=== PATIENT | male | born 1955 | race Caucasian/White ===

== ENCOUNTER → 2023-03-12 11:50 | Outpatient (CLI) | payer MEDICARE, SELFPAY ==
[2023-03-12 17:45] LABS: Basophils # 0.1 K/mm3 (0-0.2); Basophils % 0.4 % (0.1-2.0); Eosinophils # 0.3 K/mm3 (0.0-0.4); Eosinophils % 2.7 % (0.1-12.0); Hematocrit 45.5 % (42.0-52.0); Hemoglobin 15.6 g/dL (14.1-18.0); Lymphocytes # 2.2 K/mm3 (0.7-4.5); Lymphocytes % 19.2 % (10-50); Mean Corpuscular HGB Conc 34.2 g/dL (31.8-35.4); Mean Corpuscular Hemoglobin 30.8 pg (27.0-31.2); Mean Platelet Volume 9.5 fl (7.4-10.4); Monocytes # 0.8 K/mm3 (0.1-1.0); Monocytes % 6.7 % (1.7-9.3); Platelet Count 207 K/mm3 (142-424); Red Blood Count 5.05 M/mm3 (4.60-6.20); Red Cell Distribution Width 13.5 % (11.5-17.5); White Blood Count 11.2 K/mm3 (4.8-10.8)
[2023-03-12 17:48] LABS: Alanine Aminotransferase 24 U/L (12-78); Albumin Level 4.1 g/dl (3.5-5.0); Albumin/Globulin Ratio 1.2 (1.1-1.8); Alkaline Phosphatase 71 U/L (38-126); Anion Gap 13.2 mEq/L (5-15); Aspartate Amino Transferase 30 U/L (17-59); Bilirubin,Total 0.7 mg/dl (0.2-1.3); Blood Urea Nitrogen 17 mg/dl (9-20); Carbon Dioxide 24 mmol/L (22.0-30.0); Chloride 107 mmol/L (98-107); Estimated Glomerular Filt Rate 84 ml/min (>60); GFR (African American) 101 ML/MIN (>60); Globulin 3.3 g/dL (1.3-3.2); Glucose 98 mg/dl (74-100); Potassium 4.2 mmoL/L (3.5-5.1); Sodium 140 mmol/L (136-145); Total Protein,Serum 7.4 g/dl (6.3-8.2)
== END ==
PROVIDERS: PCP Nurse Practitioner Family; Visit Provider Nurse Practitioner Family
DX: I10 Essential (primary) hypertension (principal); E03.9 Hypothyroidism, unspecified
CPT/HCPCS: 80053; 84443; 85025

== ENCOUNTER → 2023-05-16 15:17 | Outpatient (CLI) | payer MEDICARE, SELFPAY ==
[2023-05-16 18:11] LABS: Amphetamine/Metha Screen,Urine Negative ng/ml (<1000); Barbiturates Screen,Urine Negative ng/ml (<200)
[2023-05-16 18:12] LABS: Benzodiazepines Screen,Urine Negative ng/ml (<200); Cannabinoid Screen,Urine Positive ng/ml (<50)
[2023-05-16 18:13] LABS: Cocaine Screen,Urine Negative ng/ml (<300)
[2023-05-16 18:14] LABS: Methadone Screen,Urine Negative ng/ml (<300)
[2023-05-16 18:15] LABS: Phencyclidine Screen,Urine Negative ng/ml (<25)
[2023-05-16 18:24] LABS: Opiate Screen,Urine Negative ng/ml (<300)
== END ==
PROVIDERS: PCP Family Medicine; Visit Provider Nurse Practitioner Family
DX: Z79.899 Other long term (current) drug therapy (principal)
CPT/HCPCS: 80305

== ENCOUNTER 2023-06-22 07:54 | Outpatient (CLI) | payer MEDICARE, SELFPAY ==
--- NOTE | 2023-06-22 07:55 | CT_ITS ---
FINAL REPORT TECHNIQUE: Axial imaging of the abdomen was obtained after the intravenous administration of contrast. This study was performed with techniques to keep radiation doses as low as reasonably achievable (ALARA). Individualized dose reduction techniques using automated exposure control or adjustment of mA and/or kV according to the patient's size were employed. CLINICAL HISTORY: eval for crohns FINDINGS: There is patchy airspace opacity left lower lobe which may represent atelectasis or mild pneumonia. Gallbladder is contracted. The liver has an unremarkable appearance, without evidence of mass. The gallbladder appears normal without evidence of gallstones. There is no evidence of biliary ductal dilatation. The pancreas appears normal. The spleen size is within normal limits. There is no evidence of renal mass or hydronephrosis. There is no evidence of adenopathy. No abnormal fluid collection is seen. No localized inflammatory processes identified. There is moderate gaseous distention with fluid. There is mild fecal impaction without evidence of bowel obstruction. There is no bowel wall thickening. Terminal ileum is normal. Appendix is normal. No imaging of the pelvis was obtained. IMPRESSION: No imaging of the pelvis obtained. Patchy airspace opacity left lower lobe which may represent atelectasis or mild pneumonia. No evidence of bowel wall thickening. Normal terminal ileum. Reviewed, Interpreted and Dictated by Jennifer Kelley MD Transcribed by Nilsa Penny Authenticated and [facility]
[2023-06-22 08:41] LABS: Blood Urea Nitrogen 23 mg/dl (9-20); Estimated Glomerular Filt Rate 66 ml/min (>60); GFR (African American) 80 ML/MIN (>60)
[2023-06-22] MEDS: 0.9 % SODIUM CHLORIDE 50 ML VIAL IV (10:00)
[2023-06-22] MEDS: SODIUM CHLORIDE 0.9% 10ML SYR (RAD ONLY) 10 ML IV (10:00)
[2023-06-22] MEDS: IOPAMIDOL-370 (76%);100ML BOTTLE 100 ML IV (10:01)
[2023-06-22] MEDS: BREEZA FLAVORED BEVERAGE 500ML BOTTLE (RAD USE ONLY) 1500 ML PO (10:01)
== END 2023-06-22 23:59 ==
LOC: RAD 07:55
PROVIDERS: PCP Family Medicine; Visit Provider Nurse Practitioner
DX: K50.90 Crohn's disease, unspecified, without complications (principal)
CPT/HCPCS: 36415; 74177; 82565; 84520; Q9967

== ENCOUNTER 2023-07-19 18:25 | Outpatient (CLI) | payer MEDICARE, SELFPAY ==
[2023-07-19 16:34] LABS: Basophils # 0.1 K/mm3 (0-0.2); Basophils % 0.6 % (0.1-2.0); Eosinophils # 0.3 K/mm3 (0.0-0.4); Eosinophils % 3.2 % (0.1-12.0); Hemoglobin 14.7 g/dL (14.1-18.0); Lymphocytes # 2.4 K/mm3 (0.7-4.5); Lymphocytes % 22.1 % (10-50); Mean Corpuscular HGB Conc 32.7 g/dL (31.8-35.4); Mean Corpuscular Hemoglobin 30.3 pg (27.0-31.2); Mean Corpuscular Volume 92.7 fl (80-94); Mean Platelet Volume 9.6 fl (7.4-10.4); Monocytes # 0.9 K/mm3 (0.1-1.0); Monocytes % 8.1 % (1.7-9.3); Neutrophils # 7.2 K/mm3 (1.8-7.8); Neutrophils % 66.1 % (37.0-80.0); Platelet Count 209 K/mm3 (142-424); Red Blood Count 4.85 M/mm3 (4.60-6.20); Red Cell Distribution Width 13.5 % (11.5-17.5); White Blood Count 10.9 K/mm3 (4.8-10.8)
[2023-07-19 16:37] LABS: Alanine Aminotransferase 24 U/L (12-78); Albumin Level 3.8 g/dl (3.5-5.0); Albumin/Globulin Ratio 1.2 (1.1-1.8); Alkaline Phosphatase 70 U/L (38-126); Anion Gap 7.6 mEq/L (5-15); Aspartate Amino Transferase 34 U/L (17-59); Bilirubin,Total 0.8 mg/dl (0.2-1.3); Blood Urea Nitrogen 19 mg/dl (9-20); Calcium 9.1 mg/dl (8.4-10.2); Carbon Dioxide 28 mmol/L (22.0-30.0); Chloride 108 mmol/L (98-107); Chol/HDL Ratio 5.4 (1-3.5); Cholesterol 156 mg/dl (140-200); Estimated Glomerular Filt Rate 74 ml/min (>60); GFR (African American) 90 ML/MIN (>60); Globulin 3.1 g/dL (1.3-3.2); Glucose 86 mg/dl (74-100); HDL Cholesterol 29 mg/dl (40-60); Potassium 4.6 mmoL/L (3.5-5.1); Sodium 139 mmol/L (136-145); Total Protein,Serum 6.9 g/dl (6.3-8.2); Triglycerides 157 mg/dl (30-150); VLDL Cholesterol 31 mg/dL (0-40)
[2023-07-19 16:48] LABS: Direct LDL Cholesterol 96.73 mg/dL (100-129)
[2023-07-19 17:08] LABS: Thyroid Stimulating Hormone 0.07 uIU/mL (0.465-4.68)
== END 2023-07-19 23:59 ==
LOC: LAB.DROPOF 18:26
PROVIDERS: PCP Family Medicine; Visit Provider Family Medicine
DX: I10 Essential (primary) hypertension; E03.8 Other specified hypothyroidism
CPT/HCPCS: 80053; 80061; 84443; 85025

== ENCOUNTER → 2023-07-26 20:21 | Outpatient (CLI) | payer MEDICARE, SELFPAY | PROVIDERS: PCP Family Medicine; Visit Provider Nurse Practitioner Family | DX: G47.33 Obstructive sleep apnea (adult) (pediatric) (principal); R06.83 Snoring; R40.0 Somnolence; I10 Essential (primary) hypertension; E66.9 Obesity, unspecified; Z68.37 Body mass index [BMI] 37.0-37.9, adult | CPT/HCPCS: 95811 ==

== ENCOUNTER 2023-09-11 14:56 | Outpatient (CLI) | payer MEDICARE, SELFPAY | END 2023-09-11 23:59 | disposition home or self-care (01) | LOC: LAB 14:58 | PROVIDERS: PCP Family Medicine; Visit Provider Nurse Practitioner | DX: K50.90 Crohn's disease, unspecified, without complications (principal); R19.7 Diarrhea, unspecified | CPT/HCPCS: 83993 ==

== ENCOUNTER 2023-09-11 15:28 | Outpatient (POV) | payer MEDICARE, SELFPAY | END 2023-09-11 23:59 | disposition home or self-care (01) | LOC: SC 15:28 | PROVIDERS: PCP Family Medicine; Visit Provider Dermatology | DX: Z00.00 Encounter for general adult medical examination without abnormal findings (principal) ==

== ENCOUNTER 2023-09-18 18:00 | Outpatient (CLI) | payer MEDICARE, SELFPAY | END 2023-09-18 23:59 | disposition home or self-care (01) | LOC: LAB.DROPOF 09-19 12:58 | PROVIDERS: PCP Family Medicine; Visit Provider Family Medicine | DX: E03.9 Hypothyroidism, unspecified (principal) | CPT/HCPCS: 84443 ==

== ENCOUNTER 2023-12-06 08:42 | Day surgery (SDC) | payer MEDICARE, SELFPAY ==
[2023-12-04 13:05] VITALS: BMI 35.2
[2023-12-06] MEDS: LACTATED RINGERS 1000ML 1,000 ML 100 ML IV (08:56)
[2023-12-06 08:58] VITALS: BP 168/83; PULSE 59; RESP 18; TEMP 36.2; O2SAT 97
[2023-12-06 09:38] VITALS: O2SAT 97
--- NOTE | 2023-12-06 09:49 | EXP.ANES.CKL ---
[facility] Disclaimer: The information contained in this section may have been updated after the patient was seen, as this information can be updated by other users. Medical History Anxiety Crohn disease Hypertension Depression BPH (benign prostatic hyperplasia) Edema Narcolepsy Hyperlipidemia Hypothyroidism Surgical History Previous back surgery Family History Father Cancer lung Grandmother Coronary artery disease Sister Cancer thyroid Social History Smoking Status: Former smoker smoking status stop date: 05/21/2004 alcohol intake: current alcohol intake frequency: a few times a week substance use type: denies use current occupational status: retired Travel in the last 8 weeks: None household members: spouse housing: house marital status: caffeine: Yes do you feel safe at home: Yes victim of physical abuse: No victim of emotional abuse: No victim of sexual abuse: No would you like helpful sources: No [facility] Anesthesia Checklist Patient Identification Patient Identification: Arm Band Structural Data Admitted From: Home Planned Operative Procedure/s: colonoscopy Consent for Planned Operative Procedure(s) Verified: Yes Verified Documents: Surgical Consent and History and Physical NPO Status Verified Time NPO: 00:00 Additional verifications Anesthesia Reactions: No Airway Assessment Mallampati Score:: Class III C-Spine Mobility Assessed: Yes TMJ Mobility Assessed: Yes Dentition: Good Dentition Neurological Assessment Level of Consciousness: Awake, Alert and Appropriate Anesthesia Plan Anesthesia Risk discussed: Yes Anesthesia Plan: Verified ASA Class: III Anesthesia Type: MAC
--- NOTE | 2023-12-06 09:54 | HMH.SCOPE ---
Procedure: Date: 12/06/23 Patient Date of :: 1955 Procedure Performed:: Screening colonoscopy Indications:: Possible history of crohns disease Performing Provider:: Ana Martinez MD Referring Provider:: Cristal Martinez APRN Sedation:: Propofol Procedure:: After placing the patient in the left lateral decubitus position, the colonoscopy was gently inserted into the rectum and under direct visualization advanced to the cecum which was identified by transillumination in the right lower quadrant, identification of the ileocecal valve, appendiceal orifice, and cecal strap. Color, texture, mucosa, and anatomy of the colon were carefully examined with the scope. Findings:: Anal canal: normal Rectum: normal Sigmoid colon: normal without polyps or inflammatory changes Descending colon: normal without polyps or inflammatory changes Splenic flexure: normal Transverse colon: normal without polyps or inflammatory changes Hepatic flexure: normal Ascending colon: normal without polyps or inflammatory changes Cecum: normal Terminal ileum: not visualized but normal per enterography Impression: Normal colonoscopy. No evidence of IBD. Recommendations:: Follow up examination in about TEN years or so, sooner if clinically indicated. Complications:: None Estimated blood obtained (mL): 0 Colonoscopy Component Colonoscopy Component Was a colonoscopy performed during today's procedure?: Yes Recommended follow up colonoscopy of at least 10 years?: Yes
[2023-12-06 09:55] VITALS: BP 108/43; PULSE 48; RESP 18; TEMP 36.8; O2SAT 92
[2023-12-06 10:05] VITALS: BP 102/54; PULSE 47; RESP 18; O2SAT 95
[2023-12-06 10:15] VITALS: BP 127/85; PULSE 72; RESP 18; O2SAT 93
[2023-12-06 10:30] VITALS: BP 132/66; PULSE 48; RESP 18; O2SAT 98
== END 2023-12-06 10:52 | disposition home or self-care (01) ==
PROVIDERS: PCP Family Medicine; Visit Provider Internal Medicine Gastroenterology
PROC: (CPT G0121; principal; 2023-12-06 09:30)
DX: Z12.11 Encounter for screening for malignant neoplasm of colon (principal); K50.90 Crohn's disease, unspecified, without complications
CPT/HCPCS: G0121; J7120

== ENCOUNTER 2024-01-07 10:56 | Outpatient (CLI) | payer MEDICARE, SELFPAY | END 2024-01-07 23:59 | disposition home or self-care (01) | LOC: LAB.DROPOF 01-08 10:56 | PROVIDERS: PCP Family Medicine; Visit Provider Family Medicine | DX: E03.9 Hypothyroidism, unspecified (principal) | CPT/HCPCS: 84443 ==

== ENCOUNTER 2024-07-04 13:43 | Outpatient (CLI) | payer MEDICARE, SELFPAY ==
[2024-07-04 16:30] LABS: Basophils # 0.1 K/mm3 (0-0.2); Basophils % 0.5 % (0.1-2.0); Eosinophils # 0.2 K/mm3 (0.0-0.4); Eosinophils % 2.5 % (0.1-12.0); Hematocrit 43.4 % (42.0-52.0); Hemoglobin 14.4 g/dL (14.1-18.0); Lymphocytes # 2.4 K/mm3 (0.7-4.5); Lymphocytes % 25.2 % (10-50); Mean Corpuscular HGB Conc 33.2 g/dL (31.8-35.4); Mean Corpuscular Hemoglobin 28.7 pg (27.0-31.2); Mean Corpuscular Volume 86.6 fl (80-94); Mean Platelet Volume 11.2 fl (7.4-10.4); Monocytes # 0.9 K/mm3 (0.1-1.0); Monocytes % 9.5 % (1.7-9.3); Neutrophils # 5.8 K/mm3 (1.8-7.8); Neutrophils % 61.9 % (37.0-80.0); Platelet Count 223 K/mm3 (142-424); Red Blood Count 5.01 M/mm3 (4.60-6.20); Red Cell Distribution Width 12.8 % (11.5-17.5); White Blood Count 9.4 K/mm3 (4.8-10.8)
[2024-07-04 18:16] LABS: Alanine Aminotransferase 28 U/L (12-78); Albumin/Globulin Ratio 1.5 (1.1-1.8); Alkaline Phosphatase 63 U/L (38-126); Anion Gap 15.1 mEq/L (5-15); Aspartate Amino Transferase 27 U/L (17-59); Bilirubin,Total 0.5 mg/dl (0.2-1.3); Blood Urea Nitrogen 11 mg/dl (9-20); Calcium 8.8 mg/dl (8.4-10.2); Carbon Dioxide 25 mmol/L (22.0-30.0); Chloride 103 mmol/L (98-107); Estimated Glomerular Filt Rate 96 ml/min (>60); GFR (African American) 116 ML/MIN (>60); Globulin 2.7 g/dL (1.3-3.2); Glucose 98 mg/dl (74-100); Potassium 4.1 mmoL/L (3.5-5.1); Sodium 139 mmol/L (136-145); Total Protein,Serum 6.7 g/dl (6.3-8.2)
[2024-07-04 19:12] LABS: HIV Combo NEGATIVE (Negative)
[2024-07-04 19:20] LABS: Hepatitis C Ab Qual. W/ RFX NEGATIVE (Negative)
== END 2024-07-04 23:59 | disposition home or self-care (01) ==
LOC: LAB.DROPOF 07-06 04:30
PROVIDERS: PCP Nurse Practitioner Family; Visit Provider Nurse Practitioner Family
DX: R60.9 Edema, unspecified (principal); J44.9 Chronic obstructive pulmonary disease, unspecified; E03.9 Hypothyroidism, unspecified; Z11.59 Encounter for screening for other viral diseases
CPT/HCPCS: 80053; 84443; 85025; 86803; 87389

== ENCOUNTER → 2024-07-18 20:10 | Outpatient (CLI) | payer MEDICARE, SELFPAY | PROVIDERS: PCP Family Medicine; Visit Provider Specialist | DX: G47.33 Obstructive sleep apnea (adult) (pediatric) (principal); G47.39 Other sleep apnea; I10 Essential (primary) hypertension | CPT/HCPCS: 95811 ==

== ENCOUNTER 2024-10-23 09:48 | Day surgery (SDC) | payer MEDICARE, SELFPAY ==
[2024-10-23] VITALS (7 sets, daily range): BP systolic 115–160; BP diastolic 71–89; PULSE 43–59; RESP 16–18; TEMP 36.3–36.5; O2SAT 93–98; BMI 36.6
[2024-10-23] MEDS: LACTATED RINGERS 1000ML 1,000 ML 50 ML IV (11:16)
--- NOTE | 2024-10-23 11:39 | P.PNANES_ITS ---
[facility] Disclaimer: The information contained in this section may have been updated after the patient was seen, as this information can be updated by other users. Medical History (Updated 10/23/24 @ 11:04 by Sharla Wise RN) Sleep apnea COPD (chronic obstructive pulmonary disease) History of gastroesophageal reflux (GERD) Intolerance to BiPAP/CPAP Skin cancer Anxiety Crohn disease Hypertension Depression BPH (benign prostatic hyperplasia) Edema Narcolepsy Hyperlipidemia Hypothyroidism Surgical History (Updated 10/23/24 @ 11:04 by Sharla Wise RN) Status post surgical removal of malignant neoplasm of skin Previous back surgery Family History Father Cancer lung Grandmother Coronary artery disease Sister Cancer thyroid Social History (Updated 10/23/24 @ 11:04 by Sharla Wise RN) Smoking Status: Former smoker smoking status stop date: 05/21/2004 alcohol intake: current alcohol intake frequency: 0-2 drinks per day substance use type: denies use current occupational status: retired Travel in the last 8 weeks?: None household members: spouse housing: house marital status: caffeine: Yes do you feel safe at home: Yes victim of physical abuse: No victim of emotional abuse: No victim of sexual abuse: No would you like helpful sources: No Have you lived/traveled outside US in past 30 days?: No Contact w/someone who lives/traveled outside US past 30 days?: No Exposure to someone with infectious disease in past 14 days?: No Do you have a fever (greater than 100.4 F or 38 C)?: No Have you tested positive for COVID-19?: No Exposed to someone with COVID-19 in past 14 days?: No Do you have a sore throat?: No Do you have a cough?: No Do you have any weakness?: No Are you experiencing any nausea/vomitting?: No Do you have any diarrhea?: No Are you experiencing any unusual bleeding?: No Do you have any muscle aches/pain?: No Do you have any abdominal pain?: No Are you experiencing loss of taste or smell?: No [facility] Anesthesia Checklist Patient Identification Patient Identification: Arm Band Structural Data Admitted From: Home Planned Operative Procedure/s: EGD Consent for Planned Operative Procedure(s) Verified: Yes Verified Documents: Surgical Consent and History and Physical NPO Status Verified Time NPO: 00:00 Additional verifications Anesthesia Reactions: No Airway Assessment Mallampati Score:: Class II C-Spine Mobility Assessed: Yes TMJ Mobility Assessed: Yes Dentition: Edentulous Neurological Assessment Level of Consciousness: Awake, Alert and Appropriate Anesthesia Plan Anesthesia Risk discussed: Yes Anesthesia Plan: Verified ASA Class: III Anesthesia Type: MAC
--- NOTE | 2024-10-23 11:40 | EXP.HP ---
History of Present Illness *Admission Date: 10/23/24 *Reason for visit:: Dysphagia, early satiety, regurgitation and bloating *History of present illness: Mr. Cook is a 69-year-old gentleman who is here for diagnostic colonoscopy secondary to dysphagia, fullness, early satiety, regurgitation, bloating and weight loss. The examination is deemed medically necessary for diagnostic upper endoscopy. The patient has been seen, interviewed and examined prior to the procedure by both myself and the anesthesia provider. [facility] Disclaimer: The information contained in this section may have been updated after the patient was seen, as this information can be updated by other users. Medical History (Updated 10/23/24 @ 11:04 by Sharla Wise RN) Sleep apnea COPD (chronic obstructive pulmonary disease) History of gastroesophageal reflux (GERD) Intolerance to BiPAP/CPAP Skin cancer Anxiety Crohn disease Hypertension Depression BPH (benign prostatic hyperplasia) Edema Narcolepsy Hyperlipidemia Hypothyroidism Surgical History (Updated 10/23/24 @ 11:04 by Sharla Wise RN) Status post surgical removal of malignant neoplasm of skin Previous back surgery Family History Father Cancer lung Grandmother Coronary artery disease Sister Cancer thyroid Social History (Updated 10/23/24 @ 11:04 by Sharla Wise RN) Smoking Status: Former smoker smoking status stop date: 05/21/2004 alcohol intake: current alcohol intake frequency: 0-2 drinks per day substance use type: denies use current occupational status: retired Travel in the last 8 weeks?: None household members: spouse housing: house marital status: caffeine: Yes do you feel safe at home: Yes victim of physical abuse: No victim of emotional abuse: No victim of sexual abuse: No would you like helpful sources: No Have you lived/traveled outside US in past 30 days?: No Contact w/someone who lives/traveled outside US past 30 days?: No Exposure to someone with infectious disease in past 14 days?: No Do you have a fever (greater than 100.4 F or 38 C)?: No Have you tested positive for COVID-19?: No Exposed to someone with COVID-19 in past 14 days?: No Do you have a sore throat?: No Do you have a cough?: No Do you have any weakness?: No Are you experiencing any nausea/vomitting?: No Do you have any diarrhea?: No Are you experiencing any unusual bleeding?: No Do you have any muscle aches/pain?: No Do you have any abdominal pain?: No Are you experiencing loss of taste or smell?: No Other Medical History Have you received the Pneumonia Vaccine: Yes Review of Systems Review of Systems Review of systems (narrative): Negative *Cardiovascular Comments: Negative *Gastrointestinal Comments: Negative *Genitourinary Comments: Negative *Musculoskeletal Comments: Negative *Neurologic Comments: Negative Meds Home Medications and Allergies Home Medications ?Medication ?Instructions ?Recorded ?Confirmed ?Type rosuvastatin 20 mg tablet (Crestor) 20 mg PO DAILY Cholesterol 30 days 03/16/23 10/23/24 Rx #30 tabs tamsulosin 0.4 mg capsule See Rx Instructions .Route 01/11/24 10/23/24 Rx .COMPLEX #30 caps fluticasone 250 mcg-salmeterol 50 1 inh inhalation BID #60 ea 07/04/24 10/23/24 Rx mcg/dose blistr powdr for inhalation (Advair Diskus) levothyroxine 50 mcg tablet 50 mcg PO DAILY #30 tabs 07/08/24 10/23/24 Rx bupropion HCl 300 mg 24 hr tablet, 300 mg PO DAILY anxiety/depression 07/14/24 10/23/24 Rx extended release (Wellbutrin XL) 30 days #30 tabs levothyroxine 200 mcg tablet 200 mcg PO DAILY hypothyroid #30 09/01/24 10/23/24 Rx (Synthroid) tabs fenofibrate 160 mg tablet 160 mg PO DAILY #30 tabs 09/24/24 10/23/24 Rx losartan 25 mg tablet (Cozaar) 25 mg PO DAILY HTN #90 tabs 09/24/24 10/23/24 Rx armodafinil 200 mg tablet (Nuvigil) 200 mg PO DAILY narcolepsy #30 tabs 10/08/24 10/23/24 Rx New Prescriptions to Start Prescriptions: Allergies Allergy/AdvReac Type Severity Reaction Status Date / Time No Known Allergies Allergy Verified 10/22/24 11:09 Exam Data for Last 24 hours Vital signs and Labs for Last 24 Hours: Temp Pulse Resp BP Pulse Ox O2 Del Method 97.7 F 59 L 18 152/77 H 93 L Room Air 10/23/24 10:59 10/23/24 10:59 10/23/24 10:59 10/23/24 10:59 10/23/24 10:59 10/23/24 10:59 I & O for Last 24 hours: Intake & Output 10/20/24 10/21/24 10/22/24 10/23/24 23:59 23:59 23:59 23:59 Weight 270 lb *Routine HEENT Exam Head: Present normocephalic Eye: Present EOMI and PERRL ENT: Present mucous membranes moist *Routine Neck Exam Neck: Present supple *Routine Respiratory Exam Respiratory: Present CTA bilaterally *Routine Cardiovascular Exam Cardiovascular: Present RRR *Routine Abdominal Exam Abdominal: Present soft and normoactive bowel sounds; Absent tenderness *Routine Rectal Exam Rectal:: deferred *Routine Genitalia Exam Genitalia:: deferred *Routine Extremities Exam Extremities: Absent cyanosis, clubbing or edema *Routine Skin Exam Skin: Present warm; Absent rash *Routine Neurological Exam Neurological: Present alert and oriented X3 Assessment and Plan *Assessment and plan (1) Dysphagia: Status: Acute Category: Medical Code(s): R13.10 - Dysphagia, unspecified (2) Regurgitation of food: Status: Acute Category: Medical Code(s): R11.10 - Vomiting, unspecified (3) Early satiety: Status: Acute Category: Medical Code(s): R68.81 - Early satiety (4) Weight loss: Status: Acute Category: Medical Code(s): R63.4 - Abnormal weight loss (5) Bloating: Status: Acute Category: Medical Code(s): R14.0 - Abdominal distension (gaseous) Plan A/P: 1. Dysphagia with regurgitation of food, early satiety, weight loss and bloating is the preprocedural diagnosis. The patient will be anesthetized/sedated using MAC sedation. The patient has been seen and examined. Cardiac and lung assessment prior to the examination is stable. Proceed with planned diagnostic EGD.
--- NOTE | 2024-10-23 11:55 | P.PCN_ITS ---
[facility] Procedure Note Date: 10/23/24 Time: 12:12 Procedure Note:: Upper Endoscopy Procedure Report: Esophagogastroduodenoscopy with cold biopsies and TTS balloon dilation Endoscopost: Elver Pitt II, MD Referring Physician: Jatinder Clifford MD Date of Procedure: October 23, 2024 Equipment: Olympus GIF 190 standard upper endoscope Sedation: MAC sedation Indications: Mr. Cook is a 69-year-old gentleman who is here for diagnostic/therapeutic upper endoscopy secondary to choking and dysphagia. About 4 weeks ago he started Astepro nasal spray and then developed dysphagia. He is having food regurgitation into his nose and mouth. He has lost 6 pounds in the last couple of weeks. He is able to tolerate liquids. He reports no heartburn or reflux. He has noted some bloating, gassiness and belching. He was diagnosed with Crohn's disease about 13 years ago elsewhere. His colonoscopy in November 2023 (Ana Martinez MD) was normal with no evidence of active Crohn's disease. Dr. Martinez did not evaluate the terminal ileum and thus undetermined whether he had Crohn's ileitis. Procedure: Prior to the procedure, a history and physical exam was performed, and patient's medications and allergies were reviewed. The risks, benefits and alternatives of the sedation and procedure were discussed with the patient. All questions were answered and informed consent was obtained. The patient was brought to the procedure room. Patient identification and proposed procedure were verified by the physician and the nurse. The patient was placed in a left lateral decubitus position and the scope was passed under direct vision. Throughout the procedure, the patient's blood pressure, pulse, and oxygen saturations were monitored continuously. The upper GI endoscopy was accomplished without difficulty. The patient tolerated the procedure well. Findings: The scope was passed directly into the upper esophagus and advanced to the fourth portion of duodenum and proximal jejunum. A cold biopsy was taken from the proximal jejunum for disaccharidase assay. The post bulbar duodenum and duodenal bulb were normal with normal mucosa and conniventes. The scope was withdrawn through a normal duodenal bulb and pylorus into the stomach. There was mild antral gastropathy. The remainder of the body and fundus of the stomach was normal. Upon retroflexion there was a very small sliding hiatal hernia with extrinsic mass like protuberance at the gastroesophageal junction. The scope was then withdrawn into the esophagus. In the distal esophagus was a friable and fungating mass that encompassed one half of the circumference of the esophagus along the posterior wall and extended approximately 2 cm. Multiple cold biopsies were obtained and there was some stenosis/stricturing at this site. There were stasis changes in the mid and proximal esophagus with some esophageal dilation of luminal diameter. The distal malignant appearing stricture was then dilated to 20 mm with a TTS hydrostatic balloon. Impression: 1. Friable/fungating mass in distal esophagus (at GE junction) extending 2 cm along posterior esophageal wall?status post multiple biopsies and dilation to 20 mm Plan: I do suspect malignant distal esophageal stricture. I will follow-up the biopsies and discussed the findings with the patient and family. I will obtain staging workup with CT scan of the chest and abdomen. I will make referral to oncology versus thoracic surgery based upon CT staging.
[2024-10-29 17:51] LABS: Disclaimer Notes (.); Interpretation Notes (.); Lactase 11.4 (>/= 14.0); Maltase 246.17 (>/= 110.0); Palatinase 14.81 (>/= 8.5); Reference Notes (.); Sucrase 54.24 (>/= 25.0)
== END 2024-10-23 13:37 | disposition home or self-care (01) ==
PROVIDERS: PCP Family Medicine; Visit Provider Internal Medicine Gastroenterology
PROC: 0DJ08ZZ Inspection of Upper Intestinal Tract, Via Natural or Artificial Opening Endoscopic (ICD-10-PCS; CPT 43239; principal; 2024-10-23 12:00)
DX: C16.0 Malignant neoplasm of cardia (principal); K22.2 Esophageal obstruction; K31.89 Other diseases of stomach and duodenum; K44.9 Diaphragmatic hernia without obstruction or gangrene; G47.30 Sleep apnea, unspecified; J44.9 Chronic obstructive pulmonary disease, unspecified; F41.9 Anxiety disorder, unspecified; F32.A Depression, unspecified; I10 Essential (primary) hypertension; N40.0 Benign prostatic hyperplasia without lower urinary tract symptoms; G47.419 Narcolepsy without cataplexy; E78.5 Hyperlipidemia, unspecified; E03.9 Hypothyroidism, unspecified; Z87.891 Personal history of nicotine dependence; Z79.899 Other long term (current) drug therapy; Z79.51 Long term (current) use of inhaled steroids; Z79.890 Hormone replacement therapy
CPT/HCPCS: 43239; 43249; 82657; 88305; 88341; 88342; 88360; C1726; J2003; J2704; J7120

== ENCOUNTER 2024-10-25 14:38 | Emergency (ER) | payer MEDICARE, SELFPAY ==
[2024-10-25 14:45] VITALS: RESP 16
[2024-10-25 14:49] VITALS: BP 184/88; PULSE 67; RESP 18; TEMP 37.1; O2SAT 98; BMI 35.3
--- NOTE | 2024-10-25 14:49 | CT_ITS ---
PROCEDURE INFORMATION: Exam: CT Head Without Contrast Exam date and time: 10/25/2024 2:52 PM Age: 69 years old Clinical indication: Stroke-like symptoms; Other: Possible stroke TECHNIQUE: Imaging protocol: Computed tomography of the head without contrast. Radiation optimization: All CT scans at this facility use at least one of these dose optimization techniques: automated exposure control; mA and/or kV adjustment per patient size (includes targeted exams where dose is matched to clinical indication); or iterative reconstruction. Other technique: STROKE PROTOCOL was implemented. COMPARISON: No relevant prior studies available. FINDINGS: Brain: Large old right posterior middle cerebral artery distribution parietal right-sided infarct. Moderate to severe atrophy and moderate to severe small vessel ischemic change in the deep white matter. No midline shift. No intracranial bleed. Cerebral ventricles: No ventriculomegaly. Paranasal sinuses: Visualized sinuses are unremarkable. No fluid levels. Mastoid air cells: Visualized mastoid air cells are well aerated. Bones: Unremarkable. No acute fracture. Soft tissues: Unremarkable. IMPRESSION: No acute abnormality. 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 ASSESSMENT: ASPECTS (Tere Stroke Program Early CT Score) is 10.
--- NOTE | 2024-10-25 14:49 | CT_ITS ---
PROCEDURE INFORMATION: Exam: CTA Neck With Contrast Exam date and time: 10/25/2024 2:55 PM Age: 69 years old Clinical indication: Possible stroke TECHNIQUE: Imaging protocol: Computed tomographic angiography of the neck with contrast. Exam focused on the cervical segments of the vasculature. 3D rendering (Not supervised by radiologist): MIP and/or 3D reconstructed images were created by the technologist. Radiation optimization: All CT scans at this facility use at least one of these dose optimization techniques: automated exposure control; mA and/or kV adjustment per patient size (includes targeted exams where dose is matched to clinical indication); or iterative reconstruction. Contrast material: ISOVUE 370; Contrast volume: 150 ml; Contrast route: INTRAVENOUS (IV); COMPARISON: CT ANGIO NECK 10/25/2024 2:55 PM FINDINGS: Right common carotid artery: No stenosis. No dissection or occlusion. Right internal carotid artery: Mild stenosis of the extracranial, proximal ICA segment. No dissection or occlusion. Right external carotid artery: No occlusion or stenosis of the origin. Left common carotid artery: No stenosis. No dissection or occlusion. Left internal carotid artery: Mild stenosis of the extracranial, proximal ICA segment. No dissection or occlusion. Left external carotid artery: No occlusion or stenosis of the origin. Right vertebral artery: No stenosis. No dissection or occlusion. Left vertebral artery: No stenosis. No dissection or occlusion. Brain: Chronic encephalomalacia in the right posterior parietal lobe, from remote infarction. No findings to suggest acute infarction. Severely limited study since the contrast bolus was obtained in the pulmonary artery phase of contrast, rather than the aortic phase of contrast, limiting opacification of the cervical and intracranial arteries. Soft tissues: Normal. No significant soft tissue swelling. Bones/joints: No acute fracture. IMPRESSION: 1. Severely limited study since the contrast bolus was obtained in the pulmonary artery phase of contrast, rather than the aortic phase of contrast, limiting opacification of the cervical and intracranial arteries. 2. Mild stenosis of the bilateral extracranial, proximal ICA segments. REFERENCES: NASCET CRITERIA. The degree of stenosis in the cervical segment of the internal carotid artery is based on NASCET criteria. Normal is no stenosis. Mild is less than 50% stenosis. Moderate is 50-69% stenosis. Severe is 70% to 99% stenosis. Total occlusion is no detectable patent lumen.
--- NOTE | 2024-10-25 14:49 | ECG_ITS ---
APPROVED REPORT Exam: Resting ECG HR:52 bpm ECG Measurements Heart Rate 52 AXES NJ 322 P 79 QRSd 101 QRS -42 QT 455 T 11 QTc 434 Conclusion SINUS BRADYCARDIA WITH FIRST DEGREE AV BLOCK LEFT AXIS DEVIATION [QRS AXIS < -30] Electronically signed by : EDILBERTO MEYER, 10/26/2024 07:13:46
--- NOTE | 2024-10-25 14:49 | CT_ITS ---
PROCEDURE INFORMATION: Exam: CTA Head With Contrast, Arteriography Exam date and time: 10/25/2024 2:55 PM Age: 69 years old Clinical indication: Stroke-like symptoms; Other: Possible stroke TECHNIQUE: Imaging protocol: Computed tomographic angiography of the head with contrast. Exam focused on the arteries. 3D rendering (Not supervised by radiologist): MIP and/or 3D reconstructed images were created by the technologist. Radiation optimization: All CT scans at this facility use at least one of these dose optimization techniques: automated exposure control; mA and/or kV adjustment per patient size (includes targeted exams where dose is matched to clinical indication); or iterative reconstruction. Contrast material: ISO 370; Contrast volume: 150 ml; Contrast route: INTRAVENOUS (IV); COMPARISON: CT HEAD/BRAIN WO CON 10/25/2024 2:52 PM FINDINGS: ANTERIOR CIRCULATION: Right internal carotid artery: Intracranial segment is patent with no significant stenosis. No aneurysm. Right middle cerebral artery: There does appear to be a possible clot or non filling of the right middle cerebral artery M2 branch. Right anterior cerebral artery: No occlusion or significant stenosis. No aneurysm. Left internal carotid artery: Intracranial segment is patent with no significant stenosis. No aneurysm. Left middle cerebral artery: No occlusion or significant stenosis. No aneurysm. Left anterior cerebral artery: No occlusion or significant stenosis. No aneurysm. POSTERIOR CIRCULATION: Right vertebral artery: No occlusion or significant stenosis. No aneurysm. Left vertebral artery: No occlusion or significant stenosis. No aneurysm. Basilar artery: No occlusion or significant stenosis. No aneurysm. Right posterior cerebral artery: No occlusion or significant stenosis. No aneurysm. Left posterior cerebral artery: No occlusion or significant stenosis. No aneurysm. Other arteries: Very poor contrast noted within the arterial system. Brain: Please see the head CT report. Cerebral ventricles: No ventriculomegaly. Bones/joints: Unremarkable. No acute fracture. Soft tissues: Unremarkable. IMPRESSION: Poor arterial contrast with a questionable thrombus within a M2 branch. If clinically indicated consider repeat examination with better contrast.
--- NOTE | 2024-10-25 14:49 | CT_ITS ---
PROCEDURE INFORMATION: Exam: CTA Chest With Contrast Exam date and time: 10/25/2024 3:04 PM Age: 69 years old Clinical indication: Shortness of breath; Additional info: SOA, resp difficulty TECHNIQUE: Imaging protocol: Computed tomographic angiography of the chest with contrast. Exam focused on the arteries. 3D rendering (Not supervised by radiologist): MIP and/or 3D reconstructed images were created by the technologist. Radiation optimization: All CT scans at this facility use at least one of these dose optimization techniques: automated exposure control; mA and/or kV adjustment per patient size (includes targeted exams where dose is matched to clinical indication); or iterative reconstruction. Contrast material: ISO 370; Contrast volume: 50 ml; Contrast route: INTRAVENOUS (IV); COMPARISON: CT ANGIO NECK 10/25/2024 2:55 PM FINDINGS: Pulmonary arteries: Borderline contrast in the main pulmonary artery at 245. No pulmonary emboli seen given the limitations of borderline contrast and imaging parameters. Aorta: Unremarkable. No aortic aneurysm. No aortic dissection. Lungs: Mild infiltrate in the left lower lobe possibly atelectasis. Pleural spaces: Unremarkable. No pneumothorax. No pleural effusion. Heart: Unremarkable. No cardiomegaly. No pericardial effusion. Lymph nodes: Unremarkable. No enlarged lymph nodes. Diaphragm: Hiatal hernia. Bones/joints: Unremarkable. No acute fracture. Soft tissues: Unremarkable. IMPRESSION: No acute findings.
--- NOTE | 2024-10-25 14:52 | ED_ITS ---
<Statement entered by Claudia Romo MD - 10/25/24 23:19> I was consulted by the JOHNATHON, and we discussed the complexity of the problems being addressed. I approved the treatment and management plan for this patient's care in the emergency department, thus performing a substantive portion of the medical decision making. Claudia Romo MD, SHAUNA, FACEP <Statement entered by Kendra Ayon DO - 10/25/24 15:00> I was consulted by the JOHNATHON, and we discussed the complexity of the problems being addressed. I approved the treatment and management plan for this patient's care in the emergency department, thus performing a substantive portion of the medical decision making. Patient arrives as a stroke alert with concern for slurred speech, facial asymmetry, tongue deviation per . They initially reported chest pain, but it does not sound like he is truly had any chest pain. She did note that he was breathing weird this morning. She states that she had him sit down and try to put his CPAP on but this did not help as it usually does. Last known well was last night sometime before going to bed. is not sure exactly what time he went to bed or when it was that she last saw him normal last night. NIH or scale of 6 for dysarthria, aphasia, mild left facial asymmetry, and discoordination of the left upper extremity, though it is difficult to assess because he is having difficulty follow commands. He does answer orientation questions appropriately and does not have any significant limb weakness. He was taken emergently for CT scans stroke protocol given stroke symptoms, though he is outside of window for tPA/TNK. I added on a CTA PE protocol given his reported difficulty breathing at home and shortness of breath. Patient care signed out to the oncoming provider at my departure at 1500 Kendra Ayon DO Discharge Plan Disposition Patient Disposition: Xfer Other Prescriptions Prescriptions: No Action fluticasone propion-salmeterol [Advair Diskus] 250-50 mcg/dose blister with device 1 inh inhalation BID Qty: 60 2RF fenofibrate 160 mg tablet 160 mg PO DAILY Qty: 30 2RF losartan [Cozaar] 25 mg tablet 25 mg PO DAILY Qty: 90 0RF rosuvastatin [Crestor] 20 mg tablet 20 mg PO DAILY 30 Days Qty: 30 2RF tamsulosin 0.4 mg capsule See Rx Instructions .ROUTE .COMPLEX Qty: 30 2RF Dose Instruction: TAKE 1 CAPSULE 1 TIME EACH DAY FOR PROSTATE Rx Instructions: TAKE 1 CAPSULE 1 TIME EACH DAY FOR PROSTATE levothyroxine 50 mcg tablet 50 mcg PO DAILY Qty: 30 3RF bupropion HCl [Wellbutrin XL] 300 mg tablet extended release 24 hr 300 mg PO DAILY 30 Days Qty: 30 2RF levothyroxine [Synthroid] 200 mcg tablet 200 mcg PO DAILY Qty: 30 3RF armodafinil [Nuvigil] 200 mg tablet 200 mg PO DAILY Qty: 30 2RF Referrals Follow up/Referrals: Jatinder Clifford MD [Primary Care Provider, Internal Medicine] - See instructions Clinical Impressions Clinical Impression: Cerebrovascular accident Print Language Print Language: Turkmen Discharge ED Provider: Kendra Ayon HPI <Rosalina Ulloa (ED), DIRECTOR OF CASINO - Last Filed: 10/25/24 16:25> General Chief Complaint: Neuro Symptoms/Deficit Stated Complaint: cp Time Seen by Provider: 10/25/24 14:41 History of Present Illness HPI narrative: This is a 69-year-old male who presents to the ED today for complaint of chest pain, diaphoresis, shortness of breath, nausea, weakness on both sides. Patient arrives with a blood pressure of 184/88. And a left-sided facial droop. Patient was trying to explain why he was here and his words were coming out jumbled he was unable to explain why he was here. He was unable to make sense of any speech. Once we noticed the speech and the left-sided facial droop we called a stroke alert. Patient also has some discoordination with his left arm, aphasia and dysarthria. Patient sent to the scanner at that time. His glucose was 94. 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 He was supposed to come back next week for further scans. Dr. Ayon was also brought into the room to assess patient. NIH 6. Related Data Previous Rx's ?Medication ?Instructions ?Recorded rosuvastatin 20 mg tablet (Crestor) 20 mg PO DAILY Cho lesterol 30 days 03/16/23 #30 tabs tamsulosin 0.4 mg capsule See Rx Instructions .Route 0 01/11/24 .COMPLEX #30 caps fluticasone 250 mcg-salmeterol 50 1 inh inhalation BID #60 ea 07/04/24 mcg/dose blistr powdr for inhalation (Advair Diskus) levothyroxine 50 mcg tablet 50 mcg PO DAILY #30 tabs 0 07/08/24 bupropion HCl 300 mg 24 hr tablet, 300 mg PO DAILY anx iety/depression 07/14/24 extended release (Wellbutrin XL) 30 days #30 tabs levothyroxine 200 mcg tablet 200 mcg PO DAILY hypothyr oid #30 09/01/24 (Synthroid) tabs fenofibrate 160 mg tablet 160 mg PO DAILY #30 tabs 12/12 losartan 25 mg tablet (Cozaar) 25 mg PO DAILY HTN #90 tabs 09/24/24 armodafinil 200 mg tablet (Nuvigil) 200 mg PO DAILY na rcolepsy #30 tabs 10/08/24 Allergies Allergy/AdvReac Type Severity Reaction Status Date / Time No Known Allergies Allergy Verified 10/22/24 11:09 [facility] <Rosalina Ulloa (ED), DIRECTOR OF CASINO - Last Filed: 10/25/24 16:25> [facility] Disclaimer: The information contained in this section may have been updated after the patient was seen, as this information can be updated by other users. Medical History (Updated 10/25/24 @ 16:24 by Rosalina Ulloa (MELBA), DIRECTOR OF CASINO) Sleep apnea COPD (chronic obstructive pulmonary disease) History of gastroesophageal reflux (GERD) Intolerance to BiPAP/CPAP Skin cancer Anxiety Crohn disease Hypertension Depression BPH (benign prostatic hyperplasia) Edema Narcolepsy Hyperlipidemia Hypothyroidism Surgical History (Updated 10/23/24 @ 11:04 by Sharla Wise RN) Status post surgical removal of malignant neoplasm of skin Previous back surgery Family History Father Cancer lung Grandmother Coronary artery disease Sister Cancer thyroid Social History (Updated 10/23/24 @ 11:04 by Sharla Wise RN) Smoking Status: Former smoker smoking status stop date: 05/21/2004 alcohol intake: current alcohol intake frequency: 0-2 drinks per day substance use type: denies use current occupational status: retired Travel in the last 8 weeks?: None household members: spouse housing: house marital status: caffeine: Yes do you feel safe at home: Yes victim of physical abuse: No victim of emotional abuse: No victim of sexual abuse: No would you like helpful sources: No Have you lived/traveled outside [place] in past 30 days?: No Contact w/someone who lives/traveled outside US past 30 days?: No Exposure to someone with infectious disease in past 14 days?: No Do you have a fever (greater than 100.4 F or 38 C)?: No Have you tested positive for COVID-19?: No Exposed to someone with COVID-19 in past 14 days?: No Do you have a sore throat?: No Do you have a cough?: No Do you have any weakness?: No Do you have any diarrhea?: No Are you experiencing any unusual bleeding?: No Do you have any muscle aches/pain?: No Do you have any abdominal pain?: No Are you experiencing loss of taste or smell?: No Other Medical History Have you received the Pneumonia Vaccine: Yes <Rosalina Ulloa (ED), DIRECTOR OF CASINO - Last Filed: 10/25/24 16:25> ROS Obtained: Yes Systems reviewed as appropriate & no additional complaints except as documented Constitutional Constitutional: Reports as per HPI Physical Exam <Rosalina Ulloa (ED), DIRECTOR OF CASINO - Last Filed: 10/25/24 16:25> General General appearance: other (Alert to person place and ) Head Head exam: atraumatic and normocephalic Eye Eye exam: Present PERRL and EOMI ENT ENT exam: Present normal oropharynx and mucous membranes moist Neck Neck exam: Present full ROM and trachea midline Respiratory Respiratory exam: Present normal lung sounds bilaterally Cardiovascular Cardiovascular exam: Present bradycardia, normal heart sounds, +S1 and +S2 Abdominal Exam Abdominal exam: Present soft and normal bowel sounds Extremities Exam Extremities exam: Present full ROM and normal capillary refill Neurological Exam Neurological exam: Present oriented X3 Expanded Neurological Exam Patient oriented to: Present person, place and time Speech: Present total aphasia Cranial nerves: Normal: EOM function (II, III, IV, ), facial sensation (V), gag reflex (IX) and spinal accessory function (XI) and Abnormal Left: facial palsy (VII) and tongue deviation (XII) Cerebellar function: Normal: heel to carroll and Abnormal Left: finger to nose Cerebellar function: normal gait Motor strength - LUE: 5/5 Motor strength - RUE: 5/5 Motor strength - LLE: 5/5 Motor strength - RLE: 5/5 Upper motor neuron exam: Normal: abdirizak neglect, pronator drift, Babinski sign and sensory extinction Sensory exam upper extremity: Normal: light touch, pin prick, temperature and 2 point discrimination Sensory exam lower extremity: Normal: light touch, pin prick, temperature and 2 point discrimination Coma scale eye opening: Spontaneous Coma scale motor response: Obeys commands Coma scale verbal response: Oriented Coma scale total: 15 Comment: 6 Skin Skin exam: Present warm, dry and intact <Kendra N Gabo, DO - Last Filed: 10/25/24 15:01> Expanded Neurological Exam Coma scale total: 15 HEART Score <[facility] (ED), DIRECTOR OF CASINO - Last Filed: 10/25/24 16:25> HEART Score HEART Score assessment performed?: Yes History (anamnesis): Moderately suspicious ECG: Non-specific disturbance Age: >65 years Risk factors: 1-2 risk factors Troponin: </= normal limit HEART Score: 5 Critical Care <[facility] (ED), DIRECTOR OF CASINO - Last Filed: 10/25/24 16:25> Critical Care Time Critical Care Time: Yes Attestation: On 10/25/24, the high probability of a clinically significant, sudden or life threatening deterioration of the following system(s) required my full and direct attention, intervention and personal management. The time I documented below is in addition to time spent performing reported procedures but includes the following listed in this critical care notation. Total Time Total Critical Care Time: 30 Medical Decision Making <[facility] (ED), DIRECTOR OF CASINO - Last Filed: 10/25/24 16:25> Medical Records Medical records reviewed: Yes I reviewed the patient's medical records. Jon Inquiry Pt receiving controlled substance: No Jon was queried for this patient: No Vital Signs Vital Signs: 10/25/24 14:45 10/25/24 14:49 10/25/24 15:15 Temperature 98.7 F Temperature Source Oral Pulse Rate 50 L Pulse Rate [Left Radial] 67 Respiratory Rate 16 18 Blood Pressure 168/80 H Blood Pressure [Right Arm] 184/88 H Blood Pressure Mean [Right Arm] 120 02 Sat by Pulse Oximetry 98 99 10/25/24 15:30 10/25/24 16:01 Temperature Temperature Source Pulse Rate 59 L Pulse Rate [Left Radial] Respiratory Rate 22 19 Blood Pressure 178/87 H 190/93 H Blood Pressure [Right Arm] Blood Pressure Mean [Right Arm] 02 Sat by Pulse Oximetry 94 L Lab Data Labs: Lab Results 10/25/24 14:43: WBC 10.6, RBC 5.22, Hgb 15.1, Hct 45.7, MCV 87.5, MCH 28.9, MCHC 33.0, RDW 13.0, Plt Count 220, MPV 10.3, Neut % (Auto) 52.6, Lymph % (Auto) 35.0, Kimble % (Auto) 9.1, Eos % (Auto) 2.4, Baso % (Auto) 0.5, Neut # (Auto) 5.6, Lymph # (Auto) 3.7, Kimble # (Auto) 1.0, Eos # (Auto) 0.3, Baso # (Auto) 0.1, PT 11.4, INR 1.03, APTT 26.9, Sodium 135 L, Potassium 3.9, Chloride 105, Carbon Dioxide 26, Anion Gap 7.9, BUN 10, Creatinine 1.10, Estimated GFR 66, Est GFR ( Amer) 80, Glucose 103 H, Calcium 8.9, Total Bilirubin 1.0, AST 33, ALT 24, Alkaline Phosphatase 78, Troponin I < 0.01, NT-Pro-B Natriuret Pep 486 H, Total Protein 8.0, Albumin 4.4, Globulin 3.6 H, Albumin/Globulin Ratio 1.2, T riglycerides 218 H, Cholesterol 214 H, LDL Cholesterol Direct 122.92, VLDL Cholesterol 44 H, HDL Cholesterol 38 L, Cholesterol/HDL Ratio 5.6 H, Plasma/Serum Alcohol < 10 10/25/24 15:14: Urine Color Yellow, Urine Appearance Clear, Urine pH 8.0, Ur Specific [place] 1.010, Urine Protein Negative, Urine Glucose (UA) Negative, Urine Ketones Negative, Urine Blood Negative, Urine Nitrate Negative, Urine Bilirubin Negative, Urine Urobilinogen 0.2, Ur Leukocyte Esterase Negative, Urine RBC 3-5, Urine WBC Occasional, Urine Opiates Screen Negative, Urine Methadone Screen Negative, Ur Barbituates Screen Negative, Ur Phencyclidine Scrn Negative, Ur Amphetamines Screen Negative, U Benzodiazepines Scrn Negative, Urine Cocaine Screen Negative, U Marijuana (THC) Screen Positive H 10/25/24 16:09: VBG pH 7.45 H, VBG pCO2 37.8, VBG pO2 24.5 L, VBG HCO3 25.8, VBG Total CO2 27.0, VBG O2 Saturation 48.1 L, VBG Base Excess 1.8, VBG Lactic Acid 1.9 10/25/24 14:43 10/25/24 14:43 Response Orders (Tests/Meds): ED MEDICATIONS Generic Name Dose Route Start Last Admin Trade Name Freq PRN Reason Stop Dose Admin Diltiazem HCl 25 mg 10/25/24 15:15 Diltiazem 25mg/5ml Vial IV 10/26/24 15:14 ONCE PRN CTA Coronary procedure Sodium Chloride 1,000 mls @ 999 mls/hr 10/25/24 15:15 Sod Chlor 0.9% 1000ml Bag IV 10/26/24 15:14 .Q1H1M CHAVA Ivabradine 0 mg 10/25/24 15:15 Ivabradine Hcl 7.5mg Tablet PO 10/26/24 15:14 ONCE CHAVA Protocol Metoprolol Tartrate 0 mg 10/25/24 15:15 Metoprolol Tartrate 50mg Tablet PO 10/26/24 15:14 DIRECTED CHAVA Protocol Metoprolol Tartrate 5 mg 10/25/24 15:15 Metoprolol Tartrate 5mg/5ml Vial IV Q5M PRN CTA Coronary Procedure Nitroglycerin 0 mg 10/25/24 15:15 Nitroglycerin 0.4mg Sl Tablet SL 10/26/24 15:14 ONCE PRN CTA procedure Protocol Sodium Chloride 10 ml 10/25/24 14:49 Sodium Chloride 0.9% 10ml Flush Syringe IV 11/24/24 14:48 NEEDED PRN Maintain IV Site Discontinued Medications Generic Name Dose Route Start Last Admin Trade Name Freq PRN Reason Stop Dose Admin Iopamidol 150 ml 10/25/24 14:51 10/25/24 14:54 Iopamidol-370 (76%);100ml Bottle IV 10/25/24 14:52 150 ml ONCE ONE Administration Iopamidol 50 ml 10/25/24 15:15 10/25/24 15:15 Iopamidol-370 (76%);100ml Bottle IV 10/25/24 15:16 50 ml ONCE ONE Administration Ondansetron HCl 4 mg 10/25/24 16:08 10/25/24 16:13 Ondansetron 4mg/2ml Vial IV 10/25/24 16:09 4 mg ONCE ONE Administration Sodium Chloride 50 ml 10/25/24 14:51 10/25/24 14:54 0.9 % Sodium Chloride 50 Ml Vial IV 10/25/24 14:52 50 ml ONCE ONE Administration Sodium Chloride 10 ml 10/25/24 14:51 10/25/24 14:53 Sodium Chloride 0.9% 10ml Syr (Rad Only) IV 10/25/24 14:52 10 ml ONCE ONE Administration Sodium Chloride 50 ml 10/25/24 15:15 10/25/24 15:15 0.9 % Sodium Chloride 50 Ml Vial IV 10/25/24 15:16 50 ml ONCE ONE Administration ORDERS Category Date Time Status CT angio head Stat Cat Scan 10/25/24 14:[address] angio neck Stat Cat Scan 10/25/24 14:[address] head/brain wo con Stat Cat Scan 10/25/24 14:49 Taken CTA Chest [CT angio chest PE protocol] Stat Cat Scan 10/25/24 14:49 Completed POCUS Point of Care (ER Only) Stat Exams 10/25/24 15:26 Ordered Activated Partial Thrombo Time Stat Lab 10/25/24 14:43 Completed Ammonia Stat Lab 10/25/24 14:49 Ordered BNP [NT Pro Brain Natriuretic Pep.] Stat Lab 10/25/24 14:43 Completed Complete Blood Count Auto Diff Stat Lab 10/25/24 14:43 Completed Comprehensive Metabolic Panel Stat Lab 10/25/24 14:43 Completed Drug Screen,Urine Stat Lab 10/25/24 15:14 Completed Ethyl Alcohol Stat Lab 10/25/24 14:43 Completed HIV Combo Stat Lab 10/25/24 14:43 Received Hepatitis C Ab Qual. W/ RFX Stat Lab 10/25/24 14:43 Received Lipid Panel Stat Lab 10/25/24 14:43 Completed Prothrombin Time INR Stat Lab 10/25/24 14:43 Completed Troponin I Q3H Lab 10/25/24 18:00 Ordered Troponin I Q3H Lab 10/25/24 21:00 Ordered Troponin I Stat Lab 10/25/24 14:43 Completed Urinalysis and Microscopic Stat Lab 10/25/24 15:14 Completed VBG [Venous Blood Gas] Stat RT 10/25/24 16:09 Completed MDM Narrative Medical Decision Narrative: patient is a 16-year-old male presenting to the emergency department for evaluation of shortness of breath, nausea, chest pain, diaphoresis, with weakness and dysarthria, aphasia and left sided facial droop. This started at waking up this morning. Patient is hemodynamically stable but having difficulty with speech and coordination with left arm and mild left facial weakness.. Differential diagnosis includes stroke, CAD, VA, NSTEMI among others. Workup will be conducted with hematologic labs, specific imaging including stroke protocol and chest pain workup. Dr. Ayon and I both examined patient. Initial workup reviewed by me and showed elevated BNP. Trope was negative. Other labs have been unremarkable. CT of head was negative for an acute stroke but we were unable to get contrasted studies. I believe this was a timing issue with our machine. We talked to via [employer]. johnathon. Both Dr. Romo and I talked to family who agrees to transfer. Imaging informally interpreted by me and remarkable for nothing acute. However patient continues with left-sided weakness, left arm discoordination and aphasia that is worsening. Patient will be sent to accepted by stroke neurology team via [employer] johnathon <Kendra Ayon, DO - Last Filed: 10/25/24 15:01> Vital Signs Vital Signs: 10/25/24 14:45 10/25/24 14:49 10/25/24 15:15 Temperature 98.7 F Temperature Source Oral Pulse Rate 50 L Pulse Rate [Left Radial] 67 Respiratory Rate 16 18 Blood Pressure 168/80 H Blood Pressure [Right Arm] 184/88 H Blood Pressure Mean [Right Arm] 120 02 Sat by Pulse Oximetry 98 99 10/25/24 15:30 10/25/24 16:01 Temperature Temperature Source Pulse Rate 59 L Pulse Rate [Left Radial] Respiratory Rate 22 19 Blood Pressure 178/87 H 190/93 H Blood Pressure [Right Arm] Blood Pressure Mean [Right Arm] 02 Sat by Pulse Oximetry 94 L Lab Data Labs: Lab Results 10/25/24 14:43: WBC 10.6, RBC 5.22, Hgb 15.1, Hct 45.7, MCV 87.5, MCH 28.9, MCHC 33.0, RDW 13.0, Plt Count 220, MPV 10.3, Neut % (Auto) 52.6, Lymph % (Auto) 35.0, Kimble % (Auto) 9.1, Eos % (Auto) 2.4, Baso % (Auto) 0.5, Neut # (Auto) 5.6, Lymph # (Auto) 3.7, Kimble # (Auto) 1.0, Eos # (Auto) 0.3, Baso # (Auto) 0.1, PT 11.4, INR 1.03, APTT 26.9, Sodium 135 L, Potassium 3.9, Chloride 105, Carbon Dioxide 26, Anion Gap 7.9, BUN 10, Creatinine 1.10, Estimated GFR 66, Est GFR ( Amer) 80, Glucose 103 H, Calcium 8.9, Total Bilirubin 1.0, AST 33, ALT 24, Alkaline Phosphatase 78, Troponin I < 0.01, NT-Pro-B Natriuret Pep 486 H, Total Protein 8.0, Albumin 4.4, Globulin 3.6 H, Albumin/Globulin Ratio 1.2, T riglycerides 218 H, Cholesterol 214 H, LDL Cholesterol Direct 122.92, VLDL Cholesterol 44 H, HDL Cholesterol 38 L, Cholesterol/HDL Ratio 5.6 H, Plasma/Serum Alcohol < 10 10/25/24 15:14: Urine Color Yellow, Urine Appearance Clear, Urine pH 8.0, Ur Specific [place] 1.010, Urine Protein Negative, Urine Glucose (UA) Negative, Urine Ketones Negative, Urine Blood Negative, Urine Nitrate Negative, Urine Bilirubin Negative, Urine Urobilinogen 0.2, Ur Leukocyte Esterase Negative, Urine RBC 3-5, Urine WBC Occasional, Urine Opiates Screen Negative, Urine Methadone Screen Negative, Ur Barbituates Screen Negative, Ur Phencyclidine Scrn Negative, Ur Amphetamines Screen Negative, U Benzodiazepines Scrn Negative, Urine Cocaine Screen Negative, U Marijuana (THC) Screen Positive H 10/25/24 16:09: VBG pH 7.45 H, VBG pCO2 37.8, VBG pO2 24.5 L, VBG HCO3 25.8, VBG Total CO2 27.0, VBG O2 Saturation 48.1 L, VBG Base Excess 1.8, VBG Lactic Acid 1.9 Response Orders (Tests/Meds): ED MEDICATIONS Generic Name Dose Route Start Last Admin Trade Name Jemma PRN Reason Stop Dose Admin Diltiazem HCl 25 mg 10/25/24 15:15 Diltiazem 25mg/5ml Vial IV 10/26/24 15:14 ONCE PRN CTA Coronary procedure Sodium Chloride 1,000 mls @ 999 mls/hr 10/25/24 15:15 Sod Chlor 0.9% 1000ml Bag IV 10/26/24 15:14 .Q1H1M CHAVA Ivabradine 0 mg 10/25/24 15:15 Ivabradine Hcl 7.5mg Tablet PO 10/26/24 15:14 ONCE CHAVA Protocol Metoprolol Tartrate 0 mg 10/25/24 15:15 Metoprolol Tartrate 50mg Tablet PO 10/26/24 15:14 DIRECTED CHAVA Protocol Metoprolol Tartrate 5 mg 10/25/24 15:15 Metoprolol Tartrate 5mg/5ml Vial IV Q5M PRN CTA Coronary Procedure Nitroglycerin 0 mg 10/25/24 15:15 Nitroglycerin 0.4mg Sl Tablet SL 10/26/24 15:14 ONCE PRN CTA procedure Protocol Sodium Chloride 10 ml 10/25/24 14:49 Sodium Chloride 0.9% 10ml Flush Syringe IV 11/24/24 14:48 NEEDED PRN Maintain IV Site Discontinued Medications Generic Name Dose Route Start Last Admin Trade Name Jemma PRN Reason Stop Dose Admin Iopamidol 150 ml 10/25/24 14:51 10/25/24 14:54 Iopamidol-370 (76%);100ml Bottle IV 10/25/24 14:52 150 ml ONCE ONE Administration Iopamidol 50 ml 10/25/24 15:15 10/25/24 15:15 Iopamidol-370 (76%);100ml Bottle IV 10/25/24 15:16 50 ml ONCE ONE Administration Ondansetron HCl 4 mg 10/25/24 16:08 10/25/24 16:13 Ondansetron 4mg/2ml Vial IV 10/25/24 16:09 4 mg ONCE ONE Administration Sodium Chloride 50 ml 10/25/24 14:51 10/25/24 14:54 0.9 % Sodium Chloride 50 Ml Vial IV 10/25/24 14:52 50 ml ONCE ONE Administration Sodium Chloride 10 ml 10/25/24 14:51 10/25/24 14:53 Sodium Chloride 0.9% 10ml Syr (Rad Only) IV 10/25/24 14:52 10 ml ONCE ONE Administration Sodium Chloride 50 ml 10/25/24 15:15 10/25/24 15:15 0.9 % Sodium Chloride 50 Ml Vial IV 10/25/24 15:16 50 ml ONCE ONE Administration ORDERS Category Date Time Status CT angio head Stat Cat Scan 10/25/24 14:[address] angio neck Stat Cat Scan 10/25/24 14:[address] head/brain wo con Stat Cat Scan 10/25/24 14:49 Taken CTA Chest [CT angio chest PE protocol] Stat Cat Scan 10/25/24 14:49 Completed POCUS Point of Care (ER Only) Stat Exams 10/25/24 15:26 Ordered Activated Partial Thrombo Time Stat Lab 10/25/24 14:43 Completed Ammonia Stat Lab 10/25/24 14:49 Ordered BNP [NT Pro Brain Natriuretic Pep.] Stat Lab 10/25/24 14:43 Completed Complete Blood Count Auto Diff Stat Lab 10/25/24 14:43 Completed Comprehensive Metabolic Panel Stat Lab 10/25/24 14:43 Completed Drug Screen,Urine Stat Lab 10/25/24 15:14 Completed Ethyl Alcohol Stat Lab 10/25/24 14:43 Completed HIV Combo Stat Lab 10/25/24 14:43 Received Hepatitis C Ab Qual. W/ RFX Stat Lab 10/25/24 14:43 Received Lipid Panel Stat Lab 10/25/24 14:43 Completed Prothrombin Time INR Stat Lab 10/25/24 14:43 Completed Troponin I Q3H Lab 10/25/24 18:00 Ordered Troponin I Q3H Lab 10/25/24 21:00 Ordered Troponin I Stat Lab 10/25/24 14:43 Completed Urinalysis and Microscopic Stat Lab 10/25/24 15:14 Completed VBG [Venous Blood Gas] Stat RT 10/25/24 16:09 Completed ECG Data Tracing #1: Attestation: I reviewed this ECG and interpreted as documented below: ECG Narrative: Sinus bradycardia with a first-degree AV block with no acute ST changes concerning for STEMI. Normal intervals otherwise. Left axis deviation ECG initial impression date: 10/25/24 ECG initial impression time: 14:40
[2024-10-25] MEDS: SODIUM CHLORIDE 0.9% 10ML SYR (RAD ONLY) 10 ML IV (14:53)
[2024-10-25] MEDS: IOPAMIDOL-370 (76%);100ML BOTTLE 150 ML IV (14:54)
[2024-10-25] MEDS: 0.9 % SODIUM CHLORIDE 50 ML VIAL IV ×2 (14:54→15:15)
[2024-10-25 14:59] LABS: Basophils # 0.1 K/mm3 (0-0.2); Basophils % 0.5 % (0.1-2.0); Eosinophils # 0.3 Kmm3 (0.0-0.4); Eosinophils % 2.4 % (0.1-12.0); Hematocrit 45.7 % (42.0-52.0); Hemoglobin 15.1 g/dL (14.1-18.0); Immature Granulocytes # 0.04 10^3uL; Immature Granulocytes % 0.4 %; Lymphocytes # 3.7 K/mm3 (0.7-4.5); Mean Corpuscular Hemoglobin 28.9 pg (27.0-31.2); Mean Corpuscular Volume 87.5 fl (80-94); Mean Platelet Volume 10.3 fl (7.4-10.4); Monocytes % 9.1 % (1.7-9.3); Neutrophils # 5.6 K/mm3 (1.8-7.8); Neutrophils % 52.6 % (37.0-80.0); Nucleated Red Blood Cells # 0 10^3/uL; Nucleated Red Blood Cells % 0 %; Platelet Count 220 K/mm3 (142-424); Red Blood Count 5.22 M/mm3 (4.60-6.20); Red Cell Distribution Width-SD 41.7 fL; White Blood Count 10.6 K/mm3 (4.8-10.8)
[2024-10-25 15:06] LABS: Activated Partial Thrombo Time 26.9 seconds (22.8-30.6); INR 1.03 (0.9-1.1); Prothrombin Time 11.4 seconds (10.1-12.5)
[2024-10-25 15:12] LABS: Alanine Aminotransferase 24 U/L (12-78); Albumin Level 4.4 g/dl (3.5-5.0); Albumin/Globulin Ratio 1.2 (1.1-1.8); Alkaline Phosphatase 78 U/L (38-126); Anion Gap 7.9 mEq/L (5-15); Aspartate Amino Transferase 33 U/L (17-59); Blood Urea Nitrogen 10 mg/dl (9-20); Calcium 8.9 mg/dl (8.4-10.2); Carbon Dioxide 26 mmol/L (22.0-30.0); Chloride 105 mmol/L (98-107); Chol/HDL Ratio 5.6 (1-3.5); Cholesterol 214 mg/dl (140-200); Estimated Glomerular Filt Rate 66 ml/min (>60); GFR (African American) 80 ML/MIN (>60); Globulin 3.6 g/dL (1.3-3.2); Glucose 103 mg/dl (74-100); HDL Cholesterol 38 mg/dl (40-60); Potassium 3.9 mmoL/L (3.5-5.1); Sodium 135 mmol/L (136-145); Triglycerides 218 mg/dl (30-150); VLDL Cholesterol 44 mg/dL (0-40)
[2024-10-25 15:14] LABS: Ethyl Alcohol < 10 mg/dl (0-10)
[2024-10-25 15:15] VITALS: BP 168/80; PULSE 50; O2SAT 99
[2024-10-25] MEDS: IOPAMIDOL-370 (76%);100ML BOTTLE 50 ML IV (15:15)
[2024-10-25 15:20] LABS: Microscopic, Urine URINE MICROSCOPIC (MICROSCOPIC)
[2024-10-25 15:22] LABS: Appearance,Urine CLEAR (Clear); Bilirubin,Urine Negative (Negative); Blood, Urine Negative (Negative); Color,Urine YELLOW (Yellow); Glucose,Urine (UA) Negative (Negative); Ketones,Urine Negative (Negative); Leukocyte Esterase,Urine Negative (Negative); Nitrate,Urine Negative (Negative); Protein,Urine Negative (Negative); Urobilinogen,Urine 0.2 EU/dl (0.2)
[2024-10-25 15:22] LABS: NT Pro Brain Natriuretic Pep. 486 pg/mL (0-125)
[2024-10-25 15:23] LABS: Direct LDL Cholesterol 122.92 mg/dL (100-129)
[2024-10-25 15:26] LABS: Troponin I < 0.01 ng/ml (0.00-0.034)
[2024-10-25 15:30] VITALS: BP 178/87; PULSE 59; RESP 22; O2SAT 94
[2024-10-25 15:40] LABS: WBC,Urine Occasional #/hpf (0-3)
[2024-10-25 15:41] LABS: Barbiturates Screen,Urine Negative ng/ml (<200)
[2024-10-25 15:42] LABS: Benzodiazepines Screen,Urine Negative ng/ml (<200)
[2024-10-25 15:43] LABS: Amphetamine/Metha Screen,Urine Negative ng/ml (<1000); Cannabinoid Screen,Urine Positive ng/ml (<50)
[2024-10-25 15:44] LABS: Cocaine Screen,Urine Negative ng/ml (<300)
[2024-10-25 15:45] LABS: Methadone Screen,Urine Negative ng/ml (<300); Opiate Screen,Urine Negative ng/ml (<300)
[2024-10-25 15:46] LABS: Phencyclidine Screen,Urine Negative ng/ml (<25)
[2024-10-25 16:01] VITALS: BP 190/93; RESP 19
--- NOTE | 2024-10-25 16:04 | INFXCTL.NOTE ---
notified RT of VBG collected and sent to lab.
--- NOTE | 2024-10-25 16:07 | PC.NURSE ---
output 825 urine
[2024-10-25 16:10] LABS: Lactate Venous 1.9 mmol/L (0.4-2.0); VBG Base Excess 1.8 mmol/L (-2.4-2.3); VBG HCO3 25.8 mmol/L (23-30); VBG Oxygen Saturation 48.1 % (50-70); VBG PCO2 37.8 mmol/L (35-51); VBG PH 7.45 mmol/L (7.31-7.41); VBG PO2 24.5 mmol/L (28-40)
[2024-10-25] MEDS: ONDANSETRON 4MG/2ML VIAL 4 MG IV (16:13)
--- NOTE | 2024-10-25 16:18 | PC.NURSE ---
accepted at this time.
--- NOTE | 2024-10-25 16:18 | PC.NURSE ---
talked to Nick at [facility] about transfer.
--- NOTE | 2024-10-25 16:23 | INFXCTL.NOTE ---
spoke with [facility] about pt transfer. Possible [place] [facility] acceptance with 38 minute ETA. Will call back with conformation.
--- NOTE | 2024-10-25 16:35 | PC.NURSE ---
report called to sisi at [facility]
[2024-10-25 16:48] VITALS: BP 190/93; PULSE 60; RESP 19; TEMP 37.1; O2SAT 95
[2024-10-25 17:11] LABS: HIV Combo NEGATIVE (Negative)
[2024-10-25 17:20] LABS: Hepatitis C Ab Qual. W/ RFX NEGATIVE (Negative)
== END 2024-10-25 16:49 | disposition other institution (70) ==
PROVIDERS: Nurse Practitioner; Emergency Provider Emergency Medicine; PCP Family Medicine
DX: I63.9 Cerebral infarction, unspecified (principal); R29.706 NIHSS score 6; R00.0 Tachycardia, unspecified; I44.0 Atrioventricular block, first degree; R07.89 Other chest pain; I10 Essential (primary) hypertension; E78.5 Hyperlipidemia, unspecified; J44.9 Chronic obstructive pulmonary disease, unspecified; Z87.891 Personal history of nicotine dependence; Z11.59 Encounter for screening for other viral diseases; Z11.4 Encounter for screening for human immunodeficiency virus [HIV]
CPT/HCPCS: 70450; 70496; 70498; 71275; 80053; 80061; 80074; 80307; 80320; 81001; 82803; 83880; 84484; 85025; 85610; 85730; 87389; 93005; 96374; 99291; J2405; Q9967

== ENCOUNTER 2024-11-04 11:25 | Outpatient (CLI) | payer MEDICARE, SELFPAY ==
--- OUTSIDE RECORDS SUMMARY | 2024-10-25 17:36 | XMS_ITS | Encounter Summary ---
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 Name Role Phone Pcp, No Primary Care Provider Unavailabl e Reason for Referral * Consultation (Routine) - Authorized Specialty Diagnoses / Procedures Referred By Lito sibley Referred To Contact Cardiology Diagnoses Liliane Lazo MD [address] [place] [phone] Phone: tel: fax: Referral ID Status Reason Start Date Expiration Date Visits Requested Visits Authorized [id number] Authorized Specialty Services Required 10/27/2024 04/28/2026 1 1 Scheduling Instructions Patch monitor * Consultation (Routine) - Authorized Specialty Diagnoses / Procedures Referred By Lito sibley Referred To Contact Neurology Diagnoses Liliane Lazo MD [address] [place] [phone] Phone: tel: fax: Referral ID Status Reason Start Date Expiration Date Visits Requested Visits Authorized [id number] Authorized Specialty Services Required 10/27/2024 04/28/2026 1 1 Scheduling Instructions Follow up with stroke clinic in 8-14 weeks * Consultation (Routine) - Closed Specialty Diagnoses / Procedures Referred By Lito sibley Referred To Contact Neurology Diagnoses Liliane Lazo MD [address] [place] [phone] Phone: tel: fax: Referral ID Status Reason Start Date Expiration Date V isits Requested Visits Authorized [id number] Closed Specialty Services Required 10/27/2024 04/28/2026 1 1 Scheduling Instructions Follow up in Transitions of Care clinic in 3-14 days Reason for Visit * Reason Comments Stroke Alert * Auth/Cert (Routine) Specialty Diagnoses / Procedures Referred By Contac t Referred To Contact Diagnoses Aphasia Cerebrovascular accident (CVA), unspecified mechanism (CMS/HCC) Stroke, possible thrombectomy Deidre Brown MD [address] [phone] Phone: tel: fax: [facility] [address] [place] [address] Phone: tel: Referral ID Status Reason Start Date Expiration Date Visits Re quested Visits Authorized [id number] 1 1 Encounter Details Date Type Department Care Team (Late st Contact Info) Description 10/25/2024 5:36 PM EDT - 10/27/2024 5:21 PM EDT Hospital Encounter [facility] [address] [place] [address] Scott Rankin MD [address] [place] [address] Deidre Brown MD [address] [phone] Liliane Higgins MD [address] [phone] Cerebrovascular accident (CVA), unspecified mechanism (CMS/HCC) (Primary Dx); Aphasia Discharge Disposition: Home or Self Care Social History Tobacco Use Types Packs/Day Years Used Date Smoking Tobacco: Former Cigarettes Tobacco Cessation:Counseling Given: Not Answered Alcohol Use Standard Drinks/Week Comments Not Currently 0 (1 standard drink = 0.6 oz pur e alcohol) PHQ-2 Answer Date Recorded Patient Health Questionnaire-2 Score 1 10/31/2024 PHQ-9 Answer Date Recorded Patient Health Questionnaire-9 Score 1 10/31/2024 Humiliation, Afraid, Rape, a nd Kick questionnaire Answer Date Recorded Within the last year, have y ou been afraid of your partner or ex-partner? Patient unable to answer 10/28/2024 Within the last year, have y ou been humiliated or emotionally abused in other ways by your partner or ex-partner? Patient unable to answer 10/28/2024 Within the last year, have y ou been kicked, hit, slapped, or otherwise physically hurt by your partner or ex-partner? Patient unable to answer 10/28/2024 Within the last year, have y ou been raped or forced to have any kind of sexual activity by your partner or ex-partner? Patient unable to answer 10/28/2024 Hunger Vital Sign Answer Date Recorded Within the past 12 months, y ou worried that your food would run out before you got the money to buy more. Never true 10/29/19 25 Within the past 12 months, t he food you bought just didn't last and you didn't have money to get more. Never true 10/28/2024 PRAPARE - Transportation Answer Date Re corded In the past 12 months, has l ack of transportation kept you from medical appointments or from getting medications? No 10/19 In the past 12 months, has l ack of transportation kept you from meetings, work, or from getting things needed for daily living? No 10/28/2024 Housing Stability Vital Sign Answer Noah e Recorded In the last 12 months, was t here a time when you were not able to pay the mortgage or rent on time? No 10/28/2024 In the past 12 months, how m any times have you moved where you were living? 0 10/28/2024 At any time in the past 12 m [facility], were you homeless or living in a long term (including now)? No 10/28/2024 Utilities Answer Date Recorded In the past 12 months has th e [employer] gas, oil, or water [employer] threatened to shut off services in your home? No 10/28/2024 Sex and Gender Information Value Date Recorded Sex Assigned at Not on file Legal Sex Male 4:15 PM EDT Gender Identity Not on file Sexual Orientation Not on file documented as of this encounter Last Filed Vital Signs Vital Sign Reading Time Taken Comments Blood Pressure 178/77 10/27/2024 12:14 PM EDT Pulse 55 10/27/2024 12:14 PM EDT Temperature 36.9 C (98.4 F) 10/27/2024 12:00 PM EDT Respiratory Rate 12 10/27/2024 12:14 PM EDT Oxygen Saturation 90% 10/27/2024 12:14 PM EDT Inhaled Oxygen Concentration - - Weight 121 kg (266 lb 1.5 oz) 10/26/2024 12:00 P M EDT Height 182.9 cm (6') 10/26/2024 12:00 PM EDT Body Mass Index 36.09 10/26/2024 12:00 PM EDT documented in this encounter Functional Status * Over the past 2 weeks, how often have you been bothered by any of the following problems? Question Answer Date of Assessment Author Little interest or pleasure in doing things Not at all 10/31/2024 3:42 PM EDT Antonio Zaragoza Feeling down, depressed, or hopeless Several days 10/31/2024 3:42 PM EDT Antonio Zaragoza Patient Health Questionnaire -2 Score 1 10/31/2024 3:42 PM EDT Antonio Zaragoza * Question Answer Date of Assessment Author Trouble falling or staying a sleep, or sleeping too much Not at all 10/31/2024 3:42 PM EDT Antonio Zaragoza Feeling tired or having little energy Not at all 3:42 PM EDT Antonio Zaragoza Poor appetite or overeating Not at all 10/31/2024 3: 42 PM EDT Antonio Zaragoza Feeling bad about yourself - or that you are a failure or have let yourself or your family down Not at all 10/31/2024 3:42 PM EDT Philip Zaragoza Trouble concentrating on thi ngs, such as reading the newspaper or watching television Not at all 10/31/2024 3:42 PM EDT Antonio Zaragoza Moving or speaking so slowly that other people could have noticed? Or the opposite - being so fidgety or restless that you have been moving around a lot more than usual. Not at all 10/31/2024 3:42 PM EDT Tuan Zaragoza Thoughts that you would be b veronica off or hurting yourself in some way Not at all 10/31/2024 3:42 PM EDT Antonio Zaragoza Patient Health Questionnaire-9 Score 1 10/19 3:42 PM EDT Antonio Zaragoza * Calculated C-SSRS Risk Score (Lifetime/Recent) Answer Date of Assessment Author No Risk Indicated 10/27/2024 8:00 AM Renu Means RN * If you checked off any problems on this questionnaire so far, Question Answer Date of Assessment Author How difficult have these problems made it for you to do your work, take care of things at home, or get along with other people? Not difficult at all 10/31/2024 3:42 PM EDT Antonio Zaragoza * How difficult have these problems made it for you to do your work, take care of things at home, or get along with other people? Answer Date of Assessment Author Not difficult at all 10/31/2024 3:42 PM Antonio Murillo * Question Answer Date of Assessment Author 1. Wish to be (Past 1 Month) No 10/27/2024 8:00 AM Renu Means RN 2. Non-Specific Active Suici isabel Thoughts (Past 1 Month) No 10/27/2024 8:00 AM Deloris Means RN 6. Suicidal Behavior (Lifetime) No 8:00 AM Renu Means RN documented as of this encounter Medications at Time of Discharge armodafinil (Nuvigil) 200 MG tablet Take 1 tablet by mouth daily. aspirin 81 MG chewable tablet Chew 1 tablet daily. 90 tablet 10/28/2024 buPROPion XL (Wellbutrin XL) 300 MG 24 hr tablet Take 1 tablet by mouth daily. Do not crush, chew, or split. clopidogrel (Plavix) 75 MG tablet Take 1 tablet by mouth daily for 21 days. 21 tablet 10/27/2024 fenofibrate (Triglide) 160 MG tablet Take 1 tablet by mouth daily. fluticasone-salm eterol (Advair Diskus) 250-50 MCG/ACT diskus inhaler Inhale 1 puff 2 times a day. Rinse mouth with water after use to reduce aftertaste and incidence of candidiasis. Do not swallow. levothyroxine (Synthroid, Levoxyl) 200 MCG tablet Take 1 tablet by mouth daily. levothyroxine (Synthroid, Levoxyl) 50 MCG tablet Take 1 tablet by mouth daily. losartan (Cozaar) 25 MG tablet Take 1 tablet by mouth daily. rosuvastatin (Crestor) 20 MG tablet Take 1 tablet by mouth daily. 30 tablet 10/27/2024 documented as of this encounter Miscellaneous Notes * Query Clarification Note - Deidre Brown MD - 10/27/2024 5:21 PM EDT Physician Clarification Please review the following and provide your response below. Please review and clarify the clinical significance of the findings with the associated diagnosis: [x]Hyponatremia [x]Hypokalemia []Other (please specify) []Labs without clinical significance This documentation will become part of the patient's medical record. * Progress Notes - Shine Alberts RN - 10/27/2024 5:21 PM EDT Case Management Discharge Note Edwin Cook 69 y.o. 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 Follow-up: Romel Romo MD [address] [facility] [phone] Pcp, Nae [address] [facility] [address] Discharge Transportation: Follow Up Transport: Additional Comments: Unable to complete IA prior to dc. Shine Alberts RN * Nursing Note - Linh Meek RN - 10/27/2024 4:04 PM EDT Patient EMV of 15 and Ivs removed. Patient given discharge education, new medication education, andfollow up appointment information. Patient being transported home by . * Viri On[facility] - Linh Meek RN - 10/27/2024 3:34 PM EDT Images from the original note were not included. [id number] What Is Ischemic Stroke? The brain needs a constant supply of blood to work. During a stroke, blood stops flowing to part ofthe brain. The affected area is damaged. Its functions are harmed or even lost. Most strokes are caused by a blockage in a blood vessel that supplies the brain. They can also occur if a blood vessel in the brain ruptures (bursts open). From the heart to the brain The heart is a pump. It sends oxygen-rich blood out through blood vessels called arteries. If an artery between the heart and the brain is blocked, parts of the brain may not get the nutrients they need (oxygen and glucose) to work properly. Some artery blockages are caused by fatty deposits from cholesterol (plaque). Arteries can also be blocked by blood clots. Sometimes clots form on the plaque. Others can form in the heart--especially in people with atrial fibrillation, an irregular heart rhythm. If a piece of plaque or clot breaks off and enters the bloodstream, it can flow into the brainarteries and cause a stroke. How a stroke occurs Ischemic stroke occurs when an artery that supplies the brain is greatly narrowed or blocked. This can be caused by a buildup of plaque. It can also occur when small pieces of plaque or blood clot (called emboli) break off from the blood vessel or heart into the bloodstream. The emboli flow in the blood until they get stuck in a small blood vessel in the brain. Healthy Arteries Damaged Arteries Healthy arteries. In a healthy artery, the lining of the artery wall is smooth. This lets blood flow freely from the heart to the rest of the body. The brain gets all the blood it needs to function well. Damaged arteries. High blood pressure, cigarette smoking, or other problems can roughen artery baires. This allows plaque to build up in the baires. Blood clots may also form on the plaque. This can narrow the artery and limit blood flow. Know the symptoms of a stroke ? Weakness. You may feel a sudden weakness, tingling, or a loss of feeling on one side of your faceor body including your face, arm or leg. ? Vision problems. You may have sudden double vision or trouble seeing in one or both eyes. ? Speech problems. You may have sudden trouble talking, slurred speech, or problems understanding others. ? Movement problems. You may have sudden trouble walking, dizziness, a feeling of spinning, a loss of balance, a feeling of falling, or blackouts. Remember: If you have any of these symptoms, call 911 and your doctor as soon as possible. BE FAST -- be sure to know these signs of a stroke: B alance ? Does the person have a sudden loss of balance or coordination? E yes ? Does the person have sudden trouble seeing or blurred vision in one or both eyes? F maryellen ? Does one side of the face droop? ? Ask the person to smile. Does their smile seem normal? A christie ? Is one arm weak or numb? ? Ask the person to raise both arms. Does one arm drift downward? S peech ? Is speech slurred or garbled? ? Ask the person to repeat an easy sentence. T quinton ? If the person shows any of these signs, call 911 right away! This is an emergency! Call [address] yourself to the hospital! Last Reviewed Date: 2016 00:00:00 ?? [id number] [employer]. All rights reserved. This information is not intended as a substitute for professional medical care. Always follow your healthcare professional's instructions. This information has been modified by your health care provider with permission from the publisher. * Viri More - Linh Meek RN - 10/27/2024 3:34 PM EDT Images from the original note were not included. [id number] Stroke: Taking Medicines Your healthcare provider has given you medicines to reduce the risk of a stroke. For them to be most effective, take them as prescribed. This sheet explains why and how to take your medicines. How your medicines help you ? They make you feel better so you can do more things you enjoy. ? They keep your blood from clotting, which helps to prevent stroke. Types of medicines Many types of medicines can help prevent stroke. You may be prescribed 1 or more of these: ? Blood-thinner (anticoagulant) medicines help prevent blood clots from forming. If you take a blood thinner, you may need regular blood tests. ? Antiplatelets such as aspirin or clopidogrel are prescribed for many people who have had a stroke. They make blood clots less likely to form. Aspirin is available over the counter. ? Blood pressure medicines help lower high blood pressure. You may need to take more than 1 blood pressure medicine. ? Cholesterol-lowering medicines make plaque less likely to build up in your artery baires, which can decrease the risk for stroke. ? Heart medicines can treat certain heart problems that increase your risk for stroke. ? Diabetes medicines adjust blood sugar levels. This can prevent problems that lead to stroke. Know which medicines you take To help keep my blood from clotting, I take: To keep my blood pressure lower so it?s easier for my heart to pump, I take: Tips for taking medicines Below are tips for taking medicine. Keep in mind that most medicines need to be taken every day. This means even when you feel fine. Ask your provider if you need to stay away from certain foods or alcohol. Also tell your provider if you have problems affording medicine. ? Have a routine. Take medicine at the same time each day. Use reminders to help stay on track. Some people find using a pill box to organize medicines helpful for this. ? Take all your medicines. Some work best when used with others. Don?t take 1 type and skip another. ? Plan ahead. Refill prescriptions before they run out. Be sure to take medicines along if you travel. ? Never change your dosage or stop taking medicine on your own. And if you miss a pill, don?t take 2 the next time. ? Tell your provider if any medicines cause side effects. Your provider may change your dose or prescribe a new medicine. ? Carry a list of your medicines. Bring the list to appointments with your providers. Be sure to refill prescriptions before they run out. For family and friends Medicines can play a jauregui role in preventing stroke. This is especially true for people who have already had a stroke or transient ischemic attack (TIA). To provide support: ? Make sure your loved one knows how the medicines work and when to take them. Check often to make sure they?re taken as directed. ? Know if any medicine reacts with certain foods or alcohol. ? Watch for side effects. Call the provider if any medicine causes excess bruising, nosebleeds, dizziness, or blurred vision. When to call your healthcare provider Contact your provider right away if you: ? Have side effects, such as dizziness, nausea, muscle cramps, headache, coughing, swelling, or a skin rash. ? Are gaining weight. ? Miss a dose of any of your medicines for a prolonged length of time. Last Reviewed Date: 2023 00:00:00 ?? [id number] [employer]. All rights reserved. This information is not intended as a substitute for professional medical care. Always follow your healthcare professional's instructions. * Brad Powell MBBS - 10/27/2024 2:59 PM EDT Images from the original note were not included. [id number] What Is a TIA? A TIA (transient ischemic attack) is a temporary blockage of blood flow to the brain and an early warning that a stroke may be coming. A TIA is sometimes called a mini stroke and usually causes no lasting damage. But the effects of a stroke, if it happens, can be very serious and lasting. If you think you are having symptoms of a TIA or stroke call 911 to get medical help right away. Symptoms of TIA and stroke Symptoms may come on suddenly and last for a few seconds or a few hours. You may have symptoms onlyonce. Or they may come and go for days. If you notice any of the following symptoms, don?t wait. Call 911 or emergency services right away. ? Weakness, numbness, tingling, or loss of feeling in your face, arm, or leg ? Trouble seeing in one or both eyes; double vision ? Slurred speech, trouble talking, or problems understanding others when they speak ? Sudden, severe headache ? Dizziness or a feeling of spinning ? Loss of balance or falling ? Blackouts B.E. F.A.S.T. is an easy way to remember the signs of a stroke. When you see the signs, you will know what you need to call 911 fast. B.E. F.A.S.T. stands for: ? B is for balance. Sudden loss of balance or coordination. ? E is for eyes. Vision changes in one or both eyes. ? F is for face drooping. One side of the face is drooping or numb. When the person smiles, the smile is uneven. ? A is for arm weakness. One arm is weak or numb. When the person lifts both arms and the same time, one arm may drift downward. ? S is for speech difficulty. You may notice slurred speech or trouble speaking. The person can't repeat a simple sentence correctly when asked. ? T is for time to call 911. If someone shows any of these symptoms, even if they go away, call 911right away. Make note of the time the symptoms first appeared. Last Reviewed Date: 2023 00:00:00 ?? [id number] [employer]. All rights reserved. This information is not intended as a substitute for professional medical care. Always follow your healthcare professional's instructions. * [facility]i On[facility] - Brad Roman MBBS - 10/27/2024 2:59 PM EDT Images from the original note were not included. [id number] Transient Ischemic Attack (TIA) Your symptoms were caused by a TIA, or mini-stroke. Even though your symptoms have gone away, this condition is as serious as a full stroke. It is a warning signal that means once you have had a TIA you are at a higher risk of having a full stroke. The risk of a stroke after a TIA is highest withinthe first 24 to 48 hours. A TIA is caused when something decreases or blocks blood flow to a part of your brain. A TIA often happens when a blood clot travels to a blood vessel in the brain. The clot reduces or blocks blood flow causing the symptoms you have experienced. After a short while, the clot dissolves. Blood flows again, and the symptoms go away. People with hardening of the arteries (atherosclerosis) or an irregular heartbeat called atrial fibrillation are at higher risk for a TIA. A TIA causes symptoms similar to a stroke, but they last less than 24 hours. A full stroke causes symptoms that last more than 24 hours and may be permanent. But even if your symptoms only lasted a short time, the TIA may have damaged your brain tissue. You will need tests to look at the blood flowto your brain. The tests can also rule out other causes of your symptoms. The tests may include an ultrasound of the arteries in your neck and an evaluation of your heart. They may also include a CT scan of your brain, an MRI scan of your brain, or both. If your healthcare provider finds problems, they will recommend treatment with medicines, procedures, or both. Your provider may prescribe medicines to reduce your chance of having another TIA and stroke. Thesemay include medicines that prevent blood clots, such as antiplatelet medicines and blood thinners (anticoagulants). Your healthcare provider may recommend other treatments. This may include a procedure to open up a blocked artery in your neck or a procedure to prevent blood clots from forming in the heart. Home care These guidelines will help you take care of yourself at home: ? Take any medicines your healthcare provider has prescribed as directed. These may include antiplatelet medicines or medicines for other conditions, such as high blood pressure or high cholesterol. ? A TIA is a serious event that puts you at risk of having a full stroke. Because of this, it's important to take steps to help prevent a stroke from happening. Your provider will look at all of yourrisk factors when deciding on what other treatment you may need. Ways to reduce your risk for stroke High blood pressure, diabetes, high cholesterol, heavy drinking, and smoking are risk factors for stroke and heart disease. You can control these by taking medicines and making diet and lifestyle changes. One way to help prevent a stroke is to take aspirin or a similar medicine every day. However, you should not take daily aspirin unless your healthcare provider tells you to. Your provider will work with you to make lifestyle changes to help prevent a stroke. Diet Your healthcare provider will give you information about changes you may need to make to your diet.You may need to see a registered dietitian for help with diet changes. Changes may include: ? Eating less fat and cholesterol ? Eating less salt (sodium). This is especially important if you have high blood pressure. ? Eating more fresh fruits and vegetables ? Eating lean proteins, such as fish, poultry, beans, and peas ? Eating less red meat and processed meats ? Using low-fat dairy products ? Using vegetable and nut oils in limited amounts ? Limiting how many sweets and processed foods, such as chips, cookies, and baked goods you eat ? Limiting how much alcohol you drink Physical activity Your healthcare provider may recommend that you get more exercise if you have not been as active aspossible. They may suggest that you get 40 minutes of moderate to vigorous physical activity each day. You should do this at least 3 to 4 days a week. A few examples of moderate to vigorous exercise are: ? Walking at a brisk pace, about 3 to 4 miles per hour ? Jogging or running ? Swimming or water aerobics ? Hiking ? Dancing ? Martial arts ? Tennis ? Riding a bike Other ways to reduce your risk ? Weight management. If you are overweight or obese, your healthcare provider will work with you tolose weight and lower your body mass index (BMI) to a normal or near-normal level. Making diet changes and increasing physical activity can help. ? Smoking. If you smoke, break the habit. Enroll in a stop smoking program to improve your chances of success. ? Stress. Learn how to manage your stress. If necessary, work with a mental health professional whocan help you develop coping strategies that can help you deal with stress at home and at work. Follow-up care Call your healthcare provider for an appointment in the next few days for another evaluation, or asadvised. This is to make a plan for preventing another TIA or stroke. You may need to see a neurologist to follow up on your TIA. A neurologist is a healthcare provider who specializes in treating brain and nervous system problems. You may need other tests or procedures. If you had an X-ray, CT scan, MRI scan, or ECG (electrocardiogram), a specialist will review it. You?ll be told of any new findings that will affect your care. Call 911 Call 911 if any of these occur: ? Any of your TIA symptoms return ? New problems with speech, vision, walking, or weakness or numbness of the face or on 1 side of the body ? Severe headache, fainting spell, dizziness, or seizure Use B.E. F.A.S.T. to help you remember the symptoms of a stroke: ? B for balance. Sudden loss of balance or coordination. ? E for eyes. Vision changes in 1 or both eyes. ? F for face drooping. Drooping or numbness on 1 side of face. This may be more noticeable when youask the affected person to smile. ? A for arm weakness or numbness. The affected person may have trouble using or lifting 1 side. ? S for speech difficulty. Speech may be slurred or hard to understand. The affected person may also use the wrong words. ? T for time to call 911. Time is critical in treating a stroke. Call 911 as soon as you suspect a stroke has happened--even a small one. The sooner treatment is started the better, even if the symptoms go away. Last Reviewed Date: 2024 00:00:00 ?? [id number] [employer]. All rights reserved. This information is not intended as a substitute for professional medical care. Always follow your healthcare professional's instructions. * Viri AllisonLUISITO - Brad Roman MBBS - 10/27/2024 2:59 PM EDT Images from the original note were not included. [id number] Discharge Instructions for Transient Ischemic Attack (TIA) You have been diagnosed with a transient ischemic attack (TIA). A TIA is also known as a mini-stroke. This happens when blood could not reach part of your brain for a short period of time. Unlike a stroke, a TIA does not usually cause lasting damage. If you think you are having symptoms of a TIA orstroke, get medical help right away. Do this even if your symptoms go away. Prevention ? Take your medicines exactly as directed. Don?t skip doses. ? Learn to take your blood pressure. Write down the numbers and tell your doctor. ? Learn your cholesterol level. Follow your doctor?s advice about how to keep cholesterol under control. Make these lifestyle changes: ? Quit smoking. Join a stop-smoking program to improve your chances of success. Ask your doctor about medicines or other methods to help you quit. ? Limit your alcohol. Don't have more than 2 drinks a day if you're a man and no more than 1 drink a day if you're a woman. ? Keep a healthy weight. Get help to lose any extra pounds. If you are overweight, your doctor willwork with you to lose weight and lower your body mass index (BMI) to a normal or near-normal level.Making diet changes and increasing physical activity can help. ? Start an exercise program. Ask your doctor how to get started and how much activity you should try to get on a daily or weekly basis. You can benefit from simple activities, such as walking or gardening. ? Learn ways to manage your stress. There are many methods to manage stress. They can help you dealwith stress in your home and work life. You may also need to change what you eat. Your doctor may refer you to a registered dietitian for help with diet changes. These changes may include: ? Eating less fat and cholesterol. ? Having less salt (sodium), especially if you have high blood pressure. ? Eating more fresh vegetables and fruits. ? Eating lean proteins, such as fish, poultry, and legumes (beans and peas). ? Eating less red meat and processed meats. ? Choosing low-fat dairy products. ? Using vegetable and nut oils in small amounts. ? Limiting sweet and processed foods, such as chips, cookies, and baked goods. To cut back on sodium: ? Limit the amount of canned, dried, packaged, and fast foods you eat. ? Don?t add salt to your food. ? Season foods with herbs instead of salt when you cook. Follow-up care If you are taking certain medicines, you may need blood tests to check for progress or problems. Have blood tests as often as prescribed by your doctor. Call 911 Call 911 right away if: ? You have weakness, tingling, or loss of feeling on 1 side of your face or body. ? You have sudden double vision, or trouble seeing in 1 or both eyes. ? You have sudden trouble talking, or slurring your speech. ? You have trouble understanding other people speaking. ? You have sudden, severe headache. ? You have dizziness, loss of balance, a spinning feeling, or a sense of falling. ? You have blackouts. ? You have seizures. B.E. F.A.S.T. is an easy way to remember the signs of stroke. When you see these signs, you know that you need to call 911 fast. B.E. F.A.S.T. stands for: ? B is for balance. Sudden loss of balance or coordination. ? E is for eyes. Vision changes in 1 or both eyes. ? F is for face drooping. One side of the face is drooping or numb. When the person smiles, the smile is uneven. ? A is for arm weakness. One arm is weak or numb. When the person lifts both arms at the same time,1 arm may drift downward. ? S is for speech difficulty. You may notice slurred speech or trouble speaking. The person can't repeat a simple sentence correctly when asked. ? T is for time to call 911. If someone shows any of these symptoms, even if they go away, call 911right away. Make note of the time the symptoms first appeared. Last Reviewed Date: 2024 00:00:00 ?? [id number] [employer]. All rights reserved. This information is not intended as a substitute for professional medical care. Always follow your healthcare professional's instructions. * Discharge Summary - Brad Roman MBBS - 10/27/2024 2:57 PM EDT Images from the original note were not included. Hospitalization Admit Date/Time: 10/25/2024 5:36 PM Admitting Attending: Deidre Brown Discharge Date: 10/27/2024 Discharge Attending Physician: LILIANE HIGGINS PCP name and Address: Pcp, Nae [address] [address] Referring provider name and address: Romel Romo MD [address] [place] [address] Chief Concern, Brief History of Present Illness, and Hospital Course Edwin Cook is a 69 y.o. male with PMH of hyperlipidemia, GERD, JUAN DIEGO, new diagnosis of esophagealmass, hypothyroidism, tobacco use disorder, obesity presenting with speech difficulty. LKN was 58723/6. He was found to have R MCA inferior division ischemic stroke with Right M1 MCA critical stenosis and left P2 occlusion. For patients dischargin home put your senior resident name here: Jose Rodgers #TIA #Transient Aphasia #Ischemic stroke(chronic), POA The patient presented with initial deficits of Aphasia giving an admission NIHSS of 5. Imaging studies showed: CTH - infarct in the right MCA territory. CTA - Significant critical stenosis of the right M1 segment.There is reduced caliber of the right M2 segment superior branch. MRH - No acute infarct. Encephalomalacia in the right parietal lobe.. Echo - The left atrium is dilated. The left ventricular systolic function is normal. The LVEF is visually estimated at 60 - 70%. Patient was diagnosed with TIA, Transient Aphasic episode. TPA was not administered due to patient presented outside of window. Thrombectomy was not performed due to no ELVO. The mechanism for this event is believed to be not an acute stroke. Patient was evaluated with speech and dysphagia team prior to oral intake. We started secondary prophylaxis with ASA 81 mg and Atorvastatin 40 mg. Antiplatelet and DVT prophylaxis was started on the day of arrival. Patch monitor placed at discharge for the concern of A-fib and the mechanism of cardio embolic of the old stroke On day of discharge, patient's NIHSS is 0. Referral for Neuropsychology evaluation at 180-days after thrombectomy was not applicable due to nothrombectomy performed. Patient's modified paresh score at time of discharge is 1: No significant disability despite symptoms; able to carry out all usual duties and activities . Patient was evaluated by PT/OT team and is felt to be discharged to Home with assistance (as needed). Patient will be seen in Stroke clinic in 8-12 weeks and Transitions of Care clinic in 7-14 days . Other follow up includes PCP. Follow up with PCP for management of all other comorbidities, including any vascular risk factors (blood pressure, lipids, blood sugar, tobacco use) that may apply. Stroke education on signs and symptoms, risk factors including HTN, tobacco use, 911, importance offollow up and medications is provided before discharge. The patient has been counseled on tobacco cessation: Yes Other conditions managed during this admission: #Hypocalcemia #Hypomagnesemia #Hypophosphatemia # Obstructive sleep apnea: # Tobacco use disorder: # Hypertension: # Hypothyroidism: # Hyperlipidemia: Surgeries and Procedures Procedures performed in this encounter Procedures Critical Care Medication List .. armodafinil 200 MG tablet Commonly known as: Nuvigil Take 1 tablet by mouth daily. aspirin 81 MG chewable tablet Chew 1 tablet daily. Start taking on: October 28, 2024 buPROPion XL 300 MG 24 hr tablet Commonly known as: Wellbutrin XL Take 1 tablet by mouth daily. Do not crush, chew, or split. clopidogrel 75 MG tablet Commonly known as: Plavix Take 1 tablet by mouth daily for 21 days. fenofibrate 160 MG tablet Commonly known as: Triglide Take 1 tablet by mouth daily. fluticasone-salmeterol 250-50 MCG/ACT diskus inhaler Commonly known as: Advair Diskus Inhale 1 puff 2 times a day. Rinse mouth with water after use to reduce aftertaste and incidence ofcandidiasis. Do not swallow. * levothyroxine 50 MCG tablet Commonly known as: Synthroid, Levoxyl Take 1 tablet by mouth daily. * levothyroxine 200 MCG tablet Commonly known as: Synthroid, Levoxyl Take 1 tablet by mouth daily. losartan 25 MG tablet Commonly known as: Cozaar Take 1 tablet by mouth daily. rosuvastatin 20 MG tablet Commonly known as: Crestor Take 1 tablet by mouth daily. * This list has 2 medication(s) that are the same as other medications prescribed for you. Read thedirections carefully, and ask your doctor or other care provider to review them with you. Where to Get Your Medications These medications were sent to [facility] - [place], [place] - [address] [facility] [id number] aspirin 81 MG chewable tablet clopidogrel 75 MG tablet rosuvastatin 20 MG tablet Discharge Diagnosis Medical Problems Active and Resolved Hospital Problems Hospital Aphasia * (Principal) Stroke (CMS/HCC) Overview Addendum 10/25/2024 8:52 PM by Everett Zhang APRN R MCA territory stroke Repeat CT scan of head pending LKN 2200 10/24/22 No thrombectomy SBP less than 220 Sodium goal 140-145 Keep HOB elevated NIHSS and neuro examinations per ICU protocol Will continue ongoing stroke education HLD (hyperlipidemia) Overview Signed 10/25/2024 8:52 PM by Everett Zhang APRN Continue statin GERD (gastroesophageal reflux disease) Overview Signed 10/25/2024 8:52 PM by Everett Zhang APRN Continue PPI JUAN DIEGO (obstructive sleep apnea) Overview Signed 10/25/2024 8:52 PM by Everett Zhang APRN Complicates all aspects of care. CPAP as appropriate Former smoker Overview Signed 10/25/2024 8:53 PM by Everett Zhang APRN Complicates all aspects of care. Obesity Overview Signed 10/25/2024 8:53 PM by Everett Zhang APRN Complicates all aspects of care. Electrolyte abnormality Overview Signed 10/25/2024 9:00 PM by Everett Zhang APRN Replace and trend per ICU protocol Feeding difficulties Overview Signed 10/25/2024 9:00 PM by Everett Zhang APRN Secondary to aphasia NG/OG as necessary for PO access Nutrition consulted for TF recs, appreciate coordination of care Tube feeding per nutritional recommendations via [facility], [facility]IC[facility] consult as indicated\ Hypothyroid Overview Signed 10/25/2024 9:03 PM by Everett Zhang APRN TSH 48.20 Unknown home med dose Resume home medications as appropriate T4 pending Post Discharge Instructions - Follow up in Transitions of Care clinic in 3-14 days - Follow up in Stroke clinic in 8-12 weeks - Follow up with PCP in the management of chronic diseases Call 911 Call 911 right away if: You have weakness, tingling, or loss of feeling on 1 side of your face or body. You have sudden double vision, or trouble seeing in 1 or both eyes. You have sudden trouble talking, or slurring your speech. You have trouble understanding other people speaking. You have sudden, severe headache. You have dizziness, loss of balance, a spinning feeling, or a sense of falling. You have blackouts. You have seizures. B.E. F.A.S.T. is an easy way to remember the signs of stroke. When you see these signs, you know that you need to call 911 fast. B.E. F.A.S.T. stands for: B is for balance. Sudden loss of balance or coordination. E is for eyes. Vision changes in 1 or both eyes. F is for face drooping. One side of the face is drooping or numb. When the person smiles, the smileis uneven. A is for arm weakness. One arm is weak or numb. When the person lifts both arms at the same time, 1arm may drift downward. S is for speech difficulty. You may notice slurred speech or trouble speaking. The person can't repeat a simple sentence correctly when asked. T is for time to call 911. If someone shows any of these symptoms, even if they go away, call 911 right away. Make note of the time the symptoms first appeared. Outpatient Follow-Up Future Appointments Date Time Provider Department Center 11/05/2024 1:30 PM Sofia Dillard PA [facility] 06/10/2025 9:00 AM Korey Fernandes MD [facility] Test Results Pending At Discharge None Pertinent Physical Exam At Time of Discharge Physical Exam Neurological: Mental Status: alert, interactive, follows instructions intermittently Speech: Patient is able to read appropriately, repetition intact, fluency is intact CN: Pupil: equal, round, reactive to light and accommodation I - deferred II - VF: VF full III, IV, - EOM intact; no gaze deviation/preference; V - Facial sensation: Grossly intact to touch VII - Facial movements: Normal and symmetric VIII - Auditory acuity intact to conversation IX, X - Palate elevated normally, uvula midline XI - Movement and strength are normal for age XII - Tongue Midline and protrudes normally Motor: RUE: 5/5 LUE: 5/5 RLE: 5/5 LLE: 5/5 Sensory: Intact to fine touch and pinprick Gait: HAI Discharge Disposition/Condition Disposition: Home Condition: Stable (s/sx potential problems absent or manageable) I spent >30 minutes of patient care and instruction time in preparation for this discharge. Cosigned by Liliane Higgins MD at 10/27/2024 10:57 PM EDT Associated attestation - Liliane Higgins MD - 10/27/2024 10:57 PM EDT I saw and evaluated the patient with the resident/fellow. I discussed the case with the resident/fellow and agree with the findings and plan as documented. No acute infarct. Chronic right parietal infarct, which patient was not aware of. Mechanism ESUS, but highly suspicious for cardioembolic source. Will follow up in [facility]. * Hospital Course - Brad Roman MBBS - 10/27/2024 2:50 PM EDT For patients dischargin home put your senior resident name here: Jose Rodgers #TIA #Transient Aphasia #Ischemic stroke(chronic), POA The patient presented with initial deficits of Aphasia giving an admission NIHSS of 5. Imaging studies showed: CTH - infarct in the right MCA territory. CTA - Significant critical stenosis of the right M1 segment.There is reduced caliber of the right M2 segment superior branch. MRH - No acute infarct. Encephalomalacia in the right parietal lobe.. Echo - The left atrium is dilated. The left ventricular systolic function is normal. The LVEF is visually estimated at 60 - 70%. Patient was diagnosed with TIA, Transient Aphasic episode. TPA was not administered due to patient presented outside of window. Thrombectomy was not performed due to no ELVO. The mechanism for this event is believed to be not an acute stroke. Patient was evaluated with speech and dysphagia team prior to oral intake. We started secondary prophylaxis with ASA 81 mg and Atorvastatin 40 mg. Antiplatelet and DVT prophylaxis was started on the day of arrival. Patch monitor placed at discharge for the concern of A-fib and the mechanism of cardio embolic of the old stroke On day of discharge, patient's NIHSS is 0. Referral for Neuropsychology evaluation at 180-days after thrombectomy was not applicable due to nothrombectomy performed. Patient's modified paresh score at time of discharge is 1: No significant disability despite symptoms; able to carry out all usual duties and activities . Patient was evaluated by PT/OT team and is felt to be discharged to Home with assistance (as needed). Patient will be seen in Stroke clinic in 8-12 weeks and Transitions of Care clinic in 7-14 days . Other follow up includes PCP. Follow up with PCP for management of all other comorbidities, including any vascular risk factors (blood pressure, lipids, blood sugar, tobacco use) that may apply. Stroke education on signs and symptoms, risk factors including HTN, tobacco use, 911, importance offollow up and medications is provided before discharge. The patient has been counseled on tobacco cessation: Yes Other conditions managed during this admission: #Hypocalcemia #Hypomagnesemia #Hypophosphatemia # Obstructive sleep apnea: # Tobacco use disorder: # Hypertension: # Hypothyroidism: # Hyperlipidemia: * Nursing Note - Edmund Whitten - 10/27/2024 11:05 AM EDT Stroke Team Interdisciplinary Transition of Care [facility] ([facility]) Patient: Edwin Edwin Cook Care Team: Patient Care Team: Pcp, Nae as PCP - General (Family Medicine) Staff Present: Rv Repair Technician, Pot Room Supervisor, Pharmacy, Speech Therapy, Physical/Occupational Therapy, Neurology Resident, Neuroscience Nurse Navigator, Gear Shaper, and Stroke [employer] Level of Care: Progressive Status: stable ECHO pending DC Home Rec Edmund Whitten 10/27/24 11:05 AM * Care Plan - Renu Shahid RN - 10/27/2024 7:30 AM EDT Problem: Adult Inpatient Plan of Care Goal: Patient-Specific Goal (Individualized) Outcome: Ongoing, Progressing Problem: Adult Inpatient Plan of Care Goal: Optimal Comfort and Wellbeing Outcome: Ongoing, Progressing * Care Plan - Shanique Sandoval RN - 10/26/2024 5:30 PM EDT Problem: Adult Inpatient Plan of Care Goal: Absence of Hospital-Acquired Illness or Injury Outcome: Ongoing, Progressing Goal: Optimal Comfort and Wellbeing Outcome: Ongoing, Progressing Goal: Readiness for Transition of Care Outcome: Ongoing, Progressing * Progress Notes - Lauri Pacheco - 10/26/2024 1:57 PM EDT OCCUPATIONAL THERAPY EVALUATION PATIENT DATA Patient Name Edwin Cook Session Date 10/26/2024 OT Discharge Recommendations Home with assistance Equipment Recommendations None HISTORY Edwin Cook is 69 y.o. male admitted 10/25/2024 for work-up of Stroke ([facility]). NIH Stroke Scale: 4 Hospital Course 1. Cerebrovascular accident (CVA), unspecified mechanism ([facility]) Procedures (if applicable) Past Medical History Patient has no past medical history on file. Past Surgical History Patient has no past surgical history on file. MOBILITY GUIDELINES Activity: Stroke Stroke Guidelines: General - No Restrictions. NOT receving tPA Extremity Precautions: No Extremity Precautions Other mobility precautions: No other precautions required PRECAUTIONS Medical Precautions Medical Precautions: SBP permissive SUBJECTIVE PARTICIPANTS IN CARE Patient/Caregiver Comments 'One minute I was makin my coffee and the next I couldn't talk' Visitors Present No PRESENTATION Oxygen None (Room air) Nasal cannula 2 L/min Telemetry Yes Lines and Tubes Male External Urinary Catheter 10/25/241999 External Catheter (Active) Peripheral IV 10/25/24 Left Antecubital (Active) Peripheral IV 10/25/24 Left;Posterior Hand (Active) Pre-Session Supine, Head of bed elevated, Lines intact RN consenting to session Post-Session Sitting: edge of bed, Lines intact, RN notified, Call light in reach RN aware no chairalarm box Bracing (if applicable) HOME LIVING/SET-UP Lives With Spouse Home Type House Home Equipment Rollator, Rolling walker Home Layout Two level, Able to live on one level with bedroom/bathroom, Stairs to enter with rails Number of Stairs: 4 Bathroom Layout Walk-in shower Bathroom: Toilet: Standard Accessible Additional Comments PRIOR LEVEL OF FUNCTION Receives help from No assist required prior to admission Level of Mobility Ambulatory- community Mobility [place] Independent gait without device History of Falls No ADL Performance ADL Performance: Independent PATIENT/FAMILY GOALS Pt amenable to session OBJECTIVE PAIN Pt does not quantify/demonstrate and/or report debilitating pain this session. DELIRIUM SCREENING [place] Agitation Sedation Scale (RASS): Alert and calm Confusion Assessment Method-ICU (CAM-ICU/PCAM-ICU) Feature 3: Altered Level of Consciousness: Negative COGNITION Overall Cognitive Status Within Functional Limits Arousal/Alertness Appropriate responses to stimuli Mood/Behavior Alert Orientation Command Following Single Step Commands: Consistently Multi-Step Commands: Consistently Method of Communication Verbal Additional Observations VISION Baseline Vision Glasses reading Current Vision (if different) PERCEPTION Inatttention/Neglect (if assessed) Initiation (if assessed) Motor Planning (if assessed) COORDINATION Gross Motor Fine Motor Coordination Fine Motor Coordination Examination Left Hand Thumb/Finger Opposition Skills: Mild impairment Right Hand Thumb/Finger Opposition Skills: Normal performance Left Hand, Diadochokinesis Skills: Mild impairment Right Hand, Diadochokinesis Skills: Normal performance RIGHT UPPER EXTREMITY EXAMINATION Range of Motion Within Functional Limits Manual Muscle Testing Within functional limits Light Touch Sensation Intact Pain Sensation Muscle Tone LEFT UPPER EXTREMITY EXAMINATION Range of Motion Within Functional Limits Manual Muscle Testing Within functional limits Light Touch Sensation Intact Pain Sensation Muscle Tone RIGHT LOWER EXTREMITY EXAMINATION Range of Motion Within Functional Limits Manual Muscle Testing Within functional limits Light Touch Sensation Intact Pain Sensation Muscle Tone LEFT LOWER EXTREMITY EXAMINATION Range of Motion Within Functional Limits Manual Muscle Testing Within functional limits Light Touch Sensation Intact Pain Sensation Muscle Tone INTERVENTIONS SELF-CARE Treatment Minutes (if applicable) 14 Level of [place] Interventions Feeding Pt presenting with 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 Completes oral hygiene and face washing standing at sink side. Pt completing simulated household mobility to ambulate > 300' without AD, completing simulated home entry/exit of 4 steps with one minor LOB with CGA to correct; Pt tachycardic to 135 midway through mobility Lower Body Dressing Sock Level of Assistance: Setup, Close supervision BED MOBILITY Level of [place] Physical/Non- physical Assist Scooting/ Bridging Stand-by assist Set-up required, Verbal Cues Supine to Sit Stand-by assist Set-up required, Verbal Cues TRANSFERS Level of [place] Physical/Non- physical Assist Adaptive Equipment Utilized Sit to Stand Stand-by assist Set-up required, Verbal Cues, Nonverbal cues (demo/gestures), Additional assist utilized for safety Hand held assist Stand to sit Stand-by assist Set-up required, Verbal Cues, Nonverbal cues (demo/gestures) Hand heldassist BALANCE Postural Appearance Posture: Within Functional Limits Level of [place] Balance Support Interventions Static Sit Independent Dynamic Sit Independent Dynamic Sitting-Balance: Lateral weight shifts, Anterior/Posterior weight shifts, Reaching for objects Static Stand Standby assist Dynamic Stand Standby assist STANDARDIZED ASSESSMENTS [facility] 6-Click Daily Activities Help from Other: Don/Doff Regular Lower Body Clothings: Little Help From Other: Bathing: Little Help From Other: Toileting: None Help From Other: Don/Doff Upper Body Clothings: None Help From Other: Grooming: None Help From Other: Eating Meals: None [facility] 6 Click - Daily Activities Score: 22 Pre-Stroke MRS Pre-Stroke Modified [place] Scale : The patient had no residual symptoms. ASSESSMENT OT FINDINGS Pt presenting with minimally Impaired ADL performance, Impaired IADL performance. Overall, Pt demonstrates minimal occupational/functional limitation this session with fair activity tolerance, reporting and/or demonstrating increased fatigue and work of breathing throughout intervention; baseline COPD. Pt requires increased verbal cues and time to complete simple self care tasks, functional transfers, and ADLs. Skilled OT intervention not warranted at this time due to current functional level and adequate family support to return to home with assistance from spouse for increased safety and independence across occupational performance. No further DME recommendations or outpatient services atthis time. Evaluation/ Treatment Tolerance (if identified) Patient limited by fatigue Rehab Potential (if identified) Good, to achieve stated therapy goals Barriers to Discharge (if identified) EVAL COMPLEXITY Occupational Profile Expanded review of medical/therapy records and additional review of physical, cognitive, or psychosocial history Performance Deficits Activities of daily living (ADLs), Instrumental activities of daily living (IADLs) Clinical Decision Making Low Overall Eval Complexity Low OT RECOMMENDATIONS Discharge Destination Home with assistance Discharge Equipment None Recommendations for Referral to Another Service (if applicable) PLAN DC OT Written by Lauri Pacheco on 10/26/24 at 1:57 PM. * Progress Notes - Sarah Mcginnis - 10/26/2024 1:50 PM EDT Physical Therapy Evaluation/Discharge Patient Name: Edwin Cook Today's Date: 10/26/2024 PT Discharge Recommendations: Home with assistance (as needed) Equipment Recommended: None History Edwin Cook is 69 y.o. male admitted 10/25/2024 for work-up of Stroke (CMS/HCC). Hospital Course 1. Cerebrovascular accident (CVA), unspecified mechanism (CMS/HCC) Procedures Past Medical History Patient has no past medical history on file. Past Surgical History Patient has no past surgical history on file. Precautions Medical Precautions: SBP permissive Subjective Pt reports he feels back to his baseline. Pt reports his was unable to speak with when he noticed symptoms occurring. Pt denied strength/balance and mobility impairments. Participants in Care Family/Caregiver Present: No Gas Engine Operator Compressors: Not Applicable PRESENTATION Oxygen None (Room air) Nasal cannula 2 L/min Lines and Tubes Male External Urinary Catheter 10/25/241999 External Catheter (Active) Peripheral IV 10/25/24 Left Antecubital (Active) Peripheral IV 10/25/24 Left;Posterior Hand (Active) Pre-Session Supine, Head of bed elevated, Lines intact RN consenting to session Post-Session Sitting: edge of bed, Lines intact, RN notified, Call light in reach RN aware no chairalarm box HOME LIVING/SET-UP Lives With Spouse Home Type House Home Equipment Rollator, Rolling walker Home Layout Two level, Able to live on one level with bedroom/bathroom, Stairs to enter with rails Number of Stairs: 4 Bathroom Layout Bathroom: Tub/Shower: Walk-in shower Bathroom: Toilet: Standard Bathroom: Accessibility: Accessible PRIOR LEVEL OF FUNCTION Assist at Home No assist required prior to admission Level of Mobility Ambulatory- community Mobility [place] Independent gait without device History of Falls No Overall ADL Performance Independent PATIENT/FAMILY GOALS Agreeable to PT POC Objective Pain Pt without report of pain Delirium Screening [place] Agitation Sedation Scale (RASS): Alert and calm Confusion Assessment Method-ICU (CAM-ICU/PCAM-ICU) Feature 3: Altered Level of Consciousness: Negative Cognition Overall Cognitive Status: Within Functional Limits Arousal/Alertness: Appropriate responses to stimuli Mood/Behavior: Alert Single Step Commands: Consistently Multi-Step Commands: Consistently Method of Communication: Verbal Vision - Complex Assessment Baseline Vision: Glasses reading Right Upper Extremity Examination RUE Assessment: Within Functional Limits Manual Muscle Testing - RUE: Within functional limits Light Touch: Right Upper Extremity: Intact Left Upper Extremity Examination LUE Assessment: Within Functional Limits Manual Muscle Testing - LUE: Within functional limits Light Touch: Left Upper Extremity: Intact Right Lower Extremity Examination RLE Assessment: Within Functional Limits Manual Muscle Testing - RLE: Within functional limits Light Touch: Right Lower Extremity: Intact Left Lower Extremity Examination LLE Assessment: Within Functional Limits Manual Muscle Testing: Within functional limits Light Touch: Left Lower Extremity: Intact Perception/Coordination LUE coordination: baseline tremor from previous back injury. THERAPEUTIC ACTIVITY Treatment Minutes 8 Interventions Therapist facilitated bed mobility training, transfer training, ambulation, and balance training to improve/assess safe functional mobility, strength, and activity tolerance. . Refer tospecific sections for further detail on specific interventions performed. BED MOBILITY Interventions HOB elevated. Verbal cue to initiate. Level of [place] Physical/Non- physical Assist Adaptive Equipment Utilized Rolling/ Turning Scooting/ Bridging Stand-by assist Set-up required, Verbal Cues Supine to Sit Stand-by assist Set-up required, Verbal Cues Sit to Supine TRANSFERS Interventions Verbal cue for safety. Level of [place] Physical/Non- physical Assist Adaptive Equipment Utilized Sit to Stand Stand-by assist Set-up required, Verbal Cues, Nonverbal cues (demo/gestures), Additional assist utilized for safety Hand held assist Stand to sit Stand-by assist Set-up required, Verbal Cues, Nonverbal cues (demo/gestures) Hand heldassist Bed to Chair Toilet Transfer Shower Transfer AMBULATION Level of [place] Distance Adaptive Equipment Utilized Ambulation Standby assist 330' including ascend/descend 4 with recripocal gait and unilateral rail with CGA x1 to turn No device Comments Pt navigated open hallway environment including obstacles and turns without LOB noted. Pt with swing through gait pattern. BALANCE Postural Appearance Posture: Within Functional Limits Level of [place] Balance Support Interventions Static Sit Independent Dynamic Sit Independent Dynamic Sitting-Balance: Lateral weight shifts, Anterior/Posterior weight shifts, Reaching for objects Static Stand Standby assist Dynamic Stand Standby assist Standardized Assessments [facility] 6-Clicks Mobility Assessment Difficulty patient has turning over in bed (including adjusting bedclothes, sheets, and blankets)?:None Difficulty patient has sitting down on and standing up from a chair with arms (wheelchair, bedside commode, etc.)?: None Difficulty patient has moving from lying on back to sitting on the side of the bed?: None How much help does the patient need moving to and from a bed to a chair (including a wheelchair)?: None How much help does the patient need to walk in hospital room?: None How much help does the patient need climbing 3-5 steps with a railing?: None [facility] 6-Clicks Mobility Assessment Total : 24 Pre-Stroke MRS Pre-Stroke Modified [place] Scale : The patient had no residual symptoms. Assessment Pt tolerated session on RA O2 with SpO2 96-93% post mobility. RN present and requesting to re-don supplemental O2. Pt reports BL COPD with increased WOB. Pt reports being at baseline mobility level. Pt demonstrated safe upright mobility with slight increased assistance for turn on stairwell. Pt educated on PT POC, fall risk reduction, and FAST stroke sign/symptoms. Pt encouraged to ambulate with nursing staff and sit out of bed to chair as tolerated. Pt does not require continued inpatient PT at this time and PT will sign off. Please re- consult with change in status. Evaluation/Treatment Tolerance: Other (Comment) (tolerated session without adverse effects) Diagnosis: Decreased functional mobility Eval Complexity History Profile: 1 - 2 personal factors and/or comorbidities Clinical Presentation: Stable and/or uncomplicated characteristics Clinical Decision Making: Low complexity PT Recommendations Discharge Destination: Home with assistance (as needed) Discharge Equipment: None Plan Patient no longer demonstrates need for inpatient physical therapy services. Patient to be discharged from physical therapy. Written by Sarah Mcginnis on 10/26/24 at 1:59 PM. * Progress Notes - Roseanna Mohr MBBS - 10/26/2024 10:45 AM EDT Stroke ICU Neurology Progress Note Brief Summary Edwin Cook is a 69 y.o. male with PMH of hyperlipidemia, GERD, JUAN DIEGO, new diagnosis of esophagealmass, hypothyroidism, tobacco use disorder, obesity presenting with speech difficulty. LKN was 62392/6. She was found to have R MCA inferior division ischemic stroke with Right M1 MCA critical stenosis and left P2 occlusion. Subjective No acute events overnight. Noted to have improvement in his aphasia this morning. Objective Vitals: 10/26/24 0500 10/26/24 0540 10/26/24 0600 10/26/24 0700 BP: (!) 151/77 (!) 173/81 120/57 Pulse: 54 59 (!) 47 Resp: 15 19 17 Temp: TempSrc: SpO2: 97% 97% 94% Weight: 121 kg (266 lb 1.5 oz) Temp (72hrs), Av.3 ??C (99.1 ??F), Min:37 ??C (98.6 ??F), Max:37.6 ??C (99.7 ??F) Temp (24hrs), Av.3 ??C (99.1 ??F), Min:37 ??C (98.6 ??F), Max:37.6 ??C (99.7 ??F) Physical Exam: General: NAD, male HEENT: Normocephalic, atraumatic RS: Nonlabored breathing, None (Room air) CVS: Sinus rhythm GI: abdomen nondistended, nontender to palpation MSK: no joint effusions, no bony malformations Skin: no rashes or skin lesions PSYCH: Unable to assess Neurological: Mental Status: alert, interactive, follows instructions intermittently Speech: Patient is able to read appropriately, repetition intact, fluency is intact CN: Pupil: equal, round, reactive to light and accommodation I - deferred II - VF: VF full III, IV, - EOM intact; no gaze deviation/preference; V - Facial sensation: Grossly intact to touch VII - Facial movements: Normal and symmetric VIII - Auditory acuity intact to conversation IX, X - Palate elevated normally, uvula midline XI - Movement and strength are normal for age XII - Tongue Midline and protrudes normally Motor: RUE: 5/5 LUE: 5/5 RLE: 5/5 LLE: 5 Sensory: Intact to fine touch and pinprick Gait: HAI Labs: CBC: Results from last 7 days Lab Units 10/26/2434210/25/24201010/25/24 180 WBC 10*3/uL 13.15* 12.09* 11.74* HEMOGLOBIN g/dL 14.2 15.1 15.8 HEMATOCRIT % 41.1 44.7 46.3 PLATELETS 10*3/uL 221 222 215 CMP/RFP: Results from last 7 days Lab Units 10/26/2434210/25/24201010/25/24 19010/25/24 1802 SODIUM mmol/L 134* 135* 135* 134* 134* 131* POTASSIUM mmol/L 3.7 3.6 3.0* 3.5* CHLORIDE mmol/L 103 99 100 97 CO2 mmol/L 22 22 21* 21* BUN mg/dL 8 7* 7* 8 CREATININE mg/dL 0.97 0.93 0.83 0.94 CALCIUM mg/dL 7.8* 8.8* 7.9* 8.6* MAGNESIUM mg/dL 2.8* -- 1.7* -- PHOSPHORUS mg/dL 4.4 -- 1.8* -- ALBUMIN g/dL -- -- -- 4.2 BILIRUBIN TOTAL mg/dL -- -- -- 0.9 ALKALINE PHOSPHATASE U/L -- -- -- 75 ALT U/L -- -- -- 21 AST U/L -- -- -- 21 GLUCOSE mg/dL 104* 140* 125* 133* Results from last 7 days Lab Units 10/25/24201010/25/24 180 INR 1.1 1.1 Results Procedure Component Value Units Date/Time Ivory auris Surveillance by PCR [[id number]] (Normal) Collected: 10/26/24342 Order Status: Completed Specimen: Swab from Axilla and Groin Updated: 10/26/24 1036 Ivory auris PCR Result Not Detected Narrative: This PCR assay was developed and its performance characteristics determined by [facility] as appropriate for clinical purposes. This assay has not been cleared or approved bythe FDA, but is performed in a CLIA regulated laboratory that is qualified to perform high-complexity testing. Multi Drug Resistance Test [[id number]] Collected: 10/26/24 0343 Order Status: Sent Specimen: Swab from Nares and Catie Rectal Updated: 10/26/24 0417 Imaging: CT Head wo IV Contrast Result Date: 10/26/2024 Impression: Redemonstration of evolving area of ischemia in the posterior right MCA territory. No significant mass effect or definite hemorrhagic transformation. CRITICAL RESULT: No. COMMUNICATION: Per this written report. Drafted by Malcolm Rogers MD on 10/26/2024 8:08 AM Final report signed by Malcolm Rogers MD on 10/26/2024 8:12 AM XR Abdomen 1 View Result Date: 10/26/2024 Impression: No radiographic foreign bodies or abandoned leads to preclude MRI scan CRITICAL RESULT:No. COMMUNICATION: Per this written report. Drafted by Millie Lenz MD on 10/26/2024 7:52 AM Final report signed by Millie Lenz MD on 10/26/2024 7:[address] Head wo IV contrast Result Date: 10/25/2024 Impression: Evolving ischemic infarct of the right MCA territory. Subcentimeter hypodensity in the left basal ganglia suggestive of a age-indeterminate lacunar infarct. Significant critical stenosis of the right M1 segment.There is reduced caliber of the right M2 segment superior branch. Occlusion of the left P2 segment [employer] (series 3 image 1 5). CRITICAL RESULT: No. COMMUNICATION: Per this written report. Drafted by Beulah Hu MD on 10/25/2024 6:08 PM Final report signed by Beulah Hu MD on 10/25/2024 6:[address] Angio Head Result Date: 10/25/2024 Impression: Evolving ischemic infarct of the right MCA territory. Subcentimeter hypodensity in the left basal ganglia suggestive of a age-indeterminate lacunar infarct. Significant critical stenosis of the right M1 segment.There is reduced caliber of the right M2 segment superior branch. Occlusion of the left P2 segment [employer] (series 3 image 1 5). CRITICAL RESULT: No. COMMUNICATION: Per this written report. Drafted by Beulah Hu MD on 10/25/2024 6:08 PM Final report signed by Beulah Hu MD on 10/25/2024 6:[address] Angio Neck Result Date: 10/25/2024 Impression: Evolving ischemic infarct of the right MCA territory. Subcentimeter hypodensity in the left basal ganglia suggestive of a age-indeterminate lacunar infarct. Significant critical stenosis of the right M1 segment.There is reduced caliber of the right M2 segment superior branch. Occlusion of the left P2 segment [employer] (series 3 image 1 5). CRITICAL RESULT: No. COMMUNICATION: Per this written report. Drafted by Beulah Hu MD on 10/25/2024 6:08 PM Final report signed by Beulah Hu MD on 10/25/2024 6:34 PM Assessment and Plan Edwin Cook is a 69 y.o. male with PMH of hyperlipidemia, GERD, JU[place] DIEGO, new diagnosis of esophagealmass, hypothyroidism, tobacco use disorder, obesity presenting with speech difficulty. LKN was 70703/. She was found to have R MCA inferior division ischemic stroke with Right M1 MCA critical stenosis and left P2 occlusion #Aphasia, likely transcortical sensory patient, improving #Acute ischemic stroke, R inferior M2 division infarct #ICAD #Acute encephalopathy, improve #Concern for basilar tip thrombus #Limited mobility 2/2 stroke #Feeding difficulties 2/2 stroke #Speech difficulties 2/2 stroke LNK: 1100 10/24; Initial NIHSS: 5 Interventions: tPA: no. MT: No Risk factors: age, hyperlipidemia, hypertension, and smoking Mechanism: Large artery atherosclerosis Home secondary prevention measures: Unclear which statin patient is on at, reportedly does not takebaby aspirin over the past few years Imaging: -CTH: Evolving infarct in the right MCA territory -CTA H/N: critical stenosis in the right M1 segment, reduced caliber of the right M2 segment, occlusion of the left P2, poor opacification of the tip of the basilar Recommendations/Plan: Blood pressure goals: Permissive HTN for first 24 hrs, PRN > 220 SBP Sodium Goals: Normal Stroke Workup, pending: Consults: PT, OT, OVERHEAD CRANE TECHNICIAN Labs/Studies (if not done in the ER): CBC, CMP, HbA1c, Lipid profile, and TSH Imaging: MRI brain w/o contrast and TTE w/o bubble Neuro checks: with NIHSS per protocol Dysphagia Screen: Passed Neuropsychology screening for depression/cognition prior to discharge Stroke Education Smoking cessation: Pending improving Secondary prevention measures: -Statins:Atorvastatin 40mg -Antiplatelet: Aspirin and Clopidogrel #Leukocytosis - WBC 12 --> 13.15. Afebrile with no signs of infection. Could be reactive - Will continue to trend CBC and monitor for signs of infection. #Hypocalcemia #Hypomagnesemia #Hypophosphatemia - Replete # History of new diagnosed esophageal mass -patient's unclear about the true history # Obstructive sleep apnea: Reportedly uses CPAP at home # Tobacco use disorder: NAD as needed # Hypertension: Permissive hypertension in the 1st 24 hours, restart home meds as appropriate # Hypothyroidism: Restart home meds as appropriate, free T4 normal. Elevated TSH # Hyperlipidemia: Per patient is on a statin unclear which one, started atorvastatin while inpatient Code status: No Order Fluids: PO Electrolyte: Monitoring and replacing PRN Nutrition/Diet: Regular diet DVT Ppx: pLOV PT/OT Recs: pending OVERHEAD CRANE TECHNICIAN Recs: pending Dispo: Downgrade to Stroke PCU Patient staffed with Dr. Clements. RACHAEL Marvin PGY-3, Neurology Epic Chat preferred Cosigned by Lyudmila Clements MD at 10/29/2024 9:44 AM EDT Associated attestation - Lyudmila Clements MD - 10/29/2024 9:44 AM EDT I saw and evaluated the patient with the resident/fellow. I discussed the case with the resident/fellow and agree with the findings and plan as documented. Critical care time spent was 32 minutes. Critical care time was exclusive of teaching time and separately billable procedures and treating other patients. Critical care included time spent personally by me on the following activities: evaluation of the patient, discussion of the patient with housetsaff and critical care team, discussion withfamily, and review of images. Subacute to chronic right MCA stroke stroke. Severe ICAD otherwise. Plan for DAPT. Downgrade to PCU * Progress Notes - Khoi Holder, SARITHA-OVERHEAD CRANE TECHNICIAN - 10/26/2024 10:28 AM EDT Speech Language Pathology Speech / Language / Communication and Clinical Swallow Initial Evaluation Patient Name: Edwin Cook Age: 69 y.o. Today's Date: 10/26/2024 Recommendations: Continue IDDSI 7 Easy to chew diet with IDDSI 0 thin liquids. Meds as able. OVERHEAD CRANE TECHNICIAN will follow-up at bedside for diet tolerance and cognitive tx in the area of short-term memory. History/Background Information 69 y.o. male with PMH of hyperlipidemia, GERD, JUAN DIEGO, new diagnosis of esophageal mass hypothyroidism, tobacco use disorder, obesity presenting with speech difficulty. LKN was 1100 10/24 Relevant Imaging: CT Head wo IV Contrast 10/26/2024: Redemonstration of evolving area of ischemia in the posterior right MCA territory. No significant mass effect or definite hemorrhagic transformation. Problem List[1] Past Medical History[2] Surgical History[3] Current diet: Adult diet Diet texture: Easy to Chew 7 Subjective Edwin Cook was alert and cooperative. Identified by name and date of . RN provided verbal consent for evaluation. Objective Risk factors: R MCA stroke, GERD Current diet: Adult diet Diet texture: Easy to Chew 7 Respiratory Status: 2 L NC WBC: 13.15 GCS: 14 NIH: 2 Vitals: 10/26/24 0700 BP: 120/57 Pulse: (!) 47 Resp: 17 Temp: SpO2: 94% Direction Following: Follows multi-step and complex directions Oral Mechanism Report: Dentition: intact Oral hygiene: WFL Focused Cranial Nerve Exam: Trigeminal Nerve (V): facial sensation intact Facial Nerve (VII): buccinator strength seemingly WFL Vagus (X): intact palate elevation Spinal Accessory (XI): Not assessed Hypoglossal Nerve (XII): WFL Laryngeal Function Exam: Secretion Management: adequate Vocal Quality: adequate Cough: - Volitional not assessed - Reflexive not assessed Oral Care Completed: no Oral Feeding Trials: Positionin degrees, upright Feeding assistance: independent, self-fed Consistencies Administered: thin liquid via cup, thin liquid via straw, puree via teaspoon, and drysolid consistency Oral Stage: WFL Pharyngeal Stage: no overt signs/symptoms of aspiration 90 mL water test (Jacinda & Carlos Eduardo, 2014): pass COMMUNICATION: Informal assessment revealed the following: Receptive Language Not Impaired Impaired Not Assessed Comments Functional Object Use [x] [] [] Simple yes/no [x] [] [] Complex yes/no [x] [] [] Object Identification [x] [] [] 1-2 Step Command Following [x] [] [] Complex Command Following [x] [] [] Understands Simple Conversation [x] [] [] Understands Complex Conversation [x] [] [] Expressive Language Not Impaired Impaired Not Assessed Comments Nonverbal (gesture / facial expression) [x] [] [] Automatic speech [x] [] [] Repetition [x] [] [] Open ended phrases [x] [] [] Responsive naming [x] [] [] Confrontation naming [x] [] [] Sentence formulation [x] [] [] Conversational speech [x] [] [] Reading/Writing Not Impaired Impaired Not Assessed Comments Reading: [x] numbers/letters [] word [] sentences [] paragraphs [x] [] [] Writing: [] number/letters [] word [] sentences [] paragraphs [] [] [x] Motor Speech Not impaired Impaired Not Assessed Comments Articulation [x] [] [] Phonation [x] [] [] Respiration [x] [] [] Resonance [x] [] [] Prosody [x] [] [] Intelligibility in Conversation [x] [] [] Cognition Not Impaired Impaired Not Assessed Comments Orientation [] [] [] Person [x] [] [] Place [x] [] [] Time [x] [] [] Situation [x] [] [] [x] [] [] Attention [] [] [] Sustained [x] [] [] Divided [] [] [x] Alternating [] [] [x] Selective [] [] [x] Executive [] [] [x] Memory [] [] [] Immediate [x] [] [] Short term [] [x] [] Pt recalled 1/3 unrelated words given 2-minute delay penitentiary [x] [] [] Problem Solving [] [] [] Simple [x] [] [] Multifactorial [x] [] [] Temporal [x] [] [] Thought Organization [] [] [] Divergent [x] [] [] Convergent [x] [] [] Sequencing [] [] [x] Reasoning [x] [] [] Analogies [x] [] [] Absurdities [x] [] [] Math [x] [] [] Assessment of Food Picture Menu: Pt does not need food picture menu at this time. Assessment Summary: Dysphagia: Patient demonstrates no overt signs/symptoms of aspiration with all consistencies tested. Patient denies hx of dysphagia/PNA and reports no concerns with current PO diet. Recommend continue IDDSI 7 Easy to chew diet with IDDSI 0 thin liquids. Meds as able. OVERHEAD CRANE TECHNICIAN will follow-up at bedside for diet tolerance. Communication: Patient presents with mild cognitive deficits in the area of short-term memory. OVERHEAD CRANE TECHNICIAN will follow. Prognosis: Good for improved function with skilled speech pathology services focusing on stated goals. Patient Education: Education provided to patient regarding: recommendations. Results and recommendations of this evaluation were communicated to: RN/Team Plan / Recommendations Continue IDDSI 7 Easy to chew diet with IDDSI 0 thin liquids. Meds as able. OVERHEAD CRANE TECHNICIAN will follow-up at bedside for diet tolerance and cognitive tx in the area of short-term memory. Dysphagia Goals: Patient will tolerate PO diet without overt signs/symptoms of aspiration. Communication Short Term Goals Patient will recall 3/3 unrelated words min cues 100% accuracy. [1] Patient Active Problem List Diagnosis Aphasia Stroke (CMS/HCC) HLD (hyperlipidemia) GERD (gastroesophageal reflux disease) JUAN DIEGO (obstructive sleep apnea) Former smoker Obesity Electrolyte abnormality Feeding difficulties Hypothyroid [2] No past medical history on file. [3] No past surgical history on file. * Significant Event - Shital Bishop APRN - 10/26/2024 9:58 AM EDT Pt had no acute events overnight, receiving PCU orders. No further ICU needs at this time, [facility] willsign off. Thank you for allowing us to participate in the care of this patient. Please feel free toconsult us for any further needs. Shital Bishop APRN [phone] * H&P - Everett Zhang APRN - 10/25/2024 8:54 PM EDTAssociated Order(s): Critical Care Post-Procedure Diagnose(s): Cerebrovascular accident (CVA), unspecified mechanism (CMS/HCC) Critical Care Performed by: Everett Zhang APRN Authorized by: Everett Zhang APRN Critical care provider statement: Critical care time (minutes): 55 Critical care was time spent personally by me on the following activities: Review of old charts, ordering and review of radiographic studies, ordering and review of laboratory studies, ordering and performing treatments and interventions, discussions with primary provider, evaluation of patient's re sponse to treatment, obtaining history from patient or surrogate and examination of patient 10/25/24 Edwin Cook Consulted for critical care management by * Surgery not found *. HPI Edwin Cook is a 69 y.o. male who presents with Stroke (CMS/HCC) Mr. Cook is a 69 year old male who arrives to the ICU for close neurological monitoring. He was txf from an OSH as a thrombectomy alert. His LKN was last night at 2200. His states he woke her up this morning with aphasia. She took him to the ED. She dropped him off at the front door confused. As she went to the park the car, he told the staff he had chest pain which he had not complained of at all. Once she got back to the room the ED was doing a stroke assessment. CT imaging demonstrates R MCA territory, occulusion of left P2 segment and possible left basal ganglia occulusion. Unknownhome medications at this time but can remember that his has issues with thyroid, hyperlipidemia , and possible esophageal cancer. He is admitted to the ICU for close neurological monitoring. [facility] consulted to assist in ICU level of care. Lines/Drains/Tubes: . Active . Name Placement date Placement time Site Days Peripheral IV 10/25/24 Left Antecubital 10/25/24 -- Antecubital less than 1 Peripheral IV 10/25/24 Left;Posterior Hand 10/25/24 2000 Hand less than 1 Last antibiotic: Patient recently received an antibiotic (last 12 hours) None Per the patient questionnaire: Patient answers are not available for this visit. Past Medical History: Active Ambulatory Problems Diagnosis Date Noted No Active Ambulatory Problems Resolved Ambulatory Problems Diagnosis Date Noted No Resolved Ambulatory Problems No Additional Past Medical History Past Surgical History: Surgical History[1] Home Medications: Prior to Admission medications Not on File Social History: Pt has has no history on file for tobacco use, alcohol use, and drug use. (details as available below) Social History Substance and Sexual Activity Alcohol Use Not on file Social History Substance and Sexual Activity Drug Use Not on file Tobacco Use History[2] Reviewed and otherwise non-contributory. Family History: Family History[3] Reviewed and otherwise non-contributory. Allergies: Allergies[4] GCS: [place] Coma Scale Score: 14 NIH Stroke Scale: 9 Review of Systems 14 point ROS reviewed and otherwise negative or unobtainable except as noted above or in HPI. Vital signs: Vitals: 10/25/24 1830 BP: Pulse: 56 Resp: Temp: SpO2: No intake or output data in the 24 hours ending 10/25/24 2100 Physical Exam: Sedation was held for the purposes of examination. Physical Exam Constitutional: Appearance: He is obese. HENT: Head: Normocephalic and atraumatic. Right Ear: External ear normal. Left Ear: External ear normal. Nose: Nose normal. Comments: NC Mouth/Throat: Mouth: Mucous membranes are dry. Eyes: Conjunctiva/sclera: Conjunctivae normal. Cardiovascular: Rate and Rhythm: Regular rhythm. Bradycardia present. Pulses: Normal pulses. Heart sounds: Normal heart sounds. Pulmonary: Breath sounds: Normal breath sounds. Abdominal: General: There is distension. Palpations: Abdomen is soft. Musculoskeletal: General: Swelling present. Cervical back: Neck supple. Skin: General: Skin is warm. Capillary Refill: Capillary refill takes 2 to 3 seconds. Neurological: Mental Status: He is alert. GCS: GCS eye subscore is 4. GCS verbal subscore is 4. GCS motor subscore is 6. Labs in last 18 hours: CBC WBC 12.09 (H) Hb 15.1 Plt 222 Hct 44.7 ANC 10.40 (H) INR 1.1, PTT 26, Anti-Xa ?? BMP Na 134 (L); 134 (L) Cl 100 BUN 7 (L) Glu 125 (H) K 3.0 (L) Co2 21 (L) Cr 0.83 Ca 7.9 (L) iCa 4.0 (L) Mg 1.7 (L), Phos 1.8 (L) Lactate ?? LFT AST 21 AlkPhos 75 T Prot 7.5 ALK 21 Bili 0.9 Alb ?? D.Bili ?? Imaging as available: No results found for this or any previous visit. Reviewed and agree with above. Assessment and Plan: This patient is critically ill. Medical Problems and Relevant Plans Hospital Problems POA * (Principal) Stroke (CMS/HCC) Unknown Overview Addendum 10/25/2024 8:52 PM by Everett Zhang APRN R MCA territory stroke Repeat CT scan of head pending LKN 2200 10/24/22 No thrombectomy SBP less than 220 Sodium goal 140-145 Keep HOB elevated NIHSS and neuro examinations per ICU protocol Will continue ongoing stroke education Aphasia Yes HLD (hyperlipidemia) Unknown Overview Signed 10/25/2024 8:52 PM by Everett Zhang APRN Continue statin GERD (gastroesophageal reflux disease) Unknown Overview Signed 10/25/2024 8:52 PM by Everett Zhang APRN Continue PPI JUAN DIEGO (obstructive sleep apnea) Unknown Overview Signed 10/25/2024 8:52 PM by Everett Zhang APRN Complicates all aspects of care. CPAP as appropriate Former smoker Not Applicable Overview Signed 10/25/2024 8:53 PM by Everett Zhang APRN Complicates all aspects of care. Obesity Unknown Overview Signed 10/25/2024 8:53 PM by Everett Zhang APRN Complicates all aspects of care. Electrolyte abnormality Unknown Overview Signed 10/25/2024 9:00 PM by Everett Zhang APRN Replace and trend per ICU protocol Feeding difficulties Unknown Overview Signed 10/25/2024 9:00 PM by Everett Zhang APRN Secondary to aphasia NG/OG as necessary for PO access Nutrition consulted for TF recs, appreciate coordination of care Tube feeding per nutritional recommendations via DHT OVERHEAD CRANE TECHNICIAN consult as indicated\ Everett Zhang APRN [1] No past surgical history on file. [2] Social History Tobacco Use Smoking Status Not on file Smokeless Tobacco Not on file [3] No family history on file. [4] Not on File * H&P - Nataliia Goldberg MBBS - 10/25/2024 7:00 PM EDT Stroke Consult/History and Physical Subjective HPI: Edwin Cook is a 69 y.o. right handed male with PMHx of hyperlipidemia, GERD, JUAN DIEGO, tobacco use disorder, obesity, new diagnosis of esophageal mass who transferred from outside hospital as a stroke alert. Patient was seen immediately on arrival. History was obtained from patient, family member (), emergency medical specialist, and medical records. Patient reportedly went to bed at 11:00 p.m. on 10/24/2024,. On the morning of 10/25, patient per was speaking gibberish, was very frustrated and could not communicate appropriately, for which shetook him to the outside hospital. In the ED patient mentioned that he had a chest pain and then wasimmediately triaged and taken for scans, which reveals a right parietal lobe hypodensity on the CT h ead suggestive of an ischemic stroke. CT angio was done, patient was shaking while in the scanner, poor contrast timing caused it to a poor study, there was concern of intracranial atherosclerotic disease and potential basilar tip thrombus and was transferred to ED for further management. LKN: 1000 10/24 Use of prior antiplatelet/anticoagulant agents: no BP on arrival: BP Readings from Last 1 Encounters: 10/25/24 (!) 197/90 Fingerstick blood glucose: 133 (H) INR: 1.1 Platelets: 215 Candidate for IV thrombolysis: Patient is not a candidate for thrombolytics. Contraindications: Outside the 3-4.5 hour window Candidate for thrombectomy No, Patient was ineligible (no emergent large vessel occlusion) 14-Point Review of systems: All negative Past Medical History: He has no past medical history on file. Surgical History: He has no past surgical history on file. Family History: He has a family history is not on file. Social History: He has no history on file for tobacco use, alcohol use, and drug use. Allergies: Patient has no allergy information on record. Medications: Medications Ordered Prior to Encounter[1] Objective Vitals: Personally reviewed and interpreted Visit Vitals BP (!) 197/90 (BP Location: Right arm, Patient Position: Lying) Pulse 56 Temp 37.6 ??C (99.7 ??F) (Axillary) Wt 126 kg (278 lb 3.5 oz) SpO2 96% Physical Exam: General: NAD, male HEENT: Normocephalic, atraumatic RS: Nonlabored breathing, None (Room air) CVS: Sinus rhythm GI: abdomen nondistended, nontender to palpation MSK: no joint effusions, no bony malformations Skin: no rashes or skin lesions PSYCH: Unable to assess Neurological: Mental Status: alert, interactive, follows instructions intermittently Speech: Patient is able to read appropriately however repetition is impaired, comprehension is poor, fluency is intact CN: Pupil: equal, round, reactive to light and accommodation I - deferred II - VF: Patient has some left-sided hemianopsia for conference mentation, unable to perform exam appropriately as patient was moving his eyes around a lot III, IV, - EOM intact; no gaze deviation/preference; V - Facial sensation: Grossly intact to touch VII - Facial movements: Normal and symmetric VIII - Auditory acuity intact to conversation IX, X - Palate elevated normally, uvula midline XI - Movement and strength are normal for age XII - Tongue Midline and protrudes normally Motor: RUE: 5/5 LUE: 5/5 RLE: 5/5 LLE: 5/5 Sensory: Intact to fine touch and pinprick Coordination: Patient able to reach for objects without any ataxia unable to follow instructions appropriately Gait: HAI Labs in last 18 hours Follow lab values were personally reviewed by me and interpreted according to the clinical context. Stroke labs: HbA1c:No results found for requested labs within last 365 days.; LDL:No results found for requested labs within last 365 days.; TSH:No results found for requested labs within last 365 days. CBC: CBC WBC 11.74 (H) Hb 15.8 Plt 215 Hct 46.3 ANC 9.65 (H) BMP: BMP Na 131 (L) Cl 97 BUN 8 Glu 133 (H) K 3.5 (L) Co2 21 (L) Cr 0.94 Ca 8.6 (L) iCa ?? Mg ??, Phos ?? LFT: LFT AST 21 AlkPhos 75 T Prot 7.5 ALK 21 Bili 0.9 Alb ?? D.Bili ?? TroponinsT: 0-hour/2-hours 15/No results found for requested labs within last 365 days. Delta,Interpretation : No results found for requested labs within last 365 days. Coag Lab: INR 1.1, PTT 27, Anti-Xa ?? a/vBG: pH/pCO2/pO2/HCO3/SpO2: No results found for requested labs within last 365 days. Lactate: ?? Micro: Results No results found for the last 48 hours. Radiologic Exams: Viz Utilized: Yes CT head/CTA head/neck findings: Evolving infarct in the right MCA territory, patient has critical stenosis in the right M1 segment, reduced caliber of the right M2 segment, occlusion of the left P2, poor opacification of the tip of the basilar Case was discussed with ADITYA Attending Dr: Tyree, regional trainer. NIH Stroke Scale Interval: On arrival Date: 10/25/24 Time: 7:00 PM Person Administering Scale: RACHAEL Barlow. Administer stroke scale items in the order listed. Record performance in each category after each subscale exam. Do not go back and change scores. Follow directions provided for each exam technique. Scores should reflect what the patient does, not what the clinician thinks the patient can do. The clinician should record answers while administering the exam and work quickly. Except where indicated, the patient should not be coached (i.e., repeated requests to patient to make a special effort). 1a Level of consciousness: 0=alert; keenly responsive 1b. LOC questions: 0=Performs both tasks correctly 1c. LOC commands: 0=Performs both tasks correctly 2. Best Gaze: 0=normal 3. Visual: 1=Partial hemianopia 4. Facial Palsy: 0=Normal symmetric movement 5a. Motor left arm: 0=No drift, limb holds 90 (or 45) degrees for full 10 seconds 5b. Motor right arm: 0=No drift, limb holds 90 (or 45) degrees for full 10 seconds 6a. motor left le=No drift, limb holds 90 (or 45) degrees for full 10 seconds 6b Motor right le=No drift, limb holds 90 (or 45) degrees for full 10 seconds 7. Limb Ataxia: 0=Absent 8. Sensory: 0=Normal; no sensory loss 9. Best Language: 2=Severe Aphasia; fragmentary expression, unintelligible response 10. Dysarthria: 1=Mild to moderate, patient slurs at least some words and at worst, can be understood with some difficulty 11. Extinction and Inattention: 1=Visual, tactile, auditory, spatial or personal inattention or extinction to bilateral simultaneous stimulation in one of the sensory modalities Total: 5 ICH Score if applicable: Score/NA: Not Applicable Pre-morbid mRS: 1 No significant disability despite symptoms; able to carry out all usual duties and activities Assessment/Plan Edwin Cook is a 69 y.o. male with PMH of hyperlipidemia, GERD, JUAN DIEGO, new diagnosis of esophagealmass hypothyroidism, tobacco use disorder, obesity presenting with speech difficulty. LKN was 1100 10/24 #Aphasia, likely transcortical sensory patient #Acute ischemic stroke, R inferior M2 division infarct #ICAD #Acute encephalopathy #Leukocytosis #Concern for basilar tip thrombus #Limited mobility 2/2 stroke #Feeding difficulties 2/2 stroke #Speech difficulties 2/2 stroke LNK: 1100 10/24; Initial NIHSS: 5 Interventions: tPA: no. MT: No Risk factors: age, hyperlipidemia, hypertension, and smoking Mechanism: Large artery atherosclerosis Home secondary prevention measures: Unclear which statin patient is on at, reportedly does not takebaby aspirin over the past few years Imaging: -CTH: Evolving infarct in the right MCA territory -CTA H/N: critical stenosis in the right M1 segment, reduced caliber of the right M2 segment, occlusion of the left P2, poor opacification of the tip of the basilar Recommendations/Plan: Blood pressure goals: Permissive HTN for first 24 hrs, PRN > 220 SBP Sodium Goals: Normal Stroke Workup, pending: Consults: PT, OT, OVERHEAD CRANE TECHNICIAN Labs/Studies (if not done in the ER): CBC, CMP, HbA1c, Lipid profile, and TSH Imaging: MRI brain w/o contrast and TTE w/o bubble Neuro checks: with NIHSS per protocol Dysphagia Screen: Passed Neuropsychology screening for depression/cognition prior to discharge Stroke Education Smoking cessation: Pending improving Secondary prevention measures: -Statins:Atorvastatin 40mg -Antiplatelet: Aspirin and Clopidogrel History of new diagnosed esophageal mass -patient's unclear about the true history Obstructive sleep apnea: Reportedly uses CPAP at home Tobacco use disorder: NAD as needed Hypertension: Permissive hypertension in the 1st 24 hours, restart home meds as appropriate Hypothyroidism: Restart home meds as appropriate, free T4 and T3 ordered. Elevated TSH Hyperlipidemia: Per patient is on a statin unclear which one, started atorvastatin while inpatient Thank you for this consult. Stroke neurology will admit the patient to ICU. This patient was discussed with the attending on service Dr. Brown. Code status: No Order Fluids: PO Electrolyte: Monitoring and replacing PRN Nutrition/Diet: Regular diet DVT Ppx: holding, start on 10/26 PT/OT Recs: pending OVERHEAD CRANE TECHNICIAN Recs: pending RACHAEL Dodd, Resident, Neurology Secure Chat/Pager: [phone] 10/25/2024 7:00 PM Dictation software disclaimer: Parts of this note was generated using voice dictation software. Although proofread, there may be spelling errors, changes in dictated words, and words inserted which may have been misinterpreted by voice dictation software. Meaning of words may require interpretationin the appropriate context of the sentence and clinical situation. [1] No current facility-administered medications on file prior to encounter. No current outpatient medications on file prior to encounter. Cosigned by Lyudmila Clements MD at 10/27/2024 1:29 PM EDT Associated attestation - Lyudmila Clements MD - 10/27/2024 1:29 PM EDT I discussed the case with the resident/fellow and agree with the findings and plan as documented. * ED Provider Notes - Fransico Oates MD - 10/25/2024 5:35 PM EDT Images from the original note were not included. - HPI Chief Complaint Patient presents with Stroke Alert Edwin Cook is a 69-year-old male with unknown past medical history who presents to the emergency department as transfer from outside hospital with concern for stroke. Last known normal was sometime last night, the patient is having dysarthria, mild facial droop, word salad. Patient History Past Medical History[1] Surgical History[2] Family History[3] Social History[4] Allergies: Allergies[5] Physical Exam ED Triage Vitals Temp Heart Rate Resp BP 10/25/24 1804 10/25/24 1759 10/25/24 1759 10/25/24 1804 37.6 ??C (99.7 ??F) 58 (!) 28 (!) 197/90 SpO2 Temp Source Heart Rate Source Patient Position 10/25/24 1759 10/25/24 1804 -- 10/25/24 180 98 % Axillary Lying BP Location FiO2 (%) 10/25/24 180 -- Right arm Physical Exam EASI ?? Total Score: 0 [place] Coma Scale Score: 13 NIH Stroke Scale: 5 ED Course & MDM - Assessment: 69 y.o. male presents to ED with complaint of stroke. It should be noted that the chronic conditions includes hypertension, which currently is not at goal therapy. This complicates the clinical picture because it Comorbidities: may be exacerbating symptoms and increases the amount and complexity ofdata to be reviewed Differential Diagnosis: Ischemic stroke, hemorrhagic stroke, complex migraine In order to fully explore the differential diagnosis the following treatments and tests were ordered: ED Medication Administration from 10/25/2024 1616 to 10/25/2024 1837 Date/Time Order Dose Route Action 10/25/2024 1743 EDT iohexol (OMNIPaque) 350 MG/ML injection 100 mL 60 mL Intravenous Given All Other Orders Ordered Status Ordering Provider 10/25/241836 Vital Signs Every 8 hours Acknowledged NATALIIA GOLDBERG 10/25/241836 Check pulse oximetry Every 12 hours Acknowledged NATALIIA GOLDBERG 10/25/241836 Lipid panel Morning draw Comments: Stroke Collected NATALIIA GOLDBERG 10/25/241836 Intake and output Every 8 hours [facility] [place] 10/25/241832 Troponin T, High Sensitivity, 2 Hour, Plasma PROCEDURE ONCE Comments: Stroke Alert Collected FRANSICO OATES 10/25/241836 Vital Signs Every 4 hours Acknowledged ABEL GOLDBERG [place] 10/25/241836 Check pulse oximetry Every 4 hours Acknowledged ABEL GOLDBERG [place] 10/25/241836 Daily weights Daily Comments: Weight patient on arrival and daily. Acknowledged NATALIIA GOLDBERG 10/25/241836 Admit to inpatient Once Acknowledged [facility] [place] 10/25/241836 Adult diet Diet texture: Regular Diet effective now Acknowledged [facility] [place] 10/25/241836 Okay To Give Nicotine Replacement Until discontinued Acknowledged [facility] [place] 10/25/241836 Unable to Assess Until discontinued Completed ABEL GOLDBERG [place] 10/25/241836 Mobility Orders Until discontinued A[facility] [place] 10/25/241836 Sequential compression device Until discontinued Comments: SCDs must be in place and turned on EXCEPT when ACTIVELY ambulating. Acknowledged ABEL GOLDBERG [place] 10/25/241836 Notify physician (specify parameters) Until discontinued Acknowled[facility] [place] 10/25/241836 Neuro checks Until discontinued Comments: Including pupil checks, every 2 hours for 48 hours; then every 4 hours x 24 hrs. After initial 72 hrs, NIH should be assessed every 12 hours and with any acute neurological change until discharge. Acknowledged NATALIIA GOLDBERG 10/25/241836 NIH Stroke Scale Until discontinued Comments: Every 2 hours for 48 hours; then every 4 hours x 24 hrs. After initial 72 hrs, NIH shouldbe assessed every 12 hours and with any acute neurological change until discharge. Acknowledged NATALIIA GOLDBERG 10/25/24 1837 Dysphagia screen Once Comments: Prior to ANY PO intake (including medications, ice chips, food or fluids). Acknowledged NATALIIA GOLDBERG 10/25/24 1837 Telemetry Monitoring for Acute Stroke or Cerebrovascular Disease Until discontinued Acknowledged NATLAIIA GOLDBERG 10/25/24 1837 Insert peripheral IV Once Placed in And Linked Group Acknowledged NATALIIA GOLDBERG 10/25/24 183 Saline lock IV Once Placed in And Linked Group Acknowledged NATALIIA GOLDBERG 10/25/24 1837 Patient education (specify) Other (enter comments) Once Comments: Stroke packet diagnosis specific and risk factor education. Acknowledged NATALIIA GOLDBERG 10/25/24 1837 PT eval and treat Until therapy completed Acknowledged NATALIIA GOLDBERG 10/25/24 1837 OT eval and treat Until therapy completed Comments: Stroke Rehab Acknowledged NATALIIA GOLDBERG 10/25/24 1837 OVERHEAD CRANE TECHNICIAN eval and treat Until therapy completed Acknowledged NATALIIA GOLDBERG 10/25/24 183 Inpatient Consult for [facility] Neurocognitive Screening Once Provider: (Not yet assigned) Acknowledged NATALIIA GOLDBERG 10/25/24 183 Hemoglobin A1c Once Comments: Stroke Acknowledged NATALIIA GOLDBERG 10/25/24 1837 TSH Once Comments: Stroke In process NATALIIA GOLDBERG 10/25/24 1742 POCT glucose meter PROCEDURE ONCE Final result POCT, GENERIC PROVIDER 10/25/24 1739 Oxygen Therapy - Device: Nasal Cannula Continuous Comments: Oxygen per nursing protocol to maintain oxygen saturations above 94% Order ID Start Status Ordering Provider [id number] 10/25/24 1740 Completed FRANSICO OATES [id number] 10/25/241999 Acknowledged FRANSICO OATES [id number] 10/26/24 0800 Acknowledged FRANSICO OATES 10/26/241999 Scheduled FRANSICO OATES 10/27/24 0800 Scheduled FRANSICO OATES 10/27/241999 Scheduled FRANSICO OATES 10/28/24 0800 Scheduled FRANSICO OATES 10/28/241999 Scheduled FRANSICO OATES 10/29/24 0800 Scheduled FRANSICO OATES 10/29/24 2000 Scheduled FRANSICO OATES W Acknowledged FRANSICO OATES 10/25/[address] Brain Perfusion Once Acknowledged FRANSICO OATES 10/25/24 173 Hepatitis C Antibody - ED Once In process FRANSICO OATES 10/25/24 1739 ED Protocol - HIV 1/2 Antibody/Antigen Screen Once Final result FRANSICO OATES 10/25/24 1740 ED HIV 1/2 Antibody/Antigen Screen w/Reflex to HIV 1/2 Differentiation PROCEDURE ONCE Final result FRANSICO OATES 10/25/24 1739 Until discontinued Canceled FRANSICO OATES 10/25/24 1739 Insert peripheral IV Once Completed FRANSICO OATES 10/25/24 1739 Diet effective now Canceled FRANSICO OATES 10/25/24 173 POCT glucose Once Acknowledged FRANSICO OATES 10/25/24 1739 CBC with Diff STAT Comments: Stroke Alert Final result FRANSICO OATES 10/25/24 1739 Prothrombin Time STAT Comments: Stroke Alert Final result FRANSICO OATES 10/25/24 1739 Anti Xa Level Unfractionated Heparin STAT Comments: Stroke Alert Final result FRNASICO OATES 10/25/24 1739 APTT (PTT) STAT Comments: Stroke Alert Final result FRANSICO OATES 10/25/24 173 Comprehensive Metabolic Panel STAT Comments: Stroke Alert Final result FRANSICO OATES 10/25/24 1739 Troponin now and 120 min STAT Comments: Stroke Alert Final result FRANSICO OATES 10/25/[address] Head wo IV contrast Once Final result FRANSICO OATES 10/25/[address] Angio Head Once Comments: The field above indicates approval for Radiology techs to use department protocols. Any changes will be communicated directly to the Ordering Service. Final result FRANSICO OATES 10/25/[address] Angio Neck Once Comments: The field above indicates approval for Radiology techs to use department protocols. Any changes will be communicated directly to the Ordering Service. Final result FRANSICO OATES 10/25/24 1739 ECG Adult Once Comments: Special Instructions: After CT Scan is completed upon arrival to room Preliminary result FRANSICO OATES 10/25/24 173 Consult to Neurology Once Specialty: Neurology Provider: (Not yet assigned) Acknowledged FRANSICO OATES [place] 10/25/24 1739 Stroke Alert Activation Notification Once Acknowledged FRANSICO OATES ED Course as of 10/25/241904 Sat Oct 25, 2024 190 Laboratory workup personally interpreted by me shows mild leukocytosis, no significant anemia,mild hyponatremia [MM] 1904 CT scan results reviewed by me included below. Evolving ischemic infarct of the right MCA territory. Subcentimeter hypodensity in the left basal ganglia suggestive of a age- indeterminate lacunar infarct. Significant critical stenosis of the right M1 segment.There is reduced caliber of the right M2 segment superior branch. Occlusion of the left P2 segment [employer] (series 3 image 1 5). [MM] ED Course User Index [MM] Fransico Oates MD Ultimately, this patient was Was admitted (Admission) There were no encounter diagnoses.. Patient believed to require admission for the listed diagnoses. The Neurology service was consulted for admission and was agreeable to admit to ICU. ED Prescriptions None Disposition Admit Admitting/Attending Physician: DEIDRE BROWN [[id number]] Provider Care Team: [facility] ICU [105] Are they the primary team?: Yes [1] - [1] No past medical history on file. [2] No past surgical history on file. [3] No family history on file. [4] [5] Not on File Fransico Oates MD Resident 10/25/241907 Cosigned by Scott Rankin MD at 10/27/2024 9:43 AM EDT Associated attestation - Scott Rankin MD - 10/27/2024 9:43 AM EDT I saw and evaluated the patient with the resident/fellow. I discussed the case with the resident/fellow and agree with the findings and plan as documented. * ED Triage Notes - Robin Johnson RN - 10/25/2024 5:35 PM EDT PT was seen at [facility] for a complaint of chest pain. While there, they observedhim having LT side facial droop and dysarthria. His LKN was some time last night before going to bed. OSH scanned and had concern for M2 occlusion but PT was moving during scan and unable to hold still. [facility] transported him to ER inpatient CT scanner. EMS advised that his HR was frequently in the 40's and PT speech got worse over time. GCS 13 on arrival. documented in this encounter Plan of Treatment Upcoming Encounters Date Type Department Care Team (Late st Contact Info) Description 01/21/2025 9:20 AM EDT Office Visit [facility] [address] [place] [address] Nissa Herzog PA [address] [place] [address] 06/10/2025 9:00 AM EST Office Visit [facility] [address] [place] [address] Korey Fernandes MD [address] [place] [address] Pending Results Name Type Priority Associated Diagnoses Date /Time Adult Patch Monitor - 14 Day Cardiac Services Routine Cerebrovascular accident (CVA), unspecified mechanism (CMS/HCC) 10/27/2024 3:04 PM EDT Scheduled Orders Name Type Priority Associated Diagnoses Orde r Schedule Adult Patch Monitor - 14 Day Cardiac Services Routine Cerebrovascular accident (CVA), unspecified mechanism (CMS/HCC) Once for 1 Occurrences starting 10/27/2024 until 10/27/2024 Scheduled Referrals Name Type Priority Associated Diagnoses Order Schedule Discharge Ambulatory referral to Neurology Outpatient Referral Routine Aphasia 1 Occurrences starting 10/27/2024 until 04/30/2026 Discharge Ambulatory referral to Neurology Outpatient Referral Routine Aphasia 1 Occurrences starting 10/27/2024 until 04/30/2026 Discharge Ambulatory referral to [facility] Outpatient Referral Routine Aphasia 1 Occurrences starting 10/27/2024 until 04/30/2026 documented as of this encounter Procedures Procedure Name Priority Date/Time Associated Diagnosis Comments ECHO, ADULT TRANSTHORACIC COMPLETE Routine 10/27/2024 11:05 AM EDT SODIUM, PLASMA Timed 10/27/2024 6:53 AM EDT IONIZED CALCIUM, WHOLE BLOOD Routine 10/27/2024 12:53 AM EDT CBC W/O DIFFERENTIAL Routine 10/27/2024 12:53 AM EDT SODIUM, PLASMA Timed 10/27/2024 12:53 AM EDT PHOSPHORUS, PLASMA Routine 10/27/2024 12 :53 AM EDT MAGNESIUM, PLASMA Routine 10/27/2024 12: 53 AM EDT BASIC METABOLIC PANEL, PLASMA Routine 10/27/2024 12:53 AM EDT MR HEAD WO IV CONTRAST STAT 9:40 PM EDT SODIUM, PLASMA Timed 10/26/2024 6:33 PM EDT SODIUM, PLASMA Timed 10/26/2024 12:40 PM EDT OXYGEN THERAPY STAT 10/26/2024 8:00 AM EDT XR ABDOMEN 1 VIEW Routine 10/26/2024 5:[address] HEAD WO IV CONTRAST Timed 4:49 AM EDT IVORY AURIS SURVEILLANCE BY PCR Routine 10/26/2024 3:43 AM EDT IONIZED CALCIUM, WHOLE BLOOD Routine 10/26/2024 3:43 AM EDT MULTI DRUG RESISTANCE TEST Routine 10/26/2024 3:43 AM EDT T3 Routine 10/26/2024 3:43 AM EDT CBC W/O DIFFERENTIAL Routine 10/26/2024 3:43 AM EDT PHOSPHORUS, PLASMA Routine 10/26/2024 3: 43 AM EDT MAGNESIUM, PLASMA Routine 10/26/2024 3:4 3 AM EDT BASIC METABOLIC PANEL, PLASMA Routine 10/26/2024 3:43 AM EDT TROPONIN T, HIGH SENSITIVITY, 2 HOUR, PLASMA Timed 10/25/2024 10:54 PM EDT [facility] CRITICAL CARE, E/M 30-74 MINUTES Routine 10/25/2024 8:54 PM EDT Cerebrovascular accident (CVA), unspecified mechanism (CMS/HCC) TROPONIN T, HIGH SENSITIVITY, 0 HOUR, PLASMA, REFLEX TO 2 HOUR STAT 10/25/2024 8:11 PM EDT IONIZED CALCIUM, WHOLE BLOOD Routine 10/25/2024 8:11 PM EDT APTT STAT 10/25/2024 8:11 PM EDT PROTHROMBIN TIME(PT) / INR STAT 10/25/2024 8:11 PM EDT CBC WITH AUTO DIFFERENTIAL STAT 10/25/2024 8:11 PM EDT TYPE AND SCREEN Routine 10/25/2024 8:11 PM EDT FREE T4, PLASMA Routine 10/25/2024 8:11 PM EDT SODIUM, PLASMA Timed 10/25/2024 8:11 PM EDT BASIC METABOLIC PANEL, PLASMA STAT 10/25/2024 8:11 PM EDT POCT GLUCOSE METER UNSOLICITED RESULTS Routine 10/25/2024 8:02 PM EDT OXYGEN THERAPY STAT 10/25/2024 8:00 PM EDT TROPONIN T, HIGH SENSITIVITY, 2 HOUR, PLASMA Timed 10/25/2024 7:03 PM EDT SODIUM, PLASMA Timed 10/25/2024 7:03 PM EDT PHOSPHORUS, PLASMA Routine 10/25/2024 7: 03 PM EDT MAGNESIUM, PLASMA Routine 10/25/2024 7:0 3 PM EDT LIPID PROFILE, PLASMA Routine 10/25/2024 7:03 PM EDT BASIC METABOLIC PANEL, PLASMA Routine 10/25/2024 7:03 PM EDT TSH Routine 10/25/2024 6:40 PM EDT ECG ADULT STAT 10/25/2024 6:34 PM EDT ED HIV 1/2 ANTIBODY/ANTIGEN SCREEN WITH REFLEX TO HIV I/II DIFFERENTIATION STAT 10/25/2024 6:02 PM EDT ED PROTOCOL HIV 1/2 ANTIBODY/ANTIGEN SCREEN W/REFLEX TO HIV 1/2 ANTIBODY DIFFERENTIATION STAT 10/25/2024 6:02 PM EDT TROPONIN T, HIGH SENSITIVITY, 0 HOUR, PLASMA, REFLEX TO 2 HOUR STAT 10/25/2024 6:02 PM EDT HEPATITIS C ANTIBODY - ED W/REFLEX TO HCV QUANT PCR STAT 10/25/2024 6:02 PM EDT APTT STAT 10/25/2024 6:02 PM EDT PROTHROMBIN TIME(PT) / INR STAT 10/25/2024 6:02 PM EDT ANTI XA LEVEL UNFRACTIONATED HEPARIN STAT 10/25/2024 6:02 PM EDT CBC WITH AUTO DIFFERENTIAL STAT 10/25/2024 6:02 PM EDT HEMOGLOBIN A1C Add-On 10/25/2024 6:02 PM EDT COMPREHENSIVE METABOLIC PANEL, PLASMA STAT 10/25/2024 6:[address] ANGIO NECK STAT 10/25/2024 5:[address] HEAD WO IV CONTRAST STAT 5:[address] ANGIO HEAD STAT 10/25/2024 5:57 PM EDT POCT GLUCOSE METER UNSOLICITED RESULTS Routine 10/25/2024 5:42 PM EDT OXYGEN THERAPY STAT 10/25/2024 5:40 PM EDT OXYGEN THERAPY STAT 10/25/2024 5:40 PM EDT OXYGEN THERAPY STAT 10/25/2024 5:40 PM EDT documented in this encounter Results * ECHO, ADULT TRANSTHORACIC COMPLETE (10/27/2024 11:05 AM EDT) [facility] Signature BSA 2.41 m2 ANGIE ISCV Height 183.0 ANGIE ISCV Weight 121.0 ANGIE ISCV LVIDd 48 mm ANGIE ISCV LVIDs 34 mm ANGIE ISCV IVSd 13 mm ANGIE ISCV LVPWd 14 mm ANGIE ISCV LV MASS(C)D 259 g ANGIE ISCV [facility] CV ECHO LV MASS INDEX 107 g/m2 ANGIE ISCV LV RWT 0.56 mm ANGIE ISCV LV EDV(MOD-4ch) 167 mL ANGIE ISCV LV ESV(MOD4ch) 46 mL ANGIE ISCV EF(MOD-sp4) 72 % ANGIE ISCV LV EDV(MOD-2ch) 140 mL ANGIE ISCV LV ESV(MOD2ch) 41 mL ANGIE ISCV EF(MOD-sp2) 71 % ANGIE ISCV EDV(MOD-bp) 154 mL ANGIE ISCV ESV(MOD-bp) 44 mL ANGIE ISCV EF(MOD-bp) 72 % ANGIE ISCV MV E Vmax 76.5 cm/s ANGIE ISCV MV A Vmax 56.6 cm/s ANGIE ISCV MV E/A 1.4 cm/s ANGIE ISCV TR Vmax 134.5 cm/s ANGIE ISCV LA dimension 49 mm ANGIE ISCV TAPSE 24 mm ANGIE ISCV TR Max PG 7 mmHG ANGIE ISCV PA acc time 140 msec ANGIE ISCV mean PAP 16 mmHg ANGIE ISCV MV dec time 230 ms ANGIE ISCV MV P1/2t 67 ms ANGIE ISCV MVA(P1/2t) 3.3 cm2 ANGIE ISCV Ao Root Diam 35 mm ANGIE ISCV PA NH(ACCEL) 16.4 mmHg ANGIE ISCV LVLs ap2 6.4 mm ANGIE ISCV Asc Ao Diam 37 mm ANGIE ISCV LAV(MOD-bp) Indexed 29 mL/m2 ANGIE ISCV LAV(MOD-4ch) 82 mL ANGIE ISCV LAV(MOD-2ch) 59 mL ANGIE ISCV RV s' Amando 16.6 cm/s ANGIE ISCV Anatomical Region Laterality Modality Echocardiography Narrative 10/27/2024 1:35 PM EDT The left ventricle is normal size. There is concentric remodeling. The left ventricular systolic function is normal. The LVEF is visually estimated at 60 - 70%. The right ventricle is normal in size. The right ventricular systolic function is normal. The left atrium is dilated by visual assessment. There is no recent study available for direct [id number]-[id number] comparison. Left Ventricle The left ventricle is normal size. There is concentric remodeling. The left ventricular systolic function is normal. The LVEF is visually estimated at 60 - 70%. Unable to assess diastolic function due to poor image quality. No regional wall motion abnormalities are seen. Right Ventricle The right ventricle is normal in size. The right ventricular systolic function is normal. The estimated global right ventricular systolic function based upon the tricuspid annular plane of systolic excursion (TAPSE) is normal (>=17 mm). The estimated global right ventricular systolic function based upon the TDI maximal systolic velocity is normal (>=9.5 cm/s). The spectral Doppler envelope of TR is not adequate for calculating the right ventricular systolic pressure (RVSP). Based upon other 2D and Doppler features, the RVSP is probably normal or at most mildly elevated. Left Atrium The left atrium is dilated by visual assessment. The interatrial septum is intact with no evidence for an atrial septal defect. Right Atrium The right atrial size is normal. IVC/SVC Based on the IVC size and respiratory variation, the estimated right atrial pressure is 8mmHg. Mitral Valve The mitral valve leaflets are normal in appearance with no evidence of mitral valve prolapse. There is no mitral regurgitation. There is no mitral stenosis. Tricuspid Valve The tricuspid valve is normal in appearance. There is no tricuspid regurgitation. There is no tricuspid stenosis. Aortic Valve The aortic valve appears to be trileaflet. There is no valvular regurgitation. There is no hemodynamically significant valvular aortic stenosis. Pulmonic Valve The pulmonic valve is normal in appearance. There is no pulmonic regurgitation. There is no pulmonic stenosis. Pericardium No pericardial effusion. Great Vessels The aortic root is normal in size. In the maximally visualized portion, the ascending aorta appears mildly dilated. In the maximally visualized portion, the aortic arch appears normal in size. The main pulmonary artery is not well visualized. Study Details A complete transthoracic echocardiogram using two-dimensional (2D), m-mode, color and spectral flow Doppler imaging was performed. During the study the apical, parasternal, subcostal and suprasternal view was captured. Overall the study quality was adequate. Height: 183.0 cm. Weight: 121.0 kg. BSA: 2.41 m2. Study Recommendation There is no recent study available for direct [id number] comparison. Everett Zhang APRN CV ECHO PROCEDURES Final Result * Sodium, Plasma (10/27/2024 6:53 AM EDT) Sodium, Plasma 138 136 - 145 mmol/L 10/27/2024 7:20 AM EDT [facility] Blood Venous blood specimen / Unknown Venipuncture / Unknown 10/27/2024 6:53 AM EDT 10/27/2024 6:56 AM EDT Everett Zhang APRN LAB BLOOD ORDERABLES Elena l Result [facility] [address] [place] [address] * Sodium, Plasma (10/27/2024 12:53 AM EDT) Sodium, Plasma 139 136 - 145 mmol/L 10/27/2024 1:27 AM EDT [facility] Blood Venous blood specimen / Unknown Venipuncture / Unknown 10/27/2024 12:53 AM EDT 10/27/2024 12:57 AM EDT Everett Zhang SENIOR PHARMACY TECHNICIAN LAB BLOOD ORDERABLES Elena l Result [facility] [address] [place] [address] * CBC W/O Differential (10/27/2024 12:53 AM EDT) Pathologist [facility] WBC Count 8.68 3.70 - 10.30 10*3/uL LAB HEMATOLOGY METHOD 10/27/2024 1:05 AM EDT [facility] RBC Count 4.85 4.60 - 6.10 10*6/uL LAB HEMATOLOGY METHOD 10/27/2024 1:05 AM EDT [facility] HGB 14.0 13.7 - 17.5 g/dL LAB HEMATOLOGY METHOD 10/27/2024 1:05 AM EDT [facility] HCT 42.9 40.0 - 51.0 % LAB HEMATOLOGY METHOD 10/27/2024 1:05 AM EDT [facility] Platelet Count 194 155 - 369 10*3/uL LAB HEMATOLOGY METHOD 10/27/2024 1:05 AM EDT [facility] MCV 89 79 - 98 fL LAB HEMATOLOGY METHOD 10/27/2024 1:05 AM EDT [facility] MCH 28.9 26.0 - 32.0 pg LAB HEMATOLOGY METHOD 10/27/2024 1:05 AM EDT [facility] MCHC 32.6 30.7 - 35.5 g/dL LAB HEMATOLOGY METHOD 10/27/2024 1:05 AM EDT [facility] RDW 13.2 11.5 - 14.5 % LAB HEMATOLOGY METHOD 10/27/2024 1:05 AM EDT [facility] MPV 10.4 8.8 - 12.5 fL LAB HEMATOLOGY METHOD 10/27/2024 1:05 AM EDT [facility] nRBC 0.0 <=0.0 per 100 WBCs LAB HEMATOLOGY METHOD 10/27/2024 1:05 AM EDT [facility] Blood Venous blood specimen / Unknown Venipuncture / Unknown 10/27/2024 12:53 AM EDT 10/27/2024 12:57 AM EDT Everett Zhang SENIOR PHARMACY TECHNICIAN LAB BLOOD ORDERABLES Elena l Result [facility] [address] [place] [address] * (ABNORMAL) Basic Metabolic Panel, Plasma (10/27/2024 12:53 AM EDT) Glucose, Plasma 91 74 - 99 mg/dL 10/27/2024 1:27 AM EDT [facility] BUN, Plasma 11 8 - 23 mg/dL 10/27/2024 1:27 AM EDT [facility] Creatinine, Plasma 1.02 0.70 - 1.20 mg/dL 10/27/2024 1:27 AM EDT [facility] BUN/Creatinine Ratio 11 10/27/2024 1:27 AM EDT [facility] Sodium, Plasma 139 136 - 145 mmol/L 10/27/2024 1:27 AM EDT [facility] Potassium, Plasma 3.8 3.6 - 4.9 mmol/L 10/27/2024 1:27 AM EDT [facility] Chloride, Plasma 104 97 - 107 mmol/L 10/27/2024 1:27 AM EDT [facility] CO2, Plasma 25 22 - 29 mmol/L 10/27/2024 1:27 AM EDT [facility] Anion Gap 10 6 - 16 mmol/L 10/27/2024 1:27 AM EDT [facility] Total Calcium, Plasma 8.6(L) 8.9 - 10.2 mg/dL 10/27/2024 1:27 AM EDT [facility] eGFRcr 79.1 mL/min/1.7 3m*2 10/27/2024 1:27 AM EDT [facility] Comment:Reported eGFRcr in m L/min/1.73m2 is based the CKD-EPI 2020 equation that does not use a race coefficient. Blood Venous blood specimen / Unknown Venipuncture / Unknown 10/27/2024 12:53 AM EDT 10/27/2024 12:57 AM EDT Everett Zhang APRN LAB BLOOD ORDERABLES Elena l Result [facility] [address] [place] [address] * Magnesium, Plasma (10/27/2024 12:53 AM EDT) Magnesium, Plasma 2.3 1.9 - 2.4 mg/dL 10/27/2024 1:27 AM EDT [facility] Blood Venous blood specimen / Unknown Venipuncture / Unknown 10/27/2024 12:53 AM EDT 10/27/2024 12:57 AM EDT Everett Zhang APRN LAB BLOOD ORDERABLES Elena l Result Performing Organization Address [facility] Co de Phone Number [facility] [address] [place] [address] * Phosphorus, Plasma (10/27/2024 12:53 AM EDT) Phosphorus, Plasma 3.4 2.5 - 4.5 mg/dL 10/27/2024 1:27 AM EDT [facility] Blood Venous blood specimen / Unknown Venipuncture / Unknown 10/27/2024 12:53 AM EDT 10/27/2024 12:57 AM EDT Everett Tuan Zhang SENIOR PHARMACY TECHNICIAN LAB BLOOD ORDERABLES Elena l Result Performing Organization Address City/[facility]/ZIP Co de Phone Number [facility] [address] [place] [address] * (ABNORMAL) Ionized calcium, whole blood (10/27/2024 12:53 AM EDT) Ionized Calcium, Whole Blood 4.0(L) 4.6 - 5.1 mg/dL LAB HEMATOLOGY METHOD 10/27/2024 12:58 AM EDT [facility] Blood Venous blood specimen / Unknown Venipuncture / Unknown 10/27/2024 12:53 AM EDT 10/27/2024 12:57 AM EDT us Everett Zhang SENIOR PHARMACY TECHNICIAN LAB BLOOD ORDERABLES Elena hunter Result [facility] [address] [place] [address] * MR Head wo IV Contrast (10/26/2024 9:40 PM EDT) Anatomical Region Laterality Modality Head Magnetic Resonan ce Impressions 10/26/2024 10:36 PM EDT 1. No acute infarct. 2. Encephalomalacia in the right parietal lobe. CRITICAL RESULT: No. COMMUNICATION: Per this written report. Drafted by Devan Sanchez MD on 10/26/2024 10:34 PM Final report signed by Devan Sanchez MD on 10/26/2024 10:36 PM Narrative 10/26/2024 10:36 PM EDT CLINICAL INDICATION: Neuro deficit, acute, stroke suspected TECHNIQUE: Multiplanar multiecho sequences were performed through the brain utilizing T1 and T2 weighting, as well as either axial susceptibility weighted or gradient echo sequences, and axial diffusion weighted images. Imaging was performed without contrast administration. COMPARISON: Head CT performed 16 hours prior FINDINGS: Diagnostic Quality: Adequate. Encephalomalacia with hemosiderin staining is seen in the right parietal lobe and temporal-parietal junction. There is ex vacuo dilatation of the right ventricular atrium. Mild chronic small vessel ischemic disease is also seen in the periventricular regions. Chronic lacunar infarct in the right putamen. No restricted diffusion is present to confirm acute or subacute ischemic infarct. No midline shift, hydrocephalus, or extra axial fluid collection. Vascular Flow Voids: Normal. Paranasal Sinuses and Mastoid Air Cells: Grossly clear. Orbits: No definite masses within the limitations of the study. Extracranial Findings: None. Craniocervical Junction and Skull Base: No tonsillar ectopia or mass is present. Procedure Note Devan Sanchez MD - 10/26/2024 CLINICAL INDICATION: Neuro deficit, acute, stroke suspected TECHNIQUE: Multiplanar multiecho sequences were performed through the brain utilizingT1 and T2 weighting, as well as either axial susceptibility weighted orgradient echo sequences, and axial diffusion weighted images. Imaging wasperformed without contrast administration. COMPARISON: Head CT performed 16 hours prior FINDINGS: Diagnostic Quality: Adequate. Encephalomalacia with hemosiderin staining is seen in the right parietallobe and temporal-parietal junction. There is ex vacuo dilatation of theright ventricular atrium. Mild chronic small vessel ischemic disease isalso seen in the periventricular regions. Chronic lacunar infarct in theright putamen. No restricted diffusion is present to confirm acute orsubacute ischemic infarct. No midline shift, hydrocephalus, or extra axialfluid collection. Vascular Flow Voids: Normal. Paranasal Sinuses and Mastoid Air Cells: Grossly clear. Orbits: No definite masses within the limitations of the study. Extracranial Findings: None. Craniocervical Junction and Skull Base: No tonsillar ectopia or mass ispresent. IMPRESSION: 1. No acute infarct. 2. Encephalomalacia in the right parietal lobe. CRITICAL RESULT: No. COMMUNICATION: Per this written report. Drafted by Devan Sanchez MD on 10/26/2024 10:34 PM Final report signed by Devan Sanchez MD on 10/26/2024 10:36 PM Charly Marie MD IMG MRI PROCEDURES Final Result * Sodium, Plasma (10/26/2024 6:33 PM EDT) Sodium, Plasma 138 136 - 145 mmol/L 10/26/2024 7:14 PM EDT [facility] Blood Venous blood specimen / Unknown Venipuncture / Unknown 10/26/2024 6:33 PM EDT 10/26/2024 6:49 PM EDT Everett Zhang APRN LAB BLOOD ORDERABLES Elena hunter Result [facility] [address] [place] [address] * Sodium, Plasma (10/26/2024 12:40 PM EDT) Sodium, Plasma 136 136 - 145 mmol/L 10/26/2024 1:08 PM EDT [facility] Blood Venous blood specimen / Unknown Venipuncture / Unknown 10/26/2024 12:40 PM EDT 10/26/2024 12:46 PM EDT us Everett Zhang SENIOR PHARMACY TECHNICIAN LAB BLOOD ORDERABLES Elena l Result [facility] [address] [place] [address] * XR Abdomen 1 View (10/26/2024 5:05 AM EDT) Anatomical Region Laterality Modality Body Digital Radiogra phy Impressions 10/26/2024 7:53 AM EDT No radiographic foreign bodies or abandoned leads to preclude MRI scan CRITICAL RESULT: No. COMMUNICATION: Per this written report. Drafted by Millie Lenz MD on 10/26/2024 7:52 AM Final report signed by Millie Lenz MD on 10/26/2024 7:53 AM Narrative 10/26/2024 7:53 AM EDT CLINICAL INDICATION: mri TECHNIQUE: Supine radiograph of the abdomen. COMPARISON: None. FINDINGS: No radiographic foreign bodies or abandoned leads to preclude MRI scan. Nonobstructive bowel gas pattern. Fixation hardware of the lower lumbar spine. There is contrast the urinary bladder. Procedure Note Millie Lenz MD - 10/26/2024 CLINICAL INDICATION: mri TECHNIQUE: Supine radiograph of the abdomen. COMPARISON: None. FINDINGS: No radiographic foreign bodies or abandoned leads to preclude MRI scan.Nonobstructive bowel gas pattern. Fixation hardware of the lower lumbarspine. There is contrast the urinary bladder. IMPRESSION: No radiographic foreign bodies or abandoned leads to preclude MRI scan CRITICAL RESULT: No. COMMUNICATION: Per this written report. Drafted by Millie Lenz MD on 10/26/2024 7:52 AM Final report signed by Millie Lenz MD on 10/26/2024 7:53 AM us Everett Zhang SENIOR PHARMACY TECHNICIAN IMG XR PROCEDURES Final R esult * CT Head wo IV Contrast (10/26/2024 4:49 AM EDT) Anatomical Region Laterality Modality Head Computed Tomogra phy Impressions 10/26/2024 8:12 AM EDT Redemonstration of evolving area of ischemia in the posterior right MCA territory. No significant mass effect or definite hemorrhagic transformation. CRITICAL RESULT: No. COMMUNICATION: Per this written report. Drafted by Malcolm Rogers MD on 10/26/2024 8:08 AM Final report signed by Malcolm Rogers MD on 10/26/2024 8:12 AM Narrative 10/26/2024 8:12 AM EDT CLINICAL INDICATION: Stroke, follow up TECHNIQUE: Spiral axial CT images of the head were obtained without contrast administration. Total DLP (Dose-Length Product): 952.03 mGy.cm. Please note: The reported value represents the total of one or more individual components during the CT acquisition on this date and at this time, and as such, the same value may appear in more than one CT report depending on the interpreting/reporting physicians. COMPARISON: CT head from 10/25/2024 FINDINGS: Diagnostic Quality: Adequate. Redemonstration of a wedge-shaped areas of cortical and subcortical low attenuation in the expected territory of the posterior right middle cerebral artery with no significant mass effect or definite hemorrhagic transformation. Tiny focus of hypoattenuation in the left basal ganglia is redemonstrated, likely chronic ischemic insult. Brainstem and cerebellum appear unremarkable. No definite acute bony abnormalities. Procedure Note Malcolm Bhat MD - 10/26/2024 CLINICAL INDICATION: Stroke, follow up TECHNIQUE: Spiral axial CT images of the head were obtained without contrastadministration. Total DLP (Dose-Length Product): 952.03 mGy.cm. Please note: The reportedvalue represents the total of one or more individual components during theCT acquisition on this date and at this time, and as such, the same valuemay appear in more than one CT report depending on theinterpreting/reporting physicians. COMPARISON: CT head from 10/25/2024 FINDINGS: Diagnostic Quality: Adequate. Redemonstration of a wedge-shaped areas of cortical and subcortical lowattenuation in the expected territory of the posterior right middlecerebral artery with no significant mass effect or definite hemorrhagictransformation. Tiny focus of hypoattenuation in the left basal ganglia isredemonstrated, likely chronic ischemic insult. Brainstem and cerebellumappear unremarkable. No definite acute bony abnormalities. IMPRESSION: Redemonstration of evolving area of ischemia in the posterior right MCAterritory. No significant mass effect or definite hemorrhagictransformation. CRITICAL RESULT: No. COMMUNICATION: Per this written report. Drafted by Malcolm Rogers MD on 10/26/2024 8:08 AM Final report signed by Malcolm Rogers MD on 10/26/2024 8:12 AM us Charly Marie MD IMG CT PROCEDURES Final Result * Ivory auris Surveillance by PCR (10/26/2024 3:43 AM EDT) Ivory auris PCR Result Not Detected Not Detected 10/26/2024 10:36 AM EDT [facility] Swab (Axilla and Groin) Non-blood Collection / Unknown 10/26/2024 3:43 AM EDT 10/26/2024 4:17 AM EDT Narrative [facility] - 10/26/2024 10:36 AM EDT This PCR assay was developed and its performance characteristics determined by [facility] as appropriate for clinical purposes. This assay has not been cleared or approved by the FDA, but is performed in a CLIA regulated laboratory that is qualified to perform high-complexity testing. us Deidre Brown MD LAB MICROBIOLOGY - GENERAL ORDERABLES Final Result [facility] [address] [place] [address] * Multi Drug Resistance Test (10/26/2024 3:43 AM EDT) Culture No Multi Drug Resistant Organisms Isolated 10/27/2024 8:13 AM EDT [facility] Swab (Nares and Catie Rectal) Non-blood Collection / Unknown 10/26/2024 3:43 AM EDT 10/26/2024 4:17 AM EDT Narrative [facility] - 10/27/2024 8:13 AM EDT This test was developed and its performance characteristics determined by the [facility]. Although the media is FDA-approved, it is not FDA-approved for all specimen types submitted. The FDA has determined that such clearance or approval is not necessary. This test is used for surveillance purposes. It should not be regarded as investigational or for research. The [facility] is certified under the Clinical Laboratory Improvement Amendments of 1988 (CLIA-88) as qualified to perform high complexity clinical laboratory testing. Deidre Brown MD LAB MICROBIOLOGY - GENERAL ORDERABLES Final Result [facility] [address] [place] [address] * (ABNORMAL) CBC W/O Differential (10/26/2024 3:43 AM EDT) WBC Count 13.15(H) 3.70 - 10.30 10*3/uL LAB HEMATOLOGY METHOD 10/26/2024 3:55 AM EDT [facility] RBC Count 4.76 4.60 - 6.10 10*6/uL LAB HEMATOLOGY METHOD 10/26/2024 3:55 AM EDT [facility] HGB 14.2 13.7 - 17.5 g/dL LAB HEMATOLOGY METHOD 10/26/2024 3:55 AM EDT [facility] HCT 41.1 40.0 - 51.0 % LAB HEMATOLOGY METHOD 10/26/2024 3:55 AM EDT [facility] Platelet Count 221 155 - 369 10*3/uL LAB HEMATOLOGY METHOD 10/26/2024 3:55 AM EDT [facility] MCV 86 79 - 98 fL LAB HEMATOLOGY METHOD 10/26/2024 3:55 AM EDT [facility] MCH 29.8 26.0 - 32.0 pg LAB HEMATOLOGY METHOD 10/26/2024 3:55 AM EDT [facility] MCHC 34.5 30.7 - 35.5 g/dL LAB HEMATOLOGY METHOD 10/26/2024 3:55 AM EDT [facility] RDW 13.0 11.5 - 14.5 % LAB HEMATOLOGY METHOD 10/26/2024 3:55 AM EDT [facility] MPV 10.3 8.8 - 12.5 fL LAB HEMATOLOGY METHOD 10/26/2024 3:55 AM EDT [facility] nRBC 0.0 <=0.0 per 100 WBCs LAB HEMATOLOGY METHOD 10/26/2024 3:55 AM EDT [facility] Blood Venous blood specimen / Unknown Venipuncture / Unknown 10/26/2024 3:43 AM EDT 10/26/2024 3:48 AM EDT Everett Zhang SENIOR PHARMACY TECHNICIAN LAB BLOOD ORDERABLES Elena harrison Result [facility] [address] [place] [address] * (ABNORMAL) Basic Metabolic Panel, Plasma (10/26/2024 3:43 AM EDT) Glucose, Plasma 104(H) 74 - 99 mg/dL 10/26/2024 4:21 AM EDT [facility] BUN, Plasma 8 8 - 23 mg/dL 10/26/2024 4:21 AM EDT [facility] Creatinine, Plasma 0.97 0.70 - 1.20 mg/dL 10/26/2024 4:21 AM EDT [facility] BUN/Creatinine Ratio 8 10/26/2024 4:21 AM EDT [facility] Sodium, Plasma 134(L) 136 - 145 mmol/L 10/26/2024 4:21 AM EDT [facility] Potassium, Plasma 3.7 3.6 - 4.9 mmol/L 10/26/2024 4:21 AM EDT [facility] Chloride, Plasma 103 97 - 107 mmol/L 10/26/2024 4:21 AM EDT [facility] CO2, Plasma 22 22 - 29 mmol/L 10/26/2024 4:21 AM EDT [facility] Anion Gap 9 6 - 16 mmol/L 10/26/2024 4:21 AM EDT [facility] Total Calcium, Plasma 7.8(L) 8.9 - 10.2 mg/dL 10/26/2024 4:21 AM EDT [facility] eGFRcr 84.0 mL/min/1.7 3m*2 10/26/2024 4:21 AM EDT [facility] Comment:Reported eGFRcr in m L/min/1.73m2 is based the CKD-EPI 2020 equation that does not use a race coefficient. Blood Venous blood specimen / Unknown Venipuncture / Unknown 10/26/2024 3:43 AM EDT 10/26/2024 3:48 AM EDT Everett Zhang APRN LAB BLOOD ORDERABLES Elena l Result Performing Organization Address [facility] Co de Phone Number [facility] [address] [place] [address] * (ABNORMAL) Magnesium, Plasma (10/26/2024 3:43 AM EDT) Magnesium, Plasma 2.8(H) 1.9 - 2.4 mg/dL 10/26/2024 4:21 AM EDT [facility] Blood Venous blood specimen / Unknown Venipuncture / Unknown 10/26/2024 3:43 AM EDT 10/26/2024 3:48 AM EDT Everett Zhang APRN LAB BLOOD ORDERABLES Elena l Result [facility] [address] [place] [address] * Phosphorus, Plasma (10/26/2024 3:43 AM EDT) Phosphorus, Plasma 4.4 2.5 - 4.5 mg/dL 10/26/2024 4:21 AM EDT [facility] Blood Venous blood specimen / Unknown Venipuncture / Unknown 10/26/2024 3:43 AM EDT 10/26/2024 3:48 AM EDT Everett Zhang APRN LAB BLOOD ORDERABLES Elena l Result Performing Organization Address City/[facility]/ZIP Co de Phone Number [facility] [address] [place] [address] * (ABNORMAL) Ionized calcium, whole blood (10/26/2024 3:43 AM EDT) Ionized Calcium, Whole Blood 3.6(L) 4.6 - 5.1 mg/dL LAB HEMATOLOGY METHOD 10/26/2024 3:51 AM EDT [facility] Blood Venous blood specimen / Unknown Venipuncture / Unknown 10/26/2024 3:43 AM EDT 10/26/2024 3:50 AM EDT Everett Zhang APRN LAB BLOOD ORDERABLES Elena l Result Performing Organization Address [facility] [place] [place] [address] * (ABNORMAL) T3 (10/26/2024 3:43 AM EDT) T3, Serum 67(L) 87 - 187 ng/dL 10/26/2024 4:46 AM EDT [facility] Blood Venous blood specimen / Unknown Venipuncture / Unknown 10/26/2024 3:43 AM EDT 10/26/2024 3:48 AM EDT Charly Marie MD LAB BLOOD ORDERABLES Final Resul t [facility] [address] [place] [address] * Troponin T, High Sensitivity, 2 Hour, Plasma (10/25/2024 10:54 PM EDT) Troponin T, High Sensitivity, 2 Hour 13 <19 ng/L 10/25/2024 11:29 PM EDT [facility] Blood Venous blood specimen / Unknown Venipuncture / Unknown 10/25/2024 10:54 PM EDT 10/25/2024 11:00 PM EDT Deidre Brown MD LAB BLOOD ORDERABLES Final Result [facility] [address] [place] [address] * NH CRITICAL CARE, E/M 30-74 MINUTES (10/25/2024 8:54 PM EDT) Narrative Everett Zhang APRN - 10/25/2024 8:54 PM EDT Everett Zhang APRN 10/25/2024 9:02 PM Critical Care Performed by: Everett Zhang APRN Authorized by: Everett Zhang APRN Critical care provider statement: Critical care time (minutes): 55 Critical care was time spent personally by me on the following activities: Review of old charts, ordering and review of radiographic studies, ordering and review of laboratory studies, ordering and performing treatments and interventions, discussions with primary provider, evaluation of patient's response to treatment, obtaining history from patient or surrogate and examination of patient Everett Zhang APRN IN CLINIC/BEDSIDE ORDERAB LES Final Result * Type and Screen (10/25/2024 8:11 PM EDT) Pathologist [facility] ABO/Rh O Positive 10/25/2024 8:09 PM EDT [facility] Antibody Screen Negative 10/25/2024 8:09 PM EDT [facility] Specimen Expiration 10/28/2024 23:59 10/25/2024 8:09 PM EDT [facility] Blood Venous blood specimen / Unknown Venipuncture / Unknown 10/25/2024 8:11 PM EDT 10/25/2024 8:27 PM EDT Deidre Brown MD LAB BLOOD BANK TEST ORDERA BLES Final Result Performing Organization Address City/[facility]/ZIP Co de Phone Number B[facility]ANK [address] [place] [address], [place] * Troponin T, High Sensitivity, 0 Hour Plasma, Reflex to 2 Hour (10/25/2024 8:11 PM EDT) Pathologist [facility] Troponin T, High Sensitivity, 0 Hour 16 <19 ng/L 10/25/2024 9:03 PM EDT [facility] Blood Venous blood specimen / Unknown Venipuncture / Unknown 10/25/2024 8:11 PM EDT 10/25/2024 8:20 PM EDT Deidre Brown MD LAB BLOOD ORDERABLES Final Result [facility] [address] [place] [address] * Protime-INR (10/25/2024 8:11 PM EDT) Prothrombin Time 14.0 12.0 - 14.3 sec LAB COAGULATION METHOD 10/25/2024 8:56 PM EDT [facility] INR 1.1 0.9 - 1.1 LAB COAGULATION METHOD 10/25/2024 8:56 PM EDT [facility] Blood Venous blood specimen / Unknown Venipuncture / Unknown 10/25/2024 8:11 PM EDT 10/25/2024 8:20 PM EDT Narrative [facility] - 10/25/2024 8:56 PM EDT OPTIMAL INR RANGES FOR PATIENT ON ORAL ANTICOAGULANT THERAPY Prevention of venous thromboembolism INR 2.0 to 3.0 In patients with heart disease: Atrial fibrillation INR 2.0 to 3.0 Valvular heart disease INR 2.0 to 3.0 Tissue heart valves INR 2.0 to 3.0 Mechanical prosthetic valves INR 2.5 to 3.5 Prevention of recurrent [place] INR 2.5 to 3.5 us Deidre Brown MD LAB BLOOD ORDERABLES Final Result [facility] [address] [place] [address] * APTT (10/25/2024 8:11 PM EDT) aPTT 26 25 - 35 sec LAB COAGULATION METHOD 10/25/2024 8:56 PM EDT [facility] Blood Venous blood specimen / Unknown Venipuncture / Unknown 10/25/2024 8:11 PM EDT 10/25/2024 8:20 PM EDT us Deidre Brown MD LAB BLOOD ORDERABLES Final Result [facility] [address] [place] [address] * (ABNORMAL) CBC and differential (10/25/2024 8:11 PM EDT) WBC Count 12.09(H) 3.70 - 10.30 10*3/uL LAB HEMATOLOGY METHOD 10/25/2024 8:32 PM EDT [facility] RBC Count 5.13 4.60 - 6.10 10*6/uL LAB HEMATOLOGY METHOD 10/25/2024 8:32 PM EDT [facility] HGB 15.1 13.7 - 17.5 g/dL LAB HEMATOLOGY METHOD 10/25/2024 8:32 PM EDT [facility] HCT 44.7 40.0 - 51.0 % LAB HEMATOLOGY METHOD 10/25/2024 8:32 PM EDT [facility] Platelet Count 222 155 - 369 10*3/uL LAB HEMATOLOGY METHOD 10/25/2024 8:32 PM EDT [facility] MCV 87 79 - 98 fL LAB HEMATOLOGY METHOD 10/25/2024 8:32 PM EDT [facility] MCH 29.4 26.0 - 32.0 pg LAB HEMATOLOGY METHOD 10/25/2024 8:32 PM EDT [facility] MCHC 33.8 30.7 - 35.5 g/dL LAB HEMATOLOGY METHOD 10/25/2024 8:32 PM EDT [facility] RDW 12.6 11.5 - 14.5 % LAB HEMATOLOGY METHOD 10/25/2024 8:32 PM EDT [facility] MPV 10.4 8.8 - 12.5 fL LAB HEMATOLOGY METHOD 10/25/2024 8:32 PM EDT [facility] nRBC 0.0 <=0.0 per 100 WBCs LAB HEMATOLOGY METHOD 10/25/2024 8:32 PM EDT [facility] Differential Type Automated LAB HEMATOLOGY METHOD 10/25/2024 8:32 PM EDT [facility] Neutrophils % 87 % LAB HEMATOLOGY METHOD 10/25/2024 8:32 PM EDT [facility] Lymphocytes % 9 % LAB HEMATOLOGY METHOD 10/25/2024 8:32 PM EDT [facility] Monocytes % 4 % LAB HEMATOLOGY METHOD 10/25/2024 8:32 PM EDT [facility] Eosinophils % 0 % LAB HEMATOLOGY METHOD 10/25/2024 8:32 PM EDT [facility] Basophils % 0 % LAB HEMATOLOGY METHOD 10/25/2024 8:32 PM EDT [facility] Immature Granulocytes % 0 % LAB HEMATOLOGY METHOD 10/25/2024 8:32 PM EDT [facility] Neutrophils Absolute 10.40(H) 1.60 - 6.10 10*3/uL LAB HEMATOLOGY METHOD 10/25/2024 8:32 PM EDT [facility] Lymphocytes Absolute 1.08(L) 1.20 - 3.90 10*3/uL LAB HEMATOLOGY METHOD 10/25/2024 8:32 PM EDT [facility] Monocytes Absolute 0.50 0.30 - 0.90 10*3/uL LAB HEMATOLOGY METHOD 10/25/2024 8:32 PM EDT [facility] Eosinophils Absolute 0.02 0.00 - 0.50 10*3/uL LAB HEMATOLOGY METHOD 10/25/2024 8:32 PM EDT [facility] Basophils Absolute 0.04 0.00 - 0.10 10*3/uL LAB HEMATOLOGY METHOD 10/25/2024 8:32 PM EDT [facility] Immature Granulocytes Absolute 0.05 0.00 - 0.06 10*3/uL LAB HEMATOLOGY METHOD 10/25/2024 8:32 PM EDT [facility] Blood Venous blood specimen / Unknown Venipuncture / Unknown 10/25/2024 8:11 PM EDT 10/25/2024 8:20 PM EDT [facility] - 10/25/2024 8:32 PM EDT Therapeutic decision making should be based on absolute values, rather than percentages. us Deidre Brown MD LAB BLOOD ORDERABLES Final Result [facility] [address] [place] [address] * (ABNORMAL) Basic metabolic panel (10/25/2024 8:11 PM EDT) Glucose, Plasma 140(H) 74 - 99 mg/dL 10/25/2024 9:02 PM EDT [facility] BUN, Plasma 7(L) 8 - 23 mg/dL 10/25/2024 9:02 PM EDT [facility] Creatinine, Plasma 0.93 0.70 - 1.20 mg/dL 10/25/2024 9:02 PM EDT [facility] BUN/Creatinine Ratio 8 10/25/2024 9:02 PM EDT [facility] Sodium, Plasma 135(L) 136 - 145 mmol/L 10/25/2024 9:02 PM EDT [facility] Potassium, Plasma 3.6 3.6 - 4.9 mmol/L 10/25/2024 9:02 PM EDT [facility] Chloride, Plasma 99 97 - 107 mmol/L 10/25/2024 9:02 PM EDT [facility] CO2, Plasma 22 22 - 29 mmol/L 10/25/2024 9:02 PM EDT [facility] Anion Gap 14 6 - 16 mmol/L 10/25/2024 9:02 PM EDT [facility] Total Calcium, Plasma 8.8(L) 8.9 - 10.2 mg/dL 10/25/2024 9:02 PM EDT [facility] eGFRcr 88.3 mL/min/1.7 3m*2 10/25/2024 9:02 PM EDT [facility] Comment:Reported eGFRcr in m L/min/1.73m2 is based the CKD-EPI 2020 equation that does not use a race coefficient. Blood Venous blood specimen / Unknown Venipuncture / Unknown 10/25/2024 8:11 PM EDT 10/25/2024 8:20 PM EDT us Deidre Brown MD LAB BLOOD ORDERABLES Final Result [facility] [address] [place] [address] * T4, free (10/25/2024 8:11 PM EDT) Free T4, Plasma 1.0 0.8 - 1.7 ng/dL 10/25/2024 9:02 PM EDT [facility] Blood Venous blood specimen / Unknown Venipuncture / Unknown 10/25/2024 8:11 PM EDT 10/25/2024 8:20 PM EDT us Sundar Ortiz MD LAB BLOOD [place] [address] * (ABNORMAL) Sodium, Plasma (10/25/2024 8:11 PM EDT) Sodium, Plasma 135(L) 136 - 145 mmol/L 10/25/2024 9:02 PM EDT [facility] Blood Venous blood specimen / Unknown Venipuncture / Unknown 10/25/2024 8:11 PM EDT 10/25/2024 8:20 PM EDT Everett Zhang APRN LAB BLOOD [place] [address] * (ABNORMAL) Ionized calcium, whole blood (10/25/2024 8:11 PM EDT) [facility] Ionized Calcium, Whole Blood 4.0(L) 4.6 - 5.1 mg/dL LAB HEMATOLOGY METHOD 10/25/2024 8:24 PM EDT [facility] Blood Venous blood specimen / Unknown Venipuncture / Unknown 10/25/2024 8:11 PM EDT 10/25/2024 8:23 PM EDT Everett Zhang APRN LAB BLOOD ORDERABLES Elena l Result [address] [address] [place] [address] * (ABNORMAL) POCT glucose meter (10/25/2024 8:02 PM EDT) POCT Glucose 138(H) 74 - 99 mg/dL 10/25/2024 8:04 PM EDT [facility] Comment:Accuracy of a glucos e result obtained from a capillary whole blood specimen relies upon adequate, non-compromised capillary blood flow. If the capillary glucose result is not consistent with the patient's clinical signs and symptoms, glucose testing should be repeated with either an arterial or venous sample on the glucometer or sent to the main labortory for testing. Comment 10/25/2024 8:04 PM EDT [facility] Jewelry Designer ID Aaliyah Kiran 10/25/2024 8:04 PM EDT [facility] Device ID [id number] 10/25/2024 8:04 PM EDT [facility] Specimen Type POC Capillary 10/25/2024 8:04 PM EDT [facility] Blood Capillary blood specimen / Unknown 10/25/2024 8:02 PM EDT 10/25/2024 8:04 PM EDT us Deidre Brown MD LAB POINT OF CARE TEST DOCKED DEVICE UNSOLICITED RESULTS Final Result Performing Organization Address City/[facility]/ZIP Co de Phone Number [facility] [address] [place] [address] * (ABNORMAL) Sodium, Plasma (10/25/2024 7:03 PM EDT) Pathologist [facility] Sodium, Plasma 134(L) 136 - 145 mmol/L 10/25/2024 7:26 PM EDT [facility] Blood Venous blood specimen / Unknown Venipuncture / Unknown 10/25/2024 7:03 PM EDT 10/25/2024 7:07 PM EDT us Everett Zhang SENIOR PHARMACY TECHNICIAN LAB BLOOD ORDERABLES Elena l Result [facility] [address] [place] [address] * (ABNORMAL) Basic Metabolic Panel, Plasma (10/25/2024 7:03 PM EDT) Glucose, Plasma 125(H) 74 - 99 mg/dL 10/25/2024 7:26 PM EDT [facility] BUN, Plasma 7(L) 8 - 23 mg/dL 10/25/2024 7:26 PM EDT [facility] Creatinine, Plasma 0.83 0.70 - 1.20 mg/dL 10/25/2024 7:26 PM EDT [facility] BUN/Creatinine Ratio 8 10/25/2024 7:26 PM EDT [facility] Sodium, Plasma 134(L) 136 - 145 mmol/L 10/25/2024 7:26 PM EDT [facility] Potassium, Plasma 3.0(L) 3.6 - 4.9 mmol/L 10/25/2024 7:26 PM EDT [facility] Chloride, Plasma 100 97 - 107 mmol/L 10/25/2024 7:26 PM EDT [facility] CO2, Plasma 21(L) 22 - 29 mmol/L 10/25/2024 7:26 PM EDT [facility] Anion Gap 13 6 - 16 mmol/L 10/25/2024 7:26 PM EDT [facility] Total Calcium, Plasma 7.9(L) 8.9 - 10.2 mg/dL 10/25/2024 7:26 PM EDT [facility] eGFRcr 94.2 mL/min/1.7 3m*2 10/25/2024 7:26 PM EDT [facility] Comment:Reported eGFRcr in m L/min/1.73m2 is based the CKD-EPI 2020 equation that does not use a race coefficient. Blood Venous blood specimen / Unknown Venipuncture / Unknown 10/25/2024 7:03 PM EDT 10/25/2024 7:07 PM EDT Everett Zhang SENIOR PHARMACY TECHNICIAN LAB BLOOD ORDERABLES Elena l Result [facility] [address] [place] [address] * (ABNORMAL) Phosphorus (10/25/2024 7:03 PM EDT) Phosphorus, Plasma 1.8(L) 2.5 - 4.5 mg/dL 10/25/2024 7:26 PM EDT [facility] Blood Venous blood specimen / Unknown Venipuncture / Unknown 10/25/2024 7:03 PM EDT 10/25/2024 7:07 PM EDT Everett Zhang APRN LAB BLOOD ORDERABLES Elena l Result Performing Organization Address City/[facility]/ZIP Co de Phone Number [facility] [address] [place] [address] * (ABNORMAL) Magnesium, Plasma (10/25/2024 7:03 PM EDT) Magnesium, Plasma 1.7(L) 1.9 - 2.4 mg/dL 10/25/2024 7:26 PM EDT [facility] Blood Venous blood specimen / Unknown Venipuncture / Unknown 10/25/2024 7:03 PM EDT 10/25/2024 7:07 PM EDT Everett Zhang APRN LAB BLOOD ORDERABLES Elena l Result Performing Organization Address City/[facility]/ZIP Co de Phone Number [facility] [address] [place] [address] * (ABNORMAL) Lipid panel (10/25/2024 7:03 PM EDT) Cholesterol, Plasma 178 <200 mg/dL 10/25/2024 7:51 PM EDT [facility] Comment: Cholesterol Reference Range (age >17 years): Desirable <200 mg/dL Borderline 200 to 239 mg/dL Undesirable >239 mg/dL HDL 36(L) >=40 mg/dL 10/25/2024 7:51 PM EDT [facility] Comment: HDL Cholesterol Reference Ranges (age >17 years): Female, acceptable > or = 50 mg/dL Male, acceptable > or = 40 mg/dL Triglycerides, Plasma 148 <150 mg/dL 10/25/2024 7:51 PM EDT [facility] Comment: Triglyceride Reference Range (age >17 years): Desirable: <150 mg/dL Borderline high: 150 to 199 mg/dL High: 200 to 499 mg/dL Very high: >499 mg/dL Increased risk of pancreatitis: >1000 mg/dL Cholesterol/HDL Ratio 5 10/25/2024 7:51 PM EDT [facility] LDL, Calculated 115(H) <100 mg/dL 7:51 PM EDT [facility] Comment: LDL Cholesterol Reference Range (age >17 years): Optimal: <100 mg/dL Near or above optimal: 100 - 129 mg/dL Borderline high: 130 - 159 mg/dL High: 160 - 189 mg/dL Very high: >189 mg/dL LDL Cholesterol Reference Range (age <18 years): Desirable: <110 mg/dL Borderline: 110 - 129 mg/dL Undesirable: >130 mg/dL LDL Cholesterol is calculated using the Jurado/NIH equation. Fasting greater than or equal to 12 hours? Unknown 10/25/2024 7:51 PM EDT [facility] Blood Venous blood specimen / Unknown Venipuncture / Unknown 10/25/2024 7:03 PM EDT 10/25/2024 7:07 PM EDT us Deidre Brown MD LAB BLOOD ORDERABLES Final Result [facility] [address] [place] [address] * Troponin T, High Sensitivity, 2 Hour, Plasma (10/25/2024 7:03 PM EDT) Troponin T, High Sensitivity, 2 Hour 15 <19 ng/L 10/25/2024 7:28 PM EDT [facility] Troponin Delta Interpretation Not Calculated 10/25/2024 7:28 PM EDT [facility] Comment:Specimen not collect ed within acceptable timeframe. Delta will not be calculated. Blood Venous blood specimen / Unknown Venipuncture / Unknown 10/25/2024 7:03 PM EDT 10/25/2024 7:07 PM EDT us Scott Rankin MD LAB BLOOD ORDERABLES Fi nal Result Performing Organization Address [facility]/ZIP Co de Phone Number [facility] [address] [place] [address] * (ABNORMAL) TSH (10/25/2024 6:40 PM EDT) Pathologist [facility] Thyroid Stimulating Hormone, Plasma 48.20(H) 0.40 - 4.20 uIU/mL 10/25/2024 7:26 PM EDT [facility] Blood Venous blood specimen / Unknown Venipuncture / Unknown 10/25/2024 6:40 PM EDT 10/25/2024 6:42 PM EDT Deidre Brown MD LAB BLOOD ORDERABLES Final Result Performing Organization Address [facility] Co de Phone Number [facility] [address] [place] [address] * ECG Adult (10/25/2024 6:34 PM EDT) [facility] EKG DIAGNOSIS CLASS Abnormal MUSE ECG Ventricular Rate 64 BPM MUSE ECG Atrial Rate 64 BPM MUSE ECG NH Interval 300 ms MUSE ECG QRSD Interval 94 ms MUSE ECG QT Interval 438 ms MUSE ECG QTC Interval 451 ms MUSE ECG P [place] 49 degrees MUSE ECG R [place] 202 degrees MUSE ECG T Wave [place] 9 degrees MUSE ECG Diagnosis Sinus rhythm with 1st degree AV block MUSE ECG Diagnosis Abnormal ECG MUSE ECG Diagnosis MUSE ECG Diagnosis Confirmed by Yves Harris ([id number]) on 10/26/2024 11:25:24 AM MUSE ECG 10/25/2024 6:34 PM EDT 10/26/2024 11:25 AM EDT Scott Rankin MD ECG ORDERABLES Final R esult Performing Organization Address City/[facility] Co de Phone Number MUSE ECG * Hemoglobin A1c (10/25/2024 6:02 PM EDT) Pathologist [facility] Hemoglobin A1c 5.6 <5.7 % 10/26/2024 11:41 AM EDT [facility] Blood Venous blood specimen / Unknown Venipuncture / Unknown 10/25/2024 6:02 PM EDT 10/25/2024 6:10 PM EDT Narrative [facility] - 10/26/2024 11:41 AM EDT HA1C Interpretive Data: Diagnosis of Diabetes: Diabetic > or = 6.5% Pre-diabetic 5.7 to 6.4% Non-diabetic < or = 5.6% Glycemic Targets for Type I and Type II Diabetics: Non- Adults <7.0% Adults <6.0% Children and Adolescents <7.5% Source: [place] [employer]. Standards of medical care in diabetes,2017. Diabetes Care.2017:40 (suppl 1):S1-S135. us Deidre Brown MD LAB BLOOD ORDERABLES Final Result Performing Organization Address City/[facility] Co de Phone Number [facility] [address] [place] [address] * ED HIV 1/2 Antibody/Antigen Screen w/Reflex to HIV 1/2 Differentiation (10/25/2024 6:02 PM EDT) HIV 1 & 2 Antibody/Antigen Screen Non Reactive Non Reactive 10/25/2024 6:54 PM EDT [facility] Comment:Screening for HIV 1 & 2 antibodies, and P24 antigen is NONREACTIVE. No confirmatory testing is required. Blood Venous blood specimen / Unknown Venipuncture / Unknown 10/25/2024 6:02 PM EDT 10/25/2024 6:14 PM EDT us Scott Rankin MD LAB BLOOD ORDERABLES Fi nal Result [facility] [address] [place] [address] * Hepatitis C Antibody - ED (10/25/2024 6:02 PM EDT) Hepatitis C Antibody Negative Negative 10/25/2024 7:44 PM EDT [facility] Blood Venous blood specimen / Unknown Venipuncture / Unknown 10/25/2024 6:02 PM EDT 10/25/2024 6:14 PM EDT us Scott Rankin MD LAB BLOOD ORDERABLES Fi nal Result [facility] [address] [place] [address] * Troponin now and 120 min (10/25/2024 6:02 PM EDT) Troponin T, High Sensitivity, 0 Hour 15 <19 ng/L 10/25/2024 6:33 PM EDT [facility] Blood Venous blood specimen / Unknown Venipuncture / Unknown 10/25/2024 6:02 PM EDT 10/25/2024 6:10 PM EDT us Scott Rankin MD LAB BLOOD ORDERABLES Fi nal Result Performing Organization Address City/[facility]/ZIP Co de Phone Number [facility] [address] [place] [address] * (ABNORMAL) Comprehensive Metabolic Panel (10/25/2024 6:02 PM EDT) Glucose, Plasma 133(H) 74 - 99 mg/dL 10/25/2024 6:33 PM EDT [facility] BUN, Plasma 8 8 - 23 mg/dL 10/25/2024 6:33 PM EDT [facility] Creatinine, Plasma 0.94 0.70 - 1.20 mg/dL 10/25/2024 6:33 PM EDT [facility] BUN/Creatinine Ratio 9 10/25/2024 6:33 PM EDT [facility] Sodium, Plasma 131(L) 136 - 145 mmol/L 10/25/2024 6:33 PM EDT [facility] Potassium, Plasma 3.5(L) 3.6 - 4.9 mmol/L 10/25/2024 6:33 PM EDT [facility] Chloride, Plasma 97 97 - 107 mmol/L 10/25/2024 6:33 PM EDT [facility] CO2, Plasma 21(L) 22 - 29 mmol/L 10/25/2024 6:33 PM EDT [facility] Anion Gap 13 6 - 16 mmol/L 10/25/2024 6:33 PM EDT [facility] Total Calcium, Plasma 8.6(L) 8.9 - 10.2 mg/dL 10/25/2024 6:33 PM EDT [facility] Total Protein 7.5 6.3 - 7.9 g/dL 10/25/2024 6:33 PM EDT [facility] Albumin, Plasma 4.2 3.5 - 5.2 g/dL 10/25/2024 6:33 PM EDT [facility] AST, Plasma 21 10 - 50 U/L 10/25/2024 6:33 PM EDT [facility] ALT, Plasma 21 10 - 50 U/L 10/25/2024 6:33 PM EDT [facility] Alkaline Phosphatase, Plasma 75 40 - 115 U/L 10/25/2024 6:33 PM EDT [facility] Total Bilirubin, Plasma 0.9 0.2 - 1.1 mg/dL 10/25/2024 6:33 PM EDT [facility] eGFRcr 87.2 mL/min/1.7 3m*2 10/25/2024 6:33 PM EDT [facility] Comment:Reported eGFRcr in m L/min/1.73m2 is based the CKD-EPI 2020 equation that does not use a race coefficient. Blood Venous blood specimen / Unknown Venipuncture / Unknown 10/25/2024 6:02 PM EDT 10/25/2024 6:10 PM EDT us Scott Rankin MD LAB BLOOD ORDERABLES Fi nal Result [facility] [address] [place] [address] * APTT (PTT) (10/25/2024 6:02 PM EDT) aPTT 27 25 - 35 sec 10/25/2024 6:25 PM EDT [facility] Blood Venous blood specimen / Unknown Venipuncture / Unknown 10/25/2024 6:02 PM EDT 10/25/2024 6:10 PM EDT Scott Rankin MD LAB BLOOD ORDERABLES Fi nal Result Performing Organization Address [facility] [place] [place] [address] * Anti Xa Level Unfractionated Heparin (10/25/2024 6:02 PM EDT) Anti Xa Level Unfractionated Heparin <0.11 <1.00 IU/mL 10/25/2024 6:26 PM EDT [facility] Blood Venous blood specimen / Unknown Venipuncture / Unknown 10/25/2024 6:02 PM EDT 10/25/2024 6:10 PM EDT Narrative [facility] - 10/25/2024 6:26 PM EDT Therapeutic Range: UFH Full Dose and ACS/WV protocols*: 0.30 - 0.70 IU/mL UFH Low Dose protocol*: 0.25 - 0.50 IU/mL UFH prophylaxis: Not established Scott Rankin MD LAB BLOOD ORDERABLES Fi nal Result Performing Organization Address [facility] Co de Phone Number [facility] [address] [place] [address] * Prothrombin Time (10/25/2024 6:02 PM EDT) Prothrombin Time 13.8 12.0 - 14.3 sec 10/25/2024 6:24 PM EDT [facility] INR 1.1 0.9 - 1.1 10/25/2024 6:24 PM EDT [facility] Blood Venous blood specimen / Unknown Venipuncture / Unknown 10/25/2024 6:02 PM EDT 10/25/2024 6:10 PM EDT Narrative [facility] - 10/25/2024 6:24 PM EDT OPTIMAL INR RANGES FOR PATIENT ON ORAL ANTICOAGULANT THERAPY Prevention of venous thromboembolism INR 2.0 to 3.0 In patients with heart disease: Atrial fibrillation INR 2.0 to 3.0 Valvular heart disease INR 2.0 to 3.0 Tissue heart valves INR 2.0 to 3.0 Mechanical prosthetic valves INR 2.5 to 3.5 Prevention of recurrent [place] INR 2.5 to 3.5 us Scott Rankin MD LAB BLOOD ORDERABLES Fi nal Result [facility] [address] [place] [address] * (ABNORMAL) CBC with Diff (10/25/2024 6:02 PM EDT) WBC Count 11.74(H) 3.70 - 10.30 10*3/uL LAB HEMATOLOGY METHOD 10/25/2024 6:12 PM EDT [facility] RBC Count 5.36 4.60 - 6.10 10*6/uL LAB HEMATOLOGY METHOD 10/25/2024 6:12 PM EDT [facility] HGB 15.8 13.7 - 17.5 g/dL LAB HEMATOLOGY METHOD 10/25/2024 6:12 PM EDT [facility] HCT 46.3 40.0 - 51.0 % LAB HEMATOLOGY METHOD 10/25/2024 6:12 PM EDT [facility] Platelet Count 215 155 - 369 10*3/uL LAB HEMATOLOGY METHOD 10/25/2024 6:12 PM EDT [facility] MCV 86 79 - 98 fL LAB HEMATOLOGY METHOD 10/25/2024 6:12 PM EDT [facility] MCH 29.5 26.0 - 32.0 pg LAB HEMATOLOGY METHOD 10/25/2024 6:12 PM EDT [facility] MCHC 34.1 30.7 - 35.5 g/dL LAB HEMATOLOGY METHOD 10/25/2024 6:12 PM EDT [facility] RDW 12.8 11.5 - 14.5 % LAB HEMATOLOGY METHOD 10/25/2024 6:12 PM EDT [facility] MPV 10.4 8.8 - 12.5 fL LAB HEMATOLOGY METHOD 10/25/2024 6:12 PM EDT [facility] nRBC 0.0 <=0.0 per 100 WBCs LAB HEMATOLOGY METHOD 10/25/2024 6:12 PM EDT [facility] Differential Type Automated LAB HEMATOLOGY METHOD 10/25/2024 6:12 PM EDT [facility] Neutrophils % 82 % LAB HEMATOLOGY METHOD 10/25/2024 6:12 PM EDT [facility] Lymphocytes % 11 % LAB HEMATOLOGY METHOD 10/25/2024 6:12 PM EDT [facility] Monocytes % 5 % LAB HEMATOLOGY METHOD 10/25/2024 6:12 PM EDT [facility] Eosinophils % 1 % LAB HEMATOLOGY METHOD 10/25/2024 6:12 PM EDT [facility] Basophils % 0 % LAB HEMATOLOGY METHOD 10/25/2024 6:12 PM EDT [facility] Immature Granulocytes % 1 % LAB HEMATOLOGY METHOD 10/25/2024 6:12 PM EDT [facility] Neutrophils Absolute 9.65(H) 1.60 - 6.10 10*3/uL LAB HEMATOLOGY METHOD 10/25/2024 6:12 PM EDT [facility] Lymphocytes Absolute 1.29 1.20 - 3.90 10*3/uL LAB HEMATOLOGY METHOD 10/25/2024 6:12 PM EDT [facility] Monocytes Absolute 0.62 0.30 - 0.90 10*3/uL LAB HEMATOLOGY METHOD 10/25/2024 6:12 PM EDT [facility] Eosinophils Absolute 0.07 0.00 - 0.50 10*3/uL LAB HEMATOLOGY METHOD 10/25/2024 6:12 PM EDT [facility] Basophils Absolute 0.05 0.00 - 0.10 10*3/uL LAB HEMATOLOGY METHOD 10/25/2024 6:12 PM EDT [facility] Immature Granulocytes Absolute 0.06 0.00 - 0.06 10*3/uL LAB HEMATOLOGY METHOD 10/25/2024 6:12 PM EDT [facility] Blood Venous blood specimen / Unknown Venipuncture / Unknown 10/25/2024 6:02 PM EDT 10/25/2024 6:10 PM EDT [facility] - 10/25/2024 6:12 PM EDT Therapeutic decision making should be based on absolute values, rather than percentages. us Scott Rankin MD LAB BLOOD ORDERABLES Fi nal Result [facility] [address] [place] [address] * CT Angio Neck (10/25/2024 5:57 PM EDT) Anatomical Region Laterality Modality Carotid Artery Computed Tomogra phy Impressions 10/25/2024 6:34 PM EDT Evolving ischemic infarct of the right MCA territory. Subcentimeter hypodensity in the left basal ganglia suggestive of a age- indeterminate lacunar infarct. Significant critical stenosis of the right M1 segment.There is reduced caliber of the right M2 segment superior branch. Occlusion of the left P2 segment [employer] (series 3 image 1 5). CRITICAL RESULT: No. COMMUNICATION: Per this written report. Drafted by Beulah Hu MD on 10/25/2024 6:08 PM Final report signed by Beulah Hu MD on 10/25/2024 6:34 PM Narrative 10/25/2024 6:34 PM EDT CLINICAL INDICATION: Neuro deficit, acute, stroke suspected TECHNIQUE: Routine contiguous axial CT images of the head were obtained without contrast administration. Contrast-enhanced CT angiogram of the head and neck was obtained after administration of intravenous iodinated contrast using 0.6 mm axial slice thickness with multiplanar reformations and maximum intensity projections. In addition, 3D images were created and reviewed. AI Utilization: Total DLP (Dose-Length Product): 2056.29 mGy.cm (accession [id number]), 2056.29 mGy.cm (accession [id number]), 2056.29 mGy.cm (accession [id number]). Please note: The reported value represents the total of one or more individual components during the CT acquisition on this date and at this time, and as such, the same value may appear in more than one CT report depending on the interpreting/reporting physicians. COMPARISON: None. FINDINGS: CT Head without: Hypodense area in the right parietal MCA territory. Subcentimeter hypodensity in the right basal ganglia likely remote lacunar infarct. Subcentimeter hypodensity in the left basal ganglia likely a age-indeterminate lacunar infarct. No mass, mass effect, or midline displacement of structures. Normal ventricular size and configuration. Patent basal cisterns. No displaced or depressed calvarial fractures. The visualized paranasal sinuses and mastoid air cells are clear. CTA Head: Bilateral video games mechanic. Significant critical stenosis of the right M1 segment. There is reduced caliber of the right M2 segment superior branch. Occlusion of the left P2 segment (series 3 image 205). Stenosis of the left P1 segment (series 3 image 144) Bilateral ICA siphon atherosclerosis. No occlusion, dissection, or pseudoaneurysm. The intracranial venous structures are also fairly well opacified and appear unremarkable. CTA Neck: Motion limiting evaluation. There is normal vascular anatomy. There is no evidence of vascular injury, specifically no arterial stenosis, occlusion, dissection, or pseudoaneurysm. There is 30% stenosis of the ICA origins by NASCET criteria. Moderate plaque burden in the left ICA origin. C2-C4 ACDF. Procedure Note Beulah Hu MD - 10/25/2024 CLINICAL INDICATION: Neuro deficit, acute, stroke suspected TECHNIQUE: Routine contiguous axial CT images of the head were obtained withoutcontrast administration. Contrast-enhanced CT angiogram of the head and neck was obtained afteradministration of intravenous iodinated contrast using 0.6 mm axial slicethickness with multiplanar reformations and maximum intensity projections.In addition, 3D images were created and reviewed. AI Utilization: Total DLP (Dose-Length Product): 2056.29 mGy.cm (accession [id number]),2056.29 mGy.cm (accession [id number]), 2056.29 mGy.cm (accession [id number]).Please note: The reported value represents the total of one or moreindividual components during the CT acquisition on this date and at thistime, and as such, the same value may appear in more than one CT reportdepending on the interpreting/reporting physicians. COMPARISON: None. FINDINGS: CT Head without: Hypodense area in the right parietal MCA territory. Subcentimeterhypodensity in the right basal ganglia likely remote lacunar infarct.Subcentimeter hypodensity in the left basal ganglia likely aage-indeterminate lacunar infarct. No mass, mass effect, or midlinedisplacement of structures. Normal ventricular size and configuration.Patent basal cisterns. No displaced or depressed calvarial fractures. The visualized paranasalsinuses and mastoid air cells are clear. CTA Head: Bilateral video games mechanic. Significant critical stenosis of the right W2exebopi. There is reduced caliber of the right M2 segment superior branch.Occlusion of the left P2 segment (series 3 image 205). Stenosis of theleft P1 segment (series 3 image 144) Bilateral ICA siphon atherosclerosis.No occlusion, dissection, or pseudoaneurysm. The intracranial venousstructures are also fairly well opacified and appear unremarkable. CTA Neck: Motion limiting evaluation. There is normal vascular anatomy. There is noevidence of vascular injury, specifically no arterial stenosis, occlusion,dissection, or pseudoaneurysm. There is 30% stenosis of the ICA origins byNASCET criteria. Moderate plaque burden in the left ICA origin. C2-C4ACDF. IMPRESSION: Evolving ischemic infarct of the right MCA territory. Subcentimeter hypodensity in the left basal ganglia suggestive of aage- indeterminate lacunar infarct. Significant critical stenosis of the right M1 segment.There is reducedcaliber of the right M2 segment superior branch. Occlusion of the left P2 segment [employer] (series 3 image 1 5). CRITICAL RESULT: No. COMMUNICATION: Per this written report. Drafted by Beulah Hu MD on 10/25/2024 6:08 PM Final report signed by Beulah Hu MD on 10/25/2024 6:34 PM us Scott Rankin MD IMG CT PROCEDURES Final Result * CT Angio Head (10/25/2024 5:57 PM EDT) Anatomical Region Laterality Modality [place] Computed Tomogr aphy Impressions 10/25/2024 6:34 PM EDT Evolving ischemic infarct of the right MCA territory. Subcentimeter hypodensity in the left basal ganglia suggestive of a age- indeterminate lacunar infarct. Significant critical stenosis of the right M1 segment.There is reduced caliber of the right M2 segment superior branch. Occlusion of the left P2 segment [employer] (series 3 image 1 5). CRITICAL RESULT: No. COMMUNICATION: Per this written report. Drafted by Beulah Hu MD on 10/25/2024 6:08 PM Final report signed by Beulah Hu MD on 10/25/2024 6:34 PM Narrative 10/25/2024 6:34 PM EDT CLINICAL INDICATION: Neuro deficit, acute, stroke suspected TECHNIQUE: Routine contiguous axial CT images of the head were obtained without contrast administration. Contrast-enhanced CT angiogram of the head and neck was obtained after administration of intravenous iodinated contrast using 0.6 mm axial slice thickness with multiplanar reformations and maximum intensity projections. In addition, 3D images were created and reviewed. AI Utilization: Total DLP (Dose-Length Product): 2056.29 mGy.cm (accession [id number]), 2056.29 mGy.cm (accession [id number]), 2056.29 mGy.cm (accession [id number]). Please note: The reported value represents the total of one or more individual components during the CT acquisition on this date and at this time, and as such, the same value may appear in more than one CT report depending on the interpreting/reporting physicians. COMPARISON: None. FINDINGS: CT Head without: Hypodense area in the right parietal MCA territory. Subcentimeter hypodensity in the right basal ganglia likely remote lacunar infarct. Subcentimeter hypodensity in the left basal ganglia likely a age-indeterminate lacunar infarct. No mass, mass effect, or midline displacement of structures. Normal ventricular size and configuration. Patent basal cisterns. No displaced or depressed calvarial fractures. The visualized paranasal sinuses and mastoid air cells are clear. CTA Head: Bilateral video games mechanic. Significant critical stenosis of the right M1 segment. There is reduced caliber of the right M2 segment superior branch. Occlusion of the left P2 segment (series 3 image 205). Stenosis of the left P1 segment (series 3 image 144) Bilateral ICA siphon atherosclerosis. No occlusion, dissection, or pseudoaneurysm. The intracranial venous structures are also fairly well opacified and appear unremarkable. CTA Neck: Motion limiting evaluation. There is normal vascular anatomy. There is no evidence of vascular injury, specifically no arterial stenosis, occlusion, dissection, or pseudoaneurysm. There is 30% stenosis of the ICA origins by NASCET criteria. Moderate plaque burden in the left ICA origin. C2-C4 ACDF. Procedure Note Beulah Hu MD - 10/25/2024 CLINICAL INDICATION: Neuro deficit, acute, stroke suspected TECHNIQUE: Routine contiguous axial CT images of the head were obtained withoutcontrast administration. Contrast-enhanced CT angiogram of the head and neck was obtained afteradministration of intravenous iodinated contrast using 0.6 mm axial slicethickness with multiplanar reformations and maximum intensity projections.In addition, 3D images were created and reviewed. AI Utilization: Total DLP (Dose-Length Product): 2056.29 mGy.cm (accession [id number]),2056.29 mGy.cm (accession [id number]), 2056.29 mGy.cm (accession [id number]).Please note: The reported value represents the total of one or moreindividual components during the CT acquisition on this date and at thistime, and as such, the same value may appear in more than one CT reportdepending on the interpreting/reporting physicians. COMPARISON: None. FINDINGS: CT Head without: Hypodense area in the right parietal MCA territory. Subcentimeterhypodensity in the right basal ganglia likely remote lacunar infarct.Subcentimeter hypodensity in the left basal ganglia likely aage-indeterminate lacunar infarct. No mass, mass effect, or midlinedisplacement of structures. Normal ventricular size and configuration.Patent basal cisterns. No displaced or depressed calvarial fractures. The visualized paranasalsinuses and mastoid air cells are clear. CTA Head: Bilateral video games mechanic. Significant critical stenosis of the right R7ocdjaul. There is reduced caliber of the right M2 segment superior branch.Occlusion of the left P2 segment (series 3 image 205). Stenosis of theleft P1 segment (series 3 image 144) Bilateral ICA siphon atherosclerosis.No occlusion, dissection, or pseudoaneurysm. The intracranial venousstructures are also fairly well opacified and appear unremarkable. CTA Neck: Motion limiting evaluation. There is normal vascular anatomy. There is noevidence of vascular injury, specifically no arterial stenosis, occlusion,dissection, or pseudoaneurysm. There is 30% stenosis of the ICA origins byNASCET criteria. Moderate plaque burden in the left ICA origin. C2-C4ACDF. IMPRESSION: Evolving ischemic infarct of the right MCA territory. Subcentimeter hypodensity in the left basal ganglia suggestive of aage- indeterminate lacunar infarct. Significant critical stenosis of the right M1 segment.There is reducedcaliber of the right M2 segment superior branch. Occlusion of the left P2 segment [employer] (series 3 image 1 5). CRITICAL RESULT: No. COMMUNICATION: Per this written report. Drafted by Beulah Hu MD on 10/25/2024 6:08 PM Final report signed by Beulah Hu MD on 10/25/2024 6:34 PM us Scott Rankin MD IMG CT PROCEDURES Final Result * CT Head wo IV contrast (10/25/2024 5:57 PM EDT) Anatomical Region Laterality Modality Head Computed Tomogra phy Impressions 10/25/2024 6:34 PM EDT Evolving ischemic infarct of the right MCA territory. Subcentimeter hypodensity in the left basal ganglia suggestive of a age- indeterminate lacunar infarct. Significant critical stenosis of the right M1 segment.There is reduced caliber of the right M2 segment superior branch. Occlusion of the left P2 segment [employer] (series 3 image 1 5). CRITICAL RESULT: No. COMMUNICATION: Per this written report. Drafted by Beulah Hu MD on 10/25/2024 6:08 PM Final report signed by Beulah Hu MD on 10/25/2024 6:34 PM Narrative 10/25/2024 6:34 PM EDT CLINICAL INDICATION: Neuro deficit, acute, stroke suspected TECHNIQUE: Routine contiguous axial CT images of the head were obtained without contrast administration. Contrast-enhanced CT angiogram of the head and neck was obtained after administration of intravenous iodinated contrast using 0.6 mm axial slice thickness with multiplanar reformations and maximum intensity projections. In addition, 3D images were created and reviewed. AI Utilization: Total DLP (Dose-Length Product): 6.29 mGy.cm (accession [id number]), 6.29 mGy.cm (accession [id number]), 2056.29 mGy.cm (accession [id number]). Please note: The reported value represents the total of one or more individual components during the CT acquisition on this date and at this time, and as such, the same value may appear in more than one CT report depending on the interpreting/reporting physicians. COMPARISON: None. FINDINGS: CT Head without: Hypodense area in the right parietal MCA territory. Subcentimeter hypodensity in the right basal ganglia likely remote lacunar infarct. Subcentimeter hypodensity in the left basal ganglia likely a age-indeterminate lacunar infarct. No mass, mass effect, or midline displacement of structures. Normal ventricular size and configuration. Patent basal cisterns. No displaced or depressed calvarial fractures. The visualized paranasal sinuses and mastoid air cells are clear. CTA Head: Bilateral video games mechanic. Significant critical stenosis of the right M1 segment. There is reduced caliber of the right M2 segment superior branch. Occlusion of the left P2 segment (series 3 image 205). Stenosis of the left P1 segment (series 3 image 144) Bilateral ICA siphon atherosclerosis. No occlusion, dissection, or pseudoaneurysm. The intracranial venous structures are also fairly well opacified and appear unremarkable. CTA Neck: Motion limiting evaluation. There is normal vascular anatomy. There is no evidence of vascular injury, specifically no arterial stenosis, occlusion, dissection, or pseudoaneurysm. There is 30% stenosis of the ICA origins by NASCET criteria. Moderate plaque burden in the left ICA origin. C2-C4 ACDF. Procedure Note Beulah Hu MD - 10/25/2024 CLINICAL INDICATION: Neuro deficit, acute, stroke suspected TECHNIQUE: Routine contiguous axial CT images of the head were obtained withoutcontrast administration. Contrast-enhanced CT angiogram of the head and neck was obtained afteradministration of intravenous iodinated contrast using 0.6 mm axial slicethickness with multiplanar reformations and maximum intensity projections.In addition, 3D images were created and reviewed. AI Utilization: Total DLP (Dose-Length Product): 6.29 mGy.cm (accession [id number]),6.29 mGy.cm (accession [id number]), 2056.29 mGy.cm (accession [id number]).Please note: The reported value represents the total of one or moreindividual components during the CT acquisition on this date and at thistime, and as such, the same value may appear in more than one CT reportdepending on the interpreting/reporting physicians. COMPARISON: None. FINDINGS: CT Head without: Hypodense area in the right parietal MCA territory. Subcentimeterhypodensity in the right basal ganglia likely remote lacunar infarct.Subcentimeter hypodensity in the left basal ganglia likely aage-indeterminate lacunar infarct. No mass, mass effect, or midlinedisplacement of structures. Normal ventricular size and configuration.Patent basal cisterns. No displaced or depressed calvarial fractures. The visualized paranasalsinuses and mastoid air cells are clear. CTA Head: Bilateral video games mechanic. Significant critical stenosis of the right P1wqlwmiz. There is reduced caliber of the right M2 segment superior branch.Occlusion of the left P2 segment (series 3 image 205). Stenosis of theleft P1 segment (series 3 image 144) Bilateral ICA siphon atherosclerosis.No occlusion, dissection, or pseudoaneurysm. The intracranial venousstructures are also fairly well opacified and appear unremarkable. CTA Neck: Motion limiting evaluation. There is normal vascular anatomy. There is noevidence of vascular injury, specifically no arterial stenosis, occlusion,dissection, or pseudoaneurysm. There is 30% stenosis of the ICA origins byNASCET criteria. Moderate plaque burden in the left ICA origin. C2-C4ACDF. IMPRESSION: Evolving ischemic infarct of the right MCA territory. Subcentimeter hypodensity in the left basal ganglia suggestive of aage- indeterminate lacunar infarct. Significant critical stenosis of the right M1 segment.There is reducedcaliber of the right M2 segment superior branch. Occlusion of the left P2 segment [employer] (series 3 image 1 5). CRITICAL RESULT: No. COMMUNICATION: Per this written report. Drafted by Beulah Hu MD on 10/25/2024 6:08 PM Final report signed by Beulah Hu MD on 10/25/2024 6:34 PM Scott Rankin MD IMG CT PROCEDURES Final Result * (ABNORMAL) POCT glucose meter (10/25/2024 5:42 PM EDT) POCT Glucose 120(H) 74 - 99 mg/dL 10/25/2024 5:43 PM EDT [facility] Comment:Accuracy of a glucos e result obtained from a capillary whole blood specimen relies upon adequate, non-compromised capillary blood flow. If the capillary glucose result is not consistent with the patient's clinical signs and symptoms, glucose testing should be repeated with either an arterial or venous sample on the glucometer or sent to the main labortory for testing. Comment 10/25/2024 5:43 PM EDT [facility] Jewelry Designer ID Tanika Swain [phone] 5:43 PM EDT [facility] Device ID [id number] 10/25/2024 5:43 PM EDT [facility] Specimen Type POC Capillary 10/25/2024 5:43 PM EDT [facility] Blood Capillary blood specimen / Unknown 10/25/2024 5:42 PM EDT 10/25/2024 5:43 PM EDT us Generic Provider Poct LAB POINT OF CARE TEST DOCKED DEVICE UNSOLICITED RESULTS Final Result [facility] [address] [place] [address] documented in this encounter Visit Diagnoses Diagnosis Stroke (CMS/HCC)- Primary Unspecified cerebral artery occlusion with cerebral infarction Cerebrovascular accident (CVA), unspecified mechanism (CMS/HCC) Aphasia Aphasia HLD (hyperlipidemia) Other and unspecified hyperlipidemia GERD (gastroesophageal reflux disease) Esophageal reflux [place] (obstructive sleep apnea) Obstructive sleep apnea (adult) (pediatric) Former smoker Personal history of tobacco use, presenting hazards to health Obesity Obesity, unspecified Electrolyte abnormality Electrolyte and fluid disorders not elsewhere classified Feeding difficulties Feeding difficulties and mismanagement Hypothyroid Unspecified hypothyroidism documented in this encounter Admitting Diagnoses Diagnosis Aphasia documented in this encounter Administered Medications Inactive Administered Medications - up to 3 most recent administrations Medication Order MAR Action Action Date Dose Rate Site acetaminophen (Tylenol) tablet 650 mg 650 mg, Oral, Every 6 hours PRN, Starting on 10/26/24 at 0633, Until 10/27/24 at 1921, Routine, mild pain, headaches, fever aspirin chewable tablet 81 mg 81 mg, Oral, Daily, First dose (after last modification) on 10/26/24 at 0000, Until Discontinued, Routine Given 10/27/2024 8:12 AM EDT 81 mg Given 10/25/2024 11:43 PM EDT 81 mg atorvastatin (Lipitor) tablet 40 mg 40 mg, Oral, Nightly, First dose on 10/25/24 at 2100, Until Discontinued, Routine Given 10/26/2024 10:10 PM EDT 40 mg Given 10/25/2024 9:39 PM EDT 40 mg calcium carbonate (Tums) chewable tablet 500 mg 500 mg, Oral, 4 times daily PRN, Starting on 10/26/24 at 1415, Until Sun10/27/24 at 1921, Routine, indigestion, heartburn Given 10/26/2024 2:19 PM EDT 500 mg calcium gluconate 1 g in sodium chloride 0.9% 100 mL IVPB (vial adapter required) 1 g, Intravenous, Every 30 min, 2 doses, First dose on Sun10/26/24 at 0730, Last dose on Sun10/26/24 at 0800, at 240 mL/hr, Administer over 30 Minutes, Routine New Bag 10/26/2024 8:00 AM EDT 1 g 240 mL/hr New Bag 10/26/2024 7:51 AM EDT 1 g 240 mL/hr calcium gluconate 1 g in sodium chloride 0.9% 100 mL IVPB (vial adapter required) 1 g, Intravenous, Once, 1 dose, On Sun10/27/24 at 0615, at 240 mL/hr, Administer over 30 Minutes, STAT New Bag 10/27/2024 6:42 AM EDT 1 g 240 mL/hr clopidogrel (Plavix) tablet 75 mg 75 mg, Oral, Daily, First dose (after last modification) on Sun10/26/24 at 0000, Until Discontinued, Routine Given 10/27/2024 8:12 AM EDT 75 mg Given 10/25/2024 11:43 PM EDT 75 mg enoxaparin (Lovenox) syringe 40 mg 40 mg, Subcutaneous, Daily, First dose on Sun10/26/24 at 1245, Until Discontinued, Routine Given 10/27/2024 8:12 AM EDT 40 mg Right Lower Abdomen Given 10/26/2024 12:41 PM EDT 40 mg L eft Lower Abdomen hydrALAZINE (Apresoline) injection 10 mg 10 mg, Intravenous, Every 1 hour PRN, Starting on 10/25/24 at 1834, Until Sun10/27/24 at 1921, Routine, high blood pressure, for non-TPA SBP > 220 & DBP > 110 and for tPA patient PRN SBP > 180 and DBP >105, Second-Line Given 10/25/2024 9:39 PM EDT 10 mg hydrALAZINE (Apresoline) injection 20 mg 20 mg, Intravenous, Every 1 hour PRN, Starting on 10/25/24 at 1834, Until 10/27/24 at 1921, Routine, high blood pressure, for non-TPA SBP > 220 & DBP > 110 and for tPA patient PRN SBP > 180 and DBP >105, Second-Line iohexol (OMNIPaque) 350 MG/ML injection 100 mL 100 mL, Intravenous, Once in imaging, 1 dose, Starting on 10/25/24 at 1742, Until 10/25/24 at 1743, Routine, Imaging Protocol Orders Given 10/25/2024 5:43 PM EDT 60 mL iohexol (OMNIPaque) 350 MG/ML injection 100 mL 100 mL, Intravenous, Once in imaging, 1 dose, Starting on 10/25/24 at 2015, Until 10/27/24 at 1921, Routine, Imaging Protocol Orders labetalol (Normodyne,Trandate) injection 10 mg 10 mg, Intravenous, Every 1 hour PRN, Starting on 10/25/24 at 1834, Until 10/27/24 at 1921, Routine, high blood pressure, for non-TPA SBP > 220 & DBP > 110 and for tPA patient PRN SBP > 180 and DBP >105, First-Line, HOLD for HR< 60 labetalol (Normodyne,Trandate) injection 20 mg 20 mg, Intravenous, Every 1 hour PRN, Starting on 10/25/24 at 1834, Until 10/27/24 at 1921, Routine, high blood pressure, for non-TPA SBP > 220 & DBP > 110 and for tPA patient PRN SBP > 180 and DBP >105, First-Line, HOLD for HR< 60 LORazepam (Ativan) tablet 1 mg 1 mg, Oral, Once PRN Procedure, 1 dose, Starting on 10/26/24 at 1811, Until 10/26/24 at 2103, Routine, anxiety Given 10/26/2024 9:03 PM EDT 1 mg magnesium sulfate IVPB 4 g 4 g, Intravenous, Once, 1 dose, On 10/25/24 at 1935, Routine New Bag 10/25/2024 8:39 PM EDT 4 g 25 mL/hr mupirocin (Bactroban) 2 % ointment 1 Application Each Nostril, 2 times daily, 10 doses, First dose on 10/26/24 at 0145, Last dose on [place] 10/30/24 at 0900, Routine Given 10/27/2024 8:12 AM EDT 1 Application Given 10/26/2024 10:10 PM EDT 1 Application Given 10/26/2024 8:37 AM EDT 1 Application ondansetron (Zofran) 4 MG/2ML injection - Pyxis Override Pull 1 dose, Starting on 10/25/24 at 2008, Until 10/25/24 at 2013 ondansetron (Zofran) injection 4 mg 4 mg, Intravenous, Once, 1 dose, On [facility] 10/25/24 at 2100, Routine Given 10/25/2024 8:13 PM EDT 4 mg ondansetron (Zofran) injection 4 mg 4 mg, Intravenous, Every 6 hours PRN, Starting on 10/26/24 at 0633, Until 10/27/24 at 1921, Routine, vomiting, nausea potassium chloride CR (Klor-Con) ER tablet 40 mEq 40 mEq, Oral, Once, 1 dose, On 10/27/24 at 0615, STAT Given 10/27/2024 6:42 AM EDT 40 mEq potassium chloride IVPB 10 mEq 10 mEq, Intravenous, Every 1 hour, 4 doses, First dose on [facility] 10/25/24 at 2100, Last dose on [place] 10/26/24 at 0000, RoutineIndications:Hypokalemia New Bag 10/26/2024 12:51 AM EDT 10 mEq 100 mL/hr New Bag 10/25/2024 11:43 PM EDT 10 mEq 100 mL/hr New Bag 10/25/2024 10:47 PM EDT 10 mEq 100 mL/hr senna-docusate (Catie-Colace) 8.6-50 MG per tablet 1 tablet 1 tablet, Oral, 2 times daily, First dose on 10/26/24 at 0900, Until Discontinued, Routine Given 10/27/2024 8:12 AM EDT 1 tablet Given 10/26/2024 10:10 PM EDT 1 tablet Given 10/26/2024 8:37 AM EDT 1 tablet sodium chloride 0.9 % flush 10 mL 10 mL, Intravenous, Every 12 hours, First dose on 10/25/24 at 1840, Until Discontinued, Routine Given 10/26/2024 6:29 PM EDT 10 mL Given 10/26/2024 5:40 AM EDT 10 mL Given 10/25/2024 6:40 PM EDT 10 mL sodium chloride 0.9 % flush 10 mL 10 mL, Intravenous, As needed, Starting on 10/25/24 at 1833, Until 10/27/24 at 1921, Routine, line care sodium chloride 0.9 % infusion 50 mL/hr, Intravenous, Continuous, Starting on 10/25/24 at 2300, Until 10/26/24 at 0745, Routine New Bag 10/25/2024 11:43 PM EDT 50 mL/hr 50 mL/ hr sodium phosphates 30 mmol in sodium chloride 0.9 % 500 mL IVPB 30 mmol, Intravenous, Once, 1 dose, On 10/25/24 at 2100, Routine New Bag 10/25/2024 8:40 PM EDT 30 mmol 92.5 mL/hr documented in this encounter Active and Recently Administered Medications Times are shown in EDT. Scheduled Medication Order 10/25/2024 10/26/2024 10/27/2024 aspirin chewable tablet 81 mg 81 mg, Oral, Daily, First dose (after last modification) on 10/26/24 at 0000, Until Discontinued, Routine 2343 (Given - Provider: Cyrus Corona) 0812 (Given - Provider: Renu Shahid, LEEANNE) atorvastatin (Lipitor) tablet 40 mg 40 mg, Oral, Nightly, First dose on 10/25/24 at 2100, Until Discontinued, Routine 2139 (Given - Provider: Cyrus Corona) 2210 (Given - Provider: Real Buitrago RN) calcium gluconate 1 g in sodium chloride 0.9% 100 mL IVPB (vial adapter required) (COMPLETED) 1 g, Intravenous, Every 30 min, 2 doses, First dose on 10/26/24 at 0730, Last dose on 10/26/24 at 0800, at 240 mL/hr, Administer over 30 Minutes, Routine 0751 (New Bag - Provider: Shanique Sandoval, LEEANNE)0800 (New Bag - Provider: Shanique Sandoval RN) calcium gluconate 1 g in sodium chloride 0.9% 100 mL IVPB (vial adapter required) (COMPLETED) 1 g, Intravenous, Once, 1 dose, On 10/27/24 at 0615, at 240 mL/hr, Administer over 30 Minutes, STAT 0642 (New Bag - Provider: Real Buitrago, LEEANNE) clopidogrel (Plavix) tablet 75 mg (CANCELED) 75 mg, Oral, Daily, First dose (after last modification) on 10/26/24 at 0000, Until Discontinued, Routine 2343 (Given - Provider: Cyrus Corona) 0812 (Given - Provider: Renu Shahid, RN) enoxaparin (Lovenox) syringe 40 mg 40 mg, Subcutaneous, Daily, First dose on 10/26/24 at 1245, Until Discontinued, Routine 1241 (Given - Provider: Shanique Sandoval RN) 0812 (Given - Provider: Renu Shahid RN) iohexol (OMNIPaque) 350 MG/ML injection 100 mL (COMPLETED) 100 mL, Intravenous, Once in imaging, 1 dose, Starting on 10/25/24 at 1742, Until 10/25/24 at 1743, Routine, Imaging Protocol Orders 1743 (Given - Provider: Ed Emerson - Comment: 60 @ 5) iohexol (OMNIPaque) 350 MG/ML injection 100 mL 100 mL, Intravenous, Once in imaging, 1 dose, Starting on 10/25/24 at 2015, Until 10/27/24 at 1921, Routine, Imaging Protocol Orders magnesium sulfate IVPB 4 g (COMPLETED) 4 g, Intravenous, Once, 1 dose, On 10/25/24 at 1935, Routine 2039 (New Bag - Provider: Cyrus Corona) mupirocin (Bactroban) 2 % ointment 1 Application Each Nostril, 2 times daily, 10 doses, First dose on 10/26/24 at 0145, Last dose on [place] 10/30/24 at 0900, Routine 0200 (Not Given - Provider: Cyrus Corona - Reason: Patient/family refused)0837 (Given - Provider: Shanique Sandoval, LEEANNE)2210 (Given - Provider: Real Buitrago, LEEANNE) 0812 (Given - Provider: Renu Shahid, LEEANNE) ondansetron (Zofran) injection 4 mg (COMPLETED) 4 mg, Intravenous, Once, 1 dose, On 10/25/24 at 2100, Routine 2012 (Given - Provider: Cyrus Corona) potassium chloride CR (Klor-Con) ER tablet 40 mEq (COMPLETED) 40 mEq, Oral, Once, 1 dose, On 10/27/24 at 0615, STAT 0642 (Given - Provid er: Real Buitrago, LEENANE) potassium chloride IVPB 10 mEq (COMPLETED) 10 mEq, Intravenous, Every 1 hour, 4 doses, First dose on 10/25/24 at 2100, Last dose on 10/26/24 at 0000, Routine 2138 (New Bag - Provider: Cyrus Corona)2247 (New Bag - Provider: Cyrus Corona)2343 (New Bag - Provider: Cyrus Corona) 0051 (New Bag - Provider: Cyrus Corona) senna-docusate (Catie-Colace) 8.6-50 MG per tablet 1 tablet 1 tablet, Oral, 2 times daily, First dose on 10/26/24 at 0900, Until Discontinued, Routine 0837 (Given - Provider: Shanique Sandoval, LEEANNE)2210 (Given - Provider: Real Buitrago, LEEANNE - Comment: in mri) 0812 (Given - Provider: Renu Shahid RN) sodium chloride 0.9 % flush 10 mL(Linked Group 1) 10 mL, Intravenous, Every 12 hours, First dose on 10/25/24 at 1840, Until Discontinued, Routine 1840 (Given - Provider: Robin Johnson RN) 0540 (Given - Provider: Cyrus Corona)1829 (Given - Provider: Shanique Sandoval RN) 0902 (Canceled Entry - Provider: Renu Shahid RN)184 (Canceled Entry - Provider: Automatic Discharge Provider - Comment: Automatically canceled at discontinue of medication order) sodium phosphates 30 mmol in sodium chloride 0.9 % 500 mL IVPB (COMPLETED) 30 mmol, Intravenous, Once, 1 dose, On 10/25/24 at 2100, Routine 2039 (New Bag - Provider: Cyrus Corona) Continuous Medication Order 10/25/2024 10/26/2024 10/27/2024 sodium chloride 0.9 % infusion (CANCELED) 50 mL/hr, Intravenous, Continuous, Starting on 10/25/24 at 2300, Until 10/26/24 at 0745, Routine 2343 (New Bag - Provider: Cyrus Corona) PRN Medication Order 10/25/2024 10/26/2024 10/27/2024 acetaminophen (Tylenol) tablet 650 mg 650 mg, Oral, Every 6 hours PRN, Starting on 10/26/24 at 0633, Until 10/27/24 at 1921, Routine, mild pain, headaches, fever calcium carbonate (Tums) chewable tablet 500 mg 500 mg, Oral, 4 times daily PRN, Starting on 10/26/24 at 1415, Until 10/27/24 at 192, Routine, indigestion, heartburn 1419 (Given - Provider: Shanique Sandoval RN) 0055 (Not Given - Provider: Real Buitrago RN - Reason: Hold for condition: must add comment - Comment: pulled on wrong patient) hydrALAZINE (Apresoline) injection 10 mg(Linked Group 2) 10 mg, Intravenous, Every 1 hour PRN, Starting on 10/25/24 at 1834, Until 10/27/24 at 1921, Routine, high blood pressure, for non-TPA SBP > 220 & DBP > 110 and for tPA patient PRN SBP > 180 and DBP >105, Second-Line 2138 (Given - Provider: Cyrus Corona) hydrALAZINE (Apresoline) injection 20 mg(Linked Group 2) 20 mg, Intravenous, Every 1 hour PRN, Starting on 10/25/24 at 1834, Until 10/27/24 at 1921, Routine, high blood pressure, for non-TPA SBP > 220 & DBP > 110 and for tPA patient PRN SBP > 180 and DBP >105, Second-Line 2138 (See Alternative - Provider: Cyrus Corona) labetalol (Normodyne,Trandate) injection 10 mg(Linked Group 3) 10 mg, Intravenous, Every 1 hour PRN, Starting on 10/25/24 at 1834, Until 10/27/24 at 1921, Routine, high blood pressure, for non-TPA SBP > 220 & DBP > 110 and for tPA patient PRN SBP > 180 and DBP >105, First-Line, HOLD for HR< 60 labetalol (Normodyne,Trandate) injection 20 mg(Linked Group 3) 20 mg, Intravenous, Every 1 hour PRN, Starting on 10/25/24 at 1834, Until Sun10/27/24 at 192, Routine, high blood pressure, for non-TPA SBP > 220 & DBP > 110 and for tPA patient PRN SBP > 180 and DBP >105, First-Line, HOLD for HR< 60 LORazepam (Ativan) tablet 1 mg (COMPLETED) 1 mg, Oral, Once PRN Procedure, 1 dose, Starting on Sun10/26/24 at 1811, Until Sun10/26/24 at 210, Routine, anxiety 2102 (Given - Provider: Real Buitrago, RN) ondansetron (Zofran) injection 4 mg 4 mg, Intravenous, Every 6 hours PRN, Starting on 10/26/24 at 0633, Until Sun10/27/24 at 192, Routine, vomiting, nausea sodium chloride 0.9 % flush 10 mL(Linked Group 1) 10 mL, Intravenous, As needed, Starting on 10/25/24 at 1833, Until Sun10/27/24 at 192, Routine, line care Linked Groups Order Group 1: Insert peripheral IV (CANCELED) Once, On 10/25/24 at 1834, For 1 occurrence And Saline lock IV (CANCELED) Once, On 10/25/24 at 1834, For 1 occurrence And sodium chloride 0.9 % flush 10 mLJump to med 10 mL, Intravenous, Every 12 hours, First dose on 10/25/24 at 1840, Until Discontinued, Routine And sodium chloride 0.9 % flush 10 mLJump to med 10 mL, Intravenous, As needed, Starting on 10/25/24 at 1833, Until Sun10/27/24 at 192, Routine, line care Group 2: hydrALAZINE (Apresoline) injection 10 mgJump to med 10 mg, Intravenous, Every 1 hour PRN, Starting on 10/25/24 at 1834, Until Sun10/27/24 at 1921, Routine, high blood pressure, for non-TPA SBP > 220 & DBP > 110 and for tPA patient PRN SBP > 180 and DBP >105, Second-Line Or hydrALAZINE (Apresoline) injection 20 mgJump to med 20 mg, Intravenous, Every 1 hour PRN, Starting on 10/25/24 at 1834, Until 10/27/24 at 1921, Routine, high blood pressure, for non-TPA SBP > 220 & DBP > 110 and for tPA patient PRN SBP > 180 and DBP >105, Second-Line Group 3: labetalol (Normodyne,Trandate) injection 10 mgJump to med 10 mg, Intravenous, Every 1 hour PRN, Starting on 10/25/24 at 1834, Until Sun10/27/24 at 1921, Routine, high blood pressure, for non-TPA SBP > 220 & DBP > 110 and for tPA patient PRN SBP > 180 and DBP >105, First-Line, HOLD for HR< 60 Or labetalol (Normodyne,Trandate) injection 20 mgJump to med 20 mg, Intravenous, Every 1 hour PRN, Starting on 10/25/24 at 1834, Until Sun10/27/24 at 1921, Routine, high blood pressure, for non-TPA SBP > 220 & DBP > 110 and for tPA patient PRN SBP > 180 and DBP >105, First-Line, HOLD for HR< 60 documented in this encounter Additional Health Concerns Assessment Noted Time A Body Mass Index follow-up plan has been documented for the patient 10/27/2024 3:35 PM EDT documented as of this encounter 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
--- OUTSIDE RECORDS SUMMARY | 2024-10-31 15:30 | XMS_ITS | Encounter Summary ---
Author Organization Healthcare Address [address] [place] [address] Care Team Providers Care Shank Paperer Name Role Phone Pcp, No Primary Care Provider Unavailabl e Marzena Sosa LPN Unavailable Unavailabl e Reason for Visit * Consultation (Routine) - Closed Specialty Diagnoses / Procedures Referred By Lito sibley Referred To Contact Neurology Diagnoses Aphasia Liliane Hussein MD [address] [place] [address] Phone: tel: fax: Referral ID Status Reason Start Date Expiration Date V isits Requested Visits Authorized [id number] Closed Specialty Services Required 10/27/2024 04/28/2026 1 1 Encounter Details Date Type Department Care Team (Late st Contact Info) Description 10/31/2024 3:30 PM EDT Office [facility] [place] [facility] [address], [address] [place] [address] Sofia Dillard, YASMANY [address] [place] [address] TIA (transient ischemic attack) (Primary [...] any time in the past 12 m [facility], were you homeless or living in a assisted (including now)? No 10/28/2024 Utilities Answer Date [...] recorded in the chart. Patient was seen [id number] within 7 days after discharge. [facility] Specialty: [...] Past Medical History: Diagnosis Date Esophageal cancer ([facility]) Hypothyroidism Stroke ([facility]) 10/25/2024 [2] History reviewed. No pertinent [...] Description 01/21/2025 9:20 AM EDT Office Visit [facility] [place] Larry [address] [place] [address] Nissa eHrzog PA [address] [place] [address] 06/10/2025 9:00 AM EST Office Visit [place] [facility] [address] [place] [address] Korey Fernandes MD [address] [place] [address] documented as of this encounter Visit Diagnoses [...] documented as of this encounter Care Teams Shank Paperer Relationship Specialty Start Date End Date Pcp, No [address] [place] [address] PCP - General Family Medicine 09/26/24 Marzena Sosa LPN [facility] TCM Nurse 10/28/24 documented as of this encounter
[2024-11-04 20:23] LABS: Thyroid Stimulating Hormone 6.95 uIU/mL (0.465-4.68)
--- OUTSIDE RECORDS SUMMARY | 2024-11-05 10:09 | XMS_ITS | Encounter Summary ---
Author Organization Healthcare Address [address] [place] [address] Care Team Providers Care Per Diem Physical Therapist Name Role Phone Pcp, No Primary Care Provider Unavailabl e Encounter Details Date Type Department Care Team (Latest Contact Info) Description 10/25/2024 Travel Social History Tobacco Use Types Packs/Day Years Used Date Smoking Tobacco: Never Assessed Sex and Gender Information Value Date Recorded Sex Assigned at Not on file Legal Sex Male 4:15 PM EDT Gender Identity Not on file Sexual Orientation Not on file documented as of this encounter Plan of Treatment Upcoming Encounters Date Type Department Care Team (Late st Contact Info) Description 01/21/2025 9:20 AM EDT Office Visit [facility] [place] Larry [address] [place] [address] Nissa Herzog PA [address] [place] [address] 06/10/2025 9:00 AM EST Office Visit [place] [facility] [address], [address] [place] [address] Korey Fernandes MD [address] [place] [address] documented as of this encounter Visit Diagnoses Not on filedocumented in this encounter Additional Health Concerns Assessment Noted Time A Body Mass Index follow-up plan has been documented for the patient 10/27/2024 3:35 PM EDT documented as of this encounter Care Teams Per Diem Physical Therapist Relationship Specialty Start Date End Date Pcp, No [address] [place] [address] PCP - General Family Medicine 09/26/24 documented as of this encounter
--- OUTSIDE RECORDS SUMMARY | 2024-11-05 10:09 | XMS_ITS ---
Author Organization [facility] Address [address] [place] [address] Care Team Providers Care Porter Head Name Role Phone Pcp, No Primary Care Provider UnavailMarzena Elliott LPN Unavailabl julianna Transitional Care Management Status:Active (Active) Start date:10/28/2024 Enrollment date:10/28/2024 Enrollment reason:Identified using hospital discharge data Overview This episode type is for outpatient care managers enrolling patients in the [facility] Transitional Care Management program. Case Team Name Relationship Phone Marzena Sosa LPN(Responsible Staff) TCM Nurs e Continued Care and Services Coordination
--- OUTSIDE RECORDS SUMMARY | 2024-11-05 10:09 | XMS_ITS | Encounter Summary ---
Author Organization Healthcare Address [address] [place] [address] Care Team Providers Care Extension Course Counselor Name Role Phone Pcp, No Primary Care Provider Unavailabl e Encounter Details Date Type Department Care Team (Latest Contact Info) Description 10/26/2024 Travel Social History Tobacco Use Types Packs/Day [...] Description 01/21/2025 9:20 AM EDT Office Visit [facility] [place] Larry [address] [facility] [place] [address] Nissa Herzog PA [address] [place] [address] 06/10/2025 9:00 AM EST Office Visit [place] [facility] [address], [address]st [place] [address] Korey Fernandes MD [address] [place] [address] documented as of this encounter Visit Diagnoses Not on filedocumented in this encounter Additional Health Concerns Assessment Noted Time A Body Mass Index follow-up plan has been documented for the patient 10/27/2024 3:35 PM EDT documented as of this encounter Care Teams Extension Course Counselor Relationship Specialty Start Date End Date Pcp, No [address] [place] [address] PCP - General Family Medicine 09/26/24 documented as of this encounter
--- OUTSIDE RECORDS SUMMARY | 2024-11-05 10:09 | XMS_ITS | Encounter Summary ---
Author Organization Healthcare Address [address] [place] [address] Care Team Providers Care Digital X Ray Service Engineer Name Role Phone Pcp, No Primary Care Provider Unavailabl e Marzena Sosa LPN Unavailable Unavailabl e Encounter Details Date Type Department Care Team (Latest Contact Info) Description 10/31/2024 Travel Social History Tobacco Use Types Packs/Day Years Used Date Smoking Tobacco: Former Cigarettes 3 33 1 967 - 2000 Passive Smoke Exposure: Past Alcohol Use Standard Drinks/Week Comments Not Currently [...] any time in the past 12 m [facility], were you homeless or living in a halfway (including now)? No 10/28/2024 Utilities Answer Date [...] on file documented as of this encounter Functional Status * Over the [...] Antonio Zaragoza documented as of this encounter Plan of Treatment Upcoming Encounters Date Type Department Care Team (Late st Contact Info) Description 01/21/2025 9:20 AM EDT Office Visit [facility] [place] Larry [address] [place] [address] Nissa Herzog PA [address] [place] [address] 06/10/2025 9:00 AM EST Office Visit [place] [facility] [address], [address]st [place] [address] Korey Fernandes MD [address] [place] [address] documented as of this encounter Visit Diagnoses Not on filedocumented in this encounter Additional Health Concerns Assessment Noted Time PHQ-9 Depression Total Score: 1 11/01/19 3:42 PM EDT A fall risk assessment has been complete d for the patient 10/31/2024 3:42 PM EDT A Body Mass Index follow-up plan has been documented for the patient 11/03/2024 7:42 AM EDT documented as of this encounter Care Teams Digital X Ray Service Engineer Relationship Specialty Start Date End Date Pcp, [place] [address] PCP - General Family Medicine 09/26/24 Marzena Sosa LPN [facility] TCM Nurse 10/28/24 documented as of this encounter
--- OUTSIDE RECORDS SUMMARY | 2024-11-05 10:09 | XMS_ITS | Encounter Summary ---
Author Organization Healthcare Address [address] [place] [address] Care Team Providers Care Inspection And Testing Supervisor Name Role Phone Pcp, No Primary Care Provider Unavailabl e Marzena Sosa LPN Unavailable Unavailabl e Encounter Details Date Type Department Care Team (Late st Contact Info) Description 10/25/2024 Orders Only External Location [address] [place] [address] Provider, External Social History Tobacco Use Types Packs/Day Years Used Date Smoking Tobacco: Never Assessed Humiliation, Afraid, Rape, a nd Kick questionnaire [...] any time in the past 12 m [facility], were you homeless or living in a detention (including now)? No 10/28/2024 Utilities Answer Date [...] as of this encounter Functional Status * Calculated C-SSRS Risk Score (Lifetime/Recent) Answer Date of Assessment Author No Risk Indicated 10/27/2024 8:00 AM EDT Renu Shahid RN * Question Answer Date of Assessment Author 1. Wish to be (Past 1 Month) No 10/27/2024 8:00 AM MELBAT Renu Shahid RN 2. Non-Specific Active Suici isabel Thoughts (Past 1 Month) No 10/27/2024 8:00 AM EDT Deloris Shahid RN 6. Suicidal Behavior (Lifetime) No 8:00 AM EDT Renu Shahid RN documented as of this encounter Plan of Treatment Upcoming Encounters Date Type Department Care Team (Late st Contact Info) Description 01/21/2025 9:20 AM EDT Office Visit [facility] [place] [address] [place] [address] Nissa Herzog PA [address] [place] [address] 06/10/2025 9:00 AM EST Office Visit [place] [facility] [address], [address] [place] [address] Korey Fernandes MD [address] [place] [address] documented as of this encounter Procedures Procedure Name Priority Date/Time Associated Diagnosis Comments CT THORACIC OUTSIDE IMAGES 10/25/2024 3:04 PM EDT documented in this encounter Results * CT THORACIC OUTSIDE IMAGES (10/25/2024 3:04 PM EDT) Anatomical Region Laterality Modality Computed Tomogra phy 10/25/2024 3:04 PM EDT us External Provider IMG CT PROCEDURES Final Result documented in this encounter Visit Diagnoses Not on filedocumented in this encounter Additional Health Concerns Assessment Noted Time A Body Mass Index follow-up plan has been documented for the patient 10/27/2024 3:35 PM EDT documented as of this encounter Care Teams Inspection And Testing Supervisor Relationship Specialty Start Date End Date Pcp, [place] [address] PCP - General Family Medicine 09/26/24 Marzena Sosa LPN [facility] TCM Nurse 10/28/24 documented as of this encounter
--- OUTSIDE RECORDS SUMMARY | 2024-11-05 10:10 | XMS_ITS | Encounter Summary ---
Author Organization Healthcare Address [address] [place] [address] Care Team Providers Care Retail Banker Name Role Phone Pcp, No Primary Care Provider Unavailabl e Marzena Sosa LPN Unavailable Unavailabl e Encounter Details Date Type Department Care Team (Late st Contact Info) Description 10/27/2024 Lab Requisition [facility] [address] [place] [address] Preet Gay MD [address] [facility] [address] [place] [address] Encounter for general adult medical examination without abnormal findings Social History Tobacco Use Types Packs/Day Years Used Date Smoking Tobacco: Former Cigarettes Alcohol Use Standard Drinks/Week Comments Not Currently [...] any time in the past 12 m [facility], were you homeless or living in a skilled nursing (including now)? No 10/28/2024 Utilities Answer Date [...] 10/27/2024 8:00 AM Renu Means RN * Question Answer Date of Assessment Author 1. Wish to be (Past 1 Month) No 10/27/2024 8:00 AM Renu Means, RN 2. Non-Specific Active Suici isabel Thoughts (Past 1 Month) No 10/27/2024 8:00 AM Deloris Means RN 6. Suicidal Behavior (Lifetime) No 8:00 AM Renu Means RN documented as of this encounter Plan of Treatment Upcoming Encounters Date Type Department Care Team (Late st Contact Info) Description 01/21/2025 9:20 AM EDT Office Visit [facility] [place] Larry [address] [place] [address] Nissa Herzog PA [address] [place] [address] 06/10/2025 9:00 AM EST Office Visit [place] [facility] [address], [address] [place] [address] Korey Fernandes MD [address] [place] [address] documented as of this encounter Procedures Procedure Name Priority Date/Time Associated Diagnosis Comments MULTI DRUG RESISTANCE TEST Routine 10/27/2024 11:57 AM EDT Encounter for general adult medical examination without abnormal findings documented in this encounter Results * Multi Drug Resistance Test (10/27/2024 11:57 AM EDT) Culture No growth at day 1 10/28/2024 1:54 PM EDT [facility] Swab (Nares and Catie Rectal) 10/27/2024 11:57 AM EDT 10/27/2024 12:58 PM EDT Narrative [facility] - 10/28/2024 1:54 PM EDT This test was developed and its performance characteristics determined by the [facility]. Although the media is FDA-approved, it is not FDA-approved for all specimen types submitted. The FDA has determined that such clearance or approval is not necessary. This test is used for surveillance purposes. It should not be regarded as investigational or for research. The [facility] is certified under the Clinical Laboratory Improvement Amendments of 1988 (CLIA-88) as qualified to perform high complexity clinical laboratory testing. Preet Gay MD LAB MICROBIOLOGY - GEN ERAL ORDERABLES Final Result [facility] [address] [place] [address] documented in this encounter Visit Diagnoses Diagnosis Encounter for general adult medical examination without abnormal findings documented in this encounter Additional Health Concerns Assessment Noted Time A Body Mass Index follow-up plan has been documented for the patient 10/27/2024 3:35 PM EDT documented as of this encounter Care Teams Retail Banker Relationship Specialty Start Date End Date Pcp, No [address] [place] [address] PCP - General Family Medicine 09/26/24 Marzena Sosa LPN [facility] TCM Nurse 10/28/24 documented as of this encounter
--- OUTSIDE RECORDS SUMMARY | 2024-11-05 10:10 | XMS_ITS | Encounter Summary ---
Author Organization Healthcare Address [address] [place] [address] Care Team Providers Care Search Engine Optimization Strategist Name Role Phone Pcp, No Primary Care Provider Unavailabl e Encounter Details Date Type Department Care Team (Latest Contact Info) Description 10/27/2024 Travel Social History Tobacco Use Types Packs/Day Years Used Date Smoking Tobacco: Former Cigarettes Alcohol Use Standard Drinks/Week Comments Not Currently 0 (1 standard drink = 0.6 oz pur e alcohol) Humiliation, Afraid, Rape, a nd Kick questionnaire [...] any time in the past 12 m [facility], were you homeless or living in a correction (including now)? No 10/28/2024 Utilities Answer Date Recorded In the past 12 months has th e [employer], gas, oil, or water [employer] threatened to shut off services in your [...] 1 Month) No 10/27/2024 8:00 AM EDT Renu Shahid RN 2. Non-Specific Active Suici isabel Thoughts (Past 1 Month) No 10/27/2024 8:00 AM EDT Deloris Shahid RN 6. Suicidal Behavior (Lifetime) No 8:00 AM EDT Renu Shahid RN documented as of this encounter Plan of Treatment Upcoming Encounters Date Type Department Care Team (Late st Contact Info) Description 01/21/2025 9:20 AM EDT Office Visit [facility] [place] Larry [address] [place] [address] Nissa Herzog PA [address] [place] [address] 06/10/2025 9:00 AM EST Office Visit [place] [facility] [address], [address]st [place] [address] Korey Fernandes MD [address] [place] [address] documented as of this encounter Visit Diagnoses Not on filedocumented in this encounter Additional Health Concerns Assessment Noted Time A Body Mass Index follow-up plan has been documented for the patient 10/27/2024 3:35 PM EDT documented as of this encounter Care Teams Search Engine Optimization Strategist Relationship Specialty Start Date End Date Pcp, [place] [address] PCP - General Family Medicine 09/26/24 documented as of this encounter
--- OUTSIDE RECORDS SUMMARY | 2024-11-05 10:10 | XMS_ITS | Encounter Summary ---
Author Organization Healthcare Address [address] [place] [address] Care Team Providers Care Professor Of Marketing Name Role Phone Pcp, No Primary Care Provider Unavailabl e Marzena Sosa LPN Unavailable Unavailabl e Encounter Details Date Type Department Care Team (Late st Contact Info) Description 10/29/2024 Telephone [facility] Inpatient [address] [place] [address] Franklyn Jenkins Jr. RN NEUROSCIENCE SERVICES ADMIN Social History Tobacco Use Types Packs/Day Years [...] any time in the past 12 m [facility], were you homeless or living in a group home (including now)? No 10/28/2024 Utilities Answer Date [...] on file documented as of this encounter Miscellaneous Notes * Nursing Note - Franklyn Jenkins Jr., RN - 10/29/2024 2:19 PM EDT Patient DC date: 10/27/2024 DC f/up: 10/29/2024 (1344) Spoke to pt - stated he was doing weel - feesl a bit tired but good overall. He has been eating/drinking well and ambulating frequently. He was able to get medication prior to leaving and taking as directed had no questions. Pt had spoke to ANGELO nurse (10/28) and had ANGELO appt rescheduled to10/31 - has plans to attend and mentioned no transportation needs. ATT he had no questions - NN provided contact info should he need any further assistance. Jr. SHARMIN Key, RN Neuroscience Nurse Navigator [phone] (office) [facility] documented in this encounter Plan of Treatment Upcoming Encounters Date Type Department Care Team (Late st Contact Info) Description 01/21/2025 9:20 AM EDT Office Visit [facility] [place] Larry [address] [place] [address] Nissa Herzog PA [address] [place] [address] 06/10/2025 9:00 AM EST Office Visit [place] [facility] [address], [address]st [place] [address] Korey Fernandes MD [address] [place] [address] documented as of this encounter Visit Diagnoses Not on filedocumented in this encounter Additional Health Concerns Assessment Noted Time A Body Mass Index follow-up plan has been documented for the patient 10/27/2024 3:35 PM EDT documented as of this encounter Care Teams Professor Of Marketing Relationship Specialty Start Date End Date Pcp, No [address] [place] [address] PCP - General Family Medicine 09/26/24 Marzena Sosa LPN [facility] TCM Nurse 10/28/24 documented as of this encounter
--- OUTSIDE RECORDS SUMMARY | 2024-11-05 10:10 | XMS_ITS | Encounter Summary ---
Author Organization Healthcare Address [address] [place] [address] Care Team Providers Care Senior Electronics Design Engineer Name Role Phone Pcp, No Primary Care Provider Unavailabl e Marzena Sosa LPN Unavailable Unavailabl e Reason for Visit * Reason Comments TCM Call Encounter Details Date Type Department Care Team (Late st Contact Info) Description 10/28/2024 Patient Outreach [facility] [address] [place] [address] Marzena Sosa, [facility] TCM Call Social History Tobacco Use Types Packs/Day Years [...] any time in the past 12 m [facility], were you homeless or living in a senior care (including now)? No 10/28/2024 Utilities Answer Date [...] encounter Miscellaneous Notes * Progress Notes - Marzena Sosa LPN - 10/28/2024 11:15 AM EDT Admit Date: 10/25/2024 Discharge Date: 10/27/2024 Hospital Service: Neurology Discharge Diagnosis: Stroke 10/28/2024 TCM call # 1 Patient Reached: Yes Outcome: Called patient for a TCM nurse call. Patient reports he is doing fairly good. Denies any speech issues, visual changes, MORAN or dizziness. Patient unable to make original ANG[facility]O appointment. Appointment rescheduled to 10/31/2024 at 3:30 pm per patient request. Patient reports he received his medications at discharge and is taking them as instructed. Patient denies any [facility] needs. Number provided for patient to call should he have any questions or concerns arise. Action: Rescheduled ANGELO appointment Medication changes: per AVS Start taking Aspirin 81 mg chew one tablet daily Clopidogrel 75 mg take one tablet daily for 21 days Rosuvastatin 20 mg take one tablet daily ANGELO appointment: 10/31/2024 at 3:30 pm with Vani Dillard Items to address at ANGELO: N/A documented in this encounter Plan of Treatment Upcoming Encounters Date Type Department Care Team (Late st Contact Info) Description 01/21/2025 9:20 AM EDT Office Visit [facility] [place] Larry [address] [place] [address] Nissa Herzog PA [address] [place] [address] 06/10/2025 9:00 AM EST Office Visit [place] [facility] [address], [address] [place] [address] Korey Fernandes MD [address] [place] [address] documented as of this encounter Visit Diagnoses Not on filedocumented in this encounter Additional Health Concerns Assessment Noted Time A Body Mass Index follow-up plan has been documented for the patient 10/27/2024 3:35 PM EDT documented as of this encounter Care Teams Senior Electronics Design Engineer Relationship Specialty Start Date End Date Pcp, No [address] [place] [address] PCP - General Family Medicine 09/26/24 Marzena Sosa LPN [facility] TCM Nurse 10/28/24 documented as of this encounter
--- OUTSIDE RECORDS SUMMARY | 2024-11-05 10:10 | XMS_ITS | Clinical Summary ---
Author Organization Healthcare Address [address] [place] [address] Care Team Providers Care Medical Advisor Name Role Phone Pcp, No Primary Care Provider Unavailabl e Marzena Sosa HOOK UP Unavailable Unavailabl e Allergies No known active allergies Medications armodafinil (Nuvigil) 200 MG tablet Take 1 tablet by mouth daily. Active aspirin 81 MG chewable tablet Chew 1 tablet daily. 90 tablet 5 Active fluticasone-maria dolores meterol (Advair Diskus) 250-50 MCG/ACT diskus inhaler Inhale 1 puff 2 times a day. Rinse mouth with water after use to reduce aftertaste and incidence of candidiasis. Do not swallow. Active fenofibrate (Triglide) 160 MG tablet Take 1 tablet by mouth daily. Active losartan (Cozaar) 25 MG tablet Take 1 tablet by mouth daily. Active levothyroxine (Synthroid, Levoxyl) 50 MCG tablet Take 1 tablet by mouth daily. Active levothyroxine (Synthroid, Levoxyl) 200 MCG tablet Take 1 tablet by mouth daily. Active buPROPion XL (Wellbutrin XL) 300 MG 24 hr tablet Take 1 tablet by mouth daily. Do not crush, chew, or split. Active rosuvastatin (Crestor) 20 MG tablet Take 1 tablet by mouth daily. 30 tablet 5 Active clopidogrel (Plavix) 75 MG tablet Take 1 tablet by mouth daily for 21 days. 21 tablet 5 11/18/19 25 Active tamsulosin (Flomax) 0.4 MG 24 hr capsule TAKE 1 CAPSULE 1 TIME EACH DAY FOR PROSTATE 5 Active Active Problems Problem Noted Date Diagnosed Date Aphasia 10/25/2024 Stroke 10/25/2024 Overview (10/25/2024): R MCA territory stroke Repeat CT scan of head pending LKN 2200 10/24/22 No thrombectomy SBP less than 220 Sodium goal 140-145 Keep HOB elevated NIHSS and neuro examinations per ICU protocol Will continue ongoing stroke education HLD (hyperlipidemia) 10/25/2024 Overview (10/25/2024): Continue statin GERD (gastroesophageal reflux disease) Overview (10/25/2024): Continue PPI JUAN DIEGO (obstructive sleep apnea) 10/25/2024 Overview (10/25/2024): Complicates all aspects of care. CPAP as appropriate Former smoker 10/25/2024 Overview (10/25/2024): Complicates all aspects of care. Obesity 10/25/2024 Overview (10/25/2024): Complicates all aspects of care. Electrolyte abnormality 10/25/2024 Overview (10/25/2024): Replace and trend per ICU protocol Feeding difficulties 10/25/2024 Overview (10/25/2024): Secondary to aphasia NG/OG as necessary for PO access Nutrition consulted for TF recs, appreciate coordination of care Tube feeding per nutritional recommendations via [facility] consult as indicated\ Hypothyroid 10/25/2024 Overview (10/25/2024): TSH 48.20 Unknown home med dose Resume home medications as appropriate T4 pending Encounters Date Type Department Care Team Description 10/31/2024 3:30 PM EDT Office Visit [place] [facility] [address], [address] [place] [address] Sofia Dillard PA TIA (transient ischemic attack) (Primary Dx) 10/31/2024 Travel 10/29/2024 Telephone [facility] [address] [place] [address] Franklyn Jenkins Jr., RN 10/28/2024 Patient Outreach [facility] [address], [address] [place] [address] Marzena Sosa LPN TCM Call 10/27/2024 Lab Requisition [facility] [address] [place] [address] Preet Gay MD Encounter for general adult medical examination without abnormal findings 10/27/2024 Travel 10/26/2024 Travel 10/25/2024 5:36 PM EDT - 10/27/2024 5:21 PM EDT Hospital Encounter [facility] [address] [place] [id number] Scott Rankin MD Rasheed, Izad-Yar D, MD Lee, Jessica D, MD Cerebrovascular accident (CVA), unspecified mechanism (CMS/HCC) (Primary Dx); Aphasia Discharge Disposition: Home or Self Care 10/25/2024 Orders Only External Location [address] [place] [address] Provider, External 10/25/2024 Travel from Last 3 Months Social History Tobacco Use Types Packs/Day Years [...] any time in the past 12 [facility], were you homeless or living in a long-term (including now)? No 10/28/2024 Utilities Answer Date Recorded In the past 12 months has th e electric, gas, oil, or water company threatened to shut off services in your home? No 10/28/2024 Sex and Gender Information Value Date Recorded Sex Assigned at Not on file Legal Sex Male 4:15 PM EDT Gender Identity Not on file Sexual Orientation Not on file Last Filed Vital Signs Vital Sign Reading Time Taken Comments Blood Pressure 140/68 10/31/2024 3:33 PM EDT Pulse 75 10/31/2024 3:33 PM EDT Temperature 36.9 C (98.4 F) 10/27/2024 12:00 PM EDT Respiratory Rate 12 10/27/2024 12:14 PM EDT Oxygen Saturation 97% 10/31/2024 3:33 PM EDT Inhaled Oxygen Concentration - - Weight 120 kg (265 lb 3.4 oz) 10/31/2024 3:33 PM EDT Height 182.9 cm (6') 10/31/2024 3:33 PM EDT Body Mass Index 35.97 10/31/2024 3:33 PM EDT Plan of Treatment Upcoming Encounters Date Type Department Care Team (Late st Contact Info) Description 01/21/2025 9:20 AM EDT Office Visit [facility] [address] [place] [address] Nissa Herzog PA [address] [place] [address] 06/10/2025 9:00 AM EST Office Visit [place] [facility] [address], [address] [place] [address] Korey Fernandes MD [address] [place] [address] Health Maintenance Due Date Last Done Comments [facility]-Medicare Annual Wellness (AWV) 1954 [facility]-Infant/Child/Adol SDOH Screenings 1955 GAL-TBCWD-05 Vaccine (#1) 1959 [facility]-DTaP,Tdap,and Td Vaccine s (1 - Tdap) 1973 CT Colonography 1999 Colonoscopy 1999 FIT-DNA 1999 FIT 1999 FOBT 1999 Sigmoidoscopy 1999 [facility]-Colorectal Cancer Screening 1999 [facility]-Pneumococcal Vaccine: 50 + Years (1 of 1 - PCV) 2004 [facility]-Zoster Vaccines (1 of 2) 2004 [facility]-RSV Vaccine: 60+ Years o r (1 - Risk 60-74 years 1-dose series) 2014 [facility]-Abdominal Aortic Aneurys m (AAA) Screening 2019 [facility]-Influenza Vaccine (Seaso n Ended) 2025 03/12/2023 [facility]- SDOH Screenings 04/29/2025 [facility]-Adult SDOH Screenings 04/29/2025 10/28/2024 [facility]-Depression Screening 10/31/2025 025, 10/31/2024 [facility]-Hepatitis C Screening Completed 10/25/2024 [facility]-Obesity Intervention Completed 025, 10/25/2024 HPV Vaccines Aged Out No longer eligi ble based on patient's age to complete this topic [facility]-HIB Vaccines Aged Out No longer e ligible based on patient's age to complete this topic [facility]-Hepatitis A Vaccines Aged Out No longer eligible based on patient's age to complete this topic [facility]-IPV Vaccines Aged Out No longer e ligible based on patient's age to complete this topic [facility]-Rotavirus Vaccines Aged Out No lo nger eligible based on patient's age to complete this topic Procedures Procedure Name Priority Date/Time Associated Diagnosis Comments MULTI DRUG RESISTANCE TEST Routine 10/27/2024 11:57 AM EDT Encounter for general adult medical examination without abnormal findings ECHO, ADULT TRANSTHORACIC COMPLETE Routine 10/27/2024 11:05 AM EDT SODIUM, PLASMA Timed 10/27/2024 6:53 AM EDT SODIUM, PLASMA Timed 10/27/2024 12:53 AM EDT CBC W/O DIFFERENTIAL Routine 10/27/2024 12:53 AM EDT BASIC METABOLIC PANEL, PLASMA Routine 10/27/2024 12:53 AM EDT MAGNESIUM, PLASMA Routine 10/27/2024 12: 53 AM EDT PHOSPHORUS, PLASMA Routine 10/27/2024 12 :53 AM EDT IONIZED CALCIUM, WHOLE BLOOD Routine 10/27/2024 12:53 AM EDT MR HEAD WO IV CONTRAST STAT 9:40 PM EDT SODIUM, PLASMA Timed 10/26/2024 6:33 PM EDT SODIUM, PLASMA Timed 10/26/2024 12:40 PM EDT OXYGEN THERAPY STAT 10/26/2024 8:00 AM EDT XR ABDOMEN 1 VIEW Routine 10/26/2024 5:[address] HEAD WO IV CONTRAST Timed 4:49 AM EDT CBC W/O DIFFERENTIAL Routine 10/26/2024 3:43 AM EDT BASIC METABOLIC PANEL, PLASMA Routine 10/26/2024 3:43 AM EDT MAGNESIUM, PLASMA Routine 10/26/2024 3:4 3 AM EDT PHOSPHORUS, PLASMA Routine 10/26/2024 3: 43 AM EDT IONIZED CALCIUM, WHOLE BLOOD Routine 10/26/2024 3:43 AM EDT T3 Routine 10/26/2024 3:43 AM EDT DALIA AURIS SURVEILLANCE BY PCR Routine 10/26/2024 3:43 AM EDT MULTI DRUG RESISTANCE TEST Routine 10/26/2024 3:43 AM EDT TROPONIN T, HIGH SENSITIVITY, 2 HOUR, PLASMA Timed 10/25/2024 10:54 PM EDT NE CRITICAL CARE, E/M 30-74 MINUTES Routine 10/25/2024 8:54 PM EDT Cerebrovascular accident (CVA), unspecified mechanism (CMS/HCC) TYPE AND SCREEN Routine 10/25/2024 8:11 PM EDT TROPONIN T, HIGH SENSITIVITY, 0 HOUR, PLASMA, REFLEX TO 2 HOUR STAT 10/25/2024 8:11 PM EDT PROTHROMBIN TIME(PT) / INR STAT 10/25/2024 8:11 PM EDT APTT STAT 10/25/2024 8:11 PM EDT CBC WITH AUTO DIFFERENTIAL STAT 10/25/2024 8:11 PM EDT BASIC METABOLIC PANEL, PLASMA STAT 10/25/2024 8:11 PM EDT FREE T4, PLASMA Routine 10/25/2024 8:11 PM EDT SODIUM, PLASMA Timed 10/25/2024 8:11 PM EDT IONIZED CALCIUM, WHOLE BLOOD Routine 10/25/2024 8:11 PM EDT POCT GLUCOSE METER UNSOLICITED RESULTS Routine 10/25/2024 8:02 PM EDT OXYGEN THERAPY STAT 10/25/2024 8:00 PM EDT SODIUM, PLASMA Timed 10/25/2024 7:03 PM EDT BASIC METABOLIC PANEL, PLASMA Routine 10/25/2024 7:03 PM EDT LIPID PROFILE, PLASMA Routine 10/25/2024 7:03 PM EDT PHOSPHORUS, PLASMA Routine 10/25/2024 7: 03 PM EDT MAGNESIUM, PLASMA Routine 10/25/2024 7:0 3 PM EDT TROPONIN T, HIGH SENSITIVITY, 2 HOUR, PLASMA Timed 10/25/2024 7:03 PM EDT TSH Routine 10/25/2024 6:40 PM EDT ECG ADULT STAT 10/25/2024 6:34 PM EDT HEMOGLOBIN A1C Add-On 10/25/2024 6:02 PM EDT ED HIV 1/2 ANTIBODY/ANTIGEN SCREEN WITH REFLEX TO HIV I/II DIFFERENTIATION STAT 10/25/2024 6:02 PM EDT ED PROTOCOL HIV 1/2 ANTIBODY/ANTIGEN SCREEN W/REFLEX TO HIV 1/2 ANTIBODY DIFFERENTIATION STAT 10/25/2024 6:02 PM EDT HEPATITIS C ANTIBODY - ED W/REFLEX TO HCV QUANT PCR STAT 10/25/2024 6:02 PM EDT TROPONIN T, HIGH SENSITIVITY, 0 HOUR, PLASMA, REFLEX TO 2 HOUR STAT 10/25/2024 6:02 PM EDT COMPREHENSIVE METABOLIC PANEL, PLASMA STAT 10/25/2024 6:02 PM EDT APTT STAT 10/25/2024 6:02 PM EDT ANTI XA LEVEL UNFRACTIONATED HEPARIN STAT 10/25/2024 6:02 PM EDT PROTHROMBIN TIME(PT) / INR STAT 10/25/2024 6:02 PM EDT CBC WITH AUTO DIFFERENTIAL STAT 10/25/2024 6:[address] ANGIO NECK STAT 10/25/2024 5:[address] ANGIO HEAD STAT 10/25/2024 5:[address] HEAD WO IV CONTRAST STAT 5:57 PM EDT POCT GLUCOSE METER UNSOLICITED RESULTS Routine 10/25/2024 5:42 PM EDT OXYGEN THERAPY STAT 10/25/2024 5:40 PM EDT OXYGEN THERAPY STAT 10/25/2024 5:40 PM EDT OXYGEN THERAPY STAT 10/25/2024 5:[address] THORACIC OUTSIDE IMAGES 10/25/2024 3:04 PM EDT from Last 3 Months Results * Multi Drug Resistance Test (10/27/2024 11:57 AM EDT) Only the most recent of2 resultswithin the time period is included. Culture No growth at day 1 10/28/2024 1:54 PM EDT [facility][1] Swab (Nares and Catie Rectal) 10/27/2024 11:57 AM EDT 10/27/2024 12:58 PM EDT Narrative [facility] - 10/28/2024 1:54 PM EDT This test was developed and its performance characteristics determined by the [facility]. Although the media is FDA-approved, it is not FDA-approved for all specimen types submitted. The FDA has determined that such clearance or approval is not necessary. This test is used for surveillance purposes. It should not be regarded as investigational or for research. The [facility] is certified under the Clinical Laboratory Improvement Amendments of 1988 (CLIA-88) as qualified to perform high complexity clinical laboratory testing. us Preet Gay MD LAB MICROBIOLOGY - GEN ERAL ORDERABLES Final Result [facility][1] [address] [place] [address] * ECHO, ADULT TRANSTHORACIC COMPLETE (10/27/2024 11:05 AM EDT) BSA 2.41 m2 ANGEI ISCV Height 183.0 ANGIE ISCV Weight 121.0 [...] Root Diam 35 mm ANGIE ISCV PA NE(ACCEL) 16.4 mmHg ANGIE ISCV LVLs ap2 6.4 [...] is no recent study available for direct [id number]-fw-[id number] comparison. Left Ventricle The left ventricle is [...] is no recent study available for direct [id number]-[id number] comparison. Everett Zhang APRN CV ECHO PROCEDURES Final Result * Sodium, Plasma (10/27/2024 6:53 AM EDT) Only the most recent of6 resultswithin the time period is included. Sodium, Plasma 138 136 - 145 mmol/L 10/27/2024 7:20 AM EDT [facility] Blood Venous blood specimen / Unknown Venipuncture / Unknown 10/27/2024 6:53 AM EDT 10/27/2024 6:56 AM EDT Everett Zhang APRN LAB BLOOD ORDERABLES Elena l Result [facility] [address] [place] [address] * (ABNORMAL) Ionized calcium, whole blood (10/27/2024 12:53 AM EDT) Only the most recent of3 resultswithin the time period is included. Ionized Calcium, Whole Blood 4.0(L) 4.6 - 5.1 mg/dL LAB HEMATOLOGY METHOD 10/27/2024 12:58 AM EDT [facility] Blood Venous blood specimen / Unknown Venipuncture / Unknown 10/27/2024 12:53 AM EDT 10/27/2024 12:57 AM EDT Everett Zhang [employer] LAB BLOOD ORDERABLES Elena l Result Performing Organization Address [facility] Co de Phone Number [facility] [address] [place] [address] * CBC W/O Differential (10/27/2024 12:53 AM EDT) Only the most recent of2 resultswithin the time period is included. WBC Count 8.68 3.70 - 10.30 10*3/uL [...] ORDERABLES Elena l Result Performing Organization Address City/[facility]/ZIP Co de Phone Number [facility] [address] [place] [address] * Phosphorus, Plasma (10/27/2024 12:53 AM EDT) Only the most recent of3 resultswithin the time period is included. Phosphorus, Plasma 3.4 2.5 - 4.5 mg/dL 10/27/2024 1:27 AM EDT [facility] Blood Venous blood specimen / Unknown Venipuncture / Unknown 10/27/2024 12:53 AM EDT 10/27/2024 12:57 AM EDT Everett Zhang APRN LAB BLOOD ORDERABLES Elena l Result [facility] [address] [place] [address] * Magnesium, Plasma (10/27/2024 12:53 AM EDT) Only the most recent of3 resultswithin the time period is included. Magnesium, Plasma 2.3 1.9 - 2.4 mg/dL 10/27/2024 1:27 AM EDT [facility] Blood Venous blood specimen / Unknown Venipuncture / Unknown 10/27/2024 12:53 AM EDT 10/27/2024 12:57 AM EDT Everett Zhang [employer] LAB BLOOD ORDERABLES Elena harrison Result [facility] [address] [place] [address] * (ABNORMAL) Basic Metabolic Panel, Plasma (10/27/2024 12:53 AM EDT) Only the most recent of4 resultswithin the time period is included. Pathologist [facility] Glucose, Plasma 91 74 - 99 mg/dL [...] Everett Zhang APRN LAB BLOOD ORDERABLES Elena harrison Result [facility] [address] [place] [address] * MR Head wo IV Contrast (10/26/2024 [...] MD IMG MRI PROCEDURES Final Result * XR Abdomen 1 View (10/26/2024 5:05 [...] Millie Lenz MD on 10/26/2024 7:53 AM Everett Zhang [employer] IMG XR PROCEDURES Final R esult * CT Head wo IV Contrast (10/26/2024 4:49 AM EDT) Only the most recent of2 resultswithin the time period is included. Anatomical Region Laterality Modality Head Computed Tomogra [...] Malcolm Rogers MD on 10/26/2024 8:12 AM Charly Marie MD IM CT PROCEDURES Final Result * Dalia auris Surveillance by PCR (10/26/2024 3:43 AM EDT) Dalia auris PCR Result Not Detected Not Detected 10/26/2024 10:36 AM EDT [facility] Swab (Axilla and Groin) Non-blood Collection / Unknown 10/26/2024 3:43 AM EDT 10/26/2024 4:17 AM EDT Narrative [facility] - 10/26/2024 10:36 AM EDT This PCR assay was developed and its performance characteristics determined by [facility] as appropriate for clinical purposes. This assay has not been cleared or approved by the FDA, but is performed in a CLIA regulated laboratory that is qualified to perform high-complexity testing. Demetrius Brown MD LAB MICROBIOLOGY - GENERAL ORDERABLES Final Result Performing Organization Address City/[facility]/ZIP Co de Phone Number [facility][1] [address] [place] [address] * (ABNORMAL) T3 (10/26/2024 3:43 AM EDT) T3, Serum 67(L) 87 - 187 ng/dL 10/26/2024 4:46 AM EDT [facility] Blood Venous blood specimen / Unknown Venipuncture / Unknown 10/26/2024 3:43 AM EDT 10/26/2024 3:48 AM EDT Charly Marie MD LAB BLOOD ORDERABLES Final Resul t Performing Organization Address [facility] [place] [address] * Troponin T, High Sensitivity, 2 Hour, Plasma (10/25/2024 10:54 PM EDT) Only the most recent of2 resultswithin the time period is included. [facility] Troponin T, High Sensitivity, 2 Hour 13 <19 ng/L 10/25/2024 11:29 PM EDT [facility] Blood Venous blood specimen / Unknown Venipuncture / Unknown 10/25/2024 10:54 PM EDT 10/25/2024 11:00 PM EDT Demetrius Brown MD LAB BLOOD ORDERABLES Final Result Performing Organization Address City/[facility]/ZIP Co de Phone Number [facility][1] [address] [place] [address] * NE CRITICAL CARE, E/M 30-74 MINUTES (10/25/2024 8:54 [...] IN CLINIC/BEDSIDE ORDERAB LES Final Result * Troponin T, High Sensitivity, 0 Hour Plasma, Reflex to 2 Hour (10/25/2024 8:11 PM EDT) Only the most recent of2 resultswithin the time period is included. Troponin T, High Sensitivity, 0 Hour 16 <19 ng/L 10/25/2024 9:03 PM EDT [facility] Blood Venous blood specimen / Unknown Venipuncture / Unknown 10/25/2024 8:11 PM EDT 10/25/2024 8:20 PM EDT Demetrius Brown MD LAB BLOOD ORDERABLES Final Result Performing Organization Address [facility] de Phone Number [facility] [address] [place] [address] * APTT (10/25/2024 8:11 PM EDT) Only the most recent of2 resultswithin the time period is included. aPTT 26 25 - 35 sec LAB COAGULATION METHOD 10/25/2024 8:56 PM EDT [facility] Blood Venous blood specimen / Unknown Venipuncture / Unknown 10/25/2024 8:11 PM EDT 10/25/2024 8:20 PM EDT Demetrius Brown MD LAB BLOOD ORDERABLES Final Result Performing Organization Address City/[facility] Co de Phone Number [facility] [address] [place] [address] * Protime-INR (10/25/2024 8:11 PM EDT) Only the most recent of2 resultswithin the time period is included. Prothrombin Time 14.0 12.0 - 14.3 sec [...] INR 2.5 to 3.5 Prevention of recurrent MT INR 2.5 to 3.5 us Demetrius Brown MD LAB BLOOD ORDERABLES Final Result [facility] [address] [place] [address] * (ABNORMAL) CBC and differential (10/25/2024 8:11 PM EDT) Only the most recent of2 resultswithin the time period is included. WBC Count 12.09(H) 3.70 - 10.30 10*3/uL [...] [facility] - 10/25/2024 8:32 PM EDT Therapeutic decision making should be based on absolute values, rather than percentages. Demetrius Brown MD LAB BLOOD ORDERABLES Final Result Performing Organization Address City/[facility]/ZIP Co de Phone Number [facility] [address] [place] [address] * Type and Screen (10/25/2024 8:11 PM EDT) ABO/Rh O Positive 10/25/2024 8:09 PM EDT BLOOD BANK Antibody Screen Negative 10/25/2024 8:09 PM EDT BLOOD BANK Specimen Expiration 10/28/2024 23:59 10/25/2024 8:09 PM EDT BLOOD BANK Blood Venous blood specimen / Unknown Venipuncture / Unknown 10/25/2024 8:11 PM EDT 10/25/2024 8:27 PM EDT Demetrius Brown MD LAB BLOOD BANK TEST ORDERA BLES Final Result Performing Organization Address City/[facility]/ZIP Co de Phone Number BLOOD BANK [address] [place] [address], * T4, free (10/25/2024 8:11 PM EDT) Free T4, Plasma 1.0 0.8 - 1.7 ng/dL 10/25/2024 9:02 PM EDT [facility] Blood Venous blood specimen / Unknown Venipuncture / Unknown 10/25/2024 8:11 PM EDT 10/25/2024 8:20 PM EDT us Sundar Ortiz MD LAB BLOOD ORDERABLES Final Re sult Performing Organization Address City/[facility]/ZIP Co de Phone Number [facility] [address] [place] [address] * (ABNORMAL) POCT glucose meter (10/25/2024 8:02 PM EDT) Only the most recent of2 resultswithin the time period is included. [facility] POCT Glucose 138(H) 74 - 99 mg/dL [...] Comment 10/25/2024 8:04 PM EDT HEALTHCARE LAB Water Plant Maintenance Mechanic ID [place], Aaliyah 10/25/2024 8:04 PM EDT HEALTHCARE LAB Device ID [id number] 10/25/2024 8:04 PM EDT HEALTHCARE LAB Specimen Type POC Capillary 10/25/2024 8:04 PM EDT HEALTHCARE LAB Blood Capillary blood specimen / Unknown 10/25/2024 8:02 PM EDT 10/25/2024 8:04 PM EDT us Demetrius Brown MD LAB POINT OF CARE TEST DOCKED DEVICE UNSOLICITED RESULTS Final Result Performing Organization Address City/[facility]/ZIP Co de Phone Number HEALTHCARE LAB [address] [place] [address] * (ABNORMAL) Lipid panel (10/25/2024 7:03 PM EDT) [facility] Cholesterol, Plasma 178 <200 mg/dL 10/25/2024 7:51 [...] PM EDT 10/25/2024 7:07 PM EDT us Demetrius Brown MD LAB BLOOD ORDERABLES Final Result [facility] [address] [place] [address] * (ABNORMAL) TSH (10/25/2024 6:40 PM EDT) Thyroid Stimulating Hormone, Plasma 48.20(H) 0.40 - 4.20 uIU/mL 10/25/2024 7:26 PM EDT [facility] Blood Venous blood specimen / Unknown Venipuncture / Unknown 10/25/2024 6:40 PM EDT 10/25/2024 6:42 PM EDT Demetrius Brown MD LAB BLOOD ORDERABLES Final Result Performing Organization Address [facility] Co de Phone Number [facility] [address] [place] [address] * ECG Adult (10/25/2024 6:34 PM EDT) EKG DIAGNOSIS CLASS Abnormal MUSE ECG Ventricular Rate 64 BPM MUSE ECG Atrial Rate 64 BPM MUSE ECG NE Interval 300 ms MUSE ECG QRSD Interval 94 ms MUSE ECG QT Interval 438 ms MUSE ECG QTC Interval 451 ms MUSE ECG P [place] 49 degrees MUSE ECG R [place] 202 degrees MUSE ECG T Wave [place] 9 degrees MUSE ECG Diagnosis Sinus rhythm with 1st degree AV block MUSE ECG Diagnosis Abnormal ECG MUSE ECG Diagnosis MUSE ECG Diagnosis Confirmed by Yves Harris ([id number]) on 10/26/2024 11:25:24 AM MUSE ECG 10/25/2024 6:34 PM EDT 10/26/2024 11:25 AM EDT Scott aRnkin MD ECG ORDERABLES Final R esult Performing Organization Address [facility] Co de Phone Number MUSE ECG * ED HIV 1/2 Antibody/Antigen Screen w/Reflex to HIV 1/2 Differentiation (10/25/2024 6:02 PM EDT) Pathologist [facility] HIV 1 & 2 Antibody/Antigen Screen Non Reactive Non Reactive 10/25/2024 6:54 PM EDT [facility] Comment:Screening for HIV 1 & 2 antibodies, and P24 antigen is NONREACTIVE. No confirmatory testing is required. Blood Venous blood specimen / Unknown Venipuncture / Unknown 10/25/2024 6:02 PM EDT 10/25/2024 6:14 PM EDT Scott Rankin MD LAB BLOOD ORDERABLES Fi nal Result Performing Organization Address City/State/[facility] Co de Phone Number [facility] [address] [place] [address] * Hepatitis C Antibody - ED (10/25/2024 6:02 PM EDT) Hepatitis C Antibody Negative Negative 10/25/2024 7:44 PM EDT [facility][1] Blood Venous blood specimen / Unknown Venipuncture / Unknown 10/25/2024 6:02 PM EDT 10/25/2024 6:14 PM EDT us Scott Rankin MD LAB BLOOD ORDERABLES Fi nal Result Performing Organization Address [facility] Co de Phone Number [facility][1] [address] [place] [address] * Anti Xa Level Unfractionated Heparin (10/25/2024 6:02 PM EDT) Pathologist [facility] Anti Xa Level Unfractionated Heparin <0.11 <1.00 IU/mL 10/25/2024 6:26 PM EDT [facility][1] Blood Venous blood specimen / Unknown Venipuncture / Unknown 10/25/2024 6:02 PM EDT 10/25/2024 6:10 PM EDT Narrative [facility] - 10/25/2024 6:26 PM EDT Therapeutic Range: UFH Full Dose and ACS/MT protocols*: 0.30 - 0.70 IU/mL UFH Low Dose protocol*: 0.25 - 0.50 IU/mL UFH prophylaxis: Not established us Scott Rankin MD LAB BLOOD ORDERABLES Fi nal Result Performing Organization Address City/[facility]/ZIP Co de Phone Number [facility] [address] [place] [address] * Hemoglobin A1c (10/25/2024 6:02 PM EDT) [facility] [facility] Hemoglobin A1c 5.6 <5.7 % 10/26/2024 11:41 [...] Adults <6.0% Children and Adolescents <7.5% Source: [place] [employer]. Standards of medical care in diabetes,2017. Diabetes Care.2017:40 (suppl 1):S1-S135. us Demetrius Brown MD LAB BLOOD ORDERABLES Final Result [facility] [address] [place] [address] * (ABNORMAL) Comprehensive Metabolic Panel (10/25/2024 6:02 [...] [facility] [address] [place] [address] * CT Angio Neck (10/25/2024 5:57 PM [...] branch. Occlusion of the left P2 segment CLOTH PRESSER (series 3 image 1 5). CRITICAL RESULT: [...] Total DLP (Dose-Length Product): 2056.29 mGy.cm (accession [id number]), 2056.29 mGy.cm (accession [id number]), 2056.29 mGy.cm (accession [id number]). Please note: The reported value represents the [...] air cells are clear. CTA Head: Bilateral proposal editor. Significant critical stenosis of the right M1 [...] Total DLP (Dose-Length Product): 2056.29 mGy.cm (accession [id number]),2056.29 mGy.cm (accession [id number]), 2056.29 mGy.cm (accession [id number]).Please note: The reported value represents the total [...] air cells are clear. CTA Head: Bilateral proposal editor. Significant critical stenosis of the right H3wdvxhox. There is reduced caliber of the right [...] branch. Occlusion of the left P2 segment CLOTH PRESSER (series 3 image 1 5). CRITICAL RESULT: No. COMMUNICATION: Per this written report. Drafted by Beulah Hu MD on 10/25/2024 6:08 PM Final report signed by Beulah Hu MD on 10/25/2024 6:34 PM us Scott Rankin MD IMG CT PROCEDURES Final Result * CT Angio Head (10/25/2024 5:57 PM EDT) Anatomical Region Laterality Modality [place] Computed Tomogr aphy Impressions 10/25/2024 6:34 PM EDT Evolving ischemic infarct of the right MCA territory. Subcentimeter hypodensity in the left basal ganglia suggestive of a age- indeterminate lacunar infarct. Significant critical stenosis of the right M1 segment.There is reduced caliber of the right M2 segment superior branch. Occlusion of the left P2 segment CLOTH PRESSER (series 3 image 1 5). CRITICAL RESULT: [...] Total DLP (Dose-Length Product): 6.29 mGy.cm (accession [id number]), 6.29 mGy.cm (accession [id number]), 6.29 mGy.cm (accession [id number]). Please note: The reported value represents the [...] air cells are clear. CTA Head: Bilateral proposal editor. Significant critical stenosis of the right M1 [...] Total DLP (Dose-Length Product): 6.29 mGy.cm (accession [id number]),6.29 mGy.cm (accession [id number]), 6.29 mGy.cm (accession [id number]).Please note: The reported value represents the total [...] air cells are clear. CTA Head: Bilateral proposal editor. Significant critical stenosis of the right L4qmoqpuo. There is reduced caliber of the right [...] branch. Occlusion of the left P2 segment CLOTH PRESSER (series 3 image 1 5). CRITICAL RESULT: No. COMMUNICATION: Per this written report. Drafted by Beulah Hu MD on 10/25/2024 6:08 PM Final report signed by Beulah Hu MD on 10/25/2024 6:34 PM Scott Rankin MD IMG CT PROCEDURES Final Result * CT THORACIC OUTSIDE IMAGES (10/25/2024 3:04 PM EDT) Anatomical Region Laterality Modality Computed Tomogra phy 10/25/2024 3:04 PM EDT us External Provider IMG CT PROCEDURES Final Result from Last 3 Months Insurance [facility] MEDICARE Care Teams Medical Advisor Relationship Specialty Start Date End Date Pcp, [place] [address] PCP - General Family Medicine 09/26/24 Marzena Sosa LPN [facility] TCM Nurse 10/28/24
[2024-11-06 08:12] LABS: Hepatitis B Surface Antigen Negative (Negative)
== END 2024-11-04 23:59 | disposition home or self-care (01) ==
LOC: LAB.DROPOF 11-05 10:03
PROVIDERS: PCP Family Medicine; Visit Provider Family Medicine
DX: E03.9 Hypothyroidism, unspecified (principal)
CPT/HCPCS: 84443; 87340

== ENCOUNTER 2024-11-05 14:42 | Outpatient (CLI) | payer MEDICARE, SELFPAY ==
--- OUTSIDE RECORDS SUMMARY | 2024-10-25 17:36 | XMS_ITS | Encounter Summary ---
Author Organization Healthcare Address [address] [place] [address] Care Team Providers Care Kraft Digester Operator Name Role Phone Pcp, No Primary Care Provider Unavailabl e Reason for Referral * Consultation (Routine) - Authorized Specialty Diagnoses / Procedures Referred By Lito sibley Referred To Contact Cardiology Diagnoses Liliane Lazo MD [address] [place] [phone] Phone: tel: fax: Referral ID Status Reason Start Date Expiration Date Visits Requested Visits Authorized [id number] Authorized Specialty Services Required 10/27/2024 04/28/2026 1 1 Scheduling Instructions Patch monitor * Consultation (Routine) - Authorized Specialty Diagnoses / Procedures Referred By Lito sibley Referred To Contact Neurology Diagnoses Liliane Lazo MD [address] [place] [phone] Phone: tel: fax: Referral ID Status Reason Start Date Expiration Date Visits Requested Visits Authorized [id number] Authorized Specialty Services Required 10/27/2024 04/28/2026 1 1 Scheduling Instructions Follow up with stroke clinic in 8-14 weeks * Consultation (Routine) - Closed Specialty Diagnoses / Procedures Referred By Lito sibley Referred To Contact Neurology Diagnoses Liliane Lazo MD [address] [place] [phone] Phone: tel: fax: Referral ID Status Reason Start Date Expiration Date V isits Requested Visits Authorized [id number] Closed Specialty Services Required 10/27/2024 04/28/2026 1 1 Scheduling Instructions Follow up in Transitions of Care clinic in 3-14 days Reason for Visit * Reason Comments Stroke Alert * Auth/Cert (Routine) Specialty Diagnoses / Procedures Referred By Contac t Referred To Contact Diagnoses Aphasia Cerebrovascular accident (CVA), unspecified mechanism (CMS/HCC) Stroke, possible thrombectomy Deidre Brown MD [address] [phone] Phone: tel: fax: [facility] Inpatient [address] [place] [address] Phone: tel: Referral ID Status Reason Start Date Expiration Date Visits Re quested Visits Authorized [id number] 1 1 Encounter Details Date Type Department Care Team (Late st Contact Info) Description 10/25/2024 5:36 PM EDT - 10/27/2024 5:21 PM EDT Hospital Encounter [facility] Inpatient [address] [place] [address] Scott Rankin MD [address] [place] [address] Deidre Brown MD [address] [phone] Liliane Higgins MD [address] [address] Cerebrovascular accident (CVA), unspecified mechanism [...] any time in the past 12 m [facility], were you homeless or living in a usp (including now)? No 10/28/2024 Utilities Answer Date Recorded In the past 12 months has th e [employer], gas, oil, or water [employer] threatened to shut off services in your [...] Note Edwin Cook 69 y.o. male CSN: [id number] Admission: 10/25/2024 5:36 PM Primary Problem: Stroke (CMS/HCC) Primary Olive Pitter: Assistance Available at Discharge: Housing Circumstances-Z Codes: Patient Referred to Financial or Community Resources: Discharge Facility/Level of Care Needs: Patient's Choice of Community Agency(s): Patient/Family Anticipated Services at Transition: DME/Equipment Needed after Discharge: Readmission Within the Last 30 Days: Medicare Documentation: Pt dc prior to being able to make contact with pt. Follow-up: Romel Romo MD [address] [facility] [phone] Pcp, Nae [address] [facility] [address] Discharge Transportation: Follow Up Transport: Additional Comments: [...] from the original note were not included. [id number] What Is Ischemic Stroke? The brain needs [...] hospital! Last Reviewed Date: 2016 00:00:00 ?? 5139-6539 [employer]. All rights reserved. This information is not intended as a substitute for professional medical care. Always follow your healthcare professional's instructions. This information has been modified by your health care provider with permission from the publisher. * Viri More - Linh Meek RN - 10/27/2024 3:34 PM EDT Images from the original note were not included. [address] Stroke: Taking Medicines Your healthcare provider has [...] time. Last Reviewed Date: 2023 00:00:00 ?? 5294-9932 [employer]. All rights reserved. This information is not intended as a substitute for professional medical care. Always follow your healthcare professional's instructions. * Brad Powell MBBS - 10/27/2024 2:59 PM EDT Images from the original note were not included. [address]30 What Is a TIA? A TIA (transient [...] appeared. Last Reviewed Date: 2023 00:00:00 ?? [id number] [employer]. All rights reserved. This information is not intended as a substitute for professional medical care. Always follow your healthcare professional's instructions. * Viri OnFHIR - Brad Roman MBBS - 10/27/2024 2:59 PM EDT Images from the original note were not included. [id number] Transient Ischemic Attack (TIA) Your symptoms were [...] away. Last Reviewed Date: 2024 00:00:00 ?? 3926-6068 [employer]. All rights reserved. This information is not intended as a substitute for professional medical care. Always follow your healthcare professional's instructions. * Viri AllisonLUISITO - Brad Roman MBBS - 10/27/2024 2:59 PM EDT Images from the original note were not included. [address] Discharge Instructions for Transient Ischemic Attack (TIA) [...] appeared. Last Reviewed Date: 2024 00:00:00 ?? [id number] [employer]. All rights reserved. This information is not [...] PCP name and Address: Pcp, Nae [address] [address] Referring provider name and address: Romel Romo MD [address] [place] [address] Chief Concern, Brief History of Present Illness, and Hospital Course Edwin Cook is a 69 y.o. male with PMH of hyperlipidemia, GERD, [place], new diagnosis of esophagealmass, hypothyroidism, tobacco use disorder, obesity presenting with speech difficulty. LKN was 45252/6. He was found to have R MCA [...] Your Medications These medications were sent to [facility] - [place], [place] - [address] [facility] [address] aspirin 81 MG chewable tablet clopidogrel 75 [...] Tube feeding per nutritional recommendations via [facility] HE[facility] CONSULTANT consult as indicated\ Hypothyroid Overview Signed 10/25/2024 [...] Center 11/05/2024 1:30 [address] PA [facility] 06/10/2025 9:00 AM Korey Fernandes MD [facility] Test Results Pending At Discharge None Pertinent [...] PCP - General (Family Medicine) Staff Present: Canopy Stringer, Veterans Service Representative, Pharmacy, Speech Therapy, Physical/Occupational Therapy, Neurology Resident, Neuroscience Nurse Navigator, Willow Analyst, and Stroke Mattress Maker Level of Care: Progressive Status: stable ECHO [...] male admitted 10/25/2024 for work-up of Stroke ([facility]). NIH Stroke Scale: 4 Hospital Course 1. Cerebrovascular accident (CVA), unspecified mechanism ([facility]) Procedures (if applicable) Past Medical History Patient [...] admission Level of Mobility Ambulatory- community Mobility [place] Independent gait without device History of Falls [...] Treatment Minutes (if applicable) 14 Level of [place] Interventions Feeding Pt presenting with baseline L [...] Setup, Close supervision BED MOBILITY Level of [place] Physical/Non- physical Assist Scooting/ Bridging Stand-by assist Set-up required, Verbal Cues Supine to Sit Stand-by assist Set-up required, Verbal Cues TRANSFERS Level of [place] Physical/Non- physical Assist Adaptive Equipment Utilized Sit to Stand Stand-by assist Set-up required, Verbal Cues, Nonverbal cues (demo/gestures), Additional assist utilized for safety Hand held assist Stand to sit Stand-by assist Set-up required, Verbal Cues, Nonverbal cues (demo/gestures) Hand heldassist BALANCE Postural Appearance Posture: Within Functional Limits Level of [place] Balance Support Interventions Static Sit Independent Dynamic Sit Independent Dynamic Sitting-Balance: Lateral weight shifts, Anterior/Posterior weight shifts, Reaching for objects Static Stand Standby assist Dynamic Stand Standby assist STANDARDIZED ASSESSMENTS [facility] 6-Click Daily Activities Help from Other: Don/Doff Regular Lower Body Clothings: Little Help From Other: Bathing: Little Help From Other: Toileting: None Help From Other: Don/Doff Upper Body Clothings: None Help From Other: Grooming: None Help From Other: Eating Meals: None [facility] 6 Click - Daily Activities Score: 22 Pre-Stroke MRS Pre-Stroke Modified [place] Scale : The patient had no residual [...] impairments. Participants in Care Family/Caregiver Present: No Front End Web Developer: Not Applicable PRESENTATION Oxygen None (Room air) [...] admission Level of Mobility Ambulatory- community Mobility [place] Independent gait without device History of Falls [...] elevated. Verbal cue to initiate. Level of [place] Physical/Non- physical Assist Adaptive Equipment Utilized Rolling/ Turning Scooting/ Bridging Stand-by assist Set-up required, Verbal Cues Supine to Sit Stand-by assist Set-up required, Verbal Cues Sit to Supine TRANSFERS Interventions Verbal cue for safety. Level of [place] Physical/Non- physical Assist Adaptive Equipment Utilized Sit to Stand Stand-by assist Set-up required, Verbal Cues, Nonverbal cues (demo/gestures), Additional assist utilized for safety Hand held assist Stand to sit Stand-by assist Set-up required, Verbal Cues, Nonverbal cues (demo/gestures) Hand heldassist Bed to Chair Toilet Transfer Shower Transfer AMBULATION Level of [place] Distance Adaptive Equipment Utilized Ambulation Standby assist 330' including ascend/descend 4 with recripocal gait and unilateral rail with CGA x1 to turn No device Comments Pt navigated open hallway environment including obstacles and turns without LOB noted. Pt with swing through gait pattern. BALANCE Postural Appearance Posture: Within Functional Limits Level of [place] Balance Support Interventions Static Sit Independent Dynamic Sit Independent Dynamic Sitting-Balance: Lateral weight shifts, Anterior/Posterior weight shifts, Reaching for objects Static Stand Standby assist Dynamic Stand Standby assist Standardized Assessments [facility] 6-Clicks Mobility Assessment Difficulty patient has turning [...] climbing 3-5 steps with a railing?: None [facility] 6-Clicks Mobility Assessment Total : 24 Pre-Stroke MRS Pre-Stroke Modified [place] Scale : The patient had no residual [...] obesity presenting with speech difficulty. LKN was 29620/6. She was found to have R MCA [...] Units Date/Time Ivory auris Surveillance by PCR [[id number]] (Normal) Collected: 10/26/24342 Order Status: Completed Specimen: [...] perform high-complexity testing. Multi Drug Resistance Test [[id number]] Collected: 10/26/24 0343 Order Status: Sent Specimen: [...] branch. Occlusion of the left P2 segment HEAD KNITTING MACHINE FIXER (series 3 image 1 5). CRITICAL RESULT: [...] branch. Occlusion of the left P2 segment HEAD KNITTING MACHINE FIXER (series 3 image 1 5). CRITICAL RESULT: [...] branch. Occlusion of the left P2 segment HEAD KNITTING MACHINE FIXER (series 3 image 1 5). CRITICAL RESULT: [...] obesity presenting with speech difficulty. LKN was 75498/. She was found to have R MCA [...] Normal Stroke Workup, pending: Consults: PT, OT, [facility] HEALTH CONSULTANT Labs/Studies (if not done in the ER): [...] diet DVT Ppx: pLOV PT/OT Recs: pending [facility] HE[facility] CONSULTANT Recs: pending Dispo: Downgrade to Stroke PCU [...] PCU * Progress Notes - Khoi Holder, SARITHA-RURAL HEALTH CONSULTANT - 10/26/2024 10:28 AM EDT Speech Language Pathology Speech / Language / Communication and Clinical Swallow Initial Evaluation Patient Name: Edwin Cook Age: 69 y.o. Today's Date: 10/26/2024 Recommendations: Continue IDDSI 7 Easy to chew diet with IDDSI 0 thin liquids. Meds as able. R[facility] HEALTH CONSULTANT will follow-up at bedside for diet tolerance [...] recalled 1/3 unrelated words given 2-minute delay detention [x] [] [] Problem Solving [] [] [...] IDDSI 0 thin liquids. Meds as able. R[facility] HEALTH CONSULTANT will follow-up at bedside for diet tolerance. Communication: Patient presents with mild cognitive deficits in the area of short-term memory. R[facility] HEALTH CONSULTANT will follow. Prognosis: Good for improved function with skilled speech pathology services focusing on stated goals. Patient Education: Education provided to patient regarding: recommendations. Results and recommendations of this evaluation were communicated to: RN/Team Plan / Recommendations Continue IDDSI 7 Easy to chew diet with IDDSI 0 thin liquids. Meds as able. R[facility] HEALTH CONSULTANT will follow-up at bedside for diet tolerance [...] No further ICU needs at this time, [facility] willsign off. Thank you for allowing us to participate in the care of this patient. Please feel free toconsult us for any further needs. Shital Bishop APRN [phone] * H&P - Everett Zhang APRN - [...] to the ICU for close neurological monitoring. [facility] consulted to assist in ICU level of [...] Reviewed and otherwise non-contributory. Allergies: Allergies[4] GCS: [place] Coma Scale Score: 14 NIH Stroke Scale: [...] Tube feeding per nutritional recommendations via DHT [facility] HE[facility] CONSULTANT consult as indicated\ Everett Zhang APRN [1] [...] from patient, family member (), emergency medical radiation therapist, and medical records. Patient reportedly went to [...] was discussed with ADITYA Attending Dr: Tyree, banking consultant. NIH Stroke Scale Interval: On arrival Date: [...] Normal Stroke Workup, pending: Consults: PT, OT, [facility] HE[facility] CONSULTANT Labs/Studies (if not done in the ER): [...] holding, start on 10/26 PT/OT Recs: pending [facility] HE[facility] CONSULTANT Recs: pending RACHAEL Dodd, Resident, Neurology Secure Chat/Pager: [phone] 10/25/2024 7:00 PM Dictation software disclaimer: Parts [...] and output Every 8 hours Acknowledged [facility] [place] 10/25/241832 Troponin T, High Sensitivity, 2 Hour, Plasma PROCEDURE ONCE Comments: Stroke Alert Collected FRANSICO OATES 10/25/241836 Vital Signs Every 4 hours Acknowledged ABEL GOLDBERG [place] 10/25/241836 Check pulse oximetry Every 4 hours Acknowledged ABEL GOLDBERG [place] 10/25/241836 Daily weights Daily Comments: Weight patient on arrival and daily. Acknowledged NATALIIA GOLDBERG 10/25/241836 Admit to inpatient Once Acknowledged [facility] [place] 10/25/241836 Adult diet Diet texture: Regular Diet effective now Acknowledged [facility] [place] 10/25/241836 Okay To Give Nicotine Replacement Until discontinued Acknowledged [facility] [place] 10/25/241836 Unable to Assess Until discontinued Completed ABEL GOLDBERG [place] 10/25/241836 Mobility Orders Until discontinued Acknowledged [facility] [place] 10/25/241836 Sequential compression device Until discontinued Comments: SCDs must be in place and turned on EXCEPT when ACTIVELY ambulating. Acknowledged ABEL GOLDBERG [place] 10/25/241836 Notify physician (specify parameters) Until discontinued Acknowledged [facility] [place] 10/25/241836 Neuro checks Until discontinued Comments: [...] Stroke or Cerebrovascular Disease Until discontinued Acknowledged NATALIIA GOLDBERG 10/25/24 1837 Insert peripheral IV Once [...] Stroke Rehab Acknowledged NATALIIA GOLDBERG 10/25/24 1837 R[facility] HEALTH CONSULTANT eval and treat Until therapy completed Acknowledged NATALIIA GOLDBERG 10/25/24 183 Inpatient Consult for [facility] Neurocognitive Screening Once Provider: (Not yet assigned) [...] 94% Order ID Start Status Ordering Provider [id number] 10/25/24 1740 Completed FRANSICO OATES [id number] 10/25/241999 Acknowledged FRANSICO OATES [id number] 10/26/24 0800 Acknowledged FRANSICO OATES 10/26/241999 Scheduled [...] Heparin STAT Comments: Stroke Alert Final result FRANSICO OATES 10/25/24 1739 APTT (PTT) STAT Comments: [...] branch. Occlusion of the left P2 segment HEAD KNITTING MACHINE FIXER (series 3 image 1 5). [MM] ED Course User Index [MM] Fransico Oates MD Ultimately, this patient was Was admitted (Admission) There were no encounter diagnoses.. Patient believed to require admission for the listed diagnoses. The Neurology service was consulted for admission and was agreeable to admit to ICU. ED Prescriptions None Disposition Admit Admitting/Attending Physician: DEIDRE BROWN [[id number]] Provider Care Team: DAIJA STROKE ICU [[id number]] [...] 5:35 PM EDT PT was seen at [facility] for a complaint of chest pain. While there, they observedhim having LT side facial droop and dysarthria. His LKN was some time last night before going to bed. OSH scanned and had concern for M2 occlusion but PT was moving during scan and unable to hold still. [facility] transported him to ER inpatient CT scanner. EMS advised that his HR was frequently in the 40's and PT speech got worse over time. GCS 13 on arrival. documented in this encounter Plan of Treatment Upcoming Encounters Date Type Department Care Team (Late st Contact Info) Description 01/21/2025 9:20 AM EDT Office Visit [facility] [address] [place] [address] Nissa Herzog PA [address] [place] [address] 06/10/2025 9:00 AM EST Office Visit [facility] [address] [place] [address] Korey Fernandes MD [address] [place] [address] Pending Results Name Type Priority Associated Diagnoses [...] HOUR, PLASMA Timed 10/25/2024 10:54 PM EDT [facility], E/M 30-74 MINUTES Routine 10/25/2024 [...] ADULT TRANSTHORACIC COMPLETE (10/27/2024 11:05 AM EDT) [facility] Signature BSA 2.41 m2 ANGIE [...] ANGIE ISCV PA acc time 140 msec ANGEI ISCV mean PAP 16 mmHg ANGIE ISCV MV dec time 230 ms ANGIE ISCV MV P1/2t 67 ms ANGIE ISCV MVA(P1/2t) 3.3 cm2 ANGIE ISCV Ao Root Diam 35 mm ANGIE ISCV PA MN(ACCEL) 16.4 mmHg ANGIE ISCV LVLs ap2 6.4 [...] is no recent study available for direct wiya-po-zcqg comparison. Left Ventricle The left ventricle is [...] is no recent study available for direct qvxb-uv-aeys comparison. Everett Zhang APRN CV ECHO PROCEDURES Final Result * Sodium, Plasma (10/27/2024 6:53 AM EDT) Sodium, Plasma 138 136 - 145 mmol/L 10/27/2024 7:20 AM EDT [facility] Blood Venous blood specimen / Unknown Venipuncture / Unknown 10/27/2024 6:53 AM EDT 10/27/2024 6:56 AM EDT Everett Zhang APRN LAB BLOOD ORDERABLES Elena l Result [facility] [address] [place] [address] * Sodium, Plasma (10/27/2024 12:53 AM EDT) Sodium, Plasma 139 136 - 145 mmol/L 10/27/2024 1:27 AM EDT [facility] Blood Venous blood specimen / Unknown Venipuncture / Unknown 10/27/2024 12:53 AM EDT 10/27/2024 12:57 AM EDT Everett Zhang FOOD OR BAGGAGE HANDLING RAMPMAN LAB BLOOD ORDERABLES Elena l Result [facility] [address] [place] [address] * CBC W/O Differential (10/27/2024 12:53 AM EDT) Pathologist [facility] WBC Count 8.68 3.70 - 10.30 10*3/uL LAB HEMATOLOGY METHOD 10/27/2024 1:05 AM EDT [facility] RBC Count 4.85 4.60 - 6.10 10*6/uL LAB HEMATOLOGY METHOD 10/27/2024 1:05 AM EDT [facility] HGB 14.0 13.7 - 17.5 g/dL LAB HEMATOLOGY METHOD 10/27/2024 1:05 AM EDT [facility] HCT 42.9 40.0 - 51.0 % LAB HEMATOLOGY METHOD 10/27/2024 1:05 AM EDT [facility] Platelet Count 194 155 - 369 10*3/uL LAB HEMATOLOGY METHOD 10/27/2024 1:05 AM EDT [facility] MCV 89 79 - 98 fL LAB HEMATOLOGY METHOD 10/27/2024 1:05 AM EDT [facility] MCH 28.9 26.0 - 32.0 pg LAB HEMATOLOGY METHOD 10/27/2024 1:05 AM EDT [facility] MCHC 32.6 30.7 - 35.5 g/dL LAB HEMATOLOGY METHOD 10/27/2024 1:05 AM EDT [facility] RDW 13.2 11.5 - 14.5 % LAB HEMATOLOGY METHOD 10/27/2024 1:05 AM EDT [facility] MPV 10.4 8.8 - 12.5 fL LAB HEMATOLOGY METHOD 10/27/2024 1:05 AM EDT [facility] nRBC 0.0 <=0.0 per 100 WBCs LAB HEMATOLOGY METHOD 10/27/2024 1:05 AM EDT [facility] Blood Venous blood specimen / Unknown Venipuncture / Unknown 10/27/2024 12:53 AM EDT 10/27/2024 12:57 AM EDT Everett Zhang FOOD OR BAGGAGE HANDLING RAMPMAN LAB BLOOD ORDERABLES Elena l Result [facility] [address] [place] [address] * (ABNORMAL) Basic Metabolic Panel, Plasma (10/27/2024 12:53 AM EDT) Glucose, Plasma 91 74 - 99 mg/dL 10/27/2024 1:27 AM EDT [facility] BUN, Plasma 11 8 - 23 mg/dL 10/27/2024 1:27 AM EDT [facility] Creatinine, Plasma 1.02 0.70 - 1.20 mg/dL 10/27/2024 1:27 AM EDT [facility] BUN/Creatinine Ratio 11 10/27/2024 1:27 AM EDT [facility] Sodium, Plasma 139 136 - 145 mmol/L 10/27/2024 1:27 AM EDT [facility] Potassium, Plasma 3.8 3.6 - 4.9 mmol/L 10/27/2024 1:27 AM EDT [facility] Chloride, Plasma 104 97 - 107 mmol/L 10/27/2024 1:27 AM EDT [facility] CO2, Plasma 25 22 - 29 mmol/L 10/27/2024 1:27 AM EDT [facility] Anion Gap 10 6 - 16 mmol/L 10/27/2024 1:27 AM EDT [facility] Total Calcium, Plasma 8.6(L) 8.9 - 10.2 mg/dL 10/27/2024 1:27 AM EDT [facility] eGFRcr 79.1 mL/min/1.7 3m*2 10/27/2024 1:27 AM EDT [facility] Comment:Reported eGFRcr in m L/min/1.73m2 is based the CKD-EPI 2020 equation that does not use a race coefficient. Blood Venous blood specimen / Unknown Venipuncture / Unknown 10/27/2024 12:53 AM EDT 10/27/2024 12:57 AM EDT Everett Zhang APRN LAB BLOOD ORDERABLES Elena l Result [facility] [address] [place] [address] * Magnesium, Plasma (10/27/2024 12:53 AM EDT) Magnesium, Plasma 2.3 1.9 - 2.4 mg/dL 10/27/2024 1:[address] [facility] Blood Venous blood specimen / Unknown Venipuncture / Unknown 10/27/2024 12:53 AM EDT 10/27/2024 12:57 AM EDT Everett Zhang APRN LAB BLOOD ORDERABLES Elena l Result Performing Organization Address [facility] Co de Phone Number [facility] [address] [place] [address] * Phosphorus, Plasma (10/27/2024 12:53 AM EDT) Phosphorus, Plasma 3.4 2.5 - 4.5 mg/dL 10/27/2024 1:[address] [facility] Blood Venous blood specimen / Unknown Venipuncture / Unknown 10/27/2024 12:53 AM EDT 10/27/2024 12:57 AM EDT Everett Tuan Zhang FOOD OR BAGGAGE HANDLING RAMPMAN LAB BLOOD ORDERABLES Elena l Result Performing Organization Address City/[facility]/ZIP Co de Phone Number [facility] [address] [place] [address] * (ABNORMAL) Ionized calcium, whole blood (10/27/2024 12:53 AM EDT) Ionized Calcium, Whole Blood 4.0(L) 4.6 - 5.1 mg/dL LAB HEMATOLOGY METHOD 10/27/2024 12:58 AM EDT [facility] Blood Venous blood specimen / Unknown Venipuncture / Unknown 10/27/2024 12:53 AM EDT 10/27/2024 12:57 AM EDT us Everett Zhang FOOD OR BAGGAGE HANDLING RAMPMAN LAB BLOOD ORDERABLES Elena hunter Result [facility] [address] [place] [address] * MR Head wo IV Contrast (10/26/2024 [...] - 145 mmol/L 10/26/2024 7:14 PM EDT [facility] Blood Venous blood specimen / Unknown Venipuncture / Unknown 10/26/2024 6:33 PM EDT 10/26/2024 6:49 PM EDT Everett Zhang APRN LAB BLOOD ORDERABLES Elena hunter Result [facility] [facility] [address] [place] [address] * Sodium, Plasma (10/26/2024 12:40 PM EDT) Sodium, Plasma 136 136 - 145 mmol/L 10/26/2024 1:08 PM EDT [facility] Blood Venous blood specimen / Unknown Venipuncture / Unknown 10/26/2024 12:40 PM EDT 10/26/2024 12:46 PM EDT us Everett Zhang FOOD [employer] LAB BLOOD ORDERABLES Elena l Result [facility] [address] [place] [address] * XR Abdomen 1 View (10/26/2024 5:05 [...] on 10/26/2024 7:53 AM us Everett Zhang FO[employer] IMG XR PROCEDURES Final R esult * [...] Detected Not Detected 10/26/2024 10:36 AM EDT [facility] Swab (Axilla and Groin) Non-blood Collection / Unknown 10/26/2024 3:43 AM EDT 10/26/2024 4:17 AM EDT Narrative [facility] - 10/26/2024 10:36 AM EDT This PCR assay was developed and its performance characteristics determined by [email or web address] as appropriate for clinical purposes. This assay has not been cleared or approved by the FDA, but is performed in a CLIA regulated laboratory that is qualified to perform high-complexity testing. us Deidre Brown MD LAB MICROBIOLOGY - GENERAL ORDERABLES Final Result [facility] [address] [place] [address] * Multi Drug Resistance Test (10/26/2024 3:43 AM EDT) Culture No Multi Drug Resistant Organisms Isolated 10/27/2024 8:13 AM EDT [facility] Swab (Nares and Catie Rectal) Non-blood Collection / Unknown 10/26/2024 3:43 AM EDT 10/26/2024 4:17 AM EDT Narrative [facility] - 10/27/2024 8:13 AM EDT This test was developed and its performance characteristics determined by the [facility]. Although the media is FDA-approved, it is not FDA-approved for all specimen types submitted. The FDA has determined that such clearance or approval is not necessary. This test is used for surveillance purposes. It should not be regarded as investigational or for research. The [facility] is certified under the Clinical Laboratory Improvement Amendments of 1988 (CLIA-88) as qualified to perform high complexity clinical laboratory testing. Deidre Brown MD LAB MICROBIOLOGY - GENERAL ORDERABLES Final Result [facility] [address] [place] [address] * (ABNORMAL) CBC W/O Differential (10/26/2024 3:43 AM EDT) WBC Count 13.15(H) 3.70 - 10.30 10*3/uL LAB HEMATOLOGY METHOD 10/26/2024 3:55 AM EDT [facility] RBC Count 4.76 4.60 - 6.10 10*6/uL LAB HEMATOLOGY METHOD 10/26/2024 3:55 AM EDT [facility] HGB 14.2 13.7 - 17.5 g/dL LAB HEMATOLOGY METHOD 10/26/2024 3:55 AM EDT [facility] HCT 41.1 40.0 - 51.0 % LAB HEMATOLOGY METHOD 10/26/2024 3:55 AM EDT [facility] Platelet Count 221 155 - 369 10*3/uL LAB HEMATOLOGY METHOD 10/26/2024 3:55 AM EDT [facility] MCV 86 79 - 98 fL LAB HEMATOLOGY METHOD 10/26/2024 3:55 AM EDT [facility] MCH 29.8 26.0 - 32.0 pg LAB HEMATOLOGY METHOD 10/26/2024 3:55 AM EDT [facility] MCHC 34.5 30.7 - 35.5 g/dL LAB HEMATOLOGY METHOD 10/26/2024 3:55 AM EDT [facility] RDW 13.0 11.5 - 14.5 % LAB HEMATOLOGY METHOD 10/26/2024 3:55 AM EDT [facility] MPV 10.3 8.8 - 12.5 fL LAB HEMATOLOGY METHOD 10/26/2024 3:55 AM EDT [facility] nRBC 0.0 <=0.0 per 100 WBCs LAB HEMATOLOGY METHOD 10/26/2024 3:55 AM EDT [facility] Blood Venous blood specimen / Unknown Venipuncture / Unknown 10/26/2024 3:43 AM EDT 10/26/2024 3:48 AM EDT Everett Zhang FO[employer] LAB BLOOD ORDERABLES Elena harrison Result [facility] [address] [place] [address] * (ABNORMAL) Basic Metabolic Panel, Plasma (10/26/2024 3:43 AM EDT) Glucose, Plasma 104(H) 74 - 99 mg/dL 10/26/2024 4:21 AM EDT [facility] BUN, Plasma 8 8 - 23 mg/dL 10/26/2024 4:21 AM EDT [facility] Creatinine, Plasma 0.97 0.70 - 1.20 mg/dL 10/26/2024 4:21 AM EDT [facility] BUN/Creatinine Ratio 8 10/26/2024 4:21 AM EDT [facility] Sodium, Plasma 134(L) 136 - 145 mmol/L 10/26/2024 4:21 AM EDT [facility] Potassium, Plasma 3.7 3.6 - 4.9 mmol/L 10/26/2024 4:21 AM EDT [facility] Chloride, Plasma 103 97 - 107 mmol/L 10/26/2024 4:21 AM EDT [facility] CO2, Plasma 22 22 - 29 mmol/L 10/26/2024 4:21 AM EDT [facility] Anion Gap 9 6 - 16 mmol/L 10/26/2024 4:21 AM EDT [facility] Total Calcium, Plasma 7.8(L) 8.9 - 10.2 mg/dL 10/26/2024 4:21 AM EDT [facility] eGFRcr 84.0 mL/min/1.7 3m*2 10/26/2024 4:21 AM EDT [facility] Comment:Reported eGFRcr in m L/min/1.73m2 is based the CKD-EPI 2020 equation that does not use a race coefficient. Blood Venous blood specimen / Unknown Venipuncture / Unknown 10/26/2024 3:43 AM EDT 10/26/2024 3:48 AM EDT Everett Zhang APRN LAB BLOOD ORDERABLES Elena l Result Performing Organization Address [facility] Co de Phone Number [facility] [address] [place] [address] * (ABNORMAL) Magnesium, Plasma (10/26/2024 3:43 AM EDT) Magnesium, Plasma 2.8(H) 1.9 - 2.4 mg/dL 10/26/2024 4:21 AM EDT [facility] Blood Venous blood specimen / Unknown Venipuncture / Unknown 10/26/2024 3:43 AM EDT 10/26/2024 3:48 AM EDT Everett Zhang APRN LAB BLOOD ORDERABLES Elena l Result [facility] [address] [place] [address] * Phosphorus, Plasma (10/26/2024 3:43 AM EDT) Phosphorus, Plasma 4.4 2.5 - 4.5 mg/dL 10/26/2024 4:21 AM EDT [facility] Blood Venous blood specimen / Unknown Venipuncture / Unknown 10/26/2024 3:43 AM EDT 10/26/2024 3:48 AM EDT Everett Zhang APRN LAB BLOOD ORDERABLES Elena l Result Performing Organization Address City/[facility]/ZIP Co de Phone Number [facility] [address] [place] [address] * (ABNORMAL) Ionized calcium, whole blood (10/26/2024 3:43 AM EDT) Ionized Calcium, Whole Blood 3.6(L) 4.6 - 5.1 mg/dL LAB HEMATOLOGY METHOD 10/26/2024 3:51 AM EDT [facility] Blood Venous blood specimen / Unknown Venipuncture / Unknown 10/26/2024 3:43 AM EDT 10/26/2024 3:50 AM EDT Everett Zhang APRN LAB BLOOD ORDERABLES Elena l Result Performing Organization Address [facility] [place] [address] * (ABNORMAL) T3 (10/26/2024 3:43 AM EDT) T3, Serum 67(L) 87 - 187 ng/dL 10/26/2024 4:46 AM EDT [facility] Blood Venous blood specimen / Unknown Venipuncture / Unknown 10/26/2024 3:43 AM EDT 10/26/2024 3:48 AM EDT Charly Marie MD LAB BLOOD ORDERABLES Final Resul t [facility] [address] [place] [address] * Troponin T, High Sensitivity, 2 Hour, Plasma (10/25/2024 10:54 PM EDT) Troponin T, High Sensitivity, 2 Hour 13 <19 ng/L 10/25/2024 11:29 PM EDT [facility] Blood Venous blood specimen / Unknown Venipuncture / Unknown 10/25/2024 10:54 PM EDT 10/25/2024 11:00 PM EDT Deidre Brown MD LAB BLOOD ORDERABLES Final Result [facility] [address] [place] [address] * [place] [facility], E/M 30-74 MINUTES (10/25/2024 8:54 [...] and Screen (10/25/2024 8:11 PM EDT) Pathologist [facility] ABO/Rh O Positive 10/25/2024 8:09 PM EDT BLOOD BANK Antibody Screen Negative 10/25/2024 8:09 PM EDT BLOOD BANK Specimen Expiration 10/28/2024 23:59 10/25/2024 8:09 PM EDT BLOOD BANK Blood Venous blood specimen / Unknown Venipuncture / Unknown 10/25/2024 8:11 PM EDT 10/25/2024 8:27 PM EDT Deidre Brown MD LAB BLOOD BANK TEST ORDERA BLES Final Result Performing Organization Address City/[facility]/ZIP Co de Phone Number BLOOD BANK [address] [place] [address], [place] * Troponin T, High Sensitivity, 0 Hour Plasma, Reflex to 2 Hour (10/25/2024 8:11 PM EDT) Pathologist [facility] Troponin T, High Sensitivity, 0 Hour 16 <19 ng/L 10/25/2024 9:03 PM EDT [facility] Blood Venous blood specimen / Unknown Venipuncture / Unknown 10/25/2024 8:11 PM EDT 10/25/2024 8:20 PM EDT Deidre Brown MD LAB BLOOD ORDERABLES Final Result [facility] [address] [place] [address] * Protime-INR (10/25/2024 8:11 PM EDT) Prothrombin Time 14.0 12.0 - 14.3 sec LAB COAGULATION METHOD 10/25/2024 8:56 PM EDT [facility] INR 1.1 0.9 - 1.1 LAB COAGULATION METHOD 10/25/2024 8:56 PM EDT [facility] Blood Venous blood specimen / Unknown Venipuncture / Unknown 10/25/2024 8:11 PM EDT 10/25/2024 8:20 PM EDT Narrative [facility] - 10/25/2024 8:56 PM EDT OPTIMAL INR RANGES FOR PATIENT ON ORAL ANTICOAGULANT THERAPY Prevention of venous thromboembolism INR 2.0 to 3.0 In patients with heart disease: Atrial fibrillation INR 2.0 to 3.0 Valvular heart disease INR 2.0 to 3.0 Tissue heart valves INR 2.0 to 3.0 Mechanical prosthetic valves INR 2.5 to 3.5 Prevention of recurrent FL INR 2.5 to 3.5 us Deidre Brown MD LAB BLOOD ORDERABLES Final Result [facility] [address] [place] [address] * APTT (10/25/2024 8:11 PM EDT) aPTT 26 25 - 35 sec LAB COAGULATION METHOD 10/25/2024 8:56 PM EDT [facility] Blood Venous blood specimen / Unknown Venipuncture / Unknown 10/25/2024 8:11 PM EDT 10/25/2024 8:20 PM EDT us Deidre Brown MD LAB BLOOD ORDERABLES Final Result [facility] [address] [place] [address] * (ABNORMAL) CBC and differential (10/25/2024 8:11 PM EDT) WBC Count 12.09(H) 3.70 - 10.30 10*3/uL LAB HEMATOLOGY METHOD 10/25/2024 8:32 PM EDT [facility] RBC Count 5.13 4.60 - 6.10 10*6/uL LAB HEMATOLOGY METHOD 10/25/2024 8:32 PM EDT [facility] HGB 15.1 13.7 - 17.5 g/dL LAB HEMATOLOGY METHOD 10/25/2024 8:32 PM EDT [facility] HCT 44.7 40.0 - 51.0 % LAB HEMATOLOGY METHOD 10/25/2024 8:32 PM EDT [facility] Platelet Count 222 155 - 369 10*3/uL LAB HEMATOLOGY METHOD 10/25/2024 8:32 PM EDT [facility] MCV 87 79 - 98 fL LAB HEMATOLOGY METHOD 10/25/2024 8:32 PM EDT [facility] MCH 29.4 26.0 - 32.0 pg LAB HEMATOLOGY METHOD 10/25/2024 8:32 PM EDT [facility] MCHC 33.8 30.7 - 35.5 g/dL LAB HEMATOLOGY METHOD 10/25/2024 8:32 PM EDT [facility] RDW 12.6 11.5 - 14.5 % LAB HEMATOLOGY METHOD 10/25/2024 8:32 PM EDT [facility] MPV 10.4 8.8 - 12.5 fL LAB HEMATOLOGY METHOD 10/25/2024 8:32 PM EDT [facility] nRBC 0.0 <=0.0 per 100 WBCs LAB HEMATOLOGY METHOD 10/25/2024 8:32 PM EDT [facility] Differential Type Automated LAB HEMATOLOGY METHOD 10/25/2024 8:32 PM EDT [facility] Neutrophils % 87 % LAB HEMATOLOGY METHOD 10/25/2024 8:32 PM EDT [facility] Lymphocytes % 9 % LAB HEMATOLOGY METHOD 10/25/2024 8:32 PM EDT [facility] Monocytes % 4 % LAB HEMATOLOGY METHOD 10/25/2024 8:32 PM EDT [facility] Eosinophils % 0 % LAB HEMATOLOGY METHOD 10/25/2024 8:32 PM EDT [facility] Basophils % 0 % LAB HEMATOLOGY METHOD 10/25/2024 8:32 PM EDT [facility] Immature Granulocytes % 0 % LAB HEMATOLOGY METHOD 10/25/2024 8:32 PM EDT [facility] Neutrophils Absolute 10.40(H) 1.60 - 6.10 10*3/uL LAB HEMATOLOGY METHOD 10/25/2024 8:32 PM EDT [facility] Lymphocytes Absolute 1.08(L) 1.20 - 3.90 10*3/uL LAB HEMATOLOGY METHOD 10/25/2024 8:32 PM EDT [facility] Monocytes Absolute 0.50 0.30 - 0.90 10*3/uL LAB HEMATOLOGY METHOD 10/25/2024 8:32 PM EDT [facility] Eosinophils Absolute 0.02 0.00 - 0.50 10*3/uL LAB HEMATOLOGY METHOD 10/25/2024 8:32 PM EDT [facility] Basophils Absolute 0.04 0.00 - 0.10 10*3/uL LAB HEMATOLOGY METHOD 10/25/2024 8:32 PM EDT [facility] Immature Granulocytes Absolute 0.05 0.00 - 0.06 10*3/uL LAB HEMATOLOGY METHOD 10/25/2024 8:32 PM EDT [facility] Blood Venous blood specimen / Unknown Venipuncture / Unknown 10/25/2024 8:11 PM EDT 10/25/2024 8:20 PM EDT [facility] - 10/25/2024 8:32 PM EDT Therapeutic decision making should be based on absolute values, rather than percentages. us Deidre Brown MD LAB BLOOD ORDERABLES Final Result [facility] [address] [place] [address] * (ABNORMAL) Basic metabolic panel (10/25/2024 8:11 PM EDT) Glucose, Plasma 140(H) 74 - 99 mg/dL 10/25/2024 9:02 PM EDT [facility] BUN, Plasma 7(L) 8 - 23 mg/dL 10/25/2024 9:02 PM EDT [facility] Creatinine, Plasma 0.93 0.70 - 1.20 mg/dL 10/25/2024 9:02 PM EDT [facility] BUN/Creatinine Ratio 8 10/25/2024 9:02 PM EDT [facility] Sodium, Plasma 135(L) 136 - 145 mmol/L 10/25/2024 9:02 PM EDT [facility] Potassium, Plasma 3.6 3.6 - 4.9 mmol/L 10/25/2024 9:02 PM EDT [facility] Chloride, Plasma 99 97 - 107 mmol/L 10/25/2024 9:02 PM EDT [facility] CO2, Plasma 22 22 - 29 mmol/L 10/25/2024 9:02 PM EDT [facility] Anion Gap 14 6 - 16 mmol/L 10/25/2024 9:02 PM EDT [facility] Total Calcium, Plasma 8.8(L) 8.9 - 10.2 mg/dL 10/25/2024 9:02 PM EDT [facility] eGFRcr 88.3 mL/min/1.7 3m*2 10/25/2024 9:02 PM EDT [facility] Comment:Reported eGFRcr in m L/min/1.73m2 is based the CKD-EPI 2020 equation that does not use a race coefficient. Blood Venous blood specimen / Unknown Venipuncture / Unknown 10/25/2024 8:11 PM EDT 10/25/2024 8:20 PM EDT us Deidre Brown MD LAB BLOOD ORDERABLES Final Result [facility] [address] [place] [address] * T4, free (10/25/2024 8:11 PM EDT) Free T4, Plasma 1.0 0.8 - 1.7 ng/dL 10/25/2024 9:02 PM EDT [facility] Blood Venous blood specimen / Unknown Venipuncture / Unknown 10/25/2024 8:11 PM EDT 10/25/2024 8:20 PM EDT us Sundar Ortiz MD LAB BLOOD [place] [address] * (ABNORMAL) Sodium, Plasma (10/25/2024 8:11 PM EDT) Sodium, Plasma 135(L) 136 - 145 mmol/L 10/25/2024 9:[address] [facility] Blood Venous blood specimen / Unknown Venipuncture / Unknown 10/25/2024 8:11 PM EDT 10/25/2024 8:20 PM EDT Everett Zhang APRN LAB BLOOD [place] [address] * (ABNORMAL) Ionized calcium, whole blood (10/25/2024 8:11 PM EDT) [facility] Ionized Calcium, Whole Blood 4.0(L) 4.6 - 5.1 mg/dL LAB HEMATOLOGY METHOD 10/25/2024 8:24 PM EDT [facility] Blood Venous blood specimen / Unknown Venipuncture / Unknown 10/25/2024 8:11 PM EDT 10/25/2024 8:23 PM EDT Everett Zhang APRN LAB BLOOD ORDERABLES Elena l Result [address] [address] [place] [address] * (ABNORMAL) POCT glucose meter (10/25/2024 8:02 [...] Comment 10/25/2024 8:04 PM EDT [facility] Machine Paint Mixer ID Aaliyah Kiran 10/25/2024 8:04 PM EDT HEALTH[facility]ARE LAB Device ID [id number] 10/25/2024 8:04 PM EDT [facility]ALTH[facility]ARE LAB Specimen Type POC Capillary 10/25/2024 8:04 PM EDT [facility]ALTH[facility] Blood Capillary blood specimen / Unknown 10/25/2024 8:02 PM EDT 10/25/2024 8:04 PM EDT us Deidre Brown MD LAB POINT OF CARE TEST DOCKED DEVICE UNSOLICITED RESULTS Final Result Performing Organization Address City/[facility]/ZIP Co de Phone Number [facility] [address] [place] [address] * (ABNORMAL) Sodium, Plasma (10/25/2024 7:03 PM EDT) Pathologist [facility] Sodium, Plasma 134(L) 136 - 145 mmol/L 10/25/2024 7:26 PM EDT [facility] Blood Venous blood specimen / Unknown Venipuncture / Unknown 10/25/2024 7:03 PM EDT 10/25/2024 7:07 PM EDT us Everett Zhang FOOD [employer] LAB BLOOD ORDERABLES Elena l Result [facility] [address] [place] [address] * (ABNORMAL) Basic Metabolic Panel, Plasma (10/25/2024 7:03 PM EDT) Glucose, Plasma 125(H) 74 - 99 mg/dL 10/25/2024 7:26 PM EDT [facility] BUN, Plasma 7(L) 8 - 23 mg/dL 10/25/2024 7:26 PM EDT [facility] Creatinine, Plasma 0.83 0.70 - 1.20 mg/dL 10/25/2024 7:26 PM EDT [facility] BUN/Creatinine Ratio 8 10/25/2024 7:26 PM EDT [facility] Sodium, Plasma 134(L) 136 - 145 mmol/L 10/25/2024 7:26 PM EDT [facility] Potassium, Plasma 3.0(L) 3.6 - 4.9 mmol/L 10/25/2024 7:26 PM EDT [facility] Chloride, Plasma 100 97 - 107 mmol/L 10/25/2024 7:26 PM EDT [facility] CO2, Plasma 21(L) 22 - 29 mmol/L 10/25/2024 7:26 PM EDT [facility] Anion Gap 13 6 - 16 mmol/L 10/25/2024 7:26 PM EDT [facility] Total Calcium, Plasma 7.9(L) 8.9 - 10.2 mg/dL 10/25/2024 7:26 PM EDT [facility] eGFRcr 94.2 mL/min/1.7 3m*2 10/25/2024 7:26 PM EDT [facility] Comment:Reported eGFRcr in m L/min/1.73m2 is based the CKD-EPI 2020 equation that does not use a race coefficient. Blood Venous blood specimen / Unknown Venipuncture / Unknown 10/25/2024 7:03 PM EDT 10/25/2024 7:07 PM EDT Everett Zhang [employer] LAB BLOOD ORDERABLES Elena l Result [facility] [address] [place] [address] * (ABNORMAL) Phosphorus (10/25/2024 7:03 PM EDT) Phosphorus, Plasma 1.8(L) 2.5 - 4.5 mg/dL 10/25/2024 7:26 PM EDT [facility] Blood Venous blood specimen / Unknown Venipuncture / Unknown 10/25/2024 7:03 PM EDT 10/25/2024 7:07 PM EDT Everett Zhang APRN LAB BLOOD ORDERABLES Elena l Result Performing Organization Address City/[facility]/ZIP Co de Phone Number [facility] [address] [place] [address] * (ABNORMAL) Magnesium, Plasma (10/25/2024 7:03 PM EDT) Magnesium, Plasma 1.7(L) 1.9 - 2.4 mg/dL 10/25/2024 7:26 PM EDT [facility] Blood Venous blood specimen / Unknown Venipuncture / Unknown 10/25/2024 7:03 PM EDT 10/25/2024 7:07 PM EDT Everett Zhang APRN LAB BLOOD ORDERABLES Elena l Result Performing Organization Address City/[facility]/ZIP Co de Phone Number [facility] [address] [place] [address] * (ABNORMAL) Lipid panel (10/25/2024 7:03 PM EDT) Cholesterol, Plasma 178 <200 mg/dL 10/25/2024 7:51 PM EDT [facility] Comment: Cholesterol Reference Range (age >17 years): Desirable <200 mg/dL Borderline 200 to 239 mg/dL Undesirable >239 mg/dL HDL 36(L) >=40 mg/dL 10/25/2024 7:51 PM EDT [facility] Comment: HDL Cholesterol Reference Ranges (age >17 years): Female, acceptable > or = 50 mg/dL Male, acceptable > or = 40 mg/dL Triglycerides, Plasma 148 <150 mg/dL 10/25/2024 7:51 PM EDT [facility] Comment: Triglyceride Reference Range (age >17 years): Desirable: <150 mg/dL Borderline high: 150 to 199 mg/dL High: 200 to 499 mg/dL Very high: >499 mg/dL Increased risk of pancreatitis: >1000 mg/dL Cholesterol/HDL Ratio 5 10/25/2024 7:51 PM EDT [facility] LDL, Calculated 115(H) <100 mg/dL 7:51 PM EDT [facility] Comment: LDL Cholesterol Reference Range (age [...] 12 hours? Unknown 10/25/2024 7:51 PM EDT [facility] Blood Venous blood specimen / Unknown Venipuncture / Unknown 10/25/2024 7:03 PM EDT 10/25/2024 7:07 PM EDT us Deidre Brown MD LAB BLOOD ORDERABLES Final Result [facility] [address] [place] [address] * Troponin T, High Sensitivity, 2 Hour, Plasma (10/25/2024 7:03 PM EDT) Troponin T, High Sensitivity, 2 Hour 15 <19 ng/L 10/25/2024 7:28 PM EDT [facility] Troponin Delta Interpretation Not Calculated 10/25/2024 7:28 PM EDT [facility] Comment:Specimen not collect ed within acceptable timeframe. Delta will not be calculated. Blood Venous blood specimen / Unknown Venipuncture / Unknown 10/25/2024 7:03 PM EDT 10/25/2024 7:07 PM EDT us Scott Rankin MD LAB BLOOD ORDERABLES Fi nal Result Performing Organization Address [facility]/ZIP Co de Phone Number [facility] [address] [place] [address] * (ABNORMAL) TSH (10/25/2024 6:40 PM EDT) Pathologist [facility] Thyroid Stimulating Hormone, Plasma 48.20(H) 0.40 - 4.20 uIU/mL 10/25/2024 7:26 PM EDT [facility] Blood Venous blood specimen / Unknown Venipuncture / Unknown 10/25/2024 6:40 PM EDT 10/25/2024 6:42 PM EDT Deidre Brown MD LAB BLOOD ORDERABLES Final Result Performing Organization Address [facility] Co de Phone Number [facility] [address] [place] [address] * ECG Adult (10/25/2024 6:34 PM EDT) [facility] EKG DIAGNOSIS CLASS Abnormal MUSE ECG Ventricular Rate 64 BPM MUSE ECG Atrial Rate 64 BPM MUSE ECG MN Interval 300 ms MUSE ECG QRSD Interval 94 ms MUSE ECG QT Interval 438 ms MUSE ECG QTC Interval 451 ms MUSE ECG P [place] 49 degrees MUSE ECG R [place] 202 degrees MUSE ECG T Wave [place] 9 degrees MUSE ECG Diagnosis Sinus rhythm with 1st degree AV block MUSE ECG Diagnosis Abnormal ECG MUSE ECG Diagnosis MUSE ECG Diagnosis Confirmed by Yves Harris ([id number]) on 10/26/2024 11:25:24 AM MUSE ECG 10/25/2024 6:34 PM EDT 10/26/2024 11:25 AM EDT Scott Rankin MD ECG ORDERABLES Final R esult Performing Organization Address City/[facility] Co de Phone Number MUSE ECG * Hemoglobin A1c (10/25/2024 6:02 PM EDT) Pathologist [facility] Hemoglobin A1c 5.6 <5.7 % 10/26/2024 11:41 AM EDT [facility] Blood Venous blood specimen / Unknown Venipuncture / Unknown 10/25/2024 6:02 PM EDT 10/25/2024 6:10 PM EDT Narrative [facility] - 10/26/2024 11:41 AM EDT HA1C Interpretive Data: Diagnosis of Diabetes: Diabetic > or = 6.5% Pre-diabetic 5.7 to 6.4% Non-diabetic < or = 5.6% Glycemic Targets for Type I and Type II Diabetics: Non- Adults <7.0% Adults <6.0% Children and Adolescents <7.5% Source: [place] [employer]. Standards of medical care in diabetes,2017. Diabetes Care.2017:40 (suppl 1):S1-S135. us Deidre Brown MD LAB BLOOD ORDERABLES Final Result Performing Organization Address City/[facility] Co de Phone Number [facility] [address] [place] [address] * ED HIV 1/2 Antibody/Antigen Screen w/Reflex to HIV 1/2 Differentiation (10/25/2024 6:02 PM EDT) HIV 1 & 2 Antibody/Antigen Screen Non Reactive Non Reactive 10/25/2024 6:54 PM EDT [facility] Comment:Screening for HIV 1 & 2 antibodies, and P24 antigen is NONREACTIVE. No confirmatory testing is required. Blood Venous blood specimen / Unknown Venipuncture / Unknown 10/25/2024 6:02 PM EDT 10/25/2024 6:14 PM EDT us Scott Rankin MD LAB BLOOD ORDERABLES Fi nal Result [facility] [address] [place] [address] * Hepatitis C Antibody - ED (10/25/2024 6:02 PM EDT) Hepatitis C Antibody Negative Negative 10/25/2024 7:44 PM EDT [facility] [facility] Blood Venous blood specimen / Unknown Venipuncture / Unknown 10/25/2024 6:02 PM EDT 10/25/2024 6:14 PM EDT us Scott Rankin MD LAB BLOOD ORDERABLES Fi nal Result [facility] [address] [place] [address] * Troponin now and 120 min (10/25/2024 6:02 PM EDT) Troponin T, High Sensitivity, 0 Hour 15 <19 ng/L 10/25/2024 6:33 PM EDT [facility] Blood Venous blood specimen / Unknown Venipuncture / Unknown 10/25/2024 6:02 PM EDT 10/25/2024 6:10 PM EDT us Scott Rankin MD LAB BLOOD ORDERABLES Fi nal Result Performing Organization Address City/[facility]/ZIP Co de Phone Number [facility] [address] [place] [address] * (ABNORMAL) Comprehensive Metabolic Panel (10/25/2024 6:02 PM EDT) Glucose, Plasma 133(H) 74 - 99 mg/dL 10/25/2024 6:33 PM EDT [facility] BUN, Plasma 8 8 - 23 mg/dL 10/25/2024 6:33 PM EDT [facility] Creatinine, Plasma 0.94 0.70 - 1.20 mg/dL 10/25/2024 6:33 PM EDT [facility] BUN/Creatinine Ratio 9 10/25/2024 6:33 PM EDT [facility] Sodium, Plasma 131(L) 136 - 145 mmol/L 10/25/2024 6:33 PM EDT [facility] Potassium, Plasma 3.5(L) 3.6 - 4.9 mmol/L 10/25/2024 6:33 PM EDT [facility] Chloride, Plasma 97 97 - 107 mmol/L 10/25/2024 6:33 PM EDT [facility] CO2, Plasma 21(L) 22 - 29 mmol/L 10/25/2024 6:33 PM EDT [facility] Anion Gap 13 6 - 16 mmol/L 10/25/2024 6:33 PM EDT [facility] Total Calcium, Plasma 8.6(L) 8.9 - 10.2 mg/dL 10/25/2024 6:33 PM EDT [facility] Total Protein 7.5 6.3 - 7.9 g/dL 10/25/2024 6:33 PM EDT [facility] Albumin, Plasma 4.2 3.5 - 5.2 g/dL 10/25/2024 6:33 PM EDT [facility] AST, Plasma 21 10 - 50 U/L 10/25/2024 6:33 PM EDT [facility] ALT, Plasma 21 10 - 50 U/L 10/25/2024 6:33 PM EDT [facility] Alkaline Phosphatase, Plasma 75 40 - 115 U/L 10/25/2024 6:33 PM EDT [facility] Total Bilirubin, Plasma 0.9 0.2 - 1.1 mg/dL 10/25/2024 6:33 PM EDT [facility] eGFRcr 87.2 mL/min/1.7 3m*2 10/25/2024 6:33 PM EDT [facility] Comment:Reported eGFRcr in m L/min/1.73m2 is based the CKD-EPI 2020 equation that does not use a race coefficient. Blood Venous blood specimen / Unknown Venipuncture / Unknown 10/25/2024 6:02 PM EDT 10/25/2024 6:10 PM EDT us Scott Rankin MD LAB BLOOD ORDERABLES Fi nal Result [facility] [address] [place] [address] * APTT (PTT) (10/25/2024 6:02 PM EDT) aPTT 27 25 - 35 sec 10/25/2024 6:25 PM EDT [facility] Blood Venous blood specimen / Unknown Venipuncture / Unknown 10/25/2024 6:02 PM EDT 10/25/2024 6:10 PM EDT Scott Rankin MD LAB BLOOD ORDERABLES Fi nal Result Performing Organization Address [facility] [place] [address] * Anti Xa Level Unfractionated Heparin (10/25/2024 6:02 PM EDT) Anti Xa Level Unfractionated Heparin <0.11 <1.00 IU/mL 10/25/2024 6:[address] [facility] Blood Venous blood specimen / Unknown Venipuncture / Unknown 10/25/2024 6:02 PM EDT 10/25/2024 6:10 PM EDT Narrative [facility] - 10/25/2024 6:26 PM EDT Therapeutic Range: UFH Full Dose and ACS/FL protocols*: 0.30 - 0.70 IU/mL UFH Low Dose protocol*: 0.25 - 0.50 IU/mL UFH prophylaxis: Not established Scott Rankin MD LAB BLOOD ORDERABLES Fi nal Result Performing Organization Address [facility] Co de Phone Number [facility] [address] [place] [address] * Prothrombin Time (10/25/2024 6:02 PM EDT) Prothrombin Time 13.8 12.0 - 14.3 sec 10/25/2024 6:24 PM EDT [facility] INR 1.1 0.9 - 1.1 10/25/2024 6:[address] [facility] Blood Venous blood specimen / Unknown Venipuncture / Unknown 10/25/2024 6:02 PM EDT 10/25/2024 6:10 PM EDT Narrative [facility] - 10/25/2024 6:24 PM EDT OPTIMAL INR RANGES FOR PATIENT ON ORAL ANTICOAGULANT THERAPY Prevention of venous thromboembolism INR 2.0 to 3.0 In patients with heart disease: Atrial fibrillation INR 2.0 to 3.0 Valvular heart disease INR 2.0 to 3.0 Tissue heart valves INR 2.0 to 3.0 Mechanical prosthetic valves INR 2.5 to 3.5 Prevention of recurrent FL INR 2.5 to 3.5 us Scott Rankin MD LAB BLOOD ORDERABLES Fi nal Result [facility] [address] [place] [address] * (ABNORMAL) CBC with Diff (10/25/2024 6:02 PM EDT) WBC Count 11.74(H) 3.70 - 10.30 10*3/uL LAB HEMATOLOGY METHOD 10/25/2024 6:12 PM EDT [facility] RBC Count 5.36 4.60 - 6.10 10*6/uL LAB HEMATOLOGY METHOD 10/25/2024 6:12 PM EDT [facility] HGB 15.8 13.7 - 17.5 g/dL LAB HEMATOLOGY METHOD 10/25/2024 6:12 PM EDT [facility] HCT 46.3 40.0 - 51.0 % LAB HEMATOLOGY METHOD 10/25/2024 6:12 PM EDT [facility] Platelet Count 215 155 - 369 10*3/uL LAB HEMATOLOGY METHOD 10/25/2024 6:12 PM EDT [facility] MCV 86 79 - 98 fL LAB HEMATOLOGY METHOD 10/25/2024 6:12 PM EDT [facility] MCH 29.5 26.0 - 32.0 pg LAB HEMATOLOGY METHOD 10/25/2024 6:12 PM EDT [facility] MCHC 34.1 30.7 - 35.5 g/dL LAB HEMATOLOGY METHOD 10/25/2024 6:12 PM EDT [facility] RDW 12.8 11.5 - 14.5 % LAB HEMATOLOGY METHOD 10/25/2024 6:12 PM EDT [facility] MPV 10.4 8.8 - 12.5 fL LAB HEMATOLOGY METHOD 10/25/2024 6:12 PM EDT [facility] nRBC 0.0 <=0.0 per 100 WBCs LAB HEMATOLOGY METHOD 10/25/2024 6:12 PM EDT [facility] Differential Type Automated LAB HEMATOLOGY METHOD 10/25/2024 6:12 PM EDT [facility] Neutrophils % 82 % LAB HEMATOLOGY METHOD 10/25/2024 6:12 PM EDT [facility] Lymphocytes % 11 % LAB HEMATOLOGY METHOD 10/25/2024 6:12 PM EDT [facility] Monocytes % 5 % LAB HEMATOLOGY METHOD 10/25/2024 6:12 PM EDT [facility] Eosinophils % 1 % LAB HEMATOLOGY METHOD 10/25/2024 6:12 PM EDT [facility] Basophils % 0 % LAB HEMATOLOGY METHOD 10/25/2024 6:12 PM EDT [facility] Immature Granulocytes % 1 % LAB HEMATOLOGY METHOD 10/25/2024 6:12 PM EDT [facility] Neutrophils Absolute 9.65(H) 1.60 - 6.10 10*3/uL LAB HEMATOLOGY METHOD 10/25/2024 6:12 PM EDT [facility] Lymphocytes Absolute 1.29 1.20 - 3.90 10*3/uL LAB HEMATOLOGY METHOD 10/25/2024 6:12 PM EDT [facility] Monocytes Absolute 0.62 0.30 - 0.90 10*3/uL LAB HEMATOLOGY METHOD 10/25/2024 6:12 PM EDT [facility] Eosinophils Absolute 0.07 0.00 - 0.50 10*3/uL LAB HEMATOLOGY METHOD 10/25/2024 6:12 PM EDT [facility] Basophils Absolute 0.05 0.00 - 0.10 10*3/uL LAB HEMATOLOGY METHOD 10/25/2024 6:12 PM EDT [facility] Immature Granulocytes Absolute 0.06 0.00 - 0.06 10*3/uL LAB HEMATOLOGY METHOD 10/25/2024 6:12 PM EDT [facility] Blood Venous blood specimen / Unknown Venipuncture / Unknown 10/25/2024 6:02 PM EDT 10/25/2024 6:10 PM EDT [facility] - 10/25/2024 6:12 PM EDT Therapeutic decision making should be based on absolute values, rather than percentages. us Scott Rankin MD LAB BLOOD ORDERABLES Fi nal Result [facility] [address] [place] [address] * CT Angio Neck (10/25/2024 5:57 PM [...] branch. Occlusion of the left P2 segment HEAD KNITTING MACHINE FIXER (series 3 image 1 5). CRITICAL RESULT: [...] Total DLP (Dose-Length Product): 2056.29 mGy.cm (accession [id number]), 2056.29 mGy.cm (accession [id number]), 2056.29 mGy.cm (accession [id number]). Please note: The reported value represents the [...] air cells are clear. CTA Head: Bilateral kayak maker. Significant critical stenosis of the right M1 [...] Total DLP (Dose-Length Product): 2056.29 mGy.cm (accession [id number]),2056.29 mGy.cm (accession [id number]), 2056.29 mGy.cm (accession [id number]).Please note: The reported value represents the total [...] air cells are clear. CTA Head: Bilateral kayak maker. Significant critical stenosis of the right Y0wnoyror. There is reduced caliber of the right [...] branch. Occlusion of the left P2 segment HEAD KNITTING MACHINE FIXER (series 3 image 1 5). CRITICAL RESULT: No. COMMUNICATION: Per this written report. Drafted by Beulah Hu MD on 10/25/2024 6:08 PM Final report signed by Beulah Hu MD on 10/25/2024 6:34 PM us Scott Rankin MD IMG CT PROCEDURES Final Result * CT Angio Head (10/25/2024 5:57 PM EDT) Anatomical Region Laterality Modality [facility] Computed Tomogr aphy Impressions 10/25/2024 6:34 PM EDT Evolving ischemic infarct of the right MCA territory. Subcentimeter hypodensity in the left basal ganglia suggestive of a age- indeterminate lacunar infarct. Significant critical stenosis of the right M1 segment.There is reduced caliber of the right M2 segment superior branch. Occlusion of the left P2 segment HEAD KNITTING MACHINE FIXER (series 3 image 1 5). CRITICAL RESULT: [...] Total DLP (Dose-Length Product): 2056.29 mGy.cm (accession [id number]), 2056.29 mGy.cm (accession [id number]), 2056.29 mGy.cm (accession [id number]). Please note: The reported value represents the [...] air cells are clear. CTA Head: Bilateral kayak maker. Significant critical stenosis of the right M1 [...] Total DLP (Dose-Length Product): 2056.29 mGy.cm (accession [id number]),2056.29 mGy.cm (accession [id number]), 2056.29 mGy.cm (accession [id number]).Please note: The reported value represents the total [...] air cells are clear. CTA Head: Bilateral kayak maker. Significant critical stenosis of the right Y2veewvll. There is reduced caliber of the right [...] branch. Occlusion of the left P2 segment HEAD KNITTING MACHINE FIXER (series 3 image 1 5). CRITICAL RESULT: [...] branch. Occlusion of the left P2 segment HEAD KNITTING MACHINE FIXER (series 3 image 1 5). CRITICAL RESULT: [...] Total DLP (Dose-Length Product): 6.29 mGy.cm (accession [id number]), 6.29 mGy.cm (accession [id number]), 2056.29 mGy.cm (accession [id number]). Please note: The reported value represents the [...] air cells are clear. CTA Head: Bilateral kayak maker. Significant critical stenosis of the right M1 [...] Total DLP (Dose-Length Product): 6.29 mGy.cm (accession [id number]),6.29 mGy.cm (accession [id number]), 2056.29 mGy.cm (accession [id number]).Please note: The reported value represents the total [...] air cells are clear. CTA Head: Bilateral kayak maker. Significant critical stenosis of the right D5xkvrpsz. There is reduced caliber of the right [...] branch. Occlusion of the left P2 segment HEAD KNITTING MACHINE FIXER (series 3 image 1 5). CRITICAL RESULT: No. COMMUNICATION: Per this written report. Drafted by Beulah Hu MD on 10/25/2024 6:08 PM Final report signed by Beulah Hu MD on 10/25/2024 6:34 PM Scott Rankin MD IMG CT PROCEDURES Final Result * (ABNORMAL) POCT glucose meter (10/25/2024 5:42 PM EDT) POCT Glucose 120(H) 74 - 99 mg/dL 10/25/2024 5:43 PM EDT [facility] Comment:Accuracy of a glucos e result [...] Comment 10/25/2024 5:43 PM EDT [facility] Machine Paint Mixer ID Tanika Swain 025 5:43 PM EDT [facility] Device ID [id number] 10/25/2024 5:43 PM EDT [facility] Specimen Type POC Capillary 10/25/2024 5:43 PM EDT [facility] Blood Capillary blood specimen / Unknown 10/25/2024 5:42 PM EDT 10/25/2024 5:43 PM EDT us Generic Provider Poct LAB POINT OF CARE TEST DOCKED DEVICE UNSOLICITED RESULTS Final Result [facility] [address] [place] [address] documented in this encounter Visit Diagnoses Diagnosis [...] 4 mg, Intravenous, Once, 1 dose, On [facility] 10/25/24 at 2100, Routine Given 10/25/2024 [...] 1 hour, 4 doses, First dose on [facility] 10/25/24 at 2100, Last dose on [place] 10/26/24 at 0000, RoutineIndications:Hypokalemia New Bag 10/26/2024 [...] 0642 (Given - Provid er: Real Buitrago, LEEANNE) potassium chloride IVPB 10 mEq (COMPLETED) 10 [...] documented as of this encounter Care Teams Kraft Digester Operator Relationship Specialty Start Date End Date Pcp, [place] [address] PCP - General Family Medicine 09/26/24 11/04/24 documented as of this encounter
--- OUTSIDE RECORDS SUMMARY | 2024-10-31 15:30 | XMS_ITS | Encounter Summary ---
Author Organization Healthcare Address [address] [place] [address] Care Team Providers Care Monomer Recovery Supervisor Name Role Phone Pcp, No Primary Care Provider Unavailabl e Marzena Sosa LPN Unavailable Unavailabl e Reason for Visit * Consultation (Routine) - Closed Specialty Diagnoses / Procedures Referred By Lito sibley Referred To Contact Neurology Diagnoses Aphasia Liliane Hussein MD [address] [place] [address] Phone: tel: fax: Referral ID Status Reason Start Date Expiration Date V isits Requested Visits Authorized [id number] Closed Specialty Services Required 10/27/2024 04/28/2026 1 1 Encounter Details Date Type Department Care Team (Late st Contact Info) Description 10/31/2024 3:30 PM EDT Office Visit [place] [facility] [address] [place] [address] Sofia Dillard, YASMANY [address] [place] [address] TIA (transient ischemic attack) (Primary Dx) Social History Tobacco Use Types Packs/Day Years Used Date Smoking Tobacco: Former Cigarettes 3 33 1 967 - 2000 Passive Smoke Exposure: Past Tobacco Cessation:Counseling Given: Not Answered Alcohol Use Standard Drinks/Week Comments Not Currently 0 (1 standard drink = 0.6 oz pur e alcohol) Moderate PHQ-2 Answer Date Recorded Patient Health Questionnaire-2 [...] any time in the past 12 m [facility], were you homeless or living in a retirement (including now)? No 10/28/2024 Utilities Answer Date Recorded In the past 12 months has th e electric, gas, oil, or water company threatened to shut off services in your home? No 10/28/2024 Sex and Gender Information Value Date Recorded Sex Assigned at Not on file Legal Sex Male 4:15 PM EDT Gender Identity Not on file Sexual Orientation Not on file documented as of this encounter Last Filed Vital Signs Vital Sign Reading Time Taken Comments Blood Pressure 140/68 10/31/2024 3:33 PM EDT Pulse 75 10/31/2024 3:33 PM EDT Temperature - - Respiratory Rate - - Oxygen Saturation 97% 10/31/2024 3:33 PM EDT Inhaled Oxygen Concentration - - Weight 120 kg (265 lb 3.4 oz) 10/31/2024 3:33 PM EDT Height 182.9 cm (6') 10/31/2024 3:33 PM EDT Body Mass Index 35.97 10/31/2024 3:33 PM EDT documented in this encounter Functional [...] 10/19 3:42 PM EDT Antonio Zaragoza * If you checked off any problems [...] all 10/31/2024 3:42 PM EDT Antonio Zaragoza documented as of this encounter Miscellaneous Notes * Progress Notes - Sofia Dillard PA - 10/31/2024 3:30 PM EDT Transitional Care Management Progress Note Patient presents for a Transitions of Care follow up. Admit date: 10/25/2024. Discharge date: 10/27/2024. ANGELO follow up phone call: 10/28/2024, recorded in the chart. Patient was seen [id number] within 7 days after discharge. [facility] Specialty: Stroke Subjective Edwin Cook presents to the office today for stroke transitional care management. The patient presented with initial deficits of [...] day of discharge, patient's NIHSS is 0. He presents to the clinic today for follow up. He is unaccompanied. He reports that he is doing well at home since his hospital discharge. He has had no new focal neurologic deficits concerning for new stroke or TIA. He continues aspirin, plavix, and atorvastatin for secondary prevention of stroke. He remains independent with ADLs. He has been driving with no issues. He lives at home with his . Cardiac event monitor is in place. Past Medical History[1] Family History[2] Surgical History[3] Social History Tobacco Use Smoking status: Former Current packs/day: 0.00 Average packs/day: 3.0 packs/day for 33.0 years (99.0 ttl pk-yrs) Types: Cigarettes Start date: 1966 Quit date: 1999 Years since quittin. Passive exposure: Past Smokeless tobacco: Not on file Substance Use Topics Alcohol use: Not Currently Comment: Moderate Medications Ordered Prior to Encounter[4] Allergies[5] All medications have been reviewed today. The following portions of the chart were reviewed this encounter and updated as appropriate: Review of Systems All other systems reviewed and are negative. Objective Vitals: 10/31/24 1533 BP: (!) 140/68 Pulse: 75 SpO2: 97% Physical Exam Constitutional: Patient in no acute distress. Patient appears stated age. Eyes: Anicteric sclera. No appreciable conjunctival injection. Psychiatric: Appropriate mood and affect. Patient is cooperative. Patient appears to have insight. Neurological Examination: Mental Status: Alert and oriented to person, time, and place. Normal speech and language without dysarthria. Concentration and attention full. Cranial Nerves: No appreciable deficit in cranial nerves II-XII. Motor: Normal tone and bulk throughout. Left upper extremity 5/5. Right upper extremity 5/5. Left lower extremity 5/5. Right lower extremity 5/5. Sensory: Sensation intact and symmetric to light touch in all four extremities. Reflexes: Reflexes 2+ and symmetric throughout. Coordination: No appreciable limb ataxia. Gait: No appreciable gait abnormality. Discussion Summary: Edwin Cook is a 69 y.o. male with a history of hyperlipidemia, GERD, [place], new diagnosis of esophageal mass, hypothyroidism, tobacco use disorder, obesity who was hospitalized with the stroke neurology service from 10/25-10/27/2024 with a TIA. He was found to have a chronic right parietal infarct, mechanism ESUS with high clinical suspicion for cardioembolic source. A cardiac event monitor was placed at discharge to screen for atrial fibrillation and EP cardiology follow up is scheduled for 01/21/2025. He started DAPT x 21 days with aspirin and plavix in addition to crestor for secondary prevention of stroke. After 21 days, he will d/c plavix and continue aspirin/statin only. Today we discussed the patient's vascular risk factors and the pathophysiology of atrial fibrillation as they relate to stroke risk. Patient has a cardiac event monitor in place and he is aware of his scheduled EP follow up to discuss results and potentially placement of a loop recorder, pending monitor results. He will follow up in stroke clinic as scheduled in May. Assessment/Plan: Diagnosis Plan 1. TIA (transient ischemic attack) - Continue secondary prevention of stroke with aspirin, statin, and plavix - Recommend BP control with goal < 130/80 - Recommend lipid management with goal LDL <70 and TG <150 - Recommend glycemic control with goal of euglycemia - Stroke signs and symptoms reviewed and to call 911 if these develop Counseling Documentation: The patient was counseled regarding diagnostic results, prognosis, risks and benefit of treatment options, risk factor reductions, instructions for management, patient and family education, impressions, and importance of compliance with treatment. Education provided was verbal counseling. Additional time was spent in care coordination including medical record review. The total time of encounter was 40 minutes. . [1] Past Medical History: Diagnosis Date Esophageal cancer ([facility]) Hypothyroidism Stroke ([facility]) 10/25/2024 [2] History reviewed. No pertinent family history. [3] Past Surgical History: Procedure Laterality Date BACK SURGERY x4 SKIN CANCER EXCISION x2 [4] Current Outpatient Medications on File Prior to Visit Medication Sig Dispense Refill armodafinil (Nuvigil) 200 MG tablet Take 1 tablet by mouth daily. aspirin 81 MG chewable tablet Chew 1 tablet daily. 90 tablet 0 buPROPion XL (Wellbutrin XL) 300 MG 24 hr tablet Take 1 tablet by mouth daily. Do not crush, chew, or split. clopidogrel (Plavix) 75 MG tablet Take 1 tablet by mouth daily for 21 days. 21 tablet 0 fenofibrate (Triglide) 160 MG tablet Take 1 tablet by mouth daily. fluticasone-salmeterol (Advair Diskus) 250-50 MCG/ACT diskus inhaler Inhale [...] 1 tablet by mouth daily. 30 tablet 0 tamsulosin (Flomax) 0.4 MG 24 hr capsule TAKE 1 CAPSULE 1 TIME EACH DAY FOR PROSTATE No current facility-administered medications on file prior to visit. [5] No Known Allergies documented in this encounter Plan of Treatment Upcoming Encounters Date Type Department Care Team (Late st Contact Info) Description 01/21/2025 9:20 AM EDT Office Visit [facility] Larry [address] [place] [address] Nissa Herzog PA [address] [place] [address] 06/10/2025 9:00 AM EST Office Visit [place] [facility] [address] [place] [address] Korey Fernandes MD [address] [place] [address] documented as of this encounter Visit Diagnoses Diagnosis TIA (transient ischemic attack)- Primary Unspecified transient cerebral ischemia documented in this encounter Additional Health Concerns Assessment Noted Time PHQ-9 Depression Total Score: 1 11/01/19 25 3:42 PM EDT A fall risk assessment has been complete d for the patient 10/31/2024 3:42 PM EDT A Body Mass Index follow-up plan has been documented for the patient 11/03/2024 7:42 AM EDT documented as of this encounter Care Teams Monomer Recovery Supervisor Relationship Specialty Start Date End Date Pcp, No [address] [place] [address] PCP - General Family Medicine 09/26/24 11/04/24 Marzena Sosa LPN [facility] TCM Nurse 10/28/24 documented as of this encounter
--- OUTSIDE RECORDS SUMMARY | 2024-11-05 14:45 | XMS_ITS | Encounter Summary ---
Author Organization Healthcare Address [address] [place] [address] Care Team Providers Care Lead Mechanical Engineer Name Role Phone Pcp, No Primary Care Provider Unavailabl e Marzena Sosa LPN Unavailable Unavailabl e Encounter Details Date Type Department Care Team (Late st Contact Info) Description 10/25/2024 Orders Only External Location [address] [place] [address] Provider, External Social History Tobacco Use Types [...] any time in the past 12 m [facility], were you homeless or living [...] EDT Office Visit [facility] [place] Larry [address] [place] [address] Nissa Herzog PA [address] [place] [address] 06/10/2025 9:00 AM EST Office Visit [place] [facility] [address], [address] [place] [address] Korey Fernadnes MD [address] [place] [address] documented as of this encounter [...] documented as of this encounter Care Teams Lead Mechanical Engineer Relationship Specialty Start [place] [address] PCP - General Family Medicine 09/26/24 11/04/24 Marzena Sosa LPN [facility] TCM Nurse 10/28/24 documented as of this encounter
--- OUTSIDE RECORDS SUMMARY | 2024-11-05 14:45 | XMS_ITS | Encounter Summary ---
Author Organization Healthcare Address [address] [place] [address] Care Team Providers Care Operations Management Trainee Name Role Phone Pcp, No Primary Care [...] Description 01/21/2025 9:20 AM EDT Office Visit [facility] [place] Larry [address] [facility] [place] [address] Nissa Herzog PA [address] [place] [address] 06/10/2025 9:00 AM EST Office Visit [place] [facility] [address], [address] [place] [address] Korey Fernandes MD [address] [place] [address] documented as of this encounter Visit Diagnoses Not on filedocumented in this encounter Additional Health Concerns Assessment Noted Time A Body Mass Index follow-up plan has been documented for the patient 10/27/2024 3:35 PM EDT documented as of this encounter Care Teams Operations Management Trainee Relationship Specialty Start Date End Date Pcp, No [address] [place] [address] PCP - General Family Medicine 09/26/24 11/04/24 documented as of this encounter
--- OUTSIDE RECORDS SUMMARY | 2024-11-05 14:45 | XMS_ITS ---
Author Organization [facility] Address [address] [place] [address] Care Team Providers Care Pump Oiler Name Role Phone Marzena Sosa LPN Unavailable Jatinder Samuel MD Primary Care Provider Samra vailable Transitional Care Management Status:Active (Active) Start date:10/28/2024 Enrollment date:10/28/2024 Enrollment reason:Identified using hospital discharge data Overview This episode type is for outpatient care managers enrolling patients in the [facility] Transitional Care Management program. Case Team Name Relationship Phone Marzena Sosa LPN(Responsible Staff) TCM Nurs e Continued Care and Services Coordination
--- OUTSIDE RECORDS SUMMARY | 2024-11-05 14:45 | XMS_ITS | Encounter Summary ---
Author Organization Healthcare Address [address] [place] [address] Care Team Providers Care Winding Rack Operator Name Role Phone [facility] LPN [facility] Jatinder Clifford MD Primary Care Provider Samra vailable Reason for Visit * Reason Comments Follow-up Encounter Details Date Type Department Care Team (Late st Contact Info) Description 11/05/2024 Patient Outreach [facility] [address], [address] [place] [address] Marzena Ssoa, [facility] Follow-up Social History Tobacco Use Types Packs/Day Years Used Date Smoking Tobacco: Former Cigarettes 3 33 1 167 - 2000 Passive Smoke Exposure: Past Alcohol [...] any time in the past 12 m [facility], were you homeless or [...] Progress Notes - Marzena Sosa LPN - 11/05/2024 2:23 PM EDT 11/05/2024 TCM Follow-up Call Patient reached: Yes Outcome: Called patient for a follow up TCM nurse call. Patient reports he is doing pretty good. Reports he has had no effects from the stroke.patient has no questions or concerns for this nurse at this time. Action: PCP updated in chart documented in this encounter Plan of Treatment Upcoming Encounters Date Type Department Care Team (Late st Contact Info) Description 01/21/2025 9:20 AM EDT Office Visit [facility] [place] Larry [address] [place] [address] Nissa Herzog PA [address] [place] [address] 06/10/2025 9:00 AM EST Office Visit [place] [facility] [address], [address] [place] [address] Korey Fernandes MD [address] [place] [address] documented as of this encounter [...] documented as of this encounter Care Teams Winding Rack Operator Relationship Specialty Start Date End Date Jatinder Clifford MD PCP - General Family Medicine 11/05/24 Marzena Sosa LPN [facility] TCM Nurse 10/28/24 documented as of this encounter
--- OUTSIDE RECORDS SUMMARY | 2024-11-05 14:45 | XMS_ITS | Encounter Summary ---
Author Organization Healthcare Address [address] [place] [address] Care Team Providers Care Soda Fountain Clerk Name Role Phone Pcp, No Primary Care Provider Unavailabl e Marzena Sosa LPN Unavailable Unavailabl e Reason for Visit * Reason Comments TCM Call Encounter Details Date Type Department Care Team (Late st Contact Info) Description 10/28/2024 Patient Outreach [facility] [address] [place] [address] Marzena Sosa, [facility] TCM Call Social History Tobacco Use Types [...] any time in the past 12 m [facility], were you homeless or living in a nursing home (including now)? No 10/28/2024 Utilities Answer [...] Description 01/21/2025 9:20 AM EDT Office Visit [facility] [place] Larry [address] [place] [address] Nissa Herzog PA [address] [place] [address] 06/10/2025 9:00 AM EST Office Visit [place] [facility] [address], [address] [place] [address] Korey Fernandes MD [address] [place] [address] documented as of this encounter Visit Diagnoses Not on filedocumented in this encounter Additional Health Concerns Assessment Noted Time A Body Mass Index follow-up plan has been documented for the patient 10/27/2024 3:35 PM EDT documented as of this encounter Care Teams Soda Fountain Clerk Relationship Specialty Start Date End Date Pcp, No [address] [place] [address] PCP - General Family Medicine 09/26/24 11/04/24 Marzena Sosa LPN [facility] TCM Nurse 10/28/24 documented as of this encounter
--- OUTSIDE RECORDS SUMMARY | 2024-11-05 14:45 | XMS_ITS | Encounter Summary ---
Author Organization Healthcare Address [address] [place] [address] Care Team Providers Care Telecommunications Network Engineer Name Role Phone Pcp, No Primary [...] Description 01/21/2025 9:20 AM EDT Office Visit [facility] [place] Larry [address] [facility] [place] [address] Nissa Herzog PA [address] [place] [address] 06/10/2025 9:00 AM EST Office Visit [place] [facility] [address], [address]st [place] [address] Korey Fernandes MD [address] [place] [address] documented as of this encounter Visit Diagnoses Not on filedocumented in this encounter Additional Health Concerns Assessment Noted Time A Body Mass Index follow-up plan has been documented for the patient 10/27/2024 3:35 PM EDT documented as of this encounter Care Teams Telecommunications Network Engineer Relationship Specialty Start Date End Date Pcp, No [address] [place] [address] PCP - General Family Medicine 09/26/24 11/04/24 documented as of this encounter
--- OUTSIDE RECORDS SUMMARY | 2024-11-05 14:46 | XMS_ITS | Encounter Summary ---
Author Organization Healthcare Address [address] [place] [address] Care Team Providers Care Sociology Faculty Member Name Role Phone Pcp, No Primary Care [...] any time in the past 12 m [facility], were you homeless or living in [...] Description 01/21/2025 9:20 AM EDT Office Visit [facility] [place] Larry [address] [facility] [place] [address] Nissa Herzog PA [address] [place] [address] 06/10/2025 9:00 AM EST Office Visit [place] [facility] [address], [address] [place] [address] Korey Fernandes MD [address] [place] [address] documented as of this encounter [...] documented as of this encounter Care Teams Sociology Faculty Member Relationship Specialty Start Date End Date Pcp, Nae [address] [place] [address] PCP - General Family Medicine 09/26/24 11/04/24 Marzena Sosa LPN [facility] TCM Nurse 10/28/24 documented as of this encounter
--- OUTSIDE RECORDS SUMMARY | 2024-11-05 14:46 | XMS_ITS | Encounter Summary ---
Author Organization Healthcare Address [address] [place] [address] Care Team Providers Care Pool Technician Name Role Phone Pcp, No Primary Care Provider Unavailabl e Marzena Sosa LPN Unavailable Unavailabl e Encounter Details Date Type Department Care Team (Late st Contact Info) Description 10/29/2024 Telephone [facility] Inpatient [address] [place] [address] Franklyn Jenkins Jr. RN NEUROSCIENCE SERVICES ADMIN [...] time in the past 12 m [facility], were you homeless or living in a longterm (including now)? No 10/28/2024 Utilities Answer Date [...] Jr. SHARMIN Key, RN Neuroscience Nurse Navigator [phone] (office) [facility] documented in this encounter Plan of Treatment Upcoming Encounters Date Type Department Care Team (Late st Contact Info) Description 01/21/2025 9:20 AM EDT Office Visit [facility] [place] Larry [address] [place] [address] Nissa Herzog PA [address] [place] [address] 06/10/2025 9:00 AM EST Office Visit [place] [facility] [address], [address] [place] [address] Korey Fernandes MD [address] [place] [address] documented as of this encounter Visit Diagnoses Not on filedocumented in this encounter Additional Health Concerns Assessment Noted Time A Body Mass Index follow-up plan has been documented for the patient 10/27/2024 3:35 PM EDT documented as of this encounter Care Teams Pool Technician Relationship Specialty Start Date End Date Pcp, No [address] [place] [address] PCP - General Family Medicine 09/26/24 11/04/24 Marzena Sosa LPN [facility] TCM Nurse 10/28/24 documented as of this encounter
--- OUTSIDE RECORDS SUMMARY | 2024-11-05 14:46 | XMS_ITS | Encounter Summary ---
Author Organization Healthcare Address [address] [place] [address] Care Team Providers Care Smoking Pipe Maker Name Role Phone Pcp, No Primary Care Provider UnavailMarzena Elliott LPN Unavailable Jatinder Samuel MD Primary Care Provider Samra vailable Encounter Details Date Type Department Care Team (Late st Contact Info) Description 10/27/2024 Lab Requisition [facility] [address] [place] [address] Preet Gay MD [address] [facility] [address] [place] [address] Encounter for general adult medical examination without [...] Description 01/21/2025 9:20 AM EDT Office Visit [facility] [place] Larry [address] [place] [address] Nissa Herzog PA [address] [place] [address] 06/10/2025 9:00 AM EST Office Visit [place] [facility] [address], [address] [place] [address] Korey Fernandes MD [address] [place] [address] documented as of this encounter Procedures Procedure Name Priority Date/Time Associated Diagnosis Comments MULTI DRUG RESISTANCE TEST Routine 10/27/2024 11:57 AM EDT Encounter for general adult medical examination without abnormal findings documented in this encounter Results * Multi Drug Resistance Test (10/27/2024 11:57 AM EDT) Culture No growth at day 1 10/28/2024 1:54 PM EDT [facility] Swab (Nares and Catie Rectal) 10/27/2024 11:57 AM EDT 10/27/2024 12:58 PM EDT Narrative [facility] - 10/28/2024 1:54 PM EDT This test was developed and its performance characteristics determined by the [facility]. Although the media is FDA-approved, it is not FDA-approved for all specimen types submitted. The FDA has determined that such clearance or approval is not necessary. This test is used for surveillance purposes. It should not be regarded as investigational or for research. The [facility] is certified under the Clinical Laboratory Improvement Amendments of 1988 (CLIA-88) as qualified to perform high complexity clinical laboratory testing. us Preet Gay MD LAB MICROBIOLOGY - GEN ERAL ORDERABLES Final Result [facility] [address] [place] [address] documented in this encounter Visit Diagnoses Diagnosis Encounter for general adult medical examination without abnormal findings documented in this encounter Additional Health Concerns Assessment Noted Time A Body Mass Index follow-up plan has been documented for the patient 10/27/2024 3:35 PM EDT documented as of this encounter Care Teams Smoking Pipe Maker Relationship Specialty Start Date End Date Pcp, No [address] [place] [id number] PCP - General Family Medicine 09/26/24 11/04/24 Jatinder Clifford MD PCP - General Family Medicine 11/05/24 Marzena Sosa LPN [facility] TCM Nurse 10/28/24 documented as of this encounter
--- OUTSIDE RECORDS SUMMARY | 2024-11-05 14:46 | XMS_ITS | Encounter Summary ---
Author Organization Healthcare Address [address] [place] [address] Care Team Providers Care Steel Cutter Name Role Phone Pcp, No Primary Care [...] the past 12 months has th e [employer], gas, oil, or water [employer] threatened to shut off services in your [...] Description 01/21/2025 9:20 AM EDT Office Visit [facility] [place] Larry [address] [place] [address] Nissa Herzog PA [address] [place] [address] 06/10/2025 9:00 AM EST Office Visit [place] [facility] [address], [address] [place] [address] Korey Fernandes MD [address] [place] [address] documented as of this encounter Visit Diagnoses Not on filedocumented in this encounter Additional Health Concerns Assessment Noted Time A Body Mass Index follow-up plan has been documented for the patient 10/27/2024 3:35 PM EDT documented as of this encounter Care Teams Steel Cutter Relationship Specialty Start Date End Date Pcp, [place] [address] PCP - General Family Medicine 09/26/24 11/04/24 documented as of this encounter
--- OUTSIDE RECORDS SUMMARY | 2024-11-05 14:46 | XMS_ITS | Clinical Summary ---
Author Organization Healthcare Address [address] [place] [address] Care Team Providers Care Golf Course Designer Name Role Phone Marzena Sosa LPN Unavailable Jatinder Samuel MD Primary Care Provider Samra vailable Allergies No known active allergies Medications armodafinil [...] Repeat CT scan of head pending LKN 219910/24/22 No thrombectomy SBP less than 220 Sodium [...] care Tube feeding per nutritional recommendations via [facility] consult as indicated\ Hypothyroid 10/25/2024 Overview (10/25/2024): TSH 48.20 Unknown home med dose Resume home medications as appropriate T4 pending Encounters Date Type Department Care Team Description 11/05/2024 Patient Outreach [facility] [address] [facility], [address] [place] [address] Marzena Sosa, CHON Follow-up 10/31/2024 3:30 PM EDT Office Visit [place] [facility] [address], [address] [place] [address] Sofia Dillard PA TIA (transient ischemic attack) (Primary Dx) 10/31/2024 Travel 10/29/2024 Telephone [facility] [address] [place] [address] Franklyn Jenkins Jr., RN 10/28/2024 Patient Outreach [address]ia [address], [address] [place] [address] Marzena Sosa, CHON TCM Call 10/27/2024 Lab Requisition [facility] [address] [place] [id number] Preet Gay MD Encounter for general adult medical examination without abnormal findings 10/27/2024 Travel 10/26/2024 Travel 10/25/2024 5:36 PM EDT - 10/27/2024 5:21 PM EDT Hospital Encounter [facility] [address] [place] [phone] Scott Rankin MD Rasheed, Izad-Yar D, MD Lee, Jessica D, MD Cerebrovascular accident (CVA), unspecified mechanism (CMS/HCC) (Primary Dx); Aphasia Discharge Disposition: Home or Self Care 10/25/2024 Orders Only External Location [address] [place] [id number] Provider, External 10/25/2024 Travel from Last 3 Months Social History Tobacco Use Types Packs/Day Years Used Date Smoking Tobacco: Former Cigarettes 3 33 1 967 - 1999 Passive Smoke Exposure: Past Tobacco Cessation:Counseling Given: [...] any time in the past 12 m [facility], were you homeless or living in a residential (including now)? No 10/28/2024 Utilities Answer Date Recorded In the past 12 months has e Cover, oil, or water [employer] threatened to shut off services in your [...] Description 01/21/2025 9:20 AM EDT Office Visit [facility] [address] [place] [address] Nissa Herzog PA [address] [place] [address] 06/10/2025 9:00 AM EST Office Visit [place] [facility] [address] [place] [address] Korey Fernandes MD [address] [place] [address] Health Maintenance Due Date Last Done Comments [facility] Annual Wellness (AWV) 1955 [facility]-Infant/Child/Adol SDOH Screenings 1955 TXB-LAUVN-60 Vaccine (#1) 1959 [facility]-DTaP,Tdap,and Td Vaccine s [...] HOUR, PLASMA Timed 10/25/2024 10:54 PM EDT [facility], E/M 30-74 MINUTES Routine 10/25/2024 [...] at day 1 10/28/2024 1:54 PM EDT [facility] Swab (Nares and Catie Rectal) 10/27/2024 11:57 AM EDT 10/27/2024 12:58 PM EDT Narrative [facility] - 10/28/2024 1:54 PM EDT This test was developed and its performance characteristics determined by the [facility]. Although the media is FDA-approved, it is not FDA-approved for all specimen types submitted. The FDA has determined that such clearance or approval is not necessary. This test is used for surveillance purposes. It should not be regarded as investigational or for research. The [facility] is certified under the Clinical Laboratory Improvement Amendments of 1988 (CLIA-88) as qualified to perform high complexity clinical laboratory testing. Preet Gay MD LAB MICROBIOLOGY - GEN ERAL ORDERABLES Final Result [facility] [address] [place] [address] * ECHO, ADULT TRANSTHORACIC COMPLETE (10/27/2024 11:05 AM EDT) BSA 2.41 m2 ANGIE ISCV Height 183.0 [...] Root Diam 35 mm ANGIE ISCV PA WA(ACCEL) 16.4 mmHg ANGIE ISCV LVLs ap2 6.4 [...] is no recent study available for direct btvm-ik-cdmx comparison. Left Ventricle The left ventricle is [...] is no recent study available for direct [id number]-[id number] comparison. Everett Zhang APRN CV ECHO PROCEDURES Final Result * Sodium, Plasma (10/27/2024 6:53 AM EDT) Only the most recent of6 resultswithin the time period is included. Sodium, Plasma 138 136 - 145 mmol/L 10/27/2024 7:20 AM EDT [facility] Blood Venous blood specimen / Unknown Venipuncture / Unknown 10/27/2024 6:53 AM EDT 10/27/2024 6:56 AM EDT Everett Dickersno Leatha BAJWA LAB BLOOD ORDERABLES Elena l Result Performing Organization Address [facility] Co de Phone Number [facility] [address] [place] [address] * (ABNORMAL) Ionized calcium, whole blood (10/27/2024 12:53 AM EDT) Only the most recent of3 resultswithin the time period is included. Pathologist [facility] Ionized Calcium, Whole Blood 4.0(L) 4.6 - 5.1 mg/dL LAB HEMATOLOGY METHOD 10/27/2024 12:58 AM EDT [facility] Blood Venous blood specimen / Unknown Venipuncture / Unknown 10/27/2024 12:53 AM EDT 10/27/2024 12:57 AM EDT Everett Zhang APRN LAB BLOOD ORDERABLES Elena l Result Performing Organization Address [facility] Co de Phone Number [facility] [address] [place] [address] * CBC W/O Differential (10/27/2024 12:53 AM EDT) Only the most recent of2 resultswithin the time period is included. WBC Count 8.68 3.70 - 10.30 10*3/uL LAB HEMATOLOGY METHOD 10/27/2024 1:05 AM EDT [facility] RBC Count 4.85 4.60 - 6.10 10*6/uL LAB HEMATOLOGY METHOD 10/27/2024 1:05 AM EDT [facility] HGB 14.0 13.7 - 17.5 g/dL LAB HEMATOLOGY METHOD 10/27/2024 1:05 AM EDT [facility] HCT 42.9 40.0 - 51.0 % LAB HEMATOLOGY METHOD 10/27/2024 1:05 AM EDT [facility] Platelet Count 194 155 - 369 10*3/uL LAB HEMATOLOGY METHOD 10/27/2024 1:05 AM EDT [facility] MCV 89 79 - 98 fL LAB HEMATOLOGY METHOD 10/27/2024 1:05 AM EDT [facility] MCH 28.9 26.0 - 32.0 pg LAB HEMATOLOGY METHOD 10/27/2024 1:05 AM EDT [facility] MCHC 32.6 30.7 - 35.5 g/dL LAB HEMATOLOGY METHOD 10/27/2024 1:05 AM EDT [facility] RDW 13.2 11.5 - 14.5 % LAB HEMATOLOGY METHOD 10/27/2024 1:05 AM EDT [facility] MPV 10.4 8.8 - 12.5 fL LAB HEMATOLOGY METHOD 10/27/2024 1:05 AM EDT [facility] nRBC 0.0 <=0.0 per 100 WBCs LAB HEMATOLOGY METHOD 10/27/2024 1:05 AM EDT [facility] Blood Venous blood specimen / Unknown Venipuncture / Unknown 10/27/2024 12:53 AM EDT 10/27/2024 12:57 AM EDT Everett Zhang APRN LAB BLOOD ORDERABLES Elena l Result [facility] [address] [place] [address] * Phosphorus, Plasma (10/27/2024 12:53 AM EDT) Only the most recent of3 resultswithin the time period is included. Phosphorus, Plasma 3.4 2.5 - 4.5 mg/dL 10/27/2024 1:27 AM EDT [facility] Blood Venous blood specimen / Unknown Venipuncture / Unknown 10/27/2024 12:53 AM EDT 10/27/2024 12:57 AM EDT Zhanzuo Leatha WARRENN LAB BLOOD ORDERABLES Elena l Result [facility] [address] [place] [address] * Magnesium, Plasma (10/27/2024 12:53 AM EDT) Only the most recent of3 resultswithin the time period is included. Magnesium, Plasma 2.3 1.9 - 2.4 mg/dL 10/27/2024 1:27 AM EDT [facility] Blood Venous blood specimen / Unknown Venipuncture / Unknown 10/27/2024 12:53 AM EDT 10/27/2024 12:57 AM EDT Everett Tuan Dannaspen [employer]KING [employer] LAB BLOOD ORDERABLES Elena hunter Result [facility] [address] [place] [address] * (ABNORMAL) Basic Metabolic Panel, Plasma (10/27/2024 12:53 AM EDT) Only the most recent of4 resultswithin the time period is included. Glucose, Plasma 91 74 - 99 mg/dL 10/27/2024 1:27 AM EDT [facility] BUN, Plasma 11 8 - 23 mg/dL 10/27/2024 1:27 AM EDT [facility] Creatinine, Plasma 1.02 0.70 - 1.20 mg/dL 10/27/2024 1:27 AM EDT [facility] BUN/Creatinine Ratio 11 10/27/2024 1:27 AM EDT [facility] Sodium, Plasma 139 136 - 145 mmol/L 10/27/2024 1:27 AM EDT [facility] Potassium, Plasma 3.8 3.6 - 4.9 mmol/L 10/27/2024 1:27 AM EDT [facility] Chloride, Plasma 104 97 - 107 mmol/L 10/27/2024 1:27 AM EDT [facility] CO2, Plasma 25 22 - 29 mmol/L 10/27/2024 1:27 AM EDT [facility] Anion Gap 10 6 - 16 mmol/L 10/27/2024 1:27 AM EDT [facility] Total Calcium, Plasma 8.6(L) 8.9 - 10.2 mg/dL 10/27/2024 1:27 AM EDT [facility] eGFRcr 79.1 mL/min/1.7 3m*2 10/27/2024 1:27 AM EDT [facility] Comment:Reported eGFRcr in m L/min/1.73m2 is based the CKD-EPI 2020 equation that does not use a race coefficient. Blood Venous blood specimen / Unknown Venipuncture / Unknown 10/27/2024 12:53 AM EDT 10/27/2024 12:57 AM EDT Everett Zhang GARETT LAB BLOOD ORDERABLES Elena hunter Result [facility] [address] [place] [address] * MR Head wo IV Contrast (10/26/2024 [...] MD on 10/26/2024 7:53 AM Everett Zhang SMOKING TOBAC[employer] PACKER HAND IMG XR PROCEDURES Final R esult * [...] MD IMG CT PROCEDURES Final Result * Dalia auris Surveillance by PCR (10/26/2024 3:43 AM EDT) Dalia auris PCR Result Not Detected Not Detected 10/26/2024 10:36 AM EDT [facility] Swab (Axilla and Groin) Non-blood Collection / Unknown 10/26/2024 3:43 AM EDT 10/26/2024 4:17 AM EDT Narrative [facility] - 10/26/2024 10:36 AM EDT This PCR assay was developed and its performance characteristics determined by [facility] as appropriate for clinical purposes. This assay has not been cleared or approved by the FDA, but is performed in a CLIA regulated laboratory that is qualified to perform high-complexity testing. Demetrius Brown MD LAB MICROBIOLOGY - GENERAL ORDERABLES Final Result Performing Organization Address City/[facility]/ZIP Co de Phone Number [facility] [address] [place] [address] * (ABNORMAL) T3 (10/26/2024 3:43 AM EDT) T3, Serum 67(L) 87 - 187 ng/dL 10/26/2024 4:46 AM EDT [facility] Blood Venous blood specimen / Unknown Venipuncture / Unknown 10/26/2024 3:43 AM EDT 10/26/2024 3:48 AM EDT Result [facility] Charly Marie MD LAB BLOOD ORDERABLES Final Resul t Performing Organization Address [facility] Co de Phone Number [facility] [address] [place] [address] * Troponin T, High Sensitivity, 2 Hour, Plasma (10/25/2024 10:54 PM EDT) Only the most recent of2 resultswithin the time period is included. Pathologist [facility] Troponin T, High Sensitivity, 2 Hour 13 <19 ng/L 10/25/2024 11:29 PM EDT [facility] Blood Venous blood specimen / Unknown Venipuncture / Unknown 10/25/2024 10:54 PM EDT 10/25/2024 11:00 PM EDT Demetrius Brown MD LAB BLOOD ORDERABLES Final Result Performing Organization Address City/[facility]/ZIP Co de Phone Number [facility] [address] [place] [address] * [facility], E/M 30-74 MINUTES (10/25/2024 8:54 [...] 16 <19 ng/L 10/25/2024 9:03 PM EDT [facility] Blood Venous blood specimen / Unknown Venipuncture / Unknown 10/25/2024 8:11 PM EDT 10/25/2024 8:20 PM EDT Demetrius Brown MD LAB BLOOD ORDERABLES Final Result Performing Organization Address [facility]/State/ZIP Co de Phone Number [facility] [address] [place] [address] * APTT (10/25/2024 8:11 PM EDT) Only the most recent of2 resultswithin the time period is included. aPTT 26 25 - 35 sec LAB COAGULATION METHOD 10/25/2024 8:56 PM EDT [facility] Blood Venous blood specimen / Unknown Venipuncture / Unknown 10/25/2024 8:11 PM EDT 10/25/2024 8:20 PM EDT Demetrius Brown MD LAB BLOOD ORDERABLES Final Result Performing Organization Address City/[facility]/ZIP Co de Phone Number [facility] [address] [place] [address] * Protime-INR (10/25/2024 8:11 PM EDT) Only the most recent of2 resultswithin the time period is included. Prothrombin Time 14.0 12.0 - 14.3 sec LAB COAGULATION METHOD 10/25/2024 8:56 PM EDT [facility] INR 1.1 0.9 - 1.1 LAB COAGULATION METHOD 10/25/2024 8:56 PM EDT [facility] Blood Venous blood specimen / Unknown Venipuncture / Unknown 10/25/2024 8:11 PM EDT 10/25/2024 8:20 PM EDT Narrative [facility] - 10/25/2024 8:56 PM EDT OPTIMAL INR RANGES FOR PATIENT ON ORAL ANTICOAGULANT THERAPY Prevention of venous thromboembolism INR 2.0 to 3.0 In patients with heart disease: Atrial fibrillation INR 2.0 to 3.0 Valvular heart disease INR 2.0 to 3.0 Tissue heart valves INR 2.0 to 3.0 Mechanical prosthetic valves INR 2.5 to 3.5 Prevention of recurrent AK INR 2.5 to 3.5 Demetrius Brown MD LAB BLOOD ORDERABLES Final Result Performing Organization Address [facility] Co de Phone Number [facility] [address] [place] [address] * (ABNORMAL) CBC and differential (10/25/2024 8:11 PM EDT) Only the most recent of2 resultswithin the time period is included. WBC Count 12.09(H) 3.70 - 10.30 10*3/uL LAB HEMATOLOGY METHOD 10/25/2024 8:32 PM EDT [facility] RBC Count 5.13 4.60 - 6.10 10*6/uL LAB HEMATOLOGY METHOD 10/25/2024 8:32 PM EDT [facility] HGB 15.1 13.7 - 17.5 g/dL LAB HEMATOLOGY METHOD 10/25/2024 8:32 PM EDT [facility] HCT 44.7 40.0 - 51.0 % LAB HEMATOLOGY METHOD 10/25/2024 8:32 PM EDT [facility] Platelet Count 222 155 - 369 10*3/uL LAB HEMATOLOGY METHOD 10/25/2024 8:32 PM EDT [facility] MCV 87 79 - 98 fL LAB HEMATOLOGY METHOD 10/25/2024 8:32 PM EDT [facility] MCH 29.4 26.0 - 32.0 pg LAB HEMATOLOGY METHOD 10/25/2024 8:32 PM EDT [facility] MCHC 33.8 30.7 - 35.5 g/dL LAB HEMATOLOGY METHOD 10/25/2024 8:32 PM EDT [facility] RDW 12.6 11.5 - 14.5 % LAB HEMATOLOGY METHOD 10/25/2024 8:32 PM EDT [facility] MPV 10.4 8.8 - 12.5 fL LAB HEMATOLOGY METHOD 10/25/2024 8:32 PM EDT [facility] nRBC 0.0 <=0.0 per 100 WBCs LAB HEMATOLOGY METHOD 10/25/2024 8:32 PM EDT [facility] Differential Type Automated LAB HEMATOLOGY METHOD 10/25/2024 8:32 PM EDT [facility] Neutrophils % 87 % LAB HEMATOLOGY METHOD 10/25/2024 8:32 PM EDT [facility] Lymphocytes % 9 % LAB HEMATOLOGY METHOD 10/25/2024 8:32 PM EDT [facility] Monocytes % 4 % LAB HEMATOLOGY METHOD 10/25/2024 8:32 PM EDT [facility] Eosinophils % 0 % LAB HEMATOLOGY METHOD 10/25/2024 8:32 PM EDT [facility] Basophils % 0 % LAB HEMATOLOGY METHOD 10/25/2024 8:32 PM EDT [facility] Immature Granulocytes % 0 % LAB HEMATOLOGY METHOD 10/25/2024 8:32 PM EDT [facility] Neutrophils Absolute 10.40(H) 1.60 - 6.10 10*3/uL LAB HEMATOLOGY METHOD 10/25/2024 8:32 PM EDT [facility] Lymphocytes Absolute 1.08(L) 1.20 - 3.90 10*3/uL LAB HEMATOLOGY METHOD 10/25/2024 8:32 PM EDT [facility] Monocytes Absolute 0.50 0.30 - 0.90 10*3/uL LAB HEMATOLOGY METHOD 10/25/2024 8:32 PM EDT [facility] Eosinophils Absolute 0.02 0.00 - 0.50 10*3/uL LAB HEMATOLOGY METHOD 10/25/2024 8:32 PM EDT [facility] Basophils Absolute 0.04 0.00 - 0.10 10*3/uL LAB HEMATOLOGY METHOD 10/25/2024 8:32 PM EDT [facility] Immature Granulocytes Absolute 0.05 0.00 - 0.06 10*3/uL LAB HEMATOLOGY METHOD 10/25/2024 8:32 PM EDT [facility] Blood Venous blood specimen / Unknown Venipuncture / Unknown 10/25/2024 8:11 PM EDT 10/25/2024 8:20 PM EDT Narrative [facility] - 10/25/2024 8:32 PM EDT Therapeutic decision making should be based on absolute values, rather than percentages. Demetrius Brown MD LAB BLOOD ORDERABLES Final Result [facility] [address] [place] [address] * Type and Screen (10/25/2024 8:11 PM [...] ORDERA BLES Final Result Performing Organization Address City/[facility]/ZIP Co de Phone Number BLOOD BANK [address] [place] [address], [place] * T4, free (10/25/2024 8:11 PM EDT) [facility] Free T4, Plasma 1.0 0.8 - 1.7 ng/dL 10/25/2024 9:02 PM EDT [facility] Blood Venous blood specimen / Unknown Venipuncture / Unknown 10/25/2024 8:11 PM EDT 10/25/2024 8:20 PM EDT us Sundar Ortiz MD LAB BLOOD ORDERABLES Final Re sult [facility] [address] [place] [address] * (ABNORMAL) POCT glucose meter (10/25/2024 8:02 PM EDT) Only the most recent of2 resultswithin the time period is included. [facility] POCT Glucose 138(H) 74 - 99 mg/dL 10/25/2024 8:04 PM EDT [facility] Comment:Accuracy of a glucos e [...] for testing. Comment 10/25/2024 8:04 PM EDT [facility] Testing Machine Operator ID [place], Aaliyah 10/25/2024 8:04 PM EDT [facility] Device ID [id number] 10/25/2024 8:04 PM EDT [facility]ALTH[facility] Specimen Type POC Capillary 10/25/2024 8:04 PM EDT [facility] Blood Capillary blood specimen / Unknown 10/25/2024 8:02 PM EDT 10/25/2024 8:04 PM EDT us Demetrius Brown MD LAB POINT OF CARE TEST DOCKED DEVICE UNSOLICITED RESULTS Final Result Performing Organization Address City/[facility]/ZIP Co de Phone Number [facility] [address] [place] [address] * (ABNORMAL) Lipid panel (10/25/2024 7:03 PM EDT) Cholesterol, Plasma 178 <200 mg/dL 10/25/2024 7:51 PM EDT [facility] Comment: Cholesterol Reference Range (age >17 years): Desirable <200 mg/dL Borderline 200 to 239 mg/dL Undesirable >239 mg/dL HDL 36(L) >=40 mg/dL 10/25/2024 7:51 PM EDT [facility] Comment: HDL Cholesterol Reference Ranges (age >17 years): Female, acceptable > or = 50 mg/dL Male, acceptable > or = 40 mg/dL Triglycerides, Plasma 148 <150 mg/dL 10/25/2024 7:51 PM EDT [facility] Comment: Triglyceride Reference Range (age >17 years): Desirable: <150 mg/dL Borderline high: 150 to 199 mg/dL High: 200 to 499 mg/dL Very high: >499 mg/dL Increased risk of pancreatitis: >1000 mg/dL Cholesterol/HDL Ratio 5 10/25/2024 7:51 PM EDT [facility] LDL, Calculated 115(H) <100 mg/dL 7:51 PM EDT [facility] Comment: LDL Cholesterol Reference Range [...] 12 hours? Unknown 10/25/2024 7:51 PM EDT [facility] Blood Venous blood specimen / Unknown Venipuncture / Unknown 10/25/2024 7:03 PM EDT 10/25/2024 7:07 PM EDT us Demetrius Brown MD LAB BLOOD ORDERABLES Final Result [facility] [address] [place] [address] * (ABNORMAL) TSH (10/25/2024 6:40 PM EDT) Thyroid Stimulating Hormone, Plasma 48.20(H) 0.40 - 4.20 uIU/mL 10/25/2024 7:26 PM EDT [facility] Blood Venous blood specimen / Unknown Venipuncture / Unknown 10/25/2024 6:40 PM EDT 10/25/2024 6:42 PM EDT Demetrius Brown MD LAB BLOOD ORDERABLES Final Result [facility] [address] [place] [address] * ECG Adult (10/25/2024 6:34 PM EDT) Pathologist [facility] EKG DIAGNOSIS CLASS Abnormal MUSE ECG Ventricular Rate 64 BPM MUSE ECG Atrial Rate 64 BPM MUSE ECG WA Interval 300 ms MUSE ECG QRSD Interval 94 ms MUSE ECG QT Interval 438 ms MUSE ECG QTC Interval 451 ms MUSE ECG P [place] 49 degrees MUSE ECG R [place] 202 degrees MUSE ECG T Wave [place] 9 degrees MUSE ECG Diagnosis Sinus rhythm with 1st degree AV block MUSE ECG Diagnosis Abnormal ECG MUSE ECG Diagnosis MUSE ECG Diagnosis Confirmed by Yves Harris ([id number]) on 10/26/2024 11:25:24 AM MUSE ECG 10/25/2024 6:34 PM EDT 10/26/2024 11:25 AM EDT Scott Rankin MD ECG ORDERABLES Final R esult MUSE ECG * ED HIV 1/2 Antibody/Antigen Screen w/Reflex to HIV 1/2 Differentiation (10/25/2024 6:02 PM EDT) Pathologist [facility] HIV 1 & 2 Antibody/Antigen Screen Non Reactive Non Reactive 10/25/2024 6:54 PM EDT [facility] Comment:Screening for HIV 1 & 2 antibodies, and P24 antigen is NONREACTIVE. No confirmatory testing is required. Blood Venous blood specimen / Unknown Venipuncture / Unknown 10/25/2024 6:02 PM EDT 10/25/2024 6:14 PM EDT Scott Rankin MD LAB BLOOD ORDERABLES Fi nal Result [facility] [address] [place] [address] * Hepatitis C Antibody - ED (10/25/2024 6:02 PM EDT) Hepatitis C Antibody Negative Negative 10/25/2024 7:44 PM EDT [facility] Blood Venous blood specimen / Unknown Venipuncture / Unknown 10/25/2024 6:02 PM EDT 10/25/2024 6:14 PM EDT Scott Rankin MD LAB BLOOD ORDERABLES Fi nal Result Performing Organization Address [facility] [place] [address] * Anti Xa Level Unfractionated Heparin (10/25/2024 6:02 PM EDT) Pathologist [facility] Anti Xa Level Unfractionated Heparin <0.11 <1.00 IU/mL 10/25/2024 6:26 PM EDT [facility] Blood Venous blood specimen / Unknown Venipuncture / Unknown 10/25/2024 6:02 PM EDT 10/25/2024 6:10 PM EDT Narrative [facility] - 10/25/2024 6:26 PM EDT Therapeutic Range: UFH Full Dose and ACS/AK protocols*: 0.30 - 0.70 IU/mL UFH Low Dose protocol*: 0.25 - 0.50 IU/mL UFH prophylaxis: Not established Scott Rankin MD LAB BLOOD ORDERABLES Fi nal Result Performing Organization Address City/[facility]/[place] [address] * Hemoglobin A1c (10/25/2024 6:02 PM EDT) Hemoglobin A1c 5.6 <5.7 % 10/26/2024 11:41 AM EDT [facility] Blood Venous blood specimen / Unknown Venipuncture / Unknown 10/25/2024 6:02 PM EDT 10/25/2024 6:10 PM EDT Narrative [facility] - 10/26/2024 11:41 AM EDT HA1C Interpretive Data: Diagnosis of Diabetes: Diabetic > or = 6.5% Pre-diabetic 5.7 to 6.4% Non-diabetic < or = 5.6% Glycemic Targets for Type I and Type II Diabetics: Non- Adults <7.0% Adults <6.0% Children and Adolescents <7.5% Source: [place] [employer]. Standards of medical care in diabetes,2017. Diabetes Care.2017:40 (suppl 1):S1-S135. us Demetrius Brown MD LAB BLOOD ORDERABLES Final Result [facility] [address] [place] [address] * (ABNORMAL) Comprehensive Metabolic Panel (10/25/2024 6:02 PM EDT) Glucose, Plasma 133(H) 74 - 99 mg/dL 10/25/2024 6:33 PM EDT [facility] BUN, Plasma 8 8 - 23 mg/dL 10/25/2024 6:33 PM EDT [facility] Creatinine, Plasma 0.94 0.70 - 1.20 mg/dL 10/25/2024 6:33 PM EDT [facility] BUN/Creatinine Ratio 9 10/25/2024 6:33 PM EDT [facility] Sodium, Plasma 131(L) 136 - 145 mmol/L 10/25/2024 6:33 PM EDT [facility] Potassium, Plasma 3.5(L) 3.6 - 4.9 mmol/L 10/25/2024 6:33 PM EDT [facility] Chloride, Plasma 97 97 - 107 mmol/L 10/25/2024 6:33 PM EDT [facility] CO2, Plasma 21(L) 22 - 29 mmol/L 10/25/2024 6:33 PM EDT [facility] Anion Gap 13 6 - 16 mmol/L 10/25/2024 6:33 PM EDT [facility] Total Calcium, Plasma 8.6(L) 8.9 - 10.2 mg/dL 10/25/2024 6:33 PM EDT [facility] Total Protein 7.5 6.3 - 7.9 g/dL 10/25/2024 6:33 PM EDT [facility] Albumin, Plasma 4.2 3.5 - 5.2 g/dL 10/25/2024 6:33 PM EDT [facility] AST, Plasma 21 10 - 50 U/L 10/25/2024 6:33 PM EDT [facility] ALT, Plasma 21 10 - 50 U/L 10/25/2024 6:33 PM EDT [facility] Alkaline Phosphatase, Plasma 75 40 - 115 U/L 10/25/2024 6:33 PM EDT [facility] Total Bilirubin, Plasma 0.9 0.2 - 1.1 mg/dL 10/25/2024 6:33 PM EDT [facility] eGFRcr 87.2 mL/min/1.7 3m*2 10/25/2024 6:33 PM EDT [facility] Comment:Reported eGFRcr in m L/min/1.73m2 is based the CKD-EPI 2020 equation that does not use a race coefficient. Blood Venous blood specimen / Unknown Venipuncture / Unknown 10/25/2024 6:02 PM EDT 10/25/2024 6:10 PM EDT us Scott Rankin MD LAB BLOOD ORDERABLES Fi nal Result [facility] [address] [place] [address] * CT Angio Neck (10/25/2024 5:57 PM [...] branch. Occlusion of the left P2 segment [employer] MECHANICAL DESIGNER (series 3 image 1 5). CRITICAL RESULT: [...] Total DLP (Dose-Length Product): 2056.29 mGy.cm (accession [id number]), 2056.29 mGy.cm (accession [id number]), 2056.29 mGy.cm (accession [id number]). Please note: The reported value represents the [...] air cells are clear. CTA Head: Bilateral peanut picker. Significant critical stenosis of the right M1 [...] Total DLP (Dose-Length Product): 2056.29 mGy.cm (accession [id number]),2056.29 mGy.cm (accession [id number]), 2056.29 mGy.cm (accession [id number]).Please note: The reported value represents the total [...] air cells are clear. CTA Head: Bilateral peanut picker. Significant critical stenosis of the right M0xuncvbv. There is reduced caliber of the right [...] branch. Occlusion of the left P2 segment [employer] MECHANICAL DESIGNER (series 3 image 1 5). CRITICAL RESULT: No. COMMUNICATION: Per this written report. Drafted by Beulah Hu MD on 10/25/2024 6:08 PM Final report signed by Beulah Hu MD on 10/25/2024 6:34 PM us Scott Rankin MD IMG CT PROCEDURES Final Result * CT Angio Head (10/25/2024 5:57 PM EDT) Anatomical Region Laterality Modality [place] Computed Tomogr aphy Impressions 10/25/2024 6:34 PM EDT Evolving ischemic infarct of the right MCA territory. Subcentimeter hypodensity in the left basal ganglia suggestive of a age- indeterminate lacunar infarct. Significant critical stenosis of the right M1 segment.There is reduced caliber of the right M2 segment superior branch. Occlusion of the left P2 segment [employer] MECH[employer]ICAL DESIGNER (series 3 image 1 5). CRITICAL RESULT: [...] Total DLP (Dose-Length Product): 2056.29 mGy.cm (accession [id number]), 2055.29 mGy.cm (accession [id number]), 6.29 mGy.cm (accession [id number]). Please note: The reported value represents the [...] air cells are clear. CTA Head: Bilateral peanut picker. Significant critical stenosis of the right M1 [...] Total DLP (Dose-Length Product): 6.29 mGy.cm (accession [id number]),6.29 mGy.cm (accession [id number]), 2056.29 mGy.cm (accession [id number]).Please note: The reported value represents the total [...] air cells are clear. CTA Head: Bilateral peanut picker. Significant critical stenosis of the right N4suyloft. There is reduced caliber of the right [...] branch. Occlusion of the left P2 segment [employer] MECH[employer]ICAL DESIGNER (series 3 image 1 5). CRITICAL RESULT: No. COMMUNICATION: Per this written report. Drafted by Beulah Hu MD on 10/25/2024 6:08 PM Final report signed by Beulah Hu MD on 10/25/2024 6:34 PM Scott Rankin MD IM CT PROCEDURES Final Result * CT THORACIC OUTSIDE IMAGES (10/25/2024 3:04 PM EDT) Anatomical Region Laterality Modality Computed Tomogra phy 10/25/2024 3:04 PM EDT us External Provider IMG CT PROCEDURES Final Result from Last 3 Months Insurance [facility] MEDIC[facility] Care Teams Golf Course Designer Relationship Specialty Start Date End Date Jatinder Clifford MD PCP - General Family Medicine 11/05/24 Marzena Sosa LPN [facility] TCM Nurse 10/28/24
--- NOTE | 2024-11-05 15:00 | CT_ITS ---
FINAL REPORT TECHNIQUE: Pre- and postcontrast images of the abdomen were performed by computed tomography. Sagittal coronal reformatted images were obtained and reviewed. This study was performed with techniques to keep radiation doses as low as reasonably achievable, (ALARA). Individualized dose reduction techniques using automated exposure control or adjustment of mA and/or kV according to the patient's size were employed. CLINICAL HISTORY: Mass COMPARISON: Report dated 06/22/2023 FINDINGS: On the precontrast images, no kidney stones are identified. Lower lumbar fusion hardware causes streak artifact. On the post infused images, there is a small hiatal hernia. There is lobular mucosal thickening within the hernia. The mucosal thickening extends into the cardia of the stomach measuring up to 1.7 cm in thickness. Adjacent small lymph nodes are present. Individual nodes measure up to 10 mm. There is mild hazy stranding surrounding the mucosal thickening. The liver is enlarged measuring 21 cm in craniocaudal dimension. The spleen, pancreas, adrenals, and kidneys are unremarkable. IMPRESSION: Abnormal mucosal thickening within the hiatal hernia and cardia of the stomach with associated stranding and small lymph nodes. The possibility of underlying neoplasia is not excluded. Upper endoscopy is highly recommended. Reviewed, Interpreted and Dictated by Edson Vance MD Transcribed by Quynh Cody Authenticated and [facility]
--- NOTE | 2024-11-05 15:00 | CT_ITS ---
FINAL REPORT TECHNIQUE: Axial images through the chest was performed with and without contrast by computed tomography. Sagittal coronal reformatted images were obtained and reviewed. This study was performed with techniques to keep radiation doses as low as reasonably achievable, (ALARA). Individualized dose reduction techniques using automated exposure control or adjustment of mA and/or kV according to the patient's size were employed. CLINICAL HISTORY: Mass COMPARISON: 10/25/2024 FINDINGS: The mediastinal vasculature is well-opacified. Fluid is seen in the distal esophagus. There is a small to moderate hiatal hernia. There is no pleural or pericardial effusion. The heart is normal in size. Scarring is identified in the right lobe of the lung and both bases. Previously noted nodular densities at the right base are again identified measuring up to 5 mm. These nodules are less conspicuous than previous, now seen on image 72 of series 8. IMPRESSION: Fluid in the distal esophagus with small hiatal hernia, may be due to reflux. Stable nodules at the right base. Recommend follow-up in 1 year. Reviewed, Interpreted and Dictated by Edson Vance MD Transcribed by Quynh Cody Authenticated and [facility]
[2024-11-05] MEDS: IOPAMIDOL-370 (76%);100ML BOTTLE 75 ML IV (15:14)
[2024-11-05] MEDS: SODIUM CHLORIDE 0.9% 10ML SYR (RAD ONLY) 10 ML IV (15:15)
== END 2024-11-05 23:59 | disposition home or self-care (01) ==
LOC: RAD 14:43
PROVIDERS: PCP Family Medicine; Visit Provider Internal Medicine Gastroenterology
DX: K21.9 Gastro-esophageal reflux disease without esophagitis (principal); K44.9 Diaphragmatic hernia without obstruction or gangrene; R91.8 Other nonspecific abnormal finding of lung field; R93.3 Abnormal findings on diagnostic imaging of other parts of digestive tract; K22.89 Other specified disease of esophagus; K92.89 Other specified diseases of the digestive system
CPT/HCPCS: 71270; 74170; Q9967

== ENCOUNTER 2025-01-28 08:53 | Outpatient (CLI) | payer MEDICARE, SELFPAY ==
--- OUTSIDE RECORDS SUMMARY | 2024-12-10 15:30 | XMS_ITS | Encounter Summary ---
Author Organization [facility] Address [address] [place] [address] Care Team Providers Care Tipple Mechanic Name Role Phone Jatinder Clifford MD Primary Care Provider Samra vailable Encounter Details Date Type Department Care Team ([facility] st Contact Info) Description 12/10/2024 3:30 PM EDT Pre-Admission Testing [facility] [address] [place] [address] Anesthesia Record Procedure Summary Procedure Name Responsible Anesthesiologist Anesthesia Start Time Anesthesia Stop Time LAP ASSITED PEG TUBE, EGD, POSSIBLE J TUBE Ernesto Yung MD 12/12/24 1405 12/12/24 1506 Events Date Time Event Comment 12/12/2024 1035 1405 An Start The patient was reevaluated immediately before sedation and remains eligible for anesthesia plan. 1405 In Room 1405 An Start Data 1410 An Induction The patient was reevaluated immediately before moderate or deep sedation use and before anesthesia induction. 1415 An Intubation 1415 Anesthesia Ready 1420 Proc Start 1455 Proc Fin 1456 An Extubation 1458 an stop data 1459 Out of Room 1505 Handoff to Receiving I compl eted my handoff to the receiving clinician during which we: 1. Identified the patient 2. Identified the responsible provider 3. Reviewed the pertinent medical history 4. Discussed the surgical course 5. Reviewed intra-op anesthesia management and issues during anesthesia 6. Set expectations for post-procedure period 7. Allowed opportunity for questions and acknowledgement of understanding. 1506 An Stop Meds * Agents No agents on file. * Blood No blood administrations on file. Lines, Drains, and Airways Type Details Placement Removal Wound 12/12/24; 1437; N; Y es; Surgical; Abdomen; Upper 12/12/24 1437 by Ricarda Alonso RN Peripheral IV Placement Date: 11/19 10/12; Placement Time: 1059; Catheter Size: 20 G; Orientation: Posterior, Right; Location: Hand; Site Prep: Chlorhexidine ; Local Anesth: [place]; Technique: Anatomical landmarks; Inserted by: Liana FALLON; Insertion Attempts: 1; Patient Tolerance: Tolerated well; Removal Date: 12/12/24; Removal Time: 1800 12/12/24 1059 by Ying Koenig RN 12/12/24 1800 by Nichelle Brumfield RN ETT Placement Date: 11/19 10/12; Placement Time: 141 (created via procedure documentation); Mask Ventilation: 3; Technique: Direct laryngoscopy; Type: ETT - single; Single Lumen Tube Size: 8 mm; Cuffed: Yes; Laryngoscope: John; Blade Size: 3; Location: Oral; Grade View: Grade IIa; Insertion Attempts: 1; Placement Verification: Auscultation, Capnometry; Airway Comments: Atraumatic. No change to dentition. ; Placed by: SONDRA; Removal Date: 12/12/24; Removal Time: 1456 12/12/24 1415 by Gisel Siu CRNA 12/12/24 1456 by Gisel Siu CRNA documented in this encounter Social History Tobacco Use Types Packs/Day Years Used Date Smoking Tobacco: Former Cigarettes 3 33 1 967 - 2000 Passive Smoke Exposure: Past Smokeless Tobacco: Never Tobacco Cessation:Counseling Given: Not Answered Alcohol Use Standard Drinks/Week Comments Not Currently 0 (1 standard drink = 0.6 oz pur e alcohol) 1-2 servings weekly PHQ-2 Answer Date Recorded Patient Health Questionnaire-2 [...] any time in the past 12 m onths, were you homeless or living in a fdc (including now)? No 10/28/2024 Utilities Answer Date Recorded In the past 12 months has th e [employer], gas, oil, or water [employer] threatened to shut off services in your home? No 10/28/2024 Sex and Gender Information Value Date Recorded Sex Assigned at Not on file Legal Sex Male 4:15 PM EDT Gender Identity Not on file Sexual Orientation Not on file documented as of this encounter Last Filed Vital Signs Vital Sign Reading Time Taken Comments Blood Pressure - - Pulse - - Temperature - - Respiratory Rate - - Oxygen Saturation - - Inhaled Oxygen Concentration - - Weight 110 kg (242 lb) 12/10/2024 4:13 PM EDT Height - - Body Mass Index 32.82 10/31/2024 3:33 PM EDT documented in this encounter Functional Status * Calculated C-SSRS Risk Score (Lifetime/Recent) Answer Date of Assessment Author No Risk Indicated 12/12/2024 10:42 AM EDT Liana Suresh * Question Answer Date of Assessment Author 1. Wish to be (Past 1 Month) No 025 10:42 AM EDT Liana Suresh 2. Non-Specific Active Suici isabel Thoughts (Past 1 Month) No 12/12/2024 10:42 AM EDT Linaa Suresh 6. Suicidal Behavior (Lifetime) No 10:42 AM EDT Liana Suresh documented as of this encounter Miscellaneous Notes * PAT Evaluation Note - Amie Osorio, BAR ATTENDANT - 12/10/2024 3:30 PM EDT Images from the original note were not included. HPI Edwin Cook is a 69 y.o. male who presents with Pre-op Diagnosis * Aphasia [R47.01] now scheduled for LAP ASSITED PEG TUBE, EGD, POSSIBLE J TUBE (N/A) with Everett Beyer, DO on 12/12/2024 in [facility] PMH of HLD, GERD, [place], newly diagnosed Esophageal Cancer, Hypothyroidism, tobacco use disorder, obesity and recent TIA. Admitted to 10/25-10/27/2024 with a TIA. He was found to have a chronic right parietal infarct, mechanism unknown with high clinical suspicion for cardioembolic source. A cardiac event monitor was [facility] at discharge [facility]. He started DAPT x 21 days with aspirin and plavix in addition to crestor for secondary prevention of stroke. After 21 days, will d/c plavix and continue aspirin/statin only. Past Medical History[1] Family History[2] Social History[3] Surgical History[4] Allergies[5] MEDICATIONS: Current Medications[6] ROS Anesthesia: Date of last anesthetic: EGD 10/2024. Lumbar Spine surgery 3-4 yr ago obstructive sleep apnea (home CPAP). Does not have a history of anesthetic complications, malignanthyperthermia and PONV. Cardiovascular: dysrhythmias (SVT on patch montior) and hyperlipidemia. Does not have CAD, CHF, dyspnea, murmur, pacemaker, past FL or syncope. hypertension: Does not have chest pain. Cardio additional comments: Exercise tolerance tolerance 2-3 flights Mows his lawn, trims weeds Can lay flat but causes back pain. Respiratory: Does not have home oxygen. Patient has no dyspnea.no asthma: COPD: breathing at baseline.Has not had an upper respiratory infection in last 30 days. Has not had bronchitis in the last 30 days, pneumonia in the last 30 days or COVID in the last 30 days. HEENT: difficulty swallowing (dysphagia 2/2 esophageal mass. Tolerating mainly liquids.).Does not have temporomandibular joint syndrome. Does not have hearing loss. HEENT additional comments: Edentulous, has dentures. Neurological: no seizures: a cerebrovascular accident (chronic ischemic infarct right MCA territory.) with no residual symptoms.TIA (10/25/24). Musculoskeletal: Does not have cervical spine limited mobility. Musc/Skel/Integ additional comments: DDD lumbar spine s/p back surgery x 4 Autoimmune: Does not have lupus or rheumatoid arthritis. Gastrointestinal: GERD (currently does not take medication and having sx):inflammatory bowel disease (sx age age 49's. Treated with steroids initially then biologics. Now in remission. No treatment since ~ 2016.Follows with GI): Crohn disease. GI malignancy. Does not have cirrhosis or hepatitis. GI/ additional comments: 10/23/24 EGD w/dilation Findings: partial circumferential fungating mass measuring about 2cm in length at the GE junction. Path: adenocarcinoma. Genitourinary: Does not have renal disease. Hematological/Lymphatic: History of no DVT. History of no pulmonary embolism. Not in a hypercoagulable state. no history of chemotherapy no history of radiation Does not have MRSA or tuberculosis. Hem/Lymph ROS additional comments: ASA 18mg daily for CVA/Stroke hx Endocrine/Metabolic: does not have diabetes mellitus. thyroid disorder (hypothyroidism, on levothyroxine). 10/27/24 ECHO: The left ventricle is normal size. There is concentric remodeling. The left ventricular systolic function is normal. The LVEF is visually estimated at 60 - 70%. The right ventricle is normal in size. The right ventricular systolic function is normal. The left atrium is dilated by visual assessment. There is no recent study available for direct [id number] comparison. 10/27/24 14 day Patch Monitor: PHYSICIAN COMMENTS: Predominant rhythm is sinus rhythm. Rare premature ventricular complexes were recorded during the monitoring period (normal/expected amount). Occasional premature atrial complexes at 3.6% 285 runs of PSVT, longest at 19-beats 9 pauses (longest at 2180ms) were recorded, all during 3-4am time period 2 triggered event was associated with PSVT. 2 triggered events were not associated with clinical arrhythmias (sinus rhythm). Lab Results Component Value Date WBC 8.68 10/27/2024 HGB 14.0 10/27/2024 HCT 42.9 10/27/2024 MCV 89 10/27/2024 PLT 194 10/27/2024 Lab Results Component Value Date GLUCOSE 91 10/27/2024 BUN 11 10/27/2024 CREATININE 1.02 10/27/2024 BCR 11 10/27/2024 NA 138 10/27/2024 K 3.8 10/27/2024 CL 104 10/27/2024 CO2 25 10/27/2024 ALBUMIN 4.2 10/25/2024 ALKPHOS 75 10/25/2024 BILITOT 0.9 10/25/2024 Lab Results Component Value Date HGBA1C 5.6 10/25/2024 Lab Results Component Value Date INR 1.1 10/25/2024 INR 1.1 10/25/2024 Visit Vitals Smoking Status Former 12/10/2024 4:13 PM Vitals Weight (kg) 109.77 kg BMI 32.82 kg/m2 BSA (m2) 2.36 m2 Physical Exam Anesthesia Plan ASA 3 Anesthesia technique(s) discussed with the patient/family: general Comment: JONI Phone screen. Amie Osorio APRN [1] Past Medical History: Diagnosis Date Esophageal cancer (CMS/HCC) Hypothyroidism Stroke (CMS/HCC) 10/25/2024 [2] Family History Problem Relation Name Age of Onset Lung cancer Father [3] Social History Tobacco Use Smoking status: Former Current packs/day: 0.00 Average packs/day: 3.0 packs/day for 33.0 years (99.0 ttl pk-yrs) Types: Cigarettes Start date: 1966 Quit date: 2000 Years since quittin.5 Passive exposure: Past Substance Use Topics Alcohol use: Not Currently Comment: Moderate Drug use: Never [4] Past Surgical History: Procedure Laterality Date BACK SURGERY x4 SKIN CANCER EXCISION x2 [5] No Known Allergies [6] Current Outpatient Medications: armodafinil, Take 1 tablet by mouth daily. aspirin, Chew 1 tablet daily. Boost VHC, Take 237 mL by mouth 3 times a day. buPROPion XL, Take 1 tablet by mouth daily. Do not crush, chew, or split. fenofibrate, Take 1 tablet by mouth daily. fluticasone-salmeterol, Inhale 1 puff 2 times a day. Rinse mouth with water after use to reduce aftertaste and incidence of candidiasis. Do not swallow. levothyroxine, Take 1 tablet by mouth daily. levothyroxine, Take 1 tablet by mouth daily. losartan, Take 1 tablet by mouth daily. rosuvastatin, Take 1 tablet by mouth daily. tamsulosin, TAKE 1 CAPSULE 1 TIME EACH DAY FOR PROSTATE * Preprocedure Instructions - Amie Osorio APRN - 12/10/2024 3:30 PM EDT Home Medication Instructions Current Medications Medication Instructions armodafinil (Nuvigil) 200 MG tablet Take as needed aspirin 81 MG chewable tablet Take morning of surgery Boost [facility] (Boost) [facility] liquid Hold day of surgery buPROPion XL (Wellbutrin XL) 300 MG 24 hr tablet Take morning of surgery fenofibrate (Triglide) 160 MG tablet Take morning of surgery fluticasone-salmeterol (Advair Diskus) 250-50 MCG/ACT diskus inhaler Take morning of surgery levothyroxine (Synthroid, Levoxyl) 200 MCG tablet Take morning of surgery levothyroxine (Synthroid, Levoxyl) 50 MCG tablet Take morning of surgery losartan (Cozaar) 25 MG tablet Hold day of surgery potassium chloride CR (Klor-Con) 10 MEQ ER tablet Hold day of surgery rosuvastatin (Crestor) 20 MG tablet Take morning of surgery tamsulosin (Flomax) 0.4 MG 24 hr capsule Take morning of surgery General Preoperative Instructions You will be called the business day before surgery with your arrival time Do not eat or drink anything after midnight except water with your medications unless other instructions are given No alcohol or smoking prior to surgery Arrive on time to avoid delays Parking/Registration procedure explained You MUST have a responsible adult available for transport to and from hospital Visitation policy for the day of surgery reviewed Bring insurance card, photo ID, along with power of business continuity analyst, guardianship or advanced directives if applicable Do not bring money, jewelry or other valuables Hibiclens bathing instructions reviewed if applicable Notify surgeon of fever, illness, any changes or if you decide not to have surgery Diabetes Instructions (If applicable) Take diabetes medication as instructed You may have up to 4 ounces of apple juice 2 hours prior to arrival for surgery for low glucose documented in this encounter Plan of Treatment Upcoming Encounters Date Type Department Care Team (Late st Contact Info) Description 06/10/2025 9:00 AM EST Office Visit [place] [facility] [address], [address] [place] [address] Korey Fernandes MD [address] [place] [address] documented as of this encounter Visit Diagnoses Not on filedocumented in this encounter Additional Health Concerns Assessment Noted Time PHQ-9 Depression Total Score: 1 11/01/19 3:42 PM EDT A fall risk assessment has been complete d for the patient 11/20/2024 10:47 AM EDT A Body Mass Index follow-up plan has been documented for the patient 11/24/2024 3:18 PM EDT documented as of this encounter Care Teams Tipple Mechanic Relationship Specialty Start Date End Date Jatinder Clifford MD PCP - General Family Medicine 11/05/24 documented as of this encounter
--- OUTSIDE RECORDS SUMMARY | 2024-12-12 09:54 | XMS_ITS | Encounter Summary ---
Author Organization [facility] Address [address] [place] [address] Care Team Providers Care Cytotechnologist Supervisor Name Role Phone Jatinder Clifford MD Primary Care Provider Samra vailable Reason for Referral * Consultation (Routine) - Authorized Specialty Diagnoses / Procedures Referred By Lito sibley Referred To Contact Hematology and Oncology Diagnoses Feeding difficulties Casandra Rodríguez APRN [address] [place] [address] Phone: tel: fax: [facility] [address] [place] [address] Phone: tel: fax: Referral ID Status Reason Start Date Expiration Date Visits Requested Visits Authorized [id number] Authorized Specialty Services Required 12/12/2024 06/13/2026 1 1 Scheduling Instructions *Do Not Schedule* - This referral is for managing the [facility] Dietitian workflow. * Consultation (Routine) - Closed Specialty Diagnoses / Procedures Referred By Lito sibley Referred To Contact Cardiothoracic Surgery Diagnoses Feeding difficulties Casandra Rodríguez APRN [address] [place] [address] Phone: tel: fax: Cardiothoracic Surgery [address] [place] [address] Phone: tel: Referral ID Status Reason Start Date Expiration Date V isits Requested Visits Authorized [id number] Closed Specialty Services Required 12/12/2024 06/13/2026 1 1 Reason for Visit * Auth/Cert (Routine) Specialty Diagnoses / Procedures Referred By Contliz t Referred To Contact Diagnoses Aphasia Aphasia Procedures CA EDG PERCUTANEOUS PLACEMENT GASTROSTOMY TUBE CA INSERT TUBE-BOWEL,ENTERAL ALIMENT CA ESOPHAGOGASTRODUODENOSCOPY TRANSORAL DIAGNOSTIC LAP ASSITED PEG TUBE, EGD, POSSIBLE J TUBE LAP ASSITED PEG TUBE, EGD, POSSIBLE J TUBE LAP ASSITED PEG TUBE, EGD, POSSIBLE J TUBE Everett Beyer, DO [address] [address] Phone: tel: fax: [facility] [address] [place] [phone] Phone: tel: Referral ID Status Reason Start Date Expiration Date Visits Re quested Visits Authorized [id number] 1 3 Encounter Details Date Type Department Care Team (Latest Contact Info) Description 12/12/2024 9:54 AM EDT - 12/13/2024 2:02 AM EDT Hospital Encounter [facility] [address] [place] [phone] Everett Beyer, DO [address] [phone] Feeding difficulties (Primary Dx) Discharge Disposition: Home or Self Care Social History Tobacco Use Types Packs/Day Years Used Date Smoking Tobacco: Former Cigarettes 3 33 1 967 - 2000 Passive Smoke Exposure: Past Smokeless Tobacco: Never Alcohol Use Standard Drinks/Week Comments Not Currently [...] money to buy more. Never true 10/29/19 Within the past 12 months, t he [...] the past 12 months has th e [employer], gas, oil, or water company threatened to shut off services in your home? No 10/28/2024 Sex and Gender Information Value Date Recorded Sex Assigned at Not on file Legal Sex Male 4:15 PM EDT Gender Identity Not on file Sexual Orientation Not on file documented as of this encounter Last Filed Vital Signs Vital Sign Reading Time Taken Comments Blood Pressure 128/69 12/12/2024 5:15 PM EDT Pulse 52 12/12/2024 5:15 PM EDT Temperature 37 C (98.6 F) 12/12/2024 5:00 PM EDT Respiratory Rate 10 12/12/2024 5:15 PM EDT Oxygen Saturation 97% 12/12/2024 5:15 PM EDT Inhaled Oxygen Concentration - - Weight 110 kg (242 lb) 12/12/2024 10:23 AM EDT Height 182.9 cm (6') 12/12/2024 10:23 AM EDT Body Mass Index 32.82 12/12/2024 10:23 AM EDT documented in this encounter Functional Status * Calculated C-SSRS Risk Score (Lifetime/Recent) Answer Date of Assessment Author No Risk Indicated 12/12/2024 10:42 AM EDT Liana Suresh * Question Answer Date of Assessment Author 1. Wish to be (Past 1 Month) No 025 10:42 AM EDT Liana Suresh 2. Non-Specific Active Suici isabel Thoughts (Past 1 Month) No 12/12/2024 10:42 AM EDT Liana Suresh 6. Suicidal Behavior (Lifetime) No 10:42 AM EDT Liana Suresh documented as of this encounter Discharge Instructions * Discharge Instructions* Brigido Dewey MD - 12/12/2024 4:06 PM EDT Medications: - You should take Tylenol and/or ibuprofen every 6 hours as needed for mild - moderate pain. - You have been prescribed pain medications to be taken as needed for severe pain. - You may consider taking a stool softener as long as you are taking narcotics. - You may resume your previous medications unless otherwise instructed. Nutrition: - You have been provided information and teaching from the dieticians. Activity: - Walking and climbing stairs is ok and encouraged. You should refrain from any strenuous activity/exercise until your follow up appointment. - No lifting anything >20lbs for the next 2 weeks - You may not drive while taking narcotics Dressing: - A special skin glue is used to close and cover your incision. Do not pick it off, it will fall ofon its own after approximately 2 weeks. The glue is waterproof but you should not soak your incision or take a tub bath for 2 weeks. - You should try to keep your incisions as clean and dry as possible - You may shower. Let the soapy water run over your incisions. Do not scrub at your incisions. After you shower, pat your incisions dry with a clean towel. - Do NOT soak your incisions, or take a tub bath for 2 weeks. Potential Issues: - It is normal to have some pain and soreness, especially around the incisions - A small amount of clear drainage from around the PEG may be expected, call the office if the drainage becomes bloody, purulent (pus), or foul-smelling - Call the office if you start to have increased redness, drainage, swelling, or increased pain around your incision - Call the office if you have a fever greater than 101 F - Call the office if you have severe abdominal discomfort, nausea and vomiting, or feeling unwell Follow Up: - You will be contacted by the clinic for a follow up appointment with Dr. Beyer in 2 weeks - Contact the Thoracic Surgery team via: - For non-emergent questions/concerns: Clinic discharge # - For urgent questions/concerns: MDs hotline: , option 4 - ask for the thoracic surgeon conveyor operator. documented in this encounter Medications at Time of Discharge armodafinil (Nuvigil) 200 MG tablet Take 1 tablet by mouth daily. aspirin 81 MG chewable tablet Chew 1 tablet daily. 90 tablet 10/28/2024 buPROPion XL (Wellbutrin XL) 300 MG 24 hr tablet Take 1 tablet by mouth daily. Do not crush, chew, or split. fenofibrate (Triglide) 160 MG tablet Take 1 tablet by mouth daily. fluticasone-salmet shad (Advair Diskus) 250-50 MCG/ACT diskus inhaler Inhale [...] tablet Take 1 tablet by mouth daily. neomycin-polymyxin -dexamethasone (Maxitrol) 3.5-09653-6.[address] 1 DROP IN BOTH EYES 4 TIMES EACH DAY FOR 14 DAYS 11/18/2024 potassium chloride CR (Klor-Con) 10 MEQ ER tablet Take 1 tablet by mouth daily. Do not crush, chew, or split. rosuvastatin (Crestor) 20 MG tablet Take 1 tablet by mouth daily. 30 tablet 10/27/2024 tamsulosin (Flomax) 0.4 MG 24 hr capsule TAKE 1 CAPSULE 1 TIME EACH DAY FOR PROSTATE 10/28/2024 oxyCODONE (Roxicodone) 5 MG immediate release tablet Take 1 tablet by mouth every 6 hours as needed for moderate pain for up to 7 days. 5 tablet 12/12/2024 5 Boost [facility] (Boost) [facility] liquidIndications: Aphasia,Feeding difficulties Take 237 mL by mouth 3 times a day. 19199 mL 11/20/2024 documented as of this encounter Miscellaneous Notes * Anesthesia PACU Signout - Maine Herndon MD - 12/12/2024 5:25 PM EDT Patient: Dino Cook Anesthesia Type: general Vitals Value Taken Time BP 128/69 12/12/24 17:15 Temp 37 ??C (98.6 ??F) 12/12/24 17:00 Pulse 51 12/12/24 17:18 Resp 13 12/12/24 17:18 SpO2 97 % 12/12/24 17:18 Vitals shown include unfiled device data. Anesthesia PACU Signout Patient location during evaluation: PACU Patient participation: complete - patient participated Level of consciousness: baseline and awake Pain management: adequate (pain score 0-3) Airway patency: natural airway Hydration status: acceptable PONV: none Cardiovascular status: acceptable and hemodynamically stable Respiratory status: acceptable, spontaneous ventilation, unassisted and nonlabored ventilation Discharge Disposition: home Cosigned by Vitor Singh MD at 12/12/2024 5:49 PM EDT Associated attestation - Vitor Singh MD - 12/12/2024 5:49 PM EDT Signature only. * [facility] - Nichelle Brumfield RN - 12/12/2024 5:06 PM EDT Images from the original note were not included. 1047 Alternating Acetaminophen and Ibuprofen for Your Child?s Fever or Pain Your doctor recommends that you give your child alternating doses of acetaminophen and ibuprofen. These medicines help reduce fever and pain. To do this safely, follow your provider's instructions. You must wait 3 hours between doses. 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 male who is having surgery for dysphagia. 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 He is unable to maintain nutrition or hydration. As such the risks and benefits of surgery were discussed with the patient the appropriate consents were signed. Narrative: The patient was brought to the operating room placed in the supine position. General anesthesia wasinduced. Once anesthesia was induced a time-out was called and consent was confirmed on chart. The patient was placed with the supine with the arms tucked bilaterally the abdomen was prepped and draped in normal sterile fashion. Approximately 1 fingerbreadth below left costal margin a skin incision was made and a Veress needle was inserted position was confirmed with aspiration as well as saline meniscus test. Pneumoperitoneum was insufflated to 15 mmHg. Once pneumoperitoneum was established an11 mm trocar was placed in the right upper quadrant and the abdomen was inspected. There was no evidence of initial trocar injuries or carcinomatosis. Flexible EGD was then introduced through the oropharynx into the esophagus the esophagus was traversed and at the level of the GE junction there wasa partially obstructing esophageal tumor this was able to be traversed with the scope. As such the stomach was insufflated and a 20 Danish PEG tube was placed in the usual pull fashion. It was secured to the skin. The stomach and esophagus were decompressed and the scope was removed. Pneumoperitoneum was then allowed to collapse after hemostasis was assured. The 11 mm trocar was removed and the fascia was reapproximated with an 0 Vicryl suture. Patient tolerated the procedure well was extubatedand taken to PACU in stable condition There were NO signs of surgical site infection (SSI) present at the time of surgery (PATOS). Complications: None; patient tolerated the procedure well. Submitted by: Everett Beyer DO - 12/12/2024 * Brief Op Note - Brigido Dewey MD - 12/12/2024 2:20 PM EDT Date: 12/12/24 Location: [facility] Name: Dino Cook, : 1955, Diagnoses: Pre-op Diagnosis Aphasia Post-op Diagnosis Aphasia Procedure(s): EGD, Laparoscopic assisted PEG placement Attending Surgeon(s): * Everett Beyer - Primary Policeman(s): * Brigido Dewey MD - Resident - Assisting Anesthesia: General ASA: III Blood Administration: Blood Product Administration History None Estimated Blood Loss: Minimal Drains: * None in log * Specimen: Findings: Able to traverse EGD scope past esophageal tumor. PEG placed without issue. Bumper 4cm at the skin. Complications: None; patient tolerated the procedure well. Submitted by: Brigido Dewey MD - 12/12/2024 Cosigned by Everett Beyer DO at 12/12/2024 4:46 PM EDT Associated attestation - Everett Beyer DO - 12/12/2024 4:46 PM EDT I was present for the entirety of the procedure(s). * H&P - Angi Brown MD - 12/12/2024 1:00 PM EDT Images from the original note were not included. [facility] Department of Surgery Section of Thoracic Surgery History & Physical Note Consulting MD: Dr. Elver Pitt Reason for Consultation/Chief complaint: esophageal cancer History of Present Illness: Edwin Cook is a 69 y.o. male w/ PMH recent TIA, Crohn's Disease (no meds), JUAN DIEGO, HLD, GERD, tobacco abuse, obesity who presented to the outpatient clinic for biopsy-proven esophageal cancer. Patient underwent EGD on 10/23/24 due to 4 week history of dysphagia with solid foods and associated weightloss. EGD demonstrated a partial circumferential fungating mass measuring about 2cm in length at the GE junction. Final pathology demonstrated invasive poorly differentiated adenocarcinoma. He was dilated to 20mm at time of his EGD and has noticed a slight improvement. He is able tolerate liquids, but unable to tolerate many solid foods. He is now drinking boost/ensure shakes. He has a longstanding history of poorly controlled acid reflux. He quit smoking in 2004. Today he is doing well, he denies fever, chills, and recent illness. His last meal was 2000 last night. He is not on any anticoagulation. Past Medical History: Past Medical History Pertinent Negatives Past Medical History: Diagnosis Date Esophageal cancer (CMS/HCC) Hypothyroidism Stroke (CMS/HCC) 10/25/2024 Past Surgical History: Surgical History Past Surgical History: Procedure Laterality Date BACK SURGERY x4 SKIN CANCER EXCISION x2 Social History: Tobacco - former smoker, quit 2004 Alcohol - none Drugs - none Family Medical History: family history includes Lung cancer in his father. Allergies: Allergies No Known Allergies Home Medications: Current Medications Current Outpatient Medications: armodafinil (Nuvigil) 200 MG tablet, Take 1 tablet by mouth daily., Disp: , Rfl: aspirin 81 MG chewable tablet, Chew 1 tablet daily., Disp: 90 tablet, Rfl: 0 buPROPion XL (Wellbutrin XL) 300 MG 24 hr tablet, Take 1 tablet by mouth daily. Do not crush, chew,or split., Disp: , Rfl: fenofibrate (Triglide) 160 MG tablet, Take 1 tablet by mouth daily., Disp: , Rfl: fluticasone-salmeterol (Advair Diskus) 250-50 MCG/ACT diskus inhaler, Inhale 1 puff 2 times a day. Rinse mouth with water after use to reduce aftertaste and incidence of candidiasis. Do not swallow.,Disp: , Rfl: levothyroxine (Synthroid, Levoxyl) 50 MCG tablet, Take 1 tablet by mouth daily., Disp: , Rfl: losartan (Cozaar) 25 MG tablet, Take 1 tablet by mouth daily., Disp: , Rfl: rosuvastatin (Crestor) 20 MG tablet, Take 1 tablet by mouth daily., Disp: 30 tablet, Rfl: 0 tamsulosin (Flomax) 0.4 MG 24 hr capsule, TAKE 1 CAPSULE 1 TIME EACH DAY FOR PROSTATE, Disp: , Rfl: levothyroxine (Synthroid, Levoxyl) 200 MCG tablet, Take 1 tablet by mouth daily., Disp: , Rfl: ROS: General: no fevers or chills, no heat or cold intolerance, no subjective weight loss HEENT: no changes in vision, no sore throat, no changes in hearing, no tinnitus, no nasal drainage CV: no chest pain, no palpitations, no lightheadedness, no PND, no orthopnea, no LE swelling, no claudication Pulm: no shortness of breath, no cough, no hemoptysis GI: no nausea, no vomiting, no abdominal pain, no constipation, no diarrhea, no melena, no hematochezia, no dysphagia, no heartburn Skin: no rash Neuro: no numbness, no tingling, no headache, no difficulties with speech, no gait disturbance Heme: no easy bruising, no bleeding from the gums Endo: No polyuria or polydypsia Psych: no depression or anxiety Physical exam: Visit Vitals BP 131/62 Comment: rn notified Pulse 51 Temp 36.3 ??C (97.4 ??F) Wt 119 kg (262 lb 5.6 oz) SpO2 98% BMI 35.58 kg/m?? General: alert and oriented, appropriate Lungs: CTA B, no wheezes or rhonchi Heart: RRR, no murmurs Abdomen: soft NT/ND, normal bowel sounds Lymph nodes: no palpable supraclavicular or cervical adenopathy Extremities: no peripheral edema Skin: no rash, no cyanosis and warm to touch Psychiatric: oriented to person/place/time and normal mood/affect Imaging: I independently visualized the imaging which includes: CT Chest 11/05/24: small to moderate HH. Stable pulmonary nodules at right base compared to previous. CT abdomen: abnormal mucosal thickening within HH and cardia of stomach with associated stranding and small lymph nodes. Additional testing: Echo 10/25/24: The left ventricle is normal size. There is concentric remodeling. The left ventricular systolic function is normal. The LVEF is visually estimated at 60 - 70%. The right ventricle is normal in size. The right ventricular systolic function is normal. The left atrium is dilated by visual assessment. There is no recent study available for direct hlfr-df-tirj comparison. Assessment and Plan: Edwin Cook is a 69 y.o. male w/ PMH recent TIA, Crohn's Disease (no meds), JUAN DIEGO, HLD, GERD, tobacco abuse, obesity who presents to the outpatient clinic for biopsy-proven esophageal cancer. Patient underwent EGD on 10/23/24 due to 4 week history of dysphagia with solid foods and associated weight loss. EGD demonstrated a partial circumferential fungating mass measuring about 2cm in length at theGE junction. Final pathology demonstrated invasive poorly differentiated adenocarcinoma. CT Chest and abdomen demonstrate thickening at GE junction and made note of some enlarged regional lymph nodes. We had a derrek and candid conversation regarding the multidisciplinary approach and the importance of staging in the treatment of esophageal cancer. He has established care with Dr. Ovalle and we willarrange a PET scan with him to complete the staging process. Based on EGD findings and symptoms, patient is at least a Stage II or III and will require neoadjuvant chemorads prior to consideration for esophagectomy. He will return to our clinic with restaging PET scan and PFTs (recent echocardiogram in Epic) following completion of neoadjuvant therapy for surgical discussion. Patient to the OR today 12/12/24 for PEG Tube placement - History and physical note at admission/Most recent progress note reviewed and with no significantchanges noted - The risks, benefits, indications, contraindications, and surgical alternatives have been explained to the patient. The patient participated in the discussion and was given an opportunity to ask questions. All questions answered. -Written informed consent signed and located in the patient's chart. - NPO since midnight Angi Brown MD General Surgery Resident Cosigned by Everett Beyer DO at 12/12/2024 4:56 PM EDT Associated attestation - Everett Beyer DO - 12/12/2024 4:56 PM EDT I saw and evaluated the patient with the resident/fellow. I discussed the case with the resident/fellow and agree with the findings and plan as documented. documented in this encounter Plan of Treatment Upcoming Encounters Date Type Department Care Team (Late st Contact Info) Description 06/10/2025 9:00 AM EST Office Visit [place] [facility] [address] [place] [address] Korey Fernandes MD [address] [place] [address] Scheduled Referrals Name Type Priority Associated Diagnoses Orde r Schedule Discharge Ambulatory referral to Thoracic Surgery Outpatient Referral Routine Feeding difficulties Expected: 12/25/2024, Expires: 06/15/2026 Ambulatory referral to [facility] Oncology Nutrition Outpatient Referral Routine Feeding difficulties 1 Occurrences starting 12/12/2024 until 06/14/2026 documented as of this encounter Procedures Procedure Name Priority Date/Time Associated Diagnosis Comments CA ESOPHAGOGASTRODUODENOSCOP Y TRANSORAL DIAGNOSTIC 12/12/2024 1:50 PM EDT Aphasia CA INSERT TUBE-BOWEL,ENTERAL ALIMENT 12/12/2024 1:50 PM EDT Aphasia CA EDG PERCUTANEOUS PLACEMEN T GASTROSTOMY TUBE 12/12/2024 1:50 PM EDT Aphasia documented in this encounter Visit Diagnoses Diagnosis Feeding difficulties- Primary Feeding difficulties and mismanagement documented in this encounter Administered Medications Inactive Administered Medications - up to 3 most recent administrations Medication Order MAR Action Action Date Dose Rate Site acetaminophen (Tylenol) tablet 1,000 mg 1,000 mg, Oral, Once as needed, 1 dose, Starting on Sun12/12/24 at 1449, Until 12/13/24 at 0404, Routine, Recovery (Phase I only), pain score of 1-3 out of 10 droperidol (Inapsine) injection 0.625 mg 0.625 mg, Intravenous, Once as needed, 1 dose, Starting on Sun12/12/24 at 1735, Until Sun12/12/24 at 1740, Routine, Recovery (Phase I only), nausea, vomiting Given 12/12/2024 5:40 PM EDT 0.625 mg fentaNYL (Sublimaze) injection 25 mcg 25 mcg, Intravenous, Every 5 min PRN, 2 doses, Starting on Sun12/12/24 at 1449, Until 12/13/24 at 0404, Routine, Recovery (Phase I only), pain score of 4-6 out of 10 fentaNYL (Sublimaze) injection 50 mcg 50 mcg, Intravenous, Every 5 min PRN, 2 doses, Starting on Sun12/12/24 at 1449, Until Sun12/12/24 at 1535, Routine, Recovery (Phase I only), pain rating 7-10 Given 12/12/2024 3:35 PM EDT 50 mcg Given 12/12/2024 3:16 PM EDT 50 mcg HYDROcodone-acetaminophen ([place]) 5-325 MG per tablet 10 mg of hydrocodone 10 mg of hydrocodone, Oral, Once as needed, 1 dose, Starting on Sun12/12/24 at 1449, Until Sun12/12/24 at 1506, Routine, Recovery (Phase I only), pain score of 6-8 out of 10 Given 12/12/2024 3:06 PM EDT 10 mg of hydrocodone HYDROmorphone (Dilaudid) injection 0.5 mg 0.5 mg, Intravenous, Every 10 min PRN, 2 doses, Starting on Sun12/12/24 at 1555, Until Sun12/12/24 at 1648, STAT, Recovery (Phase I only), severe pain, for pain scale 6-10 Given 12/12/2024 4:48 PM EDT 0.5 mg Given 12/12/2024 4:05 PM EDT 0.5 mg ipratropium-albuterol (Duo-Neb) 0.5-2.5 mg/3 mL nebulizer solution 3 mL 3 mL, Nebulization, Once as needed, 1 dose, Starting on Sun12/12/24 at 1449, Until 12/13/24 at 0404, Routine, Recovery (Phase I only), shortness of breath naloxone (Narcan) injection 0.4 mg 0.4 mg, Intravenous, As needed, Starting on Sun12/12/24 at 1449, Until 12/13/24 at 0404, Routine, Recovery (Phase I only), respiratory depression ondansetron (Zofran) injection 4 mg 4 mg, Intravenous, Once as needed, 1 dose, Starting on Sun12/12/24 at 1449, Until Sun12/12/24 at 1722, Routine, Recovery (Phase I only), nausea, vomiting Given 12/12/2024 5:22 PM EDT 4 mg sodium chloride 0.9 % flush 1 mL 1 mL, Intravenous, Every 8 hours PRN, Starting on Sun12/12/24 at 1101, Until 12/13/24 at 0404, Routine, On Unit - Preprocedure, line care documented in this encounter Active and Recently Administered Medications Times are shown in EDT. PRN Medication Order 12/11/2024 12/12/2024 12/13/2024 acetaminophen (Tylenol) tablet 1,000 mg 1,000 mg, Oral, Once as needed, 1 dose, Starting on Sun12/12/24 at 1449, Until 12/13/24 at 0404, Routine, Recovery (Phase I only), pain score of 1-3 out of 10 droperidol (Inapsine) injection 0.625 mg (COMPLETED) 0.625 mg, Intravenous, Once as needed, 1 dose, Starting on Sun12/12/24 at 1735, Until Sun12/12/24 at 1740, Routine, Recovery (Phase I only), nausea, vomiting 1740 (Given - Provider: Nichelle Brumfield RN) fentaNYL (Sublimaze) injection 25 mcg 25 mcg, Intravenous, Every 5 min PRN, 2 doses, Starting on Sun12/12/24 at 1449, Until 12/13/24 at 0404, Routine, Recovery (Phase I only), pain score of 4-6 out of 10 fentaNYL (Sublimaze) injection 50 mcg (COMPLETED) 50 mcg, Intravenous, Every 5 min PRN, 2 doses, Starting on Sun12/12/24 at 1449, Until Sun12/12/24 at 1535, Routine, Recovery (Phase I only), pain rating 7-10 1516 (Given - Provider: Nichelle Brumfield RN)1535 (Given - Provider: Nichelle Brumfield RN) HYDROcodone-acetaminophen ([place]) 5-325 MG per tablet 10 mg of hydrocodone (COMPLETED)(Linked Group 1) 10 mg of hydrocodone, Oral, Once as needed, 1 dose, Starting on Sun12/12/24 at 1449, Until Sun12/12/24 at 1506, Routine, Recovery (Phase I only), pain score of 6-8 out of 10 1506 (Given - Provider: Nichelle Brumfield RN) HYDROmorphone (Dilaudid) injection 0.5 mg (COMPLETED) 0.5 mg, Intravenous, Every 10 min PRN, 2 doses, Starting on Sun12/12/24 at 1555, Until Sun12/12/24 at 1648, STAT, Recovery (Phase I only), severe pain, for pain scale 6-10 1605 (Given - Provider: Nichelle Brumfield, LEEANNE)1648 (Given - Provider: Nichelle Brumfield RN) ipratropium-albuterol (Duo-Neb) 0.5-2.5 mg/3 mL nebulizer solution 3 mL 3 mL, Nebulization, Once as needed, 1 dose, Starting on Sun12/12/24 at 1449, Until Sun12/13/24 at 0404, Routine, Recovery (Phase I only), shortness of breath naloxone (Narcan) injection 0.4 mg 0.4 mg, Intravenous, As needed, Starting on Sun12/12/24 at 1449, Until 12/13/24 at 0404, Routine, Recovery (Phase I only), respiratory depression ondansetron (Zofran) injection 4 mg (COMPLETED) 4 mg, Intravenous, Once as needed, 1 dose, Starting on Sun12/12/24 at 1449, Until Sun12/12/24 at 1722, Routine, Recovery (Phase I only), nausea, vomiting 1721 (Given - Provider: Nichelle Brumfield RN) sodium chloride 0.9 % flush 1 mL 1 mL, Intravenous, Every 8 hours PRN, Starting on Sun12/12/24 at 1101, Until 12/13/24 at 0404, Routine, On Unit - Preprocedure, line care Linked Groups Order Group 1: HYDROcodone-acetaminophen ([place]) 5-325 MG per tablet 5 mg of hydrocodone (COMPLETED) 5 mg of hydrocodone, Oral, Once as needed, 1 dose, Starting on Sun12/12/24 at 1449, Until Sun12/12/24 at 1506, Routine, Recovery (Phase I only), pain score of 3-5 out of 10 Or HYDROcodone-acetaminophen ([place]) 5-325 MG per tablet 10 mg of hydrocodone (COMPLETED)Jump to med 10 mg of hydrocodone, Oral, Once as needed, 1 dose, Starting on Sun12/12/24 at 1449, Until Sun12/12/24 at 1506, Routine, Recovery (Phase I only), pain score of 6-8 out of 10 documented in this encounter Additional Health Concerns Assessment Noted Time PHQ-9 Depression Total Score: 1 11/01/19 3:42 PM EDT A fall risk assessment has been complete d for the patient 11/20/2024 10:47 AM EDT A Body Mass Index follow-up plan has been documented for the patient 11/24/2024 3:18 PM EDT documented as of this encounter Care Teams Cytotechnologist Supervisor Relationship Specialty Start Date End Date Jatinder Clifford MD PCP - General Family Medicine 11/05/24 documented as of this encounter
--- OUTSIDE RECORDS SUMMARY | 2024-12-12 14:00 | XMS_ITS | Encounter Summary ---
Author Organization [facility] Address [address] [place] [address] Care Team Providers Care Herbicide Sprayer Name Role Phone Jatinder Clifford MD Primary Care Provider Samra vailable Reason for Visit * Auth/Cert (Routine) Specialty Diagnoses / Procedures Referred By Contliz t Referred To Contact Diagnoses Aphasia Aphasia Procedures NJ EDG PERCUTANEOUS PLACEMENT GASTROSTOMY TUBE NJ INSERT TUBE-BOWEL,ENTERAL ALIMENT NJ ESOPHAGOGASTRODUODENOSCOPY TRANSORAL DIAGNOSTIC LAP ASSITED PEG TUBE, EGD, POSSIBLE J TUBE LAP ASSITED PEG TUBE, EGD, POSSIBLE J TUBE LAP ASSITED PEG TUBE, EGD, POSSIBLE J TUBE Everett Beyer, DO [address] [address] Phone: tel: fax: [facility] [address] [place] [address] Phone: tel: Referral ID Status Reason Start Date Expiration Date Visits Re quested Visits Authorized [id number] 1 3 Encounter Details Date Type Department Care Team (Late st Contact Info) Description 12/12/2024 2:00 PM EDT - 12/12/2024 3:30 PM EDT Surgery [facility] [address] [place] [address] Everett Beyer, DO [address] [address] LAP ASSITED PEG TUBE, EGD, POSSIBLE J TUBE [49108 (CPT ) +2 more] Surgery Details Date/Time Status Location OR Service Patient Class Case Class Case Type Trauma Case? 12/12/2024 2:00 PM Posted [facility] Cardiothoracic [facility] Outpatient Surgery E-Elect emilia Panel 1 Procedure LRB Anes Op Region Wound Class Comments LAP ASSITED PEG TUBE, EGD, POSSIBLE J TUBE N/A General Surgeon Surgeon Role Service Panel Everett Beyer, DO Primary Cardiothoracic Surge ry 1 Brigido Dewey MD Resident - Assisting 1 documented in this encounter Social History Tobacco [...] any time in the past 12 m [facility], were you homeless or living in a fdc (including now)? No 10/28/2024 Utilities Answer Date Recorded In the past 12 months has [employer], gas, oil, or water [employer] threatened to shut off services in your home? No 10/28/2024 Sex and Gender Information Value Date Recorded Sex Assigned at Not on file Legal Sex Male 4:15 PM EDT Gender Identity Not on file Sexual Orientation Not on file documented as of this encounter Last Filed Vital Signs Vital Sign Reading Time Taken Comments Blood Pressure 140/73 12/12/2024 3:30 PM EDT Pulse 55 12/12/2024 3:30 PM EDT Temperature 36.7 C (98.1 F) 12/12/2024 3:06 PM EDT Respiratory Rate 14 12/12/2024 3:30 PM EDT Oxygen Saturation 99% 12/12/2024 3:30 PM EDT Inhaled Oxygen Concentration - - [...] Clinic discharge # - For urgent questions/concerns: [facility] hotline: , option 4 - ask for the thoracic surgeon marketing operations consultant. documented in this encounter Medications at Time [...] tablet by mouth daily. neomycin-polymyxin -dexamethasone (Maxitrol) 3.5-75341-9.[address] 1 DROP IN BOTH [...] 7 days. 5 tablet 12/12/2024 5 Boost [facility] (Boost) [facility] liquidIndications: Aphasia,Feeding difficulties Take 237 mL by mouth 3 times a day. 44173 mL 11/20/2024 5 documented as of this encounter Miscellaneous Notes [...] 5:49 PM EDT Signature only. * Viri More - Nichelle Brumfield RN - 12/12/2024 5:06 [...] Motrin Motrin Tylenol Tylenol Motrin Motrin * Atkinson - Everett Beyer, DO - 12/12/2024 2:20 PM EDT Operative Note Date: 12/12/24 Location: [facility] Name: Dino Cook : 1955, Diagnoses: Pre-op Diagnosis Dysphagia secondary to distal esophageal cancer Post-op Diagnosis same Procedure(s): EGD with Lap assisted peg tube placement Attending Surgeon(s): * Everett Beyer - Primary Home Restoration Service Supervisor(s): * Brigido Dewey MD - Resident - [...] the stomach was insufflated and a 20 [place] PEG tube was placed in the usual [...] 12/12/2024 2:20 PM EDT Date: 12/12/24 Location: [facility] Name: Dino Cook, : 1955, Diagnoses: Pre-op Diagnosis Aphasia Post-op Diagnosis Aphasia Procedure(s): EGD, Laparoscopic assisted PEG placement Attending Surgeon(s): * Everett Beyer - Primary Home Restoration Service Supervisor(s): * Brigido Dewey MD - Resident - [...] from the original note were not included. [facility] Department of Surgery Section of Thoracic Surgery [...] is no recent study available for direct vyxl-lv-hycb comparison. Assessment and Plan: Edwin Cook is [...] PET scan and PFTs (recent echocardiogram in [facility]) following completion of neoadjuvant therapy for surgical [...] 4:56 PM EDT Associated attestation - Everett Beyer, - 12/12/2024 4:56 PM EDT I saw and evaluated the patient with the resident/fellow. I discussed the case with the resident/fellow and agree with the findings and plan as documented. documented in this encounter Plan of Treatment Upcoming Encounters Date Type Department Care Team (Late st Contact Info) Description 06/10/2025 9:00 AM EST Office Visit [place] [facility] [address] [place] [address] Korey Fernandes MD [address] [place] [address] Scheduled Referrals Name Type Priority Associated Diagnoses Orde r Schedule Discharge Ambulatory referral to Thoracic Surgery Outpatient Referral Routine Feeding difficulties Expected: 12/25/2024, Expires: 06/15/2026 Ambulatory referral to [facility] Oncology Nutrition Outpatient Referral Routine Feeding difficulties 1 Occurrences starting 12/12/2024 until 06/14/2026 documented as of this encounter Procedures Procedure Name Priority Date/Time Associated Diagnosis Comments NJ ESOPHAGOGASTRODUODENOSCOP Y TRANSORAL DIAGNOSTIC 12/12/2024 1:50 PM EDT Aphasia NJ INSERT TUBE-BOWEL,ENTERAL ALIMENT 12/12/2024 1:50 PM EDT Aphasia NJ EDG PERCUTANEOUS PLACEMEN T GASTROSTOMY TUBE 12/12/2024 1:50 PM EDT Aphasia documented in this encounter Visit Diagnoses Diagnosis Feeding difficulties- Primary Feeding difficulties and mismanagement Aphasia documented in this encounter Administered Medications [...] 12/12/2024 3:16 PM EDT 50 mcg HYDROcodone-acetaminophen ([place]) 5-325 MG per tablet 10 mg of [...] (Given - Provider: Nichelle Brumfield RN) HYDROcodone-acetaminophen ([place]) 5-325 MG per tablet 10 mg of hydrocodone (COMPLETED)(Linked Group 1) 10 mg of hydrocodone, Oral, Once as needed, 1 dose, Starting on Sun12/12/24 at 1449, Until Sun12/12/24 at 1506, Routine, Recovery (Phase I only), pain score of 6-8 out of 10 1506 (Given - Provider: Nichelle Brumfield, LEEANNE) HYDROmorphone (Dilaudid) injection 0.5 mg (COMPLETED) 0.5 mg, Intravenous, Every 10 min PRN, 2 doses, Starting on Sun12/12/24 at 1555, Until Sun12/12/24 at 1648, STAT, Recovery (Phase I only), severe pain, for pain scale 6-10 1605 (Given - Provider: Nichelle Brumfield RN)1648 (Given - Provider: Nichelle Brumfield RN) ipratropium-albuterol [...] Routine, Recovery (Phase I only), nausea, vomiting 172 (Given - Provider: Nichelle Brumfield, LEEANNE) sodium chloride 0.9 % flush 1 mL 1 mL, Intravenous, Every 8 hours PRN, Starting on Sun12/12/24 at 1101, Until 12/13/24 at 0404, Routine, On Unit - Preprocedure, line care Linked Groups Order Group 1: HYDROcodone-acetaminophen ([place]) 5-325 MG per tablet 5 mg of hydrocodone (COMPLETED) 5 mg of hydrocodone, Oral, Once as needed, 1 dose, Starting on Sun12/12/24 at 1449, Until Sun12/12/24 at 1506, Routine, Recovery (Phase I only), pain score of 3-5 out of 10 Or HYDROcodone-acetaminophen ([place]) 5-325 MG per tablet 10 mg of [...] documented as of this encounter Care Teams Herbicide Sprayer Relationship Specialty Start Date End Date Jatinder Clifford MD PCP - General Family Medicine 11/05/24 documented as of this encounter
--- OUTSIDE RECORDS SUMMARY | 2024-12-12 14:05 | XMS_ITS | Encounter Summary ---
Author Organization [facility] Address [address] [place] [address] Care Team Providers Care Fiscal Clerk Name Role Phone Jatinder Clifford MD Primary Care Provider Samra vailable Reason for Visit * Auth/Cert (Routine) Specialty Diagnoses / Procedures Referred By Contac t Referred To Contact Diagnoses Aphasia Aphasia Procedures AL EDG PERCUTANEOUS PLACEMENT GASTROSTOMY TUBE AL INSERT TUBE-BOWEL,ENTERAL ALIMENT AL ESOPHAGOGASTRODUODENOSCOPY TRANSORAL DIAGNOSTIC LAP ASSITED PEG TUBE, EGD, POSSIBLE J TUBE LAP ASSITED PEG TUBE, EGD, POSSIBLE J TUBE LAP ASSITED PEG TUBE, EGD, POSSIBLE J TUBE Everett Beyer, DO [address] [address] Phone: tel: fax: [facility] [address] [place] [address] Phone: tel: Referral ID Status Reason Start Date Expiration Date Visits Re quested Visits Authorized [id number] 1 3 Encounter Details Date Type Department Care Team (Late st Contact Info) Description 12/12/2024 2:05 PM EDT Anesthesia Event [facility] [address] [place] [address] Ernesto Yung MD [address] [place] [address] Mireille Gaffney MD [address] [place] [address] Anesthesia Record Procedure Summary Procedure Name Responsible [...] acknowledgement of understanding. 1506 An Stop Meds Name Total Lidocaine HCl 100 MG/5ML 100 mg fentaNYL (Sublimaze) injection 50 mcg/mL 100 mcg propofol (Diprivan) injection 10 mg/mL 2 00 mg rocuronium (ZeMuron) injection 10 mg/mL 60 mg dexamethasone (Decadron) injection 4 mg/ mL 4 mg ondansetron (Zofran) injection 2 mg/mL 4 mg sugammadex (Bridion) injection 100 mg/mL 200 mg ceFAZolin (Ancef) vial 1 g 2 g lactated Ringer's infusion 1,400 mL * Agents Name O2 N2O Air Sevoflurane Isoflurane Desflurane Inspired Desflurane Inspired Isoflurane Inspired Sevoflurane N2O Inspired N2O * Blood No blood administrations on file. Lines, Drains, and Airways Type Details Placement Removal Wound 12/12/24; 1437; N; Y es; Surgical; Abdomen; Upper 12/12/24 1437 by Ricarda Alonso RN Peripheral IV Placement Date: 11/19 10/12; Placement Time: 1059; Catheter Size: 20 G; Orientation: Posterior, Right; Location: Hand; Site Prep: Chlorhexidine ; Local Anesth: [place]; Technique: Anatomical landmarks; Inserted by: Liana FALLON; Insertion Attempts: 1; Patient Tolerance: Tolerated well; Removal Date: 12/12/24; Removal Time: 1800 12/12/24 1059 by Ying Koenig RN 12/12/24 1800 by Nichelle Brumfield RN ETT Placement Date: 11/19 10/12; Placement Time: 1414 (created via procedure documentation); Mask Ventilation: 3; Technique: Direct laryngoscopy; Type: ETT - single; Single Lumen Tube Size: 8 mm; Cuffed: Yes; Laryngoscope: John; Blade Size: 3; Location: Oral; Grade View: Grade IIa; Insertion Attempts: 1; Placement Verification: Auscultation, Capnometry; Airway Comments: Atraumatic. No change to dentition. ; Placed by: SONDRA; Removal Date: 12/12/24; Removal Time: 145512/12/241414 by Gisel Siu CRNA 12/12/241455 by Gisel Siu CRNA documented in this encounter Social History Tobacco Use Types Packs/Day Years Used Date Smoking Tobacco: Former Cigarettes 3 33 1 967 - 1999 Passive Smoke Exposure: Past Smokeless Tobacco: Never [...] were you homeless or living in a intermediate (including now)? No 10/28/2024 Utilities Answer Date [...] Month) No 025 10:42 AM EDT Liana Sruesh 2. Non-Specific Active Suici isabel Thoughts (Past 1 Month) No 12/12/2024 10:42 AM EDT Liana Suresh 6. Suicidal Behavior (Lifetime) No 10:42 AM EDT Liana Suresh documented as of this encounter Miscellaneous Notes * Anesthesia Postprocedure Evaluation - Gisel Siu, SONDRA - 12/12/2024 3:08 PM EDT Patient: Dino Cook Anesthesia Type: general Vitals Value Taken Time BP 155/111 12/12/24 15:08 Temp 98.1 12/12/24 15:08 Pulse 59 12/12/24 15:08 Resp 14 12/12/24 15:08 SpO2 99% 12/12/24 15:08 Anesthesia Post Evaluation Patient location during evaluation: PACU Patient participation: complete - patient participated Level of consciousness: awake Pain management: adequate (pain score 0-3) Airway patency: natural airway Cardiovascular status: acceptable and hemodynamically stable Respiratory status: acceptable, blow-by oxygen, spontaneous ventilation and unassisted Hydration status: acceptable Nausea/Vomiting: No No notable events documented. * Anesthesia Procedure Notes - Gisel Siu CRNA - 12/12/2024 2:25 PM EDT Associated Order(s): Airway Airway Date/Time: 12/12/2024 2:15 PM Reason: elective Airway not difficult General Information and Staff Patient location during procedure: OR ASSISTANT COACH: Gisel Siu CRNA Performed: ASSISTANT COACH Patient Condition Indications for airway management: anesthesia Patient position: neutral due to patients range of motion. Final Airway Details Final airway type: endotracheal airway Successful airway: ETT Cuffed: yes Successful intubation technique: direct laryngoscopy Adjuncts used in placement: intubating stylet Endotracheal tube insertion site: oral Blade: John Blade size: #3 ETT size (mm): 8.0 Cormack-Lehane Classification: grade IIa - partial view of glottis Placement verified by: chest auscultation and capnometry Measured from: lips ETT to lips (cm): 23 Additional Comments Atraumatic. No change to dentition. * Anesthesia Preprocedure Evaluation - Mireille Gaffney MD - 12/11/2024 4:32 PM EDT Images from the original note were not included. HPI Edwin Cook is a 69 y.o. male who presents with Pre-op Diagnosis * Aphasia [R47.01] now scheduled for LAP ASSITED PEG TUBE, EGD, POSSIBLE J TUBE (N/A) with Everett Beyer DO on 12/12/2024 in [facility], GERD, [place], newly diagnosed Esophageal Cancer in October 2024, Hypothyroidism, tobacco use disorder, obesity and recent TIA. Admitted to 10/25-10/27/2024 with a TIA. He was found to have a chronic right parietal infarct, mechanism unknown with high clinical suspicion for cardioembolic source. A cardiac event monitor was placed at discharge to screen for WFand EP cardiology follow up is scheduled for 01/21/2025. He started DAPT x 21 days with aspirin and plavix in addition to crestor for secondary prevention of stroke. After 21 days, will d/c plavix and continue aspirin/statin only. Past Medical History[1] Family History[2] Social History[3] quit smoking 25 years, social etoh, denies illlicit drugs Surgical History[4] back surgery x 4, egd/dilations, coloncopy Allergies[5] nkda MEDICATIONS: Current Medications[6] ROS Anesthesia: Date of last anesthetic: EGD 10/2024. Lumbar Spine surgery 3-4 yr ago history of previous anesthesia and obstructive sleep apnea (home CPAP). Does not have a history of anesthetic complications, malignant hyperthermia and PONV. Cardiovascular: dysrhythmias (SVT on patch montior) and hyperlipidemia. Does not have CAD, CHF, dyspnea, murmur, pacemaker, past NM or syncope. hypertension: Exercise tolerance is 2 flights of stairs. Does not have chest pain. Cardio additional [...] cerebrovascular accident (chronic ischemic infarct right MCA territory. CVA was end of october) with no residual symptoms.TIA (10/25/24). Musculoskeletal: cervical spine limited mobility (s/p surgery). Musc/Skel/Integ additional comments: DDD lumbar spine s/p back surgery x 4 Left arm and hand decreased ability to use Autoimmune: Does not have lupus or rheumatoid arthritis. Gastrointestinal: GERD (currently does not take medication and having sx):inflammatory bowel disease (sx age age 49's. Treated with steroids initially then biologics. Now in remission. No treatment since ~ 2017.Follows with GI): Crohn disease. esophageal stricture and GI malignancy. Does not have cirrhosis or [...] or tuberculosis. Hem/Lymph ROS additional comments: ASA 81mg daily for CVA/Stroke hx Endocrine/Metabolic: does not [...] is no recent study available for direct baks-do-qvxm comparison. 10/27/24 14 day Patch Monitor: PHYSICIAN [...] kg/m2 BSA (m2) 2.36 m2 Physical Exam Airway Mallampati: II Mouth opening: normal TM distance: >3 FB Neck ROM: limited Cardiovascular Rhythm: regular Rate: normal Dental (+) edentulous Pulmonary Breath sounds clear to auscultation Neurological Oriented: normal to time, normal to person and normal to place Skin Musculoskeletal Extremities Anesthesia Plan ASA 3 Plan was reviewed with: ASSISTANT COACH Anesthesia technique(s) discussed with the patient/family: general Anesthesia plan agreed upon was: general Comment: JONI Phone screen. Anesthetic plan and risks discussed with patient. Use of blood products discussed with patient who. Mireille Gaffney MD [1] Past Medical History: Diagnosis Date Esophageal cancer ([facility]) Hypothyroidism Sleep apnea Stroke ([facility]) 10/25/2024 [2] Family History Problem Relation Name Age of Onset Lung cancer Father Anesthesia problems Neg Hx Malig Hyperthermia Neg Hx [3] Social History Tobacco Use Smoking status: Former Current packs/day: 0.00 Average packs/day: 3.0 packs/day for 33.0 years (99.0 ttl pk-yrs) Types: Cigarettes Start date: 1966 Quit date: 1999 Years since quittin.5 Passive exposure: Past Smokeless tobacco: Never Vaping Use Vaping status: Never Used Substance Use Topics Alcohol use: Not Currently Comment: 1-2 servings weekly Drug use: Never [4] Past Surgical History: Procedure Laterality Date BACK SURGERY x4 SKIN CANCER EXCISION x2 [5] No Known Allergies [6] No current facility-administered medications for this encounter. Current Outpatient Medications: armodafinil, Take 1 tablet [...] losartan, Take 1 tablet by mouth daily. potassium chloride CR, Take 1 tablet by mouth daily. Do not crush, chew, or split. rosuvastatin, Take 1 tablet by mouth daily. tamsulosin, TAKE 1 CAPSULE 1 TIME EACH DAY FOR PROSTATE documented in this encounter Plan of Treatment Upcoming Encounters Date Type Department Care Team (Late st Contact Info) Description 06/10/2025 9:00 AM EST Office Visit [place] [facility] [address], [address] [place] [address] Korey Fernandes MD [address] [facility] [address] [place] [address] documented as of this encounter Procedures Procedure Name Priority Date/Time Associated Diagnosis Comments PB ANESTHESIA PLACEHOLDER Routine 12/12/2024 2:15 PM EDT AL AN ELECTIVE ENDOTRACHEAL AIRWAY Routine 12/12/2024 2:15 PM EDT documented in this encounter Results * AL AN ELECTIVE ENDOTRACHEAL AIRWAY, PB ANESTHESIA PLACEHOLDER (12/12/2024 2:15 PM EDT) Narrative Giesl Siu CRNA - 12/12/2024 2:15 PM EDT Gisel Siu CRNA 12/12/2024 2:27 PM Airway Date/Time: 12/12/2024 2:15 PM Reason: elective Airway not difficult General Information and Staff Patient location during procedure: OR ASSISTANT COACH: Gisel Siu CRNA Performed: ASSISTANT COACH Patient Condition Indications for airway management: anesthesia Patient position: neutral due to patients range of motion. Final Airway Details Final airway type: endotracheal airway Successful airway: ETT Cuffed: yes Successful intubation technique: direct laryngoscopy Adjuncts used in placement: intubating stylet Endotracheal tube insertion site: oral Blade: John Blade size: #3 ETT size (mm): 8.0 Cormack-Lehane Classification: grade IIa - partial view of glottis Placement verified by: chest auscultation and capnometry Measured from: lips ETT to lips (cm): 23 Additional Comments Atraumatic. No change to dentition. us Ernesto Yung MD ANESTHESIA ORDERABLES Edited R esult - Final documented in this encounter Visit Diagnoses Not on filedocumented in this encounter Administered Medications Inactive Administered Medications - up to 3 most recent administrations Medication Order MAR Action Action Date Dose Rate Site ceFAZolin (Ancef) injection Intravenous, As needed, Starting on Sun12/12/24 at 1422, Until Sun12/12/24 at 1508, Routine, Anesthesia Intraprocedure Given 12/12/2024 2:22 PM EDT 2 g dexamethasone (Decadron) injection Intravenous, As needed, Starting on Sun12/12/24 at 1416, Until Sun12/12/24 at 1508, Routine, Anesthesia Intraprocedure Given 12/12/2024 2:16 PM EDT 4 mg fentaNYL (Sublimaze) injection Intravenous, As needed, Starting on Sun12/12/24 at 1409, Until Sun12/12/24 at 1508, Routine, Anesthesia Intraprocedure Given 12/12/2024 2:52 PM EDT 25 mcg Given 12/12/2024 2:47 PM EDT 25 mcg Given 12/12/2024 2:09 PM EDT 50 mcg lactated Ringer's infusion Intravenous, Continuous PRN, Starting on Sun12/12/24 at 1405, Until Sun12/12/24 at 1508, Routine New Bag 12/12/2024 2:05 PM EDT Lidocaine HCl prefilled syringe Buccal, As needed, Starting on Sun12/12/24 at 1410, Anesthesia Intraprocedure Given 12/12/2024 2:10 PM EDT 100 mg ondansetron (Zofran) injection Intravenous, As needed, Starting on Sun12/12/24 at 1439, Until Sun12/12/24 at 1508, Routine, Anesthesia Intraprocedure Given 12/12/2024 2:39 PM EDT 4 mg propofol (Diprivan) injection Intravenous, As needed, Starting on Sun12/12/24 at 1410, Until Sun12/12/24 at 1508, Routine, Anesthesia Intraprocedure Given 12/12/2024 2:13 PM EDT 60 mg Given 12/12/2024 2:10 PM EDT 140 mg rocuronium (ZeMuron) injection Intravenous, As needed, Starting on Sun12/12/24 at 1413, Until Sun12/12/24 at 1508, Routine, Anesthesia Intraprocedure Given 12/12/2024 2:13 PM EDT 60 mg sugammadex (Bridion) 100 MG/ML injection Intravenous, As needed, Starting on Sun12/12/24 at 1444, Until Sun12/12/24 at 1508, Routine, Anesthesia Intraprocedure Given 12/12/2024 2:44 PM EDT 200 mg documented in this encounter Additional Health Concerns Assessment Noted Time PHQ-9 Depression Total Score: 1 11/01/19 3:42 PM EDT A fall risk assessment has been complete d for the patient 11/20/2024 10:47 AM EDT A Body Mass Index follow-up plan has been documented for the patient 11/24/2024 3:18 PM EDT documented as of this encounter Care Teams Fiscal Clerk Relationship Specialty Start Date End Date Jatinder Clifford MD PCP - General Family Medicine 11/05/24 documented as of this encounter
--- OUTSIDE RECORDS SUMMARY | 2024-12-25 14:30 | XMS_ITS | Encounter Summary ---
Author Organization [facility] Address [address] [place] [address] Care Team Providers Care Wind Commissioning Technician Name Role Phone Jatinder Clifford MD Primary Care Provider Samra vailable Reason for Visit * Reason Comments Follow-up Post-op * Consultation (Routine) - Closed Specialty Diagnoses / Procedures Referred By Lito sibley Referred To Contact Cardiothoracic Surgery Diagnoses Feeding difficulties Casandra Rodríguez, MATERIALS SUPERVISOR [address] [place] [address] Phone: tel: fax: Cardiothoracic Surgery [address] [place] [address] Phone: tel: Referral ID Status Reason Start Date Expiration Date V isits Requested Visits Authorized [id number] Closed Specialty Services Required 12/12/2024 06/13/2026 1 1 Encounter Details Date Type Department Care Team ([facility] st Contact Info) Description 12/25/2024 2:30 PM EDT Office Visit Pav CC Head, Neck & Respiratory [address] [facility], 2nd [place] [address] Everett Beyer, DO [address] [address] Feeding difficulties (Primary Dx); Aphasia Social History Tobacco Use Types Packs/Day Years [...] any time in the past 12 m [facility], were you homeless or living in a fci (including now)? No 10/28/2024 Utilities Answer Date Recorded In the past 12 months has th e [employer], gas, oil, or water company threatened to shut off services in your home? No 10/28/2024 Sex and Gender Information Value Date Recorded Sex Assigned at Not on file Legal Sex Male 4:15 PM EDT Gender Identity Not on file Sexual Orientation Not on file documented as of this encounter Last Filed Vital Signs Vital Sign Reading Time Taken Comments Blood Pressure 116/68 12/25/2024 2:57 PM EDT Pulse 71 12/25/2024 2:57 PM EDT Temperature 36.6 C (97.9 F) 12/25/2024 2:57 PM EDT Respiratory Rate 16 12/25/2024 2:57 PM EDT Oxygen Saturation 95% 12/25/2024 2:57 PM EDT Inhaled Oxygen Concentration - - Weight 110 kg (242 lb 4.6 oz) 12/25/2024 2:57 PM EDT Height 182.9 cm (6') 12/25/2024 2:57 PM EDT Body Mass Index 32.86 12/25/2024 2:57 PM EDT documented in this encounter Miscellaneous Notes * Progress Notes - Joselin Mullins PA - 12/25/2024 2:30 PM EDT Images from the original note were not included. [facility] Department of Surgery Section of Thoracic Surgery Outpatient Clinic Note Diagnosis: esophageal cancer Procedure: EGD lap assisted PEG 12/12/24 Interval History: Edwin Cook is a 69 y.o. male with PMH recent TIA, Crohn's Disease (no meds), JUAN DIEGO, HLD, GERD, tobacco abuse, obesity and recently diagnosed esophageal cancer who is s/p PEG placement for dysphagia on 12/12/24. He recently had a PET scan on 12/03/24 with no evidence of metastasis.He is starting chemorads next week. Using his PEG tube for feeds with no issues. Dysphagia has progressed and he is now having difficulty with water. No fevers, abdominal pain, n/v. ROS: General: no fevers or chills, no heat or cold intolerance, no subjective weight loss HEENT: no changes in vision, no sore throat, no changes in hearing, no tinnitus, no nasal drainage CV: no chest pain, no palpitations, no lightheadedness, no PND, no orthopnea, no LE swelling, no claudication Pulm: no shortness of breath, no cough, no hemoptysis GI: See HPI Skin: no rash Neuro: no numbness, no tingling, no headache, no difficulties with speech, no gait disturbance Heme: no easy bruising, no bleeding from the gums Endo: No polyuria or polydypsia Psych: no depression or anxiety Physical exam: Visit Vitals BP 116/68 (BP Location: Left arm, Patient Position: Sitting, BP Cuff Size: Adult long) Pulse 71 Temp 36.6 ??C (97.9 ??F) (Oral) Ht 1.829 m (6') Wt 110 kg (242 lb 4.6 oz) SpO2 95% BMI 32.86 kg/m?? General: alert and oriented, appropriate Lungs: CTA B, no wheezes or rhonchi Heart: RRR, no murmurs Abdomen: soft NT/ND, normal bowel sounds Lymph nodes: no palpable supraclavicular or cervical adenopathy Extremities: no peripheral edema Skin: no rash, no cyanosis and warm to touch Psychiatric: oriented to person/place/time and normal mood/affect Incisions: PEG site CDI; sutures removed Imaging: none Additional Testing: None Assessment and Plan: Edwin Cook is a 69 y.o. male with PMH recent TIA, Crohn's Disease (no meds), JUAN DIEGO, HLD, GERD, tobacco abuse, obesity and recently diagnosed esophageal cancer who is s/p PEG placement for dysphagiaon 12/12/24. PET scan with no evidence of distant metastasis. He will be starting chemorads w/ Dr. Ovalle next week. Using PEG for feeds with no issue. Reviewed hygiene and had dieticians review nutritio n recommendations. He will return to clinic about 3 weeks after completion of chemorads with restaging PET and PFTs. YASMANY Perrin 12/25/24 3:04 PM Cosigned by Everett Beyer DO at 12/26/2024 11:55 AM EDT Associated attestation - Everett Beyer DO - 12/26/2024 11:55 AM EDT I attest to being involved in more than half the total time in patient care. documented in this encounter Plan of Treatment Upcoming Encounters Date Type Department Care Team (Late st Contact Info) Description 06/10/2025 9:00 AM EST Office Visit [place] [facility] [address], [address]st [place] [address] Korey Fernandes MD [address] [place] [address] documented as of this encounter Visit Diagnoses Diagnosis Feeding difficulties- Primary Feeding difficulties and mismanagement Aphasia documented in this encounter Additional Health Concerns Assessment Noted Time PHQ-9 Depression Total Score: 1 11/01/19 3:42 PM EDT A fall risk assessment has been complete d for the patient 12/25/2024 2:57 PM EDT A Body Mass Index follow-up plan has been documented for the patient 12/26/2024 11:55 AM EDT documented as of this encounter Care Teams Wind Commissioning Technician Relationship Specialty Start Date End Date Jatinder Clifford MD PCP - General Family Medicine 11/05/24 documented as of this encounter
--- OUTSIDE RECORDS SUMMARY | 2025-01-28 09:14 | XMS_ITS | Encounter Summary ---
Author Organization [facility] Address [address] [place] [address] Care Team Providers Care Drying Unit Felting Machine Operator Name Role Phone Pcp, No Primary Care Provider Marzena Sullivan LPN Unavailable Jatinder Samuel MD Primary Care Provider Samra vailable Encounter Details Date Type Department Care Team (Late st Contact Info) Description 10/25/2024 Orders Only External Location [address] [place] [address] Provider, External Social History Tobacco Use Types [...] any time in the past 12 m [facility], were you homeless or living in a prison (including now)? No 10/28/2024 Utilities Answer Date [...] Visit [place] [facility] [address], [address]st [place] [address] Korey Fernandes MD [address] [place] [address] documented as of this encounter Procedures Procedure Name Priority Date/Time Associated Diagnosis Comments CT NEURO OUTSIDE IMAGES 10/25/2024 2:55 PM EDT documented in this encounter Results * CT NEURO OUTSIDE IMAGES (10/25/2024 2:55 PM EDT) Anatomical Region Laterality Modality Computed Tomogra phy 10/25/2024 2:55 PM EDT us External Provider IMG CT PROCEDURES Final Result documented in this encounter Visit Diagnoses Not on filedocumented in this encounter Additional Health Concerns Assessment Noted Time A Body Mass Index follow-up plan has been documented for the patient 10/27/2024 3:35 PM EDT documented as of this encounter Care Teams Drying Unit Felting Machine Operator Relationship Specialty Start Date End Date Pcp, No [address] [place] [address] PCP - General Family Medicine 09/26/24 11/04/24 Jatinder Clifford MD PCP - General Family Medicine 11/05/24 Marzena Sosa LPN [facility] TCM Nurse 10/28/24 11/27/24 documented as of this encounter
--- OUTSIDE RECORDS SUMMARY | 2025-01-28 09:14 | XMS_ITS | Encounter Summary ---
Author Organization [facility] Address [address] [place] [address] Care Team Providers Care Form Worker Name Role Phone Pcp, No Primary Care Provider Marzena Sullivan LPN Unavailable Jatinder Samuel MD Primary Care Provider Samra vailable Encounter Details Date Type Department Care Team (Late st Contact Info) Description 10/25/2024 Orders Only External Location [address] [place] [address] Provider, External Social History Tobacco Use Types [...] Visit [place] [facility] [address], [address]st [place] [address] Korey Fernandes MD [address] [place] [address] documented as of this encounter Procedures Procedure Name Priority Date/Time Associated Diagnosis Comments CT NEURO OUTSIDE IMAGES 10/25/2024 2:52 PM EDT documented in this encounter Results * CT NEURO OUTSIDE IMAGES (10/25/2024 2:52 PM EDT) Anatomical Region Laterality Modality Computed Tomogra phy 10/25/2024 2:52 PM EDT us External Provider IMG CT PROCEDURES Final Result documented in this encounter Visit Diagnoses Not on filedocumented in this encounter Additional Health Concerns Assessment Noted Time A Body Mass Index follow-up plan has been documented for the patient 10/27/2024 3:35 PM EDT documented as of this encounter Care Teams Form Worker Relationship Specialty Start Date End Date Pcp, No [address] [place] [address] PCP - General Family Medicine 09/26/24 11/04/24 Jatinder Clifford MD PCP - General Family Medicine 11/05/24 Marzena Sosa LPN [facility] TCM Nurse 10/28/24 11/27/24 documented as of this encounter
--- OUTSIDE RECORDS SUMMARY | 2025-01-28 09:14 | XMS_ITS | Encounter Summary ---
Author Organization [facility] Address [address] [place] [address] Care Team Providers Care Assessment Clinician Name Role Phone Jatinder Clifford MD Primary Care Provider Samra vailable Encounter Details Date Type Department Care Team (Late st Contact Info) Description 12/05/2024 Orders Only Ch Radiology Virtual Dept. [address] [place] [address] Mata Reed MD [address] [place] [id number] Social History Tobacco Use Types Packs/Day Years Used Date Smoking Tobacco: Former Cigarettes 3 [phone] - 2000 Passive Smoke Exposure: Past Alcohol [...] any time in the past 12 m [facility], were you homeless or living in a custodial (including now)? No 10/28/2024 Utilities Answer Date [...] [address], [address]st [place] [address] Korey Fernandes MD [address] [place] [address] documented as of this encounter [...] documented as of this encounter Care Teams Assessment Clinician Relationship Specialty Start Date End Date Jatinder Clifford MD PCP - General Family Medicine 11/05/24 documented as of this encounter
--- OUTSIDE RECORDS SUMMARY | 2025-01-28 09:14 | XMS_ITS | Encounter Summary ---
Author Organization [facility] Address [address] [place] [address] Care Team Providers Care Food Sampler Name Role Phone Jatinder Clifford MD Primary Care Provider Samra vailable Encounter Details Date Type Department Care Team (Late st Contact Info) Description 12/09/2024 Telephone Pav CC Head, Neck & Respiratory [address] [place] [address] Marsha Ellsworth RN [facility] Social History Tobacco Use Types Packs/Day Years Used Date Smoking Tobacco: Former Cigarettes 3 33 1 057 - 2000 Passive Smoke Exposure: Past Alcohol [...] any time in the past 12 m [facility], were you homeless or living in a [...] as of this encounter Miscellaneous Notes * Telephone Encounter - Marsha Ellsworth RN - 12/09/2024 1:55 PM EDT RN spoke to pt. Went over surgery education for pt re: date of surgery, call expected for arrival time, npo status at midnight before surgery date, medications to hold and when, parking, registration. Pt verbalized understanding and agreeable to plan. documented in this encounter Plan of Treatment Upcoming Encounters Date Type Department Care Team (Late st Contact Info) Description 06/10/2025 9:00 AM EST Office Visit [place] [facility] [address], [address]st [place] [address] Korey Fernandes MD [address] [place] [address] documented as of this encounter Visit Diagnoses [...] documented as of this encounter Care Teams Food Sampler Relationship Specialty Start Date End Date Jatinder Clifford MD PCP - General Family Medicine 11/05/24 documented as of this encounter
--- OUTSIDE RECORDS SUMMARY | 2025-01-28 09:14 | XMS_ITS | Encounter Summary ---
Author Organization [facility] Address [address] [place] [address] Care Team Providers Care Tarp Repairer Name Role Phone Jatinder Clifford MD Primary Care Provider Samra vailable Encounter Details Date Type Department Care Team (Late st Contact Info) Description 12/12/2024 Nutrition Pav CC Head, Neck & Respiratory [address] [facility], [address]nd [place] [address] Social History Tobacco Use Types Packs/Day Years [...] the past 12 months has th e [employer], gas, oil, or water company threatened to [...] as of this encounter Miscellaneous Notes * Clinician Note - Candie Beyer RD - 12/12/2024 3:20 PM EDT Nutrition Follow Up Note: Referral Source: [facility] Wt Readings from Last 3 Encounters: 12/12/24 110 kg (242 lb) 12/10/24 110 kg (242 lb) 11/20/24 119 kg (262 lb 5.6 oz) Estimated body mass index is 32.82 kg/m?? as calculated from the following: Height as of an earlier encounter on 12/12/24: 1.829 m (6'). Weight as of an earlier encounter on 12/12/24: 110 kg (242 lb). Chart reviewed. Pt established with [facility] last visit 11/20. Pt had PEG placed. Visited pt and spousein PACU. Pt with poor intake d/t odynphagia and dysphagia. Only doing liquids. Pt has Boost VHC at home. If wt is accurate, pt with loss of 20 lbs, 7.6% BW x 3 weeks. Nutrition Intervention Discussed overall caloric needs. Goal of at least 2000 kcal given. Since pt has Boost VHC, will use that to feed for now. Discussed need for 4 Boost VHC via tube to provide 2120 kcal, and additional 88 g/pro and 636 ml/h2o. Flush additional 1300 - 1400 ml/day. PEG tube and use. Discussed washing hands prior to using tube. Discussed flushing tube with room temperature water daily regardless of whether or not pt is using tube to feed. Discussed flushing room temperature water before and after formula. Discussed need to sit up during feeding and for at least 30 minutes after. Encouraged walking around after feeds. Discussed different ways to feed, including with gravity bag vs syringe. DME Discussed different formulas. Will f/u as available and send referral. Nutrition education provided: [employer] Feeding Resource Guide RD contact information provided. Encouraged to contact as needed for nutrition- related questions and concerns. RD remains available PRN. documented in this encounter Plan of Treatment Upcoming Encounters Date Type Department Care Team (Late st Contact Info) Description 06/10/2025 9:00 AM EST Office Visit [place] [facility] [address], [address] [place] [address] Korey Fernandes MD [address] [place] [address] documented as of this encounter [...] documented as of this encounter Care Teams Tarp Repairer Relationship Specialty Start Date End Date Jatinder Clifford MD PCP - General Family Medicine 11/05/24 documented as of this encounter
--- OUTSIDE RECORDS SUMMARY | 2025-01-28 09:14 | XMS_ITS | Encounter Summary ---
Author Organization [facility] Address [address] [place] [address] Care Team Providers Care Blend Plant Operator Name Role Phone Jatinder Clifford MD Primary Care Provider Samra vailable Encounter Details Date Type Department Care Team (Latest Contact Info) Description 12/12/2024 Travel Social History Tobacco Use Types Packs/Day [...] any time in the past 12 m [facility], were you homeless or [...] Month) No 025 10:42 AM EDT Liana uSresh 2. Non-Specific Active Suici isabel Thoughts (Past 1 Month) No 12/12/2024 10:42 AM EDT Liana Suresh 6. Suicidal Behavior (Lifetime) No 10:42 AM EDT Liana Suresh documented as of this encounter Plan of Treatment Upcoming Encounters Date Type Department Care Team (Late st Contact Info) Description 06/10/2025 9:00 AM EST Office Visit [place] [facility] [address], [address]st [place] [address] Korey Fernandes MD [address] [place] [address] documented as of this encounter [...] documented as of this encounter Care Teams Blend Plant Operator Relationship Specialty Start Date End Date Jatinder Clifford MD PCP - General Family Medicine 11/05/24 documented as of this encounter
--- OUTSIDE RECORDS SUMMARY | 2025-01-28 09:14 | XMS_ITS | Encounter Summary ---
Author Organization [facility] Address [address] [place] [address] Care Team Providers Care Prop Maker Name Role Phone Jatinder Clifford MD Primary Care Provider Samra vailable Encounter Details Date Type Department Care Team (Latest Contact Info) Description 12/10/2024 Travel Social History Tobacco Use Types Packs/Day [...] any time in the past 12 m [facility], were you homeless or living in [...] Visit [place] [facility] [address], [address]st [place] [address] Korey Fernandes MD [address] [place] [address] documented as of this encounter [...] documented as of this encounter Care Teams Prop Maker Relationship Specialty Start Date End Date Jatinder Clifford MD PCP - General Family Medicine 11/05/24 documented as of this encounter
--- OUTSIDE RECORDS SUMMARY | 2025-01-28 09:14 | XMS_ITS | Encounter Summary ---
Author Organization [facility] Address [address] [place] [address] Care Team Providers Care Community Outreach Coordinator Name Role Phone Jatinder Clifford MD Primary Care Provider Samra vailable Encounter Details Date Type Department Care Team (Late st Contact Info) Description 12/16/2024 Telephone Psych Oncology [address] [place] [address] Social History Tobacco Use [...] the past 12 months has th e [employer], gas, oil, or water company threatened to shut off services in your home? No 10/28/2024 Sex and Gender Information Value Date Recorded Sex Assigned at Not on file Legal Sex Male 4:15 PM EDT Gender Identity Not on file Sexual Orientation Not on file documented as of this encounter Miscellaneous Notes * Telephone Encounter - Candie Beyre, RD - 12/16/2024 10:44 AM EDT Reason for call: PEG f/u Wt Readings from Last 3 Encounters: 12/12/24 110 kg (242 lb) 12/10/24 110 kg (242 lb) 11/20/24 119 kg (262 lb 5.6 oz) Estimated body mass index is 32.82 kg/m?? as calculated from the following: Height as of 12/12/24: 1.829 m (6'). Weight as of 12/12/24: 110 kg (242 lb). Call details: Pt had PEG placed 12/12. Visited in PACU for TF recommendations and PEG teaching. Called pt for f/u. Pt reports he was not able to feed much Sunday d/t post-op pain and constipation. Pt took stool softeners and laxative which resolved constipation. On Sunday pt was able to get in 3 cartons Boost C and tolerated w/o issue. Sunday pt got in 4 cartons w/o issues. Would like to continue with BoostVHC. Feeding with gravity bags. State he is mixing 16 oz (473 ml) of water with formula and then flushing ~ 80 ml after each feed. Getting 2848 ml/h2o. Talks about how urine is light yellow/clear forthe first time in a few weeks. States he is feeling better. Pt unable to tolerate PO intake. EN sole source of nutrition. Pt mentions reading notes in charts and talks about how recommendations were helpful. Nutrition Intervention Referral to DME [email or web address]. New orders entered for Boost [facility] QID and EN supplies and faxed to [facility]. Provides 2120 kcal, 88 g/pro and 636 ml/h2o. Discussed fluid needs. Talked about mixing Boost with 12 oz fluid and continuing current flushes. Will provide 1740 ml/flushes, 2376 ml total/day. Patient referred to [employer] ([facility] - [phone]) by [facility] Dietitian. RD contact information provided. Encouraged to contact as needed for nutrition- related questions and concerns. RD remains available PRN. documented in this encounter Plan of Treatment Upcoming Encounters Date Type Department Care Team (Late st Contact Info) Description 06/10/2025 9:00 AM EST Office Visit [place] [facility] [address], [address] [place] [address] Korey Fernandes MD [address] [place] [address] documented as of this encounter Visit Diagnoses [...] documented as of this encounter Care Teams Community Outreach Coordinator Relationship Specialty Start Date End Date Jatinder Clifford MD PCP - General Family Medicine 11/05/24 documented as of this encounter
--- OUTSIDE RECORDS SUMMARY | 2025-01-28 09:14 | XMS_ITS | Encounter Summary ---
Author Organization [facility] Address [address] [place] [address] Care Team Providers Care It Field Technician Name Role Phone Pcp, No Primary Care Provider UnavailMarzena Elliott LPN Unavailable UnavailJatinder Morrison MD Primary Care Provider Samra vailable Encounter Details Date Type Department Care Team (Late st Contact Info) Description 10/25/2024 Orders Only External Location [address] [place] [address] Kendra Ayon, DO [address] [place] [address] Social History Tobacco Use Types Packs/Day Years [...] any time in the past [address] [facility], were you homeless or living in a [facility] (including now)? No 10/28/2024 Utilities Answer Date [...] Suicidal Behavior (Lifetime) No 8:00 AM Renu Means, RN documented as of this encounter Plan of Treatment Upcoming Encounters Date Type Department Care Team (Late st Contact Info) Description 06/10/2025 9:00 AM EST Office Visit [place] [facility] [address], [address]st [place] [address] Korey Fernandes MD [address] [place] [address] documented as of this encounter Procedures Procedure Name Priority Date/Time Associated Diagnosis Comments CT ANGIO HEAD 10/25/2024 2:55 PM EDT documented in this encounter Results * CT Angio Head (10/25/2024 2:55 PM EDT) Anatomical Region Laterality Modality [place] [facility] [place] Computed Tomogr aphy 10/25/2024 2:55 PM EDT us Kendra N Gabo ARRIOLA IMG CT PROCEDURES Final Result documented in this encounter Visit Diagnoses Not on filedocumented in this encounter Additional Health Concerns Assessment Noted Time A Body Mass Index follow-up plan has been documented for the patient 10/27/2024 3:35 PM EDT documented as of this encounter Care Teams It Field Technician Relationship Specialty Start Date End Date Pcp, No [address] [place] [address] PCP - General Family Medicine 09/26/24 11/04/24 Jatinder Clifford MD PCP - General Family Medicine 11/05/24 Marzena Sosa LPN [facility] TCM Nurse 10/28/24 11/27/24 documented as of this encounter
--- OUTSIDE RECORDS SUMMARY | 2025-01-28 09:14 | XMS_ITS | Encounter Summary ---
Author Organization Healthcare Address [address] [place] [address] Care Team Providers Care Human Resources Technician Name Role Phone Jatinder Clifford MD Primary Care Provider Samra vailable Encounter Details Date Type Department Care Team (Late st Contact Info) Description 12/03/2024 Orders Only External Location [address] [place] [phone] Provider, External Social History Tobacco Use Types Packs/Day Years Used Date Smoking Tobacco: Former Cigarettes 3 33 1 757 - 2000 Passive Smoke Exposure: Past Alcohol [...] any time in the past 12 m [facility], were you homeless or living in [...] Visit [place] [facility] [address], [address] [place] [address] Korey Fernandes MD [address] [place] [address] documented as of this encounter Procedures Procedure Name Priority Date/Time Associated Diagnosis Comments PET OUTSIDE IMAGES 12/03/2024 11:55 AM EDT documented in this encounter Results * PET OUTSIDE IMAGES (12/03/2024 11:55 AM EDT) Anatomical Region Laterality Modality Nuclear Medicine 12/03/2024 11:5 5 AM EDT External Provider IMG NM PROCEDURES Final Result documented in this encounter [...] documented as of this encounter Care Teams Human Resources Technician Relationship Specialty Start Date End Date Jatinder Clifford MD PCP - General Family Medicine 11/05/24 documented as of this encounter
--- OUTSIDE RECORDS SUMMARY | 2025-01-28 09:14 | XMS_ITS | Encounter Summary ---
Author Organization Healthcare Address [address] [place] [address] Care Team Providers Care Chemical Laboratory Scientist Name Role Phone Marzena Sosa LPN Unavailable UnavailJatinder Morrison MD Primary Care Provider Samra vailable Encounter Details Date Type Department Care Team (Late st Contact Info) Description 11/12/2024 Lab Requisition [facility] [address] [place] [address] Everett Beyer, DO [address] [phone] Dysphagia, unspecified Social History Tobacco Use Types Packs/Day Years Used Date Smoking Tobacco: Former Cigarettes 3 33 1 143 - 2000 Passive Smoke Exposure: Past Alcohol [...] any time in the past 12 m [facility], were you homeless or living [...] [address], 1st [place] [address] Korey Fernandes MD [address] [place] [address] documented as of this encounter Procedures Procedure Name Priority Date/Time Associated Diagnosis Comments SURGICAL PATHOLOGY CONSULT Routine 11/12/2024 10:32 AM EDT Dysphagia, unspecified documented in this encounter Results * Surgical Pathology Consult (11/12/2024 10:32 AM EDT) Case Report Sugical Pathology Consult Case: [id number] Authorizing Provider: Everett Beyer DO Collected: 11/12/2024 1032 Ordering Location: [facility] Lab Received: 11/12/2024 1032 Pathologist: Ed Mcclure MD Specimen: Esophagus, [id number] 11/13/2024 6:28 PM EDT [facility] Final Diagnosis ESOPHAGUS, DISTAL, BIOPSY (OUTSIDE CASE: [id number] COLLECTED ON 10/23/2024): - POORLY DIFFERENTIATED MALIGNANT NEOPLASM, FAVOR ADENOCARCINOMA - MMR PROTEINS INTACT (IHC) - [id number] IHC INTERPRETATION: POSITIVE (90% STAINING, PER REPORT) - HER2 (IHC) INTERPRETATION: NEGATIVE (SCORE: 0, PER REPORT) 11/13/2024 6:28 PM EDT [facility] at 1828 EDT Clinical Information R13.10 - Dysphagia, unspecified [ICD-10-CM] 11/13/2024 6:28 PM EDT [facility] Gross Description A. [id number] Received along with a corresponding pathology report from [facility] are 9 slide(s) labeled outside case: [id number] collected on 10/23/2024. 11/13/2024 6:28 PM EDT [facility] Tissue Esophageal structure / Unknown 11/12/2024 10:32 AM EDT 11/12/2024 10:32 AM EDT Everett Beyer DO LAB PATHOLOGY ORDERABLES Elena l Result [facility] [address] [place] [address] documented in this encounter Visit Diagnoses Diagnosis Dysphagia, unspecified documented in this encounter Additional Health Concerns Assessment Noted Time PHQ-9 Depression Total Score: 1 11/01/19 3:42 PM EDT A fall risk assessment has been complete d for the patient 10/31/2024 3:42 PM EDT A Body Mass Index follow-up plan has been documented for the patient 11/03/2024 7:42 AM EDT documented as of this encounter Care Teams Chemical Laboratory Scientist Relationship Specialty Start Date End Date Jatinder Clifford MD PCP - General Family Medicine 11/05/24 Marzena Sosa LPN [facility] TCM Nurse 10/28/24 11/27/24 documented as of this encounter
--- OUTSIDE RECORDS SUMMARY | 2025-01-28 09:14 | XMS_ITS | Encounter Summary ---
Author Organization [facility] Address [address] 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) Procedures PET/CT FDG Skull Base To Mid Thigh Everett Beyer DO [address] [address] Phone: tel: fax: [facility] [address] [place] [address] Phone: tel: Referral ID Status Reason Start Date Expiration Date V isits Requested Visits Authorized [id number] Authorized 12/05/2024 06/06/2026 2 2 Encounter Details Date Type Department Care Team (Late st Contact Info) Description 12/05/2024 Orders Only Pav CC Head, Neck & Respiratory [address] [facility], 2nd [place] [address] Marsha Ellsworth, RN [facility] 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) Expected: 12/05/2024 (Approximate), Expires: 06/07/2026 documented as of this encounter Visit Diagnoses Diagnosis 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
--- OUTSIDE RECORDS SUMMARY | 2025-01-28 09:14 | XMS_ITS | Encounter Summary ---
Author Organization Healthcare Address [address] [place] [address] Care Team Providers Care Business Account Specialist Name Role Phone Pcp, No Primary Care Provider UnavailMarzena Elliott LPN Unavailable UnavailJatinder Morrison MD Primary Care Provider Samra vailable Encounter Details Date Type Department Care Team (Late st Contact Info) Description 10/27/2024 Lab Requisition [facility] [address] [place] [address] Preet Gay MD [address] [facility] [address] [place] [address] Encounter for general adult medical [...] in the past 12 m [facility], were you homeless or living in [...] [address], 1st [place] [address] Korey Fernandes MD [address] [place] [address] documented as of this encounter Procedures Procedure Name Priority Date/Time Associated Diagnosis Comments MULTI DRUG RESISTANCE TEST Routine 10/27/2024 11:57 AM EDT Encounter for general adult medical examination without abnormal findings documented in this encounter Results * Multi Drug Resistance Test (10/27/2024 11:57 AM EDT) Culture No growth at day 1 10/28/2024 1:54 PM EDT [facility] Swab (Nares and Catie Rectal) 10/27/2024 11:57 AM EDT 10/27/2024 12:58 PM EDT Narrative [facility] - 10/28/2024 1:54 PM EDT This test was developed and its performance characteristics determined by the [facility]. Although the media is FDA-approved, it is not FDA-approved for all specimen types submitted. The FDA has determined that such clearance or approval is not necessary. This test is used for surveillance purposes. It should not be regarded as investigational or for research. The [facility] is certified under the Clinical Laboratory Improvement Amendments of 1988 (CLIA-88) as qualified to perform high complexity clinical laboratory testing. us Preet Gay MD LAB MICROBIOLOGY - GEN ERAL ORDERABLES Final Result [facility] [address] [place] [address] documented in this encounter Visit Diagnoses Diagnosis Encounter for general adult medical examination without abnormal findings documented in this encounter Additional Health Concerns Assessment Noted Time A Body Mass Index follow-up plan has been documented for the patient 10/27/2024 3:35 PM EDT documented as of this encounter Care Teams Business Account Specialist Relationship Specialty Start Date End Date Pcp, No [address] [place] [address] PCP - General Family Medicine 09/26/24 11/04/24 Jatinder Clifford MD PCP - General Family Medicine 11/05/24 Marzena Sosa LPN [facility] TCM Nurse 10/28/24 11/27/24 documented as of this encounter
--- OUTSIDE RECORDS SUMMARY | 2025-01-28 09:14 | XMS_ITS | Encounter Summary ---
Author Organization Healthcare Address [address] [place] [address] Care Team Providers Care Bog Cutter Name Role Phone Pcp, No Primary Care Provider Marzena Sullivan LPN Unavailable Jatinder Samuel MD Primary Care Provider Samra vailable Encounter Details Date Type Department Care Team (Late st Contact Info) Description 10/25/2024 Orders Only External Location [address] [place] [address] Provider, External Social History Tobacco Use Types [...] time in the past [address] [facility], were you homeless or living in a [...] Visit [place] [facility] [address], [address]st [place] [address] Korey Fernandes MD [address] [place] [address] documented as of this encounter [...] documented as of this encounter Care Teams Bog Cutter Relationship Specialty Start Date End Date Pcp, No [address] [place] [address] PCP - General Family Medicine 09/26/24 11/04/24 Jatinder Clifford MD PCP - General Family Medicine 11/05/24 Marzena Sosa LPN [facility] TCM Nurse 10/28/24 11/27/24 documented as of this encounter
--- OUTSIDE RECORDS SUMMARY | 2025-01-28 09:15 | XMS_ITS | Encounter Summary ---
Author Organization [facility] Address [address] [place] [address] Care Team Providers Care Sales Service Assistant Name Role Phone Jatinder Clifford MD Primary Care Provider Samra vailable Encounter Details Date Type Department Care Team (Latest Contact Info) Description 12/25/2024 Travel Social History Tobacco Use Types Packs/Day [...] any time in the past 12 m [facility], were you homeless or [...] Visit [place] [facility] [address], 1st [place] [address] Korey Fernandes MD [address] [place] [address] documented as of this encounter [...] documented as of this encounter Care Teams Sales Service Assistant Relationship Specialty Start Date End Date Jatinder Clifford MD PCP - General Family Medicine 11/05/24 documented as of this encounter
--- OUTSIDE RECORDS SUMMARY | 2025-01-28 09:15 | XMS_ITS | Clinical Summary ---
Author Organization [facility] Address [address] [place] [address] Care Team Providers Care Voicer Name Role Phone Jatinder Clifford MD Primary Care Provider Samra vailable Allergies No known active allergies Medications armodafinil (Nuvigil) 200 MG tablet Take 1 tablet by mouth daily. Active aspirin 81 MG chewable tablet Chew 1 tablet daily. 90 tablet 10/29/19 25 Active fluticasone-salmet shad (Advair Diskus) 250-50 MCG/ACT diskus [...] 1 tablet by mouth daily. 30 tablet 10/28/19 25 Active tamsulosin (Flomax) 0.4 MG 24 hr capsule TAKE 1 CAPSULE 1 TIME EACH DAY FOR PROSTATE 10/29/19 25 Active potassium chloride CR (Klor-Con) 10 MEQ ER tablet Take 1 tablet by mouth daily. Do not crush, chew, or split. Active Boost VHC (Boost) VHC liquid 237 mL by Per PEG Tube route 4 times a day. 55168 mL 5 12/18/19 25 01/26/2 026 Active Feeding Supplies [facility] Please send months supply of gravity bags and syringes with monthly order 1 each 5 12/18/19 25 Active neomycin-polymyxin -dexamethasone (Maxitrol) 3.5-52212-[address] 1 DROP IN BOTH EYES 4 TIMES EACH DAY FOR 14 DAYS 11/19/19 25 Active ondansetron ODT (Zofran-ODT) [address] 1 TABLET UNDER THE TONGUE AND ALLOW TO DISSOLVE 2 TIMES EACH DAY FOR 2 DAYS AFTER CHEMOTHERAPY 12/19/19 25 Active prochlorperazine (Compazine) 10 MG tablet TAKE 1 TABLET EVERY 6 HOURS NEEDED FOR NAUSEA AND VOMITING 12/19/19 25 Active Active Problems Problem Noted Date Diagnosed [...] Tube feeding per nutritional recommendations via DHT CHEMISTRY FACULTY MEMBER consult as indicated\ Hypothyroid 10/25/2024 Overview (10/25/2024): TSH 48.20 Unknown home med dose Resume home medications as appropriate T4 pending Encounters Date Type Department Care Team Description 12/25/2024 2:30 PM EDT Office Visit Pav [facility] Head[facility] Neck & Respiratory [address] [address] Everett Beyer, Feeding difficulties (Primary Dx); Aphasia 12/25/2024 Nutrition Pav [facility] Head[facility] Neck & Respiratory [address] [address] Candie Beyer, NUNU 12/25/2024 Travel 12/16/2024 Telephone Psych Oncology [address] [place] [phone] Candie Beyer, NUNU 12/12/2024 2:05 PM EDT Anesthesia Event [facility] A OPERATING ROOM [address] [place] [address] Ernesto Yung MD [place], Mireille Klein MD 12/12/2024 2:00 PM EDT - 12/12/2024 3:30 PM EDT Surgery [facility] OPERATING ROOM [address] [place] [address] Everett Beyer, DO LAP ASSITED PEG TUBE, EGD, POSSIBLE J TUBE [00538 (CPT ) +2 more] 12/12/2024 9:54 AM EDT - 12/13/2024 2:02 AM EDT Hospital Encounter [facility] OPERATING ROOM [address] [place] [phone] Everett Beyer, Feeding difficulties (Primary Dx) Discharge Disposition: Home or Self Care 12/12/2024 Nutrition Pav [facility] Head[facility] Neck [facility] Respiratory [address] [address] Candie Beyer, NUNU 12/12/2024 Travel 12/10/2024 3:30 PM EDT Pre-Admission Testing [facility] S Anesthesia [address] [place] [address] 12/10/2024 Travel 12/09/2024 Telephone Pav CC Head, Neck & Respiratory [address] [address] Marsha Ellsworth, LEEANNE 12/05/2024 Orders Only Ch Radiology Virtual Dept. 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) (Primary Dx) 12/03/2024 Orders Only External Location [address] [place] [address] Provider, External 11/20/2024 10:30 AM EDT Office Visit Pav [facility] Head, Neck & Respiratory [address] [address] Everett Beyer, DO Aphasia (Primary Dx); Feeding difficulties 11/20/2024 Nutrition [facility] Mult[facility] Oncology [facility] [address] [place] [address] Eryn Beyer 11/20/2024 Travel 11/12/2024 Lab Requisition [facility] [address] [place] [address] Everett Beyer, DO Dysphagia, unspecified 11/05/2024 Orders Only External Location [address] [place] [address] Provider, External 11/05/2024 Orders Only External Location [address] [place] [address] Provider, External 11/05/2024 Patient Outreach [facility] [address] [facility] [address] [place] [address] Marzena Sosa LPN Follow-up 10/31/2024 3:30 PM EDT Office Visit [place] [facility] [address], 1st [place] [phone] Sofia Dillard, YASMANY TIA (transient ischemic attack) (Primary Dx) 10/31/2024 Travel 10/29/2024 Telephone [facility] A Inpatient [address] [place] [address] Franklyn Jenkins Jr., RN 10/28/2024 Patient Outreach [facility] [address] [place] [address] Marzena Sosa, SUPERVISOR WOOL SHEARING TCM from Last 3 Months Family History Medical History Relation Name Comments Lung cancer Father Anesthesia problems Neg Hx Malig Hyperthermia Neg Hx Relation Name Status Comments Father Social History Tobacco Use Types Packs/Day Years [...] any time in the past 12 m [facility], were you homeless or living in a [facility] (including now)? No 10/28/2024 Utilities Answer Date [...] Mass Index 32.86 12/25/2024 2:57 PM EDT Plan of Treatment Upcoming Encounters Date Type Department Care Team (Late st Contact Info) Description 06/10/2025 9:00 AM EST Office Visit [place] [facility] [address], [address] [place] [address] Korey Fernandes MD [address] [place] [address] Health Maintenance Due Date Last Done Comments [facility]-Medicare Annual Wellness (AWV) 1954 [facility]-/Child/Adol SDOH Screenings 1954 [id number] Vaccine (#1) 1959 [facility]-DTaP,Tdap,and Td Vaccines (1 - Tdap) 1973 [facility]-Pneumococcal Vaccine: 50+ Years (1 of 2 - PCV) 1973 [facility]-Zoster Vaccines (1 of 2) 1973 CT Colonography 1999 Colonoscopy 1999 FIT-DNA 1999 FIT 1999 FOBT 1999 Sigmoidoscopy 1999 [facility]-Colorectal Cancer Screening 1999 [facility]-RSV Vaccine: 60+ Years or (1 - Risk 60-74 years 1-dose series) 2014 [facility]-Abdominal Aortic Aneurysm (AAA) Screening 2019 [facility]-Influenza Vaccine (#1) 2025 03/12/2023 [facility]- SDOH Screenings 04/29/2025 [facility]-Adult SDOH Screenings 04/29/2025 10/28/2024 [facility]-Depression Screening 10/31/2025 10/31/2024, 10/19 [facility]-Hepatitis C Screening Completed 10/25/2024 [facility]-Obesity Intervention Completed 025, 11/20/2024, 10/31/2024, Additional history exists HPV Vaccines Aged Out No longer eligi [...] Associated Diagnosis Comments PB ANESTHESIA PLACEHOLDER Routine 2024 2:15 PM EDT [place] AN ELECTIVE ENDOTRACHEAL AIRWAY Routine 12/12/2024 2:15 PM EDT [place] ESOPHAGOGASTRODUODENOSCOP Y TRANSORAL DIAGNOSTIC 12/12/2024 1:50 PM EDT Aphasia [place] INSERT TUBE-BOWEL,ENTERAL ALIMENT 12/12/2024 1:50 PM EDT Aphasia [place] EDG PERCUTANEOUS PLACEMEN T GASTROSTOMY TUBE 12/12/2024 1:50 PM EDT Aphasia PET OUTSIDE IMAGES 12/03/2024 11:55 AM EDT SURGICAL PATHOLOGY CONSULT Routine 11/12 10:32 AM EDT Dysphagia, unspecified CT MSK OUTSIDE IMAGES 11/05/2024 3:[address] THORACIC OUTSIDE IMAGES 11/05 3:01 PM EDT HEPATITIS C ANTIBODY - ED W/REFLEX TO HCV QUANT PCR STAT 10/25/2024 6:02 PM EDT from Last 3 Months or Most Recently Relevant to Health Maintenance Results * [place] AN ELECTIVE ENDOTRACHEAL AIRWAY, PB ANESTHESIA PLACEHOLDER (12/12/2024 2:15 PM EDT) Narrative Gisel Siu CRNA - 12/12/2024 2:15 PM EDT Gisel Siu CRNA 12/12/2024 2:27 PM Airway Date/Time: 12/12/2024 2:15 PM Reason: elective Airway not difficult General Information and Staff Patient location during procedure: OR FOUNTAIN JERK: Gisel iSu CRNA Performed: FOUNTAIN JERK Patient Condition Indications for airway management: anesthesia [...] ANESTHESIA ORDERABLES Edited R esult - Final * PET OUTSIDE IMAGES (12/03/2024 11:55 AM EDT) Anatomical Region Laterality Modality Nuclear Medicine 12/03/2024 11:5 5 AM EDT us External Provider IMG NM PROCEDURES Final Result * Surgical Pathology Consult (11/12/2024 10:32 AM EDT) Case Report Sugical Pathology Consult Case: [id number] Authorizing Provider: Everett Beyer DO Collected: 11/12/2024 1032 Ordering Location: [facility] Lab Received: 11/12/2024 1032 Pathologist: Ed Mcclure MD Specimen: Esophagus, [id number] 11/13/2024 6:28 PM EDT [facility] Final Diagnosis ESOPHAGUS, DISTAL, BIOPSY (OUTSIDE CASE: [id number] COLLECTED ON 10/23/2024): - POORLY DIFFERENTIATED MALIGNANT NEOPLASM, FAVOR ADENOCARCINOMA - MMR PROTEINS INTACT (IHC) - CLDN18 IHC INTERPRETATION: POSITIVE (90% STAINING, PER REPORT) - HER2 (IHC) INTERPRETATION: NEGATIVE (SCORE: 0, PER REPORT) 11/13/2024 6:28 PM EDT [facility] at 1828 EDT Clinical Information R13.10 - Dysphagia, unspecified [ICD-10-CM] 11/13/2024 6:28 PM EDT [facility] Gross Description A. [id number] Received along with a corresponding pathology report from [facility]ology [facility]ology Laboratory are 9 slide(s) labeled outside case: [id number] collected on 10/23/2024. 11/13/2024 6:28 PM EDT [facility] Tissue Esophageal structure / Unknown 11/12/2024 10:32 AM EDT 11/12/2024 10:32 AM EDT us Everett Beyer DO LAB PATHOLOGY ORDERABLES Elena l Result [facility] [address] [place] [address] * CT THORACIC OUTSIDE IMAGES (11/05/2024 3:01 PM EDT) Anatomical Region Laterality Modality Computed Tomogra phy 11/05/2024 3:01 PM EDT us External Provider IMG CT PROCEDURES Final Result * CT MSK OUTSIDE IMAGES (11/05/2024 3:01 PM EDT) Anatomical Region Laterality Modality Computed Tomogra phy 11/05/2024 3:01 PM EDT us External Provider IMG CT PROCEDURES Final Result * Hepatitis C Antibody - ED (10/25/2024 6:02 PM EDT) Hepatitis C Antibody Negative Negative 10/25/2024 7:44 PM EDT [facility] Blood Venous blood specimen / Unknown Venipuncture / Unknown 10/25/2024 6:02 PM EDT 10/25/2024 6:14 PM EDT Scott Rankin MD LAB BLOOD ORDERABLES Fi nal Result Performing Organization Address City/State/[facility] Co de Phone Number [facility] [address] [place] [address] from Last 3 Months or Most Recently Relevant to Health Maintenance Insurance [facility] MEDICARE Care Teams Voicer Relationship Specialty Start Date End Date Jatinder Clifford MD PCP - General Family Medicine 11/05/24
--- OUTSIDE RECORDS SUMMARY | 2025-01-28 09:15 | XMS_ITS | Encounter Summary ---
Author Organization Healthcare Address [address] [place] [address] Care Team Providers Care Rotary Rig Engine Operator Name Role Phone Pcp, No Primary Care Provider UnavailMarzena Elliott LPN Unavailable UnavailJatinder Morrison MD Primary Care Provider Samra vailable Encounter Details Date Type Department Care Team (Late st Contact Info) Description 06/22/2023 Orders Only External Location [address] [place] [address] Provider, External Social History Tobacco Use Types [...] Visit [place] [facility] [address], [address]st [place] [address] Korey Fernandes MD [address] [place] [address] documented as of this encounter Procedures Procedure Name Priority Date/Time Associated Diagnosis Comments CT ABDOMEN OUTSIDE IMAGES 06/22/2023 9:47 AM EST documented in this encounter Results * CT ABDOMEN OUTSIDE IMAGES (06/22/2023 9:47 AM EST) Anatomical Region Laterality Modality Computed Tomogra phy 06/22/2023 9:4 7 AM EST us External Provider IMG CT PROCEDURES Final Result documented in this encounter Visit Diagnoses Not on filedocumented in this encounter Care Teams Rotary Rig Engine Operator Relationship Specialty Start Date End Date Pcp, No [address] [place] [address] PCP - General Family Medicine 09/26/24 11/04/24 Jatinder Clifford MD PCP - General Family Medicine 11/05/24 Marzena Sosa LPN [facility] TCM Nurse 10/28/24 11/27/24 documented as of this encounter
--- OUTSIDE RECORDS SUMMARY | 2025-01-28 09:15 | XMS_ITS | Encounter Summary ---
Author Organization Healthcare Address [address] [place] [address] Care Team Providers Care Tool And Die Supervisor Name Role Phone Jatinder Clifford MD Primary Care Provider Samra vailable Encounter Details Date Type Department Care Team (Late st Contact Info) Description 12/25/2024 Nutrition Pav CC Head, Neck & Respiratory [address] [facility], 2nd [place] [address] Social History Tobacco Use [...] any time in the past 12 m [facility], were you homeless or living in a snf (including now)? No 10/28/2024 Utilities Answer Date Recorded In the past 12 months has th e [employer], gas, oil, or water company threatened to shut off services in your home? No 10/28/2024 Sex and Gender Information Value Date Recorded Sex Assigned at Not on file Legal Sex Male 4:15 PM EDT Gender Identity Not on file Sexual Orientation Not on file documented as of this encounter Miscellaneous Notes * Clinician Note - Candie Beyer, RD - 12/25/2024 3:38 PM EDT ONCOLOGY NUTRITION NOTE Patient Information Name: Edwin Cook [id number] : 1955 Date of Service: 12/25/2024 Visit Type: Nutrition consult Referral source: [facility] [employer] [facility] Dino Cook is a 69 y.o. male who was referred to [facility] dietitian for enteral nutrition management. Diagnosis Cancer Staging No matching staging information was found for the patient. Nutrition Assessment Anthropometrics: Wt Readings from Last 5 Encounters: 12/25/24 110 kg (242 lb 4.6 oz) 12/12/24 110 kg (242 lb) 12/10/24 110 kg (242 lb) 11/20/24 119 kg (262 lb 5.6 oz) 10/31/24 120 kg (265 lb 3.4 oz) Ht Readings from Last 1 Encounters: 12/25/24 1.829 m (6') BMI Readings from Last 1 Encounters: 12/25/24 32.86 kg/m?? Biochemical: Lab Results Component Value Date RBC 4.85 10/27/2024 WBC 8.68 10/27/2024 HGB 14.0 10/27/2024 HCT 42.9 10/27/2024 PLT 194 10/27/2024 Lab Results Component Value Date GLUCOSE 91 10/27/2024 NA 138 10/27/2024 K 3.8 10/27/2024 CO2 25 10/27/2024 CL 104 10/27/2024 CALCIUM 8.6 (L) 10/27/2024 BUN 11 10/27/2024 CREATININE 1.02 10/27/2024 Lab Results Component Value Date PHOS 3.4 10/27/2024 MG 2.3 10/27/2024 Lab Results Component Value Date TRIG 148 10/25/2024 ALBUMIN 4.2 10/25/2024 HGBA1C 5.6 10/25/2024 Lab Results Component Value Date ALT 21 10/25/2024 AST 21 10/25/2024 ALKPHOS 75 10/25/2024 BILITOT 0.9 10/25/2024 Malnutrition Screening No data recorded (Malnutrition Risk - Low: 0-3, Moderate: 4-8, High: 9+) Nutrition History: Pt established with [facility] RD. Last encounter 12/16 where pt was set up with [facility] for DME. Ordered Boost VHD QID to provide 2120 kcal, 88 g/pro and 636 ml/h2o. Interval History: Hx esophageal cancer s/p PEG placement 12/12. Plans to start chemoradiation next week. Visited pt and spouse in clinic. Pt continues to feed 4 cartons/day Boost VHC and is tolerating well w/o issue. Continues to get adequate fluid intake. Wt stable since sx. Questions how long gravity bags can be used. No other questions or concerns. Nutrition Intervention Continue current feeding regimen. Encouraged to monitor wt and contact if loss if present. Discussed using gravity bags for 1-2 days. Clean with water after each use. RD contact information was provided and pt was encouraged to contact with additional nutrition-related questions/concerns PRN. documented in this encounter Plan of Treatment Upcoming Encounters Date Type Department Care Team (Late st Contact Info) Description 06/10/2025 9:00 AM EST Office Visit [place] [facility] [address], [address] [place] [address] Korey Fernandes MD [address] [place] [address] documented as of this encounter [...] documented as of this encounter Care Teams Tool And Die Supervisor Relationship Specialty Start Date End Date aJtinder Clifford MD PCP - General Family Medicine 11/05/24 documented as of this encounter
[2025-01-28 09:19] LABS: Hematocrit 35.9 % (42.0-52.0); Hemoglobin 11.6 g/dL (14.1-18.0); Immature Granulocytes % 0.4 %; Mean Corpuscular HGB Conc 32.3 g/dL (31.8-35.4); Mean Corpuscular Hemoglobin 29.4 pg (27.0-31.2); Mean Corpuscular Volume 90.9 fl (80-94); Nucleated Red Blood Cells % 0 %; Platelet Count 85 K/mm3 (142-424); Red Blood Count 3.95 M/mm3 (4.60-6.20); Red Cell Distribution Width-SD 50.4 fL; White Blood Count 4.7 K/mm3 (4.8-10.8)
[2025-01-28 09:30] LABS: Alanine Aminotransferase 22 U/L (12-78); Albumin Level 3.7 g/dl (3.5-5.0); Albumin/Globulin Ratio 1.3 (1.1-1.8); Alkaline Phosphatase 62 U/L (38-126); Anion Gap 9.6 mEq/L (5-15); Aspartate Amino Transferase 30 U/L (17-59); Bilirubin,Total 0.5 mg/dl (0.2-1.3); Blood Urea Nitrogen 17 mg/dl (9-20); Calcium 9.0 mg/dl (8.4-10.2); Carbon Dioxide 27 mmol/L (22.0-30.0); Chloride 104 mmol/L (98-107); Creatinine,Serum 0.70 mg/dl (0.66-1.25); Estimated Glomerular Filt Rate 111 ml/min (>60); GFR (African American) 135 ML/MIN (>60); Globulin 2.9 g/dL (1.3-3.2); Glucose 122 mg/dl (74-100); Potassium 3.6 mmoL/L (3.5-5.1); Sodium 137 mmol/L (136-145); Total Protein,Serum 6.6 g/dl (6.3-8.2)
[2025-01-28 09:55] LABS: RBC Morphology Normal; Total Cells Counted 100
== END 2025-01-28 09:47 | disposition home or self-care (01) ==
LOC: INF 08:54
PROVIDERS: PCP Family Medicine; Visit Provider Internal Medicine Medical Oncology
DX: C15.9 Malignant neoplasm of esophagus, unspecified (principal)
CPT/HCPCS: 36415; 80053; 85007; 85025

== ENCOUNTER 2025-03-04 09:11 | Outpatient (CLI) | payer MEDICARE, SELFPAY ==
--- OUTSIDE RECORDS SUMMARY | 2025-03-04 09:24 | XMS_ITS | Encounter Summary ---
Author Organization [facility] Address [address] [place] [address] Care Team Providers Care Art Installer Name Role Phone Pcp, No Primary Care Provider Marzena Sullivan LPN Unavailable Jatinder Samuel MD Primary Care Provider Samra vailable Encounter Details Date Type Department Care Team (Late Contact Info) Description 06/22/2023 Orders Only External Location [address] [place] [address] Provider, External Social History Tobacco Use Types [...] Care Team (Late st Contact Info) Description 03/12/2025 10:00 AM EDT Appointment [facility] PET Scan [address] [place] [address] 03/12/2025 11:00 AM EDT Appointment [facility] PET Scan [address] [place] [address] 03/12/2025 1:00 PM EDT Office Visit Pav CC Head, Neck & Respiratory 800 [facility], 2nd [place] [address] Everett Beyer, DO [address] [address] documented as of this encounter Procedures Procedure Name Priority Date/Time Associated Diagnosis Comments CT ABDOMEN OUTSIDE IMAGES 06/22/2023 9:47 AM EST documented in this encounter Results * CT ABDOMEN OUTSIDE IMAGES (06/22/2023 9:47 AM EST) Anatomical Region Laterality Modality Computed Tomogra phy 06/22/2023 9:47 AM EST us External Provider IMG CT PROCEDURES Final Result documented in this encounter Visit Diagnoses Not on filedocumented in this encounter Care Teams Art Installer Relationship Specialty Start Date End Date Pcp, Nae [address] [place] [address] PCP - General Family Medicine 09/26/24 11/04/24 Jatinder Clifford MD PCP - General Family Medicine 11/05/24 Marzena Sosa LPN [facility] TCM Nurse 10/28/24 11/27/24 documented as of this encounter
--- OUTSIDE RECORDS SUMMARY | 2025-03-04 09:25 | XMS_ITS | Encounter Summary ---
Author Organization Healthcare Address [address] [place] [address] Care Team Providers Care Wet Process Technician Name Role Phone Pcp, No Primary Care Provider Marzena Sullivan LPN Unavailable Jatinder Samuel MD Primary Care Provider Samra vailable Encounter Details Date Type Department Care Team (Late st Contact Info) Description 10/25/2024 Orders Only External Location [address] [place] [address] Provider, External Social History Tobacco Use Types [...] Upcoming Encounters Date Type Department Care Team ([facility] Contact Info) Description 03/12/2025 10:00 AM EDT Appointment [facility] PET Scan [address] [place] [address] 03/12/2025 11:00 AM EDT Appointment [facility] PET Scan [address] [place] [address] 03/12/2025 1:00 PM EDT Office Visit Pav CC Head, Neck & Respiratory 800 [facility], 2nd [place] [address] Everett Beyer, DO [address] [address] documented as of this encounter Procedures Procedure [...] documented as of this encounter Care Teams Wet Process Technician Relationship Specialty Start Date End Date Pcp, No [address] [place] [address] PCP - General Family Medicine 09/26/24 11/04/24 Jatinder Clifford MD PCP - General Family Medicine 11/05/24 Marzena Sosa LPN [facility] TCM Nurse 10/28/24 11/27/24 documented as of this encounter
--- OUTSIDE RECORDS SUMMARY | 2025-03-04 09:25 | XMS_ITS | Encounter Summary ---
Author Organization Healthcare Address [address] [place] [address] Care Team Providers Care Career Manager Name Role Phone Pcp, No Primary Care Provider Marzena Sullivan LPN Unavailable Jatinder Samuel MD Primary Care Provider Samra vailable Encounter Details Date Type Department Care Team (Late st Contact Info) Description 10/25/2024 Orders Only External Location [address] [place] [address] Provider, External Social History Tobacco Use Types [...] any time in the past 12 m [facility], were you homeless or living in [...] Upcoming Encounters Date Type Department Care Team ([facility] Contact Info) Description 03/12/2025 10:00 AM EDT Appointment [facility] PET Scan [address] [place] [address] 03/12/2025 11:00 AM EDT Appointment [facility] PET Scan [address] [place] [address] 03/12/2025 1:00 PM EDT Office Visit Pav CC Head, Neck & Respiratory 800 [facility], 2nd [place] [address] Everett Beyer, DO [address] [address] documented as of this encounter Procedures Procedure [...] documented as of this encounter Care Teams Career Manager Relationship Specialty Start Date End Date Pcp, No [address] [place] [address] PCP - General Family Medicine 09/26/24 11/04/24 Jatinder Clifford MD PCP - General Family Medicine 11/05/24 Marzena Sosa LPN [facility] TCM Nurse 10/28/24 11/27/24 documented as of this encounter
--- OUTSIDE RECORDS SUMMARY | 2025-03-04 09:25 | XMS_ITS | Encounter Summary ---
Author Organization Healthcare Address [address] [place] [address] Care Team Providers Care Paraffin Machine Operator Name Role Phone Pcp, No Primary Care Provider UnavailMarzena Elliott LPN Unavailable UnavailJatinder Morrison MD Primary Care Provider Samra vailable Encounter Details Date Type Department Care Team (Late st Contact Info) Description 10/25/2024 Orders Only External Location [address] [place] [address] Kendra Ayon, DO [address] [place] [address] Social History Tobacco Use Types [...] Month) No 10/27/2024 8:00 AM EDT Renu Shahid, RN 2. Non-Specific Active Suici isabel Thoughts (Past 1 Month) No 10/27/2024 8:00 AM EDT Deloris Shahid RN 6. Suicidal Behavior (Lifetime) No 8:00 AM MELBAT Renu Shahid, RN documented as of this encounter Plan of Treatment Upcoming Encounters Date Type Department Care Team (Late st Contact Info) Description 03/12/2025 10:00 AM EDT Appointment [facility] PET Scan [address] [place] [address] 03/12/2025 11:00 AM EDT Appointment [facility] PET Scan [address] [place] [address] 03/12/2025 1:00 PM EDT Office Visit Pav CC Head, Neck & Respiratory 800 [facility], 2nd [place] [address] Everett Beyer, DO 800 [facility] 1st [place] [address] documented as of this encounter Procedures Procedure Name Priority Date/Time Associated Diagnosis Comments CT ANGIO HEAD 10/25/2024 2:55 PM EDT documented in this encounter Results * CT Angio Head (10/25/2024 2:55 PM EDT) Anatomical Region Laterality Modality [place] Computed Tomogr aphy 10/25/2024 2:55 PM EDT Kendra Ayon DO IMG CT PROCEDURES Final Result documented in this encounter Visit Diagnoses Not on filedocumented in this encounter Additional Health Concerns Assessment Noted Time A Body Mass Index follow-up plan has been documented for the patient 10/27/2024 3:35 PM EDT documented as of this encounter Care Teams Paraffin Machine Operator Relationship Specialty Start Date End Date Pcp, No [address] [place] [address] PCP - General Family Medicine 09/26/24 11/04/24 Jatinder Clifford MD PCP - General Family Medicine 11/05/24 Marzena Sosa LPN [facility] TCM Nurse 10/28/24 11/27/24 documented as of this encounter
--- OUTSIDE RECORDS SUMMARY | 2025-03-04 09:25 | XMS_ITS | Encounter Summary ---
Author Organization Healthcare Address [address] [place] [address] Care Team Providers Care Pathology Secretary Name Role Phone Pcp, No Primary Care Provider UnavailMarzena Elliott LPN Unavailable UnavailJatinder Morrison MD Primary Care Provider Samra vailable Encounter Details Date Type Department Care Team (Late st Contact Info) Description 10/27/2024 Lab Requisition [facility] [address] [place] [address] Preet Gay MD [address] [facility] [address] [place] [address] Encounter for general adult medical [...] time in the past 12 m [facility], were you homeless or living [...] AM EDT Appointment [facility] PET Scan [address] [place] [address] 03/12/2025 11:00 AM EDT Appointment [facility] PET Scan [address] [place] [address] 03/12/2025 1:00 PM EDT Office Visit Pav CC Head, Neck & Respiratory 800 [facility], 2nd [place] [address] Everett Beyer, DO [address] [facility] 1[address] [place] [address] documented as of this encounter Procedures Procedure [...] and its performance characteristics determined by the [facility]. Although the media is FDA-approved, it is not FDA-approved for all specimen types submitted. The FDA has determined that such clearance or approval is not necessary. This test is used for surveillance purposes. It should not be regarded as investigational or for research. The [facility] is certified under the Clinical Laboratory Improvement Amendments of 1988 (CLIA-88) as qualified to perform high complexity clinical laboratory testing. us Preet Gay MD LAB MICROBIOLOGY - GEN ERAL ORDERABLES Final Result [facility] [address] [place] [address] documented in this encounter Visit Diagnoses Diagnosis Encounter for general adult medical examination without abnormal findings documented in this encounter Additional Health Concerns Assessment Noted Time A Body Mass Index follow-up plan has been documented for the patient 10/27/2024 3:35 PM EDT documented as of this encounter Care Teams Pathology Secretary Relationship Specialty Start Date End Date Pcp, No [address] [place] [address] PCP - General Family Medicine 09/26/24 11/04/24 Jatinder Clifford MD PCP - General Family Medicine 11/05/24 Marzena Sosa LPN [facility] TCM Nurse 10/28/24 11/27/24 documented as of this encounter
--- OUTSIDE RECORDS SUMMARY | 2025-03-04 09:25 | XMS_ITS | Encounter Summary ---
Author Organization [facility] Address [address] [place] [address] Care Team Providers Care Acquisition Specialist Name Role Phone Jatinder Clifford MD Primary Care Provider Samra vailable Reason for Referral * Imaging (Routine) - Authorized Specialty Diagnoses / Procedures Referred By Contac t Referred To Contact Radiology Diagnoses Malignant neoplasm of lower third of esophagus Procedures PET/CT FDG Skull Base To Mid Thigh Everett Beyer DO [address] [address] Phone: tel: fax: Referral ID Status Reason Start Date Expiration Date V isits Requested Visits Authorized [id number] Authorized 02/11/2025 08/13/2026 2 2 Encounter Details Date Type Department Care Team (Late st Contact Info) Description 02/11/2025 Orders Only Pav CC Head, Neck & Respiratory [address] , [address] [place] [address] Marsha Ellsworth, RN [facility] Malignant neoplasm of lower third of esophagus (CMS/HCC) (Primary Dx); Dyspnea, unspecified type Social History Tobacco Use Types Packs/Day Years [...] any time in the past 12 m [facility], were you homeless or living in a prison (including now)? No 10/28/2024 Utilities Answer Date Recorded In the past 12 months has th e [employer], gas, oil, or water company threatened to [...] AM EDT Appointment [facility] PET Scan [address] [place] [address] 03/12/2025 11:00 AM EDT Appointment [facility] PET Scan [address] [place] [address] 03/12/2025 1:00 PM EDT Office Visit Pav CC Head, Neck & Respiratory 800 [facility], 2nd [place] [address] Everett Beyer, DO 800 [facility] 1[address] [place] [address] Scheduled Orders Name Type Priority Associated Diagnoses Orde r Schedule PET/CT FDG Skull Base To Mid Thigh Imaging Routine Malignant neoplasm of lower third of esophagus (CMS/HCC) Expected: 03/12/2025 (Approximate), Expires: 08/15/2026 Pulmonary function testing PFT Routine Malignant neoplasm of lower third of esophagus (CMS/HCC) Dyspnea, unspecified type Expected: 03/12/2025, Expires: 08/15/2026 documented as of this encounter Visit Diagnoses Diagnosis Malignant neoplasm of lower third of esophagus- Primary Dyspnea, unspecified type documented in this encounter Additional Health Concerns Assessment Noted Time PHQ-9 Depression Total Score: 1 11/01/19 25 3:42 PM EDT A fall risk assessment has been complete d for the patient 12/25/2024 2:57 PM EDT A Body Mass Index follow-up plan has been documented for the patient 12/26/2024 11:55 AM EDT documented as of this encounter Care Teams Acquisition Specialist Relationship Specialty Start Date End Date Jatinder Clifford MD PCP - General Family Medicine 11/05/24 documented as of this encounter
--- OUTSIDE RECORDS SUMMARY | 2025-03-04 09:25 | XMS_ITS | Clinical Summary ---
Author Organization [facility] Address [address] [place] [address] Care Team Providers Care Sheet Metal Worker Apprentice Name Role Phone Jatinder Clifford MD Primary [...] PEG Tube route 4 times a day. 37768 mL 5 12/18/19 25 01/26/2 026 Active Feeding Supplies [facility] Please send months supply of gravity bags and syringes with monthly order 1 each 5 12/18/19 25 Active neomycin-polymyxin -dexamethasone (Maxitrol) 3.5-57531-0.[address] DROP IN BOTH [...] Tube feeding per nutritional recommendations via DHT TECHNICAL SERVICES SPECIALIST consult as indicated\ Hypothyroid 10/25/2024 Overview (10/25/2024): TSH 48.20 Unknown home med dose Resume home medications as appropriate T4 pending Encounters Date Type Department Care Team Description 02/11/2025 Orders Only Pav [facility] Head, Neck & Respiratory [address] [address] Marsha Ellsworth, RN Malignant neoplasm of lower third of esophagus (CMS/HCC) (Primary Dx); Dyspnea, unspecified type 12/25/2024 2:30 PM EDT Office Visit Pav CC Head, Neck & Respiratory [address] [address] Everett Beyer, Feeding difficulties (Primary Dx); Aphasia 12/25/2024 Nutrition Pav CC Head, Neck & Respiratory [address] [address] Candie Beyer 12/25/2024 Travel 12/16/2024 Telephone Psych Oncology [address] [place] [address] Candie Beyer 12/12/2024 2:05 PM EDT Anesthesia Event [facility] OPERATING ROOM [address] [place] [address] Ernesto Yung MD Gambrel, Shira G, MD 12/12/2024 2:00 PM EDT - 12/12/2024 3:30 PM EDT Surgery [facility] OPERATING ROOM [address] [place] [address] Everett Beyer, DO LAP ASSITED PEG TUBE, EGD, POSSIBLE J TUBE [25761 (CPT ) +2 more] 12/12/2024 9:54 AM EDT - 12/13/2024 2:02 AM EDT Hospital Encounter [facility] OPERATING ROOM [address] [place] [address] Everett Beyer, DO Feeding difficulties (Primary Dx) Discharge Disposition: Home or Self Care 12/12/2024 Nutrition Pav [facility] Head, Neck & Respiratory [address] [address] Candie Beyer Latoya 12/12/2024 Travel 12/10/2024 3:30 PM EDT Pre-Admission Testing [facility] Anesthesia [address] [place] [address] 12/10/2024 Travel 12/09/2024 Telephone Pav CC Head, Neck & Respiratory 800 [facility], [address] [place] [address] Marsha Ellsworth RN 12/05/2024 Orders Only Ch Radiology Virtual Dept. [address] [place] [address] Mata Reed MD 12/05/2024 Orders Only Pav CC Head, Neck & Respiratory [address] [address] Marsha Ellsworth RN Malignant neoplasm of lower third of esophagus (CMS/HCC) (Primary Dx) 12/03/2024 Orders Only External Location [address] [place] [address] Provider, External from Last 3 Months Family History Medical [...] in the past 12 m [facility], were you homeless or living [...] Upcoming Encounters Date Type Department Care Team ([facility] st Contact Info) Description 03/12/2025 10:00 AM EDT Appointment [facility] PET Scan [address] [place] [address] 03/12/2025 11:00 AM EDT Appointment [facility] PET Scan [address] [place] [address] 03/12/2025 1:00 PM EDT Office Visit Pav CC Head, Neck & Respiratory [address] [facility], 2nd [place] [address] Everett Beyer, DO [address] [facility] [address] [place] [address] Health Maintenance Due Date Last Done Comments [facility]-Medicare Annual Wellness (AWV) 1955 [facility]-Infant/Child/Adol SDOH Screenings 1955 [facility]-UHSHF-11 Vaccine (#1) 1960 [facility]-DTaP,Tdap,and Td Vaccines (1 [...] ANESTHESIA PLACEHOLDER Routine 2024 2:15 PM EDT PA AN ELECTIVE ENDOTRACHEAL AIRWAY Routine 12/12/2024 2:15 PM EDT PA ESOPHAGOGASTRODUODENOSCOP Y TRANSORAL DIAGNOSTIC 12/12/2024 1:50 PM EDT Aphasia PA INSERT TUBE-BOWEL,ENTERAL ALIMENT 12/12/2024 1:50 PM EDT Aphasia PA EDG PERCUTANEOUS PLACEMEN T GASTROSTOMY TUBE 12/12/2024 1:50 PM EDT Aphasia PET OUTSIDE IMAGES 12/03/2024 11:55 AM EDT HEPATITIS C ANTIBODY - ED W/REFLEX TO HCV QUANT PCR STAT 10/25/2024 6:02 PM EDT from Last 3 Months or Most Recently Relevant to Health Maintenance Results * PA AN ELECTIVE ENDOTRACHEAL AIRWAY, PB ANESTHESIA PLACEHOLDER (12/12/2024 2:15 PM EDT) Narrative Gisel Siu CRNA - 12/12/2024 2:15 PM EDT Gisel Siu CRNA 12/12/2024 2:27 PM Airway Date/Time: 12/12/2024 2:15 PM Reason: elective Airway not difficult General Information and Staff Patient location during procedure: OR RESIDENT PHYSICIAN: Gisel Siu CRNA Performed: RESIDENT PHYSICIAN Patient Condition Indications for airway management: anesthesia [...] Comments Atraumatic. No change to dentition. us rEnesto Yung MD ANESTHESIA ORDERABLES Edited R esult - Final * PET OUTSIDE IMAGES (12/03/2024 11:55 AM EDT) Anatomical Region Laterality Modality Nuclear Medicine 12/03/2024 11:5 5 AM EDT us External Provider IMG NM PROCEDURES Final Result * Hepatitis C Antibody - ED (10/25/2024 6:02 PM EDT) Hepatitis C Antibody Negative Negative 10/25/2024 7:44 PM EDT [facility] Blood Venous blood specimen / Unknown Venipuncture / Unknown 10/25/2024 6:02 PM EDT 10/25/2024 6:14 PM EDT us Scott Rankin MD LAB BLOOD ORDERABLES Fi nal Result [facility] [address] [place] [address] from Last 3 Months or Most Recently Relevant to Health Maintenance Insurance [facility] [place] [address] Care Teams Sheet Metal Worker Apprentice Relationship Specialty Start Date End Date Jatinder Clifford MD PCP - General Family Medicine 11/05/24
--- OUTSIDE RECORDS SUMMARY | 2025-03-04 09:25 | XMS_ITS | Encounter Summary ---
Author Organization Healthcare Address [address] [place] [address] Care Team Providers Care Electrical Installation Inspector Name Role Phone Marzena Sosa LPN Unavailable Jatinder Samuel MD Primary Care Provider Samra vailable Encounter Details Date Type Department Care Team (Late st Contact Info) Description 11/12/2024 Lab Requisition [facility] [address] [place] [address] Everett Beyer, DO [address] [phone] Dysphagia, unspecified Social History Tobacco Use Types Packs/Day Years Used Date Smoking Tobacco: Former Cigarettes 3 33 1 532 - 2000 Passive Smoke Exposure: Past Alcohol [...] in the past 12 m [facility], were you homeless or living in a [...] Upcoming Encounters Date Type Department Care Team ([facility] st Contact Info) Description 03/12/2025 10:00 AM EDT Appointment [facility] PET Scan [address] [place] [address] 03/12/2025 11:00 AM EDT Appointment [facility] PET Scan [address] [place] [address] 03/12/2025 1:00 PM EDT Office Visit [facility] Head, Neck & Respiratory [address] [facility], [address]nd [place] [address] Everett Beyer, DO [address] [facility] [address] [place] [address] documented as of this encounter Procedures Procedure Name Priority Date/Time Associated Diagnosis Comments SURGICAL PATHOLOGY CONSULT Routine 11/12/2024 10:32 AM EDT Dysphagia, unspecified documented in this encounter Results * Surgical Pathology Consult (11/12/2024 10:32 AM EDT) Case Report Sugical Pathology Consult Case: [id number] Authorizing Provider: Everett Beyer DO Collected: 11/12/2024 1032 Ordering Location: [facility] Lab Received: 11/12/2024 1032 Pathologist: Ed Mcclure MD Specimen: Esophagus, [id number] 11/13/2024 6:[address] [facility] Final Diagnosis ESOPHAGUS, DISTAL, BIOPSY (OUTSIDE CASE: [id number] COLLECTED ON 10/23/2024): - POORLY DIFFERENTIATED MALIGNANT NEOPLASM, FAVOR ADENOCARCINOMA - MMR PROTEINS INTACT (IHC) - CLDN18 IHC INTERPRETATION: POSITIVE (90% STAINING, PER REPORT) - HER2 (IHC) INTERPRETATION: NEGATIVE (SCORE: 0, PER REPORT) 11/13/2024 6:[address] [facility] at 1828 EDT Clinical Information R13.10 - Dysphagia, unspecified [ICD-10-CM] 11/13/2024 6:28 PM EDT [facility] Gross Description A. [id number] Received along with a corresponding pathology report from [facility] are 9 slide(s) labeled outside case: [id number] collected on 10/23/2024. 11/13/2024 6:28 PM EDT [facility] Tissue Esophageal structure / Unknown 11/12/2024 10:32 AM EDT 11/12/2024 10:32 AM EDT us Everett Beyer DO LAB PATHOLOGY ORDERABLES Elena harrison Result [facility] [address] [place] [address] documented in this encounter Visit Diagnoses Diagnosis [...] documented as of this encounter Care Teams Electrical Installation Inspector Relationship Specialty Start Date End Date Jatinder Clifford MD PCP - General Family Medicine 11/05/24 Marzena Sosa LPN [facility] TCM Nurse 10/28/24 11/27/24 documented as of this encounter
--- OUTSIDE RECORDS SUMMARY | 2025-03-04 09:25 | XMS_ITS | Encounter Summary ---
Author Organization Healthcare Address [address] [place] [address] Care Team Providers Care General Matcher Name Role Phone Pcp, No Primary Care Provider Marzena Sullivan LPN Unavailable Jatinder Samuel MD Primary Care Provider Samra vailable Encounter Details Date Type Department Care Team (Late st Contact Info) Description 10/25/2024 Orders Only External Location [address] [place] [address] Provider, External Social History Tobacco Use Types [...] any time in the past 12 m [facility], were you homeless or living in a penitentiary (including now)? No 10/28/2024 Utilities Answer Date [...] Upcoming Encounters Date Type Department Care Team ([facility] Contact Info) Description 03/12/2025 10:00 AM EDT Appointment [facility] PET Scan [address] [place] [address] 03/12/2025 11:00 AM EDT Appointment [facility] PET Scan [address] [place] [address] 03/12/2025 1:00 PM EDT Office Visit Pav [facility] Head, Neck & Respiratory [address] [facility], [address] [place] [phone] Everett Beyer, DO [address] [address] documented as of this encounter Procedures Procedure [...] documented as of this encounter Care Teams General Matcher Relationship Specialty Start Date End Date Pcp, No [address] [place] [address] PCP - General Family Medicine 09/26/24 11/04/24 Jatinder Clifford MD PCP - General Family Medicine 11/05/24 Marzena Sosa LPN [facility] TCM Nurse 10/28/24 11/27/24 documented as of this encounter
[2025-03-04] MEDS: IOPAMIDOL-370 (76%);100ML BOTTLE 75 ML IV (09:30)
[2025-03-04] MEDS: SODIUM CHLORIDE 0.9% 10ML SYR (RAD ONLY) 10 ML IV (09:30)
--- NOTE | 2025-03-04 09:30 | CT_ITS ---
FINAL REPORT TECHNIQUE: Thin section axial images are obtained through the abdomen and pelvis after intravenous contrast. Reconstruction images were obtained from the axial data. Exam was performed using dose reduction techniques. This study was performed with techniques to keep radiation doses as low as reasonably achievable (ALARA). Individualized dose reduction techniques using automated exposure control or adjustment of mA and/or kV according to the patient's size were employed. CLINICAL HISTORY: ESOPHAGEAL CANCER COMPARISON: 11/05/2024. FINDINGS: DISTAL ESOPHAGUS AND STOMACH: There is wall thickening of the distal esophagus and gastroesophageal junction in this patient with known esophageal carcinoma. There is surrounding abnormal increased attenuation, that most likely is secondary to radiation therapy. A G-tube is present in the stomach. The previously noted gastrohepatic ligament adenopathy has decreased in size since the prior exam. No other adenopathy or ascites is demonstrated, no acute abnormality. LIVER: Homogeneous. No focal lesion. GALLBLADDER/BILIARY SYSTEM: Gallbladder is present. No gallstones. No biliary dilatation. SPLEEN: Unremarkable. PANCREAS: Unremarkable. ADRENALS: Unremarkable. KIDNEYS/URETERS/BLADDER: No hydronephrosis, renal mass, or renal stone. Unremarkable urinary bladder. GI TRACT: No small bowel obstruction or dilatation. Normal appendix. There is moderate stool present in the proximal colon, without other gastrointestinal abnormalities noted. PELVIC ORGANS: Unremarkable for age. LYMPH NODES/RETROPERITONEUM/MESENTERY: No lymphadenopathy. No abdominal aortic aneurysm. ABDOMINAL WALL: The abdominal wall is intact. FREE FLUID: No ascites. BONES: No acute osseous abnormality. IMPRESSION: 1. Slight worsening of distal esophageal wall thickening and thickening at the GE junction, with surrounding abnormal attenuation, favor related to radiation changes. No evidence of metastatic disease. 2. Decrease in size of gastrohepatic ligament adenopathy. Reviewed, Interpreted and Dictated by Alexia Godinez MD Transcribed by Mari Funk Authenticated and [facility]
--- NOTE | 2025-03-04 09:30 | CT_ITS ---
FINAL REPORT TECHNIQUE: Thin section axial images were obtained from the thoracic inlet through the upper abdomen after intravenous contrast injection. Reconstruction images were obtained from the axial data. Exam was performed using dose reduction technique. This study was performed with techniques to keep radiation doses as low as reasonably achievable (ALARA). Individualized dose reduction techniques using automated exposure control or adjustment of mA and/or kV according to the patient's size were employed. CLINICAL HISTORY: ESOPHAGEAL CANCER COMPARISON: 11/05/2024 FINDINGS: There is no mediastinal, hilar, or axillary lymphadenopathy. There is no pleural or pericardial effusion. There is wall thickening of the distal esophagus and the gastroesophageal junction, which is stable to slightly worse compared to the prior exam. Changes of emphysema are present. There is evidence of prior granulomatous disease. There are 2 right lower lobe nodules best seen on image #61 of series 4, that are stable, the largest measuring 5 mm in size. No new nodules or masses are identified. No areas of consolidation are seen. No acute osseous abnormality. IMPRESSION: 1. Wall thickening of the distal esophagus and gastroesophageal junction, stable to slightly worse than seen on the prior exam. 2. Right lower lobe nodules which are stable, the largest measuring 5 mm in size. 3. No new pulmonary nodules or masses are identified. Reviewed, Interpreted and Dictated by Alexia Godinez MD Transcribed by Mari Funk Authenticated and [facility]
== END 2025-03-04 23:59 | disposition home or self-care (01) ==
LOC: RAD 09:12
PROVIDERS: PCP Family Medicine; Visit Provider Internal Medicine Medical Oncology
DX: C15.9 Malignant neoplasm of esophagus, unspecified (principal); K22.89 Other specified disease of esophagus; R91.8 Other nonspecific abnormal finding of lung field
CPT/HCPCS: 71260; 74177; Q9967

== ENCOUNTER 2025-05-12 14:02 | Outpatient (CLI) | payer MEDICARE, SELFPAY ==
--- OUTSIDE RECORDS SUMMARY | 2025-03-12 10:43 | XMS_ITS | Encounter Summary ---
Author Organization Healthcare Address [address] [place] [address] Care Team Providers Care Quality Management Nurse Name Role Phone Jatinder Clifford MD Primary Care Provider Samra vailable Encounter Details Date Type Department Care Team (Latest Contact Info) Description 03/12/2025 11:43 AM EDT - 03/12/2025 11:59 PM EDT Hospital Encounter [facility] Pulmonary Function Testing [address] [place] [address] Malignant neoplasm of lower third of esophagus; Dyspnea, unspecified type Discharge Disposition: Home or Self Care Social [...] the past 12 months has th e [employer], gas, oil, or water company threatened to shut off services in your home? No 10/28/2024 Sex and Gender Information Value Date Recorded Sex Assigned at Not on file Legal Sex Male 4:15 PM EDT Gender Identity Not on file Sexual Orientation Not on file documented as of this encounter Medications at Time of Discharge acetaminophen (Tylenol) 160 MG/5ML solution 30 mL by Per J Tube route every 6 hours. 1200 mL 5 armodafinil (Nuvigil) 200 MG tablet Take 1 tablet by mouth daily. aspirin 81 MG chewable tablet Chew 1 tablet daily. 90 tablet 5 Boost [facility] (Boost) [facility] liquid 237 mL by Per PEG Tube route 4 times a day. 30801 mL 5 5 06/15/19 26 buPROPion XL (Wellbutrin XL) 300 MG 24 hr tablet Take 1 tablet by mouth daily. Do not crush, chew, or split. Feeding Supplies [facility] Please send months supply of gravity bags and syringes with monthly order 1 each 5 5 fenofibrate (Triglide) 160 MG tablet Take 1 tablet by mouth daily. fluticasone-salmete rol (Advair Diskus) 250-50 MCG/ACT diskus inhaler Inhale 1 puff 2 times a day. Rinse mouth with water after use to reduce aftertaste and incidence of candidiasis. Do not swallow. isosource 1.5 Piotr/mL liquid 65 mL/hr by Per J Tube route continuously at 65 mL/hr. Equivalent Substitutions Allowed? Yes 1 each 5 07/13/19 26 Levothyroxine Sodium (Thyquidity) 100 MCG/5ML oral solution 10 mL by Per J Tube route every morning. 100 mL 5 losartan (Cozaar) 25 MG tablet Take 1 tablet by mouth daily. ondansetron ODT (Zofran-ODT) [address] 1 TABLET UNDER THE TONGUE AND ALLOW TO DISSOLVE 2 TIMES EACH DAY FOR 2 DAYS AFTER CHEMOTHERAPY 5 oxyCODONE (Roxicodone) 1 MG/ML solution 10 mL by Per J Tube route every 6 hours as needed for severe pain. By Day 3, please start using only 5mL every 6 hours 400 mL 5 rosuvastatin (Crestor) 20 MG tablet Take 1 tablet by mouth daily. 30 tablet 5 tamsulosin (Flomax) 0.4 MG 24 hr capsule Take 1 capsule by mouth daily. 5 ibuprofen 100 MG/5ML suspension 20 mL by Per J Tube route every 6 hours for 10 days. 800 mL 5 04/25/20 25 pantoprozole (Protonix) 2 mg/mL suspension 20 mL by Per J Tube route daily for 10 days. 200 mL 5 04/25/20 25 senna (Senokot) 8.8 MG/5ML syrup 5 mL by Per J Tube route nightly for 10 days. 240 mL 5 5 04/25/20 25 aspirin 81 MG oral suspension 81 mL by Per J Tube route daily for 10 days. 810 mL 5 04/15/20 25 levothyroxine (Synthroid, Levoxyl) 200 MCG tablet Take 1 tablet by mouth daily. 04/15/20 25 levothyroxine (Synthroid, Levoxyl) 50 MCG tablet Take 1 tablet by mouth daily. 04/07/20 25 neomycin-polymyxin- dexamethasone (Maxitrol) 3.5-06498-6.1 ophthalmic suspension 2 times a day. 5 04/07/20 25 omeprazole (PriLOSEC) [address] capsule Take 1 capsule by mouth daily. 5 04/15/20 25 oxyCODONE (Roxicodone) 1 MG/ML solution Take 10 mL by mouth every 6 hours as needed for severe pain. By Day 3, please start using only 5mL every 6 hours 400 mL 04/15/20 25 potassium chloride CR (Klor-Con) 10 MEQ ER tablet Take 1 tablet by mouth daily. Do not crush, chew, or split. 04/07/20 25 prochlorperazine (Compazine) 10 MG tablet Take 1 tablet by mouth every 6 hours as needed for nausea or vomiting. 5 05/11/20 25 documented as of this encounter Plan of Treatment Upcoming Encounters Date Type Department Care Team ([facility] st Contact Info) Description 08/20/2025 10:15 AM EDT Office Visit Pav CC Head, Neck & Respiratory [address] [facility], [address]nd [place] [address] Everett Beyer, DO [address] [address] documented as of this encounter Goals Goal Patient Goal Type Associated Problems Recent Progress Patient-Stated? Author Autogenerat ed Goal Care Plan Autogenerated Problem No Nicole Ty documented as of this encounter Procedures Procedure Name Priority Date/Time Associated Diagnosis Comments HC DIFFUSING CAPACITY - CARBON MONOXIDE DIFFUSING CAPACITY Routine 03/12/2025 12:36 PM EDT Malignant neoplasm of lower third of esophagus Dyspnea, unspecified type documented in this encounter Results * Pulmonary function testing (03/12/2025 12:36 PM EDT) Anatomical Region Laterality Modality PFT Narrative 03/12/2025 4:07 PM EDT Pulmonary Function Testing Report Edwin Cook underwent pulmonary function testing today at the [facility]. The patient underwent spirometry, lung volumes by body plethysmography, and diffusion capacity testing. All tests were appropriately administered via ATS/ERS criteria. All tests are acceptable and interpretable unless noted otherwise. Spirometry: Reduced FEV1 with a normal FVC and reduced ratio consistent with mild obstruction Lung Volumes: Elevated RV/TLC which is suggestive of air trapping. Diffusion Capacity: Diffusion capacity uncorrected for Hb is normal. Notably, DLCO may be underestimated due to incomplete inhalation. Trend: There are no prior studies for comparison. Everett Beyer DO PFT ORDERABLES Final Result documented in this encounter Visit Diagnoses Diagnosis Malignant neoplasm of lower third of esophagus Dyspnea, unspecified type documented in this encounter Additional Health Concerns Active Problems Noted Date Diagnosed Date Autogenerated Problem 03/12/2025 Assessment Noted Time PHQ-9 Depression Total Score: 1 11/01/19 25 3:42 PM EDT A fall risk assessment has been complete d for the patient 03/12/2025 12:52 PM EDT A Body Mass Index follow-up plan has been documented for the patient 03/12/2025 4:26 PM EDT documented as of this encounter Care Teams Quality Management Nurse Relationship Specialty Start Date End Date Jatinder Clifford MD PCP - General Family Medicine 11/05/24 documented as of this encounter
--- OUTSIDE RECORDS SUMMARY | 2025-04-06 05:25 | XMS_ITS | Encounter Summary ---
Author Organization Healthcare Address [address] 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 Procedures MT ESOPHAGECTOMY DISTAL 2/3 W/LAPAROSCOPIC MOBLJ MT LAP, SURG JEJUNOSTOMY MT EDG INTRALUMINAL TUBE/CATHETER INSERTION MT BRONCHOSCOPY,DIAGNOSTIC RODERICK ROMERO ESOPHAGECTOMY RODERICK ROMERO ESOPHAGECTOMY RODERICK ROMERO ESOPHAGECTOMY RODERICK ROMERO ESOPHAGECTOMY Everett Beyer, DO [address] [address] Phone: tel: fax: [facility] [address] [place] [address] Phone: tel: Referral ID Status Reason Start Date Expiration Date Visits Re quested Visits Authorized [id number] 1 4 Encounter Details Date Type Department Care Team (Latest Contact Info) Description 04/06/2025 5:25 AM EST - 04/15/2025 4:25 PM EST Hospital Encounter [facility] [address] [place] [address] Everett Beyer, DO [address] [phone] Malignant neoplasm of lower third of esophagus Discharge Disposition: Home or Self Care Social [...] Questionnaire-9 Score 1 10/31/2024 Humiliation, Afraid, Rape, and Kick questionnair e Answer Date Recorded Within the last year, have y ou been afraid of your partner or ex-partner? No 04/07/2025 Within the last year, have y ou been humiliated or emotionally abused in other ways by your partner or ex-partner? No Within the last year, have y ou been kicked, hit, slapped, or otherwise physically hurt by your partner or ex-partner? No 04/07/2025 Within the last year, have y ou been raped or forced to have any kind of sexual activity by your partner or ex-partner? No 04/07/2025 Hunger Vital Sign Answer Date Recorded Within the past 12 months, y ou worried that your food would run out before you got the money to buy more. Never true 04/07/20 25 Within the past 12 months, t he food you bought just didn't last and you didn't have money to get more. Never true 04/07/2025 PRAPARE - Transportation Answer Date Re corded In the past 12 months, has l ack of transportation kept you from medical appointments or from getting medications? No 03/21 In the past 12 months, has l ack of transportation kept you from meetings, work, or from getting things needed for daily living? No 04/07/2025 Housing Stability Vital Sign Answer Noah e Recorded In the last 12 months, was t here a time when you were not able to pay the mortgage or rent on time? No 04/07/2025 In the past 12 months, how m any times have you moved where you were living? 0 04/07/2025 At any time in the past [address] [facility], were you homeless or living in a penitentiary (including now)? No 04/07/2025 [facility] Utilities Answer Date Recorded In the past 12 months has th e electric, gas, oil, or water company threatened to shut off services in your home? No 04/07/2025 Sex and Gender Information Value Date Recorded Sex Assigned at Not on file Legal Sex Male 4:15 PM EDT Gender Identity Not on file Sexual Orientation Not on file documented as of this encounter Last Filed Vital Signs Vital Sign Reading Time Taken Comments Blood Pressure 128/67 04/15/2025 11:40 AM EST Pulse 68 04/15/2025 11:40 AM EST Temperature 36.4 C (97.5 F) 04/15/2025 11:40 AM EST Respiratory Rate 19 04/15/2025 7:36 AM EST Oxygen Saturation 94% 04/15/2025 11:40 AM EST Inhaled Oxygen Concentration - - Weight 94.5 kg (208 lb 5.4 oz) 04/13/2025 6:23 A M EST Height 182.9 cm (6') 04/10/2025 8:18 PM EST Body Mass Index 28.26 04/10/2025 8:18 PM EST documented in this encounter Functional Status * Question Answer Date of Assessment Author Precautions Environmental surveillance 04/15/2025 12: 00 PM EST Scott De La Cruz RN * Calculated C-SSRS Risk Score (Lifetime/Recent) Answer Date of Assessment Author No Risk Indicated 04/19/2025 8:23 PM EST Joselin Youngblood RN * Question Answer Date of Assessment Author 1. Wish to be (Past 1 Month) No 025 8:23 PM Joselin Luna RN 2. Non-Specific Active Suici isabel Thoughts (Past 1 Month) No 04/19/2025 8:23 PM EST Joselin Youngblood RN 6. Suicidal Behavior (Lifetime) No 8:23 PM EST Joselin Youngblood RN documented as of this encounter Mental Status * Question Answer Entry Date Author Precautions Environmental surveillance 04/15 12:00 PM EST Scott De La Cruz RN documented in this encounter Discharge Instructions * Discharge Instructions* Misha Aguilera DO - 04/15/2025 7:45 AM EST Medications: - You should take Tylenol and/or ibuprofen every 6 hours as needed for mild - moderate pain. - You have been prescribed pain medications to be taken as needed for severe pain. - You may take a stool softener as needed, as long as you are taking narcotics. - You may resume your previous medications unless otherwise instructed. Nutrition: - Diet as discussed prior to discharge alongside tube feeds. Activity: - Walking and climbing stairs is ok and encouraged. You should refrain from any strenuous activity/exercise until your follow up appointment. - No lifting anything >10lbs for the next 2 weeks - You may not drive for 48 hours after surgery, or while taking narcotics Dressing: - A special [...] a tub bath for 2 weeks. - Stitches will be removed at follow up appointment. J-tube care: - Flush feeding tube with water before connecting tube feeds and after disconnecting tube feeds. - Flush feeding tube with water before and after giving liquid medications. - May use abdominal binder if needed - Keep surrounding area around tube clean - Do NOT give crushed and/or powdered medications via j-tube. Liquid medications only. Potential Issues: - It is normal to have some pain and soreness, especially around the incisions - A small amount of clear drainage from the incision may be expected, call the office if [...] follow up appointment with Dr. Beyer in 1-2 weeks. - Contact the [facility] team via: - For non-emergent questions/concerns: Clinic discharge # - For urgent questions/concerns: [facility] hotline: , option 4 - ask for the thoracic surgeon transmission specialist. documented in this encounter Medications at Time of Discharge acetaminophen (Tylenol) 160 MG/5ML solution 30 mL by Per J Tube route every 6 hours. 1200 mL 5 armodafinil (Nuvigil) 200 MG tablet Take 1 tablet by mouth daily. aspirin 81 MG chewable tablet Chew 1 tablet daily. 90 tablet 5 Boost [facility] (Boost) [facility] liquid 237 mL by Per PEG Tube route 4 times a day. [address]019 mL 5 5 06/15/19 26 buPROPion XL (Wellbutrin XL) 300 MG 24 hr tablet Take 1 tablet by mouth daily. Do not crush, chew, or split. Feeding Supplies [facility] [place] Please send months supply [...] days. 240 mL 5 5 04/25/20 25 prochlorperazine (Compazine) 10 MG tablet Take 1 tablet by mouth every 6 hours as needed for nausea or vomiting. 5 05/11/20 25 documented as of this encounter Miscellaneous Notes * Discharge Summary - Misha Aguilera DO - 04/15/2025 2:32 PM EST Images from the original note were not included. Hospitalization Admit Date/Time: 04/06/2025 5:25 AM Admitting Attending: Everett Beyer Discharge Date: 04/15/2025 Discharge Attending Physician: Everett Beyer DO PCP name and Address: Jatinder Clifford MD None Referring provider name and address: No referring provider defined for this encounter. Chief Concern, Brief History of Present Illness, and Hospital Course Draft Hospital Course Edwin Cook is a 70 y.o. male who presented to [facility] on 04/06/2025 for surgical intervention of esophageal cancer. On 04/06/2025 the patient was taken to the operating room to undergo minimally invasive Dallas Romero esophagectomy, J tube placement, takedown of prior gastrostomy tube, bronchoscopy, and EGD. The patient was admitted postoperatively for routine post-op care. The patient's perioperative course was uneventful. During the patient's admission, his pain was adequately controlled, nutrition was optimized, mobility was encouraged/advanced as appropriate, and the level of care was deescalated as medically appropriate. On 04/15/2025 the patient was deemed appropriate for discharge to home. At the time of discharge, the patient's pain was controlled with PO pain medications. The patient was tolerating a CLD diet alongside goal tube feeds. The patient was voiding without difficulty. The patient's mobility/activity was appropriate for his current condition. he was determined to have reached maximal benefit of hospital admission. The patient is to follow-up with Dr. Beyer in clinic in 1-2 weeks for initial post op visit. Surgeries and Procedures Procedures performed in this encounter Procedures Critical Care Critical Care RODERICK ROMERO ESOPHAGECTOMY (N/A) Medication List PAUSE taking these medications * Boost [facility] liquid Wait to take this until your doctor or other care provider tells you to start again. 237 mL by Per PEG Tube route 4 times a day. You also have another medication with the same name that you may need to continue taking. * This list has 1 medication(s) that are the same as other medications prescribed for you. Read thedirections carefully, and ask your doctor or other care provider to review them with you. .. acetaminophen 160 MG/5ML solution Commonly known as: Tylenol 30 mL by Per J Tube route every 6 hours. armodafinil 200 MG tablet Commonly known as: Nuvigil Take 1 tablet by mouth daily. aspirin 81 MG chewable tablet Chew 1 tablet daily. * isosource 1.5 Piotr/mL liquid 65 mL/hr by Per J Tube route continuously at 65 mL/hr. Equivalent Substitutions Allowed? Yes buPROPion XL 300 MG 24 hr tablet Commonly known as: Wellbutrin XL Take 1 tablet by mouth daily. Do not crush, chew, or split. Feeding Supplies [facility] Please send months supply of gravity bags and syringes with monthly order fenofibrate 160 MG tablet Commonly known as: Triglide Take 1 tablet by mouth daily. fluticasone-salmeterol 250-50 MCG/ACT diskus inhaler Commonly known as: Advair Diskus Inhale 1 puff 2 times a day. Rinse mouth with water after use to reduce aftertaste and incidence ofcandidiasis. Do not swallow. ibuprofen 100 MG/5ML suspension 20 mL by Per J Tube route every 6 hours for 10 days. Levothyroxine Sodium 100 MCG/5ML oral solution Commonly known as: Thyquidity 10 mL by Per J Tube route every morning. Start taking on: April 16, 2025 losartan 25 MG tablet Commonly known as: Cozaar Take 1 tablet by mouth daily. ondansetron ODT 8 MG disintegrating tablet Commonly known as: Zofran-ODT PLACE 1 TABLET UNDER THE TONGUE AND ALLOW TO DISSOLVE 2 TIMES EACH DAY FOR 2 DAYS AFTER CHEMOTHERAPY oxyCODONE 1 MG/ML solution Commonly known as: Roxicodone 10 mL by Per J Tube route every 6 hours as needed for severe pain. By Day 3, please start using only 5mL every 6 hours pantoprozole 2 mg/mL suspension Commonly known as: Protonix 20 mL by Per J Tube route daily for 10 days. prochlorperazine 10 MG tablet Commonly known as: Compazine Take 1 tablet by mouth every 6 hours as needed for nausea or vomiting. rosuvastatin 20 MG tablet Commonly known as: Crestor Take 1 tablet by mouth daily. senna 8.8 MG/5ML syrup Commonly known as: Senokot 5 mL by Per J Tube route nightly for 10 days. tamsulosin 0.4 MG 24 hr capsule Commonly known as: Flomax Take 1 capsule by mouth daily. * This list has 1 medication(s) that are the same as other medications prescribed for you. Read thedirections carefully, and ask your doctor or other care provider to review them with you. Where to Get Your Medications These medications were sent to [facility] -[place], [place] - [address], [facility] [id number] isosource 1.5 Piotr/mL liquid These medications were sent to [facility] - [place], [place] - [address] [place] [id number] acetaminophen 160 MG/5ML solution ibuprofen 100 MG/5ML suspension Levothyroxine Sodium 100 MCG/5ML oral solution oxyCODONE 1 MG/ML solution pantoprozole 2 mg/mL suspension senna 8.8 MG/5ML syrup Discharge Diagnosis Medical Problems Active and Resolved Hospital Problems Hospital HLD (hyperlipidemia) Overview Signed 10/25/2024 8:52 PM by Everett Zhang, [employer] Continue statin GERD (gastroesophageal reflux disease) Overview Signed 10/25/2024 8:52 PM by Everett Zhang APRN Continue PPI JUAN DIEGO (obstructive sleep apnea) Overview Addendum 04/09/2025 12:45 PM by Casandra Rodríguez APRN Complicates all aspects of care. Former smoker Overview Signed 10/25/2024 8:53 PM by Everett Zhang APRN Complicates all aspects of care. Obesity Overview Signed 10/25/2024 8:53 PM by Everett Zhang APRN Complicates all aspects of care. Electrolyte abnormality Overview Signed 10/25/2024 9:00 PM by Everett Zhang APRN Replace and trend per ICU protocol Feeding difficulties Hypothyroid Overview Addendum 04/09/2025 12:42 PM by Casandra Rodríguez APRN TSH 48.20 on 10/25/2024 Resume home medications as appropriate. * (Principal) Esophageal cancer Respiratory insufficiency Overview Addendum 04/09/2025 12:41 PM by Casandra Rodríguez APRN HX of COPD Hypertension BPH (benign prostatic hyperplasia) Anemia Overview Signed 04/06/2025 3:20 PM by Ty Moctezuma APRN Thrombocytopenia (CMS/HCC) Post Discharge Instructions Medications: - You should take Tylenol and/or ibuprofen every 6 hours as needed for mild - moderate pain. - You have been prescribed pain medications to be taken as needed for severe pain. - You may take a stool softener as needed, as long as you are taking narcotics. - You may resume your previous medications unless otherwise instructed. Nutrition: - Diet as discussed prior to discharge alongside tube feeds. Activity: - Walking and climbing stairs is ok and encouraged. You should refrain from any strenuous activity/exercise until your follow up appointment. - No lifting anything >10lbs for the next 2 weeks - You may not drive for 48 hours after surgery, or while taking narcotics Dressing: - A special [...] a tub bath for 2 weeks. - Stitches will be removed at follow up appointment. J-tube care: - Flush feeding tube with water before connecting tube feeds and after disconnecting tube feeds. - Flush feeding tube with water before and after giving liquid medications. - May use abdominal binder if needed - Keep surrounding area around tube clean - Do NOT give crushed and/or powdered medications via j-tube. Liquid medications only. Potential Issues: - It is normal to have some pain and soreness, especially around the incisions - A small amount of clear drainage from the incision may be expected, call the office if [...] follow up appointment with Dr. Beyer in 1-2 weeks. - Contact the Thoracic Surgery team via: - For non-emergent questions/concerns: Clinic discharge # - For urgent questions/concerns: [facility] hotline: , option 4 - ask for the thoracic surgeon transmission specialist. Outpatient Follow-Up No future appointments. Test Results Pending At Discharge Pending Labs Order Current Status Prepare Leukocyte Reduced RBC: 2 Units Preliminary result Pertinent Physical Exam At Time of Discharge Physical Exam Vitals reviewed. Constitutional: General: He is not in acute distress. Appearance: He is not ill-appearing. HENT: Head: Normocephalic and atraumatic. Mouth/Throat: Mouth: Mucous membranes are moist. Pharynx: Oropharynx is clear. Eyes: Extraocular Movements: Extraocular movements intact. Conjunctiva/sclera: Conjunctivae normal. Cardiovascular: Rate and Rhythm: Normal rate and regular rhythm. Pulmonary: Effort: Pulmonary effort is normal. No respiratory distress. Abdominal: General: Abdomen is flat. There is no distension. Palpations: Abdomen is soft. Tenderness: There is no abdominal tenderness. Musculoskeletal: General: No swelling. Skin: General: Skin is warm and dry. Coloration: Skin is not jaundiced or pale. Neurological: General: No focal deficit present. Mental Status: He is alert and oriented to person, place, and time. Mental status is at baseline. Psychiatric: Mood and Affect: Mood normal. Behavior: Behavior normal. Thought Content: Thought content normal. Judgment: Judgment normal. Discharge Disposition/Condition Disposition: Home Condition: Stable (s/sx potential problems absent or manageable) I spent >30 minutes of patient care and instruction time in preparation for this discharge. Cosigned by Real Westfall MD at 04/17/2025 12:39 PM EST Associated attestation - Real Westfall MD - 04/17/2025 12:39 PM EST I saw and evaluated the patient with the resident/fellow. I discussed the case with the resident/fellow and agree with the findings and plan as documented. * Progress Notes - Maria Alejandra Carpio RN - 04/15/2025 10:01 AM EST Case Management Discharge Note Edwin Cook 70 y.o. male CSN: [id number] Admission: 04/06/2025 5:25 AM Primary Problem: Esophageal cancer Primary Express Clerk: Primary Caregiver: Self Assistance Available at Discharge: Current Outpatient/Agency/Support Group: infusion therapy, home Availability of Care Givers (#Hours): 24 hours Family/Express Clerk(s) Willingness Assessed to care for patient at home: Yes Housing Circumstances-Z Codes: Housing Circumstances (select all that apply): None Applicable Patient Referred to Financial or Community Resources: Financial Resources: (n/a) Discharge Facility/Level of Care Needs: Discharge Facility/Level of Care Needs: 1-Home or Self Care Patient's Choice of Community Agency(s): Patient's Choice of Community Agency(s): [facility] Patient/Family Anticipated Services at Transition: Patient/Family Anticipated Services at Transition: durable medical equipment DME/Equipment Needed after Discharge: Equipment Currently Used at Home: Cpap Equipment Needed After Discharge: other (see comments) (TF pump and supplies) Readmission Within the Last 30 Days: Readmission Within the Last 30 Days: no previous admission in last 30 days Medicare Documentation: Medicare Second Notice?: Yes Date Second Notice Completed: 04/15/25 Time Second Notice Completed: 941 Medicare Second Notice Recieved By: patient and Follow-up: [address] [address] Follow up for home TF supplies Discharge Transportation: Transportation Anticipated: family or friend will provide Transportation Home at Discharge: Family/Friend will Provide Follow Up Transport: Transportation Needed to Follow up Appoinments: Family/Friend will Provide Additional Comments: Per primary team patient is medically ready for discharge. TF [facility] to [facility] [place]. Rep will come to bedside for teaching and deliver supplies. will assist and transport at discharge. Maria Alejandra Carpio RN * Progress Notes - Marcelo Talavera - 04/15/2025 9:31 AM EST Speech Language Pathology Clinical Swallow Initial Evaluation Patient Name: Dino Cook Age: 70 y.o. Today's Date: 04/15/2025 Recommendations: MBS study to further assess swallowing physiology and establish treatment plan. Continue PO intake per team discretion. Oral care q4h. *Following completion of clinical swallow evaluation and contact with Team to request MBS study order, First Call provider canceled dysphagia consult and stated that team did not wish to move forwardwith MBS study at this time. Given that pt contact and evaluation were completed, documentation andcharges were entered. History/Background Information Edwin Cook is a 70 y.o. male 8 Days Post-Op from minimally invasive Roderick Romero esophagectomy and j-tube insertion. Problem List[1] Past Medical History[2] Surgical History[3] Current diet: Tube Feeding Tube feeding formula: Isosource 1.5; Route of feeding: Per J Tube; Tube feeding schedule: Continuous; Tube feeding continous initial Rate (ml/hr): 20; Advance by (ml): 10; Advance every (hr): 12; Tube feeding continuous goal rate (mL/... Adult diet Diet texture: Clear liquid; Other restriction(s): No carbonated beverages Subjective Edwin Cook was alert and cooperative. Identified by name and date of . RN provided verbal consent for evaluation. Pt's present. Objective Current diet: Tube Feeding Tube feeding formula: Isosource 1.5; Route of feeding: Per J Tube; Tube feeding schedule: Continuous; Tube feeding continous initial Rate (ml/hr): 20; Advance by (ml): 10; Advance every (hr): 12; Tube feeding continuous goal rate (mL/... Adult diet Diet texture: Clear liquid; Other restriction(s): No carbonated beverages Respiratory Status: room air Vitals: 04/15/25 0736 BP: 132/70 Pulse: 87 Resp: 19 Temp: 36.4 ??C (97.5 ??F) SpO2: 97% Lab Results Component Value Date WBC 9.12 04/15/2025 Lab Results Component Value Date PLT 224 04/15/2025 PLT 170 04/14/2025 PLT 164 04/13/2025 Relevant Imaging: XR Chest findings/impressions: No pneumothorax. Right basilar pleural thickening versus minimal effusion is stable compared to prior. No new consolidation. Esophagram: Postoperative changes of Roderick Romero esophagectomy. No definite evidence of contrast leak though limited evaluation of the esophagus due to aspiration and limited opacification of the esophagus on current exam. No CT head results found for the past 14 days No MRI head results found for the past 14 days Demetrio Coma Scale Score: [place] Coma Scale Score: 15 Direction Following: Follows 1 step directions Oral Mechanism Report: Dentition: edentulous Oral hygiene: WFL Focused Cranial Nerve Exam: Trigeminal Nerve (V): Jaw posture at rest: closed Jaw Range of Motion: adequate Jaw Deviation on Opening: None Jaw Strength on Opening: not assessed Facial Nerve (VII): Facial symmetry at rest: symmetrical Facial symmetry during movement: symmetrical Labial symmetry at rest: symmetrical Labial ROM-Retraction:adequate Labial ROM-Protrusion: adequate Alternating Labial Retraction/Protrusion: adequate Glossopharyngeal (IX): Palatal symmetry at rest:symmetrical Palatal symmetry during Phonation: symmetrical Resonance: normal Vagus (X): Loudness: adequate Pitch: appropriate Vocal quality: appropriate Spinal Accessory (XI): Shoulder Shrug: symmetry Hypoglossal Nerve (XII): Lingual symmetry at rest: Symmetrical Lingual conditions: Normal Lingual symmetry: Symmetrical Lingual ROM: adequate Lingual speed in Alternating Movements: adequate Laryngeal Function Exam: Secretion Management: adequate Vocal Quality: WFL Cough: - Volitional not assessed - Reflexive not elicited with PO trials Oral Care Completed: no Oral Feeding Trials: Positionin degrees, upright Feeding assistance: independent, self-fed Consistencies Administered: thin liquid via cup Oral Stage: adequate anterior oral containment, adequate labial seal around utensil/straw, and adequate oral clearance Pharyngeal Stage: no overt s/sx of aspiration and no patterns of pharyngeal dysphagia 90 mL water test (Jacinda & Leler, 2014): did not assess 2/2 aspiration documented during esophagram on 04/13/25. Chronic dysphagia/aspiration/aspiration PNA risk factors: GERD, Tobacco use disorder esophageal cancer, CVA, TIAs Clinical signs of possible chronic dysphagia: aspiration during esophagram Acute dysphagia/aspiration/aspiration PNA risk factors: s/p Roderick Romero esophagectomy Assessment Summary: Patient presents with no overt s/sx of aspiration with thin liquids in setting of significant chronic and acute dysphagia risk factors. Aspiration documented during esophagram on 04/13/25. Team ok with liquid intake only at this time. MBS study indicated to r/o pharyngeal dysphagia given known h/o aspiration post operatively. Prognosis: Good for improved function with skilled speech pathology services focusing on stated goals. Patient Education: Pt acknowledges information provided verbally. Results and recommendations of this evaluation were communicated to: RN/Team Plan / Recommendations F/u Imaging: MBS [employer] Goals: Consume safest, least restrictive PO diet without acute dysphagia related pulmonary compromise. Short Term Goals: Participate in MBS to assess swallowing physiology and establish a treatment plan. Electronically Signed by: Marcelo Talavera - 04/15/2025 - 9:31 AM [1] Patient Active Problem List Diagnosis Stroke (CMS/HCC) HLD (hyperlipidemia) GERD (gastroesophageal reflux disease) JUAN DIEGO (obstructive sleep apnea) Former smoker Obesity Electrolyte abnormality Feeding difficulties Hypothyroid Esophageal cancer Crohn disease (CMS/HCC) Respiratory insufficiency Hypertension BPH (benign prostatic hyperplasia) Anemia Thrombocytopenia (CMS/HCC) [2] Past Medical History: Diagnosis Date Esophageal cancer Hypothyroidism Sleep apnea Stroke (CMS/HCC) 10/25/2024 [3] Past Surgical History: Procedure Laterality Date BACK SURGERY x4 LUMBAR FUSION PEG TUBE REMOVAL 11/2024 SKIN CANCER EXCISION x2 * Query Clarification Note - Everett Beyer DO - 04/15/2025 8:39 AM EST Physician Clarification Please review the following and provide your response below. 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 [] Unable to determine This documentation will become part of the patient's medical record. * Care Plan - Scott De La Cruz RN - 04/15/2025 8:00 AM EST Problem: Adult Inpatient Plan of Care Goal: Plan of Care Review Outcome: Ongoing, Progressing Flowsheets (Taken 04/15/2025 0800) Progress: improving Outcome Evaluation: Pt verbalizes understanding of care plan. Plan of Care Reviewed With: patient Goal: Patient-Specific Goal (Individualized) Outcome: Ongoing, Progressing Goal: Absence of Hospital-Acquired Illness or Injury Outcome: Ongoing, Progressing Goal: Optimal Comfort and Wellbeing Outcome: Ongoing, Progressing Problem: Infection Goal: Absence of Infection Signs and Symptoms Outcome: Ongoing, Progressing Problem: Fall Injury Risk Goal: Absence of Fall and Fall-Related Injury Outcome: Ongoing, Progressing Problem: Surgery Nonspecified Goal: Absence of Bleeding Outcome: Ongoing, Progressing Goal: Effective Bowel Elimination Outcome: Ongoing, Progressing Goal: Fluid and Electrolyte Balance Outcome: Ongoing, Progressing Goal: Blood Glucose Level Within Target Range Outcome: Ongoing, Progressing Goal: Optimal Pain Control and Function Outcome: Ongoing, Progressing Goal: Nausea and Vomiting Relief Outcome: Ongoing, Progressing Goal: Effective Urinary Elimination Outcome: Ongoing, Progressing Goal: Effective Oxygenation and Ventilation Outcome: Ongoing, Progressing Problem: Skin Injury Risk Increased Goal: Skin Health and Integrity Outcome: Ongoing, Progressing * Care Plan - Jeanie Be RN - 04/14/2025 11:48 PM EST Problem: Adult Inpatient Plan of Care Goal: Plan of Care Review Outcome: Ongoing, Progressing Flowsheets (Taken 04/14/2025 2348) Progress: improving Plan of Care Reviewed With: patient spouse Goal: Patient-Specific Goal (Individualized) Outcome: Ongoing, Progressing Flowsheets (Taken 04/14/20252044) Patient/Family-Specific Goals (Include Timeframe): Patient will remain free from falls or injury overnight Individualized Care Needs: Safety Anxieties, Fears or Concerns: None expressed Goal: Absence of Hospital-Acquired Illness or Injury Outcome: Ongoing, Progressing Goal: Optimal Comfort and Wellbeing Outcome: Ongoing, Progressing Problem: Infection Goal: Absence of Infection Signs and Symptoms Outcome: Ongoing, Progressing Problem: Fall Injury Risk Goal: Absence of Fall and Fall-Related Injury Outcome: Ongoing, Progressing Problem: Surgery Nonspecified Goal: Absence of Bleeding Outcome: Ongoing, Progressing Goal: Effective Bowel Elimination Outcome: Ongoing, Progressing Goal: Fluid and Electrolyte Balance Outcome: Ongoing, Progressing Goal: Blood Glucose Level Within Target Range Outcome: Ongoing, Progressing Goal: Optimal Pain Control and Function Outcome: Ongoing, Progressing Goal: Nausea and Vomiting Relief Outcome: Ongoing, Progressing Goal: Effective Urinary Elimination Outcome: Ongoing, Progressing Goal: Effective Oxygenation and Ventilation Outcome: Ongoing, Progressing Problem: Skin Injury Risk Increased Goal: Skin Health and Integrity Outcome: Ongoing, Progressing * Progress Notes - Domenico Buckley RN - 04/14/2025 3:32 PM EST Images from the original note were not included. Wound Care Consult Visit Date: 04/14/2025 Patient Name: Dino Cook Date of : 1955 Admit Date: 04/06/2025 Reason for Consult: IP Wound Orders (From admission, onward) Start Ordered 04/13/25 1340 Wound ostomy eval and treat Upper Abdomen Surgical Once Comments: Blister on LLQ, patient unaware of where it came from. Potentially PI from j tube Question Answer Comment Reason for consult: Wound/pressure injury Instructions: Prior to sending evaluation & treat order, place wound/ostomy LDA, complete a wound/ostomy assessment, and consider taking a photograph to document. 04/13/25 1342 Wound History: admitted 04/06/2025 for postoperative management following minimally invasive Roderick Romero esophagectomy with J-tube placement for esophageal cancer, currently recovering with ongoing NPO status, J-tube feeds, and management of anemia, thrombocytopenia, and electrolyte abnormalities Photo on 04/13: Wound Assessment: Wound 04/13/25 Pressure Injury Abdomen Left;Lower (Active) Date First Assessed/Time First Assessed: 04/13/25 1214 Present on Original Admission: No Primary Wound Type: Pressure Injury Verified by WOCN?: Verified Pressure Injury Stage: Deep Tissue Injury 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 Assessments 04/14/2025 1:40 PM Wound Image Wound Assessment Purple;Red;Painful Margins Well-defined edges Catie-Wound Assessment Intact Wound Length (cm) 3 cm Wound Width (cm) 4 cm Wound Surface Area (cm^2) 9.42 cm^2 Drainage Amount None Treatments Cleansed Dressing Foam;Silicone dressing Dressing Changed New Dressing Status Open to air Pressure Injury Stage Deep Tissue Active Orders Date Order Priority Status Authorizing Provider 04/14/25 1525 Apply/Change Wound Dressing Left;Lower Abdomen Routine Active Everett Beyer D, DO - Dressing Type: Other Dressings - Other: Other (Comment) - Other dressing (comment):: wash area with soap and water and pat dry apply polymem and allevyn change daily Wound Team Summary Assessment: pt seen while up in the recliner, assessment revealed an area of red/purple blistering painful and non blanching @5 oclock from J-tube insertion site, previous photo from 04/13 shows indentation of tubing and clamp, when dressing was removed, consistent with HAPI DTI d/t outside medical sales representative, polymem and allevyn applied, staff have also placed a tubing stabilizer Wound Team Plan: Wound care will follow up at regular intervals while inpatient; bedside nursing tofollow wound care recommendations as ordered and please re- consult sooner for new changes or concerns prior to follow up. Domenico Buckley RN CWOCN 04/14/2025 3:32 PM * Care Plan - Domenico Buckley RN - 04/14/2025 3:31 PM EST Problem: Skin Injury Risk Increased Goal: Skin Health and Integrity Outcome: Ongoing, Progressing Intervention: Optimize Skin Protection Flowsheets (Taken 04/14/2025 1531) Skin Protection: silicone foam dressing in place Patient evaluated by [facility] nurse, individualized recommendations placed and care plan interventions updated; see wound care note for details regarding recommendations to support optimal wound healing. * Progress Notes - Mario Alberto Franklin MD - 04/14/2025 8:06 AM EST Images from the original note were not included. [facility] Department of Surgery Section of Thoracic Surgery ICU Progress Note 04/14/25 Edwin Cook History of Present Illness Edwin Cook is a 70 y.o. male 8 Days Post-Op from minimally invasive Roderick Romero esophagectomy and j-tube insertion. Procedures this admission 04/06/2025: Bronch, EGD with NGT insertion, Minimally invasive [place] Romero esophagectomy, Take down of gastrostomy tube, J tube insertion Events of last 24 hours NAEON. UGI yesterday without anastomotic leak but did show signs of aspiration. Pain controlled. NGT out and tolerating sips of CLD. SUZAN drain with serous output. Labs stable. Relevant review of systems was obtained as able and is negative unless stated above in HPI. Physical Exam: Visit Vitals BP 138/70 Pulse 71 Temp 36.6 ??C (97.9 ??F) Ht 1.829 m (6') Wt 94.5 kg (208 lb 5.4 oz) SpO2 94% BMI 28.26 kg/m?? General: alert and oriented, appropriate HEENT: normocephalic, atraumatic, normal external ears and nose Eyes: no scleral icterus, normal conjunctiva Neck: supple, no trachea deviation Lungs: symmetric chest rise, non-labored breathing Heart: Regular rate, well perfused Abdomen: soft NT/ND, Extremities: no peripheral edema Skin: no rash, no cyanosis and warm to touch Psychiatric: oriented to person/place/time and normal mood/affect Intake/Output Summary (Last 24 hours) at 04/14/2025 0806 Last data filed at 04/14/2025 0350 Gross per 24 hour Intake 1383.33 ml Output 675 ml Net 708.33 ml Lines/Drains/Tubes: Patient Lines/Drains/Airways Status Active Airway None Output by Drain (mL) 04/12/25 0700 - 04/12/25 18504/12/25 1900 - 04/13/25 0659 04/13/25 07 - 04/13/25 18504/13/25 1900 - 04/14/25 0659 04/14/25 0700 - 04/14/25 0806 Closed/Suction Drain Right;Lateral Pleural Bulb 30 0 20 55 Labs in last 18 hours: CBC WBC 8.82 Hb 11.8 (L) Plt 170 Hct 34.8 (L) ANC ?? INR ??, PTT ??, Anti-Xa ?? MCV 97 BMP Na 139 Cl 104 BUN 17 Glu 115 (H) K 3.9 Co2 24 Cr 0.66 (L) Ca 8.5 (L) iCa ?? Mg 2.0, Phos 4.0 Lactate ?? LFT AST ?? AlkPhos ?? T Prot ?? ALK ?? Bili ?? Alb ?? D.Bili ?? Lab Trends: H/H Results from last 7 days Lab Units 04/14/25 03304/13/25 0525 04/12/25 0423 HEMOGLOBIN g/dL 11.8* 12.9* 12.0* HEMATOCRIT % 34.8* 37.4* 35.6* INR Cr Results from last 7 days Lab Units 04/14/25 03304/13/25 0504/12/25 0423 CREATININE mg/dL 0.66* 0.57* 0.59* Medications reviewed. Vital signs reviewed. Labs reviewed. Radiography reviewed. CXR: stable Assessment and Plan: Principal Problem: Esophageal cancer Active Problems: HLD (hyperlipidemia) GERD (gastroesophageal reflux disease) JUAN DIEGO (obstructive sleep apnea) Former smoker Obesity Electrolyte abnormality Feeding difficulties Hypothyroid Respiratory insufficiency Hypertension BPH (benign prostatic hyperplasia) Anemia Thrombocytopenia (CMS/HCC) Present on Admission: Esophageal cancer Feeding difficulties GERD (gastroesophageal reflux disease) HLD (hyperlipidemia) Hypothyroid Obesity JUAN DIEGO (obstructive sleep apnea) Respiratory insufficiency Electrolyte abnormality Hypertension BPH (benign prostatic hyperplasia) Anemia Thrombocytopenia (CMS/HCC) Plan: - CLD - Speech therapy swallow evaluation (no instrumentation; swallowing exercises, will stay on CLD) - Liquid meds via j-tube only - no crushed/powdered meds - J-tube feeds at goal of 65 cc/hr - HLIV - SUZAN to bulb suction - Abdominal binder - Progressive Mario Alberto Franklin MD, MS4 Thoracic Surgery Cosigned by Everett Beyer DO at 04/15/2025 8:38 AM EST Associated attestation - Everett Beyer DO - 04/15/2025 8:38 AM EST I saw and evaluated the patient with the resident/fellow. I discussed the case with the resident/fellow and agree with the findings and plan as documented. * Care Plan - Jeanie Be RN - 04/14/2025 1:20 AM EST Problem: Adult Inpatient Plan of Care Goal: Plan of Care Review Outcome: Ongoing, Progressing Flowsheets Taken 04/14/2025 0120 by Jeanie Be RN Progress: improving Taken 04/13/2025 1118 by Khoi Flores RN Plan of Care Reviewed With: patient Goal: Patient-Specific Goal (Individualized) Outcome: Ongoing, Progressing Goal: Absence of Hospital-Acquired Illness or Injury Outcome: Ongoing, Progressing Goal: Optimal Comfort and Wellbeing Outcome: Ongoing, Progressing Problem: Infection Goal: Absence of Infection Signs and Symptoms Outcome: Ongoing, Progressing Problem: Fall Injury Risk Goal: Absence of Fall and Fall-Related Injury Outcome: Ongoing, Progressing Problem: Surgery Nonspecified Goal: Absence of Bleeding Outcome: Ongoing, Progressing Goal: Effective Bowel Elimination Outcome: Ongoing, Progressing Goal: Fluid and Electrolyte Balance Outcome: Ongoing, Progressing Goal: Blood Glucose Level Within Target Range Outcome: Ongoing, Progressing Goal: Optimal Pain Control and Function Outcome: Ongoing, Progressing Goal: Nausea and Vomiting Relief Outcome: Ongoing, Progressing Goal: Effective Urinary Elimination Outcome: Ongoing, Progressing Goal: Effective Oxygenation and Ventilation Outcome: Ongoing, Progressing Problem: Skin Injury Risk Increased Goal: Skin Health and Integrity Outcome: Ongoing, Progressing * Consults - Elizabeth Bateman RD - 04/13/2025 3:12 PM EST Adult Nutrition Evaluation Note Edwin Cook 70 y.o. male CSN: [id number] Room/Bed 119/119A Nutrition evaluation type: follow-up Reason for evaluation: Hospital course: 70-year-old male with PMH of Crohn's Disease, Hypothyroidism, HLD, JUAN DIEGO, GERD, tobacco use, obesity, esophageal cancer, CVA, and TIAs who underwent Roderick Romero Esophagectomy with Thoracic Surgery. Full list of procedures on 04/06: Bronch, EGD with NGT insertion, Minimally invasive Dallas Romero esophagectomy, Take down of gastrostomy tube, J tube insertion Past medical/ surgical history: has a past medical history of Esophageal cancer, Hypothyroidism, Sleep apnea, and Stroke ([facility]/HCC) (10/25/2024). Social history: Additional comments: 04/07: Pt reports ~50# wt loss from September-Jan r/t dysphagia. He had PEG placed at end of Jan and states he has had no further weight loss since starting TF. His reported home TF regimen has been 3-4 cartons of Boost [facility] daily and has been able to take in po diet over the past week since finishing chemo/rad tx. 04/13: Provider in room with pt at time of visit. Vitals and Basic Assessment: BP: (!) 142/74 Temp: (!) 36.2 ??C (97.2 ??F) Oxygen Therapy: None (Room air) O2 Delivery Method: Nasal cannula [place] Coma Scale Score: 15 José Luis Scale Score: 21 Markus/Cubbin Pressure Risk Score: 41 Most Recent BM Date: 04/12/25 GI Symptoms: Constipation Edema: Generalized, Right lower extremity, Left lower extremity Allergies: NKA Medications: Current Scheduled Medications[1] Current Continuous Medications[2] Current PRN Medications[3] Meds were reviewed: Yes Labs: Labs in last 18 hours CBC WBC 9.14 Hb 12.9 (L) Plt 164 Hct 37.4 (L) ANC ?? INR ??, PTT ??, Anti-Xa ?? BMP Na 136 Cl 103 BUN 14 Glu 142 (H) K 3.6 Co2 22 Cr 0.57 (L) Ca 8.5 (L) iCa ?? Mg 2.0, Phos 3.4 Lactate ?? LFT AST ?? AlkPhos ?? T Prot ?? ALK ?? Bili ?? Alb ?? D.Bili ?? Anthropometrics: Height: 182.9 cm (6') Weight: 94.5 kg (208 lb 5.4 oz) BMI (Calculated): 28.25 Weight Evaluation: Obese-Class 1 (BMI 30-34.9) Weight History: reported UBW: 278# [place] Body Weight (kg): 80.9 Percent [place] Body Weight: 117 Adjusted Body Weight (kg): 86.7 Estimated Needs: Kcal/ K-27 Kcal Provided: 5783-8772 Kcal Needs Based On: Adjusted weight Gm Protein/ Kg : 1.2-1.5 Protein Provided: 104-130 Protein Needs Based On: Adjusted weight Metabolic Cart Study Results: Current Nutrition Intake: Diet Supplements: None Diet Order: NPO Enteral Nutrition Formula/Solution: Isosource 1.5 Tube Feeding Modular: Soluble fiber powder Tube Feeding Route: J-tube Goal Tube Feed Rate (Continuous or Intermittent): 65 Average Infusion: unable to determine att Diet Experience and Nutrition History: Diet Education Provided: Will monitor Pertinent home medications: Episcopalian needs: Nutrition Focused Physical Exam: Physical exam performed on (date): 04/07 Temples (muscles): Mild Clavicle (muscle): None Shoulder (muscle): None Interosseous (muscle): None Thigh (muscle): None Orbital (fat): None Triceps (fat): None Assessment of Malnutrition: Malnutrition Identified: No Nutrition Problem: Inadequate oral intake related to esophagectomy as evidenced by NPO. Status of Nutrition Diagnosis: Ongoing Nutrition Interventions and Recommendations: - Current TF: Isosource 1.5 with goal of 65 mL/hr (Provides x 22 hrs (1430 mL): 2145 kcal, 97 gm prot, 22 gm fiber, 1087 mL H2O). - Additional ~1100 mL free water daily or per MD discretion. Recommend administering no more than 150 mL at a time via j-tube. Nutrition Monitoring and Goals: - TF initiation (met) -Tolerate >80% prescribed (new) - monitor weight (ongoing) Acuity Level: [address] [1] acetaminophen, 960 mg, Per J Tube, q6h CHAVA aspirin, 81 mg, Per J Tube, Daily bisacodyl, 10 mg, Rectal, Daily enoxaparin, 40 mg, Subcutaneous, Daily Fiber, 1 packet, Per J Tube, BID ibuprofen, 400 mg, Per J Tube, q6h CHAVA Levothyroxine Sodium, 200 mcg, Per J Tube, q AM mometasone-formoterol, 2 puff, Inhalation, BID omeprazole-sodium bicarbonate, 40 mg, Per J Tube, Daily senna, 8.8 mg, Per J Tube, Nightly [2] [3] PRN medications: hydrALAZINE OR hydrALAZINE, labetalol OR labetalol, oxyCODONE OR oxyCODONE, phenol * Care Plan - Khoi Flores RN - 04/13/2025 11:22 AM EST Problem: Adult Inpatient Plan of Care Goal: Plan of Care Review Outcome: Ongoing, Progressing Flowsheets (Taken 04/13/2025 1118) Progress: improving Plan of Care Reviewed With: patient Goal: Patient-Specific Goal (Individualized) Outcome: Ongoing, Progressing Goal: Absence of Hospital-Acquired Illness or Injury Outcome: Ongoing, Progressing Goal: Optimal Comfort and Wellbeing Outcome: Ongoing, Progressing Intervention: Monitor Pain and Promote Comfort Flowsheets (Taken 04/13/2025 1118) Pain Management Interventions: care clustered Problem: Infection Goal: Absence of Infection Signs and Symptoms Outcome: Ongoing, Progressing Intervention: Prevent or Manage Infection Flowsheets (Taken 04/13/2025 1118) Infection Management: aseptic technique maintained Fever Reduction/Comfort Measures: lightweight bedding Isolation Precautions: precautions maintained Problem: Fall Injury Risk Goal: Absence of Fall and Fall-Related Injury Outcome: Ongoing, Progressing Intervention: Identify and Manage Contributors Flowsheets (Taken 04/13/2025 111) Medication Review/Management: medications reviewed Self-Care Promotion: independence encouraged Intervention: Promote Injury-Free Environment Flowsheets (Taken 04/13/20251117) Safety Promotion/Fall Prevention: activity supervised Problem: Surgery Nonspecified Goal: Absence of Bleeding Outcome: Ongoing, Progressing Intervention: Monitor and Manage Bleeding Flowsheets (Taken 04/13/20251117) Bleeding Management: dressing monitored Goal: Effective Bowel Elimination Outcome: Ongoing, Progressing Intervention: Enhance Bowel Motility and Elimination Flowsheets (Taken 04/11/2025 2000 by Daily Romo RN) Bowel Elimination Management: relaxation techniques promoted Goal: Fluid and Electrolyte Balance Outcome: Ongoing, Progressing Intervention: Monitor and Manage Fluid and Electrolyte Balance Flowsheets (Taken 04/13/20251117) Fluid/Electrolyte Management: electrolyte supplement initiated Goal: Blood Glucose Level Within Target Range Outcome: Ongoing, Progressing Intervention: Optimize Glycemic Control Flowsheets (Taken 04/13/20251117) Hyperglycemia Management: blood glucose monitored Hypoglycemia Management: blood glucose monitored Goal: Optimal Pain Control and Function Outcome: Ongoing, Progressing Intervention: Prevent or Manage Pain Flowsheets (Taken 04/13/20251117) Pain Management Interventions: care clustered Diversional Activities: television Goal: Nausea and Vomiting Relief Outcome: Ongoing, Progressing Goal: Effective Urinary Elimination Outcome: Ongoing, Progressing Intervention: Monitor and Manage Urinary Retention Flowsheets (Taken 04/13/20251117) Urinary Elimination Promotion: frequent voiding encouraged Goal: Effective Oxygenation and Ventilation Outcome: Ongoing, Progressing Intervention: Optimize Oxygenation and Ventilation Flowsheets (Taken 04/13/20251117) Cough And Deep Breathing: done independently per patient * Progress Notes - Maria Alejandra Carpio RN - 04/13/2025 11:03 AM EST Case Management Adult Progress Note Edwin Cook 70 y.o. male CSN: [id number] Admission: 04/06/2025 5:25 AM Primary Problem: Esophageal cancer Anticipated Discharge Date: 1-2 days Additional Comments: LEEANNE RODRIGUEZ reviewed chart and met with primary team to discuss plan of care. Patient is scheduled for UGI today and is not medically ready for discharge at this time. RN CM will continue to follow. Maria Alejandra Carpio, RN * Progress Notes - Lazarus Weaver - 04/13/2025 7:31 AM EST Images from the original note were not included. [facility] Department of Surgery Section of Thoracic Surgery ICU Progress Note 04/13/25 Edwin Cook History of Present Illness Edwin Cook is a 70 y.o. male 7 Days Post-Op from minimally invasive [place] Romero esophagectomy and j-tube insertion. Procedures this admission 04/06/2025: Bronch, EGD with NGT insertion, Minimally invasive Dallas Romero esophagectomy, Take down of gastrostomy tube, J tube insertion Events of last 24 hours NAEON. Has ambulated in the halls yet. NGT patient and functioning appropriately. Patient at goal feeds, endorsing BM and passing gas. Pain better controlled than yesterday. AFVSS on RA. SUZAN drain seros output. Relevant review of systems was obtained as able and is negative unless stated above in HPI. Physical Exam: Visit Vitals BP (!) 165/62 (BP Location: Left arm, Patient Position: Sitting) Pulse 64 Temp 36.3 ??C (97.3 ??F) (Oral) Ht 1.829 m (6') Wt 94.5 kg (208 lb 5.4 oz) SpO2 95% BMI 28.26 kg/m?? General: alert and oriented, appropriate HEENT: normocephalic, atraumatic, normal external ears and nose, NGT bridled in nare Eyes: no scleral icterus, normal conjunctiva Neck: supple, no trachea deviation Lungs: symmetric chest rise, non-labored breathing Heart: Regular rate, well perfused Abdomen: soft NT/ND, Extremities: no peripheral edema Skin: no rash, no cyanosis and warm to touch Psychiatric: oriented to person/place/time and normal mood/affect Intake/Output Summary (Last 24 hours) at 04/13/2025 0732 Last data filed at 04/13/2025 0335 Gross per 24 hour Intake 280 ml Output 430 ml Net -150 ml Lines/Drains/Tubes: Patient Lines/Drains/Airways Status Active Airway None Output by Drain (mL) 04/11/25 0700 - 04/11/25 1859 04/11/25 1900 - 04/12/25 0659 04/12/25 0700 - 04/12/25 1859 04/12/25 1900 - 04/13/25 0659 04/13/25 0700 - 04/13/25 0732 Closed/Suction Drain Right;Lateral Pleural Bulb 45 10 30 0 Labs in last 18 hours: CBC WBC 9.14 Hb 12.9 (L) Plt 164 Hct 37.4 (L) ANC ?? INR ??, PTT ??, Anti-Xa ?? MCV 97 BMP Na 136 Cl 103 BUN 14 Glu 142 (H) K 3.6 Co2 22 Cr 0.57 (L) Ca 8.5 (L) iCa ?? Mg 2.0, Phos 3.4 Lactate ?? LFT AST ?? AlkPhos ?? T Prot ?? ALK ?? Bili ?? Alb ?? D.Bili ?? Lab Trends: H/H Results from last 7 days Lab Units 04/13/25 0525 04/12/25 0423 04/11/25 0351 HEMOGLOBIN g/dL 12.9* 12.0* 12.7* HEMATOCRIT % 37.4* 35.6* 36.7* INR Cr Results from last 7 days Lab Units 04/13/25 0525 04/12/25 0423 04/11/25 0351 CREATININE mg/dL 0.57* 0.59* 0.59* Medications reviewed. Vital signs reviewed. Labs reviewed. Radiography reviewed. CXR: stable Assessment and Plan: Principal Problem: Esophageal cancer Active Problems: HLD (hyperlipidemia) GERD (gastroesophageal reflux disease) JUAN DIEGO (obstructive sleep apnea) Former smoker Obesity Electrolyte abnormality Feeding difficulties Hypothyroid Respiratory insufficiency Hypertension BPH (benign prostatic hyperplasia) Anemia Thrombocytopenia (CMS/HCC) Present on Admission: Esophageal cancer Feeding difficulties GERD (gastroesophageal reflux disease) HLD (hyperlipidemia) Hypothyroid Obesity JUAN DIEGO (obstructive sleep apnea) Respiratory insufficiency Electrolyte abnormality Hypertension BPH (benign prostatic hyperplasia) Anemia Thrombocytopenia (CMS/HCC) Plan: - NG to LiWS - Strict NPO - Liquid meds via j-tube only - no crushed/powdered meds - J-tube feeds at goal of 65 cc/hr - HLIV - SUZAN to bulb suction - Abdominal binder - Progressive - Plan for UGI with water soluble contrast today -Plan to advance to sips and d/c NG if imaging is as expected Lazarus Weaver, MS4 Thoracic Surgery Cosigned by Everett Beyer DO at 04/15/2025 8:38 AM EST Associated attestation - Everett Beyer DO - 04/15/2025 8:38 AM EST I saw and evaluated the patient with the medical/SCREEN MACHINE OPERATOR/PA student. I discussed the case with the medical/SCREEN MACHINE OPERATOR/PA student and agree with the findings and plan as documented. I personally performed the Examand Medical Decision Making. Everett Beyer DO * Care Plan - Jessica Daniels RN - 04/13/2025 1:57 AM EST Problem: Adult Inpatient Plan of Care Goal: Plan of Care Review Outcome: Ongoing, Progressing Flowsheets (Taken 04/13/2025 0156) Plan of Care Reviewed With: patient Goal: Patient-Specific Goal (Individualized) Outcome: Ongoing, Progressing Flowsheets (Taken 04/12/20252049) Patient/Family-Specific Goals (Include Timeframe): Patient will remain free of falls Individualized Care Needs: I/O monitoring Anxieties, Fears or Concerns: getting strenght back Goal: Absence of Hospital-Acquired Illness or Injury Outcome: Ongoing, Progressing Intervention: Identify and Manage Fall Risk Flowsheets (Taken 04/12/20252049) Safety Promotion/Fall Prevention: activity supervised assistive device/personal items within reach clutter-free environment maintained fall prevention program maintained lighting adjusted nonskid shoes/slippers when out of bed toileting scheduled safety round/check completed room organization consistent Goal: Optimal Comfort and Wellbeing Outcome: Ongoing, Progressing Problem: Infection Goal: Absence of Infection Signs and Symptoms Outcome: Ongoing, Progressing Intervention: Prevent or Manage Infection Flowsheets (Taken 04/11/20251999 by Daily Romo RN) Fever Reduction/Comfort Measures: lightweight bedding lightweight clothing Problem: Fall Injury Risk Goal: Absence of Fall and Fall-Related Injury Outcome: Ongoing, Progressing Intervention: Identify and Manage Contributors Flowsheets (Taken 04/11/20251999 by Daily Romo, RN) Medication Review/Management: medications reviewed Problem: Surgery Nonspecified Goal: Absence of Bleeding Outcome: Ongoing, Progressing Goal: Effective Bowel Elimination Outcome: Ongoing, Progressing Goal: Fluid and Electrolyte Balance Outcome: Ongoing, Progressing Goal: Blood Glucose Level Within Target Range Outcome: Ongoing, Progressing Intervention: Optimize Glycemic Control Flowsheets (Taken 04/11/20251999 by Daily Romo, RN) Hyperglycemia Management: blood glucose monitored Goal: Optimal Pain Control and Function Outcome: Ongoing, Progressing Goal: Nausea and Vomiting Relief Outcome: Ongoing, Progressing Goal: Effective Urinary Elimination Outcome: Ongoing, Progressing Intervention: Monitor and Manage Urinary Retention Flowsheets (Taken 04/11/20251999 by Daily Romo, RN) Urinary Elimination Promotion: frequent voiding encouraged Goal: Effective Oxygenation and Ventilation Outcome: Ongoing, Progressing Intervention: Optimize Oxygenation and Ventilation Flowsheets (Taken 04/12/20252049) Activity Management: activity adjusted per tolerance * Progress Notes - Alla Weaverj - 04/12/2025 7:53 AM EST Images from the original note were not included. [facility] Department of Surgery Section of Thoracic Surgery ICU Progress Note 04/12/25 Edwin Cook History of Present Illness Edwin Cook is a 70 y.o. male 6 Days Post-Op from minimally invasive [place] Romero esophagectomy and j-tube insertion. Procedures this admission 04/06/2025: Bronch, EGD with NGT insertion, Minimally invasive Roderick Romero esophagectomy, Take down of gastrostomy tube, J tube insertion Events of last 24 hours NAEON. Has not ambulated in the halls yet. NGT patient and functioning appropriately. Patient at goal feeds without BM, endorses passing gas. AFVSS on RA. SUZAN drain seros output. Relevant review of systems was obtained as able and is negative unless stated above in HPI. Physical Exam: Visit Vitals BP (!) 155/71 (BP Location: Right arm, Patient Position: Sitting) Pulse 64 Temp 36.4 ??C (97.5 ??F) (Oral) Ht 1.829 m (6') Wt 107 kg (236 lb 8.9 oz) SpO2 95% BMI 32.08 kg/m?? General: alert and oriented, appropriate HEENT: normocephalic, atraumatic, normal external ears and nose, NGT bridled in nare Eyes: no scleral icterus, normal conjunctiva Neck: supple, no trachea deviation Lungs: symmetric chest rise, non-labored breathing Heart: Regular rate, well perfused Abdomen: soft NT/ND, Extremities: no peripheral edema Skin: no rash, no cyanosis and warm to touch Psychiatric: oriented to person/place/time and normal mood/affect Intake/Output Summary (Last 24 hours) at 04/12/2025 0754 Last data filed at 04/12/2025 0320 Gross per 24 hour Intake 1085 ml Output 1205 ml Net -120 ml Lines/Drains/Tubes: Patient Lines/Drains/Airways Status Active Airway None Output by Drain (mL) 04/10/25 0700 - 04/10/25 18504/10/25 1900 - 04/11/25 0659 04/11/25 0700 - 04/11/25 1859 04/11/25 1900 - 04/12/25 0659 04/12/25 0700 - 04/12/25 0754 Closed/Suction Drain Right;Lateral Pleural Bulb 30 45 10 Labs in last 18 hours: CBC WBC 7.30 Hb 12.0 (L) Plt 146 (L) Hct 35.6 (L) ANC ?? INR ??, PTT ??, Anti-Xa ?? MCV 97 BMP Na 138 Cl 106 BUN 15 Glu 112 (H) K 3.7 Co2 24 Cr 0.59 (L) Ca 8.3 (L) iCa ?? Mg 2.0, Phos 4.1 Lactate ?? LFT AST ?? AlkPhos ?? T Prot ?? ALK ?? Bili ?? Alb ?? D.Bili ?? Lab Trends: H/H Results from last 7 days Lab Units 04/12/2542204/11/2535004/10/25 0043 HEMOGLOBIN g/dL 12.0* 12.7* 12.7* HEMATOCRIT % 35.6* 36.7* 36.5* INR Cr Results from last 7 days Lab Units 04/12/2542204/11/25 0351 04/10/25 0043 CREATININE mg/dL 0.59* 0.59* 0.60* Medications reviewed. Vital signs reviewed. Labs reviewed. Radiography reviewed. CXR: stable Assessment and Plan: Principal Problem: Esophageal cancer Active Problems: HLD (hyperlipidemia) GERD (gastroesophageal reflux disease) JUAN DIEGO (obstructive sleep apnea) Former smoker Obesity Electrolyte abnormality Feeding difficulties Hypothyroid Respiratory insufficiency Hypertension BPH (benign prostatic hyperplasia) Anemia Thrombocytopenia (CMS/HCC) Present on Admission: Esophageal cancer Feeding difficulties GERD (gastroesophageal reflux disease) HLD (hyperlipidemia) Hypothyroid Obesity JUAN DIEGO (obstructive sleep apnea) Respiratory insufficiency Electrolyte abnormality Hypertension BPH (benign prostatic hyperplasia) Anemia Thrombocytopenia (CMS/HCC) Plan: - NG to LiWS - Strict NPO - Liquid meds via j-tube only - no crushed/powdered meds - J-tube feeds at goal of 65 cc/hr - Bisacodyl 10 mg suppository and fiber powder to stimulate BM - HLIV - SUZAN to bulb suction - Abdominal binder - Progressive - Plan for UGI with water soluble contrast on 04/13 Lazarus Weaver, MS4 Thoracic Surgery Cosigned by Sona Schaefer MD at 04/12/2025 9:16 AM EST Associated attestation - Sona Schaefer MD - 04/12/2025 9:16 AM EST I saw and evaluated the patient with the medical/SCREEN MACHINE OPERATOR/PA student. I discussed the case with the medical/SCREEN MACHINE OPERATOR/PA student and agree with the findings and plan as documented. I personally performed the Examand Medical Decision Making. Attending Addendum: Patient interviewed and examined personally and with the resident/fellow/[employer] MINER/medical student. I reviewed the patient's history, exam, diagnosis, and the plan of treatment. I agree with the plan of care as follows: tube feeds at goal. Still no bowel movement but he is passing gas. He says he has had opioid induced constipation in the past. Will try suppository today and adding fiber to tube feeds. If still no bowel movement, will try mag citrate via J tube tomorrow. UGI tomorrow. Sona Kaur MD petroleum refinery operator Thoracic Surgery * Care Plan - Daily Romo RN - 04/12/2025 1:18 AM EST Problem: Adult Inpatient Plan of Care Goal: Plan of Care Review Outcome: Ongoing, Progressing Flowsheets (Taken 04/11/20252099) Progress: improving Plan of Care Reviewed With: patient Goal: Patient-Specific Goal (Individualized) Outcome: Ongoing, Progressing Flowsheets (Taken 04/11/20251999) Patient/Family-Specific Goals (Include Timeframe): Patient will remain free from falls and injury through this shift. Individualized Care Needs: safety measures Anxieties, Fears or Concerns: none stated Goal: Absence of Hospital-Acquired Illness or Injury Outcome: Ongoing, Progressing Intervention: Identify and Manage Fall Risk Flowsheets (Taken 04/11/20251999) Safety Promotion/Fall Prevention: activity supervised assistive device/personal items within reach clutter-free environment maintained fall prevention program maintained mobility aid in reach lighting adjusted nonskid shoes/slippers when out of bed room organization consistent safety round/check completed toileting scheduled Intervention: Prevent Skin Injury Flowsheets Taken 04/12/2025 by Jose Reyes Body Position: weight shifting Taken 04/11/20251999 by Daily Romo RN Skin Protection: incontinence pads utilized transparent dressing maintained Intervention: Prevent and Manage VTE (Venous Thromboembolism) Risk Flowsheets (Taken 04/11/20251999) VTE Prevention/Management: bilateral SCDs (sequential compression devices) off medication Intervention: Prevent Infection Flowsheets (Taken 04/11/20251999) Infection Prevention: environmental surveillance performed hand hygiene promoted personal protective equipment utilized rest/sleep promoted single patient room provided Goal: Optimal Comfort and Wellbeing Outcome: Ongoing, Progressing Intervention: Monitor Pain and Promote Comfort Flowsheets (Taken 04/11/20252125) Pain Management Interventions: medication (see MAR) care clustered pillow support provided position adjusted quiet environment facilitated relaxation techniques promoted rest Intervention: Provide Person-Centered Care Flowsheets (Taken 04/11/20251999) Trust Relationship/Rapport: care explained emotional support provided empathic listening provided questions answered questions encouraged reassurance provided thoughts/feelings acknowledged Problem: Fall Injury Risk Goal: Absence of Fall and Fall-Related Injury Outcome: Ongoing, Progressing Intervention: Identify and Manage Contributors Flowsheets (Taken 04/11/20251999) Medication Review/Management: medications reviewed Self-Care Promotion: independence encouraged BADL personal objects within reach BADL personal routines maintained Intervention: Promote Injury-Free Environment Flowsheets (Taken 04/11/20251999) Safety Promotion/Fall Prevention: activity supervised assistive device/personal items within reach clutter-free environment maintained fall prevention program maintained mobility aid in reach lighting adjusted nonskid shoes/slippers when out of bed room organization consistent safety round/check completed toileting scheduled Problem: Surgery Nonspecified Goal: Absence of Bleeding Outcome: Ongoing, Progressing Intervention: Monitor and Manage Bleeding Flowsheets (Taken 04/11/20251999) Bleeding Management: dressing monitored Goal: Effective Bowel Elimination Outcome: Ongoing, Progressing Intervention: Enhance Bowel Motility and Elimination Flowsheets (Taken 04/11/20251999) Bowel Elimination Management: relaxation techniques promoted Bowel Motility Enhancement: ambulation promoted Goal: Fluid and Electrolyte Balance Outcome: Ongoing, Progressing Intervention: Monitor and Manage Fluid and Electrolyte Balance Flowsheets (Taken 04/11/20251999) Fluid/Electrolyte Management: fluids provided Goal: Blood Glucose Level Within Target Range Outcome: Ongoing, Progressing Intervention: Optimize Glycemic Control Flowsheets (Taken 04/11/20251999) Hyperglycemia Management: blood glucose monitored Hypoglycemia Management: blood glucose monitored Goal: Optimal Pain Control and Function Outcome: Ongoing, Progressing Intervention: Prevent or Manage Pain Flowsheets Taken 04/11/20252125 Pain Management Interventions: medication (see MAR) care clustered pillow support provided position adjusted quiet environment facilitated relaxation techniques promoted rest Taken 04/11/20251999 Diversional Activities: television Goal: Nausea and Vomiting Relief Outcome: Ongoing, Progressing Goal: Effective Urinary Elimination Outcome: Ongoing, Progressing Intervention: Monitor and Manage Urinary Retention Flowsheets (Taken 04/11/20251999) Urinary Elimination Promotion: frequent voiding encouraged Goal: Effective Oxygenation and Ventilation Outcome: Ongoing, Progressing Intervention: Optimize Oxygenation and Ventilation Flowsheets Taken 04/12/2025 0000 by Jose Reyes Activity Management: up in chair Taken 04/11/20251999 by Daily Romo, RN Airway/Ventilation Management: airway patency maintained pulmonary hygiene promoted oxygen therapy provided Head of Bed (HOB) Positioning: HOB flat Cough And Deep Breathing: done independently per patient * Progress Notes - Lazarus Weaver - 04/11/2025 9:35 AM EST Images from the original note were not included. [facility] Department of Surgery Section of Thoracic Surgery ICU Progress Note 04/11/25 Edwin Cook History of Present Illness Edwin Cook is a 70 y.o. male 5 Days Post-Op from minimally invasive Roderick Romero esophagectomy and j-tube insertion. Procedures this admission 04/06/2025: Bronch, EGD with NGT insertion, Minimally invasive [place] Romero esophagectomy, Take down of gastrostomy tube, J tube insertion Events of last 24 hours NAEON. Has not ambulated in the halls yet. NGT patient and functioning appropriately. AFVSS on RA. SUZAN drain serous output. Moderate pain control. Passing flatus but no BM. Relevant review of systems was obtained as able and is negative unless stated above in HPI. Physical Exam: Visit Vitals BP (!) 175/65 Pulse 60 Temp 36.3 ??C (97.3 ??F) Ht 1.829 m (6') Wt 107 kg (236 lb 8.9 oz) SpO2 93% BMI 32.08 kg/m?? General: alert and oriented, appropriate HEENT: normocephalic, atraumatic, normal external ears and nose, NGT bridled in nare Eyes: no scleral icterus, normal conjunctiva Neck: supple, no trachea deviation Lungs: symmetric chest rise, non-labored breathing Heart: Regular rate, well perfused Abdomen: soft NT/ND, Extremities: no peripheral edema Skin: no rash, no cyanosis and warm to touch Psychiatric: oriented to person/place/time and normal mood/affect Intake/Output Summary (Last 24 hours) at 04/11/2025 0938 Last data filed at 04/11/2025 0750 Gross per 24 hour Intake 1678 ml Output 355 ml Net 1323 ml Lines/Drains/Tubes: Patient Lines/Drains/Airways Status Active Airway None Output by Drain (mL) 04/09/25 0700 - 04/09/25 1859 04/09/25 1900 - 04/10/25 0659 04/10/25 0700 - 04/10/25 1859 04/10/25 1900 - 04/11/25 0659 04/11/25 0700 - 04/11/25 0938 Closed/Suction Drain Right;Lateral Pleural Bulb 30 30 25 Labs in last 18 hours: CBC WBC 6.73 Hb 12.7 (L) Plt 141 (L) Hct 36.7 (L) ANC ?? INR ??, PTT ??, Anti-Xa ?? MCV 97 BMP Na 139 Cl 106 BUN 12 Glu 102 (H) K 3.8 Co2 24 Cr 0.59 (L) Ca 8.4 (L) iCa ?? Mg 2.1, Phos 3.7 Lactate ?? LFT AST ?? AlkPhos ?? T Prot ?? ALK ?? Bili ?? Alb ?? D.Bili ?? Lab Trends: H/H Results from last 7 days Lab Units 04/11/25 0351 04/10/25 0043 04/09/25 0501 HEMOGLOBIN g/dL 12.7* 12.7* 12.1* HEMATOCRIT % 36.7* 36.5* 39.4* INR Cr Results from last 7 days Lab Units 04/11/25 0351 04/10/25 0043 04/09/25 0501 CREATININE mg/dL 0.59* 0.60* 0.58* Medications reviewed. Vital signs reviewed. Labs reviewed. Radiography reviewed. CXR: stable Assessment and Plan: Principal Problem: Esophageal cancer Active Problems: HLD (hyperlipidemia) GERD (gastroesophageal reflux disease) JUAN DIEGO (obstructive sleep apnea) Former smoker Obesity Electrolyte abnormality Feeding difficulties Hypothyroid Respiratory insufficiency Hypertension BPH (benign prostatic hyperplasia) Anemia Thrombocytopenia (CMS/HCC) Present on Admission: Esophageal cancer Feeding difficulties GERD (gastroesophageal reflux disease) HLD (hyperlipidemia) Hypothyroid Obesity JUAN DIEGO (obstructive sleep apnea) Respiratory insufficiency Electrolyte abnormality Hypertension BPH (benign prostatic hyperplasia) Anemia Thrombocytopenia (CMS/HCC) Plan: - NG to LiWS - Strict NPO - Liquid meds via j-tube only - no crushed/powdered meds - Advance J-tube feeds 10 cc q12 hours, goal of 65 cc/hr - HLIV - SUZAN to bulb suction - Abdominal binder - Progressive - Plan for UGI with water soluble contrast on 04/13 Lazarus Weaver, MS4 Thoracic Surgery Cosigned by Sona Schaefer MD at 04/12/2025 7:39 AM EST Associated attestation - Sona Schaefer MD - 04/12/2025 7:39 AM EST I saw and evaluated the patient with the medical/SCREEN MACHINE OPERATOR/PA student. I discussed the case with the medical/SCREEN MACHINE OPERATOR/PA student and agree with the findings and plan as documented. I personally performed the Examand Medical Decision Making. Attending Addendum: Patient interviewed and examined personally and with the resident/fellow/[employer] MINER/medical student. I reviewed the patient's history, exam, diagnosis, and the plan of treatment. I agree with the plan of care as follows: overall doing well. Encouraged ongoing ambulation. Will continue to increase tube feeds to goal. He is passing gas but no stool yet. If no bowel movement as tube feeds increase we willincrease his bowel regimen. UGI on Sunday. Sona Kaur MD petroleum refinery operator Thoracic Surgery * Care Plan - Marlo Herrera RN - 04/11/2025 8:00 AM EST Problem: Adult Inpatient Plan of Care Goal: Absence of Hospital-Acquired Illness or Injury Intervention: Identify and Manage Fall Risk Flowsheets (Taken 04/11/2025 1118) Safety Promotion/Fall Prevention: activity supervised assistive device/personal items within reach clutter-free environment maintained mobility aid in reach lighting adjusted fall prevention program maintained nonskid shoes/slippers when out of bed room organization consistent safety round/check completed Intervention: Prevent Skin Injury Flowsheets (Taken 04/11/2025 1118) Body Position: weight shifting Skin Protection: incontinence pads utilized Intervention: Prevent and Manage VTE (Venous Thromboembolism) Risk Flowsheets (Taken 04/11/20251117) VTE Prevention/Management: medication Intervention: Prevent Infection Flowsheets (Taken 04/11/20251117) Infection Prevention: cohorting utilized environmental surveillance performed equipment surfaces disinfected rest/sleep promoted personal protective equipment utilized single patient room provided hand hygiene promoted Goal: Optimal Comfort and Wellbeing Intervention: Provide Person-Centered Care Flowsheets (Taken 04/11/20251117) Trust Relationship/Rapport: care explained emotional support provided empathic listening provided choices provided questions answered questions encouraged reassurance provided thoughts/feelings acknowledged Problem: Infection Goal: Absence of Infection Signs and Symptoms Intervention: Prevent or Manage Infection Flowsheets (Taken 04/11/20251117) Infection Management: aseptic technique maintained Fever Reduction/Comfort Measures: lightweight clothing lightweight bedding Isolation Precautions: protective Problem: Fall Injury Risk Goal: Absence of Fall and Fall-Related Injury Intervention: Identify and Manage Contributors Flowsheets (Taken 04/11/20251117) Medication Review/Management: medications reviewed high-risk medications identified Intervention: Promote Injury-Free Environment Flowsheets (Taken 04/11/20251117) Safety Promotion/Fall Prevention: activity supervised assistive device/personal items within reach clutter-free environment maintained mobility aid in reach lighting adjusted fall prevention program maintained nonskid shoes/slippers when out of bed room organization consistent safety round/check completed Problem: Surgery Nonspecified Goal: Absence of Bleeding Intervention: Monitor and Manage Bleeding Flowsheets (Taken 04/11/20251117) Bleeding Management: dressing monitored Goal: Effective Bowel Elimination Intervention: Enhance Bowel Motility and Elimination Flowsheets (Taken 04/11/20251117) Bowel Elimination Management: sitting position facilitated Bowel Motility Enhancement: ambulation promoted Goal: Fluid and Electrolyte Balance Intervention: Monitor and Manage Fluid and Electrolyte Balance Flowsheets (Taken 04/11/20251117) Fluid/Electrolyte Management: electrolyte supplement initiated Goal: Blood Glucose Level Within Target Range Intervention: Optimize Glycemic Control Flowsheets (Taken 04/11/20251117) Hyperglycemia Management: blood glucose monitored Hypoglycemia Management: blood glucose monitored Goal: Nausea and Vomiting Relief Intervention: Prevent or Manage Nausea and Vomiting Flowsheets (Taken 04/11/20251117) Nausea/Vomiting Interventions: slow deep breathing encouraged Goal: Effective Urinary Elimination Intervention: Monitor and Manage Urinary Retention Flowsheets (Taken 04/11/20251117) Urinary Elimination Promotion: positioned for ease of voiding Goal: Effective Oxygenation and Ventilation Intervention: Optimize Oxygenation and Ventilation Flowsheets (Taken 04/11/2025 1118) Activity Management: up in chair * Care Plan - Marlo Platt RN - 04/11/2025 2:32 AM EST Problem: Adult Inpatient Plan of Care Goal: Plan of Care Review Outcome: Ongoing, Progressing Flowsheets Taken 04/10/2025 1201 by Isis Grewal RN Progress: improving Plan of Care Reviewed With: patient Taken 04/07/2025620 by Bharti Cobian RN Outcome Evaluation: pt comfortable overnight, not requiring any continuous medications for BP mngmt will try to walk today Goal: Patient-Specific Goal (Individualized) Outcome: Ongoing, Progressing Flowsheets (Taken 04/10/20251999) Patient/Family-Specific Goals (Include Timeframe): Patient to remainf ree from injuries during thisshift Individualized Care Needs: SUZAN drain, PEG-J, NG sump Anxieties, Fears or Concerns: Wants to get up and walk some tomorrow Goal: Absence of Hospital-Acquired Illness or Injury Outcome: Ongoing, Progressing Intervention: Identify and Manage Fall Risk Flowsheets (Taken 04/10/20251999) Safety Promotion/Fall Prevention: activity supervised assistive device/personal items within reach clutter-free environment maintained fall prevention program maintained lighting adjusted mobility aid in reach nonskid shoes/slippers when out of bed room organization consistent safety round/check completed Intervention: Prevent Skin Injury Flowsheets Taken 04/11/2025 0200 by Jose Reyes Body Position: weight shifting Taken 04/07/2025 1000 by Mario Alberto Price RN Skin Protection: incontinence pads utilized Intervention: Prevent and Manage VTE (Venous Thromboembolism) Risk Flowsheets (Taken 04/10/20251999) VTE Prevention/Management: previous patient education reinforced education provided medication Intervention: Prevent Infection Flowsheets (Taken 04/07/2025620 by Bharti Cobian RN) Infection Prevention: hand hygiene promoted personal protective equipment utilized rest/sleep promoted Goal: Optimal Comfort and Wellbeing Outcome: Ongoing, Progressing Intervention: Monitor Pain and Promote Comfort Flowsheets (Taken 04/10/20251952) Pain Management Interventions: medication (see MAR) Intervention: Provide Person-Centered Care Flowsheets (Taken 04/07/2025620 by Bharti Cobian RN) Trust Relationship/Rapport: care explained choices provided Problem: Infection Goal: Absence of Infection Signs and Symptoms Outcome: Ongoing, Progressing Intervention: Prevent or Manage Infection Flowsheets Taken 04/10/20251999 by Marlo Platt RN Isolation Precautions: precautions maintained protective Taken 04/07/2025620 by Bharti Cobian RN Infection Management: aseptic technique maintained Fever Reduction/Comfort Measures: lightweight bedding lightweight clothing Problem: Fall Injury Risk Goal: Absence of Fall and Fall-Related Injury Outcome: Ongoing, Progressing Intervention: Identify and Manage Contributors Flowsheets (Taken 04/07/2025622 by Bharti Cobian RN) Medication Review/Management: medications reviewed dosing adjusted Self-Care Promotion: independence encouraged Intervention: Promote Injury-Free Environment Flowsheets (Taken 04/10/20251999) Safety Promotion/Fall Prevention: activity supervised assistive device/personal items within reach clutter-free environment maintained fall prevention program maintained lighting adjusted mobility aid in reach nonskid shoes/slippers when out of bed room organization consistent safety round/check completed Problem: Surgery Nonspecified Goal: Absence of Bleeding Outcome: Ongoing, Progressing Intervention: Monitor and Manage Bleeding Flowsheets (Taken 04/07/2025622 by Bharti Cobian, LEEANNE) Bleeding Management: dressing monitored Goal: Effective Bowel Elimination Outcome: Ongoing, Progressing Intervention: Enhance Bowel Motility and Elimination Flowsheets (Taken 04/07/2025622 by Bharti Cobian, RN) Bowel Elimination Management: hygiene measures promoted relaxation techniques promoted Bowel Motility Enhancement: ambulation promoted Goal: Fluid and Electrolyte Balance Outcome: Ongoing, Progressing Intervention: Monitor and Manage Fluid and Electrolyte Balance Flowsheets (Taken 04/07/2025622 by Bharti Cobian RN) Fluid/Electrolyte Management: electrolyte supplement initiated fluids provided Goal: Blood Glucose Level Within Target Range Outcome: Ongoing, Progressing Intervention: Optimize Glycemic Control Flowsheets (Taken 04/07/2025622 by Bharti Cobian, RN) Hyperglycemia Management: blood glucose monitored Hypoglycemia Management: blood glucose monitored Goal: Optimal Pain Control and Function Outcome: Ongoing, Progressing Intervention: Prevent or Manage Pain Flowsheets Taken 04/10/20251952 by Marlo Platt RN Pain Management Interventions: medication (see MAR) Taken 04/07/2025622 by Bharti Cobian RN Diversional Activities: television Goal: Nausea and Vomiting Relief Outcome: Ongoing, Progressing Intervention: Prevent or Manage Nausea and Vomiting Flowsheets (Taken 04/07/2025622 by Bharti Cobian, RN) Nausea/Vomiting Interventions: cool cloth applied Goal: Effective Urinary Elimination Outcome: Ongoing, Progressing Intervention: Monitor and Manage Urinary Retention Flowsheets (Taken 04/07/2025622 by Bharti Cobian, RN) Urinary Elimination Promotion: catheter patency maintained Goal: Effective Oxygenation and Ventilation Outcome: Ongoing, Progressing Intervention: Optimize Oxygenation and Ventilation Flowsheets Taken 04/11/2025199 by Jose Reyes Activity Management: up in chair Taken 04/10/20251999 by Marlo Platt RN Head of Bed (HOB) Positioning: HOB elevated Cough And Deep Breathing: done independently per patient Taken 04/07/2025622 by Bharti Cobian RN Airway/Ventilation Management: airway patency maintained oxygen therapy provided * Care Plan - Isis Grewal RN - 04/10/2025 12:03 PM EST Problem: Adult Inpatient Plan of Care Goal: Plan of Care Review Outcome: Ongoing, Progressing Flowsheets (Taken 04/10/2025 1201) Progress: improving Plan of Care Reviewed With: patient Goal: Patient-Specific Goal (Individualized) Outcome: Ongoing, Progressing Flowsheets (Taken 04/10/2025 1100) Patient/Family-Specific Goals (Include Timeframe): pt will remain free of falls this shift Individualized Care Needs: none Anxieties, Fears or Concerns: none Goal: Absence of Hospital-Acquired Illness or Injury Outcome: Ongoing, Progressing Intervention: Identify and Manage Fall Risk Flowsheets (Taken 04/10/2025 1100) Safety Promotion/Fall Prevention: activity supervised assistive device/personal items within reach clutter-free environment maintained fall prevention program maintained lighting adjusted mobility aid in reach nonskid shoes/slippers when out of bed room organization consistent safety round/check completed toileting scheduled Intervention: Prevent Skin Injury Flowsheets Taken 04/10/2025 1100 by Isis Grewal RN Body Position: weight shifting Taken 04/07/2025 1000 by Mario Alberto Price RN Skin Protection: incontinence pads utilized Intervention: Prevent and Manage VTE (Venous Thromboembolism) Risk Flowsheets (Taken 04/10/2025 1100) VTE Prevention/Management: bilateral SCDs (sequential compression devices) off medication Intervention: Prevent Infection Flowsheets (Taken 04/07/2025 06 by Bharti Cobian RN) Infection Prevention: hand hygiene promoted personal protective equipment utilized rest/sleep promoted Goal: Optimal Comfort and Wellbeing Outcome: Ongoing, Progressing Intervention: Monitor Pain and Promote Comfort Flowsheets (Taken 04/10/2025 1045) Pain Management Interventions: medication (see MAR) Intervention: Provide Person-Centered Care Flowsheets (Taken 04/07/2025 06 by Bharti Cobian RN) Trust Relationship/Rapport: care explained choices provided Problem: Infection Goal: Absence of Infection Signs and Symptoms Outcome: Ongoing, Progressing Intervention: Prevent or Manage Infection Flowsheets Taken 04/10/2025 1100 by Isis Grewal RN Isolation Precautions: protective Taken 04/07/2025 06 by Bharti Cobian RN Infection Management: aseptic technique maintained Fever Reduction/Comfort Measures: lightweight bedding lightweight clothing Problem: Fall Injury Risk Goal: Absence of Fall and Fall-Related Injury Outcome: Ongoing, Progressing Intervention: Identify and Manage Contributors Flowsheets (Taken 04/07/2025 06 by Bharti Cobian RN) Medication Review/Management: medications reviewed dosing adjusted Self-Care Promotion: independence encouraged Intervention: Promote Injury-Free Environment Flowsheets (Taken 04/10/2025 1100) Safety Promotion/Fall Prevention: activity supervised assistive device/personal items within reach clutter-free environment maintained fall prevention program maintained lighting adjusted mobility aid in reach nonskid shoes/slippers when out of bed room organization consistent safety round/check completed toileting scheduled Problem: Surgery Nonspecified Goal: Absence of Bleeding Outcome: Ongoing, Progressing Intervention: Monitor and Manage Bleeding Flowsheets (Taken 04/07/2025 06 by Bharti Cobian RN) Bleeding Management: dressing monitored Goal: Effective Bowel Elimination Outcome: Ongoing, Progressing Intervention: Enhance Bowel Motility and Elimination Flowsheets (Taken 04/07/2025622 by Bharti Cobian RN) Bowel Elimination Management: hygiene measures promoted relaxation techniques promoted Bowel Motility Enhancement: ambulation promoted Goal: Fluid and Electrolyte Balance Outcome: Ongoing, Progressing Intervention: Monitor and Manage Fluid and Electrolyte Balance Flowsheets (Taken 04/07/2025622 by Bharti Cobian RN) Fluid/Electrolyte Management: electrolyte supplement initiated fluids provided Goal: Blood Glucose Level Within Target Range Outcome: Ongoing, Progressing Intervention: Optimize Glycemic Control Flowsheets (Taken 04/07/2025622 by Bharti Cobian RN) Hyperglycemia Management: blood glucose monitored Hypoglycemia Management: blood glucose monitored Goal: Optimal Pain Control and Function Outcome: Ongoing, Progressing Intervention: Prevent or Manage Pain Flowsheets Taken 04/10/2025 1045 by Isis Grewal RN Pain Management Interventions: medication (see MAR) Taken 04/07/2025622 by Bharti Cobian RN Diversional Activities: television Goal: Nausea and Vomiting Relief Outcome: Ongoing, Progressing Intervention: Prevent or Manage Nausea and Vomiting Flowsheets (Taken 04/07/2025622 by Bharti Cobian RN) Nausea/Vomiting Interventions: cool cloth applied Goal: Effective Urinary Elimination Outcome: Ongoing, Progressing Intervention: Monitor and Manage Urinary Retention Flowsheets (Taken 04/07/2025622 by Bharti Cobian RN) Urinary Elimination Promotion: catheter patency maintained Goal: Effective Oxygenation and Ventilation Outcome: Ongoing, Progressing Intervention: Optimize Oxygenation and Ventilation Flowsheets Taken 04/10/2025 1100 by Isis Grewal RN Activity Management: activity adjusted per tolerance Head of Bed (HOB) Positioning: HOB elevated Taken 04/08/20251999 by Niesha Huerta Cough And Deep Breathing: done independently per patient Taken 04/07/2025622 by Bharti Cobian RN Airway/Ventilation Management: airway patency maintained oxygen therapy provided * Progress Notes - Mario Alberto Franklin MD - 04/10/2025 8:08 AM EST Images from the original note were not included. [facility] Department of Surgery Section of Thoracic Surgery ICU Progress Note 04/10/25 Edwin Cook History of Present Illness Edwin Cook is a 70 y.o. male 4 Days Post-Op from minimally invasive Roderick Romero esophagectomy and j-tube insertion. Procedures this admission 04/06/2025: Bronch, EGD with NGT insertion, Minimally invasive Roderick Romero esophagectomy, Take down of gastrostomy tube, J tube insertion Events of last 24 hours NAEON. Has not ambulated in the halls yet. NGT patient and functioning appropriately. AFVSS on RA. SUZAN drain serosanguinous output. Moderate pain control. Passing flatus but no BM. Relevant review of systems was obtained as able and is negative unless stated above in HPI. Physical Exam: Visit Vitals BP (!) 158/82 Pulse 69 Temp (!) 36.1 ??C (97 ??F) (Axillary) Wt 107 kg (236 lb 8.9 oz) SpO2 93% BMI 32.08 kg/m?? General: alert and oriented, appropriate HEENT: normocephalic, atraumatic, normal external ears and nose, NGT bridled in nare Eyes: no scleral icterus, normal conjunctiva Neck: supple, no trachea deviation Lungs: symmetric chest rise, non-labored breathing Heart: Regular rate, well perfused Abdomen: soft NT/ND, Extremities: no peripheral edema Skin: no rash, no cyanosis and warm to touch Psychiatric: oriented to person/place/time and normal mood/affect Intake/Output Summary (Last 24 hours) at 04/10/2025 0808 Last data filed at 04/10/2025 0600 Gross per 24 hour Intake 980 ml Output 1530 ml Net -550 ml Lines/Drains/Tubes: Patient Lines/Drains/Airways Status Active Airway None Output by Drain (mL) 04/08/25 07 - 04/08/25 1859 04/08/25 1900 - 04/09/25 0659 04/09/25 07 - 04/09/25 1859 04/09/25 1900 - 04/10/25 0659 04/10/25 0700 - 04/10/25 0808 Closed/Suction Drain Right;Lateral Pleural Bulb 10 30 Labs in last 18 hours: CBC WBC 7.94 Hb 12.7 (L) Plt 129 (L) Hct 36.5 (L) ANC ?? INR ??, PTT ??, Anti-Xa ?? MCV 96 BMP Na 139 Cl 104 BUN 10 Glu 104 (H) K 3.6 Co2 25 Cr 0.60 (L) Ca 8.2 (L) iCa ?? Mg 2.0, Phos 3.6 Lactate ?? LFT AST ?? AlkPhos ?? T Prot ?? ALK ?? Bili ?? Alb ?? D.Bili ?? Lab Trends: H/H Results from last 7 days Lab Units 04/10/25 0043 04/09/25 0501 04/08/25 0158 HEMOGLOBIN g/dL 12.7* 12.1* 12.5* HEMATOCRIT % 36.5* 39.4* 36.9* INR Cr Results from last 7 days Lab Units 04/10/25 0043 04/09/25 0501 04/08/25 0158 CREATININE mg/dL 0.60* 0.58* 0.62* Medications reviewed. Vital signs reviewed. Labs reviewed. Radiography reviewed. CXR: stable Assessment and Plan: Principal Problem: Esophageal cancer Active Problems: HLD (hyperlipidemia) GERD (gastroesophageal reflux disease) JUAN DIEGO (obstructive sleep apnea) Former smoker Obesity Electrolyte abnormality Feeding difficulties Hypothyroid Respiratory insufficiency Hypertension BPH (benign prostatic hyperplasia) Anemia Thrombocytopenia (CMS/HCC) Present on Admission: Esophageal cancer Feeding difficulties GERD (gastroesophageal reflux disease) HLD (hyperlipidemia) Hypothyroid Obesity JUAN DIEGO (obstructive sleep apnea) Respiratory insufficiency Electrolyte abnormality Hypertension BPH (benign prostatic hyperplasia) Anemia Thrombocytopenia (CMS/HCC) Plan: - NG to LiWS - Strict NPO - Liquid meds via j-tube only - no crushed/powdered meds - Advance J-tube feeds 10cc q12 hours - HLIV - SUZAN to bulb suction - Abdominal binder - Progressive Mario Alberto Franklin MD Thoracic Surgery Cosigned by Sona Schaefer MD at 04/10/2025 10:13 AM EST Associated attestation - Sona Schaefer MD - 04/10/2025 10:13 AM EST Attending Addendum: Patient interviewed and examined personally and with the resident/fellow/[employer]/medical student. I reviewed the patient's history, exam, diagnosis, and the plan of treatment. I agree with the plan of care as follows: overall doing well. Pain is there but improving. He has been ambulating. Will increase tube feeds today. Sona Kaur MD petroleum refinery operator Thoracic Surgery * Care Plan - Niesha Huerta - 04/10/2025 12:24 AM EST Problem: Adult Inpatient Plan of Care Goal: Plan of Care Review Outcome: Ongoing, Progressing Goal: Patient-Specific Goal (Individualized) Outcome: Ongoing, Progressing Goal: Absence of Hospital-Acquired Illness or Injury Outcome: Ongoing, Progressing Goal: Optimal Comfort and Wellbeing Outcome: Ongoing, Progressing Problem: Infection Goal: Absence of Infection Signs and Symptoms Outcome: Ongoing, Progressing Problem: Fall Injury Risk Goal: Absence of Fall and Fall-Related Injury Outcome: Ongoing, Progressing Problem: Surgery Nonspecified Goal: Absence of Bleeding Outcome: Ongoing, Progressing Goal: Effective Bowel Elimination Outcome: Ongoing, Progressing Goal: Fluid and Electrolyte Balance Outcome: Ongoing, Progressing Goal: Blood Glucose Level Within Target Range Outcome: Ongoing, Progressing Goal: Optimal Pain Control and Function Outcome: Ongoing, Progressing Goal: Nausea and Vomiting Relief Outcome: Ongoing, Progressing Goal: Effective Urinary Elimination Outcome: Ongoing, Progressing Goal: Effective Oxygenation and Ventilation Outcome: Ongoing, Progressing * Progress Notes - Casandra Rodríguez APRN - 04/09/2025 12:46 PM EST Images from the original note were not included. [facility] Department of Surgery Section of Thoracic Surgery ICU Progress Note 04/09/25 Edwin Cook History of Present Illness Edwin Cook is a 70 y.o. male 3 Days Post-Op from minimally invasive Roderick Romero esophagectomy and j-tube insertion. Procedures this admission 04/06/2025: Bronch, EGD with NGT insertion, Minimally invasive Roderick Romero esophagectomy, Take down of gastrostomy tube, J tube insertion Events of last 24 hours NAEO. Appropriate oxygenation on 2L NC. Bradycardic overnight, but normotensive to hypertensive. Voiding spontaneously. NGT output minimal. CT output decreased to 150mls. Pain well controlled. Relevant review of systems was obtained as able and is negative unless stated above in HPI. Physical Exam: Visit Vitals BP (!) 171/80 Pulse 59 Temp 36.6 ??C (97.9 ??F) (Oral) Wt 107 kg (236 lb 8.9 oz) SpO2 92% BMI 32.08 kg/m?? GENERAL: WD, obese, NAD EYES: No scleral icterus or conjunctivitis HENT: Atraumatic, normocephalic, nares patent, mucus membranes moist, NG tube in place NECK: Supple RESP/CHEST: symmetric chest rise, non-labored CARD: sinus bradycardia Extremities: No lower extremity edema present. No cyanosis or clubbing. Pedal pulses palpable +2. GI: soft, non-distended SKIN: No rash, sores, lesions or subcutaneous nodules. NEURO: AAOx4. Motor intact and no focal deficits PSYCH: Mood and affect congruent and appropriate to situation Intake/Output Summary (Last 24 hours) at 04/09/2025 1246 Last data filed at 04/09/2025 1200 Gross per 24 hour Intake 2240 ml Output 3385 ml Net -1145 ml Lines/Drains/Tubes: Patient Lines/Drains/Airways Status Active Airway None Output by Drain (mL) 04/07/25 0700 - 04/07/25 1859 04/07/25 1900 - 04/08/25 0659 04/08/25 0700 - 04/08/25 1859 04/08/25 1900 - 04/09/25 0659 04/09/25 0700 - 04/09/25 1246 Closed/Suction Drain Right;Lateral Pleural Bulb 55 45 10 Labs in last 18 hours: CBC WBC 6.72 Hb 12.1 (L) Plt 117 (L) Hct 39.4 (L) ANC ?? INR ??, PTT ??, Anti-Xa ?? MCV 107 (H) BMP Na 135 (L) Cl 101 BUN 7 (L) Glu 86 K 3.9 Co2 24 Cr 0.58 (L) Ca 8.3 (L) iCa ?? Mg 1.9, Phos 3.4 Lactate ?? LFT AST ?? AlkPhos ?? T Prot ?? ALK ?? Bili ?? Alb ?? D.Bili ?? Lab Trends: H/H Results from last 7 days Lab Units 04/09/25 0501 04/08/25 0158 04/07/25 0054 HEMOGLOBIN g/dL 12.1* 12.5* 10.9* HEMATOCRIT % 39.4* 36.9* 32.7* INR Cr Results from last 7 days Lab Units 04/09/25 0501 04/08/25 0158 04/07/25 0054 CREATININE mg/dL 0.58* 0.62* 0.70 Medications reviewed. Vital signs reviewed. Labs reviewed. Radiography reviewed. CXR: stable aeration, right chest tube in place Assessment and Plan: Principal Problem: Esophageal cancer Active Problems: HLD (hyperlipidemia) GERD (gastroesophageal reflux disease) JUAN DIEGO (obstructive sleep apnea) Former smoker Obesity Electrolyte abnormality Feeding difficulties Hypothyroid Respiratory insufficiency Hypertension BPH (benign prostatic hyperplasia) Anemia Thrombocytopenia (CMS/HCC) Present on Admission: Esophageal cancer Feeding difficulties GERD (gastroesophageal reflux disease) HLD (hyperlipidemia) Hypothyroid Obesity JUAN DIEGO (obstructive sleep apnea) Respiratory insufficiency Electrolyte abnormality Hypertension BPH (benign prostatic hyperplasia) Anemia Thrombocytopenia (CMS/HCC) Plan: - Remove chest tube -- Follow up CXR@1500 - NG to LiWS - Strict NPO - Liquid meds via j-tube only - no crushed/powdered meds - Start trickle TF at 20ml/hr via j-tube - keep at 20/hr today - HLIV - SUZAN to bulb suction - Abdominal binder - Okay for transfer to progressive care Casandra Rodríguez APRN Thoracic Surgery * Progress Notes - Maria Alejandra Carpio RN - 04/09/2025 10:22 AM EST Case Management Adult Progress Note Edwin Cook 70 y.o. male CSN: [id number] Admission: 04/06/2025 5:25 AM Primary Problem: Esophageal cancer Anticipated Discharge Date: next week Additional Comments: LEEANNE RODRIGUEZ reviewed chart and met with primary team to discuss plan of care. Patient remains NPO in ICU. TF will be initiated today. Patient is not medically ready for discharge at this time. LEEANNE RODRIGUEZ will continue to follow. Maria Alejandra Carpio RN * Care Plan - Hermelinda Muniz RN - 04/09/2025 9:09 AM EST Problem: Adult Inpatient Plan of Care Goal: Plan of Care Review Outcome: Ongoing, Progressing Flowsheets Taken 04/08/2025 2321 by Niesha Huerta Plan of Care Reviewed With: patient Taken 04/07/2025 06 by Bharti Cobian RN Progress: improving Outcome Evaluation: pt comfortable overnight, not requiring any continuous medications for BP mngmt will try to walk today Goal: Patient-Specific Goal (Individualized) Outcome: Ongoing, Progressing Flowsheets (Taken 04/07/2025 08 by Mario Alberto Price RN) Patient/Family-Specific Goals (Include Timeframe): Patient will actively participate in comfort andsafety goals by reporting pain levels regularly throughout the shift. Individualized Care Needs: Comfort and safety goals discussed with patient patient participation in care encouraged patient agreeable. Anxieties, Fears or Concerns: Patient reports concerns r/t potential breakthrough pain. Goal: Absence of Hospital-Acquired Illness or Injury Outcome: Ongoing, Progressing Intervention: Identify and Manage Fall Risk Flowsheets (Taken 04/08/2025 2200 by Niesha Huerta) Safety Promotion/Fall Prevention: activity supervised nonskid shoes/slippers when out of bed Intervention: Prevent Skin Injury Flowsheets Taken 04/09/2025 0600 by Niesha Huerta Body Position: turned Taken 04/07/2025 1000 by Mario Alberto Price RN Skin Protection: incontinence pads utilized Intervention: Prevent and Manage VTE (Venous Thromboembolism) Risk Flowsheets (Taken 04/09/2025 0800) VTE Prevention/Management: medication Intervention: Prevent Infection Flowsheets (Taken 04/07/2025 06 by Bharti Cobian RN) Infection Prevention: hand hygiene promoted personal protective equipment utilized rest/sleep promoted Goal: Optimal Comfort and Wellbeing Outcome: Ongoing, Progressing Intervention: Monitor Pain and Promote Comfort Flowsheets (Taken 04/09/2025 0445 by Niesha Huerta) Pain Management Interventions: medication (see MAR) Intervention: Provide Person-Centered Care Flowsheets (Taken 04/07/2025620 by Bharti Cobian RN) Trust Relationship/Rapport: care explained choices provided Problem: Infection Goal: Absence of Infection Signs and Symptoms Outcome: Ongoing, Progressing Intervention: Prevent or Manage Infection Flowsheets Taken 04/09/2025 0700 by Niesha Huerta Isolation Precautions: precautions maintained Taken 04/07/2025620 by Bharti Cobian RN Infection Management: aseptic technique maintained Fever Reduction/Comfort Measures: lightweight bedding lightweight clothing Problem: Fall Injury Risk Goal: Absence of Fall and Fall-Related Injury Outcome: Ongoing, Progressing Intervention: Identify and Manage Contributors Flowsheets (Taken 04/07/2025622 by Bharti Cobian, RN) Medication Review/Management: medications reviewed dosing adjusted Self-Care Promotion: independence encouraged Intervention: Promote Injury-Free Environment Flowsheets (Taken 04/08/20252199 by Niesha Huerta) Safety Promotion/Fall Prevention: activity supervised nonskid shoes/slippers when out of bed Problem: Surgery Nonspecified Goal: Absence of Bleeding Outcome: Ongoing, Progressing Intervention: Monitor and Manage Bleeding Flowsheets (Taken 04/07/2025622 by Bharti Cobian, LEEANNE) Bleeding Management: dressing monitored Goal: Effective Bowel Elimination Outcome: Ongoing, Progressing Intervention: Enhance Bowel Motility and Elimination Flowsheets (Taken 04/07/2025622 by Bharti Cobian, LEEANNE) Bowel Elimination Management: hygiene measures promoted relaxation techniques promoted Bowel Motility Enhancement: ambulation promoted Goal: Fluid and Electrolyte Balance Outcome: Ongoing, Progressing Intervention: Monitor and Manage Fluid and Electrolyte Balance Flowsheets (Taken 04/07/2025622 by Bharti Cobian, RN) Fluid/Electrolyte Management: electrolyte supplement initiated fluids provided Goal: Blood Glucose Level Within Target Range Outcome: Ongoing, Progressing Intervention: Optimize Glycemic Control Flowsheets (Taken 04/07/2025622 by Bharti Cobian, LEEANNE) Hyperglycemia Management: blood glucose monitored Hypoglycemia Management: blood glucose monitored Goal: Optimal Pain Control and Function Outcome: Ongoing, Progressing Intervention: Prevent or Manage Pain Flowsheets Taken 04/09/2025 0445 by Niesha Huerta Pain Management Interventions: medication (see MAR) Taken 04/07/2025622 by Bharti Cobian, RN Diversional Activities: television Goal: Nausea and Vomiting Relief Outcome: Ongoing, Progressing Intervention: Prevent or Manage Nausea and Vomiting Flowsheets (Taken 04/07/2025 06 by Bharti Cobian, RN) Nausea/Vomiting Interventions: cool cloth applied Goal: Effective Urinary Elimination Outcome: Ongoing, Progressing Intervention: Monitor and Manage Urinary Retention Flowsheets (Taken 04/07/2025 06 by Bharti Cobian, RN) Urinary Elimination Promotion: catheter patency maintained Goal: Effective Oxygenation and Ventilation Outcome: Ongoing, Progressing Intervention: Optimize Oxygenation and Ventilation Flowsheets Taken 04/09/2025 0800 by Hermelinda Muniz RN Activity Management: activity adjusted per tolerance up in chair Taken 04/08/2025 2000 by Niesha Huerta Cough And Deep Breathing: done independently per patient Taken 04/07/2025 1800 by Mario Alberto Price RN Head of Bed (HOB) Positioning: HOB elevated Taken 04/07/2025 06 by Bharti Cobian RN Airway/Ventilation Management: airway patency maintained oxygen therapy provided * Care Plan - Niesha Huerta - 04/09/2025 1:49 AM EST Problem: Adult Inpatient Plan of Care Goal: Plan of Care Review 04/09/2025148 by Niesha Huerta Outcome: Ongoing, Progressing Flowsheets Taken 04/08/20252320 by Niesha Huerta Plan of Care Reviewed With: patient Taken 04/07/2025 06 by Bharti Cobian RN Progress: improving Outcome Evaluation: pt comfortable overnight, not requiring any continuous medications for BP mngmt will try to walk today 04/08/20252321 by Niesha Huerta Outcome: Ongoing, Progressing 04/08/20252320 by Niesha Huerta Outcome: Ongoing, Progressing Flowsheets Taken 04/08/20252320 by Niesha Huerta Plan of Care Reviewed With: patient Taken 04/07/2025620 by Bharti Cobian RN Progress: improving Outcome Evaluation: pt comfortable overnight, not requiring any continuous medications for BP mngmt will try to walk today Goal: Patient-Specific Goal (Individualized) 04/09/2025148 by Niesha Huerta Outcome: Ongoing, Progressing 04/08/2025 232 by Niesha Huerta Outcome: Ongoing, Progressing 04/08/2025 232 by Niesha Huerta Outcome: Ongoing, Progressing Goal: Absence of Hospital-Acquired Illness or Injury 04/09/2025 014 by Niesha Huerta Outcome: Ongoing, Progressing 04/08/2025 232 by Niesha Huerta Outcome: Ongoing, Progressing 04/08/2025 232 by Niesha Huerta Outcome: Ongoing, Progressing Goal: Optimal Comfort and Wellbeing 04/09/2025 014 by Niesha Huerta Outcome: Ongoing, Progressing 04/08/2025 232 by Niesha Huerta Outcome: Ongoing, Progressing 04/08/20252320 by Niesha Huerta Outcome: Ongoing, Progressing Problem: Infection Goal: Absence of Infection Signs and Symptoms 04/09/2025148 by Niesha Huerta Outcome: Ongoing, Progressing 04/08/20252321 by Niesha Huerta Outcome: Ongoing, Progressing 04/08/20252320 by Niesha Huerta Outcome: Ongoing, Progressing Problem: Fall Injury Risk Goal: Absence of Fall and Fall-Related Injury 04/09/2025148 by Niesha Huerta Outcome: Ongoing, Progressing 04/08/20252321 by Niesha Huerta Outcome: Ongoing, Progressing 04/08/20252320 by Niesha Huerta Outcome: Ongoing, Progressing Problem: Surgery Nonspecified Goal: Absence of Bleeding 04/09/2025148 by Niesha Huerta Outcome: Ongoing, Progressing 04/08/2025 232 by Niesha Huerta Outcome: Ongoing, Progressing 04/08/2025 232 by Niesha Huerta Outcome: Ongoing, Progressing Goal: Effective Bowel Elimination 04/09/2025 014 by Niesha Huerta Outcome: Ongoing, Progressing 04/08/20252321 by Niesha Huerta Outcome: Ongoing, Progressing 04/08/20252320 by Niesha Huerta Outcome: Ongoing, Progressing Goal: Fluid and Electrolyte Balance 04/09/2025 014 by Niesha Huerta Outcome: Ongoing, Progressing 04/08/2025 232 by Niesha Huerta Outcome: Ongoing, Progressing 04/08/20252320 by Niesha Huerta Outcome: Ongoing, Progressing Goal: Blood Glucose Level Within Target Range 04/09/2025 0149 by Niesha Huerta Outcome: Ongoing, Progressing 04/08/2025 2322 by Niesha Huerta Outcome: Ongoing, Progressing 04/08/2025 232 by Niesha Huerta Outcome: Ongoing, Progressing Goal: Optimal Pain Control and Function 04/09/2025 0149 by Niesha Huerta Outcome: Ongoing, Progressing 04/08/2025 2322 by Niesha Huerta Outcome: Ongoing, Progressing 04/08/2025 2321 by Niesha Huerta Outcome: Ongoing, Progressing Goal: Nausea and Vomiting Relief 04/09/2025 0149 by Niesha Huerta Outcome: Ongoing, Progressing 04/08/2025 2322 by Niesha Huerta Outcome: Ongoing, Progressing 04/08/2025 232 by Niesha Huerta Outcome: Ongoing, Progressing Goal: Effective Urinary Elimination 04/09/2025 0149 by Niesha Huerta Outcome: Ongoing, Progressing 04/08/2025 2322 by Niesha Huerta Outcome: Ongoing, Progressing 04/08/2025 232 by Niesha Huerta Outcome: Ongoing, Progressing Goal: Effective Oxygenation and Ventilation 04/09/2025 014 by Niesha Huerta Outcome: Ongoing, Progressing 04/08/2025 232 by Neisha Huerta Outcome: Ongoing, Progressing 04/08/2025 232 by Niesha Huerta Outcome: Ongoing, Progressing * Significant Event - Holly Huang APRN, DNP - 04/08/2025 8:34 AM EST Pt had no acute events overnight, remains neurologically and hemodynamically stable. Received PCU orders. No further ICU needs at this time. After a conversation with the primary team, [facility] will sign off. Thank you for allowing us to participate in the care of this patient. Please feel free to consult us for any further needs. Holly Huang APRN, DNP * Progress Notes - Misha Aguilera DO - 04/08/2025 8:28 AM EST Images from the original note were not included. [facility] Department of Surgery Section of Thoracic Surgery ICU Progress Note 04/08/25 Edwin Cook History of Present Illness Edwin Cook is a 70 y.o. male 2 Days Post-Op from [place] Romero esophagectomy and j-tube insertion. Procedures this admission 04/06/2025: Bronch, EGD with NGT insertion, Minimally invasive [place] Romero esophagectomy, Take down of gastrostomy tube, J tube insertion Events of last 24 hours NAEO. HDSAF on 2L NC. Voiding spontaneously UOA. NGT output 50ml. CT output 395ml. Pain well controlled. Relevant review of systems was obtained as able and is negative unless stated above in HPI. Physical Exam: Visit Vitals BP (!) 181/76 Pulse 56 Temp (!) 36 ??C (96.8 ??F) (Oral) Wt 110 kg (242 lb 8.1 oz) SpO2 95% BMI 32.89 kg/m?? GENERAL: WD, WN, NAD EYES: No scleral icterus or conjunctivitis HENT: Atraumatic, normocephalic, nares patent, mucus membranes moist, NG tube in place NECK: Supple RESP/CHEST: symmetric chest rise, non-labored, right chest tube in place CARD: sinus rhythm with 1st degree block Extremities: No lower extremity edema present. No cyanosis or clubbing. Pedal pulses palpable +2. GI: soft, non-distended SKIN: No rash, sores, lesions or subcutaneous nodules. NEURO: AAOx4. Motor intact and no focal deficits PSYCH: Mood and affect congruent and appropriate to situation Intake/Output Summary (Last 24 hours) at 04/08/2025 0829 Last data filed at 04/08/2025 0700 Gross per 24 hour Intake 2500 ml Output 2305 ml Net 195 ml Lines/Drains/Tubes: Patient Lines/Drains/Airways Status Active Airway None Output by Drain (mL) 04/06/25 07 - 04/06/25 18504/06/25 1900 - 04/07/25 0659 04/07/25 07 - 04/07/25 1859 04/07/25 1900 - 04/08/25 0659 04/08/25 0700 - 04/08/25 0829 Closed/Suction Drain Right;Lateral Pleural Bulb 50 50 55 45 Labs in last 18 hours: CBC WBC 7.57 Hb 12.5 (L) Plt 102 (L) Hct 36.9 (L) ANC ?? INR ??, PTT ??, Anti-Xa ?? MCV 99 (H) BMP Na 139 Cl 105 BUN 9 Glu 105 (H) K 3.9 Co2 26 Cr 0.62 (L) Ca 8.4 (L) iCa ?? Mg 1.9, Phos 3.0 Lactate ?? LFT AST ?? AlkPhos ?? T Prot ?? ALK ?? Bili ?? Alb ?? D.Bili ?? Lab Trends: H/H Results from last 7 days Lab Units 04/08/25 0158 04/07/25 0054 04/06/25 1409 HEMOGLOBIN g/dL 12.5* 10.9* 12.9* HEMATOCRIT % 36.9* 32.7* 38.5* INR Cr Results from last 7 days Lab Units 04/08/25 0158 04/07/25 0054 04/06/25 1409 CREATININE mg/dL 0.62* 0.70 0.71 Medications reviewed. Vital signs reviewed. Labs reviewed. Radiography reviewed. CXR: improved aeration, right chest tube in place Assessment and Plan: Principal Problem: Esophageal cancer Active Problems: HLD (hyperlipidemia) GERD (gastroesophageal reflux disease) JUAN DIEGO (obstructive sleep apnea) Former smoker Obesity Electrolyte abnormality Feeding difficulties Hypothyroid Respiratory insufficiency Hypertension BPH (benign prostatic hyperplasia) Anemia Thrombocytopenia (CMS/HCC) Present on Admission: Esophageal cancer Feeding difficulties GERD (gastroesophageal reflux disease) HLD (hyperlipidemia) Hypothyroid Obesity JUAN DIEGO (obstructive sleep apnea) Respiratory insufficiency Electrolyte abnormality Hypertension BPH (benign prostatic hyperplasia) Anemia Thrombocytopenia (CMS/HCC) Plan: Downgrade to progressive CCM s/o Strict NPO IV meds only MIVF 75cc/hr SUZAN to bulb CT WS J-tube to gravity bag Abdominal binder Misha Aguilera DO Thoracic Surgery Cosigned by Everett Beyer DO at 04/08/2025 10:32 AM EST Associated attestation - Everett Beyer DO - 04/08/2025 10:32 AM EST I saw and evaluated the patient with the resident/fellow. I discussed the case with the resident/fellow and agree with the findings and plan as documented. * Care Plan - Hermelinda Muniz RN - 04/08/2025 7:53 AM EST Problem: Adult Inpatient Plan of Care Goal: Plan of Care Review Outcome: Ongoing, Progressing Flowsheets Taken 04/08/2025 0451 by Niesha Huerta Plan of Care Reviewed With: patient Taken 04/07/2025 0621 by Bharti Cobian RN Progress: improving Outcome Evaluation: pt comfortable overnight, not requiring any continuous medications for BP mngmt will try to walk today Goal: Patient-Specific Goal (Individualized) Outcome: Ongoing, Progressing Flowsheets (Taken 04/07/2025 0800 by Mario Alberto Price, LEEANNE) Patient/Family-Specific Goals (Include Timeframe): Patient will actively participate in comfort andsafety goals by reporting pain levels regularly throughout the shift. Individualized Care Needs: Comfort and safety goals discussed with patient patient participation in care encouraged patient agreeable. Anxieties, Fears or Concerns: Patient reports concerns r/t potential breakthrough pain. Goal: Absence of Hospital-Acquired Illness or Injury Outcome: Ongoing, Progressing Intervention: Identify and Manage Fall Risk Flowsheets (Taken 04/07/20251999 by Niesha Huerta) Safety Promotion/Fall Prevention: activity supervised Intervention: Prevent Skin Injury Flowsheets Taken 04/07/20251999 by Niesha Huerta Body Position: turned legs elevated Taken 04/07/2025 1000 by Mario Alberto Price, RN Skin Protection: incontinence pads utilized Intervention: Prevent and Manage VTE (Venous Thromboembolism) Risk Flowsheets (Taken 04/07/2025 1600 by Mario Alberto Price, RN) VTE Prevention/Management: bilateral SCDs (sequential compression devices) on Intervention: Prevent Infection Flowsheets (Taken 04/07/2025 0621 by Bharti Cobian RN) Infection Prevention: hand hygiene promoted personal protective equipment utilized rest/sleep promoted Goal: Optimal Comfort and Wellbeing Outcome: Ongoing, Progressing Intervention: Monitor Pain and Promote Comfort Flowsheets (Taken 04/08/2025 0412 by Niesha Huerta) Pain Management Interventions: medication (see MAR) Intervention: Provide Person-Centered Care Flowsheets (Taken 04/07/2025620 by Bharti Cobian, RN) Trust Relationship/Rapport: care explained choices provided Problem: Infection Goal: Absence of Infection Signs and Symptoms Outcome: Ongoing, Progressing Intervention: Prevent or Manage Infection Flowsheets Taken 04/08/2025599 by Niesha Huerta Isolation Precautions: precautions maintained Taken 04/07/2025620 by Bharti Cobian RN Infection Management: aseptic technique maintained Fever Reduction/Comfort Measures: lightweight bedding lightweight clothing Problem: Fall Injury Risk Goal: Absence of Fall and Fall-Related Injury Outcome: Ongoing, Progressing Intervention: Identify and Manage Contributors Flowsheets (Taken 04/07/2025622 by Bharti Cobian, RN) Medication Review/Management: medications reviewed dosing adjusted Self-Care Promotion: independence encouraged Intervention: Promote Injury-Free Environment Flowsheets (Taken 04/07/20251999 by Niesha Huerta) Safety Promotion/Fall Prevention: activity supervised Problem: Surgery Nonspecified Goal: Absence of Bleeding Outcome: Ongoing, Progressing Intervention: Monitor and Manage Bleeding Flowsheets (Taken 04/07/2025622 by Bharti Cobian, RN) Bleeding Management: dressing monitored Goal: Effective Bowel Elimination Outcome: Ongoing, Progressing Intervention: Enhance Bowel Motility and Elimination Flowsheets (Taken 04/07/2025622 by Bharti Cobian, RN) Bowel Elimination Management: hygiene measures promoted relaxation techniques promoted Bowel Motility Enhancement: ambulation promoted Goal: Fluid and Electrolyte Balance Outcome: Ongoing, Progressing Intervention: Monitor and Manage Fluid and Electrolyte Balance Flowsheets (Taken 04/07/2025622 by Bharti Cobian, RN) Fluid/Electrolyte Management: electrolyte supplement initiated fluids provided Goal: Blood Glucose Level Within Target Range Outcome: Ongoing, Progressing Intervention: Optimize Glycemic Control Flowsheets (Taken 04/07/2025622 by Bharti Cobian, LEEANNE) Hyperglycemia Management: blood glucose monitored Hypoglycemia Management: blood glucose monitored Goal: Optimal Pain Control and Function Outcome: Ongoing, Progressing Intervention: Prevent or Manage Pain Flowsheets Taken 04/08/2025411 by Niesha Huerta Pain Management Interventions: medication (see MAR) Taken 04/07/2025622 by Bharti Cobian RN Diversional Activities: television Goal: Nausea and Vomiting Relief Outcome: Ongoing, Progressing Intervention: Prevent or Manage Nausea and Vomiting Flowsheets (Taken 04/07/2025 06 by Bharti Cobian RN) Nausea/Vomiting Interventions: cool cloth applied Goal: Effective Urinary Elimination Outcome: Ongoing, Progressing Intervention: Monitor and Manage Urinary Retention Flowsheets (Taken 04/07/2025 06 by Bharti Cobian RN) Urinary Elimination Promotion: catheter patency maintained Goal: Effective Oxygenation and Ventilation Outcome: Ongoing, Progressing Intervention: Optimize Oxygenation and Ventilation Flowsheets Taken 04/08/2025 0700 by Niesha Huerta Activity Management: activity adjusted per tolerance Taken 04/07/2025 2000 by Niesha Huerta Cough And Deep Breathing: done independently per patient Taken 04/07/2025 1800 by Mario Alberto Price RN Head of Bed (HOB) Positioning: HOB elevated Taken 04/07/2025 0623 by Bharti Cobian RN Airway/Ventilation Management: airway patency maintained oxygen therapy provided * Care Plan - Niesha Huerta - 04/07/2025 10:00 PM EST Problem: Adult Inpatient Plan of Care Goal: Plan of Care Review Outcome: Ongoing, Progressing Flowsheets Taken 04/08/2025 0451 by Niesha Huerta Plan of Care Reviewed With: patient Taken 04/07/2025 0621 by Bharti Cobian RN Progress: improving Goal: Patient-Specific Goal (Individualized) Outcome: Ongoing, Progressing Goal: Absence of Hospital-Acquired Illness or Injury Outcome: Ongoing, Progressing Goal: Optimal Comfort and Wellbeing Outcome: Ongoing, Progressing Problem: Infection Goal: Absence of Infection Signs and Symptoms Outcome: Ongoing, Progressing Problem: Fall Injury Risk Goal: Absence of Fall and Fall-Related Injury Outcome: Ongoing, Progressing Problem: Surgery Nonspecified Goal: Absence of Bleeding Outcome: Ongoing, Progressing Goal: Effective Bowel Elimination Outcome: Ongoing, Progressing Goal: Fluid and Electrolyte Balance Outcome: Ongoing, Progressing Goal: Blood Glucose Level Within Target Range Outcome: Ongoing, Progressing Goal: Optimal Pain Control and Function Outcome: Ongoing, Progressing Goal: Nausea and Vomiting Relief Outcome: Ongoing, Progressing Goal: Effective Urinary Elimination Outcome: Ongoing, Progressing Goal: Effective Oxygenation and Ventilation Outcome: Ongoing, Progressing Problem: Adult Inpatient Plan of Care Goal: Plan of Care Review Outcome: Ongoing, Progressing Flowsheets Taken 04/08/2025 0451 by Niesha Huerta Plan of Care Reviewed With: patient Taken 04/07/2025 0621 by Bharti Cobian RN Progress: improving Goal: Patient-Specific Goal (Individualized) Outcome: Ongoing, Progressing Goal: Absence of Hospital-Acquired Illness or Injury Outcome: Ongoing, Progressing Goal: Optimal Comfort and Wellbeing Outcome: Ongoing, Progressing Problem: Infection Goal: Absence of Infection Signs and Symptoms Outcome: Ongoing, Progressing Problem: Fall Injury Risk Goal: Absence of Fall and Fall-Related Injury Outcome: Ongoing, Progressing Problem: Surgery Nonspecified Goal: Absence of Bleeding Outcome: Ongoing, Progressing Goal: Effective Bowel Elimination Outcome: Ongoing, Progressing Goal: Fluid and Electrolyte Balance Outcome: Ongoing, Progressing Goal: Blood Glucose Level Within Target Range Outcome: Ongoing, Progressing Goal: Optimal Pain Control and Function Outcome: Ongoing, Progressing Goal: Nausea and Vomiting Relief Outcome: Ongoing, Progressing Goal: Effective Urinary Elimination Outcome: Ongoing, Progressing Goal: Effective Oxygenation and Ventilation Outcome: Ongoing, Progressing * Care Plan - Mario Alberto Price RN - 04/07/2025 6:00 PM EST Problem: Adult Inpatient Plan of Care Goal: Plan of Care Review Outcome: Ongoing, Progressing Flowsheets (Taken 04/07/2025 06 by Bharti Cobian RN) Progress: improving Outcome Evaluation: pt comfortable overnight, not requiring any continuous medications for BP mngmt will try to walk today Plan of Care Reviewed With: patient spouse Goal: Patient-Specific Goal (Individualized) Outcome: Ongoing, Progressing Flowsheets (Taken 04/07/2025 0800) Patient/Family-Specific Goals (Include Timeframe): Patient will actively participate in comfort andsafety goals by reporting pain levels regularly throughout the shift. Individualized Care Needs: Comfort and safety goals discussed with patient patient participation in care encouraged patient agreeable. Anxieties, Fears or Concerns: Patient reports concerns r/t potential breakthrough pain. Goal: Absence of Hospital-Acquired Illness or Injury Outcome: Ongoing, Progressing Intervention: Identify and Manage Fall Risk Flowsheets (Taken 04/06/20251999 by Bharti Cobian RN) Safety Promotion/Fall Prevention: activity supervised nonskid shoes/slippers when out of bed safety round/check completed toileting scheduled Intervention: Prevent Skin Injury Flowsheets Taken 04/07/2025 1600 Body Position: turned heels elevated Taken 04/07/2025 0800 Skin Protection: incontinence pads utilized Intervention: Prevent and Manage VTE (Venous Thromboembolism) Risk Flowsheets (Taken 04/07/2025 1600) VTE Prevention/Management: bilateral SCDs (sequential compression devices) on Intervention: Prevent Infection Flowsheets (Taken 04/07/2025 06 by Bharti Cobian, RN) Infection Prevention: hand hygiene promoted personal protective equipment utilized rest/sleep promoted Goal: Optimal Comfort and Wellbeing Outcome: Ongoing, Progressing Intervention: Monitor Pain and Promote Comfort Flowsheets (Taken 04/07/2025 1545) Pain Management Interventions: medication (see MAR) Intervention: Provide Person-Centered Care Flowsheets (Taken 04/07/2025620 by Bharti Cobian, LEEANNE) Trust Relationship/Rapport: care explained choices provided Problem: Infection Goal: Absence of Infection Signs and Symptoms Outcome: Ongoing, Progressing Intervention: Prevent or Manage Infection Flowsheets Taken 04/07/2025 08 by Mario Alberto Price RN Isolation Precautions: protective Taken 04/07/2025620 by Bharti Cobian RN Infection Management: aseptic technique maintained Fever Reduction/Comfort Measures: lightweight bedding lightweight clothing Problem: Fall Injury Risk Goal: Absence of Fall and Fall-Related Injury Outcome: Ongoing, Progressing Intervention: Identify and Manage Contributors Flowsheets (Taken 04/07/2025622 by Bharti Cobian, RN) Medication Review/Management: medications reviewed dosing adjusted Self-Care Promotion: independence encouraged Intervention: Promote Injury-Free Environment Flowsheets (Taken 04/06/20251999 by Bharti Cobian, RN) Safety Promotion/Fall Prevention: activity supervised nonskid shoes/slippers when out of bed safety round/check completed toileting scheduled Problem: Surgery Nonspecified Goal: Absence of Bleeding Outcome: Ongoing, Progressing Intervention: Monitor and Manage Bleeding Flowsheets (Taken 04/07/2025622 by Bharti Cobian, RN) Bleeding Management: dressing monitored Goal: Effective Bowel Elimination Outcome: Ongoing, Progressing Intervention: Enhance Bowel Motility and Elimination Flowsheets (Taken 04/07/2025622 by Bharti Cobian RN) Bowel Elimination Management: hygiene measures promoted relaxation techniques promoted Bowel Motility Enhancement: ambulation promoted Goal: Fluid and Electrolyte Balance Outcome: Ongoing, Progressing Intervention: Monitor and Manage Fluid and Electrolyte Balance Flowsheets (Taken 04/07/2025622 by Bharti Cobian RN) Fluid/Electrolyte Management: electrolyte supplement initiated fluids provided Goal: Blood Glucose Level Within Target Range Outcome: Ongoing, Progressing Intervention: Optimize Glycemic Control Flowsheets (Taken 04/07/2025622 by Bharti Cobian RN) Hyperglycemia Management: blood glucose monitored Hypoglycemia Management: blood glucose monitored Goal: Optimal Pain Control and Function Outcome: Ongoing, Progressing Intervention: Prevent or Manage Pain Flowsheets Taken 04/07/2025 1545 by Mario Alberto Price RN Pain Management Interventions: medication (see MAR) Taken 04/07/2025622 by Bharti Cobian RN Diversional Activities: television Goal: Nausea and Vomiting Relief Outcome: Ongoing, Progressing Intervention: Prevent or Manage Nausea and Vomiting Flowsheets (Taken 04/07/2025622 by Bharti Cobian RN) Nausea/Vomiting Interventions: cool cloth applied Goal: Effective Urinary Elimination Outcome: Ongoing, Progressing Intervention: Monitor and Manage Urinary Retention Flowsheets (Taken 04/07/2025622 by Bharti Cobian RN) Urinary Elimination Promotion: catheter patency maintained Goal: Effective Oxygenation and Ventilation Outcome: Ongoing, Progressing Intervention: Optimize Oxygenation and Ventilation Flowsheets Taken 04/07/2025 1600 by Mario Alberto Price RN Activity Management: activity encouraged Head of Bed (HOB) Positioning: HOB elevated Taken 04/07/2025622 by Bharti Cobian RN Airway/Ventilation Management: airway patency maintained oxygen therapy provided Cough And Deep Breathing: done independently per patient * Consults - Sahra Brito RD - 04/07/2025 12:34 PM ESTAssociated Order(s): IP CONSULT TO NUTRITION SERVICES Adult Nutrition Evaluation Note Edwin Cook 70 y.o. male CSN: [id number] Room/Bed 218/218A Nutrition evaluation type: assessment Reason for evaluation: provider consult Hospital course: 70-year-old male with PMH of Crohn's Disease, Hypothyroidism, HLD, JUAN DIEGO, GERD, tobacco use, obesity, esophageal cancer, CVA, and TIAs who underwent Roderick Romero Esophagectomy with Thoracic Surgery. Full list of procedures on 04/06: Bronch, EGD with NGT insertion, Minimally invasive Roderick Romero esophagectomy, Take down of gastrostomy tube, J tube insertion Past medical/ surgical history: has a past medical history of Esophageal cancer, Hypothyroidism, Sleep apnea, and Stroke (CMS/HCC) (10/25/2024). Social history: Additional comments: 04/07: Pt reports ~50# wt loss from September-Jan r/t dysphagia. He had PEG placed at end of Jan and states he has had no further weight loss since starting TF. His reported home TF regimen has been 3-4 cartons of Boost VHC daily and has been able to take in po diet over the past week since finishing chemo/rad tx. Vitals and Basic Assessment: BP: (!) 138/90 Temp: 36.9 ??C (98.4 ??F) Oxygen Therapy: Supplemental oxygen O2 Delivery Method: Nasal cannula Demetrio Coma Scale Score: 15 José Luis Scale Score: 19 Markus/Cubbin Pressure Risk Score: 35 GI Symptoms: None Edema: Generalized Allergies: NKA Medications: Current Scheduled Medications[1] Current Continuous Medications[2] Current PRN Medications[3] Meds were reviewed: Yes Labs: Labs in last 18 hours CBC WBC 9.54 Hb 10.9 (L) Plt 124 (L) Hct 32.7 (L) ANC ?? INR ??, PTT ??, Anti-Xa ?? BMP Na 138 Cl 106 BUN 9 Glu 107 (H) K 4.0 Co2 25 Cr 0.70 Ca 8.0 (L) iCa 4.6; 4.6 Mg 1.8 (L), Phos 4.0 Lactate 0.8 LFT AST ?? AlkPhos ?? T Prot ?? ALK ?? Bili ?? Alb ?? D.Bili ?? Anthropometrics: Weight: 104 kg (229 lb 4.5 oz) BMI (Calculated): 31.78 Weight Evaluation: Obese-Class 1 (BMI 30-34.9) Weight History: reported UBW: 278# [place] Body Weight (kg): 80.9 Percent [place] Body Weight: 129 Adjusted Body Weight (kg): 86.7 Estimated Needs: Kcal/ K-27 Kcal Provided: 2415-6550 Kcal Needs Based On: Adjusted weight Gm Protein/ Kg : 1.2-1.5 Protein Provided: 104-130 Protein Needs Based On: Adjusted weight Metabolic Cart Study Results: Current Nutrition Intake: Diet Order: NPO Diet Experience and Nutrition History: Diet Education Provided: Will monitor Pertinent home medications: [employer] needs: Nutrition Focused Physical Exam: Physical exam performed on (date): 04/07 Temples (muscles): Mild Clavicle (muscle): None Shoulder (muscle): None Interosseous (muscle): None Thigh (muscle): None Orbital (fat): None Triceps (fat): None Assessment of Malnutrition: Malnutrition Identified: No Nutrition Problem: Inadequate oral intake related to esophagectomy as evidenced by NPO. Status of Nutrition Diagnosis: New Nutrition Interventions and Recommendations: - Initial TF: Impact Peptide 1.5 with goal of 65 mL/hr (Provides x 22 hrs (1430 mL): 2145 kcal, 134gm prot, 1101 mL H2O). - If standard TF formula is desired instead, recommend Isosource 1.5 with goal of 65 mL/hr (Provides x 22 hrs (1430 mL): 2145 kcal, 97 gm prot, 22 gm fiber, 1087 mL H2O). - Additional ~1100 mL free water daily or per MD discretion. Recommend administering no more than 150 mL at a time via j-tube. Nutrition Monitoring and Goals: - TF initiation - monitor weight Acuity Level: [address] [1] acetaminophen, 1,000 mg, Intravenous, q6h CHAVA enoxaparin, 40 mg, Subcutaneous, Daily ketorolac, 15 mg, Intravenous, q6h CHAVA methocarbamol, 1,000 mg, Intravenous, q8h mometasone-formoterol, 2 puff, Inhalation, BID mupirocin, 1 Application, Each Nostril, BID pantoprazole, 40 mg, Intravenous, Daily [2] dextrose 5 % and lactated Ringer's, 125 mL/hr, Last Rate: 125 mL/hr (04/07/25 1000) [3] PRN medications: hydrALAZINE OR hydrALAZINE, HYDROmorphone OR HYDROmorphone, labetalol OR labetalol * Progress Notes - Casandra Rodríguez APRN - 04/07/2025 12:18 PM EST Images from the original note were not included. [facility] Department of Surgery Section of Thoracic Surgery ICU Progress Note 04/07/25 Edwin Cook History of Present Illness Edwin Cook is a 70 y.o. male 1 Day Post-Op from [place] Rom[facility] esophagectomy and j-tube insertion. Procedures this admission 04/06/2025: Bronch, EGD with NGT insertion, Minimally invasive [place] Romero esophagectomy, Take down of gastrostomy tube, J tube insertion Events of last 24 hours Recovering well post-operatively. Alert, HDS on 2L NC. Strict NPO. Right chest tube with about 385 out for the past 24h. NG to LiWS. Remains strict NPO. Relevant review of systems was obtained as able and is negative unless stated above in HPI. Physical Exam: Visit Vitals BP (!) 138/90 (BP Location: Left arm, Patient Position: Lying) Pulse 59 Temp 36.9 ??C (98.4 ??F) (Bladder) Wt 104 kg (229 lb 4.5 oz) SpO2 95% BMI 31.10 kg/m?? GENERAL: WD, WN, NAD EYES: No scleral icterus or conjunctivitis HENT: Atraumatic, normocephalic, nares patent, mucus membranes moist, NG tube in place NECK: Supple RESP/CHEST: symmetric chest rise, non-labored, right chest tube in place CARD: sinus rhythm with 1st degree block Extremities: No lower extremity edema present. No cyanosis or clubbing. Pedal pulses palpable +2. GI: soft, non-distended SKIN: No rash, sores, lesions or subcutaneous nodules. NEURO: AAOx4. Motor intact and no focal deficits PSYCH: Mood and affect congruent and appropriate to situation Intake/Output Summary (Last 24 hours) at 04/07/2025 1218 Last data filed at 04/07/2025 1000 Gross per 24 hour Intake 3641.56 ml Output 2735 ml Net 906.56 ml Lines/Drains/Tubes: Patient Lines/Drains/Airways Status Active Airway None Output by Drain (mL) 04/05/25 0700 - 04/05/25 1859 04/05/25 1900 - 04/06/25 0659 04/06/25 0700 - 04/06/25 1859 04/06/25 1900 - 04/07/25 0659 04/07/25 0700 - 04/07/25 1218 Closed/Suction Drain Right;Lateral Pleural Bulb 50 50 25 Labs in last 18 hours: CBC WBC 9.54 Hb 10.9 (L) Plt 124 (L) Hct 32.7 (L) ANC ?? INR ??, PTT ??, Anti-Xa ?? MCV 99 (H) BMP Na 138 Cl 106 BUN 9 Glu 107 (H) K 4.0 Co2 25 Cr 0.70 Ca 8.0 (L) iCa 4.6; 4.6 Mg 1.8 (L), Phos 4.0 Lactate 0.8 LFT AST ?? AlkPhos ?? T Prot ?? ALK ?? Bili ?? Alb ?? D.Bili ?? Lab Trends: H/H Results from last 7 days Lab Units 04/07/25 0054 04/06/25 1409 HEMOGLOBIN g/dL 10.9* 12.9* HEMATOCRIT % 32.7* 38.5* INR Cr Results from last 7 days Lab Units 04/07/25 0054 04/06/25 1409 CREATININE mg/dL 0.70 0.71 Medications reviewed. Vital signs reviewed. Labs reviewed. Radiography reviewed. CXR: improved aeration, right chest tube in place Assessment and Plan: Principal Problem: Esophageal cancer Active Problems: HLD (hyperlipidemia) GERD (gastroesophageal reflux disease) JUAN DIEGO (obstructive sleep apnea) Former smoker Obesity Electrolyte abnormality Feeding difficulties Hypothyroid Respiratory insufficiency Hypertension BPH (benign prostatic hyperplasia) Anemia Thrombocytopenia (CMS/HCC) Present on Admission: Esophageal cancer Feeding difficulties GERD (gastroesophageal reflux disease) HLD (hyperlipidemia) Hypothyroid Obesity JUAN DIEGO (obstructive sleep apnea) Respiratory insufficiency Electrolyte abnormality Hypertension BPH (benign prostatic hyperplasia) Anemia Thrombocytopenia (CMS/HCC) Plan: - Collaborate with [facility] - Keep chest tube - on waterseal - NG to LiWS - Strict NPO - MIVF - IV meds - MMPC - J-tube to gravity bag - Remove groves - Remove arterial line - Mobilize - Pulm toilet/IS - Keep ICU level of care Casandra Rodríguez APRN Thoracic Surgery * Progress Notes - Maria Alejandra Carpio RN - 04/07/2025 10:18 AM EST Case Management Adult Initial Progress Note Edwin Cook 70 y.o. male CSN: [id number] Admission: 04/06/2025 5:25 AM Primary Problem: Esophageal cancer Yard Manager reviewed chart and spoke with the patient at bedside to complete this Initial Case Management Assessment. 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 Insurance: Primary Visit Coverage Payer Plan Sponsor Code Group Number Group Name [facility] MEDICARE [facility] MEDICARE REPLACEMENT [id number] Primary Visit Coverage Subscriber Subscriber ID Subscriber Name Subscriber SSN Subscriber Address [id number] Edwin Cook [id number] [address] [place] [address] Patient information: Primary Caregiver: Self Accompanied by/Relationship: Support System: Immediate family Daily Living Activities: Functional Status: Independent Living Arrangements: Spouse/Significant other Type of Residence: Private residence, Multi Level [address] [place] [address] Current DME: Equipment Currently Used at Home: Cpap Current DME Provider: n/a Income Information: Income Source: Retired Income/Expense Information: Income meets expenses Current Resources Utilized: None Housing Circumstances-Z Codes: Housing Circumstances (select all that apply): None Applicable Patient Referred to: Financial Resources: (n/a) Anticipated Discharge Date: next week Patient's Discharge Goal: Patient/Family Anticipates Transition to: home Assistance Available at Discharge: Current Outpatient/Agency/Support Group: infusion therapy, home Availability of Care Givers (#Hours): 24 hours Discharge Transport: Transportation Anticipated: family or friend will provide Follow Up Transport: Transportation Needed to Follow up Appoinments: Family/Friend will Provide Home Health / Home Infusion / Outpatient Dialysis Services: Current DME Provider: n/a Living Will/Advance Directive/Power of Med Surg Nurse /Guardian: Advance Directive: Patient does not have advance directive Information Provided on Healthcare Directives: No Pre-existing DNR/DNI Order: No Patient Requests Assistance: No Additional Comments: RN MICHAEL met with patient and at bedside for initial assessment and discuss role in discharge planning. Confirmed address on file. Patient lives with his in a multi-level home. Patient uses a CPAP nightly. Denies any other DME/HH/HD/O2. PCP is Jatinder Clifford. Patient has [facility] Medicare insurance and uses [facility]. will assist and transport at discharge. Patient current with [facility] [place] - will plan to use them at discharge for TF pump and supplies. CM/SW will continue to follow and assist. Maria Alejandra Carpio RN * Assessment & Plan Note - Ty Moctezuma APRN - 04/07/2025 9:53 AM EST Associated Problem(s): Thrombocytopenia (CMS/HCC) Platelets 124 this AM Monitor with AM labs * Assessment & Plan Note - Ty Moctezuma APRN - 04/07/2025 9:53 AM EST Associated Problem(s): Anemia Hemoglobin 10.9 this AM Monitor with AM labs * Assessment & Plan Note - Ty Moctezuma APRN - 04/07/2025 9:53 AM EST Associated Problem(s): BPH (benign prostatic hyperplasia) Restart home Flomax when appropriate * Assessment & Plan Note - Ty Moctezuma APRN - 04/07/2025 9:53 AM EST Associated Problem(s): Electrolyte abnormality Hypomagnesemia Monitor with AM labs Replace as needed * Assessment & Plan Note - Ty Moctezuma APRN - 04/07/2025 9:53 AM EST Associated Problem(s): Esophageal cancer HX of esophageal cancer S/p [place] Rom[place] Esophagectomy with TSS on 04/06 Strict NPO Chest tube management and SUZAN drain management per TSS * Assessment & Plan Note - Ty Moctezuma APRN - 04/07/2025 9:53 AM EST Associated Problem(s): Feeding difficulties Secondary to esophageal cancer Now with J-tube; no crushed medications * Assessment & Plan Note - Ty Moctezuma APRN - 04/07/2025 9:53 AM EST Associated Problem(s): Former smoker Complicates all aspects of care * Assessment & Plan Note - Ty Moctezuma APRN - 04/07/2025 9:53 AM EST Associated Problem(s): GERD (gastroesophageal reflux disease) IV PPI for now * Assessment & Plan Note - Ty Moctezuma APRN - 04/07/2025 9:53 AM EST Associated Problem(s): HLD (hyperlipidemia) Home statin when appropriate * Assessment & Plan Note - Ty Moctezuma APRN - 04/07/2025 9:53 AM EST Associated Problem(s): Hypertension PRN hydralazine and labetalol for now Restart home medications when appropriate Nitroglycerin gtt off * Assessment & Plan Note - Ty Moctezuma APRN - 04/07/2025 9:53 AM EST Associated Problem(s): Hypothyroid Continue home Synthroid when appropriate * Assessment & Plan Note - Ty Moctezuma APRN - 04/07/2025 9:53 AM EST Associated Problem(s): Obesity BMI 31.7 Complicates all aspects of care * Assessment & Plan Note - Ty Moctezuma APRN - 04/07/2025 9:53 AM EST Associated Problem(s): JUAN DIEGO (obstructive sleep apnea) No positive pressure s/p esophagectomy per TSS See respiratory insufficiency overview * Assessment & Plan Note - Ty Moctezuma APRN - 04/07/2025 9:53 AM EST Associated Problem(s): Respiratory insufficiency HX of COPD and former smoker On 2lpm via NC No positive pressure per TSS Nebs PRN Chest tube care per TSS * Progress Notes - Ty Moctezuma APRN - 04/07/2025 9:38 AM ESTAssociated Order(s): Critical Care Post-Procedure Diagnose(s): Malignant neoplasm of lower third of esophagus Images from the original note were not included. [facility] Unit Progress Note 04/07/25 Edwin Cook is a 70 y.o. male who presents with Esophageal cancer Past 24 hours: No acute events overnight. Off nitroglycerin gtt. Plan to de-escalate groves and arterial line today. Plan to get up to chair today. GCS: Demetrio Coma Scale Score: 15 Review of Systems Constitutional: Positive for fatigue. HENT: Negative. Eyes: Negative. Respiratory: Negative. Cardiovascular: Negative. Gastrointestinal: Negative. Endocrine: Negative. Genitourinary: Negative. Musculoskeletal: Positive for back pain. Allergic/Immunologic: Negative. Neurological: Positive for weakness. Psychiatric/Behavioral: Negative. Vital signs: Vitals: 04/07/25 0700 BP: Pulse: 66 Resp: 20 Temp: 36.8 ??C (98.2 ??F) SpO2: 97% Intake/Output Summary (Last 24 hours) at 04/07/2025 0938 Last data filed at 04/07/2025 0900 Gross per 24 hour Intake 4516.56 ml Output 2680 ml Net 1836.56 ml Physical Exam: GENERAL: elderly male EYES: anicteric sclerae, PERRLA HENT: Oropharynx clear with moist mucous membranes and no mucosal ulcerations NECK/Lymph: Trachea midline; No thyromegaly or lymphadenopathy . RESP: Good air movement, Breath sounds clear to auscultation. No wheezing. CARD: RRR, without murmur, rubs, or gallop Extremities: No edema, cyanosis or clubbing. GI: No organomegaly or masses. Abdomen is soft, nontender and nondistended. BS present x 4 quadrants SKIN: No rash, ulcers or subcutaneous nodules NEURO: Alert and oriented, moves all extremities, no focal deficit Labs in last 18 hours: CBC WBC 9.54 Hb 10.9 (L) Plt 124 (L) Hct 32.7 (L) ANC ?? INR ??, PTT ??, Anti-Xa ?? BMP Na 138 Cl 106 BUN 9 Glu 107 (H) K 4.0 Co2 25 Cr 0.70 Ca 8.0 (L) iCa 4.6; 4.6 Mg 1.8 (L), Phos 4.0 Lactate 0.8 LFT AST ?? AlkPhos ?? T Prot ?? ALK ?? Bili ?? Alb ?? D.Bili ?? Imaging if available: XR Chest 1 View Narrative: CLINICAL INDICATION: PostOp Esophagectomy TECHNIQUE: XR CHEST 1 VIEW COMPARISON: 04/06/2025 FINDINGS: Stable position of support hardware. Stable cardiac silhouette. Left basilar atelectasis and small left-sided pleural effusion, unchanged. Ongoing mild vascular congestion. No significant pleural effusions appreciated. Mild residual pneumomediastinum. No discrete pneumothorax is noted. Impression: Mild residual pneumomediastinum. Vascular congestion. CRITICAL RESULT: No. COMMUNICATION: Per this written report. Drafted by Ann Baker MD on 04/07/2025 9:00 AM Final report signed by Ann Baker MD on 04/07/2025 9:00 AM Reviewed and agree with above. Assessment and Plan: This patient is critically ill. Assessment & Plan Esophageal cancer Present on Admission: Yes HX of esophageal cancer S/p [place] [facility] Esophagectomy with TSS on 04/06 Strict NPO Chest tube management and SUZAN drain management per TSS JUAN DIEGO (obstructive sleep apnea) Present on Admission: Yes No positive pressure s/p esophagectomy per TSS See respiratory insufficiency overview Electrolyte abnormality Present on Admission: Yes Hypomagnesemia Monitor with AM labs Replace as needed Respiratory insufficiency Present on Admission: Yes HX of COPD and former smoker On 2lpm via NC No positive pressure per TSS Nebs PRN Chest tube care per TSS Hypertension Present on Admission: Yes PRN hydralazine and labetalol for now Restart home medications when appropriate Nitroglycerin gtt off BPH (benign prostatic hyperplasia) Present on Admission: Yes Restart home Flomax when appropriate HLD (hyperlipidemia) Present on Admission: Yes Home statin when appropriate GERD (gastroesophageal reflux disease) Present on Admission: Yes IV PPI for now Former smoker Present on Admission: Not Applicable Complicates all aspects of care Obesity Present on Admission: Yes BMI 31.7 Complicates all aspects of care Feeding difficulties Present on Admission: Yes Secondary to esophageal cancer Now with J-tube; no crushed medications Hypothyroid Present on Admission: Yes Continue home Synthroid when appropriate Anemia Present on Admission: Yes Hemoglobin 10.9 this AM Monitor with AM labs Thrombocytopenia (CMS/HCC) Present on Admission: Yes Platelets 124 this AM Monitor with AM labs Non-Hospital Problems Stroke (CMS/HCC) Overview Addendum 04/06/2025 4:36 PM by Ty Moctezuma APRN HX of R MCA territory stroke No thrombectomy Crohn disease (CMS/HCC) Feeding: NPO diet Analgesia: Pain Score: 2 HYDROmorphone - 1 MG/ML, 1 MG/ML Sedation: RASS RASS: Alert and calm Level of Consciousness: Alert Thromboembolic prophylaxis: Last Anticoag Admin heparin (porcine) injection 5,000 Units Given 5,000 Units at 0531 Frequency: Every 8 hours scheduled There are additional administrations since 04/04/25 0938 that are not shown. Orders not given: enoxaparin (Lovenox) syringe 40 mg Head of bed: >30 Mobility Orders: Mobility Protocol: General - Mobility Guidelines Extremity Precautions: No Extremity Precautions Other mobility precautions: No other precautions required Ulcer prophylaxis & GI Meds: omeprazole - 20 MG pantoprazole - 40 MG Glucose control: GLU: 107 mg/dL (04/07 54) Spontaneous breathing trials: Bowel regimen (see GI meds above): GI Symptoms: None Invasive lines: Patient Lines/Drains/Airways Status Active Active LDAs Name Placement date Placement time Site Days Peripheral IV 04/06/25 Posterior;Right Hand 04/06/25 0712 Hand 1 Peripheral IV 04/06/25 Left Hand 04/06/25 0808 Hand 1 Chest Tube Right Pleural 28 Fr 04/06/25 1251 Pleural less than 1 Closed/Suction Drain Right;Lateral Pleural Bulb 04/06/25 1252 Pleural less than 1 Gastrostomy/Enterostomy Jejunostomy 14 Fr. LUQ 04/06/25 1030 LUQ less than 1 Urethral Catheter Latex 16 Fr. 04/06/25 0800 -- 1 Arterial Line 04/06/25 Right Radial 04/06/25 0808 Radial 1 De-escalation: Continue routine ICU care Critical Care Performed by: Ty Moctezuma APRN Authorized by: Ty Moctezuma APRN Critical care provider statement: Critical care time (minutes): 33 Critical care time was exclusive of: Separately billable procedures and treating other patients andteaching time Critical care was time spent personally by me on the following activities: Discussions with primaryprovider, evaluation of patient's response to treatment, examination of patient, obtaining history from patient or surrogate, development of treatment plan with patient or surrogate, ordering and performing treatments and interventions, ordering and review of laboratory studies, ordering and reviewof radiographic studies and review of old charts Ty Moctezuma APRN * Care Plan - Bharti Cobian RN - 04/07/2025 6:25 AM EST Problem: Adult Inpatient Plan of Care Goal: Plan of Care Review Outcome: Ongoing, Progressing Flowsheets (Taken 04/07/2025 0621) Progress: improving Outcome Evaluation: pt comfortable overnight, not requiring any continuous medications for BP mngmt will try to walk today Plan of Care Reviewed With: patient spouse Goal: Patient-Specific Goal (Individualized) Outcome: Ongoing, Progressing Flowsheets (Taken 04/06/20251999) Patient/Family-Specific Goals (Include Timeframe): pt will reach a tolerable level of pain and maintain through the night (4 on 1-10 scale) Individualized Care Needs: safety, pain mngmt Anxieties, Fears or Concerns: denies Goal: Absence of Hospital-Acquired Illness or Injury Outcome: Ongoing, Progressing Intervention: Identify and Manage Fall Risk Flowsheets (Taken 04/06/20251999) Safety Promotion/Fall Prevention: activity supervised nonskid shoes/slippers when out of bed safety round/check completed toileting scheduled Intervention: Prevent Skin Injury Flowsheets Taken 04/07/2025620 Skin Protection: incontinence pads utilized Taken 04/07/2025599 Body Position: right turned Intervention: Prevent and Manage VTE (Venous Thromboembolism) Risk Flowsheets (Taken 04/07/2025599) VTE Prevention/Management: bilateral lower extremity SCDs (sequential compression devices) on Intervention: Prevent Infection Flowsheets (Taken 04/07/2025620) Infection Prevention: hand hygiene promoted personal protective equipment utilized rest/sleep promoted Goal: Optimal Comfort and Wellbeing Outcome: Ongoing, Progressing Intervention: Monitor Pain and Promote Comfort Flowsheets (Taken 04/07/2025 0341) Pain Management Interventions: medication (see MAR) Intervention: Provide Person-Centered Care Flowsheets (Taken 04/07/2025620) Trust Relationship/Rapport: care explained choices provided Problem: Infection Goal: Absence of Infection Signs and Symptoms Outcome: Ongoing, Progressing Intervention: Prevent or Manage Infection Flowsheets (Taken 04/07/2025620) Infection Management: aseptic technique maintained Fever Reduction/Comfort Measures: lightweight bedding lightweight clothing Isolation Precautions: precautions maintained Problem: Fall Injury Risk Goal: Absence of Fall and Fall-Related Injury Outcome: Ongoing, Progressing Intervention: Identify and Manage Contributors Flowsheets (Taken 04/07/2025622) Medication Review/Management: medications reviewed dosing adjusted Self-Care Promotion: independence encouraged Intervention: Promote Injury-Free Environment Flowsheets (Taken 04/06/20251999) Safety Promotion/Fall Prevention: activity supervised nonskid shoes/slippers when out of bed safety round/check completed toileting scheduled Problem: Surgery Nonspecified Goal: Absence of Bleeding Outcome: Ongoing, Progressing Intervention: Monitor and Manage Bleeding Flowsheets (Taken 04/07/2025622) Bleeding Management: dressing monitored Goal: Effective Bowel Elimination Outcome: Ongoing, Progressing Intervention: Enhance Bowel Motility and Elimination Flowsheets (Taken 04/07/2025622) Bowel Elimination Management: hygiene measures promoted relaxation techniques promoted Bowel Motility Enhancement: ambulation promoted Goal: Fluid and Electrolyte Balance Outcome: Ongoing, Progressing Intervention: Monitor and Manage Fluid and Electrolyte Balance Flowsheets (Taken 04/07/2025622) Fluid/Electrolyte Management: electrolyte supplement initiated fluids provided Goal: Blood Glucose Level Within Target Range Outcome: Ongoing, Progressing Intervention: Optimize Glycemic Control Flowsheets (Taken 04/07/2025622) Hyperglycemia Management: blood glucose monitored Hypoglycemia Management: blood glucose monitored Goal: Optimal Pain Control and Function Outcome: Ongoing, Progressing Intervention: Prevent or Manage Pain Flowsheets (Taken 04/07/2025622) Pain Management Interventions: medication (see MAR) Diversional Activities: television Goal: Nausea and Vomiting Relief Outcome: Ongoing, Progressing Intervention: Prevent or Manage Nausea and Vomiting Flowsheets (Taken 04/07/2025622) Nausea/Vomiting Interventions: cool cloth applied Goal: Effective Urinary Elimination Outcome: Ongoing, Progressing Intervention: Monitor and Manage Urinary Retention Flowsheets (Taken 04/07/2025622) Urinary Elimination Promotion: catheter patency maintained Goal: Effective Oxygenation and Ventilation Outcome: Ongoing, Progressing Intervention: Optimize Oxygenation and Ventilation Flowsheets Taken 04/07/2025622 Airway/Ventilation Management: airway patency maintained oxygen therapy provided Cough And Deep Breathing: done independently per patient Taken 04/07/202500 Activity Management: activity adjusted per tolerance activity encouraged Head of Bed (HOB) Positioning: HOB elevated * Care Plan - Bharti Cobian RN - 04/07/2025 6:23 AM EST Problem: Adult Inpatient Plan of Care Goal: Plan of Care Review Outcome: Ongoing, Progressing Flowsheets (Taken 04/07/2025620) Progress: improving Outcome Evaluation: pt comfortable overnight, not requiring any continuous medications for BP mngmt will try to walk today Plan of Care Reviewed With: patient spouse Goal: Patient-Specific Goal (Individualized) Outcome: Ongoing, Progressing Flowsheets (Taken 04/06/20251999) Patient/Family-Specific Goals (Include Timeframe): pt will reach a tolerable level of pain and maintain through the night (4 on 1-10 scale) Individualized Care Needs: safety, pain mngmt Anxieties, Fears or Concerns: denies Goal: Absence of Hospital-Acquired Illness or Injury Outcome: Ongoing, Progressing Intervention: Identify and Manage Fall Risk Flowsheets (Taken 04/06/20251999) Safety Promotion/Fall Prevention: activity supervised nonskid shoes/slippers when out of bed safety round/check completed toileting scheduled Intervention: Prevent Skin Injury Flowsheets Taken 04/07/2025620 Skin Protection: incontinence pads utilized Taken 04/07/2025599 Body Position: right turned Intervention: Prevent and Manage VTE (Venous Thromboembolism) Risk Flowsheets (Taken 04/07/2025599) VTE Prevention/Management: bilateral lower extremity SCDs (sequential compression devices) on Intervention: Prevent Infection Flowsheets (Taken 04/07/2025620) Infection Prevention: hand hygiene promoted personal protective equipment utilized rest/sleep promoted Goal: Optimal Comfort and Wellbeing Outcome: Ongoing, Progressing Intervention: Monitor Pain and Promote Comfort Flowsheets (Taken 04/07/2025340) Pain Management Interventions: medication (see MAR) Intervention: Provide Person-Centered Care Flowsheets (Taken 04/07/2025620) Trust Relationship/Rapport: care explained choices provided Problem: Infection Goal: Absence of Infection Signs and Symptoms Outcome: Ongoing, Progressing Intervention: Prevent or Manage Infection Flowsheets (Taken 04/07/2025620) Infection Management: aseptic technique maintained Fever Reduction/Comfort Measures: lightweight bedding lightweight clothing Isolation Precautions: precautions maintained * Care Plan - Mario Alberto Price RN - 04/06/2025 7:24 PM EST Problem: Adult Inpatient Plan of Care Goal: Plan of Care Review Outcome: Ongoing, Progressing Flowsheets (Taken 04/06/2025 0738 by Carlene Goode, RN) Plan of Care Reviewed With: patient spouse Goal: Patient-Specific Goal (Individualized) Outcome: Ongoing, Progressing Flowsheets (Taken 04/06/2025 1600) Patient/Family-Specific Goals (Include Timeframe): Patient will maintain airway patency and adequate oxygenation as evidenced by meeting oxygenation saturation goals (see order). Individualized Care Needs: Patient unable to express. Anxieties, Fears or Concerns: Patient unable to express. Goal: Absence of Hospital-Acquired Illness or Injury Outcome: Ongoing, Progressing Intervention: Identify and Manage Fall Risk Flowsheets (Taken 04/06/2025 192) Safety Promotion/Fall Prevention: activity supervised Intervention: Prevent Skin Injury Flowsheets (Taken 04/06/2025 1800) Body Position: turned heels elevated Intervention: Prevent and Manage VTE (Venous Thromboembolism) Risk Flowsheets (Taken 04/06/2025 1600) VTE Prevention/Management: bilateral SCDs (sequential compression devices) on Intervention: Prevent Infection Flowsheets (Taken 04/06/20251922) Infection Prevention: cohorting utilized Goal: Optimal Comfort and Wellbeing Outcome: Ongoing, Progressing Intervention: Monitor Pain and Promote Comfort Flowsheets (Taken 04/06/2025 1700) Pain Management Interventions: medication (see MAR) Intervention: Provide Person-Centered Care Flowsheets (Taken 04/06/20251922) Trust Relationship/Rapport: care explained choices provided Problem: Infection Goal: Absence of Infection Signs and Symptoms Outcome: Ongoing, Progressing Intervention: Prevent or Manage Infection Flowsheets (Taken 04/06/2025 1600) Isolation Precautions: protective * Assessment & Plan Note - Ty Moctezuma APRN - 04/06/2025 3:21 PM EST Associated Problem(s): Anemia Hemoglobin 12.9 post-op Monitor with AM labs * Assessment & Plan Note - Ty Moctezuma APRN - 04/06/2025 3:21 PM EST Associated Problem(s): Thrombocytopenia (CMS/HCC) Platelet 121 Monitor with AM labs * Assessment & Plan Note - Ty Moctezuma APRN - 04/06/2025 3:00 PM EST Associated Problem(s): JUAN DIEGO (obstructive sleep apnea) No positive pressure s/p esophagectomy per TSS See respiratory insufficiency overview * Assessment & Plan Note - Ty Moctezuma APRN - 04/06/2025 3:00 PM EST Associated Problem(s): Feeding difficulties Secondary to esophageal cancer Now with J-tube; no crushed medications * Assessment & Plan Note - Ty Moctezuma APRN - 04/06/2025 3:00 PM EST Associated Problem(s): Respiratory insufficiency HX of COPD and former smoker On xxx of oxygen No positive pressure per TSS Nebs PRN Chest tube care per TSS * Assessment & Plan Note - Ty Moctezuma APRN - 04/06/2025 3:00 PM EST Associated Problem(s): Obesity BMI 31.7 Complicates all aspects of care * Assessment & Plan Note - Ty Moctezuma APRN - 04/06/2025 3:00 PM EST Associated Problem(s): Hypothyroid Continue home Synthroid when appropriate * Assessment & Plan Note - Ty Moctezuma APRN - 04/06/2025 3:00 PM EST Associated Problem(s): HLD (hyperlipidemia) Home statin when appropriate * Assessment & Plan Note - Ty Moctezuma APRN - 04/06/2025 3:00 PM EST Associated Problem(s): GERD (gastroesophageal reflux disease) IV PPI for now * Assessment & Plan Note - Ty Moctezuma APRN - 04/06/2025 3:00 PM EST Associated Problem(s): Former smoker Complicates all aspects of care * Assessment & Plan Note - Ty Moctezuma APRN - 04/06/2025 3:00 PM EST Associated Problem(s): Esophageal cancer HX of esophageal cancer S/p Dallas Romero Esophagectomy with TSS on 04/06 Strict NPO Chest tube management and SUZAN drain management per TSS * Assessment & Plan Note - Ty Moctezuma APRN - 04/06/2025 3:00 PM EST Associated Problem(s): Electrolyte abnormality Hypocalcemia Monitor with AM labs Replace as needed * Assessment & Plan Note - Ty Moctezuma APRN - 04/06/2025 3:00 PM EST Associated Problem(s): Hypertension PRN hydralazine and labetalol for now Restart home medications when appropriate Nitroglycerin gtt per TSS for hypertension SBP goal 160-180 * Assessment & Plan Note - Ty Moctezuma APRN - 04/06/2025 3:00 PM EST Associated Problem(s): BPH (benign prostatic hyperplasia) Restart home Flomax when appropriate * H&P - Ty Moctezuma APRN - 04/06/2025 2:56 PM ESTAssociated Order(s): Critical Care Post-Procedure Diagnose(s): Malignant neoplasm of lower third of esophagus Images from the original note were not included. [facility] History and Physical HPI Dino Cook is a 70 y.o. male who presents with Esophageal cancer. Dino Cook is a 70-year-old male with PMH of Crohn's Disease, Hypothyroidism, HLD, JUAN DIEGO, GERD, tobacco use, obesity, esophageal cancer, CVA, and TIAs who underwent Dallas Romero Esophagectomy with Thoracic Surgery today. Full list of procedures on 04/06: Bronch, EGD with NGT insertion, Minimally invasive Roderick Romero esophagectomy, Take down of gastrostomy tube, J tube insertion CCM consulted post-op for critical care management. Chest tube to waterseal per TSS. CXR and post-op labs pending. Brought to ICU bed on 6lpm face tent. Nitroglycerin gtt for hypertension per TSS. GCS 13 on arrival to ICU. Lines/Drains/Tubes: . Active . Name Placement date Placement time Site Days Peripheral IV 04/06/25 Posterior;Right Hand 04/06/25 0712 Hand less than 1 Peripheral IV 04/06/25 Left Hand 04/06/25 0808 Hand less than 1 Chest Tube Right Pleural 28 Fr 04/06/25 1251 Pleural less than 1 Closed/Suction Drain Right;Lateral Pleural Bulb 04/06/25 1252 Pleural less than 1 Gastrostomy/Enterostomy Jejunostomy 14 Fr. LUQ 04/06/25 1030 LUQ less than 1 Urethral Catheter Latex 16 Fr. 04/06/25 0800 -- less than 1 Arterial Line 04/06/25 Right Radial 04/06/25 0808 Radial less than 1 Last antibiotic: Patient recently received an antibiotic (last 12 hours) Showing orders from other encounters Date/Time Action Medication Dose 04/06/25 1157 Given ceFAZolin (Ancef) injection 2 g 04/06/25 0757 Given ceFAZolin (Ancef) injection 2 g Per the patient questionnaire: Patient answers are not available for this visit. Past Medical History: Past Medical History[1] Past Surgical History: Surgical History[2] Home Medications: Medications Ordered Prior to Encounter[3] Social History: Social History[4] Reviewed and otherwise non-contributory. Family History: Family History[5] Reviewed and otherwise non-contributory. Allergies: Allergies[6] GCS: Demetrio Coma Scale Score: 15 Review of Systems Constitutional: Positive for fatigue. HENT: Negative. Eyes: Negative. Respiratory: Negative. Cardiovascular: Negative. Gastrointestinal: Negative. Genitourinary: Negative. Musculoskeletal: Positive for back pain. Neurological: Positive for weakness. Psychiatric/Behavioral: Positive for confusion. 14 point ROS reviewed and otherwise negative or unobtainable except as noted above or in HPI. Vital signs: Vitals: 04/06/25 1600 BP: Pulse: 77 Resp: 13 Temp: 36.5 ??C (97.7 ??F) SpO2: 91% Intake/Output Summary (Last 24 hours) at 04/06/2025 1636 Last data filed at 04/06/2025 1600 Gross per 24 hour Intake 3170.68 ml Output 450 ml Net 2720.68 ml Physical Exam: GENERAL: elderly male EYES: anicteric sclerae, PERRLA HENT: Oropharynx clear with moist mucous membranes and no mucosal ulcerations NECK/Lymph: Trachea midline; No thyromegaly or lymphadenopathy . RESP: Good air movement, Breath sounds clear to auscultation. No wheezing. R sided chest tube. Facetent 6lpm CARD: RRR, without murmur, rubs, or gallop Extremities: No edema, cyanosis or clubbing. GI: No organomegaly or masses. Abdomen is soft, nontender and nondistended. BS present x [address] quadrants. J tube in place. NG tube in place. SKIN: No rash, ulcers or subcutaneous nodules. SUZAN drain noted NEURO: confused, moves all extremities, no focal deficit Labs in last 18 hours: CBC WBC 8.57 Hb 12.9 (L) Plt 121 (L) Hct 38.5 (L) ANC ?? INR ??, PTT ??, Anti-Xa ?? BMP Na 138 Cl 105 BUN 9 Glu 164 (H) K 4.2 Co2 24 Cr 0.71 Ca 8.2 (L) iCa 4.5 (L) Mg 1.9, Phos 3.6 Lactate 1.5 LFT AST ?? AlkPhos ?? T Prot ?? ALK ?? Bili ?? Alb ?? D.Bili ?? Imaging as available: === 10/25/24 === MR HEAD WO IV CONTRAST - Narrative - CLINICAL INDICATION: Neuro deficit, acute, stroke suspected [...] seen in the right parietal lobe and temporal-parietaljunction. There is ex vacuo dilatation of the [...] No tonsillar ectopia or mass is present. - Impression - 1. No acute infarct. 2. Encephalomalacia in the right parietal lobe. CRITICAL RESULT: No. COMMUNICATION: Per this written report. Drafted by Devan Sanchez MD on 10/26/2024 10:34 PM Final report signed by Devan Sanchez MD on 10/26/2024 10:36 PM === 11/05/24 === CT [facility] OUTSIDE IMAGES === 10/25/24 === XR ABDOMEN 1 VIEW - Narrative - CLINICAL INDICATION: mri TECHNIQUE: Supine radiograph of the abdomen. COMPARISON: None. FINDINGS: No radiographic foreign bodies or abandoned leads to preclude MRI scan. Nonobstructive bowel gas pattern. Fixation hardware of the lower lumbar spine. There is contrast the urinary bladder. - Impression - No radiographic foreign bodies or abandoned leads to preclude MRI scan CRITICAL RESULT: No. COMMUNICATION: Per this written report. Drafted by Millie Lenz MD on 10/26/2024 7:52 AM Final report signed by Millie Lenz MD on 10/26/2024 7:53 AM Reviewed and agree with above. Assessment and Plan: This patient is critically ill. Assessment & Plan Esophageal cancer Present on Admission: Yes HX of esophageal cancer S/p Dallas Romero Esophagectomy with TSS on 04/06 Strict NPO Chest tube management and SUZAN drain management per TSS JUAN DIEGO (obstructive sleep apnea) Present on Admission: Yes No positive pressure s/p esophagectomy per TSS See respiratory insufficiency overview Electrolyte abnormality Present on Admission: Yes Hypocalcemia Monitor with AM labs Replace as needed Respiratory insufficiency Present on Admission: Yes HX of COPD and former smoker On xxx of oxygen No positive pressure per TSS Nebs PRN Chest tube care per TSS Hypertension Present on Admission: Yes PRN hydralazine and labetalol for now Restart home medications when appropriate Nitroglycerin gtt per TSS for hypertension SBP goal 160-180 BPH (benign prostatic hyperplasia) Present on Admission: Yes Restart home Flomax when appropriate HLD (hyperlipidemia) Present on Admission: Yes Home statin when appropriate GERD (gastroesophageal reflux disease) Present on Admission: Yes IV PPI for now Former smoker Present on Admission: Not Applicable Complicates all aspects of care Obesity Present on Admission: Yes BMI 31.7 Complicates all aspects of care Feeding difficulties Present on Admission: Yes Secondary to esophageal cancer Now with J-tube; no crushed medications Hypothyroid Present on Admission: Yes Continue home Synthroid when appropriate Anemia Present on Admission: Yes Hemoglobin 12.9 post-op Monitor with AM labs Thrombocytopenia (CMS/HCC) Present on Admission: Yes Platelet 121 Monitor with AM labs Non-Hospital Problems Stroke (CMS/HCC) Overview Addendum 04/06/2025 4:36 PM by Ty Moctezuma APRN HX of R MCA territory stroke No thrombectomy Crohn disease (CMS/HCC) Feeding: No diet orders on file Analgesia: Pain Score: 1 HYDROmorphone - 1 MG/ML Sedation: RASS RASS: Drowsy Level of Consciousness: Alert Thromboembolic prophylaxis: Last Anticoag Admin heparin (porcine) injection 5,000 Units Given 5,000 Units at 0706 Frequency: Once Orders not given: heparin (porcine) injection 5,000 Units Head of bed: >30 Mobility Orders: Mobility Protocol: General - Mobility Guidelines Extremity Precautions: No Extremity Precautions Other mobility precautions: No other precautions required Ulcer prophylaxis & GI Meds: omeprazole - 20 MG pantoprazole - 40 MG Glucose control: GLU: 164 mg/dL (04/06 1409) Spontaneous breathing trials: Bowel regimen (see GI meds above): Invasive lines: Patient Lines/Drains/Airways Status Active Active LDAs Name Placement date Placement time Site Days Peripheral IV 04/06/25 Posterior;Right Hand 04/06/25 0712 Hand less than 1 Peripheral IV 04/06/25 Left Hand 04/06/25 0808 Hand less than 1 Chest Tube Right Pleural 28 Fr 04/06/25 1251 Pleural less than 1 Closed/Suction Drain Right;Lateral Pleural Bulb 04/06/25 1252 Pleural less than 1 Gastrostomy/Enterostomy Jejunostomy 14 Fr. LUQ 04/06/25 1030 LUQ less than 1 Urethral Catheter Latex 16 Fr. 04/06/25 0800 -- less than 1 Arterial Line 04/06/25 Right Radial 04/06/25 0808 Radial less than 1 De-escalation: Continue routine ICU care Critical Care Performed by: Ty Moctezuma APRN Authorized by: Ty Moctezuma APRN Critical care provider statement: Critical care time (minutes): 63 Critical care time was exclusive of: Separately billable procedures and treating other patients andteaching time Critical care was time spent personally by me on the following activities: Development of treatmentplan with patient or surrogate, discussions with primary provider, evaluation of patient's responseto treatment, examination of patient, obtaining history from patient or surrogate, ordering and performing treatments and interventions, ordering and review of laboratory studies, ordering and reviewof radiographic studies and review of old charts Ty Moctezuma APRN [1] Past Medical History: Diagnosis Date Esophageal cancer Hypothyroidism Sleep apnea Stroke (CMS/HCC) 10/25/2024 [2] Past Surgical History: Procedure Laterality Date BACK SURGERY x4 LUMBAR FUSION PEG TUBE REMOVAL 11/2024 SKIN CANCER EXCISION x2 [3] No current facility-administered medications on file prior to encounter. Current Outpatient Medications on File Prior to Encounter Medication Sig Dispense Refill armodafinil (Nuvigil) 200 MG tablet Take 1 tablet by mouth daily. aspirin 81 MG chewable tablet Chew 1 tablet daily. 90 tablet 0 Boost [facility] (Boost) [facility] liquid 237 mL by Per PEG Tube route 4 times a day. 55524 mL 5 buPROPion XL (Wellbutrin XL) 300 MG 24 [...] tablet Take 1 tablet by mouth daily. lxavshqp-njwmbltwt-btecgbpmotgop (Maxitrol) 3.5-43901-1.1 ophthalmic suspension 2 times a day. omeprazole (PriLOSEC) [address] capsule ondansetron ODT (Zofran-ODT) [address] 1 TABLET UNDER THE TONGUE AND ALLOW TO DISSOLVE 2 TIMES EACH DAY FOR 2 DAYS AFTER CHEMOTHERAPY potassium chloride CR (Klor-Con) 10 MEQ ER tablet Take 1 tablet by mouth daily. Do not crush, chew,or split. prochlorperazine (Compazine) 10 MG tablet TAKE 1 TABLET EVERY 6 HOURS NEEDED FOR NAUSEA AND VOMITING rosuvastatin (Crestor) 20 MG tablet Take 1 tablet by mouth daily. 30 tablet 0 tamsulosin (Flomax) 0.4 MG 24 hr capsule TAKE 1 CAPSULE 1 TIME EACH DAY FOR PROSTATE Feeding Supplies [facility] [place] Please send months supply of gravity bags and syringes with monthly order 1 each 5 levothyroxine (Synthroid, Levoxyl) 50 MCG tablet Take 1 tablet by mouth daily. (Patient not taking:Reported on 03/27/2025) losartan (Cozaar) 25 MG tablet Take 1 tablet by mouth daily. [4] Social History Socioeconomic History Marital status: Tobacco Use Smoking status: Former Current packs/day: 0.00 Average packs/day: 3.0 packs/day for 33.0 years (99.0 ttl pk-yrs) Types: Cigarettes Start date: 1966 Quit date: 2000 Years since quittin.8 Passive exposure: Past Smokeless tobacco: Never Vaping Use Vaping status: Never Used Substance and Sexual Activity Alcohol use: Not Currently Comment: 1-2 servings weekly Drug use: Never Social Drivers of Health Food Insecurity: No Food Insecurity (10/28/2024) Hunger Vital Sign Worried About Running Out of Food in the Last Year: Never true Ran Out of Food in the Last Year: Never true Transportation Needs: No Transportation Needs (10/28/2024) PRAPARE - Transportation Lack of Transportation (Medical): No Lack of Transportation (Non-Medical): No Intimate Partner Violence: Patient Unable To Answer (10/28/2024) Humiliation, Afraid, Rape, and Kick questionnaire Fear of Current or Ex-Partner: Patient unable to answer Emotionally Abused: Patient unable to answer Physically Abused: Patient unable to answer Sexually Abused: Patient unable to answer Housing Stability: Low Risk (10/28/2024) Housing Stability Vital Sign Unable to Pay for Housing in the Last Year: No Number of Times Moved in the Last Year: 0 Homeless in the Last Year: No [5] Family History Problem Relation Name Age of Onset Lung cancer Father Anesthesia problems Neg Hx Malig Hyperthermia Neg Hx [6] No Known Allergies * Assessment & Plan Note - Ty Moctezuma APRN - 04/06/2025 1:59 PM EST Associated Problem(s): Stroke (CMS/HCC) HX of CVA and TIA * Assessment & Plan Note - Ty Moctezuma APRN - 04/06/2025 1:59 PM EST Associated Problem(s): Crohn disease (CMS/HCC) HX of * Hospital Course - Misha Aguilera DO - 04/06/2025 1:55 PM EST Edwin Cook is a 70 y.o. male who presented to [facility] on 04/06/2025 for surgical intervention of esophageal cancer. On 04/06/2025 the patient was taken to the operating room to undergo minimally invasive Roderick Romero esophagectomy, J tube placement, takedown of prior gastrostomy tube, bronchoscopy, and EGD. The patient was admitted postoperatively for routine post-op care. The patient's perioperative course was uneventful. During the patient's admission, his pain was adequately controlled, nutrition was optimized, mobility was encouraged/advanced as appropriate, and the level of care was deescalated as medically appropriate. On 04/15/2025 the patient was deemed appropriate for discharge to home. At the time of discharge, the patient's pain was controlled with PO pain medications. The patient was tolerating a CLD diet alongside goal tube feeds. The patient was voiding without difficulty. The patient's mobility/activity was appropriate for his current condition. he was determined to have reached maximal benefit of hospital admission. The patient is to follow-up with Dr. Beyer in clinic in 1-2 weeks for initial post op visit. * Op Note - Everett Beyer DO - 04/06/2025 8:05 AM EST Operative Note Date: 04/06/25 Location: [facility] Name: Dino Cook : 1955, Diagnoses: Pre-op Diagnosis Malignant neoplasm of lower third of esophagus s/p neoadjuvant therapy Post-op Diagnosis Malignant neoplasm of lower third of esophagus s/p neoadjuvant therapy Procedure(s): Bronch, EGD with NGT insertion, Minimally invasive Dallas Romero esophagectomy, Take down of gastrostomy tube, J tube insertion Attending Surgeon(s): * Everett Beyer - Primary Frog Farmer(s): * Celestino Mccauley DO - Resident - Assisting * Mario Alberto Franklin MD - Resident - Assisting Anesthesia: General ASA: III Blood Administration: Blood Product Administration History None Estimated Blood Loss: 100ml Drains: Chest Tube Right Pleural 28 Fr (Active) Closed/Suction Drain Right;Lateral Pleural Bulb (Active) Gastrostomy/Enterostomy Jejunostomy 14 Fr. LUQ (Active) Urethral Catheter Latex 16 Fr. (Active) Specimen: Specimens ID Source Frozen? 1 Lymph Node (specify site): No Description: Level 8 2 Esophagus No Description: esophagogastrectomy 3 Esophagus No Description: esophageal anastomotic margin 4 Esophagus No Description: gastric anastomotic margin 5 Esophagus No Description: final gastric margin A Blood, Arterial Narrative: INDICATIONS: This is a 70 y.o. male was found to have a distal esophageal adenocarcinoma. The patient underwent neoadjuvant therapy and restaging PET scan showed appropriate response and no evidence of disseminated disease. Cardiopulmonary status supported resection with curative intent. The risks and benefits of surgery were discussed with the patient. The appropriate consents were signed. DESCRIPTION OF PROCEDURE: The patient was brought to the operating room and placed in the supine position. General anesthesia was induced. Once anesthesia was induced, timeout was called and consent was confirmed and on the chart. The abdomen was prepped and draped in normal sterile fashion. Preoperative antibiotics were administered. Approximately 1 fingerbreadth below the left costal margin, skin incision was made. Veress needle was inserted. Position was confirmed with aspiration, as well assaline meniscus test. Pneumoperitoneum was insufflated to 15 mmHg. Once pneumoperitoneum was established, an 11 mm trocar was placed in the upper abdomen to the left of midline. The abdomen was inspec carlos. There was no evidence of initial trocar injury or disseminated disease. Additional trocars were placed in the following locations: A 5 mm trocar was placed in the left subcostal region, liver retractor was placed through the epigastrium, 12 mm trocar was placed in the upper abdomen to the right of midline, as well as in the right subcostal region, and 11 mm trocar was placed in the right lower quadrant. The patient was placed in steep reverse Trendelenburg and this maneuver exposed the hiatus. The previous gastrostomy was taken down with a endo seema stapler. We began our dissection at thelevel of the gastric hepatic ligament, which was divided to the level of the right nadja. The right nadja was then skeletonized from the decussation, carrying the dissection anteriorly, dividing the gastrophrenic ligament well onto the left nadja. Once the hiatus was dissected free, we turned our attention to the greater curvature. The colon was from the stomach, as well as an omental fat buttress was harvested for later anastomotic bolstering. The short gastrics were divided with the Harmonic scalpel to the level of the left nadja. We then turned our attention to further mobilizing thegreater curvature. This was done with Harmonic scalpel and the right gastroepiploic arcade was protected throughout the dissection. The filmy adhesions to the posterior stomach were divided. The leftgastric vessels were skeletonized and divided with a vascular stapler at their base. Once the stomach was completely freed and the posterior duodenum was kocherized, the pylorus reached the right nadja with ease. We then turned our attention to placing jejunostomy tube. The transverse colon was elevated and the ligament of Treitz was identified approximately 30-40 cm distal to this. A portion of jejunum was found to reach the anterior abdominal wall with ease. A 14-[place] J-tube was placed in the usual Seldinger fashion and anti-torsion stitch was placed. We then turned our attention back to the stomach and formation of the gastric conduit. The stomach was approached at the level of the lone pine's feet using a vascular stapler. The gastric conduit was then formed with sequential firings of thepurple Endo-SEEMA stapler. Once the conduit was from the specimen, the specimen was used for retraction and the esophagus was dissected well into the mediastinum. A [place] drain was placed for ease of delivery into the chest. The conduit was then sutured at 2 points to the specimen for delivery into the chest. Hemostasis was assured. The 11 and 12 mm trocars were closed with an 0 Vicryl and a laparoscopic suture passer. Pneumoperitoneum was allowed to collapse and all trocars removed under direct visualization. Local anesthesia was infiltrated and skin incisions were closed in the usual fashion. The patient was then placed in left lateral decubitus position. All pressure points were padded. The chest was prepped and draped in the normal sterile fashion. At approximately the 8th interspace posterior axillary line, a skin incision was made. An 11 mm trocar was inserted and the chest thoracoscope was inserted. The chest was inspected. There was no evidence of disseminated disease. The chestwas insufflated to 8 mmHg. Additional trocars were placed anteriorly at the 4th interspace, as wellas posterior in the auscultatory triangle and at the 11th and 12th interspace. An additional working port was placed anteriorly. The lung was retracted anteriorly and the pleura was opened from the hiatus to above the azygous vein. The azygous vein was circumferentially dissected and divided with acurved-tip vascular stapler. The Johnnie drain was then delivered into the chest and while being used for retraction, the esophagus was circumferentially dissected to above the azygous vein. The proximal esophagus was divided with a purple Endo-SEEMA stapler and the specimen and the conduit were delivered into the chest. The specimen was then removed with a thoracoscopic retriever bag and sent to pathology for evaluation. Hemostasis was assured and a mediastinal lymph node dissection was performed at that time. A 25 OrVil EEA stapler was placed through the oropharynx and extracorporealized through the esophageal stump. A gastrostomy was then performed and an end-to-side 25 EEA anastomosis wasperformed in the usual fashion. The gastrostomy was closed with sequential firings of the purple Endo- ESEMA stapler. Chest was copiously irrigated with sterile saline. Flexible EGD was reintroduced through the oropharynx to the level of the anastomosis at 28 cm. Under insufflation, there was no evidence of air leak. An NG tube was placed under direct endoscopic visualization and the esophagus and conduit were decompressed. The scope was removed. We then placed Lembert sutures over the esophagogastric anastomosis. The omental fat buttress was then reused throughout the anastomosis and the entirestaple line. A 10-flat Markus-Nye was placed into the posterior mediastinum and secured to the skin. A multilevel intercostal nerve block was placed under direct visualization. A 28 straight chesttube was placed posteriorly into the apex and secured at the skin. The lung was insufflated under direct visualization. All trocars were removed and skin incisions were closed in usual fashion. The patient tolerated the procedure well, was turned supine. The double-lumen endotracheal tube was exchanged for a single-lumen endotracheal tube. Toilet bronchoscopy showed no evidence of defect in the membranous airway and scant secretions down to the level of the segmental marko. These were suctioned. The patient was then extubated and taken to the ICU in stable condition. There were NO signs of surgical site infection (SSI) present at the time of surgery (PATOS). Complications: None; patient tolerated the procedure well. Submitted by: Everett Beyer DO - 04/06/2025 * Brief Op Note - Mario Alberto Franklin MD - 04/06/2025 8:05 AM EST Date: 04/06/25 Location: [facility] Name: Dino Cook, : 1955, Diagnoses: Pre-op Diagnosis Malignant neoplasm of lower third of esophagus Post-op Diagnosis Malignant neoplasm of lower third of esophagus Procedure(s): Minimally invasive roderick romero esophagectomy Upper endoscopy Flexible bronchoscopy Attending Surgeon(s): * Everett Beyer - Primary Frog Farmer(s): * Celestino Mccauley DO - Resident - Assisting * Mario Alberto Franklin MD - Resident - Assisting Anesthesia: General ASA: III Blood Administration: Blood Product Administration History None Estimated Blood Loss: 50cc Drains: Chest Tube Right Pleural 28 Fr (Active) Closed/Suction Drain Right;Lateral Pleural Bulb (Active) Gastrostomy/Enterostomy Jejunostomy 14 Fr. LUQ (Active) Urethral Catheter Latex 16 Fr. (Active) Specimen: Specimens ID Source Frozen? 1 Lymph Node (specify site): No Description: Level 8 2 Esophagus No Description: esophagogastrectomy 3 Esophagus No Description: esophageal anastomotic margin 4 Esophagus No Description: gastric anastomotic margin 5 Esophagus No Description: final gastric margin A Blood, Arterial Findings: No evidence of nodularity or metastatic disease. CT x1. SUZAN drain at anastomosis. J-tube. Groves catheter. NGT at 45cm bridled in place. Hemostatic at end of case. Complications: None; patient tolerated the procedure well. Submitted by: Mario Alberto Franklin MD - 04/06/2025 Cosigned by Everett Beyer DO at 04/06/2025 2:06 PM EST Associated attestation - Everett Beyer DO - 04/06/2025 2:06 PM EST I was present for the entirety of the procedure(s). * H&P - Mario Alberto Franklin MD - 04/06/2025 6:05 AM EST Images from the original note were not included. [facility] Department of Surgery Division of Thoracic Surgery History & Physical Note Reason for Consultation/Chief complaint: Day of Surgery History of Present Illness: Edwin Cook is a 70 y.o. male with PMH recent TIA, Crohn's Disease (no meds), JUAN DIEGO, HLD, GERD, tobacco abuse, obesity and recently diagnosed esophageal cancer who is s/pPEG placement for dysphagia on 12/12/24. He has completed chemorads (last dose 5 weeks ago, 01/31). Using his PEG tube for feeds with no issues. Dysphagia has largely resolved following neoadjuvant treatment. Patient presents today for surgical intervention. No changes to his medical condition since seen in clinic on 03/12/2025. Past Medical History: Past Medical History[1] Past Surgical History: Surgical History[2] Social History: No changes to social history. Family Medical History: family history includes Lung cancer in his father. Allergies: Allergies[3] Home Medications: Current Medications[4] ROS: 14 point ROS was obtained and negative except for what is included in the HPI. Physical exam: VSS Reviewed. General: alert and oriented, appropriate Lungs: CTA B, no wheezes or rhonchi Heart: RRR, no murmurs Abdomen: soft NT/ND, normal bowel sounds Lymph nodes: no palpable supraclavicular or cervical adenopathy Extremities: no peripheral edema Skin: no rash, no cyanosis and warm to touch Psychiatric: oriented to person/place/time and normal mood/affect Imaging: PET 03/12/2025 - significant reduction in uptake within the distal esophagus, no concerning areas software support representative of metastasis Additional Testing: PFT 03/12/2025 - FEV1 72%, DLCO 82.7% Assessment and Plan: Edwin Cook is a 70 y.o. male who presents for minimally invasive roderick romero esophagectomy with jejunostomy tube placement. Patient consented in preop. All questions answered appropriately. -To OR -Admit post op to ICU -Chest laterality: Right Mario Alberto Franklin MD 04/06/25 6:09 AM [1] Past Medical History: Diagnosis Date Esophageal cancer Hypothyroidism Sleep apnea Stroke (CMS/HCC) 10/25/2024 [2] Past Surgical History: Procedure Laterality Date BACK SURGERY x4 LUMBAR FUSION PEG TUBE REMOVAL 11/2024 SKIN CANCER EXCISION x2 [3] No Known Allergies [4] Current Facility-Administered Medications: mupirocin (Bactroban) 2 % ointment 1 Application, 1 Application, Each Nostril, BID, Everett Beyer DO Cosigned by Everett Beyer DO at 04/06/2025 7:37 AM EST Associated attestation - Everett Beyer DO - 04/06/2025 7:37 AM EST I saw and evaluated the patient with the resident/fellow. I discussed the case with the resident/fellow and agree with the findings and plan as documented. * PAT Phone Note - Trisha Duron RN - 03/27/2025 3:10 PM EST SYLVIA Cook is a 70 y.o. male who presents with Pre-op Diagnosis * Malignant neoplasm of lower third of esophagus [C15.5] now scheduled for RODERICK ROMERO ESOPHAGECTOMY(N/A). Date scheduled is 04/06/2025. Past Medical History[1] Family History[1] Social History[1] SURGICAL HISTORY: Surgical History[1] Allergies[1] MEDICATIONS: Current Medications[1] Trisha Duron RN [1] Past Medical History: Diagnosis Date Esophageal cancer Hypothyroidism Sleep apnea Stroke ([facility]) 10/25/2024 [1] Family History Problem Relation Name Age of Onset Lung cancer Father Anesthesia problems Neg Hx Malig Hyperthermia Neg Hx [1] Social History Tobacco Use Smoking status: Former Current packs/day: 0.00 Average packs/day: 3.0 packs/day for 33.0 years (99.0 ttl pk-yrs) Types: Cigarettes Start date: 1966 Quit date: 2000 Years since quittin.8 Passive exposure: Past Smokeless tobacco: Never Vaping Use Vaping status: Never Used Substance Use Topics Alcohol use: Not Currently Comment: 1-2 servings weekly Drug use: Never [1] Past Surgical History: Procedure Laterality Date BACK SURGERY x4 LUMBAR FUSION PEG TUBE REMOVAL 11/2024 SKIN CANCER EXCISION x2 [1] No Known Allergies [1] No current facility-administered medications for this encounter. Current Outpatient Medications: armodafinil, Take 1 tablet by mouth daily. aspirin, Chew 1 tablet daily. Boost [facility], 237 mL by Per PEG Tube route 4 times a day. buPROPion XL, Take 1 tablet by mouth daily. Do not crush, chew, or split. fenofibrate, Take 1 tablet by mouth daily. fluticasone-salmeterol, Inhale 1 puff 2 times a day. Rinse mouth with water after use to reduce aftertaste and incidence of candidiasis. Do not swallow. levothyroxine, Take 1 tablet by mouth daily. losartan, Take 1 tablet by mouth daily. omeprazole, ondansetron ODT, PLACE 1 TABLET UNDER THE TONGUE AND ALLOW TO DISSOLVE 2 TIMES EACH DAY FOR 2 DAYS AFTER CHEMOTHERAPY potassium chloride CR, Take 1 tablet by mouth daily. Do not crush, chew, or split. prochlorperazine, TAKE 1 TABLET EVERY 6 HOURS NEEDED FOR NAUSEA AND VOMITING rosuvastatin, Take 1 tablet by mouth daily. tamsulosin, TAKE 1 CAPSULE 1 TIME EACH DAY FOR PROSTATE Feeding Supplies, Please send months supply of gravity bags and syringes with monthly order levothyroxine, Take 1 tablet by mouth daily. (Patient not taking: Reported on 03/27/2025) [id number]-[id number], 2 times a day. * Preprocedure Instructions - Trisha Duron RN - 03/27/2025 3:06 PM EST Home Medication Instructions Current Medications Medication Instructions armodafinil (Nuvigil) 200 MG tablet Take morning of surgery aspirin 81 MG chewable tablet Take morning of surgery per Dr. Bao Peck [facility] (Boost) [facility] liquid Hold day of surgery buPROPion XL (Wellbutrin XL) 300 MG 24 hr tablet Take morning of surgery fenofibrate (Triglide) 160 MG tablet Take morning of surgery fluticasone-salmeterol (Advair Diskus) 250-50 MCG/ACT diskus inhaler Take morning of surgery levothyroxine (Synthroid, Levoxyl) 200 MCG tablet Take morning of surgery losartan (Cozaar) 25 MG tablet Hold day of surgery omeprazole (PriLOSEC) [address] capsule Take morning of surgery ondansetron ODT (Zofran-ODT) 8 MG disintegrating tablet Take as needed potassium chloride CR (Klor-Con) 10 MEQ ER tablet Hold day of surgery prochlorperazine (Compazine) 10 MG tablet Take as needed rosuvastatin (Crestor) 20 MG tablet Take morning of surgery tamsulosin (Flomax) 0.4 MG 24 hr capsule Take morning of surgery General Preoperative Instructions You will be called the business day before surgery with your arrival time Do not eat anything after midnight. Please hydrate well with clear liquids up to 2 hours prior to arrival for surgery (water, pedialyte, gatorade, apple juice). Nothing red, purple, blue or carbonated. No alcohol or smoking prior to surgery Arrive on time to avoid delays Parking/Registration procedure explained. Park at [address]) Level 1 (Shuttle). [place] on the first floor of [facility]. You MUST have a responsible adult available for transport to and from hospital Visitation policy for the day of surgery reviewed Bring insurance card, photo ID, along with power of surgical instrument mechanic, guardianship or advanced directives if applicable Do not bring money, jewelry or other valuables. No lotion, deodorant, cologne or contact lenses. Hibiclens bathing instructions reviewed if applicable Notify [...] Upcoming Encounters Date Type Department Care Team ([facility] Contact Info) Description 08/20/2025 10:15 AM EDT Office Visit [facility] [address] [facility], [address]nd [place] [address] Everett Beyer, DO [address] [place] [address] Pending Results Name Type Priority Associated Diagnoses Date /Time Prepare Leukocyte Reduced RBC: 2 Units Blood Bank Routine 04/06/2025 6:14 AM EST ECG Adult ECG STAT 04/07/2025 1:4 2 AM EST documented as of this encounter Goals Goal Patient Goal Type Associated Problems Recent Progress Patient-Stated? Author Autogenerat ed Goal Care Plan Autogenerated Problem No Nicole Ty documented as of this encounter Procedures Procedure Name Priority Date/Time Associated Diagnosis Comments XR CHEST 1 VIEW Timed 04/15/2025 4:42 AM EST CBC W/O DIFFERENTIAL Routine 04/15/2025 3:24 AM EST MAGNESIUM, PLASMA Routine 04/15/2025 3:2 4 AM EST RENAL FUNCTION PANEL, PLASMA Routine 04/15/2025 3:24 AM EST POCT GLUCOSE METER UNSOLICITED RESULTS Routine 04/15/2025 12:01 AM EST POCT GLUCOSE METER UNSOLICITED RESULTS Routine 04/14/2025 4:55 PM EST POCT GLUCOSE METER UNSOLICITED RESULTS Routine 04/14/2025 12:01 PM EST POCT GLUCOSE METER UNSOLICITED RESULTS Routine 04/14/2025 7:37 AM EST XR CHEST 1 VIEW Timed 04/14/2025 6:31 AM EST CBC W/O DIFFERENTIAL Routine 04/14/2025 3:34 AM EST MAGNESIUM, PLASMA Routine 04/14/2025 3:3 4 AM EST RENAL FUNCTION PANEL, PLASMA Routine 04/14/2025 3:34 AM EST POCT GLUCOSE METER UNSOLICITED RESULTS Routine 04/14/2025 12:40 AM EST POCT GLUCOSE METER UNSOLICITED RESULTS Routine 04/13/2025 5:06 PM EST WOUND OSTOMY EVAL AND TREAT Routine 04/13/2025 1:42 PM EST POCT GLUCOSE METER UNSOLICITED RESULTS Routine 04/13/2025 11:44 AM EST FL ESOPHAGRAM SINGLE CONTRAST Timed 04/13/2025 10:18 AM EST XR CHEST 1 VIEW Routine 04/13/2025 9:06 AM EST POCT GLUCOSE METER UNSOLICITED RESULTS Routine 04/13/2025 5:59 AM EST CBC W/O DIFFERENTIAL Routine 04/13/2025 5:25 AM EST MAGNESIUM, PLASMA Routine 04/13/2025 5:2 5 AM EST RENAL FUNCTION PANEL, PLASMA Routine 04/13/2025 5:25 AM EST POCT GLUCOSE METER UNSOLICITED RESULTS Routine 04/12/2025 11:53 PM EST POCT GLUCOSE METER UNSOLICITED RESULTS Routine 04/12/2025 5:55 PM EST POCT GLUCOSE METER UNSOLICITED RESULTS Routine 04/12/2025 11:35 AM EST POCT GLUCOSE METER UNSOLICITED RESULTS Routine 04/12/2025 5:57 AM EST CBC W/O DIFFERENTIAL Routine 04/12/2025 4:23 AM EST MAGNESIUM, PLASMA Routine 04/12/2025 4:2 3 AM EST RENAL FUNCTION PANEL, PLASMA Routine 04/12/2025 4:23 AM EST XR CHEST 1 VIEW Routine 04/12/2025 2:12 AM EST POCT GLUCOSE METER UNSOLICITED RESULTS Routine 04/11/2025 11:05 PM EST OXYGEN THERAPY Routine 04/11/2025 8:00 PM EST POCT GLUCOSE METER UNSOLICITED RESULTS Routine 04/11/2025 6:54 PM EST POCT GLUCOSE METER UNSOLICITED RESULTS Routine 04/11/2025 12:14 PM EST OXYGEN THERAPY Routine 04/11/2025 8:00 AM EST POCT GLUCOSE METER UNSOLICITED RESULTS Routine 04/11/2025 5:53 AM EST CBC W/O DIFFERENTIAL Routine 04/11/2025 3:51 AM EST MAGNESIUM, PLASMA Routine 04/11/2025 3:5 1 AM EST RENAL FUNCTION PANEL, PLASMA Routine 04/11/2025 3:51 AM EST XR CHEST 1 VIEW Routine 04/11/2025 3:01 AM EST POCT GLUCOSE METER UNSOLICITED RESULTS Routine 04/10/2025 11:04 PM EST OXYGEN THERAPY Routine 04/10/2025 8:00 PM EST POCT GLUCOSE METER UNSOLICITED RESULTS Routine 04/10/2025 5:55 PM EST POCT GLUCOSE METER UNSOLICITED RESULTS Routine 04/10/2025 12:24 PM EST OXYGEN THERAPY Routine 04/10/2025 8:00 AM EST POCT GLUCOSE METER UNSOLICITED RESULTS Routine 04/10/2025 6:01 AM EST XR CHEST 1 VIEW Routine 04/10/2025 2:17 AM EST POCT GLUCOSE METER UNSOLICITED RESULTS Routine 04/10/2025 12:43 AM EST CBC W/O DIFFERENTIAL Routine 04/10/2025 12:43 AM EST MAGNESIUM, PLASMA Routine 04/10/2025 12: 43 AM EST RENAL FUNCTION PANEL, PLASMA Routine 04/10/2025 12:43 AM EST OXYGEN THERAPY Routine 04/09/2025 8:00 PM EST XR CHEST 1 VIEW Timed 04/09/2025 3:34 PM EST POCT GLUCOSE METER UNSOLICITED RESULTS Routine 04/09/2025 8:56 AM EST OXYGEN THERAPY Routine 04/09/2025 8:00 AM EST CBC W/O DIFFERENTIAL Routine 04/09/2025 5:01 AM EST MAGNESIUM, PLASMA Routine 04/09/2025 5:0 1 AM EST RENAL FUNCTION PANEL, PLASMA Routine 04/09/2025 5:01 AM EST XR CHEST 1 VIEW Routine 04/09/2025 1:50 AM EST POCT GLUCOSE METER UNSOLICITED RESULTS Routine 04/09/2025 12:25 AM EST OXYGEN THERAPY Routine 04/08/2025 8:00 PM EST POCT GLUCOSE METER UNSOLICITED RESULTS Routine 04/08/2025 3:17 PM EST OXYGEN THERAPY Routine 04/08/2025 8:00 AM EST POCT GLUCOSE METER UNSOLICITED RESULTS Routine 04/08/2025 6:03 AM EST XR CHEST 1 VIEW Routine 04/08/2025 3:14 AM EST CBC W/O DIFFERENTIAL Routine 04/08/2025 1:58 AM EST MAGNESIUM, PLASMA Routine 04/08/2025 1:5 8 AM EST RENAL FUNCTION PANEL, PLASMA Routine 04/08/2025 1:58 AM EST POCT GLUCOSE METER UNSOLICITED RESULTS Routine 04/07/2025 11:38 PM EST OXYGEN THERAPY Routine 04/07/2025 8:00 PM EST POCT GLUCOSE METER UNSOLICITED RESULTS Routine 04/07/2025 6:13 PM EST POCT GLUCOSE METER UNSOLICITED RESULTS Routine 04/07/2025 1:19 PM EST MT CRITICAL CARE, E/M 30-74 MINUTES Routine 04/07/2025 9:38 AM EST Malignant neoplasm of lower third of esophagus OXYGEN THERAPY Routine 04/07/2025 8:00 AM EST XR CHEST 1 VIEW Routine 04/07/2025 2:39 AM EST ECG ADULT STAT 04/07/2025 1:42 AM EST IONIZED CALCIUM, WHOLE BLOOD Routine 04/07/2025 1:18 AM EST BLOOD GAS PANEL, ARTERIAL Routine 04/07/2025 1:18 AM EST CBC W/O DIFFERENTIAL Routine 04/07/2025 12:54 AM EST MAGNESIUM, PLASMA Routine 04/07/2025 12: 54 AM EST RENAL FUNCTION PANEL, PLASMA Routine 04/07/2025 12:54 AM EST OXYGEN THERAPY Routine 04/06/2025 8:00 PM EST IVORY AURIS SURVEILLANCE BY PCR Routine 04/06/2025 3:55 PM EST MULTI DRUG RESISTANCE TEST Routine 04/06/2025 3:55 PM EST XR CHEST 1 VIEW STAT 04/06/2025 2:57 PM EST MT CRITICAL CARE, E/M 30-74 MINUTES Routine 04/06/2025 2:56 PM EST Malignant neoplasm of lower third of esophagus CBC W/O DIFFERENTIAL Routine 04/06/2025 2:09 PM EST MAGNESIUM, PLASMA Routine 04/06/2025 2:0 9 PM EST BLOOD GAS PANEL, ARTERIAL Routine 04/06/2025 2:09 PM EST RENAL FUNCTION PANEL, PLASMA Routine 04/06/2025 2:09 PM EST OXYGEN THERAPY Routine 04/06/2025 1:38 PM EST OXYGEN THERAPY Routine 04/06/2025 1:38 PM EST OXYGEN THERAPY Routine 04/06/2025 1:38 PM EST BLOOD GAS PANEL, ARTERIAL STAT 04/06/2025 11:36 AM EST SURGICAL PATHOLOGY EXAM Routine 04/06/2025 11:36 AM EST Malignant neoplasm of lower third of esophagus BLOOD GAS PANEL, ARTERIAL STAT 04/06/2025 8:20 AM EST Malignant neoplasm of lower third of esophagus MT BRONCHOSCOPY,DIAGNOSTI C 04/06/2025 7:14 AM EST Malignant neoplasm of lower third of esophagus MT EDG INTRALUMINAL TUBE/CATHETER INSERTION 04/06/2025 7:14 AM EST Malignant neoplasm of lower third of esophagus MT LAP, SURG JEJUNOSTOMY 04/06/2025 7:14 AM EST Malignant neoplasm of lower third of esophagus MT ESOPHAGECTOMY DISTAL 2/3 W/LAPAROSCOPIC MOBLJ 04/06/2025 7:14 AM EST Malignant neoplasm of lower third of esophagus TYPE AND SCREEN Routine 04/06/2025 7:05 AM EST PREPARE RBC Routine 04/06/2025 6:14 AM EST documented in this encounter Results * XR Chest 1 View (04/15/2025 4:42 AM EST) Anatomical Region Laterality Modality Chest Digital Radiogra phy Impressions 04/15/2025 7:23 AM EST No pneumothorax. Right basilar pleural thickening versus minimal effusion is stable compared to prior. No new consolidation. CRITICAL RESULT: No. COMMUNICATION: Per this written report. Drafted by Joanna Suresh MD on 04/15/2025 7:21 AM Final report signed by Joanna Suresh MD on 04/15/2025 7:23 AM Narrative 04/15/2025 7:23 AM EST CLINICAL INDICATION: Esophagectomy- Pneumo and Effusion Evaluation TECHNIQUE: XR CHEST 1 VIEW COMPARISON: April 14, 2025 chest radiograph FINDINGS: Low lung volumes with crowding of the pulmonary vasculature. No pulmonary edema. Bibasilar atelectasis. Trace right pleural effusion versus thickening, similar to prior. No new consolidation. Bibasilar atelectasis. Cardiac silhouette and mediastinal contours within normal limits. Procedure Note Joanna Suresh MD - 04/15/2025 CLINICAL INDICATION: Esophagectomy- Pneumo and Effusion Evaluation TECHNIQUE: XR CHEST 1 VIEW COMPARISON: April 14, 2025 chest radiograph FINDINGS: Low lung volumes with crowding of the pulmonary vasculature. No pulmonaryedema. Bibasilar atelectasis. Trace right pleural effusion versusthickening, similar to prior. No new consolidation. Bibasilar atelectasis.Cardiac silhouette and mediastinal contours within normal limits. IMPRESSION: No pneumothorax. Right basilar pleural thickening versus minimal effusionis stable compared to prior. No new consolidation. CRITICAL RESULT: No. COMMUNICATION: Per this written report. Drafted by Joanna Suresh MD on 04/15/2025 7:21 AM Final report signed by Joanna Suresh MD on 04/15/2025 7:23 AM Chu Davis [employer] IMG XR PROCEDURES Final Res ult * (ABNORMAL) Renal function panel (04/15/2025 3:24 AM EST) Glucose, Plasma 109(H) 74 - 99 mg/dL 04/15/2025 4:03 AM EST [facility] BUN, Plasma 17 8 - 23 mg/dL 04/15/2025 4:03 AM EST [facility] Creatinine, Plasma 0.71 0.70 - 1.20 mg/dL 04/15/2025 4:03 AM EST [facility] BUN/Creatinine Ratio 24 04/15/2025 4:03 AM EST [facility] Sodium, Plasma 137 136 - 145 mmol/L 04/15/2025 4:03 AM EST [facility] Potassium, Plasma 4.4 3.6 - 4.9 mmol/L 04/15/2025 4:03 AM EST [facility] Chloride, Plasma 101 97 - 107 mmol/L 04/15/2025 4:03 AM EST [facility] CO2, Plasma 26 22 - 29 mmol/L 04/15/2025 4:03 AM EST [facility] Anion Gap 10 6 - 16 mmol/L 04/15/2025 4:03 AM EST [facility] Total Calcium, Plasma 9.1 8.9 - 10.2 mg/dL 04/15/2025 4:03 AM EST [facility] Phosphorus, Plasma 4.2 2.5 - 4.5 mg/dL 04/15/2025 4:03 AM EST [facility] Albumin, Plasma 3.8 3.5 - 5.2 g/dL 04/15/2025 4:03 AM EST [facility] eGFRcr 98.1 mL/min/1.7 3m*2 04/15/2025 4:03 AM EST [facility] Comment:Reported eGFRcr in m L/min/1.73m2 is based the CKD-EPI 2020 equation that does not use a race coefficient. Blood Venous blood specimen / Unknown Venipuncture / Unknown 04/15/2025 3:24 AM EST 04/15/2025 3:34 AM EST Chu Davis APRN LAB BLOOD ORDERABLES Final Result [facility] [address] [place] [address] * Magnesium, Plasma (04/15/2025 3:24 AM EST) Magnesium, Plasma 2.1 1.9 - 2.4 mg/dL 04/15/2025 4:03 AM EST [facility] Blood Venous blood specimen / Unknown Venipuncture / Unknown 04/15/2025 3:24 AM EST 04/15/2025 3:34 AM EST Chu Davis [employer] LAB BLOOD ORDERABLES Final Result [facility] [address] [place] [address] * (ABNORMAL) CBC W/O Differential (04/15/2025 3:24 AM EST) WBC Count 9.12 3.70 - 10.30 10*3/uL LAB HEMATOLOGY METHOD 04/15/2025 3:42 AM EST [facility] RBC Count 4.13(L) 4.60 - 6.10 10*6/uL LAB HEMATOLOGY METHOD 04/15/2025 3:42 AM EST [facility] HGB 13.9 13.7 - 17.5 g/dL LAB HEMATOLOGY METHOD 04/15/2025 3:42 AM EST [facility] HCT 40.2 40.0 - 51.0 % LAB HEMATOLOGY METHOD 04/15/2025 3:42 AM EST [facility] Platelet Count 224 155 - 369 10*3/uL LAB HEMATOLOGY METHOD 04/15/2025 3:42 AM EST [facility] MCV 97 79 - 98 fL LAB HEMATOLOGY METHOD 04/15/2025 3:42 AM EST [facility] MCH 33.7(H) 26.0 - 32.0 pg LAB HEMATOLOGY METHOD 04/15/2025 3:42 AM EST [facility] MCHC 34.6 30.7 - 35.5 g/dL LAB HEMATOLOGY METHOD 04/15/2025 3:42 AM EST [facility] RDW 12.3 11.5 - 14.5 % LAB HEMATOLOGY METHOD 04/15/2025 3:42 AM EST [facility] MPV 10.4 8.8 - 12.5 fL LAB HEMATOLOGY METHOD 04/15/2025 3:42 AM EST [facility] nRBC 0.0 <=0.0 per 100 WBCs LAB HEMATOLOGY METHOD 04/15/2025 3:42 AM EST [facility] Blood Venous blood specimen / Unknown Venipuncture / Unknown 04/15/2025 3:24 AM EST 04/15/2025 3:34 AM EST us Chu Davis APRN LAB BLOOD ORDERABLES Final Result Performing Organization Address City/[facility]/ZIP Co de Phone Number [facility] [address] [place] [address] * (ABNORMAL) POCT glucose meter (04/15/2025 12:01 AM EST) POCT Glucose 121(H) 74 - 99 mg/dL 04/15/2025 12:02 AM EST [facility] Comment:Accuracy of a glucos e result obtained from a capillary whole blood specimen relies upon adequate, non-compromised capillary blood flow. If the capillary glucose result is not consistent with the patient's clinical signs and symptoms, glucose testing should be repeated with either an arterial or venous sample on the glucometer or sent to the main labortory for testing. Comment 04/15/2025 12:02 AM EST [facility] Laboratory Coordinator ID Francheska Holloway 04/15/20 12:02 AM EST [facility] Device ID [id number] 04/15/2025 12:02 AM EST [facility] Specimen Type POC Capillary 04/15/2025 12:02 AM EST [facility] Blood Capillary blood specimen / Unknown 04/15/2025 12:01 AM EST 04/15/2025 12:02 AM EST Everett Beyer DO LAB POINT OF CARE TE ST DOCKED DEVICE UNSOLICITED RESULTS Final Result Performing Organization Address City/[facility]/ZIP Co de Phone Number [facility] [address] [place] [address] * POCT glucose meter (04/14/2025 4:55 PM EST) POCT Glucose 95 74 - 99 mg/dL 04/14/2025 5:01 PM EST [facility] Comment:Accuracy of a glucos e result obtained from a capillary whole blood specimen relies upon adequate, non-compromised capillary blood flow. If the capillary glucose result is not consistent with the patient's clinical signs and symptoms, glucose testing should be repeated with either an arterial or venous sample on the glucometer or sent to the main labortory for testing. Comment 04/14/2025 5:01 PM EST [facility] Laboratory Coordinator ID Nay Montero 04/14/2025 5:01 PM EST [facility] Device ID [id number] 04/14/2025 5:01 PM EST [facility] Specimen Type POC Capillary 04/14/2025 5:01 PM EST [facility] Blood Capillary blood specimen / Unknown 04/14/2025 4:55 PM EST 04/14/2025 5:01 PM EST us Everett Beyer DO LAB POINT OF CARE TE ST DOCKED DEVICE UNSOLICITED RESULTS Final Result Performing Organization Address City/[facility]/ZIP Co de Phone Number [facility] [address] [place] [address] * (ABNORMAL) POCT glucose meter (04/14/2025 12:01 PM EST) Pathologist [facility] POCT Glucose 162(H) 74 - 99 mg/dL 04/14/2025 12:03 PM EST [facility] Comment:Accuracy of a glucos e result obtained from a capillary whole blood specimen relies upon adequate, non-compromised capillary blood flow. If the capillary glucose result is not consistent with the patient's clinical signs and symptoms, glucose testing should be repeated with either an arterial or venous sample on the glucometer or sent to the main labortory for testing. Comment 04/14/2025 12:03 PM EST [facility] Laboratory Coordinator ID Nay Montero 04/14/2025 12:03 PM EST [facility] Device ID [id number] 04/14/2025 12:03 PM EST [facility] Specimen Type POC Capillary 04/14/2025 12:03 PM EST [facility] Blood Capillary blood specimen / Unknown 04/14/2025 12:01 PM EST 04/14/2025 12:03 PM EST us Everett Beyer DO LAB POINT OF CARE TE ST DOCKED DEVICE UNSOLICITED RESULTS Final Result Performing Organization Address City/[facility]/ZIP Co de Phone Number [facility] [address] [place] [address] * POCT glucose meter (04/14/2025 7:37 AM EST) Pathologist [facility] POCT Glucose 98 74 - 99 mg/dL 04/14/2025 7:38 AM EST [facility] Comment:Accuracy of a glucos e result obtained from a capillary whole blood specimen relies upon adequate, non-compromised capillary blood flow. If the capillary glucose result is not consistent with the patient's clinical signs and symptoms, glucose testing should be repeated with either an arterial or venous sample on the glucometer or sent to the main labortory for testing. Comment 04/14/2025 7:38 AM EST [facility] Laboratory Coordinator ID Khoi Flores 04/14/2025 7:38 AM EST [facility] Device ID [id number] 04/14/2025 7:38 AM EST [facility] Specimen Type POC Capillary 04/14/2025 7:38 AM EST [facility] Blood Capillary blood specimen / Unknown 04/14/2025 7:37 AM EST 04/14/2025 7:38 AM EST Everett Beyer DO LAB POINT OF CARE TE ST DOCKED DEVICE UNSOLICITED RESULTS Final Result Performing Organization Address City/State/[facility] Co de Phone Number [facility] [address] [place] [address] * XR Chest 1 View (04/14/2025 6:31 AM EST) Anatomical Region Laterality Modality Chest Digital Radiogra phy Impressions 04/14/2025 10:14 AM EST Sequela of hypoventilatory changes. No new focal opacity. CRITICAL RESULT: No. COMMUNICATION: Per this written report. By electronically signing this report, I, the attending physician, attest that I have personally reviewed the images/data for the above examination(s) and agree with the final edited report. Drafted by Daja Marroquin DO on 04/14/2025 8:51 AM Final report signed by Rolan Avalos on 04/14/2025 10:14 AM Narrative 04/14/2025 10:14 AM EST CLINICAL INDICATION: Esophagectomy- Pneumo and Effusion Evaluation TECHNIQUE: XR CHEST 1 VIEW COMPARISON: April 13, 2025 chest radiograph FINDINGS: Interval removal of an NG tube. Low lung volumes with crowding of the pulmonary vasculature. Bibasilar atelectasis. Trace right pleural effusion versus thickening, similar to prior. No airspace consolidation. Cardiac silhouette and mediastinal contours within normal limits. Procedure Note Rolan Oconnor MD - 04/14/2025 CLINICAL INDICATION: Esophagectomy- Pneumo and Effusion Evaluation TECHNIQUE: XR CHEST 1 VIEW COMPARISON: April 13, 2025 chest radiograph FINDINGS: Interval removal of an NG tube. Low lung volumes with crowding of thepulmonary vasculature. Bibasilar atelectasis. Trace right pleural effusionversus thickening, similar to prior. No airspace consolidation. Cardiacsilhouette and mediastinal contours within normal limits. IMPRESSION: Sequela of hypoventilatory changes. No new focal opacity. CRITICAL RESULT: No. COMMUNICATION: Per this written report. By electronically signing this report, I, the attending physician, attestthat I have personally reviewed the images/data for the aboveexamination(s) and agree with the final edited report. Drafted by Daja Marroquin DO on 04/14/2025 8:51 AM Final report signed by Rolan Avalos on 04/14/2025 10:14 AM us Chu Davis [employer] IMG XR PROCEDURES Final Res ult * (ABNORMAL) Renal function panel (04/14/2025 3:34 AM EST) Glucose, Plasma 115(H) 74 - 99 mg/dL 04/14/2025 4:14 AM EST [facility] BUN, Plasma 17 8 - 23 mg/dL 04/14/2025 4:14 AM EST [facility] Creatinine, Plasma 0.66(L) 0.70 - 1.20 mg/dL 04/14/2025 4:14 AM EST [facility] BUN/Creatinine Ratio 26 04/14/2025 4:14 AM EST [facility] Sodium, Plasma 139 136 - 145 mmol/L 04/14/2025 4:14 AM EST [facility] Potassium, Plasma 3.9 3.6 - 4.9 mmol/L 04/14/2025 4:14 AM EST [facility] Chloride, Plasma 104 97 - 107 mmol/L 04/14/2025 4:14 AM EST [facility] CO2, Plasma 24 22 - 29 mmol/L 04/14/2025 4:14 AM EST [facility] Anion Gap 11 6 - 16 mmol/L 04/14/2025 4:14 AM EST [facility] Total Calcium, Plasma 8.5(L) 8.9 - 10.2 mg/dL 04/14/2025 4:14 AM EST [facility] Phosphorus, Plasma 4.0 2.5 - 4.5 mg/dL 04/14/2025 4:14 AM EST [facility] Albumin, Plasma 3.2(L) 3.5 - 5.2 g/dL 04/14/2025 4:14 AM EST [facility] eGFRcr 100.3 mL/min/1.7 3m*2 04/14/2025 4:14 AM EST [facility] Comment:Reported eGFRcr in m L/min/1.73m2 is based the CKD-EPI 2020 equation that does not use a race coefficient. Blood Venous blood specimen / Unknown Venipuncture / Unknown 04/14/2025 3:34 AM EST 04/14/2025 3:43 AM EST [employer] Davis [employer] LAB BLOOD ORDERABLES Final Result Performing Organization Address City/[facility]/ZIP Co de Phone Number [facility] [address] [place] [address] * Magnesium, Plasma (04/14/2025 3:34 AM EST) Magnesium, Plasma 2.0 1.9 - 2.4 mg/dL 04/14/2025 4:14 AM EST [facility] Blood Venous blood specimen / Unknown Venipuncture / Unknown 04/14/2025 3:34 AM EST 04/14/2025 3:43 AM EST [employer] LAB BLOOD ORDERABLES Final Result Performing Organization Address City/[facility]/ZIP Co de Phone Number [facility] [address] [place] [address] * (ABNORMAL) CBC W/O Differential (04/14/2025 3:34 AM EST) WBC Count 8.82 3.70 - 10.30 10*3/uL LAB HEMATOLOGY METHOD 04/14/2025 3:56 AM EST [facility] RBC Count 3.58(L) 4.60 - 6.10 10*6/uL LAB HEMATOLOGY METHOD 04/14/2025 3:56 AM EST [facility] HGB 11.8(L) 13.7 - 17.5 g/dL LAB HEMATOLOGY METHOD 04/14/2025 3:56 AM EST [facility] HCT 34.8(L) 40.0 - 51.0 % LAB HEMATOLOGY METHOD 04/14/2025 3:56 AM EST [facility] Platelet Count 170 155 - 369 10*3/uL LAB HEMATOLOGY METHOD 04/14/2025 3:56 AM EST [facility] MCV 97 79 - 98 fL LAB HEMATOLOGY METHOD 04/14/2025 3:56 AM EST [facility] MCH 33.0(H) 26.0 - 32.0 pg LAB HEMATOLOGY METHOD 04/14/2025 3:56 AM EST [facility] MCHC 33.9 30.7 - 35.5 g/dL LAB HEMATOLOGY METHOD 04/14/2025 3:56 AM EST [facility] RDW 12.4 11.5 - 14.5 % LAB HEMATOLOGY METHOD 04/14/2025 3:56 AM EST [facility] MPV 10.5 8.8 - 12.5 fL LAB HEMATOLOGY METHOD 04/14/2025 3:56 AM EST [facility] nRBC 0.0 <=0.0 per 100 WBCs LAB HEMATOLOGY METHOD 04/14/2025 3:56 AM EST [facility] Blood Venous blood specimen / Unknown Venipuncture / Unknown 04/14/2025 3:34 AM EST 04/14/2025 3:43 AM EST us Chu Davis APRN LAB BLOOD ORDERABLES Final Result [facility] [address] [place] [address] * (ABNORMAL) POCT glucose meter (04/14/2025 12:40 AM EST) [facility] POCT Glucose 104(H) 74 - 99 mg/dL 04/14/2025 12:42 AM EST [facility] Comment:Accuracy of a glucos e result obtained from a capillary whole blood specimen relies upon adequate, non-compromised capillary blood flow. If the capillary glucose result is not consistent with the patient's clinical signs and symptoms, glucose testing should be repeated with either an arterial or venous sample on the glucometer or sent to the main labortory for testing. Comment 04/14/2025 12:42 AM EST [facility] Laboratory Coordinator ID Jadon Carreno 04/14/2025 12:42 AM EST [facility] Device ID [id number] 04/14/2025 12:42 AM EST [facility] Specimen Type POC Capillary 04/14/2025 12:42 AM EST [facility] Blood Capillary blood specimen / Unknown 04/14/2025 12:40 AM EST 04/14/2025 12:42 AM EST Everett Beyer DO LAB POINT OF CARE TE ST DOCKED DEVICE UNSOLICITED RESULTS Final Result Performing Organization Address City/State/[facility] Co de Phone Number [facility] [address] [place] [address] * (ABNORMAL) POCT glucose meter (04/13/2025 5:06 PM EST) [facility] POCT Glucose 106(H) 74 - 99 mg/dL 04/13/2025 5:08 PM EST [facility] Comment:Accuracy of a glucos e result obtained from a capillary whole blood specimen relies upon adequate, non-compromised capillary blood flow. If the capillary glucose result is not consistent with the patient's clinical signs and symptoms, glucose testing should be repeated with either an arterial or venous sample on the glucometer or sent to the main labortory for testing. Comment 04/13/2025 5:08 PM EST [facility] Laboratory Coordinator ID Ksenia Hernandez 04/13/2025 5:08 PM EST [facility] Device ID [id number] 04/13/2025 5:08 PM EST [facility] Specimen Type POC Capillary 04/13/2025 5:08 PM EST [facility] Blood Capillary blood specimen / Unknown 04/13/2025 5:06 PM EST 04/13/2025 5:08 PM EST us Everett Beyer DO LAB POINT OF CARE TE ST DOCKED DEVICE UNSOLICITED RESULTS Final Result Performing Organization Address [facility] de Phone Number [facility] [address] [place] [address] * (ABNORMAL) POCT glucose meter (04/13/2025 11:44 AM EST) POCT Glucose 139(H) 74 - 99 mg/dL 04/13/2025 11:48 AM EST [facility] Comment:Accuracy of a glucos e result obtained from a capillary whole blood specimen relies upon adequate, non-compromised capillary blood flow. If the capillary glucose result is not consistent with the patient's clinical signs and symptoms, glucose testing should be repeated with either an arterial or venous sample on the glucometer or sent to the main labortory for testing. Comment 04/13/2025 11:48 AM EST [employer] [facility] Laboratory Coordinator ID Ksenia Hernandez 04/13/2025 11:48 AM EST [facility] Device ID [id number] 04/13/2025 11:48 AM EST [facility] Specimen Type POC Capillary 04/13/2025 11:48 AM EST [facility] Blood Capillary blood specimen / Unknown 04/13/2025 11:44 AM EST 04/13/2025 11:48 AM EST us Everett Beyer DO LAB POINT OF CARE TE ST DOCKED DEVICE UNSOLICITED RESULTS Final Result Performing Organization Address [facility] de Phone Number [facility] [address] [place] [address] * FL Esophagram Single Contrast Water Soluble Contrast (04/13/2025 10:18 AM EST) Anatomical Region Laterality Modality Esophagus, stomach and duodenum Digital Radiography Impressions 04/13/2025 2:23 PM EST Postoperative changes of Roderick Romero esophagectomy. No definite evidence of contrast leak though limited evaluation of the esophagus due to aspiration and limited opacification of the esophagus on current exam. CRITICAL RESULT: No. CONTRIBUTOR: COMMUNICATION: Per this written report. By electronically signing this report, I, the attending physician, attest that I have personally reviewed the images/data for the above examination(s) and agree with the final edited report. Drafted by Toribio Goode MD on 04/13/2025 11:49 AM Final report signed by Eric Tellez MD on 04/13/2025 2:23 PM Narrative 04/13/2025 2:23 PM EST CLINICAL INDICATION: s/p esophagectomy; eval anastomosis TECHNIQUE: Fluoroscopic evaluation of the esophagus was performed with water-soluble contrast. Fluoroscopy Time: 1.4 minutes. COMPARISON: None. FINDINGS: Esophagus: Postoperative changes of Dallas Romero esophagectomy. Aspiration of water soluble contrast was noted the optimal opacification of the esophagus with contrast, limiting the evaluation on current exam. Contrast flows readily through the esophagogastric conduit. No extraluminal contrast to suggest leak, however limited due to inability to swallow large bolus contrast and obtained adequate esophageal dilatation. Normal transit of contrast through the intra-abdominal stomach into the duodenum. Procedure Note Eric Tellez MD - 04/13/2025 CLINICAL INDICATION: s/p esophagectomy; eval anastomosis TECHNIQUE: Fluoroscopic evaluation of the esophagus was performed with water- solublecontrast. Fluoroscopy Time: 1.4 minutes. COMPARISON: None. FINDINGS: Esophagus: Postoperative changes of Roderick Romero esophagectomy. Aspirationof water soluble contrast was noted the optimal opacification of theesophagus with contrast, limiting the evaluation on current exam. Contrastflows readily through the esophagogastric conduit. No extraluminalcontrast to suggest leak, however limited due to inability to swallowlarge bolus contrast and obtained adequate esophageal dilatation. Normaltransit of contrast through the intra-abdominal stomach into theduodenum. IMPRESSION: Postoperative changes of Roderick Romero esophagectomy. No definite evidence ofcontrast leak though limited evaluation of the esophagus due to aspirationand limited opacification of the esophagus on current exam. CRITICAL RESULT: No. CONTRIBUTOR: COMMUNICATION: Per this written report. By electronically signing this report, I, the attending physician, attestthat I have personally reviewed the images/data for the aboveexamination(s) and agree with the final edited report. Drafted by Toribio Goode MD on 04/13/2025 11:49 AM Final report signed by Eric Tellez MD on 04/13/2025 2:23 PM Everett Beyer DO IMG FLUOROSCOPY PROCEDURES Fi nal Result * XR Chest 1 View (04/13/2025 9:06 AM EST) Anatomical Region Laterality Modality Chest Digital Radiogra phy Impressions 04/13/2025 12:16 PM EST Stable chest radiograph. CRITICAL RESULT: No. COMMUNICATION: Per this written report. By electronically signing this report, I, the attending physician, attest that I have personally reviewed the images/data for the above examination(s) and agree with the final edited report. Drafted by Ap Francis III, MD on 04/13/2025 10:10 AM Final report signed by Henrry Harrell MD on 04/13/2025 12:16 PM Narrative 04/13/2025 12:16 PM EST CLINICAL INDICATION: Postoperative TECHNIQUE: XR CHEST 1 VIEW COMPARISON: Chest radiograph dated 04/11/2025 and 04/12/2025 FINDINGS: Stable positioning of support devices. Stable bibasilar opacities, likely atelectasis. No new focal consolidation. No pneumothorax. Small bilateral pleural effusions. The mediastinal and cardiac contours are stable. Procedure Note Henrry Harrell MD - 04/13/2025 CLINICAL INDICATION: Postoperative TECHNIQUE: XR CHEST 1 VIEW COMPARISON: Chest radiograph dated 04/11/2025 and 04/12/2025 FINDINGS: Stable positioning of support devices. Stable bibasilar opacities, likelyatelectasis. No new focal consolidation. No pneumothorax. Small bilateralpleural effusions. The mediastinal and cardiac contours are stable. IMPRESSION: Stable chest radiograph. CRITICAL RESULT: No. COMMUNICATION: Per this written report. By electronically signing this report, I, the attending physician, attestthat I have personally reviewed the images/data for the aboveexamination(s) and agree with the final edited report. Drafted by Ap Francis III, MD on 04/13/2025 10:10 AM Final report signed by Henrry Harrell MD on 04/13/2025 12:16 PM us Everett Beyer DO IMG XR PROCEDURES Final Resul t * (ABNORMAL) POCT glucose meter (04/13/2025 5:59 AM EST) POCT Glucose 137(H) 74 - 99 mg/dL 04/13/2025 6:04 AM EST [facility] Comment:Accuracy of a glucos e result obtained from a capillary whole blood specimen relies upon adequate, non-compromised capillary blood flow. If the capillary glucose result is not consistent with the patient's clinical signs and symptoms, glucose testing should be repeated with either an arterial or venous sample on the glucometer or sent to the main labortory for testing. Comment 04/13/2025 6:04 AM EST [facility] Laboratory Coordinator ID Braeden Felix 025 6:04 AM EST [facility] Device ID [id number] 04/13/2025 6:04 AM EST [facility] Specimen Type POC Capillary 04/13/2025 6:04 AM EST [facility] Blood Capillary blood specimen / Unknown 04/13/2025 5:59 AM EST 04/13/2025 6:04 AM EST us Everett Beyer DO LAB POINT OF CARE TE ST DOCKED DEVICE UNSOLICITED RESULTS Final Result Performing Organization Address [facility] Co de Phone Number [facility] [address] [place] [address] * Magnesium, Plasma (04/13/2025 5:25 AM EST) Magnesium, Plasma 2.0 1.9 - 2.4 mg/dL 04/13/2025 6:31 AM EST [facility] Blood Venous blood specimen / Unknown Venipuncture / Unknown 04/13/2025 5:25 AM EST 04/13/2025 5:58 AM EST us Everett Beyer DO LAB BLOOD ORDERABLES Final Re sult Performing Organization Address City/[facility]/ZIP Co de Phone Number [facility] [address] [place] [address] * (ABNORMAL) Renal Function Panel, Plasma (04/13/2025 5:25 AM EST) Glucose, Plasma 142(H) 74 - 99 mg/dL 04/13/2025 6:31 AM EST [facility] BUN, Plasma 14 8 - 23 mg/dL 04/13/2025 6:31 AM [facility] Creatinine, Plasma 0.57(L) 0.70 - 1.20 mg/dL 04/13/2025 6:31 AM EST [facility] BUN/Creatinine Ratio 25 04/13/2025 6:31 AM EST [facility] Sodium, Plasma 136 136 - 145 mmol/L 04/13/2025 6:31 AM [facility] Potassium, Plasma 3.6 3.6 - 4.9 mmol/L 04/13/2025 6:31 AM [facility] Chloride, Plasma 103 97 - 107 mmol/L 04/13/2025 6:31 AM [facility] CO2, Plasma 22 22 - 29 mmol/L 04/13/2025 6:31 AM [facility] Anion Gap 11 6 - 16 mmol/L 04/13/2025 6:31 AM EST [facility] Total Calcium, Plasma 8.5(L) 8.9 - 10.2 mg/dL 04/13/2025 6:31 AM [facility] Phosphorus, Plasma 3.4 2.5 - 4.5 mg/dL 04/13/2025 6:31 AM [facility] Albumin, Plasma 3.3(L) 3.5 - 5.2 g/dL 04/13/2025 6:31 AM [facility] eGFRcr 104.8 mL/min/1.7 3m*2 04/13/2025 6:31 AM [facility] Comment:Reported eGFRcr in m L/min/1.73m2 is based the CKD-EPI 2020 equation that does not use a race coefficient. Blood Venous blood specimen / Unknown Venipuncture / Unknown 04/13/2025 5:25 AM EST 04/13/2025 5:58 AM EST us Everett Beyer DO LAB BLOOD ORDERABLES Final Re sult [facility] [address] [place] [address] * (ABNORMAL) CBC W/O Differential (04/13/2025 5:25 AM EST) WBC Count 9.14 3.70 - 10.30 10*3/uL LAB HEMATOLOGY METHOD 04/13/2025 6:17 AM EST [facility] RBC Count 3.86(L) 4.60 - 6.10 10*6/uL LAB HEMATOLOGY METHOD 04/13/2025 6:17 AM EST [facility] HGB 12.9(L) 13.7 - 17.5 g/dL LAB HEMATOLOGY METHOD 04/13/2025 6:17 AM EST [facility] HCT 37.4(L) 40.0 - 51.0 % LAB HEMATOLOGY METHOD 04/13/2025 6:17 AM EST [facility] Platelet Count 164 155 - 369 10*3/uL LAB HEMATOLOGY METHOD 04/13/2025 6:17 AM EST [facility] MCV 97 79 - 98 fL LAB HEMATOLOGY METHOD 04/13/2025 6:17 AM EST [facility] MCH 33.4(H) 26.0 - 32.0 pg LAB HEMATOLOGY METHOD 04/13/2025 6:17 AM EST [facility] MCHC 34.5 30.7 - 35.5 g/dL LAB HEMATOLOGY METHOD 04/13/2025 6:17 AM EST [facility] RDW 12.5 11.5 - 14.5 % LAB HEMATOLOGY METHOD 04/13/2025 6:17 AM EST [facility] MPV 10.4 8.8 - 12.5 fL LAB HEMATOLOGY METHOD 04/13/2025 6:17 AM EST [facility] nRBC 0.0 <=0.0 per 100 WBCs LAB HEMATOLOGY METHOD 04/13/2025 6:17 AM EST [facility] Blood Venous blood specimen / Unknown Venipuncture / Unknown 04/13/2025 5:25 AM EST 04/13/2025 6:00 AM EST us Everett Beyer DO LAB BLOOD ORDERABLES Final Re sult [facility] [address] [place] [address] * (ABNORMAL) POCT glucose meter (04/12/2025 11:53 PM EST) POCT Glucose 115(H) 74 - 99 mg/dL 04/13/2025 12:02 AM EST [facility] Comment:Accuracy of a glucos e result obtained from a capillary whole blood specimen relies upon adequate, non-compromised capillary blood flow. If the capillary glucose result is not consistent with the patient's clinical signs and symptoms, glucose testing should be repeated with either an arterial or venous sample on the glucometer or sent to the main labortory for testing. Comment 04/13/2025 12:02 AM EST [facility] Laboratory Coordinator ID Conniejoshua Braeden 025 12:02 AM EST [facility] Device ID [id number] 04/13/2025 12:02 AM EST [facility] Specimen Type POC Capillary 04/13/2025 12:02 AM EST [facility] Blood Capillary blood specimen / Unknown 04/12/2025 11:53 PM EST 04/13/2025 12:02 AM EST Everett Beyer DO LAB POINT OF CARE TE ST DOCKED DEVICE UNSOLICITED RESULTS Final Result [facility] [address] [place] [address] * (ABNORMAL) POCT glucose meter (04/12/2025 5:55 PM EST) Pathologist [facility] POCT Glucose 141(H) 74 - 99 mg/dL 04/12/2025 5:57 PM EST [facility] Comment:Accuracy of a glucos e result obtained from a capillary whole blood specimen relies upon adequate, non-compromised capillary blood flow. If the capillary glucose result is not consistent with the patient's clinical signs and symptoms, glucose testing should be repeated with either an arterial or venous sample on the glucometer or sent to the main labortory for testing. Comment 04/12/2025 5:57 PM EST [facility] Laboratory Coordinator ID Godfrey [place]an[place]Ksenia 04/12/2025 5:57 PM EST [facility] Device ID [id number] 04/12/2025 5:57 PM EST [facility] Specimen Type POC Capillary 04/12/2025 5:57 PM EST [facility] Blood Capillary blood specimen / Unknown 04/12/2025 5:55 PM EST 04/12/2025 5:57 PM EST us Everett eByer DO LAB POINT OF CARE TE ST DOCKED DEVICE UNSOLICITED RESULTS Final Result Performing Organization Address City/[facility] Co de Phone Number [facility] [address] [place] [address] * (ABNORMAL) POCT glucose meter (04/12/2025 11:35 AM EST) POCT Glucose 118(H) 74 - 99 mg/dL 04/12/2025 11:40 AM EST [facility] Comment:Accuracy of a glucos e result obtained from a capillary whole blood specimen relies upon adequate, non-compromised capillary blood flow. If the capillary glucose result is not consistent with the patient's clinical signs and symptoms, glucose testing should be repeated with either an arterial or venous sample on the glucometer or sent to the main labortory for testing. Comment 04/12/2025 11:40 AM EST [facility] Laboratory Coordinator ID Ksenia Hernandez 04/12/2025 11:40 AM EST [facility] Device ID [id number] 04/12/2025 11:40 AM EST [facility] Specimen Type POC Capillary 04/12/2025 11:40 AM EST [facility] Blood Capillary blood specimen / Unknown 04/12/2025 11:35 AM EST 04/12/2025 11:40 AM EST us Everett Beyer DO LAB POINT OF CARE TE ST DOCKED DEVICE UNSOLICITED RESULTS Final Result Performing Organization Address City/[facility]/ZIP Co de Phone Number [facility] [address] [place] [address] * (ABNORMAL) POCT glucose meter (04/12/2025 5:57 AM EST) POCT Glucose 116(H) 74 - 99 mg/dL 04/12/2025 5:58 AM EST [facility] Comment:Accuracy of a glucos e result obtained from a capillary whole blood specimen relies upon adequate, non-compromised capillary blood flow. If the capillary glucose result is not consistent with the patient's clinical signs and symptoms, glucose testing should be repeated with either an arterial or venous sample on the glucometer or sent to the main labortory for testing. Comment 04/12/2025 5:58 AM EST [facility] Laboratory Coordinator ID Jose Reyes 04/12/2025 5:58 AM EST [facility] Device ID [id number] 04/12/2025 5:58 AM EST [facility] Specimen Type POC Capillary 04/12/2025 5:58 AM EST [facility] Blood Capillary blood specimen / Unknown 04/12/2025 5:57 AM EST 04/12/2025 5:58 AM EST us Everett Beyer DO LAB POINT OF CARE TE ST DOCKED DEVICE UNSOLICITED RESULTS Final Result Performing Organization Address City/[facility]/ZIP Co de Phone Number [facility] [address] [place] [address] * Magnesium, Plasma (04/12/2025 4:23 AM EST) Magnesium, Plasma 2.0 1.9 - 2.4 mg/dL 04/12/2025 5:05 AM EST [facility] Blood Venous blood specimen / Unknown Venipuncture / Unknown 04/12/2025 4:23 AM EST 04/12/2025 4:36 AM EST us Everett Beyer DO LAB BLOOD ORDERABLES Final Re sult [facility] [address] [place] [address] * (ABNORMAL) Renal Function Panel, Plasma (04/12/2025 4:23 AM EST) Glucose, Plasma 112(H) 74 - 99 mg/dL 04/12/2025 5:05 AM EST [facility] BUN, Plasma 15 8 - 23 mg/dL 04/12/2025 5:05 AM EST [facility] Creatinine, Plasma 0.59(L) 0.70 - 1.20 mg/dL 04/12/2025 5:05 AM EST [facility] BUN/Creatinine Ratio 25 04/12/2025 5:05 AM EST [facility] Sodium, Plasma 138 136 - 145 mmol/L 04/12/2025 5:05 AM EST [facility] Potassium, Plasma 3.7 3.6 - 4.9 mmol/L 04/12/2025 5:05 AM EST [facility] Chloride, Plasma 106 97 - 107 mmol/L 04/12/2025 5:05 AM EST [facility] CO2, Plasma 24 22 - 29 mmol/L 04/12/2025 5:05 AM EST [facility] Anion Gap 8 6 - 16 mmol/L 04/12/2025 5:05 AM EST [facility] Total Calcium, Plasma 8.3(L) 8.9 - 10.2 mg/dL 04/12/2025 5:05 AM EST [facility] Phosphorus, Plasma 4.1 2.5 - 4.5 mg/dL 04/12/2025 5:05 AM EST [facility] Albumin, Plasma 3.1(L) 3.5 - 5.2 g/dL 04/12/2025 5:05 AM EST [facility] eGFRcr 103.7 mL/min/1.7 3m*2 04/12/2025 5:05 AM EST [facility] Comment:Reported eGFRcr in m L/min/1.73m2 is based the CKD-EPI 2020 equation that does not use a race coefficient. Blood Venous blood specimen / Unknown Venipuncture / Unknown 04/12/2025 4:23 AM EST 04/12/2025 4:36 AM EST Everett Beyer DO LAB BLOOD ORDERABLES Final Re sult [facility] [address] [place] [address] * (ABNORMAL) CBC W/O Differential (04/12/2025 4:23 AM EST) WBC Count 7.30 3.70 - 10.30 10*3/uL LAB HEMATOLOGY METHOD 04/12/2025 4:43 AM EST [facility] RBC Count 3.68(L) 4.60 - 6.10 10*6/uL LAB HEMATOLOGY METHOD 04/12/2025 4:43 AM EST [facility] HGB 12.0(L) 13.7 - 17.5 g/dL LAB HEMATOLOGY METHOD 04/12/2025 4:43 AM EST [facility] HCT 35.6(L) 40.0 - 51.0 % LAB HEMATOLOGY METHOD 04/12/2025 4:43 AM EST [facility] Platelet Count 146(L) 155 - 369 10*3/uL LAB HEMATOLOGY METHOD 04/12/2025 4:43 AM EST [facility] MCV 97 79 - 98 fL LAB HEMATOLOGY METHOD 04/12/2025 4:43 AM EST [facility] MCH 32.6(H) 26.0 - 32.0 pg LAB HEMATOLOGY METHOD 04/12/2025 4:43 AM EST [facility] MCHC 33.7 30.7 - 35.5 g/dL LAB HEMATOLOGY METHOD 04/12/2025 4:43 AM EST [facility] RDW 12.6 11.5 - 14.5 % LAB HEMATOLOGY METHOD 04/12/2025 4:43 AM EST [facility] MPV 10.1 8.8 - 12.5 fL LAB HEMATOLOGY METHOD 04/12/2025 4:43 AM EST [facility] nRBC 0.0 <=0.0 per 100 WBCs LAB HEMATOLOGY METHOD 04/12/2025 4:43 AM EST [facility] Blood Venous blood specimen / Unknown Venipuncture / Unknown 04/12/2025 4:23 AM EST 04/12/2025 4:36 AM EST Everett Beyer DO LAB BLOOD ORDERABLES Final Re sult [facility] [address] [place] [address] * XR Chest 1 View (04/12/2025 2:12 AM EST) Anatomical Region Laterality Modality Chest Digital Radiogra phy Impressions 04/12/2025 11:30 AM EST No significant interval change. CRITICAL RESULT: No. COMMUNICATION: Per this written report. Drafted by Eric Tellez MD on 04/12/2025 11:29 AM Final report signed by Eric Tellez MD on 04/12/2025 11:30 AM Narrative 04/12/2025 11:30 AM EST CLINICAL INDICATION: PostOp Esophagectomy TECHNIQUE: Single AP view of chest. COMPARISON: One day prior FINDINGS: The cardiomediastinal contours unchanged. No pneumothorax. Trace pleural effusions. Bibasal lung opacities which may represent atelectasis. No new lung consolidation. Procedure Note Eric Tellez MD - 04/12/2025 CLINICAL INDICATION: PostOp Esophagectomy TECHNIQUE: Single AP view of chest. COMPARISON: One day prior FINDINGS: The cardiomediastinal contours unchanged. No pneumothorax. Trace pleuraleffusions. Bibasal lung opacities which may represent atelectasis. No newlung consolidation. IMPRESSION: No significant interval change. CRITICAL RESULT: No. COMMUNICATION: Per this written report. Drafted by Eric Tellez MD on 04/12/2025 11:29 AM Final report signed by Eric Tellez MD on 04/12/2025 11:30 AM Everett Beyer DO IMG XR PROCEDURES Final Resul t * (ABNORMAL) POCT glucose meter (04/11/2025 11:05 PM EST) POCT Glucose 106(H) 74 - 99 mg/dL 04/11/2025 11:07 PM EST [facility] Comment:Accuracy of a glucos e result obtained from a capillary whole blood specimen relies upon adequate, non-compromised capillary blood flow. If the capillary glucose result is not consistent with the patient's clinical signs and symptoms, glucose testing should be repeated with either an arterial or venous sample on the glucometer or sent to the main labortory for testing. Comment 04/11/2025 11:07 PM EST [facility] Laboratory Coordinator ID Jose Reyes 04/11/2025 11:07 PM EST [facility] Device ID [id number] 04/11/2025 11:07 PM EST [facility] Specimen Type POC Capillary 04/11/2025 11:07 PM EST [facility] Blood Capillary blood specimen / Unknown 04/11/2025 11:05 PM EST 04/11/2025 11:07 PM EST us Everett Beyer DO LAB POINT OF CARE TE ST DOCKED DEVICE UNSOLICITED RESULTS Final Result Performing Organization Address [facility] de Phone Number [facility] [address] [place] [address] * (ABNORMAL) POCT glucose meter (04/11/2025 6:54 PM EST) POCT Glucose 117(H) 74 - 99 mg/dL 04/11/2025 6:56 PM EST [facility] Comment:Accuracy of a glucos e result obtained from a capillary whole blood specimen relies upon adequate, non-compromised capillary blood flow. If the capillary glucose result is not consistent with the patient's clinical signs and symptoms, glucose testing should be repeated with either an arterial or venous sample on the glucometer or sent to the main labortory for testing. Comment 04/11/2025 6:56 PM EST [facility] Laboratory Coordinator ID Romel Sood Merritt 6:56 PM EST [facility] Device ID [id number] 04/11/2025 6:56 PM EST [facility] Specimen Type POC Capillary 04/11/2025 6:56 PM EST [facility] Blood Capillary blood specimen / Unknown 04/11/2025 6:54 PM EST 04/11/2025 6:56 PM EST us Everett Beyer DO LAB POINT OF CARE TE ST DOCKED DEVICE UNSOLICITED RESULTS Final Result Performing Organization Address [facility] Phone Number [facility] [address] [place] [address] * (ABNORMAL) POCT glucose meter (04/11/2025 12:14 PM EST) POCT Glucose 171(H) 74 - 99 mg/dL 04/11/2025 12:16 PM EST [facility] Comment:Accuracy of a glucos e result obtained from a capillary whole blood specimen relies upon adequate, non-compromised capillary blood flow. If the capillary glucose result is not consistent with the patient's clinical signs and symptoms, glucose testing should be repeated with either an arterial or venous sample on the glucometer or sent to the main labortory for testing. Comment 04/11/2025 12:16 PM EST [facility] Laboratory Coordinator ID Romel Sood 12:16 PM EST [facility] Device ID [id number] 04/11/2025 12:16 PM EST [facility] Specimen Type POC Capillary 04/11/2025 12:16 PM EST [facility] Blood Capillary blood specimen / Unknown 04/11/2025 12:14 PM EST 04/11/2025 12:16 PM EST us Everett Beyer DO LAB POINT OF CARE TE ST DOCKED DEVICE UNSOLICITED RESULTS Final Result Performing Organization Address City/[facility]/ZIP Co de Phone Number [facility] [address] [place] [address] * (ABNORMAL) POCT glucose meter (04/11/2025 5:53 AM EST) [facility] POCT Glucose 114(H) 74 - 99 mg/dL 04/11/2025 5:54 AM EST [facility] Comment:Accuracy of a glucos e result obtained from a capillary whole blood specimen relies upon adequate, non-compromised capillary blood flow. If the capillary glucose result is not consistent with the patient's clinical signs and symptoms, glucose testing should be repeated with either an arterial or venous sample on the glucometer or sent to the main labortory for testing. Comment 04/11/2025 5:54 AM EST [facility] Laboratory Coordinator ID Jose Reyes 04/11/2025 5:54 AM EST [facility] Device ID [id number] 04/11/2025 5:54 AM EST [facility] Specimen Type POC Capillary 04/11/2025 5:54 AM EST [facility] Blood Capillary blood specimen / Unknown 04/11/2025 5:53 AM EST 04/11/2025 5:54 AM EST us Everett Beyer DO LAB POINT OF CARE TE ST DOCKED DEVICE UNSOLICITED RESULTS Final Result Performing Organization Address City/[facility]/ZIP Co de Phone Number [facility] [address] [place] [address] * Magnesium, Plasma (04/11/2025 3:51 AM EST) [facility] Magnesium, Plasma 2.1 1.9 - 2.4 mg/dL 04/11/2025 4:29 AM EST [facility] Blood Venous blood specimen / Unknown Venipuncture / Unknown 04/11/2025 3:51 AM EST 04/11/2025 4:00 AM EST us Everett Beyer DO LAB BLOOD ORDERABLES Final Re sult [facility] [address] [place] [address] * (ABNORMAL) Renal Function Panel, Plasma (04/11/2025 3:51 AM EST) Glucose, Plasma 102(H) 74 - 99 mg/dL 04/11/2025 4:29 AM EST [facility] BUN, Plasma 12 8 - 23 mg/dL 04/11/2025 4:29 AM EST [facility] Creatinine, Plasma 0.59(L) 0.70 - 1.20 mg/dL 04/11/2025 4:29 AM EST [facility] BUN/Creatinine Ratio 20 04/11/2025 4:29 AM EST [facility] Sodium, Plasma 139 136 - 145 mmol/L 04/11/2025 4:29 AM EST [facility] Potassium, Plasma 3.8 3.6 - 4.9 mmol/L 04/11/2025 4:29 AM EST [facility] Chloride, Plasma 106 97 - 107 mmol/L 04/11/2025 4:29 AM EST [facility] CO2, Plasma 24 22 - 29 mmol/L 04/11/2025 4:29 AM EST [facility] Anion Gap 9 6 - 16 mmol/L 04/11/2025 4:29 AM EST [facility] Total Calcium, Plasma 8.4(L) 8.9 - 10.2 mg/dL 04/11/2025 4:29 AM EST [facility] Phosphorus, Plasma 3.7 2.5 - 4.5 mg/dL 04/11/2025 4:29 AM EST [facility] Albumin, Plasma 3.2(L) 3.5 - 5.2 g/dL 04/11/2025 4:29 AM EST [facility] eGFRcr 103.7 mL/min/1.7 3m*2 04/11/2025 4:29 AM EST [facility] Comment:Reported eGFRcr in m L/min/1.73m2 is based the CKD-EPI 2020 equation that does not use a race coefficient. Blood Venous blood specimen / Unknown Venipuncture / Unknown 04/11/2025 3:51 AM EST 04/11/2025 4:00 AM EST Everett Beyer DO LAB BLOOD ORDERABLES Final Re sult [facility] [address] [place] [address] * (ABNORMAL) CBC W/O Differential (04/11/2025 3:51 AM EST) WBC Count 6.73 3.70 - 10.30 10*3/uL LAB HEMATOLOGY METHOD 04/11/2025 4:09 AM EST [facility] RBC Count 3.78(L) 4.60 - 6.10 10*6/uL LAB HEMATOLOGY METHOD 04/11/2025 4:09 AM EST [facility] HGB 12.7(L) 13.7 - 17.5 g/dL LAB HEMATOLOGY METHOD 04/11/2025 4:09 AM EST [facility] HCT 36.7(L) 40.0 - 51.0 % LAB HEMATOLOGY METHOD 04/11/2025 4:09 AM EST [facility] Platelet Count 141(L) 155 - 369 10*3/uL LAB HEMATOLOGY METHOD 04/11/2025 4:09 AM EST [facility] MCV 97 79 - 98 fL LAB HEMATOLOGY METHOD 04/11/2025 4:09 AM EST [facility] MCH 33.6(H) 26.0 - 32.0 pg LAB HEMATOLOGY METHOD 04/11/2025 4:09 AM EST [facility] MCHC 34.6 30.7 - 35.5 g/dL LAB HEMATOLOGY METHOD 04/11/2025 4:09 AM EST [facility] RDW 12.8 11.5 - 14.5 % LAB HEMATOLOGY METHOD 04/11/2025 4:09 AM EST [facility] MPV 10.4 8.8 - 12.5 fL LAB HEMATOLOGY METHOD 04/11/2025 4:09 AM EST [facility] nRBC 0.0 <=0.0 per 100 WBCs LAB HEMATOLOGY METHOD 04/11/2025 4:09 AM EST [facility] Blood Venous blood specimen / Unknown Venipuncture / Unknown 04/11/2025 3:51 AM EST 04/11/2025 4:00 AM EST Everett Beyer DO LAB BLOOD ORDERABLES Final Re sult [facility] [address] [place] [address] * XR Chest 1 View (04/11/2025 3:01 AM EST) Anatomical Region Laterality Modality Chest Digital Radiogra phy Impressions 04/11/2025 10:02 AM EST No significant interval change. CRITICAL RESULT: No. COMMUNICATION: Per this written report. Drafted by Eric Tellez MD on 04/11/2025 10:01 AM Final report signed by Eric Tellez MD on 04/11/2025 10:02 AM Narrative 04/11/2025 10:02 AM EST CLINICAL INDICATION: PostOp Esophagectomy TECHNIQUE: Single AP view of chest. COMPARISON: One day prior FINDINGS: Cardiomediastinal contours are unchanged. No pneumothorax. Trace pleural effusions similar to prior. Bibasal atelectatic changes, unchanged. No new lung consolidation or airspace disease. Procedure Note Eric Tellez MD - 04/11/2025 CLINICAL INDICATION: PostOp Esophagectomy TECHNIQUE: Single AP view of chest. COMPARISON: One day prior FINDINGS: Cardiomediastinal contours are unchanged. No pneumothorax. Trace pleuraleffusions similar to prior. Bibasal atelectatic changes, unchanged. No newlung consolidation or airspace disease. IMPRESSION: No significant interval change. CRITICAL RESULT: No. COMMUNICATION: Per this written report. Drafted by Eric Tellez MD on 04/11/2025 10:01 AM Final report signed by Eric Tellez MD on 04/11/2025 10:02 AM us Everett Beyer DO IMG XR PROCEDURES Final Resul t * (ABNORMAL) POCT glucose meter (04/10/2025 11:04 PM EST) [facility] POCT Glucose 117(H) 74 - 99 mg/dL 04/10/2025 11:06 PM EST [facility] Comment:Accuracy of a glucos e result obtained from a capillary whole blood specimen relies upon adequate, non-compromised capillary blood flow. If the capillary glucose result is not consistent with the patient's clinical signs and symptoms, glucose testing should be repeated with either an arterial or venous sample on the glucometer or sent to the main labortory for testing. Comment 04/10/2025 11:06 PM EST [facility] Laboratory Coordinator ID Amy, Jose 04/10/2025 11:06 PM EST [facility] Device ID [id number] 04/10/2025 11:06 PM EST [facility] Specimen Type POC Capillary 04/10/2025 11:06 PM EST [facility] Blood Capillary blood specimen / Unknown 04/10/2025 11:04 PM EST 04/10/2025 11:06 PM EST us Everett Beyer DO LAB POINT OF CARE TE ST DOCKED DEVICE UNSOLICITED RESULTS Final Result Performing Organization Address City/State/[facility] Co de Phone Number [facility] [address] [place] [address] * (ABNORMAL) POCT glucose meter (04/10/2025 5:55 PM EST) [facility] POCT Glucose 137(H) 74 - 99 mg/dL 04/10/2025 5:57 PM EST [facility] Comment:Accuracy of a glucos e result obtained from a capillary whole blood specimen relies upon adequate, non-compromised capillary blood flow. If the capillary glucose result is not consistent with the patient's clinical signs and symptoms, glucose testing should be repeated with either an arterial or venous sample on the glucometer or sent to the main labortory for testing. Comment 04/10/2025 5:57 PM EST [facility] Laboratory Coordinator ID Laura Whitten 04/10/2025 5:57 PM EST [facility] Device ID [id number] 04/10/2025 5:57 PM EST [facility] Specimen Type POC Capillary 04/10/2025 5:57 PM EST [facility] Blood Capillary blood specimen / Unknown 04/10/2025 5:55 PM EST 04/10/2025 5:57 PM EST us Everett Beyer DO LAB POINT OF CARE TE ST DOCKED DEVICE UNSOLICITED RESULTS Final Result Performing Organization Address City/[facility] Co de Phone Number [facility] [address] [place] [address] * (ABNORMAL) POCT glucose meter (04/10/2025 12:24 PM EST) POCT Glucose 128(H) 74 - 99 mg/dL 04/10/2025 12:26 PM EST [facility] Comment:Accuracy of a glucos e result obtained from a capillary whole blood specimen relies upon adequate, non-compromised capillary blood flow. If the capillary glucose result is not consistent with the patient's clinical signs and symptoms, glucose testing should be repeated with either an arterial or venous sample on the glucometer or sent to the main labortory for testing. Comment 04/10/2025 12:26 PM [facility] Laboratory Coordinator ID Laura Whitten 04/10/2025 12:26 PM EST [facility] Device ID [id number] 04/10/2025 12:26 PM EST [facility] Specimen Type POC Capillary 04/10/2025 12:26 PM EST [facility] Blood Capillary blood specimen / Unknown 04/10/2025 12:24 PM EST 04/10/2025 12:26 PM EST us Everett Beyer DO LAB POINT OF CARE TE ST DOCKED DEVICE UNSOLICITED RESULTS Final Result Performing Organization Address City/[facility] Co de Phone Number [facility] [address] [place] [address] * (ABNORMAL) POCT glucose meter (04/10/2025 6:01 AM EST) POCT Glucose 160(H) 74 - 99 mg/dL 04/10/2025 6:02 AM EST [facility] Comment:Accuracy of a glucos e result obtained from a capillary whole blood specimen relies upon adequate, non-compromised capillary blood flow. If the capillary glucose result is not consistent with the patient's clinical signs and symptoms, glucose testing should be repeated with either an arterial or venous sample on the glucometer or sent to the main labortory for testing. Comment 04/10/2025 6:02 AM EST [facility] Laboratory Coordinator ID Ceci Santo 04/10/2025 6:02 AM EST [facility] Device ID [id number] 04/10/2025 6:02 AM EST [facility] Specimen Type POC Capillary 04/10/2025 6:02 AM EST [facility] Blood Capillary blood specimen / Unknown 04/10/2025 6:01 AM EST 04/10/2025 6:02 AM EST Everett Beyer DO LAB POINT OF CARE TE ST DOCKED DEVICE UNSOLICITED RESULTS Final Result Performing Organization Address City/State/[facility] Phone Number [facility] [address] [place] [address] * XR Chest 1 View (04/10/2025 2:17 AM EST) Anatomical Region Laterality Modality Chest Digital Radiogra phy Impressions 04/10/2025 9:16 AM EST Stable exam. CRITICAL RESULT: No. COMMUNICATION: Per this written report. By electronically signing this report, I, the attending physician, attest that I have personally reviewed the images/data for the above examination(s) and agree with the final edited report. Drafted by Marlo Delatorre MD on 04/10/2025 8:40 AM Final report signed by Song Ayon MD on 04/10/2025 9:16 AM Narrative 04/10/2025 9:16 AM EST CLINICAL INDICATION: PostOp Esophagectomy TECHNIQUE: Single AP view of chest. COMPARISON: Chest Radiograph 04/09/2025. FINDINGS: Stable support hardware. No discernible contours and cardiac silhouette are stable. Stable left greater than right bibasilar opacities. Probable small effusions. No significant pneumothorax. Procedure Note Song Ayon MD - 04/10/2025 CLINICAL INDICATION: PostOp Esophagectomy TECHNIQUE: Single AP view of chest. COMPARISON: Chest Radiograph 04/09/2025. FINDINGS: Stable support hardware. No discernible contours and cardiac silhouetteare stable. Stable left greater than right bibasilar opacities. Probablesmall effusions. No significant pneumothorax. IMPRESSION: Stable exam. CRITICAL RESULT: No. COMMUNICATION: Per this written report. By electronically signing this report, I, the attending physician, attestthat I have personally reviewed the images/data for the aboveexamination(s) and agree with the final edited report. Drafted by Marlo Delatorre MD on 04/10/2025 8:40 AM Final report signed by Song Ayon MD on 04/10/2025 9:16 AM us Everett Beyer DO IMG XR PROCEDURES Final Resul t * POCT glucose meter (04/10/2025 12:43 AM EST) [facility] POCT Glucose 99 74 - 99 mg/dL 04/10/2025 12:45 AM EST [facility] Comment:Accuracy of a glucos e result obtained from a capillary whole blood specimen relies upon adequate, non-compromised capillary blood flow. If the capillary glucose result is not consistent with the patient's clinical signs and symptoms, glucose testing should be repeated with either an arterial or venous sample on the glucometer or sent to the main labortory for testing. Comment 04/10/2025 12:45 AM EST [facility] Laboratory Coordinator ID Niesha Huerta 04/10/2025 12:45 AM EST [facility] Device ID [id number] 04/10/2025 12:45 AM EST [facility] Specimen Type POC Venous 04/10/2025 12:45 AM EST [facility] Blood Venous blood specimen / Unknown 04/10/2025 12:43 AM EST 04/10/2025 12:45 AM EST us Everett Beyer DO LAB POINT OF CARE TE ST DOCKED DEVICE UNSOLICITED RESULTS Final Result [facility] [address] [place] [address] * Magnesium, Plasma (04/10/2025 12:43 AM EST) [facility] Magnesium, Plasma 2.0 1.9 - 2.4 mg/dL 04/10/2025 1:23 AM EST [facility] Blood Venous blood specimen / Unknown Venipuncture / Unknown 04/10/2025 12:43 AM EST 04/10/2025 12:52 AM EST us Everett Beyer DO LAB BLOOD ORDERABLES Final Re sult [facility] [address] [place] [address] * (ABNORMAL) Renal Function Panel, Plasma (04/10/2025 12:43 AM EST) Glucose, Plasma 104(H) 74 - 99 mg/dL 04/10/2025 1:23 AM EST [facility] BUN, Plasma 10 8 - 23 mg/dL 04/10/2025 1:23 AM EST [facility] Creatinine, Plasma 0.60(L) 0.70 - 1.20 mg/dL 04/10/2025 1:23 AM EST [facility] BUN/Creatinine Ratio 17 04/10/2025 1:23 AM EST [facility] Sodium, Plasma 139 136 - 145 mmol/L 04/10/2025 1:23 AM EST [facility] Potassium, Plasma 3.6 3.6 - 4.9 mmol/L 04/10/2025 1:23 AM EST [facility] Chloride, Plasma 104 97 - 107 mmol/L 04/10/2025 1:23 AM EST [facility] CO2, Plasma 25 22 - 29 mmol/L 04/10/2025 1:23 AM EST [facility] Anion Gap 10 6 - 16 mmol/L 04/10/2025 1:23 AM EST [facility] Total Calcium, Plasma 8.2(L) 8.9 - 10.2 mg/dL 04/10/2025 1:23 AM EST [facility] Phosphorus, Plasma 3.6 2.5 - 4.5 mg/dL 04/10/2025 1:23 AM EST [facility] Albumin, Plasma 3.1(L) 3.5 - 5.2 g/dL 04/10/2025 1:23 AM EST [facility] eGFRcr 103.2 mL/min/1.7 3m*2 04/10/2025 1:23 AM EST [facility] Comment:Reported eGFRcr in m L/min/1.73m2 is based the CKD-EPI 2020 equation that does not use a race coefficient. Blood Venous blood specimen / Unknown Venipuncture / Unknown 04/10/2025 12:43 AM EST 04/10/2025 12:52 AM EST Everett Beyer DO LAB BLOOD ORDERABLES Final Re sult [facility] [address] [place] [address] * (ABNORMAL) CBC W/O Differential (04/10/2025 12:43 AM EST) WBC Count 7.94 3.70 - 10.30 10*3/uL LAB HEMATOLOGY METHOD 04/10/2025 1:10 AM EST [facility] RBC Count 3.79(L) 4.60 - 6.10 10*6/uL LAB HEMATOLOGY METHOD 04/10/2025 1:10 AM EST [facility] HGB 12.7(L) 13.7 - 17.5 g/dL LAB HEMATOLOGY METHOD 04/10/2025 1:10 AM EST [facility] HCT 36.5(L) 40.0 - 51.0 % LAB HEMATOLOGY METHOD 04/10/2025 1:10 AM EST [facility] Platelet Count 129(L) 155 - 369 10*3/uL LAB HEMATOLOGY METHOD 04/10/2025 1:10 AM EST [facility] MCV 96 79 - 98 fL LAB HEMATOLOGY METHOD 04/10/2025 1:10 AM EST [facility] Comment:Results inconsistent with previous lab findings. MCH 33.5(H) 26.0 - 32.0 pg LAB HEMATOLOGY METHOD 04/10/2025 1:10 AM EST [facility] MCHC 34.8 30.7 - 35.5 g/dL LAB HEMATOLOGY METHOD 04/10/2025 1:10 AM EST [facility] RDW 12.8 11.5 - 14.5 % LAB HEMATOLOGY METHOD 04/10/2025 1:10 AM EST [facility] MPV 10.7 8.8 - 12.5 fL LAB HEMATOLOGY METHOD 04/10/2025 1:10 AM EST [facility] nRBC 0.0 <=0.0 per 100 WBCs LAB HEMATOLOGY METHOD 04/10/2025 1:10 AM EST [facility] Blood Venous blood specimen / Unknown Venipuncture / Unknown 04/10/2025 12:43 AM EST 04/10/2025 12:54 AM EST us Everett Beyer DO LAB BLOOD ORDERABLES Final Re sult [facility] [address] [place] [address] * XR Chest 1 View (04/09/2025 3:34 PM EST) Anatomical Region Laterality Modality Chest Digital Radiogra phy Impressions 04/09/2025 4:29 PM EST Interval removal of the right chest tube. No enlarging pneumothorax CRITICAL RESULT: No COMMUNICATION: Per this written report. Drafted by Johnny Mcduffie MD on 04/09/2025 4:28 PM Final report signed by Johnny Mcduffie MD on 04/09/2025 4:29 PM Narrative 04/09/2025 4:29 PM EST CLINICAL INDICATION: Post Chest Tube pull- 4hr CXR TECHNIQUE: XR CHEST 1 VIEW COMPARISON: Same day radiograph at 1:40 AM FINDINGS: The cardiomediastinal silhouette is stable. Interval removal of the right chest tube. Decreased left lower lobe opacity. No enlarging effusion. Possible trace right apical pneumothorax, unchanged. Procedure Note Johnny Mcduffie MD - 04/09/2025 CLINICAL INDICATION: Post Chest Tube pull- 4hr CXR TECHNIQUE: XR CHEST 1 VIEW COMPARISON: Same day radiograph at 1:40 AM FINDINGS: The cardiomediastinal silhouette is stable. Interval removal of the rightchest tube. Decreased left lower lobe opacity. No enlarging effusion.Possible trace right apical pneumothorax, unchanged. IMPRESSION: Interval removal of the right chest tube. No enlarging pneumothorax CRITICAL RESULT: No COMMUNICATION: Per this written report. Drafted by Johnny Mcduffie MD on 04/09/2025 4:28 PM Final report signed by Johnny Mcduffie MD on 04/09/2025 4:29 PM [employer] IMG XR PROCEDURES Final Res ult * (ABNORMAL) POCT glucose meter (04/09/2025 8:56 AM EST) POCT Glucose 117(H) 74 - 99 mg/dL 04/09/2025 8:58 AM EST [facility] Comment:Accuracy of a glucos e result obtained from a capillary whole blood specimen relies upon adequate, non-compromised capillary blood flow. If the capillary glucose result is not consistent with the patient's clinical signs and symptoms, glucose testing should be repeated with either an arterial or venous sample on the glucometer or sent to the main labortory for testing. Comment 04/09/2025 8:58 AM EST [facility] Laboratory Coordinator ID Hermelinda Muniz 04/09/2025 8:58 AM EST [facility] Device ID [id number] 04/09/2025 8:58 AM EST [facility] Specimen Type POC Capillary 04/09/2025 8:58 AM EST [facility] Blood Capillary blood specimen / Unknown 04/09/2025 8:56 AM EST 04/09/2025 8:58 AM EST us Everett Beyer DO LAB POINT OF CARE TE ST DOCKED DEVICE UNSOLICITED RESULTS Final Result Performing Organization Address City/[facility] Co de Phone Number [facility] [address] [place], [place] [id number] * Magnesium, Plasma (04/09/2025 5:01 AM EST) Magnesium, Plasma 1.9 1.9 - 2.4 mg/dL 04/09/2025 5:46 AM EST [facility] Blood Venous blood specimen / Unknown Venipuncture / Unknown 04/09/2025 5:01 AM EST 04/09/2025 5:18 AM EST us Everett Beyer DO LAB BLOOD ORDERABLES Final Re sult [facility] [address] [place] [address] * (ABNORMAL) Renal Function Panel, Plasma (04/09/2025 5:01 AM EST) Glucose, Plasma 86 74 - 99 mg/dL 04/09/2025 5:46 AM EST [facility] BUN, Plasma 7(L) 8 - 23 mg/dL 04/09/2025 5:46 AM EST [facility] Creatinine, Plasma 0.58(L) 0.70 - 1.20 mg/dL 04/09/2025 5:46 AM EST [facility] BUN/Creatinine Ratio 12 04/09/2025 5:46 AM EST [facility] Sodium, Plasma 135(L) 136 - 145 mmol/L 04/09/2025 5:46 AM EST [facility] Potassium, Plasma 3.9 3.6 - 4.9 mmol/L 04/09/2025 5:46 AM EST [facility] Chloride, Plasma 101 97 - 107 mmol/L 04/09/2025 5:46 AM EST [facility] CO2, Plasma 24 22 - 29 mmol/L 04/09/2025 5:46 AM EST [facility] Anion Gap 10 6 - 16 mmol/L 04/09/2025 5:46 AM EST [facility] Total Calcium, Plasma 8.3(L) 8.9 - 10.2 mg/dL 04/09/2025 5:46 AM EST [facility] Phosphorus, Plasma 3.4 2.5 - 4.5 mg/dL 04/09/2025 5:46 AM EST [facility] Albumin, Plasma 3.1(L) 3.5 - 5.2 g/dL 04/09/2025 5:46 AM EST [facility] eGFRcr 104.3 mL/min/1.7 3m*2 04/09/2025 5:46 AM EST [facility] Comment:Reported eGFRcr in m L/min/1.73m2 is based the CKD-EPI 2020 equation that does not use a race coefficient. Blood Venous blood specimen / Unknown Venipuncture / Unknown 04/09/2025 5:01 AM EST 04/09/2025 5:18 AM EST us Everett Beyer DO LAB BLOOD ORDERABLES Final Re sult [facility] [address] [place] [address] * (ABNORMAL) CBC W/O Differential (04/09/2025 5:01 AM EST) WBC Count 6.72 3.70 - 10.30 10*3/uL LAB HEMATOLOGY METHOD 04/09/2025 5:48 AM EST [facility] RBC Count 3.68(L) 4.60 - 6.10 10*6/uL LAB HEMATOLOGY METHOD 04/09/2025 5:48 AM EST [facility] HGB 12.1(L) 13.7 - 17.5 g/dL LAB HEMATOLOGY METHOD 04/09/2025 5:48 AM EST [facility] HCT 39.4(L) 40.0 - 51.0 % LAB HEMATOLOGY METHOD 04/09/2025 5:48 AM EST [facility] Platelet Count 117(L) 155 - 369 10*3/uL LAB HEMATOLOGY METHOD 04/09/2025 5:48 AM EST [facility] MCV 107(H) 79 - 98 fL LAB HEMATOLOGY METHOD 04/09/2025 5:48 AM EST [facility] Comment:Results inconsistent with previous lab findings. MCH 32.9(H) 26.0 - 32.0 pg LAB HEMATOLOGY METHOD 04/09/2025 5:48 AM EST [facility] MCHC 30.7 30.7 - 35.5 g/dL LAB HEMATOLOGY METHOD 04/09/2025 5:48 AM EST [facility] RDW 12.9 11.5 - 14.5 % LAB HEMATOLOGY METHOD 04/09/2025 5:48 AM EST [facility] MPV 10.7 8.8 - 12.5 fL LAB HEMATOLOGY METHOD 04/09/2025 5:48 AM EST [facility] nRBC 0.0 <=0.0 per 100 WBCs LAB HEMATOLOGY METHOD 04/09/2025 5:48 AM EST [facility] Blood Venous blood specimen / Unknown Venipuncture / Unknown 04/09/2025 5:01 AM EST 04/09/2025 5:17 AM EST us Everett Beyer DO LAB BLOOD ORDERABLES Final Re sult [facility] [address] [place] [address] * XR Chest 1 View (04/09/2025 1:50 AM EST) Anatomical Region Laterality Modality Chest Digital Radiogra phy Impressions 04/09/2025 6:02 AM EST Trace right pneumothorax. Unchanged left effusion and bibasilar atelectasis. CRITICAL RESULT: No. COMMUNICATION: Per this written report. Drafted by Rayna Santo MD on 04/09/2025 6:00 AM Final report signed by Rayna Santo MD on 04/09/2025 6:02 AM Narrative 04/09/2025 6:02 AM EST CLINICAL INDICATION: PostOp Esophagectomy TECHNIQUE: XR CHEST 1 VIEW COMPARISON: 04/08/2025 FINDINGS: Support hardware projects in unchanged position. Left greater than right basilar atelectasis. No new consolidation. Small left pleural effusion. Trace right pneumothorax. Stable cardiac silhouette. Procedure Note Rayna Santo MD - 04/09/2025 CLINICAL INDICATION: PostOp Esophagectomy TECHNIQUE: XR CHEST 1 VIEW COMPARISON: 04/08/2025 FINDINGS: Support hardware projects in unchanged position. Left greater than rightbasilar atelectasis. No new consolidation. Small left pleural effusion.Trace right pneumothorax. Stable cardiac silhouette. IMPRESSION: Trace right pneumothorax. Unchanged left effusion and bibasilar atelectasis. CRITICAL RESULT: No. COMMUNICATION: Per this written report. Drafted by Rayna Santo MD on 04/09/2025 6:00 AM Final report signed by Rayna Santo MD on 04/09/2025 6:02 AM us Everett Beyer DO IMG XR PROCEDURES Final Resul t * (ABNORMAL) POCT glucose meter (04/09/2025 12:25 AM EST) POCT Glucose 109(H) 74 - 99 mg/dL 04/09/2025 12:26 AM EST [facility] Comment:Accuracy of a glucos e result obtained from a capillary whole blood specimen relies upon adequate, non-compromised capillary blood flow. If the capillary glucose result is not consistent with the patient's clinical signs and symptoms, glucose testing should be repeated with either an arterial or venous sample on the glucometer or sent to the main labortory for testing. Comment 04/09/2025 12:26 AM EST [facility] Laboratory Coordinator ID Niesha Huerta 04/09/2025 12:26 AM EST [facility] Device ID [id number] 04/09/2025 12:26 AM EST [facility] Specimen Type POC Capillary 04/09/2025 12:26 AM EST [facility] Blood Capillary blood specimen / Unknown 04/09/2025 12:25 AM EST 04/09/2025 12:26 AM EST Everett Beyer DO LAB POINT OF CARE TE ST DOCKED DEVICE UNSOLICITED RESULTS Final Result Performing Organization Address City/State/[facility] Co de Phone Number [facility] [address] [place] [address] * (ABNORMAL) POCT glucose meter (04/08/2025 3:17 PM EST) [facility] POCT Glucose 181(H) 74 - 99 mg/dL 04/08/2025 3:18 PM EST [facility] Comment:Accuracy of a glucos e result obtained from a capillary whole blood specimen relies upon adequate, non-compromised capillary blood flow. If the capillary glucose result is not consistent with the patient's clinical signs and symptoms, glucose testing should be repeated with either an arterial or venous sample on the glucometer or sent to the main labortory for testing. Comment 04/08/2025 3:18 PM EST [facility] Laboratory Coordinator ID Hermelinda Muniz 04/08/2025 3:18 PM EST [facility] Device ID [id number] 04/08/2025 3:18 PM EST [facility] Specimen Type POC Capillary 04/08/2025 3:18 PM EST [facility] Blood Capillary blood specimen / Unknown 04/08/2025 3:17 PM EST 04/08/2025 3:18 PM EST us Everett Beyer DO LAB POINT OF CARE TE ST DOCKED DEVICE UNSOLICITED RESULTS Final Result Performing Organization Address [facility] de Phone Number [facility] [address] [place] [address] * (ABNORMAL) POCT glucose meter (04/08/2025 6:03 AM EST) POCT Glucose 105(H) 74 - 99 mg/dL 04/08/2025 6:04 AM EST [facility] Comment:Accuracy of a glucos e result obtained from a capillary whole blood specimen relies upon adequate, non-compromised capillary blood flow. If the capillary glucose result is not consistent with the patient's clinical signs and symptoms, glucose testing should be repeated with either an arterial or venous sample on the glucometer or sent to the main labortory for testing. Comment 04/08/2025 6:04 AM EST [facility] Laboratory Coordinator ID Niesha Huerta 04/08/2025 6:04 AM EST [facility] Device ID [id number] 04/08/2025 6:04 AM EST [facility] Specimen Type POC Capillary 04/08/2025 6:04 AM EST [facility] Blood Capillary blood specimen / Unknown 04/08/2025 6:03 AM EST 04/08/2025 6:04 AM EST us Everett Beyer DO LAB POINT OF CARE TE ST DOCKED DEVICE UNSOLICITED RESULTS Final Result Performing Organization Address [facility] Phone Number [facility] [address] [place] [address] * XR Chest 1 View (04/08/2025 3:14 AM EST) Anatomical Region Laterality Modality Chest Digital Radiogra phy Impressions 04/08/2025 9:05 AM EST Stable exam CRITICAL RESULT: No. COMMUNICATION: Per this written report. By electronically signing this report, I, the attending physician, attest that I have personally reviewed the images/data for the above examination(s) and agree with the final edited report. Drafted by Marlo Delatorre MD on 04/08/2025 8:15 AM Final report signed by Song Ayon MD on 04/08/2025 9:05 AM Narrative 04/08/2025 9:05 AM EST CLINICAL INDICATION: PostOp Esophagectomy TECHNIQUE: Single AP view of chest. COMPARISON: Chest radiograph 04/07/2025. FINDINGS: Stable support hardware. The mediastinal contours and cardiac silhouette are stable. Unchanged bibasilar atelectasis. Mild pulmonary vascular congestion is similar to prior. Stable small left pleural effusion. Trace residual pneumomediastinum, likely postsurgical. No right pleural effusion or significant pneumothorax. Procedure Note Song Ayon MD - 04/08/2025 CLINICAL INDICATION: PostOp Esophagectomy TECHNIQUE: Single AP view of chest. COMPARISON: Chest radiograph 04/07/2025. FINDINGS: Stable support hardware. The mediastinal contours and cardiac silhouetteare stable. Unchanged bibasilar atelectasis. Mild pulmonary vascularcongestion is similar to prior. Stable small left pleural effusion. Traceresidual pneumomediastinum, likely postsurgical. No right pleural effusionor significant pneumothorax. IMPRESSION: Stable exam CRITICAL RESULT: No. COMMUNICATION: Per this written report. By electronically signing this report, I, the attending physician, attestthat I have personally reviewed the images/data for the aboveexamination(s) and agree with the final edited report. Drafted by Marlo Delatorre MD on 04/08/2025 8:15 AM Final report signed by Song Ayon MD on 04/08/2025 9:05 AM us Everett Beyer DO IMG XR PROCEDURES Final Resul t * Magnesium, Plasma (04/08/2025 1:58 AM EST) Magnesium, Plasma 1.9 1.9 - 2.4 mg/dL 04/08/2025 2:32 AM EST [facility] Blood Venous blood specimen / Unknown Venipuncture / Unknown 04/08/2025 1:58 AM EST 04/08/2025 2:03 AM EST us Everett Beyer DO LAB BLOOD ORDERABLES Final Re sult [facility] [address] [place] [address] * (ABNORMAL) Renal Function Panel, Plasma (04/08/2025 1:58 AM EST) Glucose, Plasma 105(H) 74 - 99 mg/dL 04/08/2025 2:32 AM EST [facility] BUN, Plasma 9 8 - 23 mg/dL 04/08/2025 2:32 AM EST [facility] Creatinine, Plasma 0.62(L) 0.70 - 1.20 mg/dL 04/08/2025 2:32 AM EST [facility] BUN/Creatinine Ratio 15 04/08/2025 2:32 AM EST [facility] Sodium, Plasma 139 136 - 145 mmol/L 04/08/2025 2:32 AM EST [facility] Potassium, Plasma 3.9 3.6 - 4.9 mmol/L 04/08/2025 2:32 AM EST [facility] Chloride, Plasma 105 97 - 107 mmol/L 04/08/2025 2:32 AM EST [facility] CO2, Plasma 26 22 - 29 mmol/L 04/08/2025 2:32 AM EST [facility] Anion Gap 8 6 - 16 mmol/L 04/08/2025 2:32 AM EST [facility] Total Calcium, Plasma 8.4(L) 8.9 - 10.2 mg/dL 04/08/2025 2:32 AM EST [facility] Phosphorus, Plasma 3.0 2.5 - 4.5 mg/dL 04/08/2025 2:32 AM EST [facility] Albumin, Plasma 3.3(L) 3.5 - 5.2 g/dL 04/08/2025 2:32 AM EST [facility] eGFRcr 102.2 mL/min/1.7 3m*2 04/08/2025 2:32 AM EST [facility] Comment:Reported eGFRcr in m L/min/1.73m2 is based the CKD-EPI 2020 equation that does not use a race coefficient. Blood Venous blood specimen / Unknown Venipuncture / Unknown 04/08/2025 1:58 AM EST 04/08/2025 2:03 AM EST us Everett Beyer DO LAB BLOOD ORDERABLES Final Re sult [facility] [address] [place] [address] * (ABNORMAL) CBC W/O Differential (04/08/2025 1:58 AM EST) WBC Count 7.57 3.70 - 10.30 10*3/uL LAB HEMATOLOGY METHOD 04/08/2025 2:13 AM EST [facility] RBC Count 3.72(L) 4.60 - 6.10 10*6/uL LAB HEMATOLOGY METHOD 04/08/2025 2:13 AM EST [facility] HGB 12.5(L) 13.7 - 17.5 g/dL LAB HEMATOLOGY METHOD 04/08/2025 2:13 AM EST [facility] HCT 36.9(L) 40.0 - 51.0 % LAB HEMATOLOGY METHOD 04/08/2025 2:13 AM EST [facility] Platelet Count 102(L) 155 - 369 10*3/uL LAB HEMATOLOGY METHOD 04/08/2025 2:13 AM EST [facility] MCV 99(H) 79 - 98 fL LAB HEMATOLOGY METHOD 04/08/2025 2:13 AM EST [facility] MCH 33.6(H) 26.0 - 32.0 pg LAB HEMATOLOGY METHOD 04/08/2025 2:13 AM EST [facility] MCHC 33.9 30.7 - 35.5 g/dL LAB HEMATOLOGY METHOD 04/08/2025 2:13 AM EST [facility] RDW 13.3 11.5 - 14.5 % LAB HEMATOLOGY METHOD 04/08/2025 2:13 AM EST [facility] MPV 10.7 8.8 - 12.5 fL LAB HEMATOLOGY METHOD 04/08/2025 2:13 AM EST [facility] nRBC 0.0 <=0.0 per 100 WBCs LAB HEMATOLOGY METHOD 04/08/2025 2:13 AM EST [facility] Blood Venous blood specimen / Unknown Venipuncture / Unknown 04/08/2025 1:58 AM EST 04/08/2025 2:03 AM EST us Everett Beyer DO LAB BLOOD ORDERABLES Final Re sult [facility] [address] [place] [address] * (ABNORMAL) POCT glucose meter (04/07/2025 11:38 PM EST) POCT Glucose 112(H) 74 - 99 mg/dL 04/07/2025 11:39 PM EST [facility] Comment:Accuracy of a glucos e result obtained from a capillary whole blood specimen relies upon adequate, non-compromised capillary blood flow. If the capillary glucose result is not consistent with the patient's clinical signs and symptoms, glucose testing should be repeated with either an arterial or venous sample on the glucometer or sent to the main labortory for testing. Comment 04/07/2025 11:39 PM EST [facility] Laboratory Coordinator ID Niesha Huerta 04/07/2025 11:39 PM EST [facility] Device ID [id number] 04/07/2025 11:39 PM EST [facility] Specimen Type POC Capillary 04/07/2025 11:39 PM EST [facility] Blood Capillary blood specimen / Unknown 04/07/2025 11:38 PM EST 04/07/2025 11:39 PM EST us Everett Beyer DO LAB POINT OF CARE TE ST DOCKED DEVICE UNSOLICITED RESULTS Final Result Performing Organization Address City/[facility]/ZIP Co de Phone Number [facility] [address] [place] [address] * (ABNORMAL) POCT glucose meter (04/07/2025 6:13 PM EST) POCT Glucose 111(H) 74 - 99 mg/dL 04/07/2025 6:17 PM EST [facility] Comment:Accuracy of a glucos e result obtained from a capillary whole blood specimen relies upon adequate, non-compromised capillary blood flow. If the capillary glucose result is not consistent with the patient's clinical signs and symptoms, glucose testing should be repeated with either an arterial or venous sample on the glucometer or sent to the main labortory for testing. Comment 04/07/2025 6:17 PM EST [facility] Laboratory Coordinator ID Mario Alberto Price 6:17 PM EST [facility] Device ID [id number] 04/07/2025 6:17 PM EST [facility] Specimen Type POC Capillary 04/07/2025 6:17 PM EST [facility] Blood Capillary blood specimen / Unknown 04/07/2025 6:13 PM EST 04/07/2025 6:17 PM EST us Everett Beyer DO LAB POINT OF CARE TE ST DOCKED DEVICE UNSOLICITED RESULTS Final Result Performing Organization Address City/[facility] Co de Phone Number [facility] [address] [place] [address] * POCT glucose meter (04/07/2025 1:19 PM EST) [facility] POCT Glucose 94 74 - 99 mg/dL 04/07/2025 4:53 PM EST [facility] Comment:Accuracy of a glucos e result obtained from a capillary whole blood specimen relies upon adequate, non-compromised capillary blood flow. If the capillary glucose result is not consistent with the patient's clinical signs and symptoms, glucose testing should be repeated with either an arterial or venous sample on the glucometer or sent to the main labortory for testing. Comment 04/07/2025 4:53 PM EST [facility] Laboratory Coordinator ID Mario Alberto Price 4:53 PM EST [facility] Device ID [id number] 04/07/2025 4:53 PM EST [facility] Specimen Type POC Arterial 04/07/2025 4:53 PM EST [facility] Blood Arterial blood specimen / Unknown 04/07/2025 1:19 PM EST 04/07/2025 4:53 PM EST us Everett Beyer DO LAB POINT OF CARE TE ST DOCKED DEVICE UNSOLICITED RESULTS Final Result Performing Organization Address City/[facility] Co de Phone Number [facility] [address] [place] [address] * [place] CRITICAL CARE, E/M 30-74 MINUTES (04/07/2025 9:38 AM EST) Narrative Ty Moctezuma APRN - 04/07/2025 9:38 AM EST Ty Moctezuma APRN 04/07/2025 9:53 AM Critical Care Performed by: Ty Moctezuma APRN Authorized by: Ty Moctezuma APRN Critical care provider statement: Critical care time (minutes): 33 Critical care time was exclusive of: Separately billable procedures and treating other patients and teaching time Critical care was time spent personally by me on the following activities: Discussions with primary provider, evaluation of patient's response to treatment, examination of patient, obtaining history from patient or surrogate, development of treatment plan with patient or surrogate, ordering and performing treatments and interventions, ordering and review of laboratory studies, ordering and review of radiographic studies and review of old charts us Ty Moctezuma APRN IN CLINIC/BEDSIDE ORDERABL ES Final Result * XR Chest 1 View (04/07/2025 2:39 AM EST) Anatomical Region Laterality Modality Chest Digital Radiogra phy Impressions 04/07/2025 9:00 AM EST Mild residual pneumomediastinum. Vascular congestion. CRITICAL RESULT: No. COMMUNICATION: Per this written report. Drafted by Ann Baker MD on 04/07/2025 9:00 AM Final report signed by Ann Baker MD on 04/07/2025 9:00 AM Narrative 04/07/2025 9:00 AM EST CLINICAL INDICATION: PostOp Esophagectomy TECHNIQUE: XR CHEST 1 VIEW COMPARISON: 04/06/2025 FINDINGS: Stable position of support hardware. Stable cardiac silhouette. Left basilar atelectasis and small left-sided pleural effusion, unchanged. Ongoing mild vascular congestion. No significant pleural effusions appreciated. Mild residual pneumomediastinum. No discrete pneumothorax is noted. Procedure Note Ann Baker MD - 04/07/2025 CLINICAL INDICATION: PostOp Esophagectomy TECHNIQUE: XR CHEST 1 VIEW COMPARISON: 04/06/2025 FINDINGS: Stable position of support hardware. Stable cardiac silhouette. Leftbasilar atelectasis and small left-sided pleural effusion, unchanged.Ongoing mild vascular congestion. No significant pleural effusionsappreciated. Mild residual pneumomediastinum. No discrete pneumothorax isnoted. IMPRESSION: Mild residual pneumomediastinum. Vascular congestion. CRITICAL RESULT: No. COMMUNICATION: Per this written report. Drafted by Ann Baker MD on 04/07/2025 9:00 AM Final report signed by Ann Baker MD on 04/07/2025 9:00 AM Everett Bang Beyer DO IMG XR PROCEDURES Final Resul t * (ABNORMAL) Blood gas panel, arterial (04/07/2025 1:18 AM EST) pH, Arterial 7.37 7.31 - 7.42 LAB HEMATOLOGY METHOD 04/07/2025 1:43 AM EST [facility] pCO2, Arterial 46(H) 32 - 45 mmHg LAB HEMATOLOGY METHOD 04/07/2025 1:43 AM [facility] pO2, Arterial 94 >70 mmHg LAB HEMATOLOGY METHOD 04/07/2025 1:43 AM [facility] SO2, Measured, Arterial 99(H) 94 - 98 % LAB HEMATOLOGY METHOD 04/07/2025 1:43 AM [facility] Base Excess, Arterial 1.0 -2.0 - 3.0 mmol/L LAB HEMATOLOGY METHOD 04/07/2025 1:43 AM [facility] Bicarbonate, Calculated, Arterial 27(H) 22 - 26 mmol/L LAB HEMATOLOGY METHOD 04/07/2025 1:43 AM [facility] Hematocrit, Whole Blood 34.9(L) 40.0 - 51.0 % LAB HEMATOLOGY METHOD 04/07/2025 1:43 AM [facility] Sodium, Whole Blood 139 136 - 145 mmol/L LAB HEMATOLOGY METHOD 04/07/2025 1:43 AM [facility] Potassium, Whole Blood 3.9 3.6 - 4.9 mmol/L LAB HEMATOLOGY METHOD 04/07/2025 1:43 AM [facility] Chloride, Whole Blood 106 97 - 107 mmol/L LAB HEMATOLOGY METHOD 04/07/2025 1:43 AM [facility] Glucose, Whole Blood 105(H) 74 - 99 mg/dL LAB HEMATOLOGY METHOD 04/07/2025 1:43 AM [facility] Ionized Calcium, Whole Blood 4.6 4.6 - 5.1 mg/dL LAB HEMATOLOGY METHOD 04/07/2025 1:43 AM EST [facility] Lactate, Arterial, Whole Blood 0.8 0.5 - 1.6 mmol/L LAB HEMATOLOGY METHOD 04/07/2025 1:43 AM EST [facility] Blood Arterial blood specimen / Unknown Arterial Puncture / Unknown 04/07/2025 1:18 AM EST 04/07/2025 1:39 AM EST us Amanda Stout APRN, [facility] LAB BLOOD ORDERABLES Elena l Result [facility] [address] [place] [address] * IONIZED CALCIUM, SYRINGE (04/07/2025 1:18 AM EST) Ionized Calcium, Whole Blood 4.6 4.6 - 5.1 mg/dL LAB HEMATOLOGY METHOD 04/07/2025 1:42 AM EST [facility] Blood Venous blood specimen / Unknown Venipuncture / Unknown 04/07/2025 1:18 AM EST 04/07/2025 1:39 AM EST us Amanda Stout APRN, RUPINDER LAB BLOOD ORDERABLES Elena l Result Performing Organization Address City/[facility]/ZIP Co de Phone Number [facility] [address] [place] [address] * (ABNORMAL) Magnesium, Plasma (04/07/2025 12:54 AM EST) Magnesium, Plasma 1.8(L) 1.9 - 2.4 mg/dL 04/07/2025 1:42 AM EST [facility] Blood Venous blood specimen / Unknown Venipuncture / Unknown 04/07/2025 12:54 AM EST 04/07/2025 1:13 AM EST us Everett Beyer DO LAB BLOOD ORDERABLES Final Re sult [facility] [address] [place] [address] * (ABNORMAL) Renal Function Panel, Plasma (04/07/2025 12:54 AM EST) Glucose, Plasma 107(H) 74 - 99 mg/dL 04/07/2025 1:42 AM [facility] BUN, Plasma 9 8 - 23 mg/dL 04/07/2025 1:42 AM [facility] Creatinine, Plasma 0.70 0.70 - 1.20 mg/dL 04/07/2025 1:42 AM [facility] BUN/Creatinine Ratio 13 04/07/2025 1:42 AM EST [facility] Sodium, Plasma 138 136 - 145 mmol/L 04/07/2025 1:42 AM [facility] Potassium, Plasma 4.0 3.6 - 4.9 mmol/L 04/07/2025 1:42 AM [facility] Chloride, Plasma 106 97 - 107 mmol/L 04/07/2025 1:42 AM [facility] CO2, Plasma 25 22 - 29 mmol/L 04/07/2025 1:42 AM [facility] Anion Gap 7 6 - 16 mmol/L 04/07/2025 1:42 AM [facility] Total Calcium, Plasma 8.0(L) 8.9 - 10.2 mg/dL 04/07/2025 1:42 AM [facility] Phosphorus, Plasma 4.0 2.5 - 4.5 mg/dL 04/07/2025 1:42 AM [facility] Albumin, Plasma 3.1(L) 3.5 - 5.2 g/dL 04/07/2025 1:42 AM [facility] eGFRcr 98.5 mL/min/1.7 3m*2 04/07/2025 1:42 AM [facility] Comment:Reported eGFRcr in m L/min/1.73m2 is based the CKD-EPI 2020 equation that does not use a race coefficient. Blood Venous blood specimen / Unknown Venipuncture / Unknown 04/07/2025 12:54 AM EST 04/07/2025 1:13 AM EST us Everett Beyer DO LAB BLOOD ORDERABLES Final Re sult [facility] [address] [place] [address] * (ABNORMAL) CBC W/O Differential (04/07/2025 12:54 AM EST) WBC Count 9.54 3.70 - 10.30 10*3/uL LAB HEMATOLOGY METHOD 04/07/2025 1:40 AM EST [facility] RBC Count 3.32(L) 4.60 - 6.10 10*6/uL LAB HEMATOLOGY METHOD 04/07/2025 1:40 AM EST [facility] HGB 10.9(L) 13.7 - 17.5 g/dL LAB HEMATOLOGY METHOD 04/07/2025 1:40 AM EST [facility] HCT 32.7(L) 40.0 - 51.0 % LAB HEMATOLOGY METHOD 04/07/2025 1:40 AM EST [facility] Platelet Count 124(L) 155 - 369 10*3/uL LAB HEMATOLOGY METHOD 04/07/2025 1:40 AM EST [facility] MCV 99(H) 79 - 98 fL LAB HEMATOLOGY METHOD 04/07/2025 1:40 AM EST [facility] MCH 32.8(H) 26.0 - 32.0 pg LAB HEMATOLOGY METHOD 04/07/2025 1:40 AM EST [facility] MCHC 33.3 30.7 - 35.5 g/dL LAB HEMATOLOGY METHOD 04/07/2025 1:40 AM EST [facility] RDW 13.2 11.5 - 14.5 % LAB HEMATOLOGY METHOD 04/07/2025 1:40 AM EST [facility] MPV 10.6 8.8 - 12.5 fL LAB HEMATOLOGY METHOD 04/07/2025 1:40 AM EST [facility] nRBC 0.0 <=0.0 per 100 WBCs LAB HEMATOLOGY METHOD 04/07/2025 1:40 AM EST [facility] Blood Venous blood specimen / Unknown Venipuncture / Unknown 04/07/2025 12:54 AM EST 04/07/2025 1:12 AM EST us Everett D Beyer DO LAB BLOOD ORDERABLES Final Re sult Performing Organization Address [facility] Co de Phone Number [facility] [address] [place] [address] * Ivory auris Surveillance by PCR (04/06/2025 3:55 PM EST) Ivory auris PCR Result Not Detected Not Detected 04/07/2025 12:43 PM EST [facility] Swab (Axilla and Groin) Non-blood Collection / Unknown 04/06/2025 3:55 PM EST 04/06/2025 4:04 PM EST Narrative [facility] - 04/07/2025 12:43 PM EST This PCR assay was developed and its performance characteristics determined by [facility] as appropriate for clinical purposes. This assay has not been cleared or approved by the FDA, but is performed in a CLIA regulated laboratory that is qualified to perform high-complexity testing. us Everett Beyer DO LAB MICROBIOLOGY - GENERAL OR DERABLES Final Result Performing Organization Address [facility] Co de Phone Number [facility] [address] [place] [address] * Multi Drug Resistance Test (04/06/2025 3:55 PM EST) Pathologist [facility] Culture No growth at day 1 04/08/2025 7:58 AM EST [facility] Swab (Nares and Catie Rectal) Non-blood Collection / Unknown 04/06/2025 3:55 PM EST 04/06/2025 4:04 PM EST Narrative [facility] - 04/08/2025 7:58 AM EST This test was developed and its performance characteristics determined by the [facility]. Although the media is FDA-approved, it is not FDA-approved for all specimen types submitted. The FDA has determined that such clearance or approval is not necessary. This test is used for surveillance purposes. It should not be regarded as investigational or for research. The [facility] is certified under the Clinical Laboratory Improvement Amendments of 1988 (CLIA-88) as qualified to perform high complexity clinical laboratory testing. us Everett Beyer DO LAB MICROBIOLOGY - GENERAL OR DERABLES Final Result [facility] [address] [place] [address] * XR Chest 1 View (04/06/2025 2:57 PM EST) Anatomical Region Laterality Modality Chest Digital Radiogra phy Impressions 04/06/2025 3:55 PM EST Support devices as above, including both enteric tube tip and side-port overlying the lower thoracic spine. Bibasilar atelectasis. CRITICAL RESULT: No. COMMUNICATION: Per this written report. By electronically signing this report, I, the attending physician, attest that I have personally reviewed the images/data for the above examination(s) and agree with the final edited report. Drafted by Ap Francis III, MD on 04/06/2025 3:17 PM Final report signed by Henrry Harrlel MD on 04/06/2025 3:55 PM Narrative 04/06/2025 3:55 PM EST CLINICAL INDICATION: Postprocedure TECHNIQUE: XR CHEST 1 VIEW COMPARISON: CT chest from [facility] dated 11/05/2024 FINDINGS: Patient is in RPO position. There is a right-sided chest tube and a mediastinal drain. Postsurgical changes consistent with esophagectomy. Enteric tube tip and side-port both overlie the lower thoracic spine. Spinal hardware noted over the cervical spine. Low lung volumes. No focal airspace opacity. Bibasilar atelectasis. No large pleural effusion or pneumothorax. Procedure Note Henrry Harrell MD - 04/06/2025 CLINICAL INDICATION: Postprocedure TECHNIQUE: XR CHEST 1 VIEW COMPARISON: CT chest from [facility] dated 11/05/2024 FINDINGS: Patient is in RPO position. There is a right-sided chest tube and amediastinal drain. Postsurgical changes consistent with esophagectomy.Enteric tube tip and side- port both overlie the lower thoracic spine.Spinal hardware noted over the cervical spine. Low lung volumes. No focal airspace opacity. Bibasilar atelectasis. Nolarge pleural effusion or pneumothorax. IMPRESSION: Support devices as above, including both enteric tube tip and side-portoverlying the lower thoracic spine. Bibasilar atelectasis. CRITICAL RESULT: No. COMMUNICATION: Per this written report. By electronically signing this report, I, the attending physician, attsallythat I have personally reviewed the images/data for the aboveexamination(s) and agree with the final edited report. Drafted by Ap Francis III, MD on 04/06/2025 3:17 PM Final report signed by Henrry Harrell MD on 04/06/2025 3:55 PM Everett Beyer DO IMG XR PROCEDURES Final Resul t * [place] CRITICAL CARE, E/M 30-74 MINUTES (04/06/2025 2:56 PM EST) Narrative Ty Moctezuma APRN - 04/06/2025 2:56 PM EST Ty Moctezuma APRN 04/06/2025 4:36 PM Critical Care Performed by: Ty Moctezuma APRN Authorized by: Ty Moctezuma APRN Critical care provider statement: Critical care time (minutes): 63 Critical care time was exclusive of: Separately billable procedures and treating other patients and teaching time Critical care was time spent personally by me on the following activities: Development of treatment plan with patient or surrogate, discussions with primary provider, evaluation of patient's response to treatment, examination of patient, obtaining history from patient or surrogate, ordering and performing treatments and interventions, ordering and review of laboratory studies, ordering and review of radiographic studies and review of old charts Ty Moctezuma APRN IN CLINIC/BEDSIDE ORDERABL ES Final Result * Magnesium (04/06/2025 2:09 PM EST) Magnesium, Plasma 1.9 1.9 - 2.4 mg/dL 04/06/2025 3:33 PM EST [facility] Blood Venous blood specimen / Unknown Venipuncture / Unknown 04/06/2025 2:09 PM EST 04/06/2025 3:03 PM EST us Everett Beyer DO LAB BLOOD ORDERABLES Final Re sult [facility] [address] [place] [address] * (ABNORMAL) Renal function panel (04/06/2025 2:09 PM EST) Glucose, Plasma 164(H) 74 - 99 mg/dL 04/06/2025 3:33 PM EST [facility] BUN, Plasma 9 8 - 23 mg/dL 04/06/2025 3:33 PM EST [facility] Creatinine, Plasma 0.71 0.70 - 1.20 mg/dL 04/06/2025 3:33 PM EST [facility] BUN/Creatinine Ratio 13 04/06/2025 3:33 PM EST [facility] Sodium, Plasma 138 136 - 145 mmol/L 04/06/2025 3:33 PM EST [facility] Potassium, Plasma 4.2 3.6 - 4.9 mmol/L 04/06/2025 3:33 PM EST [facility] Chloride, Plasma 105 97 - 107 mmol/L 04/06/2025 3:33 PM EST [facility] CO2, Plasma 24 22 - 29 mmol/L 04/06/2025 3:33 PM EST [facility] Anion Gap 9 6 - 16 mmol/L 04/06/2025 3:33 PM EST [facility] Total Calcium, Plasma 8.2(L) 8.9 - 10.2 mg/dL 04/06/2025 3:33 PM EST [facility] Phosphorus, Plasma 3.6 2.5 - 4.5 mg/dL 04/06/2025 3:33 PM EST [facility] Albumin, Plasma 3.7 3.5 - 5.2 g/dL 04/06/2025 3:33 PM EST [facility] eGFRcr 98.1 mL/min/1.7 3m*2 04/06/2025 3:33 PM EST [facility] Comment:Reported eGFRcr in m L/min/1.73m2 is based the CKD-EPI 2020 equation that does not use a race coefficient. Blood Venous blood specimen / Unknown Venipuncture / Unknown 04/06/2025 2:09 PM EST 04/06/2025 3:03 PM EST us Everett D Beyer DO LAB BLOOD ORDERABLES Final Re sult [facility] [address] [place] [address] * (ABNORMAL) CBC W/O Differential (04/06/2025 2:09 PM EST) WBC Count 8.57 3.70 - 10.30 10*3/uL LAB HEMATOLOGY METHOD 04/06/2025 3:19 PM EST [facility] RBC Count 3.89(L) 4.60 - 6.10 10*6/uL LAB HEMATOLOGY METHOD 04/06/2025 3:19 PM EST [facility] HGB 12.9(L) 13.7 - 17.5 g/dL LAB HEMATOLOGY METHOD 04/06/2025 3:19 PM EST [facility] HCT 38.5(L) 40.0 - 51.0 % LAB HEMATOLOGY METHOD 04/06/2025 3:19 PM EST [facility] Platelet Count 121(L) 155 - 369 10*3/uL LAB HEMATOLOGY METHOD 04/06/2025 3:19 PM EST [facility] MCV 99(H) 79 - 98 fL LAB HEMATOLOGY METHOD 04/06/2025 3:19 PM EST [facility] MCH 33.2(H) 26.0 - 32.0 pg LAB HEMATOLOGY METHOD 04/06/2025 3:19 PM EST [facility] MCHC 33.5 30.7 - 35.5 g/dL LAB HEMATOLOGY METHOD 04/06/2025 3:19 PM EST [facility] RDW 13.2 11.5 - 14.5 % LAB HEMATOLOGY METHOD 04/06/2025 3:19 PM EST [facility] MPV 10.7 8.8 - 12.5 fL LAB HEMATOLOGY METHOD 04/06/2025 3:19 PM EST [facility] nRBC 0.0 <=0.0 per 100 WBCs LAB HEMATOLOGY METHOD 04/06/2025 3:19 PM EST [facility] Blood Venous blood specimen / Unknown Venipuncture / Unknown 04/06/2025 2:09 PM EST 04/06/2025 3:06 PM EST us Everett Beyer DO LAB BLOOD ORDERABLES Final Re sult [facility] [address] [place] [address] * (ABNORMAL) Blood gas panel, arterial (04/06/2025 2:09 PM EST) pH, Arterial 7.32 7.31 - 7.42 LAB HEMATOLOGY METHOD 04/06/2025 3:03 PM EST [facility] pCO2, Arterial 48(H) 32 - 45 mmHg LAB HEMATOLOGY METHOD 04/06/2025 3:03 PM EST [facility] pO2, Arterial 121 >70 mmHg LAB HEMATOLOGY METHOD 04/06/2025 3:03 PM EST [facility] SO2, Measured, Arterial 99(H) 94 - 98 % LAB HEMATOLOGY METHOD 04/06/2025 3:03 PM EST [facility] Base Excess, Arterial -1.5 -2.0 - 3.0 mmol/L LAB HEMATOLOGY METHOD 04/06/2025 3:03 PM EST [facility] Bicarbonate, Calculated, Arterial 25 22 - 26 mmol/L LAB HEMATOLOGY METHOD 04/06/2025 3:03 PM EST [facility] Hematocrit, Whole Blood 40.4 40.0 - 51.0 % LAB HEMATOLOGY METHOD 04/06/2025 3:03 PM EST [facility] Sodium, Whole Blood 139 136 - 145 mmol/L LAB HEMATOLOGY METHOD 04/06/2025 3:03 PM EST [facility] Potassium, Whole Blood 4.0 3.6 - 4.9 mmol/L LAB HEMATOLOGY METHOD 04/06/2025 3:03 PM EST [facility] Chloride, Whole Blood 107 97 - 107 mmol/L LAB HEMATOLOGY METHOD 04/06/2025 3:03 PM EST [facility] Glucose, Whole Blood 158(H) 74 - 99 mg/dL LAB HEMATOLOGY METHOD 04/06/2025 3:03 PM EST [facility] Ionized Calcium, Whole Blood 4.5(L) 4.6 - 5.1 mg/dL LAB HEMATOLOGY METHOD 04/06/2025 3:03 PM EST [facility] Lactate, Arterial, Whole Blood 1.5 0.5 - 1.6 mmol/L LAB HEMATOLOGY METHOD 04/06/2025 3:03 PM EST [facility] Blood Arterial blood specimen / Unknown Arterial Puncture / Unknown 04/06/2025 2:09 PM EST 04/06/2025 3:02 PM EST us Everett Beyer DO LAB BLOOD ORDERABLES Final Re sult [facility] [address] [place] [address] * (ABNORMAL) Blood gas panel, arterial (04/06/2025 11:36 AM EST) pH, Arterial 7.27(L) 7.31 - 7.42 LAB HEMATOLOGY METHOD 04/06/2025 11:36 AM EST [facility] pCO2, Arterial 59(H) 32 - 45 mmHg LAB HEMATOLOGY METHOD 04/06/2025 11:36 AM EST [facility] pO2, Arterial 89 >70 mmHg LAB HEMATOLOGY METHOD 04/06/2025 11:36 AM EST [facility] SO2, Measured, Arterial 96 94 - 98 % LAB HEMATOLOGY METHOD 04/06/2025 11:36 AM EST [facility] Base Excess, Arterial -1.2 -2.0 - 3.0 mmol/L LAB HEMATOLOGY METHOD 04/06/2025 11:36 AM EST [facility] Bicarbonate, Calculated, Arterial 27(H) 22 - 26 mmol/L LAB HEMATOLOGY METHOD 04/06/2025 11:36 AM EST [facility] Hematocrit, Whole Blood 38.8(L) 40.0 - 51.0 % LAB HEMATOLOGY METHOD 04/06/2025 11:36 AM EST [facility] Sodium, Whole Blood 141 136 - 145 mmol/L LAB HEMATOLOGY METHOD 04/06/2025 11:36 AM EST [facility] Potassium, Whole Blood 4.2 3.6 - 4.9 mmol/L LAB HEMATOLOGY METHOD 04/06/2025 11:36 AM EST [facility] Chloride, Whole Blood 107 97 - 107 mmol/L LAB HEMATOLOGY METHOD 04/06/2025 11:36 AM [facility] Glucose, Whole Blood 155(H) 74 - 99 mg/dL LAB HEMATOLOGY METHOD 04/06/2025 11:36 AM EST [facility] Ionized Calcium, Whole Blood 4.5(L) 4.6 - 5.1 mg/dL LAB HEMATOLOGY METHOD 04/06/2025 11:36 AM EST [facility] Lactate, Arterial, Whole Blood 1.0 0.5 - 1.6 mmol/L LAB HEMATOLOGY METHOD 04/06/2025 11:36 AM EST [facility] Blood Arterial blood specimen / Unknown 04/06/2025 11:34 AM EST us Vivek Vitale MD LAB BLOOD ORDERABLES Final Resu lt [facility] [address] [place] [address] * Surgical Pathology Exam (04/06/2025 11:36 AM EST) Case Report Surgical Pathology Case: [id number] Authorizing Provider: Vivek Vitale MD Collected: 04/06/2025 1136 Ordering Location: [facility] Received: 04/06/2025 1422 Pathologist: Cindy Hammer MD Specimens: A) - Lymph Node (specify site):, Level 8 B) - Esophagus, esophagogastrectom y C) - Esophagus, esophageal anastomotic margin D) - Esophagus, gastric anastomotic margin E) - Esophagus, final gastric margin 10:32 AM EST [facility] Final Diagnosis A. LYMPH NODE, LEVEL 8, EXCISION: - ONE LYMPH NODE NEGATIVE FOR MALIGNANCY (0/1) B. ESOPHAGUS AND STOMACH, ESOPHAGOGASTRECTOM Y: - RESIDUAL INVASIVE ADENOCARCINOMA (ypT3, ypN3). SEE CHECKLIST. - MARGINS OF EXCISION NEGATIVE FOR TUMOR. - METASTATIC ADENOCARCINOMA IDENTIFIED IN 10 OF 11 LYMPH NODES (10/11). C. ESOPHAGEAL ANASTOMOTIC MARGIN, EXCISION: - NEGATIVE FOR MALIGNANCY. D. GASTRIC ANASTOMOTIC MARGIN, EXCISION: - NEGATIVE FOR MALIGNANCY. E. FINAL GASTRIC MARGIN, EXCISION: - NEGATIVE FOR MALIGNANCY. 10:32 AM EST [facility] at 1032 EST Synoptic Checklist ESOPHAGUS ESOPHAGUS - All Specimens 8th Edition - Protocol posted: 11/09/2021 SPECIMEN Procedure: Esophagogastrectom y TUMOR Tumor Site: Distal esophagus (low thoracic esophagus) Relationship of Tumor to Esophagogastric Junction: Tumor midpoint lies in the distal esophagus AND tumor involves the esophagogastric junction Distance of Tumor Center from Esophagogastric Junction: 1.3 cm Histologic Type: Adenocarcinoma Histologic Grade: GX, cannot be assessed: post therapy Tumor Size: Cannot be determined: microscopic foci of tumor Tumor Extent: Invades adventitia Treatment Effect: Present, with single cells or rare small groups of cancer cells (near complete response, score 1) Lymphovascular Invasion: Present MARGINS Margin Status for Invasive Carcinoma: All margins negative for invasive carcinoma Distance from Invasive Carcinoma to Closest Margin: Greater than 1 cm Margin Status for Dysplasia and Intestinal Metaplasia: All margins negative for dysplasia REGIONAL LYMPH NODES Regional Lymph Node Status: : Tumor present in regional lymph node(s) Number of Lymph Nodes with Tumor: 11 Number of Lymph Nodes Examined: 12 PATHOLOGIC STAGE CLASSIFICATION (pTNM, AJCC 8th Edition) Reporting of pT, pN, and (when applicable) pM categories is based on information available to the pathologist at the time the report is issued. As per the AJCC (Chapter 1, 8th Ed.) it is the managing physician's responsibility to establish the final pathologic stage based upon all pertinent information, including but potentially not limited to this pathology report. TNM Descriptors: y (post-treatment) pT Category: pT3 pN Category: pN3 ADDITIONAL FINDINGS Additional Findings: Intestinal metaplasia (Villavicencio's esophagus) Additional Findings: Low-grade glandular dysplasia 5 10:32 AM [facility] Clinical Information Malignant neoplasm of lower third of esophagus 5 10:32 AM [facility] Special and Immunohistochemical Stains IHC: A1-2 Velez Cytokeratin AE1 AE3: negative for tumor cells in lymph node All controls show appropriate reactivity. All immunohistochemist ry, in situ hybridization, and histochemical tests were developed by and are performed at the [facility], [address] [place] [address]. All tests reported here, except those addressing HER2 (breast) and PD-L1 expression as predictive markers, have not been cleared by or approved by the US Food and Drug Administration (FDA). The FDA has determined that such clearance or approval is not necessary. The laboratory is regulated under CLIA as qualified to perform high-complexity testing. The tests are used for clinical purposes. They should not be regarded as investigational or for research. This assay has not been validated on decalcified tissues. Results should be interpreted with caution given the likelihood of false negativity on decalcified specimens. 5 10:32 AM [facility] Gross Description A. LEVEL 8 Specimen received fresh and placed in formalin labeled l evel 8 is a 1.1 x 0.7 x 0.4 cm portion of orta-pink soft tissue. Specimen serially sectioned and submitted entirely in A1. Cold Time: 2h 47m Nancy Lin. ESOPHAGOGASTRECTOM Y Specimen received fresh and placed in formalin labeled e sophagogastrectomy is in esophagogastrectom y specimen that measures as follows: Esophagus-13.2 cm in length by 4.0 cm in diameter, stomach-10.5 x 8.5 x 3.4 cm. The adventitia around the esophagus is orta-red and ragged grossly consistent with cautery. The serosa on the stomach is orta-pink and smooth. The adventitia is inked black. The specimen is opened to reveal a 2.5 x 1.6 cm orta-pink, firm, ill-defined fibrotic area. This is located 2.6 cm from the esophageal margin and 3.3 cm from the gastric margin. It is 1.3 cm proximal to the GE junction from the center to the junction. The scarred area is serially sectioned to reveal a gross possible depth of invasion of 0.1 cm. The uninvolved esophageal mucosa is orta-pink and smooth. The uninvolved gastric mucosa is orta-red and glistening with prominent foldings. No other abnormalities are grossly identified. Multiple lymph nodes are identified ranging from 0.3-1.0 cm in greatest dimension. Gross photographs taken. Field Installation Technician sections are submitted as follows: B1-B3 esophageal resection margin, en face B4 gastric resection margin to closest approach to scar, perpendicular B5-B12 scarred areas submitted entirely to include adjacent esophageal and gastric mucosa B13 uninvolved esophageal mucosa B14 uninvolved gastric mucosa B15 3 possible lymph nodes, intact B16 2 possible lymph nodes, intact, B17 1 possible lymph node, bisected B18 1 possible lymph node, bisected B19 1 possible lymph node, bisected B20 1 possible lymph node, bisected B21 1 possible lymph node, bisected B22 1 possible lymph node, serially sectioned B23 1 possible lymph node, bisected Cold Time: 1h 59m Nancy A Dickey C. ESOPHAGEAL ANASTOMOTIC MARGIN Specimen received fresh and placed in formalin labeled e sophageal anastomotic margin is a 3.0 x 1.3 x 0.4 cm unoriented portion of orta-pink soft tissue with a 2.8 cm staple line. The staple line is removed and the specimen is submitted en face in C1. Cold Time: 1h 31m Nancy Dickey D. GASTRIC ANASTOMOTIC MARGIN Specimen received fresh and placed in formalin labeled g astric anastomotic margin is a 2.2 x 1.3 x 0.7 cm orta-pink and annular portion of soft tissue. The specimen is serially sectioned and submitted entirely in D1. Cold Time: 1h 31m Nnacy Dickey E. FINAL GASTRIC MARGIN Specimen received fresh and placed in formalin labeled f inal gastric margin is a 4.0 x 2.6 x 1.8 cm partial gastrectomy with an 8.6 cm staple line. Serosa is orta-pink and smooth. Opposing margin is opened. The specimen is opened to reveal a orta-pink and glistening mucosa with prominent foldings. No abnormalities are grossly identified. Field Installation Technician sections of margin to mucosa submitted in E1, en face. Cold Time: 1h 30m Nancy Dickey 10:32 AM [facility] Note: A resident was involved in the service. I attest I examined the relevant preparations for the specimens and confirmed the diagnosis or interpretation. 10:32 AM EST [facility] Tissue Structure of lymph node / Unknown 04/06/2025 11:36 AM EST 04/06/2025 2:22 PM EST Comment:Pre-op diagnosis: Malignant neoplasm of lower third of esophagus Tissue specimen (specimen) Esophageal structure / Unknown 04/06/2025 12:24 PM EST 04/06/2025 2:22 PM EST Comment:Pre-op diagnosis: Malignant neoplasm of lower third of esophagus Tissue specimen (specimen) Esophageal structure / Unknown 04/06/2025 12:52 PM EST 04/06/2025 2:22 PM EST Comment:Pre-op diagnosis: Malignant neoplasm of lower third of esophagus Tissue specimen (specimen) Esophageal structure / Unknown 04/06/2025 12:52 PM EST 04/06/2025 2:22 PM EST Comment:Pre-op diagnosis: Malignant neoplasm of lower third of esophagus Tissue specimen (specimen) Esophageal structure / Unknown 04/06/2025 12:53 PM EST 04/06/2025 2:22 PM EST Comment:Pre-op diagnosis: Malignant neoplasm of lower third of esophagus us Vivek Vitale MD LAB PATHOLOGY ORDERABLES Final Result [facility] [address] [place] [address] * (ABNORMAL) Blood gas panel, arterial (04/06/2025 8:20 AM EST) pH, Arterial 7.32 7.31 - 7.42 LAB HEMATOLOGY METHOD 04/06/2025 8:30 AM EST [facility] pCO2, Arterial 53(H) 32 - 45 mmHg LAB HEMATOLOGY METHOD 04/06/2025 8:30 AM EST [facility] pO2, Arterial 220 >70 mmHg LAB HEMATOLOGY METHOD 04/06/2025 8:30 AM EST [facility] SO2, Measured, Arterial 100(H) 94 - 98 % LAB HEMATOLOGY METHOD 04/06/2025 8:30 AM EST [facility] Base Excess, Arterial 0.3 -2.0 - 3.0 mmol/L LAB HEMATOLOGY METHOD 04/06/2025 8:30 AM EST [facility] Bicarbonate, Calculated, Arterial 27(H) 22 - 26 mmol/L LAB HEMATOLOGY METHOD 04/06/2025 8:30 AM EST [facility] Hematocrit, Whole Blood 36.3(L) 40.0 - 51.0 % LAB HEMATOLOGY METHOD 04/06/2025 8:30 AM EST [facility] Sodium, Whole Blood 142 136 - 145 mmol/L LAB HEMATOLOGY METHOD 04/06/2025 8:30 AM EST [facility] Potassium, Whole Blood 3.8 3.6 - 4.9 mmol/L LAB HEMATOLOGY METHOD 04/06/2025 8:30 AM EST [facility] Chloride, Whole Blood 107 97 - 107 mmol/L LAB HEMATOLOGY METHOD 04/06/2025 8:30 AM EST [facility] Glucose, Whole Blood 103(H) 74 - 99 mg/dL LAB HEMATOLOGY METHOD 04/06/2025 8:30 AM EST [facility] Ionized Calcium, Whole Blood 4.7 4.6 - 5.1 mg/dL LAB HEMATOLOGY METHOD 04/06/2025 8:30 AM EST [facility] Lactate, Arterial, Whole Blood 0.9 0.5 - 1.6 mmol/L LAB HEMATOLOGY METHOD 04/06/2025 8:30 AM EST [facility] Blood Arterial blood specimen / Unknown 04/06/2025 8:20 AM EST 04/06/2025 8:29 AM EST Comment:Pre-op diagnosis: Malignant neoplasm of lower third of esophagus Vivek Vitale MD LAB BLOOD ORDERABLES Final Resu lt [facility] [address] [place] [address] * Type and screen (04/06/2025 7:05 AM EST) ABO/Rh O Positive 04/06/2025 7:17 AM EST [facility] BLOOD BANK Antibody Screen Negative 04/06/2025 7:17 AM EST BLOOD BANK Specimen Expiration 04/09/2025 23:59 04/06/2025 7:17 AM EST BLOOD BANK Blood Venous blood specimen / Unknown Venipuncture / Unknown 04/06/2025 7:05 AM EST 04/06/2025 7:17 AM EST Vivek Vitale MD LAB BLOOD BANK TEST ORDERABLES Final Result Performing Organization Address City/[facility] Co de Phone Number BLOOD BANK [address] documented in this encounter Visit Diagnoses Diagnosis Esophageal cancer- Primary Malignant neoplasm of esophagus, unspecified site Malignant neoplasm of lower third of esophagus Feeding difficulties Feeding difficulties and mismanagement Former smoker Personal history of tobacco use, presenting hazards to health GERD (gastroesophageal reflux disease) Esophageal reflux HLD (hyperlipidemia) Other and unspecified hyperlipidemia Hypothyroid Unspecified hypothyroidism Obesity Obesity, unspecified [place] (obstructive sleep apnea) Obstructive sleep apnea (adult) (pediatric) Respiratory insufficiency Other dyspnea and respiratory abnormality Electrolyte abnormality Electrolyte and fluid disorders not elsewhere classified Hypertension Unspecified essential hypertension BPH (benign prostatic hyperplasia) Unspecified hyperplasia of prostate without urinary obstruction and other lower urinary tract symptoms (LUTS) Anemia Unspecified anemia Thrombocytopenia (CMS/HCC) Unspecified thrombocytopenia documented in this encounter Admitting Diagnoses Diagnosis Esophageal cancer Malignant neoplasm of esophagus, unspecified site documented in this encounter Administered Medications Inactive Administered Medications - up to 3 most recent administrations Medication Order MAR Action Action Date Dose Rate Site acetaminophen (Ofirmev) injection 1,000 mg 1,000 mg, Intravenous, Every 6 hours scheduled, 8 doses, First dose on Sun04/06/25 at 1430, Last dose on Sun04/08/25 at 0600, RoutineIndications:Pain New Bag 04/08/2025 6:04 AM EST 1,000 mg 400 mL/ hr New Bag 04/07/2025 11:11 PM EST 1,000 mg 400 mL/hr New Bag 04/07/2025 5:30 PM EST 1,000 mg 400 mL/hr acetaminophen (Tylenol) 160 MG/5ML solution 960 mg 960 mg, Per J Tube, Every 6 hours scheduled, First dose on Sun04/08/25 at 1200, Until Discontinued, Routine Given 04/15/2025 12:11 PM EST 960 mg Given 04/12/2025 5:20 PM EST 960 mg Given 04/12/2025 12:18 PM EST 960 mg aspirin oral suspension 81 mg 81 mg, Per J Tube, Daily, First dose (after last modification) on Sun04/08/25 at 0930, Until Discontinued, Routine Given 04/15/2025 12:13 PM EST 81 mg Given 04/14/2025 10:07 AM EST 81 mg Given 04/13/2025 10:34 AM EST 81 mg bisacodyl (Dulcolax) suppository 10 mg 10 mg, Rectal, Daily, First dose on Sun04/12/25 at 0915, Until Discontinued, Routine Given 04/13/2025 8:2 1 AM EST 10 mg Given 04/12/2025 9:23 AM EST 10 mg calcium gluconate 1 g in sodium chloride 0.9% 100 mL IVPB (vial adapter required) 1 g, Intravenous, Once, 1 dose, On Sun04/06/25 at 1600, at 240 mL/hr, Administer over 30 Minutes, Routine New Bag 04/06/2025 3:55 PM EST 1 g 240 mL/hr dextrose 5 % and lactated Ringer's infusion 75 mL/hr, Intravenous, Continuous, Starting on Sun04/06/25 at 1430, Until Nikky 04/09/25 at 0736, Routine Rate/Dose Verify 04/09/2025 8:00 AM EST 75 mL/hr 75 mL/hr Rate/Dose Verify 04/09/2025 7:00 AM EST 75 mL/hr 75 mL/h r Rate/Dose Verify 04/09/2025 6:00 AM EST 75 mL/hr 75 mL/h r enoxaparin (Lovenox) syringe 40 mg 40 mg, Subcutaneous, Daily, First dose on Sun04/07/25 at 1200, Until Discontinued, Routine Given 04/15/2025 9:34 AM EST 40 mg Right Upper Abdomen Given 04/14/2025 8:11 AM EST 40 mg Le ft Upper Abdomen Given 04/13/2025 8:20 AM EST 40 mg Le ft Lower Abdomen famotidine PF (Pepcid) injection 20 mg 20 mg, Intravenous, Once, 1 dose, On Sun04/06/25 at 0715, Routine, Holding - Preprocedure Given 04/06/2025 7:12 AM EST 20 mg Fiber Powder 1 packet 1 packet, Per J Tube, 2 times daily, First dose on Sun04/12/25 at 0915, Until Discontinued, Routine Given 04/15/2025 9:35 AM EST 1 packet Given 04/14/2025 8:45 PM EST 1 packet Given 04/14/2025 8:11 AM EST 1 packet heparin (porcine) injection 5,000 Units 5,000 Units, Subcutaneous, Once, 1 dose, On Sun04/06/25 at 0715, Routine, Holding - Preprocedure Given 04/06/2025 7:06 AM EST 5,000 Units Right Lower Abdomen heparin (porcine) injection 5,000 Units 5,000 Units, Subcutaneous, Every 8 hours scheduled, First dose on Sun04/06/25 at 2200, Until Discontinued, Routine, Recovery(Phase II-Outpatient)/On Unit(Inpatient) Given 04/07/2025 5:31 AM EST 5,000 Units Left Upper Arm (Back ) Given 04/06/2025 9:35 PM EST 5,000 Units R ight Upper Arm (Back) hydrALAZINE (Apresoline) injection 10 mg 10 mg, Intravenous, Every 4 hours PRN, Starting on Sun04/06/25 at 1338, Until Sun04/15/25 at 1825, Routine, Recovery(Phase II-Outpatient)/On Unit(Inpatient), high blood pressure, SBP > 180 and HR < 60 BPM hydrALAZINE (Apresoline) injection 5 mg 5 mg, Intravenous, Every 4 hours PRN, Starting on Sun04/06/25 at 1338, Until Sun04/15/25 at 1825, Routine, Recovery(Phase II-Outpatient)/On Unit(Inpatient), high blood pressure, SBP 160-180 and HR < 60 BPM Given 04/13/2025 11:53 AM EST 5 mg Given 04/11/2025 3:34 AM EST 5 mg Given 04/10/2025 4:35 PM EST 5 mg HYDROmorphone (Dilaudid) injection 0.25 mg 0.25 mg, Intravenous, Every 2 hour PRN, Starting on Sun04/07/25 at 0838, Until Sun04/08/25 at 0836, Routine, Recovery(Phase II-Outpatient)/On Unit(Inpatient), Moderate Severe Pain with CPOT score of 3 or greater OR FLACC PAINAD NPASS NRS Thompson-Morgan Faces score of 4 or greater OR DVPRS NIPS score of 5 or greater Given 04/07/2025 10:00 AM EST 0.25 mg HYDROmorphone (Dilaudid) injection 0.5 mg 0.5 mg, Intravenous, Every 2 hour PRN, Starting on Sun04/06/25 at 1338, Until Sun04/07/25 at 0840, Routine, Recovery(Phase II-Outpatient)/On Unit(Inpatient), Moderate Severe Pain with CPOT score of 3 or greater OR FLACC PAINAD NPASS NRS Thompson-Morgan Faces score of 4 or greater OR DVPRS NIPS score of 5 or greater Given 04/07/2025 3:41 AM EST 0.5 mg Given 04/06/2025 9:49 PM EST 0.5 mg Given 04/06/2025 5:00 PM EST 0.5 mg HYDROmorphone (Dilaudid) injection 0.5 mg 0.5 mg, Intravenous, Every 2 hour PRN, Starting on Sun04/07/25 at 0838, Until Sun04/08/25 at 0836, Routine, Recovery(Phase II-Outpatient)/On Unit(Inpatient), Moderate Severe Pain with CPOT score of 3 or greater OR FLACC PAINAD NPASS NRS Thompson-Morgan Faces score of 4 or greater OR DVPRS NIPS score of 5 or greater Given 04/08/2025 8:02 AM EST 0.5 mg Given 04/08/2025 4:12 AM EST 0.5 mg Given 04/08/2025 1:43 AM EST 0.5 mg ibuprofen 100 MG/5ML suspension 400 mg 400 mg, Per J Tube, Every 6 hours scheduled, First dose on Sun04/08/25 at 1200, Until Discontinued, Routine Given 04/15/2025 5:34 AM EST 400 mg Given 04/14/2025 11:21 PM EST 400 mg Given 04/14/2025 6:20 PM EST 400 mg iohexol (OMNIPaque) 350 MG/ML injection 200 mL 200 mL, Oral, Once in imaging, 1 dose, Starting on Sun04/13/25 at 0948, Until Sun04/13/25 at 1003, Routine, Imaging Protocol Orders Given 04/13/2025 10:03 AM EST 25 mL ketorolac (Toradol) injection 15 mg 15 mg, Intravenous, Every 6 hours scheduled, 8 doses, First dose on Sun04/06/25 at 1430, Last dose on Sun04/08/25 at 0600, Routine, Recovery(Phase II-Outpatient)/On Unit(Inpatient) Given 04/08/2025 6:04 AM EST 15 mg Given 04/07/2025 11:11 PM EST 15 mg Given 04/07/2025 5:30 PM EST 15 mg labetalol (Normodyne,Trandate) injection 10 mg 10 mg, Intravenous, Every 4 hours PRN, Starting on Sun04/06/25 at 1338, Until Sun04/15/25 at 1825, Routine, Recovery(Phase II-Outpatient)/On Unit(Inpatient), high blood pressure, SBP 160-180 and HR > 60 BPM labetalol (Normodyne,Trandate) injection 20 mg 20 mg, Intravenous, Every 4 hours PRN, Starting on Sun04/06/25 at 1338, Until Sun04/15/25 at 1825, Routine, Recovery(Phase II-Outpatient)/On Unit(Inpatient), high blood pressure, SBP > 180 and HR > 60 BPM levothyroxine (Synthroid) INTRAVENOUS injection 100 mcg 100 mcg, Intravenous, Every morning, First dose on Sun04/07/25 at 0600, Until Discontinued, Routine Given 04/07/2025 5:31 AM EST 100 mcg Levothyroxine Sodium (Thyquidity) 100 MCG/5ML oral solution 200 mcg 200 mcg, Per J Tube, Every morning, First dose on Sun04/08/25 at 0930, Until Discontinued, Routine Given 04/15/2025 5:34 AM EST 200 mcg Given 04/13/2025 5:17 AM EST 200 mcg Given 04/12/2025 6:46 AM EST 200 mcg lidocaine (Uro-Jet) 2 % gel 1 Application Urethral, As needed, Starting on Sun04/08/25 at 0116, Until Sun04/13/25 at 0715, Routine, Mild Plus Pain with CPOT DVPRS FLACC PAINAD NPASS NRS Thompson-Morgan Faces score of 1 or greater OR NIPS score 2 or greater Given 04/08/2025 2:00 AM EST 1 Application magnesium sulfate IVPB 2 g 2 g, Intravenous, Once, 1 dose, On Sun04/07/25 at 0245, Routine New Bag 04/07/2025 1:56 AM EST 2 g 25 mL/hr magnesium sulfate IVPB 2 g 2 g, Intravenous, Once, 1 dose, On Sun04/08/25 at 0745, Routine New Bag 04/08/2025 8:02 AM EST 2 g 25 mL/hr magnesium sulfate IVPB 2 g 2 g, Intravenous, Once, 1 dose, On Nikky 04/09/25 at 0715, Routine New Bag 04/09/2025 8:00 AM EST 2 g 25 mL/hr methocarbamol (Robaxin) injection 1,000 mg 1,000 mg, Intravenous, Every 8 hours, 9 doses, First dose (after last modification) on Sun04/07/25 at 1200, Last dose on Sun04/10/25 at 0400, Routine, Recovery(Phase II-Outpatient)/On Unit(Inpatient) Given During Downtime 04/10/2025 3:30 AM EST 1,000 mg Given 04/09/2025 8:10 PM EST 1,000 mg Given 04/09/2025 11:53 AM EST 1,000 mg mometasone-formoterol (Dulera 100) 100-5 MCG/ACT inhaler 2 puff 2 puff, Inhalation, 2 times daily, First dose on Sun04/07/25 at 0900, Until Discontinued, Routine Given 04/15/2025 9:30 AM EST 2 puffs Given 04/14/2025 8:46 PM EST 2 puffs Given 04/14/2025 8:11 AM EST 2 puffs mupirocin (Bactroban) 2 % ointment 1 Application Each Nostril, 2 times daily, 10 doses, First dose on Sun04/06/25 at 2100, Last dose on Sun04/11/25 at 0900, Routine Given 04/11/2025 8:46 AM EST 1 Application Given 04/10/2025 8:05 PM EST 1 Application Given 04/10/2025 9:59 AM EST 1 Application nitroglycerin (Tridil) 50 mg in 250 mL D5W (200 mcg/mL) infusion 0-2 mcg/kg/min 106 kg (0-63.6 mL/hr), 200 mcg/mL, Intravenous, Titrated, Starting on Sun04/06/25 at 1515, Until Sun04/07/25 at 0134, STAT Rate/Dose Verify 04/07/2025 12:00 AM EST 0.2 mcg/kg/min 6.36 mL/hr Rate/Dose Verify 04/06/2025 11:00 PM EST 0.2 mcg/kg/min 6. 36 mL/hr Rate/Dose Verify 04/06/2025 10:00 PM EST 0.2 mcg/kg/min 6. 36 mL/hr omeprazole-sodium bicarbonate (Konvomep) 2-84 MG/ML suspension 40 mg 40 mg, Per J Tube, Daily, First dose on Sun04/09/25 at 0900, Until Discontinued, Routine Given 04/15/2025 9:3 3 AM EST 40 mg Given 04/14/2025 8:11 AM EST 40 mg Given 04/13/2025 8:20 AM EST 40 mg oxyCODONE (Roxicodone) 1 MG/ML solution 10 mg 10 mg, Per J Tube, Every 4 hours PRN, Starting on Sun04/08/25 at 0836, Until Sun04/15/25 at 1825, Routine, Moderate Severe Pain with CPOT score of 3 or greater OR FLACC PAINAD NPASS NRS Thompson-Morgan Faces score of 4 or greater OR DVPRS NIPS score of 5 or greater Given 04/15/2025 9:32 AM EST 10 mg Given 04/15/2025 3:40 AM EST 10 mg Given 04/14/2025 10:25 PM EST 10 mg oxyCODONE (Roxicodone) 1 MG/ML solution 5 mg 5 mg, Per J Tube, Every 4 hours PRN, Starting on Sun04/08/25 at 0836, Until Sun04/15/25 at 1825, Routine, Moderate Severe Pain with CPOT score of 3 or greater OR FLACC PAINAD NPASS NRS Thompson-Morgan Faces score of 4 or greater OR DVPRS NIPS score of 5 or greater Given 04/11/2025 4:21 PM EST 5 mg Given 04/11/2025 10:23 AM EST 5 mg Given 04/11/2025 3:35 AM EST 5 mg pantoprazole (Protonix) injection 40 mg 40 mg, Intravenous, Daily, First dose on Sun04/06/25 at 1430, Until Discontinued, Routine, Recovery(Phase II-Outpatient)/On Unit(Inpatient) Given 04/08/2025 8:02 AM EST 40 mg Given 04/07/2025 10:00 AM EST 40 mg Given 04/06/2025 3:30 PM EST 40 mg phenol (Chloraseptic) 1.4 % mouth/throat spray 1 spray 1 spray, Mouth/Throat, Every 2 hour PRN, sore throat, Instruct patient to spit out after 15 seconds., Starting on Sun04/09/25 at 0641 Given 04/10/2025 10:02 AM EST 1 spray Potassium Chloride 20 MEQ/15ML (10%) solution 20 mEq 20 mEq, Per J Tube, Once, 1 dose, On Sun04/08/25 at 0930, Routine Given 04/08/2025 10:11 AM EST 20 mEq Potassium Chloride 20 MEQ/15ML (10%) solution 20 mEq 20 mEq, Per J Tube, Once, 1 dose, On Nikky 04/09/25 at 0715, Routine Given 04/09/2025 8:00 AM EST 20 mEq Potassium Chloride 20 MEQ/15ML (10%) solution 20 mEq 20 mEq, Per J Tube, Once, 1 dose, On Sun04/10/25 at 0515, Routine Given 04/10/2025 5:30 AM EST 20 mEq Potassium Chloride 20 MEQ/15ML (10%) solution 20 mEq 20 mEq, Per J Tube, Once, 1 dose, On Sun04/10/25 at 0800, Routine Given 04/10/2025 9:58 AM EST 20 mEq Potassium Chloride 20 MEQ/15ML (10%) solution 20 mEq 20 mEq, Per J Tube, Once, 1 dose, On Sun04/13/25 at 1715, Routine Given 04/13/2025 6:43 PM EST 20 mEq Potassium Chloride 20 MEQ/15ML (10%) solution 20 mEq 20 mEq, Per J Tube, Once, 1 dose, On Sun04/14/25 at 0845, Routine Given 04/14/2025 8:54 AM EST 20 mEq potassium chloride IVPB 10 mEq 10 mEq, Intravenous, Every 1 hour, 6 doses, First dose on Sun04/13/25 at 0815, Last dose on Sun04/13/25 at 1315, RoutineIndications:Hypokalemia New Bag 04/13/2025 11:54 AM EST 10 mEq 100 mL/hr New Bag 04/13/2025 10:34 AM EST 10 mEq 100 mL/hr New Bag 04/13/2025 8:38 AM EST 10 mEq 100 mL/hr Povidone-Iodine 5 % swab solution 1 Application Nasal, Once, 1 dose, On Sun04/06/25 at 0715, Routine Given 04/06/2025 7:12 AM EST 1 Application senna (Senokot) 8.8 MG/5ML syrup 8.8 mg 8.8 mg, Per J Tube, Nightly, First dose on Sun04/09/25 at 2100, Until Discontinued, Routine Given 04/14/2025 8:45 PM EST 8.8 mg Given 04/13/2025 9:31 PM EST 8.8 mg Given 04/12/2025 8:59 PM EST 8.8 mg sodium chloride (Fertile) 0.65 % nasal spray 1 spray 1 spray, Each Nostril, As needed, Starting on Sun04/08/25 at 2041, Until Sun04/13/25 at 0718, Routine, congestion Given 04/08/2025 10:18 PM EST 1 spray documented in this encounter Active and Recently Administered Medications Times are shown in EST. Scheduled Medication Order 04/13/2025 04/14/2025 04/15/2025 acetaminophen (Tylenol) 160 MG/5ML solution 960 mg 960 mg, Per J Tube, Every 6 hours scheduled, First dose on Sun04/08/25 at 1200, Until Discontinued, Routine 0516 (Not Given - Provider: Jessica Daniels RN - Reason: Patient/Family/Repre sentative Refused)1159 (Not Given - Provider: Khoi Flores RN - Reason: Patient/Family/Repre sentative Refused)1847 (Not Given - Provider: Khoi Flores RN - Reason: Patient/Family/Repre sentative Refused)2305 (Not Given - Provider: Jeanie Be RN - Reason: Patient/Family/Repre sentative Refused) 0519 (Not Given - Provider: Jeanie Be RN - Reason: Patient/Family/Repre sentative Refused)1218 (Not Given - Provider: Khoi Flores RN - Reason: Patient/Family/Repre sentative Refused)1824 (Not Given - Provider: Khoi Flores RN - Reason: Patient/Family/Repre sentative Refused)2320 (Not Given - Provider: Jeanie Be RN - Reason: Patient/Family/Repre sentative Refused) 0534 (Not Given - Provider: Jeanie Be RN - Reason: Patient/Family/Represen tative Refused)1211 (Given - Provider: Scott De La Cruz, LEEANNE)1800 (Canceled Entry - Provider: Automatic Discharge Provider - Comment: Automatically canceled at discontinue of medication order) aspirin oral suspension 81 mg 81 mg, Per J Tube, Daily, First dose (after last modification) on Sun04/08/25 at 0930, Until Discontinued, Routine 1034 (Given - Provider: Khoi Flores RN) 1007 (Given - Provider: Khoi Flores RN) 1213 (Given - Provider: Scott De La Cruz, LEEANNE) bisacodyl (Dulcolax) suppository 10 mg 10 mg, Rectal, Daily, First dose on Sun04/12/25 at 0915, Until Discontinued, Routine 0821 (Given - Provider: Khoi Flores RN) 0811 (Not Given - Provider: Khoi Flores RN - Reason: Patient/Family/Repre sentative Refused) 0935 (Not Given - Provider: Scott De La Cruz RN - Reason: Patient/Family/Represen tative Refused) enoxaparin (Lovenox) syringe 40 mg 40 mg, Subcutaneous, Daily, First dose on Sun04/07/25 at 1200, Until Discontinued, Routine 0820 (Given - Provider: Khoi Flores RN) 0811 (Given - Provider: Khoi Flores RN) 0934 (Given - Provider: Scott De La Cruz, RN) Fiber Powder 1 packet 1 packet, Per J Tube, 2 times daily, First dose on Sun04/12/25 at 0915, Until Discontinued, Routine 0827 (Given - Provider: Khoi Flores RN)2132 (Given - Provider: Jeanie Be RN) 0811 (Given - Provider: Khoi Flores RN)204 (Given - Provider: Jeanie Be RN) 0935 (Given - Provider: Scott De La Cruz, LEEANNE) ibuprofen 100 MG/5ML suspension 400 mg 400 mg, Per J Tube, Every 6 hours scheduled, First dose on Sun04/08/25 at 1200, Until Discontinued, Routine 0516 (Given - Provider: Jessica Daniels RN)1201 (Given - Provider: Khoi Flores RN)1843 (Given - Provider: Khoi Flores RN)2305 (Given - Provider: Jeanie Be, RN) 0521 (Not Given - Provider: Jeanie Be RN - Reason: Hold for condition: must add comment - Comment: J tube clamped per MD. )1223 (Given - Provider: Khoi Flores RN)1820 (Given - Provider: Khoi Flores RN)2321 (Given - Provider: Jeanie Be, LEEANNE) 0534 (Given - Provider: Jeanie Be RN)1212 (Not Given - Provider: Scott De La Cruz, LEEANNE - Reason: Patient/Family/Represen tative Refused)1800 (Canceled Entry - Provider: Automatic Discharge Provider - Comment: Automatically canceled at discontinue of medication order) iohexol (OMNIPaque) 350 MG/ML injection 200 mL (COMPLETED) 200 mL, Oral, Once in imaging, 1 dose, Starting on Sun04/13/25 at 0948, Until Sun04/13/25 at 1003, Routine, Imaging Protocol Orders 1003 (Given - Provider: Nadia Khan) Levothyroxine Sodium (Thyquidity) 100 MCG/5ML oral solution 200 mcg 200 mcg, Per J Tube, Every morning, First dose on Sun04/08/25 at 0930, Until Discontinued, Routine 0517 (Given - Provider: Jessica Daniels RN) 0520 (Not Given - Provider: Jeanie Be RN - Reason: Hold for condition: must add comment - Comment: J tube clamped per MD) 0534 (Given - Provider: Jeanie Be RN) mometasone-formoterol (Dulera 100) 100-5 MCG/ACT inhaler 2 puff 2 puff, Inhalation, 2 times daily, First dose on Sun04/07/25 at 0900, Until Discontinued, Routine 0820 (Given - Provider: Khoi Flores RN)2132 (Given - Provider: Jeanie Be, LEEANNE) 0811 (Given - Provider: Khoi Flores RN)204 (Given - Provider: Jeanie Be, LEEANNE) 0930 (Given - Provider: Scott De La Cruz, LEEANNE) omeprazole-sodium bicarbonate (Konvomep) 2-84 MG/ML suspension 40 mg 40 mg, Per J Tube, Daily, First dose on Sun04/09/25 at 0900, Until Discontinued, Routine 0820 (Given - Provider: Khoi Flores RN) 0811 (Given - Provider: Khoi Flores RN) 0933 (Given - Provider: Scott De La Cruz, LEEANNE) Potassium Chloride 20 MEQ/15ML (10%) solution 20 mEq (COMPLETED) 20 mEq, Per J Tube, Once, 1 dose, On Sun04/13/25 at 1715, Routine 1843 (Given - Provider: Khoi Flores RN) Potassium Chloride 20 MEQ/15ML (10%) solution 20 mEq (COMPLETED) 20 mEq, Per J Tube, Once, 1 dose, On Sun04/14/25 at 0845, Routine 0854 (Given - Provider: Khoi Flores, LEEANNE) potassium chloride IVPB 10 mEq () 10 mEq, Intravenous, Every 1 hour, 6 doses, First dose on Sun04/13/25 at 0815, Last dose on Sun04/13/25 at 1315, Routine 0838 (New Bag - Provider: Khoi Flores, LEEANNE)1034 (New Bag - Provider: Khoi Flores RN)1154 (New Bag - Provider: Khoi Flores RN)1230 (Not Given - Provider: Khoi Flores RN - Reason: Order changed - Comment: d/c per [employer])1234 (Not Given - Provider: Khoi Flores RN - Reason: Order changed - Comment: d/c per [employer])1235 (Not Given - Provider: Khoi Flores RN - Reason: Patient/Family/Repre sentative Refused - Comment: d/c per [employer]) senna (Senokot) 8.8 MG/5ML syrup 8.8 mg 8.8 mg, Per J Tube, Nightly, First dose on Nikky 04/09/25 at 2100, Until Discontinued, Routine 2130 (Given - Provider: Jeanie Be RN) 2044 (Given - Provider: Jeanie Be RN) PRN Medication Order 04/13/2025 04/14/2025 04/15/2025 hydrALAZINE (Apresoline) injection 10 mg(Linked Group 1) 10 mg, Intravenous, Every 4 hours PRN, Starting on Sun04/06/25 at 1338, Until Sun04/15/25 at 1825, Routine, Recovery(Phase II-Outpatient)/On Unit(Inpatient), high blood pressure, SBP > 180 and HR < 60 BPM 1153 (See Alternative - Provider: Khoi Flores RN) hydrALAZINE (Apresoline) injection 5 mg(Linked Group 1) 5 mg, Intravenous, Every 4 hours PRN, Starting on Sun04/06/25 at 1338, Until Sun04/15/25 at 1825, Routine, Recovery(Phase II-Outpatient)/On Unit(Inpatient), high blood pressure, SBP 160-180 and HR < 60 BPM 1153 (Given - Provider: Khoi Flores RN) labetalol (Normodyne,Trandate) injection 10 mg(Linked Group 2) 10 mg, Intravenous, Every 4 hours PRN, Starting on Sun04/06/25 at 1338, Until Sun04/15/25 at 1825, Routine, Recovery(Phase II-Outpatient)/On Unit(Inpatient), high blood pressure, SBP 160-180 and HR > 60 BPM labetalol (Normodyne,Trandate) injection 20 mg(Linked Group 2) 20 mg, Intravenous, Every 4 hours PRN, Starting on Sun04/06/25 at 1338, Until Sun04/15/25 at 1825, Routine, Recovery(Phase II-Outpatient)/On Unit(Inpatient), high blood pressure, SBP > 180 and HR > 60 BPM oxyCODONE (Roxicodone) 1 MG/ML solution 10 mg(Linked Group 3) 10 mg, Per J Tube, Every 4 hours PRN, Starting on Sun04/08/25 at 0836, Until Sun04/15/25 at 1825, Routine, Moderate Severe Pain with CPOT score of 3 or greater OR FLACC PAINAD NPASS NRS Thompson-Morgan Faces score of 4 or greater OR DVPRS NIPS score of 5 or greater 0517 (Given - Provider: Jessica Daniels RN)0922 (Given - Provider: Khoi Flores RN)1614 (Given - Provider: Khoi Flores RN)2131 (Given - Provider: Jeanie Be RN) 0342 (Given - Provider: Jeanie Be RN)0812 (Given - Provider: Khoi Flores RN)1223 (Given - Provider: Khoi Flores, LEEANNE)1820 (Given - Provider: Khoi Flores RN)2225 (Given - Provider: Jeanie Be RN) 0340 (Given - Provider: Jeanie Be RN)0932 (Given - Provider: Scott De La Cruz RN) oxyCODONE (Roxicodone) 1 MG/ML solution 5 mg(Linked Group 3) 5 mg, Per J Tube, Every 4 hours PRN, Starting on Sun04/08/25 at 0836, Until Sun04/15/25 at 1825, Routine, Moderate Severe Pain with CPOT score of 3 or greater OR FLACC PAINAD NPASS NRS Thompson-Morgan Faces score of 4 or greater OR DVPRS NIPS score of 5 or greater 0517 (See Alternative - Provider: Jessica Daniels, LEEANNE)[id number] (See Alternative - Provider: Khoi Flores, RN)[id number] (See Alternative - Provider: Khoi Flores, RN)[phone] (See Alternative - Provider: Jeanie Be, LEEANNE) 0342 (See Alternative - Provider: Jeanie Be, RN)0812 (See Alternative - Provider: Khoi Flores, RN)1223 (See Alternative - Provider: Khoi Flores, LEEANNE)1820 (See Alternative - Provider: Khoi Flores, RN)2225 (See Alternative - Provider: Jeanie Be, RN) 0340 (See Alternative - Provider: Jeanie Be, LEEANNE)0932 (See Alternative - Provider: Scott De La Cruz RN) phenol (Chloraseptic) 1.4 % mouth/throat spray 1 spray 1 spray, Mouth/Throat, Every 2 hour PRN, sore throat, Instruct patient to spit out after 15 seconds., Starting on Nikky 04/09/25 at 0641 Linked Groups Order Group 1: hydrALAZINE (Apresoline) injection 5 mgJump to med 5 mg, Intravenous, Every 4 hours PRN, Starting on Sun04/06/25 at 1338, Until Sun04/15/25 at 1825, Routine, Recovery(Phase II-Outpatient)/On Unit(Inpatient), high blood pressure, SBP 160-180 and HR < 60 BPM Or hydrALAZINE (Apresoline) injection 10 mgJump to med 10 mg, Intravenous, Every 4 hours PRN, Starting on Sun04/06/25 at 1338, Until Sun04/15/25 at 1825, Routine, Recovery(Phase II-Outpatient)/On Unit(Inpatient), high blood pressure, SBP > 180 and HR < 60 BPM Group 2: labetalol (Normodyne,Trandate) injection 10 mgJump to med 10 mg, Intravenous, Every 4 hours PRN, Starting on Sun04/06/25 at 1338, Until Sun04/15/25 at 1825, Routine, Recovery(Phase II-Outpatient)/On Unit(Inpatient), high blood pressure, SBP 160-180 and HR > 60 BPM Or labetalol (Normodyne,Trandate) injection 20 mgJump to med 20 mg, Intravenous, Every 4 hours PRN, Starting on Sun04/06/25 at 1338, Until Sun04/15/25 at 1825, Routine, Recovery(Phase II-Outpatient)/On Unit(Inpatient), high blood pressure, SBP > 180 and HR > 60 BPM Group 3: oxyCODONE (Roxicodone) 1 MG/ML solution 5 mgJump to med 5 mg, Per J Tube, Every 4 hours PRN, Starting on Sun04/08/25 at 0836, Until Sun04/15/25 at 182, Routine, Moderate Severe Pain with CPOT score of 3 or greater OR FLACC PAINAD NPASS NRS Thompson-Morgan Faces score of 4 or greater OR DVPRS NIPS score of 5 or greater Or oxyCODONE (Roxicodone) 1 MG/ML solution 10 mgJump to med 10 mg, Per J Tube, Every 4 hours PRN, Starting on Sun04/08/25 at 0836, Until Sun04/15/25 at 182, Routine, Moderate Severe Pain with CPOT score of 3 or greater OR FLACC PAINAD NPASS NRS Thompson-Morgan Faces score of 4 or greater OR DVPRS NIPS score of 5 or greater documented in this encounter Additional Health Concerns Active Problems Noted Date Diagnosed Date Autogenerated Problem 03/12/2025 Assessment Noted Time PHQ-9 Depression Total Score: 1 11/01/19 3:42 PM EDT A fall risk assessment has been complete d for the patient 03/12/2025 12:52 PM EDT A Body Mass Index follow-up plan has been documented for the patient 04/15/2025 2:45 PM EST documented as of this encounter Care Teams Picture Painter Relationship Specialty Start Date End Date Jatinder Clifford MD PCP - General Family Medicine 11/05/24 documented as of this encounter
--- OUTSIDE RECORDS SUMMARY | 2025-04-06 07:30 | XMS_ITS | Encounter Summary ---
Author Organization Healthcare Address [address] 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 Procedures OR ESOPHAGECTOMY DISTAL 2/3 W/LAPAROSCOPIC MOBLJ OR LAP, SURG JEJUNOSTOMY OR EDG INTRALUMINAL TUBE/CATHETER INSERTION OR BRONCHOSCOPY,DIAGNOSTIC JOSE C DARIANA ESOPHAGECTOMY JOSE C DARIANA ESOPHAGECTOMY JOSE C DARIANA ESOPHAGECTOMY JOSE C DARIANA ESOPHAGECTOMY Everett Beyer, DO [address] [address] Phone: tel: fax: [facility] [address] [place] [address] Phone: tel: Referral ID Status Reason Start Date Expiration Date Visits Re quested Visits Authorized [id number] 1 4 Encounter Details Date Type Department Care Team (Late st Contact Info) Description 04/06/2025 7:30 AM EST Anesthesia Event [facility] [address] [place] [address] Vivek Vitale MD [address] [place] [address] Anesthesia Record Procedure Summary Procedure Name Responsible Anesthesiologist Anesthesia Start Time Anesthesia Stop Time JOSE C DARIANA ESOPHAGECTOMY (Abdomen) Vivek Vitale MD 04/06/25 0730 04/06/25 1429 Events Date Time Event Comment 04/06/2025 0729 In Room 0730 0730 An Start The patient was reevaluated immediately before sedation and remains eligible for anesthesia plan. 0730 ANPATVER 0731 An Start Data 0739 An Induction The patient was reevaluated immediately before moderate or deep sedation use and before anesthesia induction. 0739 An Intubation 0743 IV Placed 0745 Line Placement 0749 Anesthesia Ready 0805 Proc Start 1057 An one lung vent 1305 An Two-Lung Vent 1359 Proc Fin 1414 An Extubation 1416 an stop data 1420 Out of Room 1429 Handoff to Receiving I compl eted my handoff to the receiving clinician during which we: 1. Identified the patient 2. Identified the responsible provider 3. Reviewed the pertinent medical history 4. Discussed the surgical course 5. Reviewed intra-op anesthesia management and issues during anesthesia 6. Set expectations for post-procedure period 7. Allowed opportunity for questions and acknowledgement of understanding. 1429 An Stop Meds Name Total fentaNYL (Sublimaze) injection 50 mcg/mL 300 mcg propofol (Diprivan) injection 10 mg/mL 1 20 mg rocuronium (ZeMuron) injection 10 mg/mL 270 mg dexamethasone (Decadron) injection 4 mg/ mL 8 mg HYDROmorphone PF (Dilaudid) injection 1 mg/mL 2 mg ePHEDrine injection prefilled syringe 5 mg/mL 15 mg ondansetron (Zofran) injection 2 mg/mL 4 mg sugammadex (Bridion) injection 100 mg/mL 300 mg Lidocaine HCl 100 MG/5ML 100 mg ceFAZolin 1 g 4 g nitroglycerin (Tridil) bolus 500 mcg dexmedetomidine (Precedex) injection 100 mcg/mL 40 mcg acetaminophen (Ofirmev) injection 10 mg/ mL 1,000 mg lactated Ringer's infusion 3,000 mL * Agents Name O2 N2O Air Sevoflurane Isoflurane Desflurane Inspired Desflurane Inspired Isoflurane Inspired Sevoflurane N2O Inspired N2O * Blood No blood administrations on file. Lines, Drains, and Airways Type Details Placement Removal Wound 12/12/24; 1437; N; Y es; Surgical; Abdomen; Upper 12/12/24 1437 by Ricarda Alonso, RN Gastrostomy/Enterosto my 04/06/25; 1030; Jejunostomy; 14 Fr.; LUQ 04/06/25 1030 by Dami Mazariegos RN Wound 04/06/25; 1251; Surgical; Flank; Right, Outer 04/06/25 1251 by Dami Mazariegos RN Peripheral IV Placement Date: 04/06/25; Placement Time: 07; Catheter Size: 18 G; Orientation: Posterior, Right; Location: Hand; Site Prep: Chlorhexidine ; Local Anesth: Injectable; Inserted by: Jessica Goode; Insertion Attempts: 1; Patient Tolerance: Tolerated well; Removal Date: 04/07/25; Removal Time: 1999; Removal Reason: Occluded 04/06/25 07 by Carlene Goode RN 04/07/251999 by Niesha Huerta ETT Placement Date: 04/06/25; Placement Time: 07 (created via procedure documentation); Mask Ventilation: 2; Technique: Direct laryngoscopy; Type: ETT - single, ETT - double lumen left; Double Lumen Tube Size: 39 Fr; Cuffed: Yes; Laryngoscope: John; Blade Size: 4; Location: Oral; Grade View: Grade I; Insertion Attempts: 1; Placement Verification: Auscultation, Bronchoscopy, Capnometry; Airway Comments: Atraumatic. No change to dentition. ; Placed by: Resident ; Removal Date: 04/06/25; Removal Time: 1414 04/06/25 0739 by Vivek Vitale MD 04/06/25 141 by Amy Mccarthy MD Urethral Catheter Placement Date: 04/06/25; Placement Time: 08; Existing LDA Placed by: Other (Comment); Type: Latex; Size: 16 Fr.; Balloon Size: 10 mL; Urine Returned: Yes; Removal Date: 04/07/25; Removal Time: 1415; Removal Reason: Per order 04/06/25 0800 by Wendy Camara RN 04/07/25 1415 by Mario Alberto Price RN Arterial Line Placement Date: 04/06/25; Placement Time: 0808 (created via procedure documentation); Size: 20 G; Orientation: Right; Location: Radial; Inserted by: Resident; Securement: Taped; Patient Tolerance: Tolerated well; Removal Date: 04/07/25; Removal Time: 1100; Removal Reason: Per order 04/06/25 0808 by Amy Mccarthy MD 04/07/25 1100 by Dee, Mario Alberto C, RN Peripheral IV Placement Date: 04/06/25; Placement Time: 807 (created via procedure documentation); Catheter Size: 14 G ; Orientation: Left; Location: Hand; Local Anesth: None; Technique: Anatomical landmarks; Inserted by: Vivek Vitale MD; Insertion Attempts: 1; Removal Date: 04/08/25; Removal Time: 1999; Removal Reason: Leaking 04/06/25 0808 by Amy Mccarthy MD 04/08/251999 by Niesha Huerta Chest Tube Placement Date: 04/06/25; Placement Time: 1250; Inserted by: Dr. Beyer; Orientation: Right; Location: Pleural; Size: 28 Fr; Drainage System: [place]/nonsuction water seal drainage; Removal Date: 04/09/25; Removal Reason: Removed by patient 04/06/25 1251 by Dami Mazariegos RN 04/09/25 0000 by Hermelinda Muniz RN Closed/Suction Drain 04/06/25; 1252; Rig ht, Lateral; Pleural; Bulb; Other (Comment) (Removed by provider for pt D/C expected today.) 04/06/25 1252 by Dami Mazariegos RN 04/15/25 0000 by Scott De La Cruz RN documented in this encounter Social History Tobacco [...] were you homeless or living in a half-way (including now)? No 04/07/2025 [facility] Utilities Answer Date Recorded In the [...] as of this encounter Functional Status * Question Answer Date of Assessment Author Precautions Environmental surveillance 04/07/2025 8:0 0 AM Mario Alberto Santos RN * Calculated C-SSRS Risk Score (Lifetime/Recent) Answer Date of Assessment Author No Risk Indicated 04/06/2025 8:00 PM Claudia Guerra RN * Question Answer Date of Assessment Author 1. Wish to be (Past 1 Month) No 025 8:00 PM Bharti Guerra RN 2. Non-Specific Active Suici isabel Thoughts (Past 1 Month) No 04/06/2025 8:00 PM EST Bharti Cobian RN 6. Suicidal Behavior (Lifetime) No 8:00 PM EST Bharti Cobian RN documented as of this encounter Mental Status * Question Answer Entry Date Author Precautions Environmental surveillance 04/07/2025 8:0 0 AM EST Mario Alberto Price RN documented in this encounter Miscellaneous Notes * Anesthesia Postprocedure Evaluation - Amy Mccarthy MD - 04/06/2025 2:30 PM EST Patient: Dino Cook Anesthesia Type: general Vitals Value Taken Time BP 150/58 04/06/25 14:30 Temp 36.4 04/06/25 14:30 Pulse 84 04/06/25 14:30 Resp 17 04/06/25 14:30 SpO2 97 04/06/25 14:30 Anesthesia Post Evaluation Patient location during evaluation: ICU Patient participation: complete - patient cannot participate Level of consciousness: sedated Pain management: adequate (pain score 0-3) Airway patency: natural airway Cardiovascular status: acceptable and hemodynamically stable Respiratory status: spontaneous ventilation, nonlabored ventilation and face mask Hydration status: acceptable Nausea/Vomiting: No No notable events documented. Cosigned by Vivek Vitale MD at 04/07/2025 9:18 AM EST Associated attestation - Vivek Vitale MD - 04/07/2025 9:18 AM EST I agree with the findings and care plan documented in the postprocedure evaluation note. * Anesthesia Procedure Notes - Amy Mccarthy MD - 04/06/2025 8:08 AM EST Associated Order(s): Peripheral IV Peripheral IV Inserted by: Vivek Vitale MD Placement Needle size: 14 G Location: hand Local anesthetic: none Site prep: alcohol Technique: anatomical landmarks Attempts: 1 Cosigned by Vivek Vitale MD at 04/06/2025 8:40 AM EST Associated attestation - Vivek Vitale MD - 04/06/2025 8:40 AM EST I was present during all critical and jauregui portions of the procedure(s) and immediately available tofurnish services the entire duration. See resident note for details. * Anesthesia Procedure Notes - Amy Mccarthy MD - 04/06/2025 8:07 AM EST Associated Order(s): Arterial Line Arterial Line: An arterial line was placed. Procedure performed using ultrasound guidance in the OR for the following indication(s): continuousblood pressure monitoring. A 20 gauge (size), 3/4 inch (length), Arrow (type) catheter was placed into the Right radial arteryand secured by tape. Seldinger technique used Events: patient tolerated procedure well with no complications. Staffing Performed: Resident Anesthesiologist: Vivek Vitale MD Resident: Amy Mccarthy MD Cosigned by Vivek Vitale MD at 04/06/2025 8:40 AM EST Associated attestation - Vivek Vitale MD - 04/06/2025 8:40 AM EST I was present during all critical and jauregui portions of the procedure(s) and immediately available tofurnish services the entire duration. See resident note for details. * Anesthesia Procedure Notes - Vivek Vitale MD - 04/06/2025 7:56 AM EST Associated Order(s): Airway Airway Date/Time: 04/06/2025 7:39 AM Reason: elective Airway not difficult General Information and Staff Patient location during procedure: OR Anesthesiologist: Vivek Vitale MD Performed: Resident Patient Condition Indications for airway management: anesthesia Patient position: sniffing Planned trial extubation Final Airway Details Final airway type: endotracheal airway Successful airway: ETT and ETT - double lumen left Cuffed: yes Successful intubation technique: direct laryngoscopy Adjuncts used in placement: intubating stylet Endotracheal tube insertion site: oral Blade: John Blade size: #4 ETT DL size (fr): 39 Cormack-Lehane Classification: grade I - full view of glottis Placement verified by: chest auscultation, bronchoscopy and capnometry Measured from: lips Additional Comments Atraumatic. No change to dentition. * Anesthesia Preprocedure Evaluation - Amy Mccarthy MD - 04/03/2025 4:51 PM EST HPI Edwin Cook is a 70 y.o. male who presents with Pre-op Diagnosis * Malignant neoplasm of lower third of esophagus [C15.5] now scheduled for JOSE C DARIANA ESOPHAGECTOMY(N/A). Date scheduled is 04/06/2025. Additional medical problems include Hypothyroidism, JUAN DIEGO with CPAP usage, GERD, prior CVA and recentTIA in 10/2024. The patient without previous problems with general anesthesia. Procedure Information Date/Time: 04/06/25729 Procedure: JOSE C DARIANA ESOPHAGECTOMY Location: [facility] OR [address] [place] [address] OR Surgeons: Everett Beyer, DO Relevant Problems Anesthesia (+) JUAN DIEGO (obstructive sleep apnea) Endo (+) Hypothyroid GI (+) GERD (gastroesophageal reflux disease) (+) Obesity Neuro/Psych (+) Stroke (CMS/HCC) ALLERGIES Allergies[1] NPO STATUS Past Medical History[2] AIRWAY HISTORY Airway Detailed Review Displaying the 20 most recent records Date Difficult Airway Blade Size ETT Size C-L Class Final Type Intubation Method 12/12/24 No 3 8.0 grade IIa - partial view of glottis endotracheal airway direct laryngoscopy MEDICATIONS Outpatient Current Outpatient Medications Medication Instructions armodafinil (NUVIGIL) 200 mg, Daily aspirin 81 mg, Oral, Daily Boost VHC (Boost) VHC liquid 237 mL, Per PEG Tube, 4 times daily buPROPion XL (WELLBUTRIN XL) 300 mg, Daily Feeding Supplies misc Please send months supply of gravity bags and syringes with monthly order fenofibrate (TRIGLIDE) 160 mg, Daily fluticasone-salmeterol (Advair Diskus) 250-50 MCG/ACT diskus inhaler 1 puff, 2 times daily levothyroxine (SYNTHROID, LEVOXYL) 50 mcg, Daily levothyroxine (SYNTHROID, LEVOXYL) 200 mcg, Daily losartan (COZAAR) 25 mg, Daily rnndxiep-alpgajwuf-atwwipmnaodvl (Maxitrol) 3.5-10503-9.1 ophthalmic suspension 2 times a day. omeprazole (PriLOSEC) [address] capsule ondansetron ODT (Zofran-ODT) [address] 1 TABLET UNDER THE TONGUE AND ALLOW TO DISSOLVE 2 TIMES EACH DAY FOR 2 DAYS AFTER CHEMOTHERAPY potassium chloride CR (Klor-Con) 10 MEQ ER tablet 10 mEq, Daily prochlorperazine (Compazine) 10 MG tablet TAKE 1 TABLET EVERY 6 HOURS NEEDED FOR NAUSEA AND VOMITING rosuvastatin (CRESTOR) 20 mg, Oral, Daily tamsulosin (Flomax) 0.4 MG 24 hr capsule TAKE 1 CAPSULE 1 TIME EACH DAY FOR PROSTATE Scheduled Current Scheduled Medications[3] PRNs Current PRN Medications[4] SURGICAL HX: Surgical History[5] SOCIAL HX: Social History[6] OBJECTIVE DATA LABS Lab Results Component Value Date WBC 8.68 10/27/2024 HGB 14.0 10/27/2024 HCT 42.9 10/27/2024 MCV 89 10/27/2024 PLT 194 10/27/2024 Lab Results Component Value Date CALCIUM 8.6 (L) 10/27/2024 BUN 11 10/27/2024 CREATININE 1.02 10/27/2024 BCR 11 10/27/2024 NA 138 10/27/2024 K 3.8 10/27/2024 CL 104 10/27/2024 CO2 25 10/27/2024 Type and Screen No results found for: ABO Lab Results Component Value Date HGBA1C 5.6 10/25/2024 No results found for: PGLU , GLUCOSE ABG No results found for: PHART , VXS4WEI , PO2ART , SO2ART , BEART , LTS1SOM , HCTART , SODIUMART , POTASSIUMART , POCTCL , POCGLU , IONCALART , LACTATE Lab Results Component Value Date CAION 4.0 (L) 10/27/2024 ECHO Echo, Adult Transthoracic Complete Result Date: 10/27/2024 The left ventricle is normal size. There is concentric remodeling. The left ventricular systolic function is normal. The LVEF is visually estimated at 60 - 70%. The right ventricle is normal in size.The right ventricular systolic function is normal. The left atrium is dilated by visual assessment.There is no recent study available for direct ktns-mu-wybg comparison. PFTs No results found for: ISW7HUD , JAB3OCQI , LNT7YKY , FVCPRED BP Readings from Last 5 Encounters: 03/12/25 112/58 12/25/24 116/68 12/12/24 128/69 11/20/24 131/62 10/31/24 (!) 140/68 Physical Exam Airway Mallampati: II Mouth opening: normal TM distance: >3 FB Neck ROM: limited Cardiovascular Rhythm: regular Rate: normal Dental (+) edentulous Pulmonary Breath sounds clear to auscultation Neurological Oriented: normal to time, normal to person and normal to place Skin Musculoskeletal Extremities Anesthesia Plan ASA 3 Anesthesia technique(s) discussed with the patient/family: general Anesthesia plan agreed upon was: general ROS Anesthesia: history of previous anesthesia and obstructive sleep apnea. Does not have a history of anesthetic complications. Cardiovascular: dysrhythmias and hyperlipidemia. Exercise tolerance is 3 flights of stairs. Respiratory: COPD: HEENT: missing teeth. Neurological: a cerebrovascular accident. Neuro additional comments: TIA 10/25/24 Gastrointestinal: GERD:GI malignancy and swallowing disorder. Hematological/Lymphatic: History of no DVT. History of no pulmonary embolism. Endocrine/Metabolic: thyroid disorder. [1] No Known Allergies [2] Past Medical History: Diagnosis Date Esophageal cancer Hypothyroidism Sleep apnea Stroke (CMS/HCC) 10/25/2024 [3] mupirocin, 1 Application, Each Nostril, BID [4] [5] Past Surgical History: Procedure Laterality Date BACK SURGERY x4 LUMBAR FUSION PEG TUBE REMOVAL 11/2024 SKIN CANCER EXCISION x2 [6] Social History Tobacco Use Smoking status: Former Current packs/day: 0.00 Average packs/day: 3.0 packs/day for 33.0 years (99.0 ttl pk-yrs) Types: Cigarettes Start date: 1966 Quit date: 2000 Years since quittin.8 Passive exposure: Past Smokeless tobacco: Never Vaping Use Vaping status: Never Used Substance Use Topics Alcohol use: Not Currently Comment: 1-2 servings weekly Drug use: Never Cosigned by Vivek Vitale MD at 04/06/2025 8:40 AM EST Associated attestation - Vivek Vitale MD - 04/06/2025 8:40 AM EST I agree with the findings and care plan documented in the preprocedure evaluation note. documented in this encounter Plan of Treatment Upcoming Encounters Date Type Department Care Team (Late st Contact Info) Description 08/20/2025 10:15 AM EDT Office Visit [facility] [address] [facility] [place] [address] Everett Beyer, DO [address] [facility] [address] [place] [address] documented as of this encounter Goals Goal Patient Goal Type Associated Problems Recent Progress Patient-Stated? Author Autogenerat ed Goal Care Plan Autogenerated Problem No Nicole Ty documented as of this encounter Procedures Procedure Name Priority Date/Time Associated Diagnosis Comments ANESTHESIA PERIPHERAL IV PLACEMENT Routine 04/06/2025 8:08 AM EST PB ANESTHESIA NON-TIMED PROCEDURE PLACEHOLDER Routine 04/06/2025 8:07 AM EST PB ANESTHESIA PLACEHOLDER Routine 04/06/2025 7:39 AM EST OR AN ELECTIVE ENDOTRACHEAL AIRWAY Routine 04/06/2025 7:39 AM EST documented in this encounter Results * Peripheral IV (04/06/2025 8:08 AM EST) Vivek Singh MD - 04/06/2025 8:08 AM EST Vivek Vitale MD 04/06/2025 8:40 AM Peripheral IV Inserted by: Vivek Vitale MD Placement Needle size: 14 G Location: hand Local anesthetic: none Site prep: alcohol Technique: anatomical landmarks Attempts: 1 Vivek Vitale MD ANESTHESIA ORDERABLES Final Res ult * PB ANESTHESIA NON-TIMED PROCEDURE PLACEHOLDER (04/06/2025 8:07 AM EST) Vivek Singh MD - 04/06/2025 8:07 AM EST Vivek Vitale MD 04/06/2025 8:40 AM Arterial Line: An arterial line was placed. Procedure performed using ultrasound guidance in the OR for the following indication(s): continuous blood pressure monitoring. A 20 gauge (size), 3/4 inch (length), Arrow (type) catheter was placed into the Right radial artery and secured by tape. Seldinger technique used Events: patient tolerated procedure well with no complications. Staffing Performed: Resident Anesthesiologist: Vivek Vitale MD Resident: Amy Mccarthy MD Vivek Vitale MD ANESTHESIA ORDERABLES Final Res ult * OR AN ELECTIVE ENDOTRACHEAL AIRWAY, PB ANESTHESIA PLACEHOLDER (04/06/2025 7:39 AM EST) Vivek Singh MD - 04/06/2025 7:39 AM EST Vivek Vitale MD 04/06/2025 7:57 AM Airway Date/Time: 04/06/2025 7:39 AM Reason: elective Airway not difficult General Information and Staff Patient location during procedure: OR Anesthesiologist: Vivek Vitale MD Performed: Resident Patient Condition Indications for airway management: anesthesia Patient position: sniffing Planned trial extubation Final Airway Details Final airway type: endotracheal airway Successful airway: ETT and ETT - double lumen left Cuffed: yes Successful intubation technique: direct laryngoscopy Adjuncts used in placement: intubating stylet Endotracheal tube insertion site: oral Blade: John Blade size: #4 ETT DL size (fr): 39 Cormack-Lehane Classification: grade I - full view of glottis Placement verified by: chest auscultation, bronchoscopy and capnometry Measured from: lips Additional Comments Atraumatic. No change to dentition. us Vivek Vitale MD ANESTHESIA ORDERABLES Final Res ult documented in this encounter Visit Diagnoses Not on filedocumented in this encounter Administered Medications Inactive Administered Medications - up to 3 most recent administrations Medication Order MAR Action Action Date Dose Rate Site acetaminophen (Ofirmev) injection Intravenous, As needed, Starting on Sun04/06/25 at 0913, Until Sun04/06/25 at 1429, Routine Given 04/06/2025 9:13 AM EST 1,000 mg ceFAZolin (Ancef) injection Intravenous, As needed, Starting on Sun04/06/25 at 0757, Until Sun04/06/25 at 1429, Routine, Anesthesia Intraprocedure Given 04/06/2025 11:57 AM EST 2 g Given 04/06/2025 7:57 AM EST 2 g dexamethasone (Decadron) injection Intravenous, As needed, Starting on Sun04/06/25 at 0757, Until Sun04/06/25 at 1429, Routine, Anesthesia Intraprocedure Given 04/06/2025 7:57 AM EST 8 mg dexmedetomidine (Precedex) 100 MCG/ML concentrated solution Intravenous, As needed, Starting on Sun04/06/25 at 0859, Until Sun04/06/25 at 1429, Routine, Anesthesia Intraprocedure Given 04/06/2025 12:31 PM EST 8 mcg Given 04/06/2025 9:30 AM EST 8 mcg Given 04/06/2025 9:10 AM EST 8 mcg ePHEDrine Sulfate (Akovaz) injection Intravenous, As needed, Starting on Sun04/06/25 at 0750, Until Sun04/06/25 at 1429, Routine, Anesthesia Intraprocedure Given 04/06/2025 12:47 PM EST 5 mg Given 04/06/2025 10:28 AM EST 5 mg Given 04/06/2025 7:50 AM EST 5 mg fentaNYL (Sublimaze) injection Intravenous, As needed, Starting on Sun04/06/25 at 0749, Until Sun04/06/25 at 1429, Routine, Anesthesia Intraprocedure Given 04/06/2025 12:33 PM EST 50 mcg Given 04/06/2025 8:11 AM EST 50 mcg Given 04/06/2025 8:09 AM EST 50 mcg HYDROmorphone PF (Dilaudid) injection Intravenous, As needed, Starting on Sun04/06/25 at 0825, Until Sun04/06/25 at 1429, Routine, Anesthesia Intraprocedure Given 04/06/2025 11:12 AM EST 0. 5 mg Given 04/06/2025 11:09 AM EST 0.5 mg Given 04/06/2025 9:21 AM EST 0.5 mg lactated Ringer's infusion Intravenous, Continuous PRN, Starting on Sun04/06/25 at 0730, Until Sun04/06/25 at 1429, Routine New Bag 04/06/2025 1:21 PM EST New Bag 04/06/2025 12:07 PM EST New Bag 04/06/2025 8:46 AM EST Lidocaine HCl prefilled syringe Buccal, As needed, Starting on Sun04/06/25 at 0749, Anesthesia Intraprocedure Given 04/06/2025 7:39 AM EST 100 mg nitroglycerin (Tridil) in D5W IV solution 100 mcg/mL Intravenous, As needed, Starting on Sun04/06/25 at 0814, Until Sun04/06/25 at 1429, Routine, Anesthesia Intraprocedure Given 04/06/2025 11:16 AM EST 50 mcg Given 04/06/2025 11:14 AM EST 50 mcg Given 04/06/2025 8:39 AM EST 100 mcg ondansetron (Zofran) injection Intravenous, As needed, Starting on Sun04/06/25 at 1313, Until Sun04/06/25 at 1429, Routine, Anesthesia Intraprocedure Given 04/06/2025 1:13 PM EST 4 m g propofol (Diprivan) injection Intravenous, As needed, Starting on Sun04/06/25 at 0749, Until Sun04/06/25 at 1429, Routine, Anesthesia Intraprocedure Given 04/06/2025 7:39 AM EST 120 mg rocuronium (ZeMuron) injection Intravenous, As needed, Starting on Sun04/06/25 at 0739, Until Sun04/06/25 at 1429, Routine, Anesthesia Intraprocedure Given 04/06/2025 11:45 AM EST 20 mg Given 04/06/2025 11:25 AM EST 20 mg Given 04/06/2025 11:21 AM EST 10 mg sugammadex (Bridion) 100 MG/ML injection Intravenous, As needed, Starting on Sun04/06/25 at 1400, Until Sun04/06/25 at 1429, Routine, Anesthesia Intraprocedure Given 04/06/2025 2:00 PM EST 300 mg documented in this encounter Additional Health [...] documented as of this encounter Care Teams Supervisor/Port Director Relationship Specialty Start Date End Date Jatinder Clifford MD PCP - General Family Medicine 11/05/24 documented as of this encounter
--- OUTSIDE RECORDS SUMMARY | 2025-04-06 07:30 | XMS_ITS | Encounter Summary ---
Author Organization Healthcare Address [address] 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 Procedures TX ESOPHAGECTOMY DISTAL 2/3 W/LAPAROSCOPIC MOBLJ TX LAP, SURG JEJUNOSTOMY TX EDG INTRALUMINAL TUBE/CATHETER INSERTION TX BRONCHOSCOPY,DIAGNOSTIC RODERICK ROMERO ESOPHAGECTOMY RODERICK ROMERO ESOPHAGECTOMY RODERICK ROMERO ESOPHAGECTOMY RODERICK ROMERO ESOPHAGECTOMY Everett Beyer, DO [address] [address] Phone: tel: fax: [facility] [address] [place] [address] Phone: tel: Referral ID Status Reason Start Date Expiration Date Visits Re quested Visits Authorized [id number] 1 4 Encounter Details Date Type Department Care Team (Late st Contact Info) Description 04/06/2025 7:30 AM EST - 04/06/2025 2:00 PM EST Surgery [facility] [address] [place] [id number] Everett Beyer, DO [address] [address] RODERICK ROMERO ESOPHAGECTOMY [25195 (CPT ) +3 more] Surgery Details Date/Time Status Location OR Service Patient Class Case Class Case Type Trauma Case? 04/06/2025 7:30 AM Posted [facility] 15 Cardiothoracic Surgery Surgery Admit E1 - Elective (Do not proceed without financial clearance) Panel 1 Procedure LRB Anes Op Region Wound Class Comments RODERICK ROMERO ESOPHAGECTOMY N/A General Abdomen Class II/ Clean Contaminated Surgeon Surgeon Role Service Panel Everett Beyer, Primary Cardiothoracic Surge ry 1 Mario Alberto Franklin MD Resident - Assisting 1 Celestino Mccauley DO Resident - Assisting 1 documented in this [...] any time in the past 12 [facility], were you homeless or living in a group home (including now)? No 04/07/2025 [facility] Utilities Answer Date Recorded In the past 12 months has cicay[employer], gas, oil, or water [employer] threatened to shut off services in your home? No 04/07/2025 Sex and Gender Information Value Date Recorded Sex Assigned at Not on file Legal Sex Male 4:15 PM EDT Gender Identity Not on file Sexual Orientation Not on file documented as of this encounter Last Filed Vital Signs Vital Sign Reading Time Taken Comments Blood Pressure 139/66 04/06/2025 6:35 AM EST Pulse 56 04/06/2025 6:33 AM EST Temperature 36.4 C (97.6 F) 04/06/2025 6:33 AM EST Respiratory Rate 16 04/06/2025 6:33 AM EST Oxygen Saturation 95% 04/06/2025 6:35 AM EST Inhaled Oxygen Concentration - - Weight 106 kg (234 lb 5.6 oz) 04/06/2025 6:33 AM EST Height - - Body Mass Index 28.26 04/10/2025 8:18 PM EST documented in this encounter Functional Status documented as of this encounter Mental Status * Question Answer Entry Date Author Precautions Environmental surveillance 04/06/2025 7:0 0 AM EST Carlene Goode RN documented in this encounter Discharge Instructions [...] Clinic discharge # - For urgent questions/concerns: [facility] hotline: , option 4 - ask for the thoracic surgeon rehab consultant. documented in this encounter Medications at Time of Discharge acetaminophen (Tylenol) 160 MG/5ML solution 30 mL by Per J Tube route every 6 hours. 1200 mL 5 armodafinil (Nuvigil) 200 MG tablet Take 1 tablet by mouth daily. aspirin 81 MG chewable tablet Chew 1 tablet daily. 90 tablet 5 Boost VHC (Boost) VHC liquid 237 mL by Per PEG Tube route 4 times a day. 15517 mL 5 5 06/15/19 26 buPROPion XL (Wellbutrin XL) 300 MG 24 hr tablet Take 1 tablet by mouth daily. Do not crush, chew, or split. Feeding Supplies [facility] Please send months supply of gravity bags [...] needed for nausea or vomiting. 5 05/11/20 documented as of this encounter Miscellaneous Notes [...] a 70 y.o. male who presented to [facility] on 04/06/2025 for surgical intervention of esophageal cancer. On 04/06/2025 the patient was taken to the operating room to undergo minimally invasive Madison Romero esophagectomy, J tube placement, takedown of [...] List PAUSE taking these medications * Boost [facility] liquid Wait to take this until your [...] not crush, chew, or split. Feeding Supplies [facility] Please send months supply of gravity bags [...] medications were sent to [facility] -[place], [place] - [address] [facility] [address], [facility] [address] isosource 1.5 Piotr/mL liquid These medications were sent to [facility] - [place], [place] - [address] [facility] [id number] acetaminophen 160 MG/5ML solution ibuprofen 100 MG/5ML [...] Clinic discharge # - For urgent questions/concerns: [facility] hotline: , option 4 - ask for the thoracic surgeon rehab consultant. Outpatient Follow-Up No future appointments. Test Results [...] Note Edwin Cook 70 y.o. male CSN: [id number] Admission: 04/06/2025 5:25 AM Primary Problem: Esophageal cancer Primary Auto Detailer: Primary Caregiver: Self Assistance Available at Discharge: Current Outpatient/Agency/Support Group: infusion therapy, home Availability of Care Givers (#Hours): 24 hours Family/Auto Detailer(s) Willingness Assessed to care for patient at home: Yes Housing Circumstances-Z Codes: Housing Circumstances (select all that apply): None Applicable Patient Referred to Financial or Community Resources: Financial Resources: (n/a) Discharge Facility/Level of Care Needs: Discharge Facility/Level of Care Needs: 1-Home or Self Care Patient's Choice of Community Agency(s): Patient's Choice of Community Agency(s): [facility] Patient/Family Anticipated Services at Transition: Patient/Family Anticipated Services at Transition: durable medical equipment DME/Equipment Needed after Discharge: Equipment Currently Used at Home: Cpap Equipment Needed After Discharge: other (see comments) (TF pump and supplies) Readmission Within the Last 30 Days: Readmission Within the Last 30 Days: no previous admission in last 30 days Medicare Documentation: Medicare Second Notice?: Yes Date Second Notice Completed: 11/26/25 Time Second Notice Completed: 941 Medicare Second Notice Recieved By: patient and Follow-up: [place] [id number] Follow up for home TF supplies Discharge Transportation: Transportation Anticipated: family or friend will provide Transportation Home at Discharge: Family/Friend will Provide Follow Up Transport: Transportation Needed to Follow up Appoinments: Family/Friend will Provide Additional Comments: Per primary team patient is medically ready for discharge. TF [facility]. Rep will come to bedside for teaching [...] completed, documentation andcharges were entered. History/Background Information Ediwn Cook is a 70 y.o. male 8 [...] results found for the past 14 days [place] Coma Scale Score: [place] Coma Scale Score: 15 Direction Following: Follows [...] RN/Team Plan / Recommendations F/u Imaging: MBS Gunstock Spray Unit Adjuster Goals: Consume safest, least restrictive PO diet [...] Review Outcome: Ongoing, Progressing Flowsheets (Taken 04/14/2025 6639) Progress: improving Plan of Care Reviewed With: [...] Verified Pressure Injury Stage: Deep Tissue Injury Valet Pressure Injury: Yes PI Medical De... Assessments [...] was removed, consistent with HAPI DTI d/t senior medical billing specialist, polymem and allevyn applied, staff have also placed a tubing stabilizer Wound Team Plan: Wound care will follow up at regular intervals while inpatient; bedside nursing tofollow wound care recommendations as ordered and please re- consult sooner for new changes or concerns prior to follow up. LEEANNE Arambula 04/14/2025 3:32 PM * Care Plan - Domenico Buckley RN - 04/14/2025 3:31 PM EST Problem: Skin Injury Risk Increased Goal: Skin Health and Integrity Outcome: Ongoing, Progressing Intervention: Optimize Skin Protection Flowsheets (Taken 04/14/2025 1531) Skin Protection: silicone foam dressing in place Patient evaluated by [facility] nurse, individualized recommendations placed and care plan interventions updated; see wound care note for details regarding recommendations to support optimal wound healing. * Progress Notes - Mario Alberto Franklin MD - 04/14/2025 8:06 AM EST Images from the original note were not included. [facility] Department of Surgery Section of [...] 04/12/25 18504/12/25 1900 - 04/13/25 0659 04/13/25 0700 - 04/13/25 1859 04/13/25 1900 - 04/14/25 0659 04/14/25 0700 - [...] from last 7 days Lab Units 04/14/25 0334 04/13/25 0525 04/12/25 0423 HEMOGLOBIN g/dL 11.8* 12.9* 12.0* HEMATOCRIT % 34.8* 37.4* 35.6* INR Cr Results from last 7 days Lab Units 04/14/25 0334 04/13/25 0525 04/12/25 0423 CREATININE mg/dL 0.66* 0.57* 0.59* Medications [...] Note Edwin Cook 70 y.o. male CSN: [id number] Room/Bed 119/119A Nutrition evaluation type: follow-up Reason for evaluation: Hospital course: 70-year-old male with PMH of Crohn's Disease, Hypothyroidism, HLD, [place], GERD, tobacco use, obesity, esophageal cancer, CVA, and TIAs who underwent Madison Romero Esophagectomy with Thoracic Surgery. Full list [...] (Room air) O2 Delivery Method: Nasal cannula Demetrio Coma [...] (BMI 30-34.9) Weight History: reported UBW: 278# Vall[place] Body Weight (kg): 80.9 Percent Valliant Body Weight: 117 Adjusted Body Weight (kg): 86.7 Estimated Needs: Kcal/ K-27 Kcal Provided: 9651-1576 Kcal Needs Based On: Adjusted weight Gm [...] Education Provided: Will monitor Pertinent home medications: Faith needs: Nutrition Focused Physical Exam: Physical exam [...] Care Review Outcome: Ongoing, Progressing Flowsheets (Taken 04/13/20251117) Progress: improving Plan of Care Reviewed With: patient Goal: Patient-Specific Goal (Individualized) Outcome: Ongoing, Progressing Goal: Absence of Hospital-Acquired Illness or Injury Outcome: Ongoing, Progressing Goal: Optimal Comfort and Wellbeing Outcome: Ongoing, Progressing Intervention: Monitor Pain and Promote Comfort Flowsheets (Taken 04/13/20251117) Pain Management Interventions: care clustered Problem: Infection Goal: Absence of Infection Signs and Symptoms Outcome: Ongoing, Progressing Intervention: Prevent or Manage Infection Flowsheets (Taken 04/13/20251117) Infection Management: aseptic technique maintained Fever Reduction/Comfort Measures: lightweight bedding Isolation Precautions: precautions maintained Problem: Fall Injury Risk Goal: Absence of Fall and Fall-Related Injury Outcome: Ongoing, Progressing Intervention: Identify and Manage Contributors Flowsheets (Taken 04/13/2025 111) Medication Review/Management: medications reviewed Self-Care Promotion: independence encouraged Intervention: Promote Injury-Free Environment Flowsheets (Taken 04/13/2025 1118) Safety Promotion/Fall Prevention: activity supervised Problem: Surgery [...] Manage Fluid and Electrolyte Balance Flowsheets (Taken 04/13/2025 111) Fluid/Electrolyte Management: electrolyte supplement initiated Goal: Blood [...] Monitor and Manage Urinary Retention Flowsheets (Taken 04/13/2025 111) Urinary Elimination Promotion: frequent voiding encouraged Goal: Effective Oxygenation and Ventilation Outcome: Ongoing, Progressing Intervention: Optimize Oxygenation and Ventilation Flowsheets (Taken 04/13/20251117) Cough And Deep Breathing: done independently per patient * Progress Notes - Maria Alejandra Carpio RN - 04/13/2025 11:03 AM EST Case Management Adult Progress Note Edwin Cook 70 y.o. male CSN: [id number] Admission: 04/06/2025 5:25 AM Primary Problem: Esophageal cancer Anticipated Discharge Date: 1-2 days Additional Comments: LEEANNE RODRIGUEZ reviewed chart and met with primary team to discuss plan of care. Patient is scheduled for UGI today and is not medically ready for discharge at this time. LEEANNE RODRIGUEZ will continue to follow. Maria Alejandra Carpio RN * Progress Notes - Lazarus Weaver - 04/13/2025 7:31 AM EST Images from the original note were not included. [facility] Department of Surgery Section of Thoracic Surgery ICU Progress Note 04/13/25 Edwin Cook History of Present Illness Edwin Cook is a 70 y.o. male 7 Days Post-Op from minimally invasive Madison Romero esophagectomy and j-tube insertion. Procedures this admission 04/06/2025: Bronch, EGD with NGT insertion, Minimally invasive Madison Romero esophagectomy, Take down of gastrostomy tube, [...] Weaver, MS4 Thoracic Surgery Cosigned by Everett Beyer, DO at 04/15/2025 8:38 AM EST Associated attestation - Everett Beyer, - 04/15/2025 8:38 AM EST I saw and evaluated the patient with the medical/MILK ROUTE SUPERVISOR/PA student. I discussed the case with the medical/MILK ROUTE SUPERVISOR/PA student and agree with the findings and [...] Manage Infection Flowsheets (Taken 04/11/20251999 by Daily Romo, RN) Fever Reduction/Comfort Measures: lightweight bedding lightweight [...] from the original note were not included. [facility] Department of Surgery Section of Thoracic Surgery ICU Progress Note 04/12/25 Edwin Cook History of Present Illness Edwin Cook is a 70 y.o. male 6 Days Post-Op from minimally invasive Roderick Romero [...] Results from last 7 days Lab Units 04/12/25 0423 04/11/25 0351 04/10/25 0043 HEMOGLOBIN g/dL 12.0* 12.7* 12.7* HEMATOCRIT % 35.6* 36.7* 36.5* INR Cr Results from last 7 days Lab Units 04/12/25 0423 04/11/25 0351 04/10/25 0043 CREATININE mg/dL 0.59* 0.59* [...] saw and evaluated the patient with the medical/MILK ROUTE SUPERVISOR/PA student. I discussed the case with the medical/MILK ROUTE SUPERVISOR/PA student and agree with the findings and plan as documented. I personally performed the Examand Medical Decision Making. Attending Addendum: Patient interviewed and examined personally and with the resident/fellow/BIAS CUTTING MACHINE OPERATOR/medical student. I reviewed the patient's history, exam, [...] tube tomorrow. UGI tomorrow. Sona Kaur MD clinical business analyst Thoracic Surgery * Care Plan - Daily [...] Position: weight shifting Taken 04/11/20251999 by Daily Romo, RN Skin Protection: incontinence pads utilized transparent [...] Optimize Oxygenation and Ventilation Flowsheets Taken 04/12/2025 by Jose Reyes Activity Management: up in chair Taken 04/11/20251999 by Daily Romo RN Airway/Ventilation Management: airway patency maintained pulmonary hygiene promoted oxygen therapy provided Head of Bed (HOB) Positioning: HOB flat Cough And Deep Breathing: done independently per patient * Progress Notes - Lazarus Weaver - 04/11/2025 9:35 AM EST Images from the original note were not included. [facility] Department of Surgery Section of Thoracic Surgery ICU Progress Note 04/11/25 Edwin Cook History of Present Illness Edwin Cook is a 70 y.o. male 5 Days Post-Op from minimally invasive Roderick Romero esophagectomy and j-tube insertion. Procedures this admission 04/06/2025: Bronch, EGD with NGT insertion, Minimally invasive Madison Romero esophagectomy, Take down of gastrostomy tube, [...] saw and evaluated the patient with the medical/MILK ROUTE SUPERVISOR/PA student. I discussed the case with the medical/MILK ROUTE SUPERVISOR/PA student and agree with the findings and plan as documented. I personally performed the Examand Medical Decision Making. Attending Addendum: Patient interviewed and examined personally and with the resident/fellow/BIAS CUTTING MACHINE OPERATOR/medical student. I reviewed the patient's history, exam, diagnosis, and the plan of treatment. I agree with the plan of care as follows: overall doing well. Encouraged ongoing ambulation. Will continue to increase tube feeds to goal. He is passing gas but no stool yet. If no bowel movement as tube feeds increase we willincrease his bowel regimen. UGI on Sunday. Sona Kaur MD clinical business analyst Thoracic Surgery * Care Plan - Marlo Herrera RN - 04/11/2025 8:00 AM EST Problem: Adult Inpatient Plan of Care Goal: Absence of Hospital-Acquired Illness or Injury Intervention: Identify and Manage Fall Risk Flowsheets (Taken 04/11/2025 111) Safety Promotion/Fall Prevention: activity supervised assistive device/personal items within reach clutter-free environment maintained mobility aid in reach lighting adjusted fall prevention program maintained nonskid shoes/slippers when out of bed room organization consistent safety round/check completed Intervention: Prevent Skin Injury Flowsheets (Taken 04/11/2025 111) Body Position: weight shifting Skin Protection: incontinence pads utilized Intervention: Prevent and Manage VTE (Venous Thromboembolism) Risk Flowsheets (Taken 04/11/2025 111) VTE Prevention/Management: medication Intervention: Prevent Infection Flowsheets (Taken 04/11/2025 111) Infection Prevention: cohorting utilized environmental surveillance performed [...] Intervention: Optimize Oxygenation and Ventilation Flowsheets (Taken 04/11/20251117) Activity Management: up in chair * Care Plan - Marlo Platt RN - 04/11/2025 2:32 AM EST Problem: Adult Inpatient Plan of Care Goal: Plan of Care Review Outcome: Ongoing, Progressing Flowsheets Taken 04/10/2025 1201 by Isis Grewal RN Progress: improving Plan of Care Reviewed With: patient Taken 04/07/2025 06 by Bharti Cobian RN Outcome Evaluation: pt [...] Manage Bleeding Flowsheets (Taken 04/07/2025622 by Bharti Cobian RN) Bleeding Management: dressing [...] Manage Pain Flowsheets Taken 04/10/20251952 by Marlo Platt, sand mill operator facing sand Interventions: medication (see MAR) Taken 04/07/2025622 by Bharti Cobian RN Diversional Activities: television Goal: Nausea and Vomiting Relief Outcome: Ongoing, Progressing Intervention: Prevent or Manage Nausea and Vomiting Flowsheets (Taken 04/07/2025 06 by Bharti Cobian RN) Nausea/Vomiting Interventions: cool cloth applied Goal: Effective Urinary Elimination Outcome: Ongoing, Progressing Intervention: Monitor and Manage Urinary Retention Flowsheets (Taken 04/07/2025 0623 by Bharti Cobian RN) Urinary Elimination Promotion: catheter patency maintained Goal: Effective Oxygenation and Ventilation Outcome: Ongoing, Progressing Intervention: Optimize Oxygenation and Ventilation Flowsheets Taken 04/11/2025 0200 by Jose Reyes Activity Management: up in chair Taken 04/10/20251999 by Marlo Platt RN Head of Bed (HOB) Positioning: HOB elevated Cough And Deep Breathing: done independently per patient Taken 04/07/2025 06 by Bharti Cobian [...] off medication Intervention: Prevent Infection Flowsheets (Taken 04/07/2025620 [...] Isis Grewal RN Isolation Precautions: protective Taken 04/07/2025620 by [...] Manage Bleeding Flowsheets (Taken 04/07/2025622 by Bharti Cobian RN) Bleeding Management: dressing [...] from the original note were not included. [facility] Department of Surgery Section of Thoracic Surgery ICU Progress Note 04/10/25 Edwin Cook History of Present Illness Edwin Cook is a 70 y.o. male 4 Days Post-Op from minimally invasive Madison Romero esophagectomy and j-tube insertion. Procedures this admission 04/06/2025: Bronch, EGD with NGT insertion, Minimally invasive Madison Romero esophagectomy, Take down of gastrostomy tube, [...] - 04/09/25 0659 04/09/25 0700 - 04/09/25 1859 04/09/25 1900 [...] interviewed and examined personally and with the resident/fellow/BIAS CUTTING MACHINE OPERATOR/medical student. I reviewed the patient's history, exam, diagnosis, and the plan of treatment. I agree with the plan of care as follows: overall doing well. Pain is there but improving. He has been ambulating. Will increase tube feeds today. Sona Kaur MD clinical business analyst Thoracic Surgery * Care Plan - Niesha [...] from the original note were not included. [facility] Department of Surgery Section of Thoracic Surgery ICU Progress Note 04/09/25 Edwin Cook History of Present Illness Edwin Cook is a 70 y.o. male 3 Days Post-Op from minimally invasive Madison Romero esophagectomy and j-tube insertion. Procedures this admission 04/06/2025: Bronch, EGD with NGT insertion, Minimally invasive Madison Romero esophagectomy, Take down of gastrostomy tube, [...] Note Edwin Cook 70 y.o. male CSN: [id number] Admission: 04/06/2025 5:25 AM Primary Problem: Esophageal [...] turned Taken 04/07/2025 1000 by Mario Alberto Price, RN Skin Protection: incontinence pads utilized Intervention: Prevent and Manage VTE (Venous Thromboembolism) Risk Flowsheets (Taken 04/09/2025 0800) VTE Prevention/Management: medication Intervention: Prevent Infection Flowsheets (Taken 04/07/2025620 [...] and Manage Urinary Retention Flowsheets (Taken 04/07/2025 0623 by Bharti Cobian, LEEANNE) Urinary Elimination Promotion: catheter patency maintained Goal: [...] Absence of Hospital-Acquired Illness or Injury 04/09/2025 by Niesha Huerta Outcome: Ongoing, Progressing 04/08/2025 232 by Niesha Huerta Outcome: Ongoing, Progressing 04/08/2025 232 by Niesha Huerta Outcome: Ongoing, Progressing Goal: Optimal Comfort and Wellbeing 04/09/2025 014 by Niesha Huerta Outcome: Ongoing, Progressing 04/08/2025 232 by Niesha Huerta Outcome: Ongoing, Progressing 04/08/2025 232 by Niesha Huerta Outcome: Ongoing, Progressing Problem: Infection Goal: Absence of Infection Signs and Symptoms 04/09/2025 014 by Niesha Huerta Outcome: Ongoing, [...] Outcome: Ongoing, Progressing Goal: Effective Bowel Elimination 04/09/2025148 by Niesha Huerta Outcome: Ongoing, Progressing 04/08/20252321 by Niesha Huerta Outcome: Ongoing, Progressing 04/08/20252320 by Niesha Huerta Outcome: Ongoing, Progressing Goal: Fluid and Electrolyte Balance 04/09/2025 014 by Niesha Huerta Outcome: Ongoing, Progressing 04/08/20252321 by Niesha Huerta Outcome: Ongoing, Progressing 04/08/20252320 by Niesha Huerta Outcome: Ongoing, Progressing Goal: Blood Glucose Level Within Target Range 04/09/2025 014 by Niesha Huerta Outcome: Ongoing, Progressing 04/08/2025 232 by Niesha Huerta Outcome: Ongoing, Progressing 04/08/2025 2321 by Niesha Huerta Outcome: Ongoing, Progressing Goal: Optimal Pain Control and Function 04/09/2025 014 by Niesha Huerta Outcome: Ongoing, Progressing 04/08/2025 2322 by Niesha Huerta Outcome: Ongoing, Progressing 04/08/2025 2321 by Niesha Huerta Outcome: Ongoing, Progressing Goal: Nausea and Vomiting Relief 04/09/2025 0149 by Niesha Huerta Outcome: Ongoing, Progressing 04/08/2025 2322 by Niesha Huerta Outcome: Ongoing, Progressing 04/08/2025 2321 by Niesha Huerta Outcome: Ongoing, Progressing Goal: Effective Urinary Elimination 04/09/2025 014 by Niehsa Huerta Outcome: Ongoing, Progressing 04/08/2025 2322 by Niesha Huerta Outcome: Ongoing, Progressing 04/08/2025 2321 by Niesha Huerta Outcome: Ongoing, Progressing Goal: Effective Oxygenation and Ventilation 04/09/2025 014 by Niesha Huerta Outcome: Ongoing, Progressing 04/08/2025 2322 by Niesha Huerta Outcome: Ongoing, Progressing 04/08/2025 2321 by Niesha Huerta Outcome: Ongoing, Progressing * Significant Event - Holly Huang APRN, DNP - 04/08/2025 8:34 AM EST Pt had no acute events overnight, remains neurologically and hemodynamically stable. Received PCU orders. No further ICU needs at this time. After a conversation with the primary team, [facility] will sign off. Thank you for allowing us to participate in the care of this patient. Please feel free to consult us for any further needs. Holly Huang APRN, DNP * Progress Notes - Misha Aguilera DO - 04/08/2025 8:28 AM EST Images from the original note were not included. [facility] Department of Surgery Section of Thoracic Surgery ICU Progress Note 04/08/25 Edwin Cook History of Present Illness Edwin Cook is a 70 y.o. male 2 Days Post-Op from Roderick Romero esophagectomy and j-tube insertion. Procedures this admission 04/06/2025: Bronch, EGD with NGT insertion, Minimally invasive Madison Romero esophagectomy, Take down of gastrostomy tube, [...] Drain (mL) 04/06/25 07 - 04/06/25 18504/06/25 190 - 04/07/25 0659 04/07/25 07 - 04/07/25 18504/07/25 190 - 04/08/25 0659 04/08/25 07 - 04/08/25 0829 Closed/Suction Drain Right;Lateral Pleural [...] 7 days Lab Units 04/08/25 0158 04/07/25 00504/06/25 1409 HEMOGLOBIN g/dL 12.5* 10.9* 12.9* HEMATOCRIT % 36.9* 32.7* 38.5* INR Cr Results from last 7 days Lab Units 04/08/2515704/07/255304/06/25 1409 CREATININE mg/dL 0.62* 0.70 0.71 Medications [...] Flowsheets (Taken 04/07/2025 0800 by Mario Alberto Price RN) Patient/Family-Specific Goals [...] Intervention: Provide Person-Centered Care Flowsheets (Taken 04/07/2025 0621 by Mango, Bharti A, RN) Trust Relationship/Rapport: care explained choices provided [...] Manage Bleeding Flowsheets (Taken 04/07/2025622 by Bharti Cobian RN) Bleeding Management: dressing [...] Review Outcome: Ongoing, Progressing Flowsheets Taken 04/08/2025 045 by Niesha Huerta Plan of Care Reviewed With: patient Taken 04/07/2025 06 by Bharti Cobian RN Progress: improving Goal: [...] Care Review Outcome: Ongoing, Progressing Flowsheets (Taken 04/07/2025620 by Bharti Cobian RN) Progress: improving Outcome [...] devices) on Intervention: Prevent Infection Flowsheets (Taken 04/07/2025620 by Bharti Cobian, RN) Infection Prevention: hand [...] Isolation Precautions: protective Taken 04/07/2025620 by Bharti Cboian RN Infection Management: aseptic technique maintained Fever [...] Note Edwin Cook 70 y.o. male CSN: [id number] Room/Bed 218/218A Nutrition evaluation type: assessment Reason for evaluation: provider consult Hospital course: 70-year-old male with PMH of Crohn's Disease, Hypothyroidism, HLD, [place], GERD, tobacco use, obesity, esophageal cancer, CVA, and TIAs who underwent Roderick Romero Esophagectomy with Thoracic Surgery. Full list of procedures on 04/06: Bronch, EGD with NGT insertion, Minimally invasive Madison Romero esophagectomy, Take down of gastrostomy tube, [...] (BMI 30-34.9) Weight History: reported UBW: 278# [place] Body Weight (kg): 80.9 Percent [place] Body Weight: 129 Adjusted Body Weight (kg): 86.7 Estimated Needs: Kcal/ K-27 Kcal Provided: 3613-5051 Kcal Needs Based On: Adjusted weight Gm Protein/ Kg : 1.2-1.5 Protein Provided: 104-130 Protein Needs Based On: Adjusted weight Metabolic Cart Study Results: Current Nutrition Intake: Diet Order: NPO Diet Experience and Nutrition History: Diet Education Provided: Will monitor Pertinent home medications: Faith needs: Nutrition Focused Physical Exam: Physical exam [...] labetalol OR labetalol * Progress Notes - RodríguezCasandra APRN - 04/07/2025 12:18 PM EST Images from the original note were not included. [facility] Department of Surgery Section of Thoracic Surgery ICU Progress Note 04/07/25 Edwin Cook History of Present Illness Edwin Cook is a 70 y.o. male 1 Day Post-Op from Roderick Romero esophagectomy and j-tube insertion. Procedures [...] Anemia Thrombocytopenia (CMS/HCC) Plan: - Collaborate with [facility] - Keep chest tube - on waterseal [...] Note Edwin Cook 70 y.o. male CSN: [id number] Admission: 04/06/2025 5:25 AM Primary Problem: Esophageal cancer Automobile Body Worker reviewed chart and spoke with the patient at bedside to complete this Initial Case Management Assessment. PCP: Jatinder Clifford MD Emergency Contact: Extended Emergency Contact Information Primary Emergency Contact: Brandi Cook Mobile Relation: Spouse Preferred language: [place] [employer] Paralegal needed? No Insurance: Primary Visit Coverage Payer Plan Sponsor Code Group Number Group Name [facility] [employer] [facility] [employer] [id number] Primary Visit Coverage Subscriber Subscriber ID Subscriber Name Subscriber N Subscriber Address [id number] Edwin Cook [id number] [place] [address] Patient information: Primary Caregiver: Self Accompanied by/Relationship: Support System: Immediate family Daily Living Activities: Functional Status: Independent Living Arrangements: Spouse/Significant other Type of Residence: Private residence, Multi Level [address] [place] [address] Current DME: Equipment Currently Used at Home: [...] DME Provider: n/a Living Will/Advance Directive/Power of Ditch Rider /Guardian: Advance Directive: Patient does not have [...] DME/HH/HD/O2. PCP is Jatinder Clifford. Patient has [employer] Medicare insurance and uses [facility] pharmacy. will assist and transport at discharge. Patient current with [facility] - will plan to use them at [...] Esophageal cancer HX of esophageal cancer S/p Roderick Romero Esophagectomy with TSS on 04/06 Strict [...] to get up to chair today. GCS: [place] Coma Scale Score: 15 Review of Systems [...] Admission: Yes HX of esophageal cancer S/p Madison Romero Esophagectomy with TSS on 04/06 Strict [...] MG Glucose control: GLU: 107 mg/dL (04/07 0054) Spontaneous breathing trials: Bowel regimen (see GI [...] VTE (Venous Thromboembolism) Risk Flowsheets (Taken 04/07/2025 06) VTE Prevention/Management: bilateral lower extremity SCDs (sequential [...] Breathing: done independently per patient Taken 04/07/2025 0600 Activity Management: activity adjusted per tolerance activity [...] 04/07/2025620 Skin Protection: incontinence pads utilized Taken 04/07/2025 06 Body Position: right turned Intervention: Prevent and Manage VTE (Venous Thromboembolism) Risk Flowsheets (Taken 04/07/2025 06) VTE Prevention/Management: bilateral lower extremity SCDs (sequential compression devices) on Intervention: Prevent Infection Flowsheets (Taken 04/07/2025 06) Infection Prevention: hand hygiene promoted personal protective [...] Intervention: Prevent or Manage Infection Flowsheets (Taken 04/07/2025 06) Infection Management: aseptic technique maintained Fever Reduction/Comfort [...] and Manage Fall Risk Flowsheets (Taken 04/06/2025 1923) Safety Promotion/Fall Prevention: activity supervised Intervention: Prevent Skin Injury Flowsheets (Taken 04/06/2025 1800) Body Position: turned heels elevated Intervention: Prevent and Manage VTE (Venous Thromboembolism) Risk Flowsheets (Taken 04/06/2025 1600) VTE Prevention/Management: bilateral SCDs (sequential compression devices) on Intervention: Prevent Infection Flowsheets (Taken 04/06/2025 192) Infection Prevention: cohorting utilized Goal: Optimal Comfort [...] Esophageal cancer HX of esophageal cancer S/p Roderick Romero Esophagectomy with TSS on 04/06 Strict [...] esophageal cancer, CVA, and TIAs who underwent Madison Romero Esophagectomy with Thoracic Surgery today. Full [...] Reviewed and otherwise non-contributory. Allergies: Allergies[6] GCS: [place] Coma Scale Score: 15 Review of Systems [...] Admission: Yes HX of esophageal cancer S/p Madison Romero Esophagectomy with TSS on 04/06 Strict [...] 1 tablet daily. 90 tablet 0 Boost [facility] (Boost) [facility] liquid 237 mL by Per PEG Tube route 4 times a day. 29660 mL 5 buPROPion XL (Wellbutrin XL) 300 [...] tablet Take 1 tablet by mouth daily. ovbkqgmb-bbsomqtfy-lkttxhzhyeaxo (Maxitrol) 3.5-47317-2.1 ophthalmic suspension 2 times a day. omeprazole [...] TIME EACH DAY FOR PROSTATE Feeding Supplies [facility] Please send months supply of gravity bags [...] date: 1966 Quit date: 1999 Years since quittin.8 Passive exposure: Past Smokeless [...] a 70 y.o. 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 A 14-Polish J-tube was placed in the usual Seldinger fashion and anti-torsion stitch was placed. We then turned our attention back to the stomach and formation of the gastric conduit. The stomach was approached at the level of the nunam [place]qua's feet using a vascular stapler. The gastric conduit was then formed with sequential firings of thepurple Endo-SEEMA stapler. Once the conduit was from the specimen, the specimen was used for retraction and the esophagus was dissected well into the mediastinum. A Johnnie drain was placed for ease of delivery [...] and divided with acurved-tip vascular stapler. The Mission drain was then delivered into the chest [...] with sequential firings of the purple Endo- SEEMA stapler. Chest was copiously irrigated with sterile [...] 04/06/2025 8:05 AM EST Date: 04/06/25 Location: [place] OR Name: Dino Cook : 1955, Diagnoses: Pre-op Diagnosis Malignant neoplasm of lower third of esophagus Post-op Diagnosis Malignant neoplasm of lower third of esophagus Procedure(s): Minimally invasive roderick romero esophagectomy Upper endoscopy Flexible bronchoscopy Attending Surgeon(s): * Everett Beyer - Primary Orthopedics Pediatric Physician(s): * Celestino Mccauley DO - Resident - [...] from the original note were not included. [facility] Department of Surgery Division of Thoracic Surgery [...] within the distal esophagus, no concerning areas loss prevention representative of metastasis Additional Testing: PFT 03/12/2025 [...] cancer Hypothyroidism Sleep apnea Stroke (CMS/HCC) 10/25/2024 [1] Family History Problem Relation Name [...] daily. aspirin, Chew 1 tablet daily. Boost [facility], 237 mL by Per PEG Tube [...] daily. (Patient not taking: Reported on 03/27/2025) gqtzjbli-hsisgxegz-ugysghraxxpzw, 2 times a day. * Preprocedure Instructions - Trisha Duron RN - 03/27/2025 3:06 PM EST Home Medication Instructions Current Medications Medication Instructions armodafinil (Nuvigil) 200 MG tablet Take morning of surgery aspirin 81 MG chewable tablet Take morning of surgery per Dr. Gore Boost [facility] (Boost) [facility] liquid Hold day of surgery buPROPion [...] Level 3 (ped way) Level 1 (Shuttle). [place] on the first floor of [facility]. You MUST have a responsible adult available for transport to and from hospital Visitation policy for the day of surgery reviewed Bring insurance card, photo ID, along with power of sports attorney, guardianship or advanced directives if applicable Do [...] [facility] Respiratory [address] [facility] [place] [address] Everett Beyer, DO [address] [facility] [facility] [address] [place] [address] Pending Results Name Type Priority Associated Diagnoses [...] UNSOLICITED RESULTS Routine 04/07/2025 1:19 PM EST TX CRITICAL CARE, E/M 30-74 MINUTES Routine 04/07/2025 [...] 1 VIEW STAT 04/06/2025 2:57 PM EST TX CRITICAL CARE, E/M 30-74 MINUTES Routine 04/06/2025 [...] Malignant neoplasm of lower third of esophagus TX BRONCHOSCOPY,DIAGNOSTI C 04/06/2025 7:14 AM EST Malignant neoplasm of lower third of esophagus TX EDG INTRALUMINAL TUBE/CATHETER INSERTION 04/06/2025 7:14 AM EST Malignant neoplasm of lower third of esophagus TX LAP, SURG JEJUNOSTOMY 04/06/2025 7:14 AM EST Malignant neoplasm of lower third of esophagus TX ESOPHAGECTOMY DISTAL 2/3 W/LAPAROSCOPIC MOBLJ 04/06/2025 7:14 [...] MD on 04/15/2025 7:23 AM Chu Davis BIAS CUTTING MACHINE OPERATOR IMG XR PROCEDURES Final Res ult * (ABNORMAL) Renal function panel (04/15/2025 3:24 AM EST) Glucose, Plasma 109(H) 74 - 99 mg/dL 04/15/2025 4:03 AM EST [facility] BUN, Plasma 17 8 - 23 mg/dL 04/15/2025 4:03 AM EST [facility] Creatinine, Plasma 0.71 0.70 - 1.20 mg/dL 04/15/2025 4:03 AM EST [facility] BUN/Creatinine Ratio 24 04/15/2025 4:03 AM EST [facility] Sodium, Plasma 137 136 - 145 mmol/L 04/15/2025 4:03 AM EST [facility] Potassium, Plasma 4.4 3.6 - 4.9 mmol/L 04/15/2025 4:03 AM EST [facility] Chloride, Plasma 101 97 - 107 mmol/L 04/15/2025 4:03 AM EST [facility] CO2, Plasma 26 22 - 29 mmol/L 04/15/2025 4:03 AM EST [facility] Anion Gap 10 6 - 16 mmol/L 04/15/2025 4:03 AM EST [facility] Total Calcium, Plasma 9.1 8.9 - 10.2 mg/dL 04/15/2025 4:03 AM EST [facility] Phosphorus, Plasma 4.2 2.5 - 4.5 mg/dL 04/15/2025 4:03 AM EST [facility] Albumin, Plasma 3.8 3.5 - 5.2 g/dL 04/15/2025 4:03 AM EST [facility] eGFRcr 98.1 mL/min/1.7 3m*2 04/15/2025 4:03 AM EST [facility] Comment:Reported eGFRcr in m L/min/1.73m2 is based the CKD-EPI 2020 equation that does not use a race coefficient. Blood Venous blood specimen / Unknown Venipuncture / Unknown 04/15/2025 3:24 AM EST 04/15/2025 3:34 AM EST Chu MXP4 Ryan BIAS CUTTING MACHINE OPERATOR LAB BLOOD ORDERABLES Final Result [facility] [address] [place] [address] * Magnesium, Plasma (04/15/2025 3:24 AM EST) Magnesium, Plasma 2.1 1.9 - 2.4 mg/dL 04/15/2025 4:03 AM EST [facility] Blood Venous blood specimen / Unknown Venipuncture / Unknown 04/15/2025 3:24 AM EST 04/15/2025 3:34 AM EST [employer] BIAS CUTTING MACHINE OPERATOR LAB BLOOD ORDERABLES Final Result [facility] [address] [place] [address] * (ABNORMAL) CBC W/O Differential (04/15/2025 3:24 AM EST) WBC Count 9.12 3.70 - 10.30 10*3/uL LAB HEMATOLOGY METHOD 04/15/2025 3:42 AM EST [facility] RBC Count 4.13(L) 4.60 - 6.10 10*6/uL LAB HEMATOLOGY METHOD 04/15/2025 3:42 AM EST [facility] HGB 13.9 13.7 - 17.5 g/dL LAB HEMATOLOGY METHOD 04/15/2025 3:42 AM EST [facility] HCT 40.2 40.0 - 51.0 % LAB HEMATOLOGY METHOD 04/15/2025 3:42 AM EST [facility] Platelet Count 224 155 - 369 10*3/uL LAB HEMATOLOGY METHOD 04/15/2025 3:42 AM EST [facility] MCV 97 79 - 98 fL LAB HEMATOLOGY METHOD 04/15/2025 3:42 AM EST [facility] MCH 33.7(H) 26.0 - 32.0 pg LAB HEMATOLOGY METHOD 04/15/2025 3:42 AM EST [facility] MCHC 34.6 30.7 - 35.5 g/dL LAB HEMATOLOGY METHOD 04/15/2025 3:42 AM EST [facility] RDW 12.3 11.5 - 14.5 % LAB HEMATOLOGY METHOD 04/15/2025 3:42 AM EST [facility] MPV 10.4 8.8 - 12.5 fL LAB HEMATOLOGY METHOD 04/15/2025 3:42 AM EST [facility] nRBC 0.0 <=0.0 per 100 WBCs LAB HEMATOLOGY METHOD 04/15/2025 3:42 AM EST [facility] Blood Venous blood specimen / Unknown Venipuncture / Unknown 04/15/2025 3:24 AM EST 04/15/2025 3:34 AM EST us Chu Davis BIAS CUTTING MACHINE OPERATOR LAB BLOOD ORDERABLES Final Result [facility] [address] [place] [address] * (ABNORMAL) POCT glucose meter (04/15/2025 12:01 AM EST) [facility] POCT Glucose 121(H) 74 - 99 mg/dL [...] for testing. Comment 04/15/2025 12:02 AM EST [facility] Grout Machine Operator ID Francheska Holloway 04/15/20 12:02 AM EST [facility] Device ID [id number] 04/15/2025 12:02 AM EST [facility] Specimen Type POC Capillary 04/15/2025 12:02 AM EST [facility] Blood Capillary blood specimen / Unknown 04/15/2025 12:01 AM EST 04/15/2025 12:02 AM EST Everett Beyer DO LAB POINT OF CARE TE ST DOCKED DEVICE UNSOLICITED RESULTS Final Result Performing Organization Address City/[facility]/ZIP Co de Phone Number [facility] [address] [place] [address] * POCT glucose meter (04/14/2025 4:55 PM EST) [facility] POCT Glucose 95 74 - 99 mg/dL 04/14/2025 5:01 PM EST [facility] Comment:Accuracy of [...] for testing. Comment 04/14/2025 5:01 PM EST [facility] Grout Machine Operator ID Nay Montero 04/14/2025 5:01 PM EST [facility] Device ID [id number] 04/14/2025 5:01 PM EST [facility] Specimen Type POC Capillary 04/14/2025 5:01 PM EST [facility]ALTH[facility]ARE LAB Blood Capillary blood specimen / Unknown 04/14/2025 4:55 PM EST 04/14/2025 5:01 PM EST us Everett Beyer DO LAB POINT OF CARE TE ST DOCKED DEVICE UNSOLICITED RESULTS Final Result Performing Organization Address City/[facility]/ZIP Co de Phone Number [facility] [address] [place] [address] * (ABNORMAL) POCT glucose meter (04/14/2025 12:01 PM EST) POCT Glucose 162(H) 74 - 99 mg/dL 04/14/2025 12:03 PM EST [facility] Comment:Accuracy of [...] Comment 04/14/2025 12:03 PM EST [facility]ALTH[facility]ARE LAB Grout Machine Operator ID Nay Montero 04/14/2025 12:03 PM EST [facility] Device ID [id number] 04/14/2025 12:03 PM EST [facility] Specimen Type POC Capillary 04/14/2025 12:03 PM EST [facility] Blood Capillary blood specimen / Unknown 04/14/2025 12:01 PM EST 04/14/2025 12:03 PM EST us Everett Beyer DO LAB POINT OF CARE TE ST DOCKED DEVICE UNSOLICITED RESULTS Final Result [facility] [address] [place] [address] * POCT glucose meter (04/14/2025 7:37 AM EST) POCT Glucose 98 74 - 99 mg/dL 04/14/2025 7:38 AM EST [facility] Comment:Accuracy of [...] Comment 04/14/2025 7:38 AM EST [facility]ALTH[facility]ARE LAB Grout Machine Operator ID Khoi Flores 04/14/2025 7:38 AM EST [facility] Device ID [id number] 04/14/2025 7:38 AM EST [facility]ALTH[facility]ARE LAB Specimen Type POC Capillary 04/14/2025 7:38 AM EST [facility] Blood Capillary blood specimen / Unknown 04/14/2025 7:37 AM EST 04/14/2025 7:38 AM EST Everett Beyer DO LAB POINT OF CARE TE ST DOCKED DEVICE UNSOLICITED RESULTS Final Result Performing Organization Address City/State/[facility] de Phone Number [facility] [address] [place] [address] * XR Chest 1 View (04/14/2025 6:31 [...] signing this report, I, the attending physician, ana I have personally reviewed the images/data for the aboveexamination(s) and agree with the final edited report. Drafted by Daja Marroquin DO on 04/14/2025 8:51 AM Final report signed by Rolan Avalos on 04/14/2025 10:14 AM us Chu Davis BIAS CUTTING MACHINE OPERATOR IMG XR PROCEDURES Final Res ult * (ABNORMAL) Renal function panel (04/14/2025 3:34 AM EST) Glucose, Plasma 115(H) 74 - 99 mg/dL 04/14/2025 4:14 AM EST [facility] BUN, Plasma 17 8 - 23 mg/dL 04/14/2025 4:14 AM EST [facility] Creatinine, Plasma 0.66(L) 0.70 - 1.20 mg/dL 04/14/2025 4:14 AM EST [facility] BUN/Creatinine Ratio 26 04/14/2025 4:14 AM EST [facility] Sodium, Plasma 139 136 - 145 mmol/L 04/14/2025 4:14 AM EST [facility] Potassium, Plasma 3.9 3.6 - 4.9 mmol/L 04/14/2025 4:14 AM EST [facility] Chloride, Plasma 104 97 - 107 mmol/L 04/14/2025 4:14 AM EST [facility] CO2, Plasma 24 22 - 29 mmol/L 04/14/2025 4:14 AM EST [facility] Anion Gap 11 6 - 16 mmol/L 04/14/2025 4:14 AM EST [facility] Total Calcium, Plasma 8.5(L) 8.9 - 10.2 mg/dL 04/14/2025 4:14 AM EST [facility] Phosphorus, Plasma 4.0 2.5 - 4.5 mg/dL 04/14/2025 4:14 AM EST [facility] Albumin, Plasma 3.2(L) 3.5 - 5.2 g/dL 04/14/2025 4:14 AM EST [facility] eGFRcr 100.3 mL/min/1.7 3m*2 04/14/2025 4:14 AM EST [facility] Comment:Reported eGFRcr in m L/min/1.73m2 is based the CKD-EPI 2020 equation that does not use a race coefficient. Blood Venous blood specimen / Unknown Venipuncture / Unknown 04/14/2025 3:34 AM EST 04/14/2025 3:43 AM EST [facility] BLOOD ORDERABLES Final Result Performing Organization Address City/[facility]/ZIP Co de Phone Number [facility] [address] [place] [address] * Magnesium, Plasma (04/14/2025 3:34 AM EST) Pathologist [facility] Magnesium, Plasma 2.0 1.9 - 2.4 mg/dL 04/14/2025 4:14 AM EST [facility] Blood Venous blood specimen / Unknown Venipuncture / Unknown 04/14/2025 3:34 AM EST 04/14/2025 3:43 AM EST [employer] BIAS CUTTING MACHINE OPERATOR LAB BLOOD ORDERABLES Final Result [facility] [address] [place] [address] * (ABNORMAL) CBC W/O Differential (04/14/2025 3:34 AM EST) WBC Count 8.82 3.70 - 10.30 10*3/uL LAB HEMATOLOGY METHOD 04/14/2025 3:56 AM EST [facility] RBC Count 3.58(L) 4.60 - 6.10 10*6/uL LAB HEMATOLOGY METHOD 04/14/2025 3:56 AM EST [facility] HGB 11.8(L) 13.7 - 17.5 g/dL LAB HEMATOLOGY METHOD 04/14/2025 3:56 AM EST [facility] HCT 34.8(L) 40.0 - 51.0 % LAB HEMATOLOGY METHOD 04/14/2025 3:56 AM EST [facility] Platelet Count 170 155 - 369 10*3/uL LAB HEMATOLOGY METHOD 04/14/2025 3:56 AM EST [facility] MCV 97 79 - 98 fL LAB HEMATOLOGY METHOD 04/14/2025 3:56 AM EST [facility] MCH 33.0(H) 26.0 - 32.0 pg LAB HEMATOLOGY METHOD 04/14/2025 3:56 AM EST [facility] MCHC 33.9 30.7 - 35.5 g/dL LAB HEMATOLOGY METHOD 04/14/2025 3:56 AM EST [facility] RDW 12.4 11.5 - 14.5 % LAB HEMATOLOGY METHOD 04/14/2025 3:56 AM EST [facility] MPV 10.5 8.8 - 12.5 fL LAB HEMATOLOGY METHOD 04/14/2025 3:56 AM EST [facility] nRBC 0.0 <=0.0 per 100 WBCs LAB HEMATOLOGY METHOD 04/14/2025 3:56 AM EST [facility] Blood Venous blood specimen / Unknown Venipuncture / Unknown 04/14/2025 3:34 AM EST 04/14/2025 3:43 AM EST us Chu Davis APRN LAB BLOOD ORDERABLES Final Result [facility] [address] [place] [address] * (ABNORMAL) POCT glucose meter (04/14/2025 12:40 AM EST) POCT Glucose 104(H) 74 - 99 mg/dL 04/14/2025 12:42 AM EST [facility] Comment:Accuracy of a glucos e result [...] for testing. Comment 04/14/2025 12:42 AM EST [facility] Grout Machine Operator ID Jadon Carreno 04/14/2025 12:42 AM EST [facility] Device ID [id number] 04/14/2025 12:42 AM EST [facility] Specimen Type POC Capillary 04/14/2025 12:42 AM EST [facility] Blood Capillary blood specimen / Unknown 04/14/2025 12:40 AM EST 04/14/2025 12:42 AM EST us Everett Beyer DO LAB POINT OF CARE TE ST DOCKED DEVICE UNSOLICITED RESULTS Final Result Performing Organization Address City/State/[facility] Co de Phone Number [facility] [address] [place] [address] * (ABNORMAL) POCT glucose meter (04/13/2025 5:06 PM EST) [facility] Signature POCT Glucose 106(H) 74 - 99 mg/dL [...] 04/13/2025 5:08 PM EST [facility] Grout Machine Operator ID Ksenia Hernandez 04/13/2025 5:08 PM EST [facility] Device ID [id number] 04/13/2025 5:08 PM EST [facility] Specimen Type POC Capillary 04/13/2025 5:08 PM EST [facility]ALTH[facility] LAB Blood Capillary blood specimen / Unknown 04/13/2025 5:06 PM EST 04/13/2025 5:08 PM EST us Everett Beyer DO LAB POINT OF CARE TE ST DOCKED DEVICE UNSOLICITED RESULTS Final Result Performing Organization Address [facility] Co de Phone Number [facility] [address] [place] [address] * (ABNORMAL) POCT glucose meter (04/13/2025 11:44 AM EST) POCT Glucose 139(H) 74 - 99 mg/dL 04/13/2025 11:48 AM EST [facility] Comment:Accuracy of a glucos e result [...] for testing. Comment 04/13/2025 11:48 AM EST [facility] Grout Machine Operator ID Ksenia Hernandez 04/13/2025 11:48 AM EST [facility] Device ID [id number] 04/13/2025 11:48 AM EST [facility] Specimen Type POC Capillary 04/13/2025 11:48 AM EST [facility] Blood Capillary blood specimen / Unknown 04/13/2025 11:44 AM EST 04/13/2025 11:48 AM EST us Everett Beyer DO LAB POINT OF CARE TE ST DOCKED DEVICE UNSOLICITED RESULTS Final Result Performing Organization Address [facility] [facility] de Phone Number [facility] [address] [place] [address] * [place] Esophagram Single Contrast Water Soluble Contrast (04/13/2025 10:18 AM EST) Anatomical Region Laterality Modality Esophagus, stomach and duodenum Digital Radiography Impressions 04/13/2025 2:23 PM EST Postoperative changes of Madison Romero esophagectomy. No definite evidence of contrast [...] Esophagus: Postoperative changes of Roderick Romero esophagectomy. Aspiration of water soluble contrast [...] COMPARISON: None. FINDINGS: Esophagus: Postoperative changes of Madison Romero esophagectomy. Aspirationof water soluble contrast was [...] Comment 04/13/2025 6:04 AM EST [facility] Grout Machine Operator ID Braeden Felix 025 6:04 AM EST [facility] Device ID [id number] 04/13/2025 6:04 AM EST [facility] Specimen Type POC Capillary 04/13/2025 6:04 AM EST [facility] Blood Capillary blood specimen / Unknown 04/13/2025 5:59 AM EST 04/13/2025 6:04 AM EST us Everett Beyer DO LAB POINT OF CARE TE ST DOCKED DEVICE UNSOLICITED RESULTS Final Result Performing Organization Address City/[facility]/ZIP Co de Phone Number [facility] [address] [place] [address] * Magnesium, Plasma (04/13/2025 5:25 AM EST) [facility] Magnesium, Plasma 2.0 1.9 - 2.4 mg/dL 04/13/2025 6:31 AM EST [facility] Blood Venous blood specimen / Unknown Venipuncture / Unknown 04/13/2025 5:25 AM EST 04/13/2025 5:58 AM EST us Everett Beyer DO LAB BLOOD ORDERABLES Final Re sult [facility] [address] [place] [address] * (ABNORMAL) Renal Function Panel, Plasma (04/13/2025 5:25 AM EST) [facility] Glucose, Plasma 142(H) 74 - 99 mg/dL 04/13/2025 6:31 AM EST [facility] BUN, Plasma 14 8 - 23 mg/dL 04/13/2025 6:31 AM EST [facility] Creatinine, Plasma 0.57(L) 0.70 - 1.20 mg/dL 04/13/2025 6:31 AM EST [facility] BUN/Creatinine Ratio 04/13/2025 6:31 AM EST [facility] Sodium, Plasma 136 136 - 145 mmol/L 04/13/2025 6:31 AM EST [facility] Potassium, Plasma 3.6 3.6 - 4.9 mmol/L 04/13/2025 6:31 AM EST [facility] Chloride, Plasma 103 97 - 107 mmol/L 04/13/2025 6:31 AM EST [facility] CO2, Plasma 22 22 - 29 mmol/L 04/13/2025 6:31 AM EST [facility] Anion Gap 11 6 - 16 mmol/L 04/13/2025 6:31 AM EST [facility] Total Calcium, Plasma 8.5(L) 8.9 - 10.2 mg/dL 04/13/2025 6:31 AM EST [facility] Phosphorus, Plasma 3.4 2.5 - 4.5 mg/dL 04/13/2025 6:31 AM EST [facility] Albumin, Plasma 3.3(L) 3.5 - 5.2 g/dL 04/13/2025 6:31 AM EST [facility] eGFRcr 104.8 mL/min/1.7 3m*2 04/13/2025 6:31 AM EST [facility] Comment:Reported eGFRcr in m L/min/1.73m2 is based the CKD-EPI 2020 equation that does not use a race coefficient. Blood Venous blood specimen / Unknown Venipuncture / Unknown 04/13/2025 5:25 AM EST 04/13/2025 5:58 AM EST us Everett Beyer DO LAB BLOOD ORDERABLES Final Re sult [facility] [address] [place] [address] * (ABNORMAL) CBC W/O Differential (04/13/2025 5:25 AM EST) WBC Count 9.14 3.70 - 10.30 10*3/uL LAB HEMATOLOGY METHOD 04/13/2025 6:17 AM EST [facility] RBC Count 3.86(L) 4.60 - 6.10 10*6/uL LAB HEMATOLOGY METHOD 04/13/2025 6:17 AM EST [facility] HGB 12.9(L) 13.7 - 17.5 g/dL LAB HEMATOLOGY METHOD 04/13/2025 6:17 AM EST [facility] HCT 37.4(L) 40.0 - 51.0 % LAB HEMATOLOGY METHOD 04/13/2025 6:17 AM EST [facility] Platelet Count 164 155 - 369 10*3/uL LAB HEMATOLOGY METHOD 04/13/2025 6:17 AM EST [facility] MCV 97 79 - 98 fL LAB HEMATOLOGY METHOD 04/13/2025 6:17 AM EST [facility] MCH 33.4(H) 26.0 - 32.0 pg LAB HEMATOLOGY METHOD 04/13/2025 6:17 AM EST [facility] MCHC 34.5 30.7 - 35.5 g/dL LAB HEMATOLOGY METHOD 04/13/2025 6:17 AM EST [facility] RDW 12.5 11.5 - 14.5 % LAB HEMATOLOGY METHOD 04/13/2025 6:17 AM EST [facility] MPV 10.4 8.8 - 12.5 fL LAB HEMATOLOGY METHOD 04/13/2025 6:17 AM EST [facility] nRBC 0.0 <=0.0 per 100 WBCs LAB HEMATOLOGY METHOD 04/13/2025 6:17 AM EST [facility] Blood Venous blood specimen / Unknown Venipuncture / Unknown 04/13/2025 5:25 AM EST 04/13/2025 6:00 AM EST us Everett Beyer DO LAB BLOOD ORDERABLES Final Re sult [facility] [address] [place] [address] * (ABNORMAL) POCT glucose meter (04/12/2025 11:53 [...] 04/13/2025 12:02 AM EST [facility] Grout Machine Operator ID Braeden Felix 025 12:02 AM EST [facility] Device ID [id number] 04/13/2025 12:02 AM EST [facility] Specimen Type POC Capillary 04/13/2025 12:02 AM EST [facility] Blood Capillary blood specimen / Unknown 04/12/2025 11:53 PM EST 04/13/2025 12:02 AM EST Everett Beyer DO LAB POINT OF CARE TE ST DOCKED DEVICE UNSOLICITED RESULTS Final Result Performing Organization Address City/State/[facility] Co de Phone Number [facility] [address] [place] [address] * (ABNORMAL) POCT glucose meter (04/12/2025 5:55 PM EST) [facility] POCT Glucose 141(H) 74 - 99 mg/dL [...] 04/12/2025 5:57 PM EST [facility] Grout Machine Operator ID Godfrey Sharif Ksenia 04/12/2025 5:57 PM EST [facility] Device ID [id number] 04/12/2025 5:57 PM EST [facility] Specimen Type POC Capillary 04/12/2025 5:57 PM EST [facility] Blood Capillary blood specimen / Unknown 04/12/2025 5:55 PM EST 04/12/2025 5:57 PM EST us Everett Beyer DO LAB POINT OF CARE TE ST DOCKED DEVICE UNSOLICITED RESULTS Final Result Performing Organization Address [facility] de Phone Number [facility] [address] [place] [address] * (ABNORMAL) POCT glucose meter (04/12/2025 11:35 [...] for testing. Comment 04/12/2025 11:40 AM EST [facility] Grout Machine Operator ID Ksenia Hernandez 04/12/2025 11:40 AM EST [facility] Device ID [id number] 04/12/2025 11:40 AM EST [facility] Specimen Type POC Capillary 04/12/2025 11:40 AM EST [facility] Blood Capillary blood specimen / Unknown 04/12/2025 11:35 AM EST 04/12/2025 11:40 AM EST us Everett Beyer DO LAB POINT OF CARE TE ST DOCKED DEVICE UNSOLICITED RESULTS Final Result Performing Organization Address [facility] de Phone Number [facility] [address] [place] [address] * (ABNORMAL) POCT glucose meter (04/12/2025 5:57 [...] for testing. Comment 04/12/2025 5:58 AM EST [facility] Grout Machine Operator ID Jose Reyes 04/12/2025 5:58 AM EST [facility] Device ID [id number] 04/12/2025 5:58 AM EST [facility] Specimen Type POC Capillary 04/12/2025 5:58 AM EST [facility] Blood Capillary blood specimen / Unknown 04/12/2025 5:57 AM EST 04/12/2025 5:58 AM EST us Everett Beyer DO LAB POINT OF CARE TE ST DOCKED DEVICE UNSOLICITED RESULTS Final Result Performing Organization Address City/[facility]/ZIP Co de Phone Number [facility] [address] [place] [address] * Magnesium, Plasma (04/12/2025 4:23 AM EST) Magnesium, Plasma 2.0 1.9 - 2.4 mg/dL 04/12/2025 5:05 AM EST [facility] Blood Venous blood specimen / Unknown Venipuncture / Unknown 04/12/2025 4:23 AM EST 04/12/2025 4:36 AM EST us Everett Beyer DO LAB BLOOD ORDERABLES Final Re sult Performing Organization Address City/[facility]/ZIP Co de Phone Number [facility] [address] [place] [address] * (ABNORMAL) Renal Function Panel, Plasma (04/12/2025 4:23 AM EST) Glucose, Plasma 112(H) 74 - 99 mg/dL 04/12/2025 5:05 AM EST [facility] BUN, Plasma 15 8 - 23 mg/dL 04/12/2025 5:05 AM EST [facility] Creatinine, Plasma 0.59(L) 0.70 - 1.20 mg/dL 04/12/2025 5:05 AM EST [facility] BUN/Creatinine Ratio 25 04/12/2025 5:05 AM EST [facility] Sodium, Plasma 138 136 - 145 mmol/L 04/12/2025 5:05 AM EST [facility] Potassium, Plasma 3.7 3.6 - 4.9 mmol/L 04/12/2025 5:05 AM EST [facility] Chloride, Plasma 106 97 - 107 mmol/L 04/12/2025 5:05 AM EST [facility] CO2, Plasma 24 22 - 29 mmol/L 04/12/2025 5:05 AM EST [facility] Anion Gap 8 6 - 16 mmol/L 04/12/2025 5:05 AM EST [facility] Total Calcium, Plasma 8.3(L) 8.9 - 10.2 mg/dL 04/12/2025 5:05 AM EST [facility] Phosphorus, Plasma 4.1 2.5 - 4.5 mg/dL 04/12/2025 5:05 AM EST [facility] Albumin, Plasma 3.1(L) 3.5 - 5.2 g/dL 04/12/2025 5:05 AM EST [facility] eGFRcr 103.7 mL/min/1.7 3m*2 04/12/2025 5:05 AM EST [facility] Comment:Reported eGFRcr in m L/min/1.73m2 is based the CKD-EPI 2020 equation that does not use a race coefficient. Blood Venous blood specimen / Unknown Venipuncture / Unknown 04/12/2025 4:23 AM EST 04/12/2025 4:36 AM EST Everett Beyer DO LAB BLOOD ORDERABLES Final Re sult [facility] [address] [place] [address] * (ABNORMAL) CBC W/O Differential (04/12/2025 4:23 AM EST) WBC Count 7.30 3.70 - 10.30 10*3/uL LAB HEMATOLOGY METHOD 04/12/2025 4:43 AM EST [facility] RBC Count 3.68(L) 4.60 - 6.10 10*6/uL LAB HEMATOLOGY METHOD 04/12/2025 4:43 AM EST [facility] HGB 12.0(L) 13.7 - 17.5 g/dL LAB HEMATOLOGY METHOD 04/12/2025 4:43 AM EST [facility] HCT 35.6(L) 40.0 - 51.0 % LAB HEMATOLOGY METHOD 04/12/2025 4:43 AM EST [facility] Platelet Count 146(L) 155 - 369 10*3/uL LAB HEMATOLOGY METHOD 04/12/2025 4:43 AM EST [facility] MCV 97 79 - 98 fL LAB HEMATOLOGY METHOD 04/12/2025 4:43 AM EST [facility] MCH 32.6(H) 26.0 - 32.0 pg LAB HEMATOLOGY METHOD 04/12/2025 4:43 AM EST [facility] MCHC 33.7 30.7 - 35.5 g/dL LAB HEMATOLOGY METHOD 04/12/2025 4:43 AM EST [facility] RDW 12.6 11.5 - 14.5 % LAB HEMATOLOGY METHOD 04/12/2025 4:43 AM EST [facility] MPV 10.1 8.8 - 12.5 fL LAB HEMATOLOGY METHOD 04/12/2025 4:43 AM EST [facility] nRBC 0.0 <=0.0 per 100 WBCs LAB HEMATOLOGY METHOD 04/12/2025 4:43 AM EST [facility] Blood Venous blood specimen / Unknown Venipuncture / Unknown 04/12/2025 4:23 AM EST 04/12/2025 4:36 AM EST Everett Beyer DO LAB BLOOD ORDERABLES Final Re sult Performing Organization Address City/State/[facility] Co de Phone Number [facility] [address] [place] [address] * XR Chest 1 View (04/12/2025 2:12 [...] Eric Tellez MD on 04/12/2025 11:30 AM us Everett Beyer DO IMG XR [...] 04/11/2025 11:07 PM EST [facility] Grout Machine Operator ID Jose Reyes 04/11/2025 11:07 PM EST [facility] Device ID [id number] 04/11/2025 11:07 PM EST [facility] Specimen Type POC Capillary 04/11/2025 11:07 PM EST [facility] Blood Capillary blood specimen / Unknown 04/11/2025 11:05 PM EST 04/11/2025 11:07 PM EST us Everett Beyer DO LAB POINT OF CARE TE ST DOCKED DEVICE UNSOLICITED RESULTS Final Result [facility] [address] [place] [address] * (ABNORMAL) POCT glucose meter (04/11/2025 6:54 PM EST) [facility] POCT Glucose 117(H) 74 - 99 mg/dL [...] for testing. Comment 04/11/2025 6:56 PM EST [facility] Grout Machine Operator ID Romel Sood 6:56 PM EST [facility] Device ID [id number] 04/11/2025 6:56 PM EST [facility] Specimen Type POC Capillary 04/11/2025 6:56 PM EST [facility] Blood Capillary blood specimen / Unknown 04/11/2025 6:54 PM EST 04/11/2025 6:56 PM EST Everett Beyer DO LAB POINT OF CARE TE ST DOCKED DEVICE UNSOLICITED RESULTS Final Result Performing Organization Address [facility] Co de Phone Number [facility] [address] [place] [address] * (ABNORMAL) POCT glucose meter (04/11/2025 12:14 PM EST) [facility] POCT Glucose 171(H) 74 - 99 mg/dL [...] for testing. Comment 04/11/2025 12:16 PM EST [facility] Grout Machine Operator ID Romel Sood 12:16 PM EST [facility] Device ID [id number] 04/11/2025 12:16 PM EST [facility] Specimen Type POC Capillary 04/11/2025 12:16 PM EST [facility] Blood Capillary blood specimen / Unknown 04/11/2025 12:14 PM EST 04/11/2025 12:16 PM EST us Everett Beyer DO LAB POINT OF CARE TE ST DOCKED DEVICE UNSOLICITED RESULTS Final Result Performing Organization Address City/[facility] Co de Phone Number [facility] [address] [place] [address] * (ABNORMAL) POCT glucose meter (04/11/2025 5:53 AM EST) POCT Glucose 114(H) 74 - 99 mg/dL 04/11/2025 5:54 AM EST [facility] Comment:Accuracy of a glucos e result [...] for testing. Comment 04/11/2025 5:54 AM EST [facility] Grout Machine Operator ID Jose Reyes 04/11/2025 5:54 AM EST [facility]ALTH[facility]ARE [facility] Device ID [id number] 04/11/2025 5:54 AM EST [facility] Specimen Type POC Capillary 04/11/2025 5:54 AM EST [facility] Blood Capillary blood specimen / Unknown 04/11/2025 5:53 AM EST 04/11/2025 5:54 AM EST us Everett Beyer DO LAB POINT OF CARE TE ST DOCKED DEVICE UNSOLICITED RESULTS Final Result Performing Organization Address City/[facility]/ZIP Co de Phone Number [facility] [address] [place] [address] * Magnesium, Plasma (04/11/2025 3:51 AM EST) Magnesium, Plasma 2.1 1.9 - 2.4 mg/dL 04/11/2025 4:29 AM EST [facility] Blood Venous blood specimen / Unknown Venipuncture / Unknown 04/11/2025 3:51 AM EST 04/11/2025 4:00 AM EST us Everett Beyer DO LAB BLOOD ORDERABLES Final Re sult [facility] [address] [place] [address] * (ABNORMAL) Renal Function Panel, Plasma (04/11/2025 3:51 AM EST) Glucose, Plasma 102(H) 74 - 99 mg/dL 04/11/2025 4:29 AM EST [facility] BUN, Plasma 12 8 - 23 mg/dL 04/11/2025 4:29 AM EST [facility] Creatinine, Plasma 0.59(L) 0.70 - 1.20 mg/dL 04/11/2025 4:29 AM EST [facility] BUN/Creatinine Ratio 20 04/11/2025 4:29 AM EST [facility] Sodium, Plasma 139 136 - 145 mmol/L 04/11/2025 4:29 AM EST [facility] Potassium, Plasma 3.8 3.6 - 4.9 mmol/L 04/11/2025 4:29 AM EST [facility] Chloride, Plasma 106 97 - 107 mmol/L 04/11/2025 4:29 AM EST [facility] CO2, Plasma 24 22 - 29 mmol/L 04/11/2025 4:29 AM EST [facility] Anion Gap 9 6 - 16 mmol/L 04/11/2025 4:29 AM EST [facility] Total Calcium, Plasma 8.4(L) 8.9 - 10.2 mg/dL 04/11/2025 4:29 AM EST [facility] Phosphorus, Plasma 3.7 2.5 - 4.5 mg/dL 04/11/2025 4:29 AM EST [facility] Albumin, Plasma 3.2(L) 3.5 - 5.2 g/dL 04/11/2025 4:29 AM EST [facility] eGFRcr 103.7 mL/min/1.7 3m*2 04/11/2025 4:29 AM EST [facility] Comment:Reported eGFRcr in m L/min/1.73m2 is based the CKD-EPI 2020 equation that does not use a race coefficient. Blood Venous blood specimen / Unknown Venipuncture / Unknown 04/11/2025 3:51 AM EST 04/11/2025 4:00 AM EST us Everett Beyer DO LAB BLOOD ORDERABLES Final Re sult [facility] [address] [place] [address] * (ABNORMAL) CBC W/O Differential (04/11/2025 3:51 AM EST) WBC Count 6.73 3.70 - 10.30 10*3/uL LAB HEMATOLOGY METHOD 04/11/2025 4:09 AM EST [facility] RBC Count 3.78(L) 4.60 - 6.10 10*6/uL LAB HEMATOLOGY METHOD 04/11/2025 4:09 AM EST [facility] HGB 12.7(L) 13.7 - 17.5 g/dL LAB HEMATOLOGY METHOD 04/11/2025 4:09 AM EST [facility] HCT 36.7(L) 40.0 - 51.0 % LAB HEMATOLOGY METHOD 04/11/2025 4:09 AM EST [facility] Platelet Count 141(L) 155 - 369 10*3/uL LAB HEMATOLOGY METHOD 04/11/2025 4:09 AM EST [facility] MCV 97 79 - 98 fL LAB HEMATOLOGY METHOD 04/11/2025 4:09 AM EST [facility] MCH 33.6(H) 26.0 - 32.0 pg LAB HEMATOLOGY METHOD 04/11/2025 4:09 AM EST [facility] MCHC 34.6 30.7 - 35.5 g/dL LAB HEMATOLOGY METHOD 04/11/2025 4:09 AM EST [facility] RDW 12.8 11.5 - 14.5 % LAB HEMATOLOGY METHOD 04/11/2025 4:09 AM EST [facility] MPV 10.4 8.8 - 12.5 fL LAB HEMATOLOGY METHOD 04/11/2025 4:09 AM EST [facility] nRBC 0.0 <=0.0 per 100 WBCs LAB HEMATOLOGY METHOD 04/11/2025 4:09 AM EST [facility] Blood Venous blood specimen / Unknown Venipuncture / Unknown 04/11/2025 3:51 AM EST 04/11/2025 4:00 AM EST us Everett Beyer DO LAB BLOOD ORDERABLES Final Re sult [facility] [address] [place] [address] * XR Chest 1 View (04/11/2025 3:01 [...] POCT glucose meter (04/10/2025 11:04 PM EST) [facility] POCT Glucose 117(H) 74 - 99 mg/dL [...] 04/10/2025 11:06 PM EST [facility] Grout Machine Operator ID Jose Reyes 04/10/2025 11:06 PM EST [facility] Device ID [id number] 04/10/2025 11:06 PM EST [facility] Specimen Type POC Capillary 04/10/2025 11:06 PM EST [facility] Blood Capillary blood specimen / Unknown 04/10/2025 11:04 PM EST 04/10/2025 11:06 PM EST Everett Beyer DO LAB POINT OF CARE TE ST DOCKED DEVICE UNSOLICITED RESULTS Final Result Performing Organization Address City/State/[facility] Co de Phone Number [facility] [address] [place] [address] * (ABNORMAL) POCT glucose meter (04/10/2025 5:55 PM EST) [facility] POCT Glucose 137(H) 74 - 99 mg/dL [...] 04/10/2025 5:57 PM EST [facility] Grout Machine Operator ID Laura Whitten 04/10/2025 5:57 PM EST [facility] Device ID [id number] 04/10/2025 5:57 PM EST [facility] Specimen Type POC Capillary 04/10/2025 5:57 PM EST [facility] Blood Capillary blood specimen / Unknown 04/10/2025 5:55 PM EST 04/10/2025 5:57 PM EST us Everett Beyer DO LAB POINT OF CARE TE ST DOCKED DEVICE UNSOLICITED RESULTS Final Result Performing Organization Address [facility] de Phone Number [facility] [address] [place] [address] * (ABNORMAL) POCT glucose meter (04/10/2025 12:24 [...] for testing. Comment 04/10/2025 12:26 PM EST [facility] Grout Machine Operator ID Laura Whitten 04/10/2025 12:26 PM EST [facility] Device ID [id number] 04/10/2025 12:26 PM EST [facility] Specimen Type POC Capillary 04/10/2025 12:26 PM EST [facility] Blood Capillary blood specimen / Unknown 04/10/2025 12:24 PM EST 04/10/2025 12:26 PM EST us Everett Beyer DO LAB POINT OF CARE TE ST DOCKED DEVICE UNSOLICITED RESULTS Final Result Performing Organization Address City/[facility] de Phone Number [facility] [address] [place] [address] * (ABNORMAL) POCT glucose meter (04/10/2025 6:01 [...] for testing. Comment 04/10/2025 6:02 AM EST [facility] Grout Machine Operator ID Ceci Santo 04/10/2025 6:02 AM EST [facility] Device ID [id number] 04/10/2025 6:02 AM EST [facility] Specimen Type POC Capillary 04/10/2025 6:02 AM EST [facility] Blood Capillary blood specimen / Unknown 04/10/2025 6:01 AM EST 04/10/2025 6:02 AM EST us Everett Beyer DO LAB POINT OF CARE TE ST DOCKED DEVICE UNSOLICITED RESULTS Final Result Performing Organization Address City/State/[facility] Co de Phone Number [facility] [address] [place] [address] * XR Chest 1 View (04/10/2025 2:17 [...] POCT glucose meter (04/10/2025 12:43 AM EST) POCT Glucose 99 74 - 99 mg/dL 04/10/2025 12:45 AM EST [facility] Comment:Accuracy of a glucos e result [...] for testing. Comment 04/10/2025 12:45 AM EST [facility] Grout Machine Operator ID Niesha Huerta 04/10/2025 12:45 AM EST [facility] Device ID [id number] 04/10/2025 12:45 AM EST [facility] Specimen Type POC Venous 04/10/2025 12:45 AM EST [facility] Blood Venous blood specimen / Unknown 04/10/2025 12:43 AM EST 04/10/2025 12:45 AM EST us Everett Beyer DO LAB POINT OF CARE TE ST DOCKED DEVICE UNSOLICITED RESULTS Final Result [facility] [address] [place] [id number] * Magnesium, Plasma (04/10/2025 12:43 AM EST) Magnesium, Plasma 2.0 1.9 - 2.4 mg/dL 04/10/2025 1:23 AM EST [facility] Blood Venous blood specimen / Unknown Venipuncture / Unknown 04/10/2025 12:43 AM EST 04/10/2025 12:52 AM EST us Everett Beyer DO LAB BLOOD ORDERABLES Final Re sult [facility] [address] [place] [address] * (ABNORMAL) Renal Function Panel, Plasma (04/10/2025 12:43 AM EST) Glucose, Plasma 104(H) 74 - 99 mg/dL 04/10/2025 1:23 AM EST [facility] BUN, Plasma 10 8 - 23 mg/dL 04/10/2025 1:23 AM EST [facility] Creatinine, Plasma 0.60(L) 0.70 - 1.20 mg/dL 04/10/2025 1:23 AM EST [facility] BUN/Creatinine Ratio 17 04/10/2025 1:23 AM EST [facility] Sodium, Plasma 139 136 - 145 mmol/L 04/10/2025 1:23 AM EST [facility] Potassium, Plasma 3.6 3.6 - 4.9 mmol/L 04/10/2025 1:23 AM EST [facility] Chloride, Plasma 104 97 - 107 mmol/L 04/10/2025 1:23 AM EST [facility] CO2, Plasma 25 22 - 29 mmol/L 04/10/2025 1:23 AM EST [facility] Anion Gap 10 6 - 16 mmol/L 04/10/2025 1:23 AM EST [facility] Total Calcium, Plasma 8.2(L) 8.9 - 10.2 mg/dL 04/10/2025 1:23 AM EST [facility] Phosphorus, Plasma 3.6 2.5 - 4.5 mg/dL 04/10/2025 1:23 AM EST [facility] Albumin, Plasma 3.1(L) 3.5 - 5.2 g/dL 04/10/2025 1:23 AM EST [facility] eGFRcr 103.2 mL/min/1.7 3m*2 04/10/2025 1:23 AM EST [facility] Comment:Reported eGFRcr in m L/min/1.73m2 is based the CKD-EPI 2020 equation that does not use a race coefficient. Blood Venous blood specimen / Unknown Venipuncture / Unknown 04/10/2025 12:43 AM EST 04/10/2025 12:52 AM EST us Everett Beyer DO LAB BLOOD ORDERABLES Final Re sult [facility] [address] [place] [address] * (ABNORMAL) CBC W/O Differential (04/10/2025 12:43 AM EST) WBC Count 7.94 3.70 - 10.30 10*3/uL LAB HEMATOLOGY METHOD 04/10/2025 1:10 AM EST [facility] RBC Count 3.79(L) 4.60 - 6.10 10*6/uL LAB HEMATOLOGY METHOD 04/10/2025 1:10 AM EST [facility] HGB 12.7(L) 13.7 - 17.5 g/dL LAB HEMATOLOGY METHOD 04/10/2025 1:10 AM EST [facility] HCT 36.5(L) 40.0 - 51.0 % LAB HEMATOLOGY METHOD 04/10/2025 1:10 AM EST [facility] LAB Platelet Count 129(L) 155 - 369 10*3/uL LAB HEMATOLOGY METHOD 04/10/2025 1:10 AM EST [facility] MCV 96 79 - 98 fL LAB HEMATOLOGY METHOD 04/10/2025 1:10 AM EST [facility] LAB Comment:Results inconsistent with previous lab findings. MCH 33.5(H) 26.0 - 32.0 pg LAB HEMATOLOGY METHOD 04/10/2025 1:10 AM EST [facility] MCHC 34.8 30.7 - 35.5 g/dL LAB HEMATOLOGY METHOD 04/10/2025 1:10 AM EST [facility] RDW 12.8 11.5 - 14.5 % LAB HEMATOLOGY METHOD 04/10/2025 1:10 AM EST [facility] MPV 10.7 8.8 - 12.5 fL LAB HEMATOLOGY METHOD 04/10/2025 1:10 AM EST [facility] nRBC 0.0 <=0.0 per 100 WBCs LAB HEMATOLOGY METHOD 04/10/2025 1:10 AM EST [facility] Blood Venous blood specimen / Unknown Venipuncture / Unknown 04/10/2025 12:43 AM EST 04/10/2025 12:54 AM EST us Everett Beyer DO LAB BLOOD ORDERABLES Final Re sult [facility] [address] [place] [address] * XR Chest 1 View (04/09/2025 3:34 [...] MD on 04/09/2025 4:29 PM Chu Davis 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 Comment 04/09/2025 8:58 AM EST [facility] Grout Machine Operator ID Hermelinda Muniz 04/09/2025 8:58 AM EST [facility] Device ID [id number] 04/09/2025 8:58 AM EST [facility] Specimen Type POC Capillary 04/09/2025 8:58 AM EST [facility] Blood Capillary blood specimen / Unknown 04/09/2025 8:56 AM EST 04/09/2025 8:58 AM EST us Everett Beyer DO LAB POINT OF CARE TE ST DOCKED DEVICE UNSOLICITED RESULTS Final Result Performing Organization Address City/[facility]/ZIP Co de Phone Number [facility] [address] [place] [address] * Magnesium, Plasma (04/09/2025 5:01 AM EST) Pathologist [facility] Magnesium, Plasma 1.9 1.9 - 2.4 mg/dL 04/09/2025 5:46 AM EST [facility] Blood Venous blood specimen / Unknown Venipuncture / Unknown 04/09/2025 5:01 AM EST 04/09/2025 5:18 AM EST us Everett Beyer DO LAB BLOOD ORDERABLES Final Re sult Performing Organization Address City/[facility]/ZIP Co de Phone Number [facility] [address] [place] [address] * (ABNORMAL) Renal Function Panel, Plasma (04/09/2025 5:01 AM EST) Glucose, Plasma 86 74 - 99 mg/dL 04/09/2025 5:46 AM EST [facility] BUN, Plasma 7(L) 8 - 23 mg/dL 04/09/2025 5:46 AM EST [facility] Creatinine, Plasma 0.58(L) 0.70 - 1.20 mg/dL 04/09/2025 5:46 AM EST [facility] BUN/Creatinine Ratio 12 04/09/2025 5:46 AM EST [facility] Sodium, Plasma 135(L) 136 - 145 mmol/L 04/09/2025 5:46 AM EST [facility] Potassium, Plasma 3.9 3.6 - 4.9 mmol/L 04/09/2025 5:46 AM EST [facility] Chloride, Plasma 101 97 - 107 mmol/L 04/09/2025 5:46 AM EST [facility] CO2, Plasma 24 22 - 29 mmol/L 04/09/2025 5:46 AM EST [facility] Anion Gap 10 6 - 16 mmol/L 04/09/2025 5:46 AM EST [facility] Total Calcium, Plasma 8.3(L) 8.9 - 10.2 mg/dL 04/09/2025 5:46 AM EST [facility] Phosphorus, Plasma 3.4 2.5 - 4.5 mg/dL 04/09/2025 5:46 AM EST [facility] Albumin, Plasma 3.1(L) 3.5 - 5.2 g/dL 04/09/2025 5:46 AM EST [facility] eGFRcr 104.3 mL/min/1.7 3m*2 04/09/2025 5:46 AM EST [facility] Comment:Reported eGFRcr in m L/min/1.73m2 is based the CKD-EPI 2020 equation that does not use a race coefficient. Blood Venous blood specimen / Unknown Venipuncture / Unknown 04/09/2025 5:01 AM EST 04/09/2025 5:18 AM EST us Everett Beyer DO LAB BLOOD ORDERABLES Final Re sult [facility] [address] [place] [address] * (ABNORMAL) CBC W/O Differential (04/09/2025 5:01 AM EST) WBC Count 6.72 3.70 - 10.30 10*3/uL LAB HEMATOLOGY METHOD 04/09/2025 5:48 AM EST [facility] RBC Count 3.68(L) 4.60 - 6.10 10*6/uL LAB HEMATOLOGY METHOD 04/09/2025 5:48 AM EST [facility] HGB 12.1(L) 13.7 - 17.5 g/dL LAB HEMATOLOGY METHOD 04/09/2025 5:48 AM EST [facility] HCT 39.4(L) 40.0 - 51.0 % LAB HEMATOLOGY METHOD 04/09/2025 5:48 AM EST [facility] Platelet Count 117(L) 155 - 369 10*3/uL LAB HEMATOLOGY METHOD 04/09/2025 5:48 AM EST [facility] MCV 107(H) 79 - 98 fL LAB HEMATOLOGY METHOD 04/09/2025 5:48 AM EST [facility] Comment:Results inconsistent with previous lab findings. MCH 32.9(H) 26.0 - 32.0 pg LAB HEMATOLOGY METHOD 04/09/2025 5:48 AM EST [facility] MCHC 30.7 30.7 - 35.5 g/dL LAB HEMATOLOGY METHOD 04/09/2025 5:48 AM EST [facility] RDW 12.9 11.5 - 14.5 % LAB HEMATOLOGY METHOD 04/09/2025 5:48 AM EST [facility] MPV 10.7 8.8 - 12.5 fL LAB HEMATOLOGY METHOD 04/09/2025 5:48 AM EST [facility] nRBC 0.0 <=0.0 per 100 WBCs LAB HEMATOLOGY METHOD 04/09/2025 5:48 AM EST [facility] Blood Venous blood specimen / Unknown Venipuncture / Unknown 04/09/2025 5:01 AM EST 04/09/2025 5:17 AM EST us Everett Beyer DO LAB BLOOD ORDERABLES Final Re sult [facility] [address] [place] [id number] * XR Chest 1 View (04/09/2025 1:50 [...] pneumothorax. Stable cardiac silhouette. Procedure Note Rayna Sanot MD - 04/09/2025 CLINICAL INDICATION: PostOp Esophagectomy [...] - 99 mg/dL 04/09/2025 12:26 AM EST [facility] Comment:Accuracy of a glucos e result [...] for testing. Comment 04/09/2025 12:26 AM EST [facility] Grout Machine Operator ID Niesha Huerta 04/09/2025 12:26 AM EST [facility] Device ID [id number] 04/09/2025 12:26 AM EST [facility] Specimen Type POC Capillary 04/09/2025 12:26 AM EST [facility] Blood Capillary blood specimen / Unknown 04/09/2025 12:25 AM EST 04/09/2025 12:26 AM EST us Everett Beyer DO LAB POINT OF CARE TE ST DOCKED DEVICE UNSOLICITED RESULTS Final Result Performing Organization Address City/[facility] Co de Phone Number [facility] [address] [place] [address] * (ABNORMAL) POCT glucose meter (04/08/2025 3:17 PM EST) [facility] POCT Glucose 181(H) 74 - 99 mg/dL 04/08/2025 3:18 PM EST [facility] Comment:Accuracy of [...] for testing. Comment 04/08/2025 3:18 PM EST [facility] Grout Machine Operator ID Hermelinda Muniz 04/08/2025 3:18 PM EST [facility] Device ID [id number] 04/08/2025 3:18 PM EST [facility] Specimen Type POC Capillary 04/08/2025 3:18 PM EST [facility] Blood Capillary blood specimen / Unknown 04/08/2025 3:17 PM EST 04/08/2025 3:18 PM EST us Everett Beyer DO LAB POINT OF CARE TE ST DOCKED DEVICE UNSOLICITED RESULTS Final Result Performing Organization Address City/[facility]/ZIP Co de Phone Number [facility] [address] [place] [address] * (ABNORMAL) POCT glucose meter (04/08/2025 6:03 [...] for testing. Comment 04/08/2025 6:04 AM EST [facility] Grout Machine Operator ID Niesha Huerta 04/08/2025 6:04 AM EST [facility] Device ID [id number] 04/08/2025 6:04 AM EST [facility] Specimen Type POC Capillary 04/08/2025 6:04 AM EST [facility] Blood Capillary blood specimen / Unknown 04/08/2025 6:03 AM EST 04/08/2025 6:04 AM EST Everett Beyer DO LAB POINT OF CARE TE ST DOCKED DEVICE UNSOLICITED RESULTS Final Result Performing Organization Address City/State/[facility] Co de Phone Number [facility] [address] [place] [address] * XR Chest 1 View (04/08/2025 3:14 [...] - 2.4 mg/dL 04/08/2025 2:32 AM EST [facility] Blood Venous blood specimen / Unknown Venipuncture / Unknown 04/08/2025 1:58 AM EST 04/08/2025 2:03 AM EST us Everett Beyer DO LAB BLOOD ORDERABLES Final Re sult [facility] [address] [place] [address] * (ABNORMAL) Renal Function Panel, Plasma (04/08/2025 1:58 AM EST) Glucose, Plasma 105(H) 74 - 99 mg/dL 04/08/2025 2:32 AM EST [facility] BUN, Plasma 9 8 - 23 mg/dL 04/08/2025 2:32 AM EST [facility] Creatinine, Plasma 0.62(L) 0.70 - 1.20 mg/dL 04/08/2025 2:32 AM EST [facility] BUN/Creatinine Ratio 15 04/08/2025 2:32 AM EST [facility] Sodium, Plasma 139 136 - 145 mmol/L 04/08/2025 2:32 AM EST [facility] Potassium, Plasma 3.9 3.6 - 4.9 mmol/L 04/08/2025 2:32 AM EST [facility] Chloride, Plasma 105 97 - 107 mmol/L 04/08/2025 2:32 AM EST [facility] CO2, Plasma 26 22 - 29 mmol/L 04/08/2025 2:32 AM EST [facility] Anion Gap 8 6 - 16 mmol/L 04/08/2025 2:32 AM EST [facility] Total Calcium, Plasma 8.4(L) 8.9 - 10.2 mg/dL 04/08/2025 2:32 AM EST [facility] Phosphorus, Plasma 3.0 2.5 - 4.5 mg/dL 04/08/2025 2:32 AM EST [facility] Albumin, Plasma 3.3(L) 3.5 - 5.2 g/dL 04/08/2025 2:32 AM EST [facility] eGFRcr 102.2 mL/min/1.7 3m*2 04/08/2025 2:32 AM EST [facility] Comment:Reported eGFRcr in m L/min/1.73m2 is based the CKD-EPI 2020 equation that does not use a race coefficient. Blood Venous blood specimen / Unknown Venipuncture / Unknown 04/08/2025 1:58 AM EST 04/08/2025 2:03 AM EST us Everett Beyer DO LAB BLOOD ORDERABLES Final Re sult [facility] [address] [place] [address] * (ABNORMAL) CBC W/O Differential (04/08/2025 1:58 AM EST) WBC Count 7.57 3.70 - 10.30 10*3/uL LAB HEMATOLOGY METHOD 04/08/2025 2:13 AM EST [facility] RBC Count 3.72(L) 4.60 - 6.10 10*6/uL LAB HEMATOLOGY METHOD 04/08/2025 2:13 AM EST [facility] HGB 12.5(L) 13.7 - 17.5 g/dL LAB HEMATOLOGY METHOD 04/08/2025 2:13 AM EST [facility] HCT 36.9(L) 40.0 - 51.0 % LAB HEMATOLOGY METHOD 04/08/2025 2:13 AM EST [facility] Platelet Count 102(L) 155 - 369 10*3/uL LAB HEMATOLOGY METHOD 04/08/2025 2:13 AM EST [facility] MCV 99(H) 79 - 98 fL LAB HEMATOLOGY METHOD 04/08/2025 2:13 AM EST [facility] MCH 33.6(H) 26.0 - 32.0 pg LAB HEMATOLOGY METHOD 04/08/2025 2:13 AM EST [facility] MCHC 33.9 30.7 - 35.5 g/dL LAB HEMATOLOGY METHOD 04/08/2025 2:13 AM EST [facility] RDW 13.3 11.5 - 14.5 % LAB HEMATOLOGY METHOD 04/08/2025 2:13 AM EST [facility] MPV 10.7 8.8 - 12.5 fL LAB HEMATOLOGY METHOD 04/08/2025 2:13 AM EST [facility] nRBC 0.0 <=0.0 per 100 WBCs LAB HEMATOLOGY METHOD 04/08/2025 2:13 AM EST [facility] Blood Venous blood specimen / Unknown Venipuncture / Unknown 04/08/2025 1:58 AM EST 04/08/2025 2:03 AM EST us Everett Beyer DO LAB BLOOD ORDERABLES Final Re sult [facility] [address] [place] [address] * (ABNORMAL) POCT glucose meter (04/07/2025 11:38 PM EST) POCT Glucose 112(H) 74 - 99 mg/dL 04/07/2025 11:39 PM EST [facility] Comment:Accuracy of [...] for testing. Comment 04/07/2025 11:39 PM EST [facility] Grout Machine Operator ID Niesha Huerta 04/07/2025 11:39 PM EST [facility] Device ID [id number] 04/07/2025 11:39 PM EST [facility] Specimen Type POC Capillary 04/07/2025 11:39 PM EST [facility] Blood Capillary blood specimen / Unknown 04/07/2025 11:38 PM EST 04/07/2025 11:39 PM EST Everett Beyer DO LAB POINT OF CARE TE ST DOCKED DEVICE UNSOLICITED RESULTS Final Result Performing Organization Address City/State/[facility] de Phone Number [facility] [address] [place] [address] * (ABNORMAL) POCT glucose meter (04/07/2025 6:13 PM EST) Pathologist [facility] POCT Glucose 111(H) 74 - 99 mg/dL [...] 04/07/2025 6:17 PM EST [facility] Grout Machine Operator ID Mario Alberto Price 6:17 PM EST [facility] Device ID [id number] 04/07/2025 6:17 PM EST [facility] Specimen Type POC Capillary 04/07/2025 6:17 PM EST [facility] Blood Capillary blood specimen / Unknown 04/07/2025 6:13 PM EST 04/07/2025 6:17 PM EST us Everett Beyer DO LAB POINT OF CARE TE ST DOCKED DEVICE UNSOLICITED RESULTS Final Result Performing Organization Address [facility] Phone Number [facility] [address] [place] [address] * POCT glucose meter (04/07/2025 1:19 PM EST) [facility] POCT Glucose 94 74 - 99 mg/dL [...] 04/07/2025 4:53 PM EST [facility] Grout Machine Operator ID Mario Alberto Price 4:53 PM EST [facility] Device ID [id number] 04/07/2025 4:53 PM EST [facility] Specimen Type POC Arterial 04/07/2025 4:53 PM EST [facility] Blood Arterial blood specimen / Unknown 04/07/2025 1:19 PM EST 04/07/2025 4:53 PM EST us Everett Beyer DO LAB POINT OF CARE TE ST DOCKED DEVICE UNSOLICITED RESULTS Final Result Performing Organization Address [facility] Phone Number [facility] [address] [place] [address] * [place] CRITICAL CARE, E/M 30-74 MINUTES (04/07/2025 9:38 [...] Baker MD on 04/07/2025 9:00 AM Everett Beyer DO IMG XR PROCEDURES Final Resul t * (ABNORMAL) Blood gas panel, arterial (04/07/2025 1:18 AM EST) pH, Arterial 7.37 7.31 - 7.42 LAB HEMATOLOGY METHOD 04/07/2025 1:43 AM [facility] pCO2, Arterial 46(H) 32 - 45 mmHg LAB HEMATOLOGY METHOD 04/07/2025 1:43 AM [facility] pO2, Arterial 94 >70 mmHg LAB HEMATOLOGY METHOD 04/07/2025 1:43 AM [facility] SO2, Measured, Arterial 99(H) 94 - 98 % LAB HEMATOLOGY METHOD 04/07/2025 1:43 AM [facility] Base Excess, Arterial 1.0 -2.0 - 3.0 mmol/L LAB HEMATOLOGY METHOD 04/07/2025 1:43 AM [facility] Bicarbonate, Calculated, Arterial 27(H) 22 - 26 mmol/L LAB HEMATOLOGY METHOD 04/07/2025 1:43 AM [facility] Hematocrit, Whole Blood 34.9(L) 40.0 - 51.0 % LAB HEMATOLOGY METHOD 04/07/2025 1:43 AM [facility] Sodium, Whole Blood 139 136 - 145 mmol/L LAB HEMATOLOGY METHOD 04/07/2025 1:43 AM [facility] Potassium, Whole Blood 3.9 3.6 - 4.9 mmol/L LAB HEMATOLOGY METHOD 04/07/2025 1:43 AM [facility] Chloride, Whole Blood 106 97 - 107 mmol/L LAB HEMATOLOGY METHOD 04/07/2025 1:43 AM [facility] Glucose, Whole Blood 105(H) 74 - 99 mg/dL LAB HEMATOLOGY METHOD 04/07/2025 1:43 AM [facility] Ionized Calcium, Whole Blood 4.6 4.6 - 5.1 mg/dL LAB HEMATOLOGY METHOD 04/07/2025 1:43 AM [facility] Lactate, Arterial, Whole Blood 0.8 0.5 - 1.6 mmol/L LAB HEMATOLOGY METHOD 04/07/2025 1:43 AM EST [facility] Blood Arterial blood specimen / Unknown Arterial Puncture / Unknown 04/07/2025 1:18 AM EST 04/07/2025 1:39 AM EST us Amanda Stout APRN, [facility] LAB BLOOD ORDERABLES Elena l Result Performing Organization Address City/[facility]/ZIP Co de Phone Number [facility] [address] [place] [address] * IONIZED CALCIUM, SYRINGE (04/07/2025 1:18 AM EST) Ionized Calcium, Whole Blood 4.6 4.6 - 5.1 mg/dL LAB HEMATOLOGY METHOD 04/07/2025 1:42 AM EST [facility] Blood Venous blood specimen / Unknown Venipuncture / Unknown 04/07/2025 1:18 AM EST 04/07/2025 1:39 AM EST us Amanda Stout APRN, [facility] BLOOD ORDERABLES Elena l Result Performing Organization Address City/[facility]/ZIP Co de Phone Number [facility] [address] [place] [address] * (ABNORMAL) Magnesium, Plasma (04/07/2025 12:54 AM EST) Magnesium, Plasma 1.8(L) 1.9 - 2.4 mg/dL 04/07/2025 1:42 AM EST [facility] Blood Venous blood specimen / Unknown Venipuncture / Unknown 04/07/2025 12:54 AM EST 04/07/2025 1:13 AM EST us Everett Beyer DO LAB BLOOD ORDERABLES Final Re sult [facility] [address] [place] [id number] * (ABNORMAL) Renal Function Panel, Plasma (04/07/2025 12:54 AM EST) Glucose, Plasma 107(H) 74 - 99 mg/dL 04/07/2025 1:42 AM EST [facility] BUN, Plasma 9 8 - 23 mg/dL 04/07/2025 1:42 AM EST [facility] Creatinine, Plasma 0.70 0.70 - 1.20 mg/dL 04/07/2025 1:42 AM EST [facility] BUN/Creatinine Ratio 13 04/07/2025 1:42 AM EST [facility] Sodium, Plasma 138 136 - 145 mmol/L 04/07/2025 1:42 AM EST [facility] Potassium, Plasma 4.0 3.6 - 4.9 mmol/L 04/07/2025 1:42 AM EST [facility] Chloride, Plasma 106 97 - 107 mmol/L 04/07/2025 1:42 AM EST [facility] CO2, Plasma 25 22 - 29 mmol/L 04/07/2025 1:42 AM EST [facility] Anion Gap 7 6 - 16 mmol/L 04/07/2025 1:42 AM EST [facility] Total Calcium, Plasma 8.0(L) 8.9 - 10.2 mg/dL 04/07/2025 1:42 AM EST [facility] Phosphorus, Plasma 4.0 2.5 - 4.5 mg/dL 04/07/2025 1:42 AM EST [facility] Albumin, Plasma 3.1(L) 3.5 - 5.2 g/dL 04/07/2025 1:42 AM EST [facility] eGFRcr 98.5 mL/min/1.7 3m*2 04/07/2025 1:42 AM EST [facility] Comment:Reported eGFRcr in m L/min/1.73m2 is based the CKD-EPI 2020 equation that does not use a race coefficient. Blood Venous blood specimen / Unknown Venipuncture / Unknown 04/07/2025 12:54 AM EST 04/07/2025 1:13 AM EST us Everett Beyer DO LAB BLOOD ORDERABLES Final Re sult [facility] [address] [place] [address] * (ABNORMAL) CBC W/O Differential (04/07/2025 12:54 AM EST) WBC Count 9.54 3.70 - 10.30 10*3/uL LAB HEMATOLOGY METHOD 04/07/2025 1:40 AM EST [facility] RBC Count 3.32(L) 4.60 - 6.10 10*6/uL LAB HEMATOLOGY METHOD 04/07/2025 1:40 AM EST [facility] HGB 10.9(L) 13.7 - 17.5 g/dL LAB HEMATOLOGY METHOD 04/07/2025 1:40 AM EST [facility] HCT 32.7(L) 40.0 - 51.0 % LAB HEMATOLOGY METHOD 04/07/2025 1:40 AM EST [facility] Platelet Count 124(L) 155 - 369 10*3/uL LAB HEMATOLOGY METHOD 04/07/2025 1:40 AM EST [facility] MCV 99(H) 79 - 98 fL LAB HEMATOLOGY METHOD 04/07/2025 1:40 AM EST [facility] MCH 32.8(H) 26.0 - 32.0 pg LAB HEMATOLOGY METHOD 04/07/2025 1:40 AM EST [facility] MCHC 33.3 30.7 - 35.5 g/dL LAB HEMATOLOGY METHOD 04/07/2025 1:40 AM EST [facility] RDW 13.2 11.5 - 14.5 % LAB HEMATOLOGY METHOD 04/07/2025 1:40 AM EST [facility] MPV 10.6 8.8 - 12.5 fL LAB HEMATOLOGY METHOD 04/07/2025 1:40 AM EST [facility] nRBC 0.0 <=0.0 per 100 WBCs LAB HEMATOLOGY METHOD 04/07/2025 1:40 AM EST [facility] Blood Venous blood specimen / Unknown Venipuncture / Unknown 04/07/2025 12:54 AM EST 04/07/2025 1:12 AM EST Everett Beyer DO LAB BLOOD ORDERABLES Final Re sult [facility] [address] [place] [address] * Ivory auris Surveillance by PCR (04/06/2025 3:55 PM EST) Ivory auris PCR Result Not Detected Not Detected 04/07/2025 12:43 PM EST [facility] Swab (Axilla and Groin) Non-blood Collection / Unknown 04/06/2025 3:55 PM EST 04/06/2025 4:04 PM EST Narrative [facility] - 04/07/2025 12:43 PM EST This PCR assay was developed and its performance characteristics determined by [facility] as appropriate for clinical purposes. This assay has not been cleared or approved by the FDA, but is performed in a CLIA regulated laboratory that is qualified to perform high-complexity testing. us Everett Bang [employer] LAB MICROBIOLOGY - GENERAL OR DERABLES Final Result Performing Organization Address [facility] Co de Phone Number [facility] [address] [place] [address] * Multi Drug Resistance Test (04/06/2025 3:55 PM EST) Culture No growth at day 1 04/08/2025 7:58 AM EST [facility] Swab (Nares and Catie Rectal) Non-blood Collection / Unknown 04/06/2025 3:55 PM EST 04/06/2025 4:04 PM EST Narrative [facility] - 04/08/2025 7:58 AM EST This test was developed and its performance characteristics determined by the [facility]. Although the media is FDA-approved, it is not FDA-approved for all specimen types submitted. The FDA has determined that such clearance or approval is not necessary. This test is used for surveillance purposes. It should not be regarded as investigational or for research. The [facility] is certified under the Clinical Laboratory Improvement Amendments of 1988 (CLIA-88) as qualified to perform high complexity clinical laboratory testing. us Everett Bang [employer] LAB MICROBIOLOGY - GENERAL OR DERABLES Final Result Performing Organization Address City/[facility]/ZIP Co de Phone Number [facility] [address] [place] [address] * XR Chest 1 View (04/06/2025 2:57 [...] Henrry Harrell MD on 04/06/2025 3:55 PM Narrative 04/06/2025 [...] Henrry Harrell MD on 04/06/2025 3:55 PM us Everett Beyer DO IMG XR PROCEDURES Final Resul t * [place] CRITICAL CARE, E/M 30-74 MINUTES (04/06/2025 2:56 [...] - 2.4 mg/dL 04/06/2025 3:33 PM EST [facility] Blood Venous blood specimen / Unknown Venipuncture / Unknown 04/06/2025 2:09 PM EST 04/06/2025 3:03 PM EST us Everett Beyer DO LAB BLOOD ORDERABLES Final Re sult [facility] [address] [place] [address] * (ABNORMAL) Renal function panel (04/06/2025 2:09 PM EST) Glucose, Plasma 164(H) 74 - 99 mg/dL 04/06/2025 3:33 PM EST [facility] BUN, Plasma 9 8 - 23 mg/dL 04/06/2025 3:33 PM EST [facility] Creatinine, Plasma 0.71 0.70 - 1.20 mg/dL 04/06/2025 3:33 PM EST [facility] BUN/Creatinine Ratio 13 04/06/2025 3:33 PM EST [facility] Sodium, Plasma 138 136 - 145 mmol/L 04/06/2025 3:33 PM EST [facility] Potassium, Plasma 4.2 3.6 - 4.9 mmol/L 04/06/2025 3:33 PM EST [facility] Chloride, Plasma 105 97 - 107 mmol/L 04/06/2025 3:33 PM EST [facility] CO2, Plasma 24 22 - 29 mmol/L 04/06/2025 3:33 PM EST [facility] Anion Gap 9 6 - 16 mmol/L 04/06/2025 3:33 PM EST [facility] Total Calcium, Plasma 8.2(L) 8.9 - 10.2 mg/dL 04/06/2025 3:33 PM EST [facility] Phosphorus, Plasma 3.6 2.5 - 4.5 mg/dL 04/06/2025 3:33 PM EST [facility] Albumin, Plasma 3.7 3.5 - 5.2 g/dL 04/06/2025 3:33 PM EST [facility] eGFRcr 98.1 mL/min/1.7 3m*2 04/06/2025 3:33 PM EST [facility] Comment:Reported eGFRcr in m L/min/1.73m2 is based the CKD-EPI 2020 equation that does not use a race coefficient. Blood Venous blood specimen / Unknown Venipuncture / Unknown 04/06/2025 2:09 PM EST 04/06/2025 3:03 PM EST us Everett Beyer DO LAB BLOOD ORDERABLES Final Re sult [facility] [address] [place] [address] * (ABNORMAL) CBC W/O Differential (04/06/2025 2:09 PM EST) WBC Count 8.57 3.70 - 10.30 10*3/uL LAB HEMATOLOGY METHOD 04/06/2025 3:19 PM EST [facility] RBC Count 3.89(L) 4.60 - 6.10 10*6/uL LAB HEMATOLOGY METHOD 04/06/2025 3:19 PM EST [facility] HGB 12.9(L) 13.7 - 17.5 g/dL LAB HEMATOLOGY METHOD 04/06/2025 3:19 PM EST [facility] HCT 38.5(L) 40.0 - 51.0 % LAB HEMATOLOGY METHOD 04/06/2025 3:19 PM EST [facility] Platelet Count 121(L) 155 - 369 10*3/uL LAB HEMATOLOGY METHOD 04/06/2025 3:19 PM EST [facility] MCV 99(H) 79 - 98 fL LAB HEMATOLOGY METHOD 04/06/2025 3:19 PM EST [facility] MCH 33.2(H) 26.0 - 32.0 pg LAB HEMATOLOGY METHOD 04/06/2025 3:19 PM EST [facility] MCHC 33.5 30.7 - 35.5 g/dL LAB HEMATOLOGY METHOD 04/06/2025 3:19 PM EST [facility] RDW 13.2 11.5 - 14.5 % LAB HEMATOLOGY METHOD 04/06/2025 3:19 PM EST [facility] MPV 10.7 8.8 - 12.5 fL LAB HEMATOLOGY METHOD 04/06/2025 3:19 PM EST [facility] nRBC 0.0 <=0.0 per 100 WBCs LAB HEMATOLOGY METHOD 04/06/2025 3:19 PM EST [facility] Blood Venous blood specimen / Unknown Venipuncture / Unknown 04/06/2025 2:09 PM EST 04/06/2025 3:06 PM EST us Everett Beyer DO LAB BLOOD ORDERABLES Final Re sult [facility] [address] [place] [address] * (ABNORMAL) Blood gas panel, arterial (04/06/2025 2:09 PM EST) pH, Arterial 7.32 7.31 - 7.42 LAB HEMATOLOGY METHOD 04/06/2025 3:03 PM EST [facility] pCO2, Arterial 48(H) 32 - 45 mmHg LAB HEMATOLOGY METHOD 04/06/2025 3:03 PM EST [facility] pO2, Arterial 121 >70 mmHg LAB HEMATOLOGY METHOD 04/06/2025 3:03 PM EST [facility] SO2, Measured, Arterial 99(H) 94 - 98 % LAB HEMATOLOGY METHOD 04/06/2025 3:03 PM EST [facility] Base Excess, Arterial -1.5 -2.0 - 3.0 mmol/L LAB HEMATOLOGY METHOD 04/06/2025 3:03 PM EST [facility] Bicarbonate, Calculated, Arterial 25 22 - 26 mmol/L LAB HEMATOLOGY METHOD 04/06/2025 3:03 PM EST [facility] Hematocrit, Whole Blood 40.4 40.0 - 51.0 % LAB HEMATOLOGY METHOD 04/06/2025 3:03 PM EST [facility] Sodium, Whole Blood 139 136 - 145 mmol/L LAB HEMATOLOGY METHOD 04/06/2025 3:03 PM EST [facility] Potassium, Whole Blood 4.0 3.6 - 4.9 mmol/L LAB HEMATOLOGY METHOD 04/06/2025 3:03 PM EST [facility] Chloride, Whole Blood 107 97 - 107 mmol/L LAB HEMATOLOGY METHOD 04/06/2025 3:03 PM EST [facility] Glucose, Whole Blood 158(H) 74 - 99 mg/dL LAB HEMATOLOGY METHOD 04/06/2025 3:03 PM EST [facility] Ionized Calcium, Whole Blood 4.5(L) 4.6 - 5.1 mg/dL LAB HEMATOLOGY METHOD 04/06/2025 3:03 PM EST [facility] Lactate, Arterial, Whole Blood 1.5 0.5 - 1.6 mmol/L LAB HEMATOLOGY METHOD 04/06/2025 3:03 PM EST [facility] Blood Arterial blood specimen / Unknown Arterial Puncture / Unknown 04/06/2025 2:09 PM EST 04/06/2025 3:02 PM EST us Everett Beyer DO LAB BLOOD ORDERABLES Final Re sult [facility] [address] [place] [address] * (ABNORMAL) Blood gas panel, arterial (04/06/2025 11:36 AM EST) pH, Arterial 7.27(L) 7.31 - 7.42 LAB HEMATOLOGY METHOD 04/06/2025 11:36 AM EST [facility] pCO2, Arterial 59(H) 32 - 45 mmHg LAB HEMATOLOGY METHOD 04/06/2025 11:36 AM EST [facility] pO2, Arterial 89 >70 mmHg LAB HEMATOLOGY METHOD 04/06/2025 11:36 AM EST [facility] SO2, Measured, Arterial 96 94 - 98 % LAB HEMATOLOGY METHOD 04/06/2025 11:36 AM EST [facility] Base Excess, Arterial -1.2 -2.0 - 3.0 mmol/L LAB HEMATOLOGY METHOD 04/06/2025 11:36 AM EST [facility] Bicarbonate, Calculated, Arterial 27(H) 22 - 26 mmol/L LAB HEMATOLOGY METHOD 04/06/2025 11:36 AM EST [facility] Hematocrit, Whole Blood 38.8(L) 40.0 - 51.0 % LAB HEMATOLOGY METHOD 04/06/2025 11:36 AM EST [facility] Sodium, Whole Blood 141 136 - 145 mmol/L LAB HEMATOLOGY METHOD 04/06/2025 11:36 AM EST [facility] Potassium, Whole Blood 4.2 3.6 - 4.9 mmol/L LAB HEMATOLOGY METHOD 04/06/2025 11:36 AM EST [facility] Chloride, Whole Blood 107 97 - 107 mmol/L LAB HEMATOLOGY METHOD 04/06/2025 11:36 AM EST [facility] Glucose, Whole Blood 155(H) 74 - 99 mg/dL LAB HEMATOLOGY METHOD 04/06/2025 11:36 AM EST [facility] Ionized Calcium, Whole Blood 4.5(L) 4.6 - 5.1 mg/dL LAB HEMATOLOGY METHOD 04/06/2025 11:36 AM EST [facility] Lactate, Arterial, Whole Blood 1.0 0.5 - 1.6 mmol/L LAB HEMATOLOGY METHOD 04/06/2025 11:36 AM EST [facility] Blood Arterial blood specimen / Unknown 04/06/2025 11:34 AM EST Vivek Vitale MD LAB BLOOD ORDERABLES Final Resu lt [facility] [address] [place] [address] * Surgical Pathology Exam (04/06/2025 11:36 AM EST) Case Report Surgical Pathology Case: [id number] Authorizing Provider: Vivek Vitale MD Collected: 04/06/2025 1136 Ordering Location: [facility] Received: 04/06/2025 1422 Pathologist: Cindy Hammer MD Specimens: A) - Lymph Node (specify site):, Level 8 B) - Esophagus, esophagogastrectom y C) - Esophagus, esophageal anastomotic margin D) - Esophagus, gastric anastomotic margin E) - Esophagus, final gastric margin 10:32 AM EST [facility] Final Diagnosis A. LYMPH NODE, [...] - NEGATIVE FOR MALIGNANCY. 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 All immunohistochemist ry, in situ hybridization, and histochemical tests were developed by and are performed at the [facility], [address] [place] [address]. All tests reported here, except those addressing [...] likelihood of false negativity on decalcified specimens. 10:32 AM [facility] Gross Description A. LEVEL 8 Specimen received [...] cm in greatest dimension. Gross photographs taken. Accounts Payable Clerk sections are submitted as follows: B1-B3 esophageal [...] node, bisected Cold Time: 1h 59m Nancy Houser. ESOPHAGEAL ANASTOMOTIC MARGIN Specimen received fresh and [...] entirely in D1. Cold Time: 1h 31m Nancy Dickey E. FINAL GASTRIC MARGIN Specimen received fresh and placed in formalin labeled f inal gastric margin is a 4.0 x 2.6 x 1.8 cm partial gastrectomy with an 8.6 cm staple line. Serosa is orta-pink and smooth. Opposing margin is opened. The specimen is opened to reveal a orta-pink and glistening mucosa with prominent foldings. No abnormalities are grossly identified. Accounts Payable Clerk sections of margin to mucosa submitted in E1, en face. Cold Time: 1h 30m Nancy Dickey 10:32 AM EST [facility] Note: A resident was involved in the service. I attest I examined the relevant preparations for the specimens and confirmed the diagnosis or interpretation. 10:32 AM EST [facility] Tissue Structure of lymph node [...] Vitale MD LAB PATHOLOGY ORDERABLES Final Result [facility] [address] [place] [address] * (ABNORMAL) Blood gas panel, arterial (04/06/2025 8:20 AM EST) pH, Arterial 7.32 7.31 - 7.42 LAB HEMATOLOGY METHOD 04/06/2025 8:30 AM EST [facility] pCO2, Arterial 53(H) 32 - 45 mmHg LAB HEMATOLOGY METHOD 04/06/2025 8:30 AM EST [facility] pO2, Arterial 220 >70 mmHg LAB HEMATOLOGY METHOD 04/06/2025 8:30 AM EST [facility] SO2, Measured, Arterial 100(H) 94 - 98 % LAB HEMATOLOGY METHOD 04/06/2025 8:30 AM EST [facility] Base Excess, Arterial 0.3 -2.0 - 3.0 mmol/L LAB HEMATOLOGY METHOD 04/06/2025 8:30 AM EST [facility] Bicarbonate, Calculated, Arterial 27(H) 22 - 26 mmol/L LAB HEMATOLOGY METHOD 04/06/2025 8:30 AM EST [facility] Hematocrit, Whole Blood 36.3(L) 40.0 - 51.0 % LAB HEMATOLOGY METHOD 04/06/2025 8:30 AM EST [facility] Sodium, Whole Blood 142 136 - 145 mmol/L LAB HEMATOLOGY METHOD 04/06/2025 8:30 AM EST [facility] Potassium, Whole Blood 3.8 3.6 - 4.9 mmol/L LAB HEMATOLOGY METHOD 04/06/2025 8:30 AM EST [facility] Chloride, Whole Blood 107 97 - 107 mmol/L LAB HEMATOLOGY METHOD 04/06/2025 8:30 AM EST [facility] Glucose, Whole Blood 103(H) 74 - 99 mg/dL LAB HEMATOLOGY METHOD 04/06/2025 8:30 AM EST [facility] Ionized Calcium, Whole Blood 4.7 4.6 - 5.1 mg/dL LAB HEMATOLOGY METHOD 04/06/2025 8:30 AM EST [facility] Lactate, Arterial, Whole Blood 0.9 0.5 - 1.6 mmol/L LAB HEMATOLOGY METHOD 04/06/2025 8:30 AM EST [facility] Blood Arterial blood specimen / Unknown 04/06/2025 8:20 AM EST 04/06/2025 8:29 AM EST Comment:Pre-op diagnosis: Malignant neoplasm of lower third of esophagus us Vivek Vitale MD LAB BLOOD ORDERABLES Final Resu lt Performing Organization Address City/[facility]/ZIP Co de Phone Number [facility] [address] [place] [address] * Type and screen (04/06/2025 7:05 AM EST) ABO/Rh O Positive 04/06/2025 7:17 AM EST [facility] Antibody Screen Negative 04/06/2025 7:17 AM EST [facility] Specimen Expiration 04/09/2025 23:59 04/06/2025 7:17 AM EST [facility] Blood Venous blood specimen / Unknown Venipuncture / Unknown 04/06/2025 7:05 AM EST 04/06/2025 7:17 AM EST Vivek Vitale MD LAB BLOOD BANK TEST ORDERABLES Final Result Performing Organization Address [facility] de Phone Number BLOOD BANK [address] [place] [address] documented in this encounter Visit Diagnoses Diagnosis [...] Electrolyte and fluid disorders not elsewhere classified Malignant neoplasm of lower third of esophagus documented in this encounter Admitting Diagnoses Diagnosis Esophageal cancer Malignant neoplasm of esophagus, unspecified site documented in this encounter Administered Medications Inactive Administered Medications - up to 3 most recent administrations Medication Order MAR Action Action Date Dose Rate Site acetaminophen (Tylenol) 160 MG/5ML solution 960 mg [...] Given 04/12/2025 9:23 AM EST 10 mg bupivacaine PF (Marcaine) 0.25 % injection As needed, Starting on Sun04/06/25 at 1253, Until Sun04/06/25 at 1426, Routine, Intraprocedure Given 04/06/2025 12:53 PM EST 30 mL bupivacaine PF (Marcaine) 0.5 % injection As needed, Starting on Sun04/06/25 at 1253, Until Sun04/06/25 at 1426, Routine, Intraprocedure Given 04/06/2025 12:53 PM EST 30 mL enoxaparin (Lovenox) syringe 40 mg 40 mg, Subcutaneous, Daily, First dose on Sun04/07/25 at 1200, Until Discontinued, Routine Given 04/15/2025 9:34 AM EST 40 mg Right Upper Abdomen Given 04/14/2025 8:11 AM EST 40 mg Le ft Upper Abdomen Given 04/13/2025 8:20 AM EST 40 mg Le ft Lower Abdomen Fiber Powder 1 packet 1 packet, Per J Tube, 2 times daily, First dose on Sun04/12/25 at 0915, Until Discontinued, Routine Given 04/15/2025 9:35 AM EST 1 packet Given 04/14/2025 8:45 PM EST 1 packet Given 04/14/2025 8:11 AM EST 1 packet hydrALAZINE (Apresoline) injection 10 mg 10 mg, [...] Given 04/10/2025 4:35 PM EST 5 mg ibuprofen 100 MG/5ML suspension 400 mg 400 mg, Per J Tube, Every 6 hours scheduled, First dose on Sun04/08/25 at 1200, Until Discontinued, Routine Given 04/15/2025 5:34 AM EST 400 mg Given 04/14/2025 11:21 PM EST 400 mg Given 04/14/2025 6:20 PM EST 400 mg labetalol (Normodyne,Trandate) injection 10 mg 10 [...] > 180 and HR > 60 BPM Levothyroxine Sodium (Thyquidity) 100 MCG/5ML oral solution 200 mcg 200 mcg, Per J Tube, Every morning, First dose on Sun04/08/25 at 0930, Until Discontinued, Routine Given 04/15/2025 5:34 AM EST 200 mcg Given 04/13/2025 5:17 AM EST 200 mcg Given 04/12/2025 6:46 AM EST 200 mcg mometasone-formoterol (Dulera 100) 100-5 MCG/ACT inhaler 2 puff 2 puff, Inhalation, 2 times daily, First dose on Sun04/07/25 at 0900, Until Discontinued, Routine Given 04/15/2025 9:30 AM EST 2 puffs Given 04/14/2025 8:46 PM EST 2 puffs Given 04/14/2025 8:11 AM EST 2 puffs omeprazole-sodium bicarbonate (Konvomep) 2-84 MG/ML suspension 40 [...] Given 04/11/2025 3:35 AM EST 5 mg phenol (Chloraseptic) 1.4 % mouth/throat spray 1 spray 1 spray, Mouth/Throat, Every 2 hour PRN, sore throat, Instruct patient to spit out after 15 seconds., Starting on Sun04/09/25 at 0641 Given 04/10/2025 10:02 AM EST 1 spray senna (Senokot) 8.8 MG/5ML syrup 8.8 mg 8.8 mg, Per J Tube, Nightly, First dose on Sun04/09/25 at 2100, Until Discontinued, Routine Given 04/14/2025 8:45 PM EST 8.8 mg Given 04/13/2025 9:31 PM EST 8.8 mg Given 04/12/2025 8:59 PM EST 8.8 mg documented in this encounter Active and Recently [...] Refused)1211 (Given - Provider: Scott De La Cruz RN)1800 (Canceled Entry - Provider: Automatic Discharge Provider [...] Discontinued, Routine 0821 (Given - Provider: Khoi Flores, LEEANNE) 0811 (Not Given - Provider: Khoi Flores [...] - Provider: Scott De La Cruz, LEEANNE) Fiber Powder 1 packet 1 packet, Per J Tube, 2 times daily, First dose on Sun04/12/25 at 0915, Until Discontinued, Routine 0827 (Given - Provider: Khoi Flores, LEEANNE)2132 (Given - Provider: Jeanie Be RN) 0811 (Given - Provider: Khoi Flores RN)2045 (Given - Provider: Jeanie Be RN) 0935 (Given - Provider: Scott De La Cruz, LEEANNE) ibuprofen 100 MG/5ML suspension 400 mg 400 mg, Per J Tube, Every 6 hours scheduled, First dose on Sun04/08/25 at 1200, Until Discontinued, Routine 0516 (Given - Provider: Jessica Daniels RN)1201 (Given - Provider: Khoi Flores, LEEANNE)1843 (Given - Provider: Khoi Flores, RN)2305 (Given - Provider: Jeanie Be RN) 0521 (Not Given - Provider: Jeanie Be RN - Reason: Hold for condition: must add comment - Comment: J tube clamped per MD. )1223 (Given - Provider: Khoi Flores, LEEANNE)1820 (Given - Provider: Khoi Flores RN)2321 (Given - Provider: Jeanie Be RN) 0534 (Given - Provider: Jeanie Be, LEEANNE)1212 (Not Given - Provider: Scott De La Cruz, RN - Reason: Patient/Family/Represen tative Refused)1800 (Canceled Entry [...] Discontinued, Routine 0517 (Given - Provider: Jessica Daniels, LEEANNE) 0520 (Not Given - Provider: Jeanie Be, LEEANNE - Reason: Hold for condition: must add comment - Comment: J tube clamped per MD) 0534 (Given - Provider: Jeanie Be, LEEANNE) mometasone-formoterol (Dulera 100) 100-5 MCG/ACT inhaler 2 puff 2 puff, Inhalation, 2 times daily, First dose on Sun04/07/25 at 0900, Until Discontinued, Routine 0820 (Given - Provider: Khoi Flores, LEEANNE)2132 (Given - Provider: Jaenie Be, LEEANNE) 0811 (Given - Provider: Khoi Flores, RN)2046 (Given - Provider: Jeanie Be, LEEANNE) 0930 (Given - Provider: Scott De La Cruz, LEEANNE) omeprazole-sodium bicarbonate (Konvomep) 2-84 MG/ML suspension 40 mg 40 mg, Per J Tube, Daily, First dose on Sun04/09/25 at 0900, Until Discontinued, Routine 0820 (Given - Provider: Khoi FloresLEEANNE) 0811 (Given - Provider: Khoi Flores RN) 0933 (Given - Provider: Scott De La Cruz RN) Potassium Chloride 20 MEQ/15ML (10%) solution 20 mEq (COMPLETED) 20 mEq, Per J Tube, Once, 1 dose, On Sun04/13/25 at 1715, Routine 1843 (Given - Provider: Khoi Flores RN) Potassium Chloride 20 MEQ/15ML (10%) solution 20 mEq (COMPLETED) 20 mEq, Per J Tube, Once, 1 dose, On Sun04/14/25 at 0845, Routine 0854 (Given - Provider: Khoi Flores RN) potassium chloride IVPB 10 mEq () 10 mEq, Intravenous, Every 1 hour, 6 doses, First dose on Sun04/13/25 at 0815, Last dose on Sun04/13/25 at 1315, Routine 0838 (New Bag - Provider: Khoi Flores RN)1034 (New Bag - Provider: Khoi Flores RN)1154 (New Bag - Provider: Khoi Flores RN)1230 (Not Given - Provider: Khoi Flores RN - Reason: Order changed - Comment: d/c per Chu Crenshaw APRN)1234 (Not Given - Provider: Khoi Flores RN - Reason: Order changed - Comment: d/c per Chu Crenshaw APRN)1235 (Not Given - Provider: Khoi Flores RN - Reason: Patient/Family/Repre sentative Refused - Comment: d/c per Chu Den BAJWA) senna (Senokot) 8.8 MG/5ML syrup 8.8 mg 8.8 mg, Per J Tube, Nightly, First dose on Nikky 04/09/25 at 2100, Until Discontinued, Routine 213 (Given - Provider: Jeanie Be RN) 2044 [...] Khoi Flores RN)1223 (Given - Provider: Khoi Flores RN)1820 (Given - Provider: Khoi Flores RN)2225 (Given - Provider: Jeanie Be RN) 0340 (Given - Provider: Jeanie Be RN)0932 (Given - Provider: Scott De La Cruz, RN) oxyCODONE (Roxicodone) 1 MG/ML solution 5 [...] greater 0517 (See Alternative - Provider: Jessica Daniels RN)0922 (See Alternative - Provider: Khoi Flores RN)1614 (See Alternative - Provider: Khoi Flores RN)2131 (See Alternative - Provider: Jeanie Be RN) 0342 (See Alternative - Provider: Jeanie Be RN)0812 (See Alternative - Provider: Khoi Flores RN)1223 (See Alternative - Provider: Khoi Flores RN)1820 (See Alternative - Provider: Khoi Flores RN)2225 (See Alternative - Provider: Jeanie Be RN) 0340 (See Alternative - Provider: Jeanie Be RN)0932 (See Alternative - Provider: Scott De La Cruz, LEEANNE) phenol (Chloraseptic) 1.4 % mouth/throat spray 1 spray 1 spray, Mouth/Throat, Every 2 hour PRN, sore throat, Instruct patient to spit out after 15 seconds., Starting on Nikky 04/09/25 at 0641 Linked Groups Order Group 1: hydrALAZINE (Apresoline) injection 5 mgJump to med 5 mg, Intravenous, Every 4 hours PRN, Starting on 04/06/25 at 1338, Until Sun04/15/25 at 1825, Routine, [...] documented as of this encounter Care Teams Core Blower Operator Relationship Specialty Start Date End Date Jatinder Clifford MD PCP - General Family Medicine 11/05/24 documented as of this encounter
--- OUTSIDE RECORDS SUMMARY | 2025-04-19 19:50 | XMS_ITS | Encounter Summary ---
Author Organization Healthcare Address [address] [place] [address] Care Team Providers Care Material Inspector Name Role Phone Jatinder Clifford MD Primary Care Provider Samra vailable Reason for Visit * Reason Comments Feeding Tube Problem Encounter Details Date Type Department Care Team ([facility] st Contact Info) Description 04/19/2025 7:50 PM EST - 04/19/2025 10:02 PM EST Emergency [facility] Emergency Department [address] [place] [address] Feeding tube dysfunction, initial encounter (Primary Dx) Discharge Disposition: Home or Self [...] the past 12 m [facility], were you homeless or living in a fpc (including now)? No 04/07/2025 [facility] Utilities Answer Date Recorded In the past [...] Sign Reading Time Taken Comments Blood Pressure 178/75 04/19/2025 7:25 PM EST Pulse 71 04/19/2025 7:25 PM EST Temperature 36.3 C (97.3 F) 04/19/2025 7:25 PM EST Respiratory Rate 18 04/19/2025 7:25 PM EST Oxygen Saturation 95% 04/19/2025 7:25 PM EST Inhaled Oxygen Concentration - - Weight 107 kg (236 lb) 04/19/2025 7:25 PM EST Height - - Body Mass Index 32.01 04/10/2025 8:18 PM EST documented in this encounter Functional Status * Calculated C-SSRS Risk Score (Lifetime/Recent) Answer Date of Assessment Author No Risk Indicated 04/19/2025 8:23 PM EST Joselin Youngblood, RN * Question Answer Date of Assessment Author 1. Wish to be (Past 1 Month) No 025 8:23 PM EST Joselin Youngblood, RN 2. Non-Specific Active Suici isabel Thoughts (Past 1 Month) No 04/19/2025 8:23 PM EST Joselin Youngblood, RN 6. Suicidal Behavior (Lifetime) No 8:23 PM EST Joselin Youngblood, RN documented as of this encounter Discharge Instructions * Discharge Instructions* Rachel Herndon PA - 04/19/2025 9:41 PM EST Follow up with blue surgery team as scheduled. Return to ER for any concerning symptoms. documented in this encounter Medications at Time of Discharge acetaminophen (Tylenol) 160 MG/5ML solution 30 mL by Per J Tube route every 6 hours. 1200 mL 5 armodafinil (Nuvigil) 200 MG tablet Take 1 tablet by mouth daily. aspirin 81 MG chewable tablet Chew 1 tablet daily. 90 tablet 5 Boost [facility] (Boost) [facility] liquid 237 mL by Per PEG Tube route 4 times a day. 70418 mL 5 5 06/15/19 buPROPion XL (Wellbutrin XL) 300 MG 24 hr tablet Take 1 tablet by mouth daily. Do not crush, chew, or split. [place] [facility] [place] supply [...] as of this encounter Miscellaneous Notes * H&P - Misha Aguilera DO - 04/19/2025 8:50 PM EST Images from the original note were not included. [facility] Department of Surgery Division of Thoracic Surgery History & Physical Note History of Present Illness: Chief Complaint: J tube removal Edwin Cook is a 70 y.o. male with PMH recent TIA, Crohn's Disease (no meds), JUAN DIEGO, HLD, GERD, tobacco abuse, obesity and recently diagnosed esophageal cancer who is s/p [place] [facility] esophagectomy and J tube placement on 04/06/2025. He presents to the ED today after removing his J tube at home. He reports cutting the stitches around 3 pm and subsequently the tube fell out. He denies any symptoms or complaints. He has no abdominal pain, nausea, or vomiting. Review of Systems: Relevant review of systems was obtained as able and is negative unless stated above in HPI. Past Medical History: Past Medical History[1] Past Surgical History: Surgical History[2] Allergies And Reactions: Allergies[3] Family Medical History: Family History[4] Social History: Tobacco: Tobacco Use: Medium Risk (04/06/2025) Patient History Smoking Tobacco Use: Former Smokeless Tobacco Use: Never Passive Exposure: Past Alcohol: No Illicit drug use: No Travel History: Travel Screening Question Response In the last 10 days, have you been in contact with someone who was confirmed or suspected to have Coronavirus/COVID-19? No Have you had a COVID-19 viral test in the last 10 days? No Do you have any of the following new or worsening symptoms? No Have you traveled internationally or domestically in the last month? No Immunizations: There is no immunization history on file for this patient. I have updated and confirmed the past medical, surgical, family and social history. Home Medications: Prior to Admission medications Medication Sig Start Date End Date Taking? Authorizing Provider acetaminophen (Tylenol) 160 MG/5ML solution 30 mL by Per J Tube route every 6 hours. 04/15/25 Mario Alberto Franklin MD armodafinil (Nuvigil) 200 MG tablet Take 1 tablet by mouth daily. Provider, Historical aspirin 81 MG chewable tablet Chew 1 tablet daily. Patient taking differently: Chew 1 tablet every other day. 10/28/24 Liliane Hussein MD [Paused] Boost [facility] (Boost) [facility] liquid 237 mL by Per PEG Tube route 4 times a day. Wait to take this until your doctor or other care provider tells you to start again. 12/17/24 06/15/25 Maria Del Rosario Logan MD buPROPion XL (Wellbutrin XL) 300 MG 24 hr tablet Take 1 tablet by mouth daily. Do not crush, chew, or split. Provider, Historical [place] [facility] [place] months supply of gravity bags and syringes with monthly order 12/17/24 Maria Del Rosario Logan MD fenofibrate (Triglide) 160 MG tablet Take 1 tablet by mouth daily. Provider, Historical fluticasone-salmeterol (Advair Diskus) 250-50 MCG/ACT diskus inhaler Inhale 1 puff 2 times a day. Rinse mouth with water after use to reduce aftertaste and incidence of candidiasis. Do not swallow. Provider, Historical ibuprofen 100 MG/5ML suspension 20 mL by Per J Tube route every 6 hours for 10 days. 04/15/25 04/25/25 Mario Alberto Franklin MD isosource 1.5 Piotr/mL liquid 65 mL/hr by Per J Tube route continuously at 65 mL/hr. Equivalent Substitutions Allowed? Yes 04/14/25 07/13/25 Chu Davis APRN Levothyroxine Sodium (Thyquidity) 100 MCG/5ML oral solution 10 mL by Per J Tube route every morning. 04/16/25 04/26/25 Mario Alberto Franklin MD losartan (Cozaar) 25 MG tablet Take 1 tablet by mouth daily. Provider, Historical ondansetron ODT (Zofran-ODT) [address] 1 TABLET UNDER THE TONGUE AND ALLOW TO DISSOLVE 2 TIMES EACH DAY FOR 2 DAYS AFTER CHEMOTHERAPY 12/18/24 Provider, Historical oxyCODONE (Roxicodone) 1 MG/ML solution 10 mL by Per J Tube route every 6 hours as needed for severe pain. By Day 3, please start using only 5mL every 6 hours 04/15/25 Mario Alberto Franklin MD pantoprozole (Protonix) 2 mg/mL suspension 20 mL by Per J Tube route daily for 10 days. 04/15/25 04/25/25 Mario Alberto Franklin MD prochlorperazine (Compazine) 10 MG tablet Take 1 tablet by mouth every 6 hours as needed for nauseaor vomiting. 12/18/24 Provider, Historical rosuvastatin (Crestor) 20 MG tablet Take 1 tablet by mouth daily. 10/27/24 Liliane Hussein MD senna (Senokot) 8.8 MG/5ML syrup 5 mL by Per J Tube route nightly for 10 days. 04/15/25 04/25/25 Mario Alberto Franklin MD tamsulosin (Flomax) 0.4 MG 24 hr capsule Take 1 capsule by mouth daily. 10/28/24 Provider, Historical aspirin 81 MG oral suspension 81 mL by Per J Tube route daily for 10 days. 04/15/25 04/15/25 Mario Alberto Franklin MD levothyroxine (Synthroid, Levoxyl) 200 MCG tablet Take 1 tablet by mouth daily. 04/15/25 Provider, Historical omeprazole (PriLOSEC) [address] capsule Take 1 capsule by mouth daily. 03/10/25 04/15/25 Provider, Historical oxyCODONE (Roxicodone) 1 MG/ML solution Take 10 mL by mouth every 6 hours as needed for severe pain. By Day 3, please start using only 5mL every 6 hours 04/15/25 04/15/25 Mario Alberto Franklin MD Anti-Thrombotic Medications: Is this patient taking warfarin, new oral anti-coagulant, or anti-platelet medication? No If Yes, What Medication: N/A Current Hospital Medications: Current Medications[5] Objective: Visit Vitals BP (!) 178/75 (BP Location: Right arm, Patient Position: Sitting) Pulse 71 Temp 36.3 ??C (97.3 ??F) (Oral) Wt 107 kg (236 lb) SpO2 95% BMI 32.01 kg/m?? Physical Exam: GENERAL: WD, WN, NAD EYES: No scleral icterus or conjunctivitis HENT: Atraumatic, normocephalic, nares patent, mucus membranes moist NECK: Supple, no JVD, no evidence of bruit bilaterally RESP/CHEST: CTA bilaterally CARD: regular rate and rhythm, normal S1 and S2, no murmur, rub, or gallop Extremities: No lower extremity edema present. No cyanosis or clubbing. Pedal pulses palpable +2. GI: No organomegaly or masses. Soft, Nontender, nondistended. BS present and normoactive x 4 quadrants SKIN: No rash, sores, lesions or subcutaneous nodules. NEURO: AAOx4. Motor intact and no focal deficits PSYCH: Mood and affect congruent and appropriate to situation. Laboratory: CBC WBC ?? Hb ?? Plt ?? Hct ?? INR ??, PTT ?? BMP Na ?? Cl ?? BUN ?? Glu ?? K ?? Co2 ?? Cr ?? Ca ?? Mg ??, Phos ?? Imaging: Assessment & Plan: Edwin Cook is a 70 y.o. male with PMH recent TIA, Crohn's Disease (no meds), JUAN DIEGO, HLD, GERD, tobacco abuse, obesity and recently diagnosed esophageal cancer who is s/p [place] [facility] esophagectomy and J tube placement on 04/06/2025. He presents to the ED today after removing his J tube at home. He reports cutting the stitches around 3 pm and subsequently the tube fell out. He denies any symptoms or complaints. He has no abdominal pain, nausea, or vomiting. - J tube replaced at bedside without difficulty. PEG tube contrast study performed and shows new tube properly placed in the small bowel with no extravasation. - Education performed and patient instructed to not rmeove sutures prior to removal in clinic and to call with any qquestions or concerns. Patient and expressed understanding. All questions answered in detail. This Consult, Assessment, and Plan has been discussed with Dr. Westfall, Attending Physician Misha Aguilera, DO 04/19/25 8:50 PM [1] Past Medical History: Diagnosis Date Esophageal cancer Hypothyroidism Sleep apnea Stroke (CMS/HCC) 10/25/2024 [2] Past Surgical History: Procedure Laterality Date BACK SURGERY x4 LUMBAR FUSION PEG TUBE REMOVAL 11/2024 SKIN CANCER EXCISION x2 [3] No Known Allergies [4] Family History Problem Relation Name Age of Onset Lung cancer Father Anesthesia problems Neg Hx Malig Hyperthermia Neg Hx [5] No current facility-administered medications for this encounter. Current Outpatient Medications Medication Sig Dispense Refill acetaminophen (Tylenol) 160 MG/5ML solution 30 mL by Per J Tube route every 6 hours. 1200 mL 0 armodafinil (Nuvigil) 200 MG tablet Take 1 tablet by mouth daily. aspirin 81 MG chewable tablet Chew 1 tablet daily. (Patient taking differently: Chew 1 tablet everyother day.) 90 tablet 0 [Paused] Boost [facility] (Boost) [facility] liquid 237 mL by Per PEG Tube route 4 times a day. 76925 mL 5 buPROPion XL (Wellbutrin XL) 300 MG 24 hr tablet Take 1 tablet by mouth daily. Do not crush, chew, or split. [place] [facility] [place] supply of gravity bags and syringes with monthly order 1 each 5 fenofibrate (Triglide) 160 MG tablet Take 1 tablet by mouth daily. fluticasone-salmeterol (Advair Diskus) 250-50 MCG/ACT diskus inhaler Inhale 1 puff 2 times a day. Rinse mouth with water after use to reduce aftertaste and incidence of candidiasis. Do not swallow. ibuprofen 100 MG/5ML suspension 20 mL by Per J Tube route every 6 hours for 10 days. 800 mL 0 isosource 1.5 Piotr/mL liquid 65 mL/hr by Per J Tube route continuously at 65 mL/hr. Equivalent Substitutions Allowed? Yes 1 each 0 Levothyroxine Sodium (Thyquidity) 100 MCG/5ML oral solution 10 mL by Per J Tube route every morning. 100 mL 0 losartan (Cozaar) 25 MG tablet Take 1 tablet by mouth daily. ondansetron ODT (Zofran-ODT) [address] 1 TABLET UNDER THE TONGUE AND ALLOW TO DISSOLVE 2 TIMES EACH DAY FOR 2 DAYS AFTER CHEMOTHERAPY oxyCODONE (Roxicodone) 1 MG/ML solution 10 mL by Per J Tube route every 6 hours as needed for severe pain. By Day 3, please start using only 5mL every 6 hours 400 mL 0 pantoprozole (Protonix) 2 mg/mL suspension 20 mL by Per J Tube route daily for 10 days. 200 mL 0 prochlorperazine (Compazine) 10 MG tablet Take 1 tablet by mouth every 6 hours as needed for nauseaor vomiting. rosuvastatin (Crestor) 20 MG tablet Take 1 tablet by mouth daily. 30 tablet 0 senna (Senokot) 8.8 MG/5ML syrup 5 mL by Per J Tube route nightly for 10 days. 240 mL 5 tamsulosin (Flomax) 0.4 MG 24 hr capsule Take 1 capsule by mouth daily. Cosigned by Real Westfall MD at 04/20/2025 10:42 AM EST Associated attestation - Real Westfall MD - 04/20/2025 10:42 AM EST Attending Addendum: I saw and evaluated the patient with the resident/fellow. I reviewed and interpreted the patient's history, labs, imaging/studies to develop the plan and discussed these with the resident/fellow in a teaching fashion. I agree with the note's findings and plan as documented. * ED Provider Notes - Rachel Herndon PA - 04/19/2025 7:17 PM EST Images from the original note were not included. - HPI Chief Complaint Patient presents with Feeding Tube Problem This is a 70-year-old male who presents to the ER for evaluation of dislodged J- tube. Patient states that the sutures were very loose and did not seem to be functioning properly so he cut them. He states a couple of hours later the tube fell out and was in his hand. He presented here for placement of J-tube which he depends on for his nutrition. Patient has no other complaints. Patient History Past Medical History[1] Surgical History[2] Family History[3] Social History[4] Allergies: Allergies[5] Physical Exam ED Triage Vitals [04/19/251924] Temp Heart Rate Resp BP 36.3 ??C (97.3 ??F) 71 18 (!) 178/75 SpO2 Temp Source Heart Rate Source Patient Position 95 % Oral Monitor Sitting BP Location FiO2 (%) Right arm -- Physical Exam Constitutional: Appearance: Normal appearance. HENT: Head: Normocephalic. Mouth/Throat: Mouth: Mucous membranes are moist. Eyes: General: No scleral icterus. Pupils: Pupils are equal, round, and reactive to light. Cardiovascular: Rate and Rhythm: Normal rate and regular rhythm. Pulses: Normal pulses. Heart sounds: Normal heart sounds. Neurological: Mental Status: He is alert. EASI ?? Total Score: 0 [place] Coma Scale Score: 15 TRST Assessment Total: 0 ED Course & MDM - Assessment: 70 y.o. male presents to ED with complaint of dislodged J-tube. In order to fully explore the differential diagnosis the following treatments and tests were ordered: ED Medication Administration from 04/19/2025 1917 to 04/19/20252214 Date/Time Order Dose Route Action 04/19/20252110 EST iohexol (OMNIPaque) 240 MG/ML injection 50 mL 50 mL Per PEG Tube Given All Other Orders Ordered Status Ordering Provider 04/19/252046 XR PEG Tube Check Portable Once Final result MULU MORSE ED Course as of 04/19/252214 Ashley Apr 19, 20252211 XR PEG Tube Check Portable IMPRESSION: Left hemiabdomen enteric tube as above with contrast opacification loops of small bowel. [RM] 2213 Surgery came to the ER to evaluate the patient. They replaced the G-tube here in the ER. Peg tube check x-ray was obtained and showed contrast in the small bowel. Surgery felt the patient was ready for discharge. Patient was discharged home with instructions to follow-up with surgery team as scheduled and return to the ER for any worsening symptoms or concerning symptoms. [RM] ED Course User Index [RM] Rachel Herndon PA Clinical Impressions as of 04/19/252214 Feeding tube dysfunction, initial encounter Social Determinates of Health Risks (including Economic Stability, Education and level of understanding, Healthcare access and quality and concerning social factors): None identified on this visit Ultimately, this patient was Was discharged Home (Discharge) The encounter diagnosis was Feeding tube dysfunction, initial encounter. . Patient was counseled on the diagnoses. Discharge medications if any are listed below. Listed medications are thought be either curative for listed diagnoses or will help control ongoing symptoms. Patient is requested to follow up with General Surgery in order to obtain specialty care. Instructions on follow upas well as precautions to return to the ER provided verbally by the EM provider, as well as writtenin patients discharge education packet. ED Prescriptions None Discharge Instructions Follow up with blue surgery team as scheduled. Return to ER for any concerning symptoms. Disposition Discharge AVS (Maltese Snapshot) - Printed 04/19/2025 - [1] Past Medical History: Diagnosis Date Esophageal cancer Hypothyroidism Sleep apnea Stroke (CMS/HCC) 10/25/2024 [2] Past Surgical History: Procedure Laterality Date BACK SURGERY x4 LUMBAR FUSION PEG TUBE REMOVAL 11/2024 SKIN CANCER EXCISION x2 [3] Family History Problem Relation Name Age of Onset Lung cancer Father Anesthesia problems Neg Hx Malig Hyperthermia Neg Hx [4] Tobacco Use Smoking status: Former Current packs/day: 0.00 Average packs/day: 3.0 packs/day for 33.0 years (99.0 ttl pk-yrs) Types: Cigarettes Start date: 1966 Quit date: 2000 Years since quittin.9 Passive exposure: Past Smokeless tobacco: Never Vaping Use Vaping status: Never Used Substance Use Topics Alcohol use: Not Currently Comment: 1-2 servings weekly Drug use: Never [5] No Known Allergies Rachel Herndon PA 04/19/252214 Cosigned by Marc Dawson MD at 04/22/2025 5:29 PM EST Associated attestation - Marc Dawson MD - 04/22/2025 5:29 PM EST I attest to being involved in providing substantive part of the medical decision making in patient care. * ED Triage Notes - Meli Herrera RN - 04/19/2025 7:17 PM EST Pt feeding tube got pulled out, pt got it placed last Sunday. documented in this encounter Plan of Treatment Upcoming Encounters Date Type Department Care Team (Late st Contact Info) Description 08/20/2025 10:15 AM EDT Office Visit [facility] [address] [facility] [place] [address] Everett Beyer, DO [address] [facility] [address] [place] [address] documented as of this encounter Goals Goal Patient Goal Type Associated Problems Recent Progress Patient-Stated? Author Autogenerat ed Goal Care Plan Autogenerated Problem No Nicole Ty documented as of this encounter Procedures Procedure Name Priority Date/Time Associated Diagnosis Comments XR PEG TUBE CHECK PORTABLE STAT 04/19/2025 9:18 PM EST documented in this encounter Results * XR PEG Tube Check Portable (04/19/2025 9:18 PM EST) Anatomical Region Laterality Modality Body Digital Radiogra phy Impressions 04/19/2025 9:58 PM EST Left hemiabdomen enteric tube as above with contrast opacification loops of small bowel. CRITICAL RESULT: No. COMMUNICATION: Per this written report. Drafted by Isaac Ngo MD on 04/19/2025 9:56 PM Final report signed by Isaac Ngo MD on 04/19/2025 9:58 PM Narrative 04/19/2025 9:58 PM EST CLINICAL INDICATION: s/p j tube replacement TECHNIQUE: XR PEG TUBE CHECK PORTABLE COMPARISON: PET/CT 03/12/2025. FINDINGS: Percutaneous enteric tube projects terminating within the left mid hemiabdomen. Opacification loops of small bowel after instillation of contrast through the enteric tube. Nonobstructive bowel gas pattern within included abdomen and pelvis. Procedure Note Isaac Ngo MD - 04/19/2025 CLINICAL INDICATION: s/p j tube replacement TECHNIQUE: XR PEG TUBE CHECK PORTABLE COMPARISON: PET/CT 03/12/2025. FINDINGS: Percutaneous enteric tube projects terminating within the left midhemiabdomen. Opacification loops of small bowel after instillation ofcontrast through the enteric tube. Nonobstructive bowel gas pattern withinincluded abdomen and pelvis. IMPRESSION: Left hemiabdomen enteric tube as above with contrast opacification loopsof small bowel. CRITICAL RESULT: No. COMMUNICATION: Per this written report. Drafted by Isaac Ngo MD on 04/19/2025 9:56 PM Final report signed by Isaac Ngo MD on 04/19/2025 9:58 PM Real Westfall MD IMG XR PROCEDURES Final Resu lt documented in this encounter Visit Diagnoses Diagnosis Feeding tube dysfunction, initial encounter- Primary documented in this encounter Administered Medications Inactive Administered Medications - up to 3 most recent administrations Medication Order MAR Action Action Date Dose Rate Site iohexol (OMNIPaque) 240 MG/ML injection 50 mL 50 mL, Per PEG Tube, Once in imaging, 1 dose, Starting on 04/19/25 at 2101, Until 04/19/25 at 2110, Routine, Imaging Protocol Orders Given 04/19/2025 9:11 PM EST 50 mL documented in this encounter Active and Recently Administered Medications Times are shown in EST. Scheduled Medication Order 04/17/2025 04/18/2025 04/19/2025 iohexol (OMNIPaque) 240 MG/ML injection 50 mL (COMPLETED) 50 mL, Per PEG Tube, Once in imaging, 1 dose, Starting on 04/19/25 at 2101, Until 04/19/25 at 2110, Routine, Imaging Protocol Orders 2110 (Given - Provid er: Ap Avery) documented in this encounter Additional Health Concerns [...] documented as of this encounter Care Teams Material Inspector Relationship Specialty Start Date End Date Jatinder Clifford MD PCP - General Family Medicine 11/05/24 documented as of this encounter
--- OUTSIDE RECORDS SUMMARY | 2025-04-23 12:45 | XMS_ITS | Encounter Summary ---
Author Organization Healthcare Address [address] [place] [address] Care Team Providers Care Sales Special Agent Name Role Phone Jatinder Clifford MD Primary Care Provider Samra vailable Encounter Details Date Type Department Care Team (Latest Contact Info) Description 04/23/2025 12:45 PM EST - 04/23/2025 11:59 PM EST Hospital Encounter [facility] Radiology [address] [place] [address] Malignant neoplasm of lower third of esophagus [...] any time in the past 12 m [facility], were you homeless or living in a halfway (including now)? No 04/07/2025 [facility] Utilities Answer Date Recorded In the past 12 months has th e [employer], gas, oil, or water [employer] threatened to shut off services in your [...] 1 tablet daily. 90 tablet 5 Boost [facility] (Boost) [facility] liquid 237 mL by Per PEG Tube route 4 times a day. 23071 mL 5 5 06/15/19 26 buPROPion XL (Wellbutrin XL) 300 MG 24 hr tablet Take 1 tablet by mouth daily. Do not crush, chew, or split. Feeding Supplies [facility] Please send months supply of gravity bags and syringes with monthly order 1 each 5 5 fenofibrate (Triglide) 160 MG tablet Take 1 tablet by mouth daily. fluticasone-salmete rol (Advair Diskus) 250-50 MCG/ACT diskus inhaler Inhale 1 puff 2 times a day. Rinse mouth with water after use to reduce aftertaste and incidence of candidiasis. Do not swallow. furosemide (Lasix) 20 MG tablet Take 1 tablet by mouth daily. 5 tablet 5 isosource 1.5 Piotr/mL liquid 65 mL/hr by [...] [facility] Head[facility] Ne[facility] Respiratory [address] [facility], [address]nd [place] [address] Everett Beyer, DO [address] [facility] [address] [place] [address] documented as of this encounter Goals Goal Patient Goal Type Associated Problems Recent Progress Patient-Stated? Author Autogenerat ed Goal Care Plan Autogenerated Problem No Nicole Ty documented as of this encounter Procedures Procedure Name Priority Date/Time Associated Diagnosis Comments XR CHEST 2 VIEWS Routine 04/23/2025 1:46 PM EST Malignant neoplasm of lower third of esophagus documented in this encounter Results * XR Chest 2 Views (04/23/2025 1:46 PM EST) Anatomical Region Laterality Modality Chest Digital Radiogra phy Impressions 04/23/2025 2:42 PM EST Moderate right pleural effusion, increased from prior. Stable bibasilar atelectasis. CRITICAL RESULT: No. COMMUNICATION: Per this written report. By electronically signing this report, I, the attending physician, attest that I have personally reviewed the images/data for the above examination(s) and agree with the final edited report. Drafted by Ap Francis III, MD on 04/23/2025 1:49 PM Final report signed by Estuardo Little MD on 04/23/2025 2:42 PM Narrative 04/23/2025 2:42 PM EST CLINICAL INDICATION: post op TECHNIQUE: XR CHEST 2 VIEWS COMPARISON: Chest radiographs dated 04/14/2025 and 04/15/2025 FINDINGS: Moderate right pleural effusion, increased from prior. Mild bibasilar opacities, stable. No pneumothorax. No focal airspace consolidation. The mediastinal and cardiac contours are stable. No acute osseous abnormality. Procedure Note Estuardo Little MD - 04/23/2025 CLINICAL INDICATION: post op TECHNIQUE: XR CHEST 2 VIEWS COMPARISON: Chest radiographs dated 04/14/2025 and 04/15/2025 FINDINGS: Moderate right pleural effusion, increased from prior. Mild bibasilaropacities, stable. No pneumothorax. No focal airspace consolidation. Themediastinal and cardiac contours are stable. No acute osseousabnormality. IMPRESSION: Moderate right pleural effusion, increased from prior. Stable bibasilaratelectasis. CRITICAL RESULT: No. COMMUNICATION: Per this written report. By electronically signing this report, I, the attending physician, ana I have personally reviewed the images/data for the aboveexamination(s) and agree with the final edited report. Drafted by Ap Francis III, MD on 04/23/2025 1:49 PM Final report signed by Estuardo Little MD on 04/23/2025 2:42 PM eRal Westfall MD IMG XR PROCEDURES Final Resu lt documented in this encounter Visit Diagnoses Diagnosis Malignant neoplasm of lower third of esophagus documented in this encounter Additional Health Concerns Active Problems Noted Date Diagnosed Date Autogenerated Problem 03/12/2025 Assessment Noted Time PHQ-9 Depression Total Score: 1 11/01/19 25 3:42 PM EDT A fall risk assessment has been complete d for the patient 04/23/2025 12:54 PM EST A Body Mass Index follow-up plan has been documented for the patient 04/26/2025 2:41 PM EST documented as of this encounter Care Teams Sales Special Agent Relationship Specialty Start Date End Date Jatinder Clifford MD PCP - General Family Medicine 11/05/24 documented as of this encounter
--- OUTSIDE RECORDS SUMMARY | 2025-04-23 13:45 | XMS_ITS | Encounter Summary ---
Author Organization Healthcare Address [address] [place] [id number] Care Team Providers Care Ore Dryer Name Role Phone Jatinder Clifford MD Primary Care Provider Samra vailable Reason for Visit * Reason Comments Follow-up Post-op Encounter Details Date Type Department Care Team ([facility] st Contact Info) Description 04/23/2025 1:45 PM EST Office Visit [facility] Head[facility] Neck & Respiratory [address] [place] [address] Everett Beyer, DO [address] [place] [phone] Malignant neoplasm of lower third of esophagus (Primary Dx) Social History Tobacco Use Types [...] any time in the past 12 m [facility], were you homeless or living in a halfway (including now)? No 04/07/2025 [facility] Utilities Answer Date Recorded In the [...] Sign Reading Time Taken Comments Blood Pressure 154/71 04/23/2025 12:59 PM EST re check Pulse 53 04/23/2025 12:54 PM EST Temperature 36.4 C (97.5 F) 04/23/2025 12:54 PM EST Respiratory Rate 16 04/23/2025 12:54 PM EST Oxygen Saturation 95% 04/23/2025 12:54 PM EST Inhaled Oxygen Concentration - - Weight 109 kg (239 lb 13.8 oz) 04/23/2025 12:54 PM EST Height 182.9 cm (6') 04/23/2025 12:54 PM EST Body Mass Index 32.53 04/23/2025 12:54 PM EST documented in this encounter Miscellaneous Notes * Progress Notes - Chu Davis, FUNCTIONAL MANAGER - 04/23/2025 1:45 PM EST Images from the original note were not included. [facility] Department of Surgery Division of Thoracic Surgery Outpatient Clinic Note Diagnosis: Esophageal Cancer Procedure: EGD lap assisted PEG 12/12/24 Pathology: [id number] adenocarcinoma Stage 3c Interval History: Edwin Cook is a 70 y.o. male with PMH recent TIA, Crohn's Disease (no meds), JUAN DIEGO, HLD, GERD, tobacco abuse, obesity and recently diagnosed esophageal cancer who is s/p PEG placement for dysphagia on 12/12/24 and was able to get nutrition optimized and able to get Calhan Romero Esophagectomy on 04/06/25. He was able to be discharged on 04/15/25 and was sent home on CLD with J tube feeds. He accidentally pulled out his j tube which he needed to get replaced in the ER. Today he reports no major issues, only complaint is with breathing and swelling of his ankles. He has been swallowing liquids with ease. Today he is eager to get his diet advanced as soon as possible. He deniesany dysphagia, chest pain, orthopnea, fevers, aches or chills. No other concerns at this time. He reports some chills but thinks that is more associated with being more sensitive to the new colder weather. ROS: General: no fevers or chills, no [...] abdominal pain, no constipation, no diarrhea, no melenal, no hematochezia, no dysphagia, no heartburn Skin: no rash Neuro: no numbness, no tingling, no headache, no difficulties with speech, no gait disturbance Heme: no easy bruising, no bleeding from the gums Endo: No polyuria or polydypsia Psych: no depression or anxiety Physical exam: Visit Vitals BP (!) 154/71 Comment: recheck Pulse 53 Temp 36.4 ??C (97.5 ??F) (Oral) Ht 1.829 m (6') Wt 109 kg (239 lb 13.8 oz) SpO2 95% BMI 32.53 kg/m?? General: alert and oriented, appropriate Lungs: CTA B, no wheezes or rhonchi Heart: RRR, no murmurs Abdomen: soft NT/ND, normal bowel sounds Lymph nodes: no palpable supraclavicular or cervical adenopathy Extremities: no peripheral edema Skin: no rash, no cyanosis and warm to touch Psychiatric: oriented to person/place/time and normal mood/affect Incisions: healing well Imagin04/06/25 Pathology Final Diagnosis A. LYMPH NODE, LEVEL 8, EXCISION: - ONE LYMPH NODE NEGATIVE FOR MALIGNANCY (0/1) B. ESOPHAGUS AND STOMACH, ESOPHAGOGASTRECTOMY: - RESIDUAL INVASIVE ADENOCARCINOMA (ypT3, ypN3). SEE CHECKLIST. - MARGINS OF EXCISION NEGATIVE FOR TUMOR. - METASTATIC ADENOCARCINOMA IDENTIFIED IN 10 OF 11 LYMPH NODES (10/11). C. ESOPHAGEAL ANASTOMOTIC MARGIN, EXCISION: - NEGATIVE FOR MALIGNANCY. D. GASTRIC ANASTOMOTIC MARGIN, EXCISION: - NEGATIVE FOR MALIGNANCY. E. FINAL GASTRIC MARGIN, EXCISION: - NEGATIVE FOR MALIGNANCY. Assessment and Plan: Edwin Cook is a 70 y.o. male with PMH recent TIA, Crohn's Disease (no meds), JUAN DIEGO, HLD, GERD, tobacco abuse, obesity and recently diagnosed esophageal cancer who is s/p PEG placement for dysphagiaon 12/12/24 and was able to get nutrition optimized and able to get Calhan Romero Esophagectomy on 04/06/25. We will advance his diet to FLD and start weaning his tube feeds by 3hrs each day. We will have him follow up in 2 weeks to see how he is doing with possibility of getting J tube out. He will start daily lasix x 5 days. Dieticians will be by to see him today and discuss how to wean and apply new FLD. Sutures removed. Please wash over with soap and water daily now. Images and pathology reviewed and discussed with the patient at today's visit and all questions answered. Patient will return to clinic in 2 weeks with CXR. The patient understands this plan and willcall our office for any additional questions or concerns. Chu Davis APRN 04/23/25 3:29 PM Cosigned by Everett Beyer DO at 04/26/2025 2:41 PM EST Associated attestation - Everett Beyer DO - 04/26/2025 2:41 PM EST I attest to being involved in more than half the total time in patient care. documented in this encounter Plan of Treatment Upcoming Encounters Date Type Department Care Team (Late st Contact Info) Description 08/20/2025 10:15 AM EDT Office Visit [facility] Head[facility] Neck [facility] Respiratory [address] [place] [address] Everett Beyer, DO [address] [place] [address] documented as of this encounter Goals Goal Patient Goal Type Associated Problems Recent Progress Patient-Stated? Author Autogenerat ed Goal Care Plan Autogenerated Problem No Nicole Ty documented as of this encounter Results * XR Chest 2 Views (05/11/2025 9:59 AM EST) Anatomical Region Laterality Modality Chest Digital Radiogra phy Impressions 05/11/2025 10:49 AM EST Stable exam CRITICAL RESULT: No. COMMUNICATION: Per this written report. Drafted by Song Ayon MD on 05/11/2025 10:48 AM Final report signed by Song Ayon MD on 05/11/2025 10:49 AM Narrative 05/11/2025 10:49 AM EST CLINICAL INDICATION: post op TECHNIQUE: XR CHEST 2 VIEWS COMPARISON: April 23, 2025 FINDINGS: Moderate right pleural effusion is similar in size. No edema or consolidation. Heart and mediastinal contours are within normal limits. No pneumothorax. Procedure Note Song Ayon MD - 05/11/2025 CLINICAL INDICATION: post op TECHNIQUE: XR CHEST 2 VIEWS COMPARISON: April 23, 2025 FINDINGS: Moderate right pleural effusion is similar in size. No edema orconsolidation. Heart and mediastinal contours are within normal limits. Nopneumothorax. IMPRESSION: Stable exam CRITICAL RESULT: No. COMMUNICATION: Per this written report. Drafted by Song Ayon MD on 05/11/2025 10:48 AM Final report signed by Song Ayon MD on 05/11/2025 10:49 AM Everett Beyer DO IMG XR PROCEDURES Final Resul t documented in this encounter Visit Diagnoses Diagnosis Malignant neoplasm of lower third of esophagus- Primary Malignant neoplasm of lower third of [...] documented as of this encounter Care Teams Ore Dryer Relationship Specialty Start Date End Date Jatinder Clifford MD PCP - General Family Medicine 11/05/24 documented as of this encounter
--- OUTSIDE RECORDS SUMMARY | 2025-05-11 09:42 | XMS_ITS | Encounter Summary ---
Author Organization Healthcare Address [address] [place] [address] Care Team Providers Care Research Engineer Name Role Phone Jatinder Clifford MD Primary Care Provider Samra vailable Encounter Details Date Type Department Care Team (Latest Contact Info) Description 05/11/2025 9:42 AM EST - 05/11/2025 11:59 PM [facility] Hospital Encounter P[facility] H Radiology [address] [place] [address] Malignant neoplasm of lower third of esophagus [...] any time in the past 12 m [facility], were you homeless or living in a penitentiary (including now)? No 04/07/2025 [facility] Utilities Answer Date Recorded In the past 12 months has th e [employer], gas, oil, or water [employer] threatened to shut off services in your [...] PEG Tube route 4 times a day. 20903 mL 5 5 06/15/19 26 buPROPion XL (Wellbutrin XL) 300 MG 24 hr tablet Take 1 tablet by mouth daily. Do not crush, chew, or split. Feeding Supplies [facility] Please send months supply of gravity bags [...] Allowed? Yes 1 each 5 07/13/19 26 losartan (Cozaar) 25 MG tablet Take 1 tablet by mouth daily. metoclopramide (Reglan) 5 MG tablet Take 1 tablet by mouth 3 times a day. Take before meals. 90 tablet 1 5 ondansetron ODT (Zofran-ODT) 8 MG disintegrating tablet [...] Take 1 capsule by mouth daily. 5 documented as of this encounter Plan of Treatment Upcoming Encounters Date Type Department Care Team (Late st Contact Info) Description 08/20/2025 10:15 AM EDT Office Visit Pav [facility] Head[facility] Neck & Respiratory [address] [facility], [address]nd [place] [address] Everett Beyer, DO [address] [facility] [address] [place] [address] documented as of this encounter Goals Goal Patient Goal Type Associated Problems Recent Progress Patient-Stated? Author Autogenerat ed Goal Care Plan Autogenerated Problem No Nicole Ty documented as of this encounter Procedures Procedure Name Priority Date/Time Associated Diagnosis Comments XR CHEST 2 VIEWS Routine 05/11/2025 9:59 AM EST Malignant neoplasm of lower third [...] plan has been documented for the patient 05/11/2025 11:11 AM EST documented as of this encounter Care Teams Research Engineer Relationship Specialty Start Date End Date Jatinder Clifford MD PCP - General Family Medicine 11/05/24 documented as of this encounter
--- OUTSIDE RECORDS SUMMARY | 2025-05-11 10:30 | XMS_ITS | Encounter Summary ---
Author Organization Healthcare Address [address] [place] [id number] Care Team Providers Care Cellular Plastics Cutter Name Role Phone Jatinder Clifford MD Primary Care Provider Samra vailable Reason for Visit * Reason Comments Follow-up Chest X-Ray Encounter Details Date Type Department Care Team ([facility] Contact Info) Description 05/11/2025 10:30 AM EST Office Visit [facility] Head[facility] Neck [facility] Respiratory [address] [facility], [address] [place] [address] Everett Beyer, DO [address] [facility] [address] [place] [address] Malignant neoplasm of lower third of esophagus Social History Tobacco Use Types Packs/Day Years [...] any time in the past 12 m [facility], were you homeless or living in a fci (including now)? No 04/07/2025 [facility] Utilities Answer Date Recorded In the [...] Sign Reading Time Taken Comments Blood Pressure 137/71 05/11/2025 10:21 AM EST Pulse 55 05/11/2025 10:21 AM EST Temperature - - Respiratory Rate 20 05/11/2025 10:21 AM EST Oxygen Saturation 97% 05/11/2025 10:21 AM EST Inhaled Oxygen Concentration - - Weight 106 kg (232 lb 12.9 oz) 05/11/2025 10:21 AM EST Height - - Body Mass Index 31.57 04/23/2025 12:54 PM EST documented in this encounter Miscellaneous Notes * Progress Notes - Joselin Mullins PA - 05/11/2025 10:30 AM EST Images from the original note were not included. [facility] Department of Surgery Division of [...] s/p PEG placement for dysphagia on 12/12/24 followed by Iglesia Romero Esophagectomy on 04/06/25 who presents today with CXR and two week postop/nutrition check. He is reporting constant indigestion and the sensation that food is sitting in his stomach and not moving through. He thinks he could increase his intake if he did not have this feeling. Getting 2-3 boost shakes a day and some soft foods. He has some SOB, but more related to deconditioning. No fevers, cough, dysphagia, vomiting. ROS: General: no fevers or chills, no [...] or anxiety Physical exam: Visit Vitals BP 137/71 (BP Location: Right arm) Pulse 55 Wt 106 kg (232 lb 12.9 oz) SpO2 97% BMI 31.57 kg/m?? General: alert and oriented, appropriate Lungs: CTA B, no wheezes or rhonchi Heart: RRR, no murmurs Abdomen: soft NT/ND, normal bowel sounds Lymph nodes: no palpable supraclavicular or cervical adenopathy Extremities: no peripheral edema Skin: no rash, no cyanosis and warm to touch Psychiatric: oriented to person/place/time and normal mood/affect Incisions: healing well; j tube site CDI Imaging: CXR: improved right effusion Additional Testing: None Assessment and Plan: Edwin Cook is a 70 y.o. male with PMH recent TIA, Crohn's Disease (no meds), JUAN DIEGO, HLD, GERD, tobacco abuse, obesity and recently diagnosed esophageal cancer who is s/p PEG placement for dysphagiaon 12/12/24 followed by Iglesia Romero Esophagectomy on 04/06/25 who presents today with CXR and two week postop/nutrition check. CXR with improved effusion and LE edema is improved. Will start Reglan 5mgTID and have dieticians see today. J tube removed in clinic. Images and pathology reviewed and discussed with the patient at today's visit and all questions answered. Patient will return to clinic in [address] chest/abdomen/pelvis will coordinate with Dr. Ovalle. The patient understands this plan and will call our office for any additional questions or concerns. YASMANY Perrin 05/11/2025 10:25 AM Cosigned by Everett Beyer DO at 05/11/2025 11:11 AM EST Associated attestation - Everett Beyer, - 05/11/2025 11:11 AM EST I attest to being involved in more than half the total time in patient care. documented in this encounter Plan of Treatment Upcoming Encounters Date Type Department Care Team (Late st Contact Info) Description 08/20/2025 10:15 AM EDT Office Visit [facility] Head[facility] Neck [facility] Respiratory [address] [facility], [address] [place] [address] Everett Beyer, DO [address] [facility] [address] [place] [address] documented as of this encounter Goals Goal Patient Goal Type Associated Problems Recent Progress Patient-Stated? Author Autogenerat ed Goal Care Plan Autogenerated Problem No Nicole Ty documented as of this encounter Visit Diagnoses [...] documented as of this encounter Care Teams Cellular Plastics Cutter Relationship Specialty Start Date End Date Jatinder Clifford MD PCP - General Family Medicine 11/05/24 documented as of this encounter
--- OUTSIDE RECORDS SUMMARY | 2025-05-12 14:12 | XMS_ITS | Encounter Summary ---
Author Organization Healthcare Address [address] [place] [address] Care Team Providers Care Shoder Filler Name Role Phone Jatinder Clifford MD Primary Care Provider Samra vailable Encounter Details Date Type Department Care Team (Latest Contact Info) Description 04/06/2025 Travel Social History Tobacco Use Types Packs/Day [...] in the past 12 m [facility], were you homeless or living in a fdc (including now)? No 04/07/2025 [facility] Utilities Answer Date Recorded In the [...] * Question Answer Date of Assessment Author Armijo Environmental surveillance 04/06/2025 8:0 0 PM Bharti Guerra RN * Calculated C-SSRS Risk Score (Lifetime/Recent) Answer Date of Assessment Author No Risk Indicated 04/06/2025 8:00 PM Bharti Guerra RN * Question Answer Date of Assessment Author 1. Wish to be (Past 1 Month) No 025 8:00 PM Bharti Guerra RN 2. Non-Specific Active Suici isabel Thoughts (Past 1 Month) No 04/06/2025 8:00 PM Bharti Guerra RN 6. Suicidal Behavior (Lifetime) No 8:00 PM Bharti Guerra RN documented as of this encounter Mental Status * Question Answer Entry Date Author Aleksander Environmental surveillance 04/06/2025 8:0 0 PM Bharti Guerra RN documented in this encounter Plan of Treatment Upcoming Encounters Date Type Department Care Team (Late st Contact Info) Description 08/20/2025 10:15 AM EDT Office Visit Pav [facility] Head[facility] Neck & Respiratory [address] [facility], [address] [place] [address] Everett Beyer, DO [address] [facility] [address] [place] [address] documented as of this encounter Goals Goal Patient Goal Type Associated Problems Recent Progress Patient-Stated? Author Autogenerat ed Goal Care Plan Autogenerated Problem No Nicole Ty documented as of this encounter Visit Diagnoses Not on filedocumented in this encounter Additional Health Concerns Active [...] documented as of this encounter Care Teams Shoder Filler Relationship Specialty Start Date End Date Jatinder Clifford MD PCP - General Family Medicine 11/05/24 documented as of this encounter
--- OUTSIDE RECORDS SUMMARY | 2025-05-12 14:12 | XMS_ITS | Encounter Summary ---
Author Organization Healthcare Address [address] [place] [address] Care Team Providers Care Rn Provider Relations Name Role Phone Jatinder Clifford MD Primary Care Provider Samra vailable Encounter Details Date Type Department Care Team (Latest Contact Info) Description 03/30/2025 Travel Social History Tobacco Use Types Packs/Day [...] [facility] Head[facility] Neck [facility] Respiratory [address] [facility], [address] [place] [address] Everett Beyer, DO [address] [address] documented as of this encounter Goals Goal [...] documented as of this encounter Care Teams Rn Provider Relations Relationship Specialty Start Date End Date Jatinder Clifford MD PCP - General Family Medicine 11/05/24 documented as of this encounter
--- OUTSIDE RECORDS SUMMARY | 2025-05-12 14:12 | XMS_ITS | Encounter Summary ---
Author Organization Healthcare Address [address] [place] [address] Care Team Providers Care Concrete Floater Name Role Phone Jatinder Clifford MD Primary Care Provider Samra vailable Reason for Visit * Reason Comments Nutrition Counseling Encounter Details Date Type Department Care Team ([facility] st Contact Info) Description 03/12/2025 Nutrition Pav [facility] Ne[facility] Respiratory [address] [place] [address] Candie Beyer Social History Tobacco Use Types Packs/Day Years Used Date Smoking Tobacco: Former Cigarettes 3 33 1 407 - 2000 Passive Smoke Exposure: Past Smokeless [...] the past 12 months has th e [employer], gas, oil, or water company threatened to shut off services in your home? No 10/28/2024 Sex and Gender Information Value Date Recorded Sex Assigned at Not on file Legal Sex Male 4:15 PM EDT Gender Identity Not on file Sexual Orientation Not on file documented as of this encounter Miscellaneous Notes * Clinician Note - Candie Beyer - 03/12/2025 1:55 PM EDT ONCOLOGY NUTRITION NOTE Patient Information Name: Edwin Cook [id number] : 1955 Date of Service: 03/12/2025 Visit Type: Nutrition consult Referral source: [facility] Dino Cook is a 70 y.o. male who was referred to [facility] dietitian for oncology nutrition counseling and enteral nutrition management. Diagnosis Cancer Staging No matching staging information was found for the patient. Nutrition Assessment Anthropometrics: Wt Readings from Last 5 Encounters: 03/12/25 106 kg (234 lb 5.6 oz) 12/25/24 110 kg (242 lb 4.6 oz) 12/12/24 110 kg (242 lb) 12/10/24 110 kg (242 lb) 11/20/24 119 kg (262 lb 5.6 oz) Ht Readings from Last 1 Encounters: [...] 75 10/25/2024 BILITOT 0.9 10/25/2024 Malnutrition Screening PG-SGA (SF) -(Additive Score box 1-4): (!) (Patient-Rptd) 16 (03/05/2025 9:13 AM) (Malnutrition Risk - Low: 0-3, Moderate: 4-8, High: 9+) Nutrition History: Established with [facility] RD since PEG placement, 12/12. Set-up with [facility] and ordered Boost VHD QID toprovide 2120 kcal, 88 g/pro and 636 ml/h2o. Interval History: Pt with hx esophageal cancer s/p chemoradiation completed 01/31. Plans for robotic vs laparoscopic roderick [place] esophagectomy with J tube placement in ~ 3 weeks. Visited pt in clinic. He was using PEG as sole source of nutrition during treatment but has increased PO intake over the last week. He is doing ~ 3 Boost VHC/day - 1 via tube, 2 PO with PO intake as tolerated. Some stomach upset since reintroducing PO intake but states it's improving daily. Pt ate a chicken breast for lunch prior to appt and tolerated well. Monitoring wt. Nutrition Intervention Continue 3 Boost VHC/day with PO intake as tolerated. 4/day if no PO intake. Monitor wt and increase Boost VHC if trending down. Focus on protein PO. Sources discussed. Discussed what to expect nutrition-stephens s/p esophagectomy. Discussed different diets and process ofadvancement. No questions or concerns. RD contact information was provided and pt was encouraged to contact withadditional nutrition-related questions/concerns PRN. documented in this encounter Plan of Treatment Upcoming Encounters Date Type Department Care Team (Late st Contact Info) Description 08/20/2025 10:15 AM EDT Office Visit Pav CC Head[facility] Neck & Respiratory [address] [facility], [address]nd [place] [address] Everett Beyer, DO [address] [facility] [address] [place] [address] documented as of this encounter Goals Goal [...] documented as of this encounter Care Teams Concrete Floater Relationship Specialty Start Date End Date Jatinder Clifford MD PCP - General Family Medicine 11/05/24 documented as of this encounter
--- OUTSIDE RECORDS SUMMARY | 2025-05-12 14:12 | XMS_ITS | Encounter Summary ---
Author Organization Healthcare Address [address] [place] [address] Care Team Providers Care B2B Account Executive Name Role Phone Jatinder Clifford MD Primary Care Provider Samra vailable Encounter Details Date Type Department Care Team (Latest Contact Info) Description 04/08/2025 Travel Social History Tobacco Use Types Packs/Day [...] time in the past 12 m [facility], were you homeless or living in a long-term (including now)? No 04/07/2025 [facility] Utilities Answer Date Recorded In the [...] Question Answer Date of Assessment Author Precautions Fall risk 04/08/2025 11:00 PM Niesha Mendez * Calculated C-SSRS Risk Score (Lifetime/Recent) Answer Date of Assessment Author No Risk Indicated 04/08/2025 8:00 PM Niesha Hayes * Question Answer Date of Assessment Author 1. Wish to be (Past 1 Month) No 025 8:00 PM Niesha Hayes 2. Non-Specific Active Suici isabel Thoughts (Past 1 Month) No 04/08/2025 8:00 PM Niesha Hayes 6. Suicidal Behavior (Lifetime) No 8:00 PM Niesha Hayes documented as of this encounter Mental Status * Question Answer Entry Date Author Precautions Fall risk 04/08/2025 11:00 PM Niesha Mendez documented in this encounter Plan of Treatment Upcoming Encounters Date Type Department Care Team (Late st Contact Info) Description 08/20/2025 10:15 AM EDT Office Visit Pav [facility] Head, Neck & Respiratory [address] [place] [address] Everett Beyer, DO [address] [phone] documented as of this encounter Goals Goal [...] documented as of this encounter Care Teams B2B Account Executive Relationship Specialty Start Date End Date Jatinder Clifford MD PCP - General Family Medicine 11/05/24 documented as of this encounter
--- OUTSIDE RECORDS SUMMARY | 2025-05-12 14:12 | XMS_ITS | Encounter Summary ---
Author Organization Healthcare Address [address] [place] [address] Care Team Providers Care Onsite Health Coach Name Role Phone Jatinder Clifford MD Primary Care Provider Samra vailable Encounter Details Date Type Department Care Team (Latest Contact Info) Description 04/07/2025 Travel Social History Tobacco Use Types Packs/Day [...] any time in the past 12 m [facility], were you homeless or living in a senior care (including now)? No 04/07/2025 [facility] Utilities Answer Date Recorded In the [...] documented as of this encounter Functional Status documented as of this encounter Mental Status * Question Answer Entry Date Author Precautions Fall risk 04/07/2025 10:00 PM Niesha Mendez documented in this encounter Plan of Treatment Upcoming Encounters Date Type Department Care Team (Late st Contact Info) Description 08/20/2025 10:15 AM EDT Office Visit Pav CC Head, Neck & Respiratory [address] [facility], [address]nd [place] [address] Everett Beyer, DO [address] [facility] [address] [place] [address] documented as of this encounter Goals Goal [...] documented as of this encounter Care Teams Onsite Health Coach Relationship Specialty Start Date End Date Jatinder Clifford MD PCP - General Family Medicine 11/05/24 documented as of this encounter
--- OUTSIDE RECORDS SUMMARY | 2025-05-12 14:13 | XMS_ITS | Encounter Summary ---
Author Organization Healthcare Address [address] [place] [address] Care Team Providers Care Asset Analyst Name Role Phone Jatinder Clifford MD Primary Care Provider Samra vailable Encounter Details Date Type Department Care Team (Latest Contact Info) Description 04/09/2025 Travel Social History Tobacco Use Types Packs/Day [...] any time in the past 12 m [facility], were you homeless or living in a group home (including now)? No 04/07/2025 [facility] Utilities Answer Date Recorded In the past [...] Answer Entry Date Author Precautions Fall risk 04/09/2025 11:00 PM Niesha Mendez documented in this encounter Plan of Treatment Upcoming Encounters Date Type Department Care Team (Late st Contact Info) Description 08/20/2025 10:15 AM EDT Office Visit Pav CC Head, Neck & Respiratory [address] [facility], [address] [place] [address] Everett Beyer, DO [address] [facility] [address] [place] [address] documented as of this encounter Goals Goal [...] documented as of this encounter Care Teams Asset Analyst Relationship Specialty Start Date End Date Jatinder Clifford MD PCP - General Family Medicine 11/05/24 documented as of this encounter
--- OUTSIDE RECORDS SUMMARY | 2025-05-12 14:13 | XMS_ITS | Encounter Summary ---
Author Organization Healthcare Address [address] [place] [address] Care Team Providers Care Sales Team Leader Name Role Phone Jatinder Clifford MD Primary Care Provider Samra vailable Encounter Details Date Type Department Care Team (Latest Contact Info) Description 04/12/2025 Travel Social History Tobacco Use Types Packs/Day [...] any time in the past 12 m [facility], were you homeless or living in a assisted (including now)? No 04/07/[address] [facility] Utilities Answer Date Recorded In [...] Date of Assessment Author Armijo Environmental surveillance 04/12/2025 8:5 0 PM Jessica Ratliff RN * Calculated C-SSRS Risk Score (Lifetime/Recent) Answer Date of Assessment Author No Risk Indicated 04/12/2025 8:50 PM Jessica Ratliff RN * Question Answer Date of Assessment Author 1. Wish to be (Past 1 Month) No 04/12/2025 8:50 PM Jessica Ratliff RN 2. Non-Specific Active Suici isabel Thoughts (Past 1 Month) No 04/12/2025 8:50 PM Bindu Ratliff RN 6. Suicidal Behavior (Lifetime) No 8:50 PM Jessica Ratliff RN documented as of this encounter Mental Status * Question Answer Entry Date Author Armijo Environmental surveillance 04/12/2025 8:5 0 PM Jessica Ratliff RN documented in this encounter Plan of Treatment Upcoming Encounters Date Type Department Care Team (Late st Contact Info) Description 08/20/2025 10:15 AM EDT Office Visit Pav CC Head[facility] Neck & Respiratory [address] [facility], [address] [place] [address] Everett Beyer, DO [address] [facility] [address] [place] [address] documented as of this encounter Goals Goal [...] as of this encounter Care Teams Sales Team Leader Relationship Specialty Start Date End Date Jatinder Clifford MD PCP - General Family Medicine 11/05/24 documented as of this encounter
--- OUTSIDE RECORDS SUMMARY | 2025-05-12 14:13 | XMS_ITS | Encounter Summary ---
Author Organization Healthcare Address [address] [place] [address] Care Team Providers Care Hole Filler Name Role Phone Jatinder Clifford MD Primary Care Provider Samra vailable Encounter Details Date Type Department Care Team (Latest Contact Info) Description 04/19/2025 Travel Social History Tobacco Use Types Packs/Day [...] any time in the past 12 m [facility], were you homeless or living in a intermediate (including now)? No 04/07/2025 [facility] Utilities Answer Date Recorded In the [...] Author No Risk Indicated 04/19/2025 8:23 PM Joselin Luna, RN * Question Answer Date of Assessment Author 1. Wish to be (Past 1 Month) No 025 8:23 PM Joselin Luna, RN 2. Non-Specific Active Suici isabel Thoughts (Past 1 Month) No 04/19/2025 8:23 PM Joselin Luna, RN 6. Suicidal Behavior (Lifetime) No 5 8:23 PM Joselin Luna, RN documented as of this encounter Plan of Treatment Upcoming Encounters Date Type Department Care Team (Late st Contact Info) Description 08/20/2025 10:15 AM EDT Office Visit Pav [facility] Head[facility] Neck [facility] Respiratory [address] [place] [address] Everett Beyer, DO [address] [place] [address] documented as of this encounter Goals Goal [...] documented as of this encounter Care Teams Hole Filler Relationship Specialty Start Date End Date Jatinder Clifford MD PCP - General Family Medicine 11/05/24 documented as of this encounter
--- OUTSIDE RECORDS SUMMARY | 2025-05-12 14:13 | XMS_ITS | Encounter Summary ---
Author Organization Healthcare Address [address] [place] [address] Care Team Providers Care Expressive Music Therapist Name Role Phone Jatinder Clifford MD Primary Care Provider Samra vailable Encounter Details Date Type Department Care Team (Latest Contact Info) Description 04/14/2025 Travel Social History Tobacco Use Types Packs/Day [...] in a long term (including now)? No 04/07/2025 [facility] Utilities Answer Date Recorded In [...] Date of Assessment Author Precautions Fall risk 04/14/2025 11:35 PM Jeanie Schultz RN * Calculated C-SSRS Risk Score (Lifetime/Recent) Answer Date of Assessment Author No Risk Indicated 04/14/2025 8:06 AM Khoi Duenas RN * Question Answer Date of Assessment Author 1. Wish to be (Past 1 Month) No 04/14/2025 8:06 AM Sobia Dodge, RN 2. Non-Specific Active Suicidal Thoughts (Past 1 Month) No 04/14/2025 8:06 AM Sobia Dodge, RN 6. Suicidal Behavior (Lifetime) No 04/14/2025 8:06 AM Sobia Dodge, RN documented as of this encounter Mental Status * Question Answer Entry Date Author Precautions Fall risk 04/14/2025 11:35 PM Jeanie Schultz RN documented in this encounter Plan of Treatment Upcoming Encounters Date Type Department Care Team (Late st Contact Info) Description 08/20/2025 10:15 AM EDT Office Visit Pav CC Head, Neck & Respiratory [address] [facility], [address] [place] [address] Everett Beyer, DO [address] [facility] [address] [place] [address] documented as of this encounter Goals Goal [...] documented as of this encounter Care Teams Expressive Music Therapist Relationship Specialty Start Date End Date Jatinder Clifford MD PCP - General Family Medicine 11/05/24 documented as of this encounter
--- OUTSIDE RECORDS SUMMARY | 2025-05-12 14:13 | XMS_ITS | Encounter Summary ---
Author Organization Healthcare Address [address] [place] [address] Care Team Providers Care Foreign Broadcast Specialist Name Role Phone Jatinder Clifford MD Primary Care Provider Samra vailable Encounter Details Date Type Department Care Team (Latest Contact Info) Description 04/11/2025 Travel Social History Tobacco Use Types Packs/Day [...] in the past 12 m [facility], were you homeless or living in a penitentiary (including now)? No 04/07/2025 [facility] Utilities Answer Date Recorded In [...] * Question Answer Date of Assessment Author Aleksander Environmental surveillance 04/11/2025 8:0 0 PM Daily Sherwood RN * Calculated C-SSRS Risk Score (Lifetime/Recent) Answer Date of Assessment Author No Risk Indicated 04/11/2025 8:00 AM Marlo Epstein RN * Question Answer Date of Assessment Author 1. Wish to be (Past 1 Month) No 025 8:00 AM Marlo Epstein RN 2. Non-Specific Active Suici isabel Thoughts (Past 1 Month) No 04/11/2025 8:00 AM Marlo Epstein RN 6. Suicidal Behavior (Lifetime) No 8:00 AM Marlo Epstein RN documented as of this encounter Mental Status * Question Answer Entry Date Author Aleksander Environmental surveillance 04/11/2025 8:0 0 PM Daily Sherwood RN documented in this encounter Plan of Treatment Upcoming Encounters Date Type Department Care Team (Late st Contact Info) Description 08/20/2025 10:15 AM EDT Office Visit Pav CC Head[facility] Neck & Respiratory [address], [address] [place] [address] Everett Beyer, DO [address] [facility] [address] [place] [address] documented as of this encounter Goals Goal [...] documented as of this encounter Care Teams Foreign Broadcast Specialist Relationship Specialty Start Date End Date Jatinder Clifford MD PCP - General Family Medicine 11/05/24 documented as of this encounter
--- OUTSIDE RECORDS SUMMARY | 2025-05-12 14:13 | XMS_ITS | Encounter Summary ---
Author Organization Healthcare Address [address] [place] [address] Care Team Providers Care Event Lighting Specialist Name Role Phone Jatinder Clifford MD Primary Care Provider Samra vailable Encounter Details Date Type Department Care Team (Late st Contact Info) Description 04/20/2025 Orders Only Pav CC Head[facility] Neck & Respiratory [address] [place] [address] Marsha Ellsworth, RN [facility] None Malignant neoplasm of lower third of esophagus [...] living in a longterm (including now)? No 04/07/2025 [facility] Utilities Answer Date Recorded In [...] Pav CC Head, Neck & Respiratory [address] [facility], [address] [place] [address] Everett Beyer, DO [address] [facility] [address] [place] [address] documented as of this encounter Goals Goal [...] Estuardo Little MD on 04/23/2025 2:42 PM Real Westfall MD IMG XR PROCEDURES [...] documented as of this encounter Care Teams Event Lighting Specialist Relationship Specialty Start Date End Date Jatinder Clifford MD PCP - General Family Medicine 11/05/24 documented as of this encounter
--- OUTSIDE RECORDS SUMMARY | 2025-05-12 14:13 | XMS_ITS | Encounter Summary ---
Author Organization Healthcare Address [address] [place] [address] Care Team Providers Care Pyrometer Temperature Regulator Name Role Phone Jatinder Clifford MD Primary Care Provider Samra vailable Encounter Details Date Type Department Care Team (Latest Contact Info) Description 04/10/2025 Travel Social History Tobacco Use Types Packs/Day [...] in a intermediate (including now)? No 04/07/2025 [facility] Utilities Answer Date Recorded In [...] Date of Assessment Author Aleksander Environmental surveillance 04/10/2025 8:0 0 PM Marlo Martinez RN * Calculated C-SSRS Risk Score (Lifetime/Recent) Answer Date of Assessment Author No Risk Indicated 04/10/2025 8:00 PM Marlo Martinez RN * Question Answer Date of Assessment Author 1. Wish to be (Past 1 Month) No 025 8:00 PM Marlo Martinez RN 2. Non-Specific Active Suici isabel Thoughts (Past 1 Month) No 04/10/2025 8:00 PM King Martinez RN 6. Suicidal Behavior (Lifetime) No 8:00 PM Marlo Martinez RN documented as of this encounter Mental Status * Question Answer Entry Date Author Precautions Environmental surveillance 04/10/2025 8:0 0 PM Marlo Martinez RN documented in this encounter Plan of Treatment Upcoming Encounters Date Type Department Care Team (Late st Contact Info) Description 08/20/2025 10:15 AM EDT Office Visit Pav CC Head, Neck & Respiratory [address] [facility], [address] [place] [address] Everett Beyer, DO [address] [facility] [address] [place] [address] documented as of this encounter Goals Goal [...] documented as of this encounter Care Teams Pyrometer Temperature Regulator Relationship Specialty Start Date End Date Jatinder Clifford MD PCP - General Family Medicine 11/05/24 documented as of this encounter
--- OUTSIDE RECORDS SUMMARY | 2025-05-12 14:13 | XMS_ITS | Encounter Summary ---
Author Organization Healthcare Address [address] [place] [address] Care Team Providers Care Associate Product Manager Name Role Phone Jatinder Clifford MD Primary Care Provider Samra vailable Encounter Details Date Type Department Care Team (Latest Contact Info) Description 04/13/2025 Travel Social History Tobacco Use Types Packs/Day [...] any time in the past 12 m [facility], were you homeless or living in a long term (including now)? No 04/07/2025 [facility] Utilities Answer Date Recorded In the [...] Date of Assessment Author Precautions Fall risk 04/13/2025 11:00 PM Jeanie Schultz RN * Calculated C-SSRS Risk Score (Lifetime/Recent) Answer Date of Assessment Author No Risk Indicated 04/13/2025 8:00 AM Khoi Duenas RN * Question Answer Date of Assessment Author 1. Wish to be (Past 1 Month) No 04/13/2025 8:00 AM Sobia Dodge, RN 2. Non-Specific Active Suicidal Thoughts (Past 1 Month) No 04/13/2025 8:00 AM Sobia Dodge, RN 6. Suicidal Behavior (Lifetime) No 04/13/2025 8:00 AM Sobia Dodge, RN documented as of this encounter Mental Status * Question Answer Entry Date Author Precautions Fall risk 04/13/2025 11:00 PM Jeanie Schultz RN documented in this encounter Plan of Treatment Upcoming Encounters Date Type Department Care Team (Late st Contact Info) Description 08/20/2025 10:15 AM EDT Office Visit Pav CC Head, Neck & Respiratory [address] [facility], [address]nd [place] [address] Everett Beyer, DO [address] [facility] [address] [place] [address] documented as of this encounter Goals Goal [...] documented as of this encounter Care Teams Associate Product Manager Relationship Specialty Start Date End Date Jatinder Clifford MD PCP - General Family Medicine 11/05/24 documented as of this encounter
--- OUTSIDE RECORDS SUMMARY | 2025-05-12 14:14 | XMS_ITS | Encounter Summary ---
Author Organization Healthcare Address [address] [place] [id number] Care Team Providers Care Anesthesiologist Assistant Name Role Phone Jatinder Clifford MD Primary Care Provider Samra vailable Encounter Details Date Type Department Care Team ([facility] st Contact Info) Description 04/20/2025 Telephone Pav CC Head[facility] Neck & Respiratory [address], [address] [place] [address] Everett Beyer, DO [address] [place] [address] Social History Tobacco Use Types Packs/Day Years [...] any time in the past 12 m [facility], were you homeless or living in a penitentiary (including now)? No 04/07/2025 [facility] Utilities Answer Date Recorded In [...] encounter Miscellaneous Notes * Telephone Encounter - Nicole Ty - 04/20/2025 9:20 AM EST Nicole called and left for patient to make him aware of post-op appt for this 04/23 at 8 am for a CXR and to see Dr. Beyer at 8:45 am. Advised a call back if any questions or concerns. documented in this encounter Plan of Treatment Upcoming Encounters Date Type Department Care Team ([facility] Contact Info) Description 08/20/2025 10:15 AM EDT Office Visit Pav CC Head, Neck & Respiratory [address] [facility], [address]nd [place] [address] Everett Beyer, DO [address] [address] documented as of this encounter Goals Goal [...] documented as of this encounter Care Teams Anesthesiologist Assistant Relationship Specialty Start Date End Date Jatinder Clifford MD PCP - General Family Medicine 11/05/24 documented as of this encounter
--- OUTSIDE RECORDS SUMMARY | 2025-05-12 14:14 | XMS_ITS | Encounter Summary ---
Author Organization Healthcare Address [address] [place] [address] Care Team Providers Care Fiber Designer Name Role Phone Jatinder Clifford MD Primary Care Provider Samra vailable Encounter Details Date Type Department Care Team (Late st Contact Info) Description 05/11/2025 [facility] [address] [place] [address] Eryn Beyer [address] Social History Tobacco Use Types Packs/Day Years Used Date Smoking Tobacco: Former Cigarettes 3 [phone] 1 827 - 2000 Passive Smoke Exposure: Past Smokeless [...] living in a residential (including now)? No 04/07/2025 [facility] Utilities Answer Date Recorded In the [...] encounter Miscellaneous Notes * Clinician Note - Eryn Beyer - 05/11/2025 2:42 PM EST ONCOLOGY NUTRITION FOLLOW UP NOTE Nutrition Visit Type: Follow up Visit Location: [facility] Referral source: MAYA Cook is a 70 y.o. male who was [place] [facility] [place] for post-op nutrition counseling. Problem List[1] Medications Prior to Visit[2] Past Medical, Surgical, Family and Social History: Past Medical History[3] Surgical History[4] Family History[5] Social History[6] Current Medications[7] Nutrition Assessment Anthropometrics: Wt Readings from Last 5 Encounters: 05/11/25 106 kg (232 lb 12.9 oz) 04/23/25 109 kg (239 lb 13.8 oz) 04/19/25 107 kg (236 lb) 04/13/25 94.5 kg (208 lb 5.4 oz) 03/12/25 106 kg (234 lb 5.6 oz) Ht Readings from Last 1 Encounters: 04/23/25 1.829 m (6') BMI Readings from Last 1 Encounters: 05/11/25 31.57 kg/m?? Biochemical: Lab Results Component Value Date GLUCOSE 109 (H) 04/15/2025 CALCIUM 9.1 04/15/2025 NA 137 04/15/2025 K 4.4 04/15/2025 CO2 26 04/15/2025 CL 101 04/15/2025 BUN 17 04/15/2025 CREATININE 0.71 04/15/2025 Interval History: Pt s/p esophagectomy 04/06/25, j-tube placement. Has now weaned off of TF and j- tube removed in clinic today. He is tolerating full liquids and started some soft solids. Drinking several cups of coffee daily. Also notes some dumping syndrome symptoms. Continues to drink 2 Boost/day. Weight loss this visit. Having reflux symptoms and feeling that food is sitting on his stomach and will be started on Reglan. Nutrition Intervention -Discussed that excess in coffee/caffeine intake may exacerbate symptoms of reflux and dumping/diarrhea and suggest he decrease this, purchase lower acid containing coffee to brew -Reviewed soft food options and encouraged frequent attempts at oral intake, including protein foods; has previously provided food list -Continue 2 Boost per day between oral intake; may consume at smaller increments Nutrition Monitor and Evaluation -Oral intake -Weight Patient/Caregiver verbalized understanding of recommendations and plan. yes RD contact information was provided and pt was encouraged to contact with additional nutrition-related questions/concerns PRN. [1] Patient Active Problem List Diagnosis Stroke (CMS/HCC) HLD (hyperlipidemia) GERD (gastroesophageal reflux disease) JU[place] (obstructive sleep apnea) Former smoker Obesity Electrolyte abnormality Feeding difficulties Hypothyroid Esophageal cancer Crohn disease (CMS/HCC) Respiratory insufficiency Hypertension BPH (benign prostatic hyperplasia) Anemia Thrombocytopenia (CMS/HCC) [2] Outpatient Medications Prior to Visit Medication Sig Dispense Refill acetaminophen (Tylenol) 160 MG/5ML solution 30 mL by Per J Tube route every 6 hours. 1200 mL 0 armodafinil (Nuvigil) 200 MG tablet Take 1 tablet by mouth daily. aspirin 81 MG chewable tablet Chew 1 tablet daily. (Patient taking differently: Chew 1 tablet everyother day.) 90 tablet 0 Boost VHC (Boost) VHC liquid 237 mL by Per PEG Tube route 4 times a day. (Patient not taking: Reported on 04/23/2025) 83740 mL 5 buPROPion XL (Wellbutrin XL) 300 MG 24 hr tablet Take 1 tablet by mouth daily. Do not crush, chew, or split. Feeding Supplies [facility] Please send months supply of gravity bags [...] 1 tablet by mouth daily. 5 tablet 0 isosource 1.5 Piotr/mL liquid 65 mL/hr [...] day. Take before meals. 90 tablet 1 ondansetron ODT (Zofran-ODT) [address] 1 TABLET UNDER THE TONGUE AND ALLOW TO DISSOLVE 2 TIMES EACH DAY FOR 2 DAYS AFTER CHEMOTHERAPY oxyCODONE (Roxicodone) 1 MG/ML solution 10 mL by Per J Tube route every 6 hours as needed for severe pain. By Day 3, please start using only 5mL every 6 hours 400 mL 0 rosuvastatin (Crestor) 20 MG tablet Take 1 tablet by mouth daily. 30 tablet 0 tamsulosin (Flomax) 0.4 MG 24 hr capsule Take 1 capsule by mouth daily. No facility-administered medications prior to visit. [3] Past Medical History: Diagnosis Date Esophageal cancer Hypothyroidism Sleep apnea Stroke (CMS/HCC) 10/25/2024 [4] Past Surgical History: Procedure Laterality Date BACK SURGERY x4 LUMBAR FUSION PEG TUBE REMOVAL 11/2024 SKIN CANCER EXCISION x2 [5] Family History Problem Relation Name Age of Onset Lung cancer Father Anesthesia problems Neg Hx Malig Hyperthermia Neg Hx [6] Social History Tobacco Use Smoking status: Former Current packs/day: 0.00 Average packs/day: 3.0 packs/day for 33.0 years (99.0 ttl pk-yrs) Types: Cigarettes Start date: 1966 Quit date: 1999 Years since quittin.9 Passive exposure: Past Smokeless tobacco: Never Vaping Use Vaping status: Never Used Substance Use Topics Alcohol use: Not Currently Comment: 1-2 servings weekly Drug use: Never [7] Current Outpatient Medications: acetaminophen (Tylenol) 160 MG/5ML solution, 30 mL by Per J Tube route every 6 hours., Disp: 1200 mL, Rfl: 0 armodafinil (Nuvigil) 200 MG tablet, Take 1 tablet by mouth daily., Disp: , Rfl: aspirin 81 MG chewable tablet, Chew 1 tablet daily. (Patient taking differently: Chew 1 tablet every other day.), Disp: 90 tablet, Rfl: 0 [Paused] Boost VHC (Boost) VHC liquid, 237 mL by Per PEG Tube route 4 times a day. (Patient not taking: Reported on 04/23/2025), Disp: 99923 mL, Rfl: 5 buPROPion XL (Wellbutrin XL) 300 MG 24 hr tablet, Take 1 tablet by mouth daily. Do not crush, chew,or split., Disp: , Rfl: Feeding Supplies [facility], Please send months supply of gravity bags and syringes with monthly order, Disp: 1 each, Rfl: 5 fenofibrate (Triglide) 160 MG tablet, Take 1 tablet by mouth daily., Disp: , Rfl: fluticasone-salmeterol (Advair Diskus) 250-50 MCG/ACT diskus inhaler, Inhale 1 puff 2 times a day. Rinse mouth with water after use to reduce aftertaste and incidence of candidiasis. Do not swallow.,Disp: , Rfl: furosemide (Lasix) 20 MG tablet, Take 1 tablet by mouth daily., Disp: 5 tablet, Rfl: 0 isosource 1.5 Piotr/mL liquid, 65 mL/hr by Per J Tube route continuously at 65 mL/hr. Equivalent Substitutions Allowed? Yes, Disp: 1 each, Rfl: 0 Levothyroxine Sodium (Thyquidity) 100 MCG/5ML oral solution, 10 mL by Per J Tube route every morning., Disp: 100 mL, Rfl: 0 losartan (Cozaar) 25 MG tablet, Take 1 tablet by mouth daily., Disp: , Rfl: metoclopramide (Reglan) 5 MG tablet, Take 1 tablet by mouth 3 times a day. Take before meals., Disp: 90 tablet, Rfl: 1 ondansetron ODT (Zofran-ODT) 8 MG disintegrating tablet, PLACE 1 TABLET UNDER THE TONGUE AND ALLOW TO DISSOLVE 2 TIMES EACH DAY FOR 2 DAYS AFTER CHEMOTHERAPY, Disp: , Rfl: oxyCODONE (Roxicodone) 1 MG/ML solution, 10 mL by Per J Tube route every 6 hours as needed for severe pain. By Day 3, please start using only 5mL every 6 hours, Disp: 400 mL, Rfl: 0 rosuvastatin (Crestor) 20 MG tablet, Take 1 tablet by mouth daily., Disp: 30 tablet, Rfl: 0 tamsulosin (Flomax) 0.4 MG 24 hr capsule, Take 1 capsule by mouth daily., Disp: , Rfl: documented in this encounter Plan of Treatment Upcoming Encounters Date Type Department Care Team (Late st Contact Info) Description 08/20/2025 10:15 AM EDT Office Visit Pav [facility] [address] [facility], [address]nd [place] [address] Everett Beyer, DO [address] [address] documented as of this encounter Goals Goal [...] documented as of this encounter Care Teams Fiber Designer Relationship Specialty Start Date End Date Jatinder Clifford MD PCP - General Family Medicine 11/05/24 documented as of this encounter
--- OUTSIDE RECORDS SUMMARY | 2025-05-12 14:14 | XMS_ITS | Encounter Summary ---
Author Organization Healthcare Address [address] [place] [address] Care Team Providers Care Screening Specialist Name Role Phone Pcp, No Primary Care Provider Marzena Sullivan LPN Unavailable Jatinder Samuel MD Primary Care Provider Samra vailable Encounter Details Date Type Department Care Team (Late st Contact Info) Description 06/22/2023 Orders Only External Location [address] [place] [address] Provider, External Social History Tobacco Use Types [...] [facility] 800 [facility], [address]nd [place] [address] Everett Beyer, DO 800 [facility] [address] [place] [address] documented as of this encounter Procedures Procedure [...] on filedocumented in this encounter Care Teams Screening Specialist Relationship Specialty Start Date End Date Pcp, No [address] [place] [address] PCP - General Family Medicine 09/26/24 11/04/24 Jatinder Clifford MD PCP - General Family Medicine 11/05/24 Marzena Sosa LPN [facility] None TCM Nurse 10/28/24 11/27/24 documented as of this encounter
--- OUTSIDE RECORDS SUMMARY | 2025-05-12 14:14 | XMS_ITS | Encounter Summary ---
Author Organization Healthcare Address [address] [place] [address] Care Team Providers Care Kitchen Designer Name Role Phone Pcp, No Primary Care Provider Marzena Sullivan LPN Unavailable Jatinder Samuel MD Primary Care Provider Samra vailable Encounter Details Date Type Department Care Team (Late st Contact Info) Description 10/25/2024 Orders Only External Location [address] [place] [address] Provider, External Social History Tobacco Use Types [...] were you homeless or living in a care home (including now)? No 10/28/2024 Utilities Answer [...] Answer Date of Assessment Author Precautions Fall risk;Aspiration 10/27/2024 4:00 PM E Linh Curry RN * Calculated C-SSRS Risk Score (Lifetime/Recent) [...] Behavior (Lifetime) No 8:00 AM MELBAT Renu Shahid RN documented as of this encounter Mental Status * Question Answer Entry Date Author Precautions Fall risk;Aspiration 10/27/2024 4:00 PM E Linh Curry RN documented in this encounter Plan of Treatment Upcoming Encounters Date Type Department Care Team ([facility] st Contact Info) Description 08/20/2025 10:15 AM EDT Office Visit Pav [facility] [address] [place] [address] Everett Beyer, DO 800 [facility] [address] [place] [address] documented as of this encounter Procedures Procedure [...] documented as of this encounter Care Teams Kitchen Designer Relationship Specialty Start Date End Date Pcp, No [address] [place] [address] PCP - General Family Medicine 09/26/24 11/04/24 Jatinder Clifford MD PCP - General Family Medicine 11/05/24 Marzena Sosa LPN [facility] None TCM Nurse 10/28/24 11/27/24 documented as of this encounter
--- OUTSIDE RECORDS SUMMARY | 2025-05-12 14:14 | XMS_ITS | Encounter Summary ---
Author Organization Healthcare Address [address] [place] [address] Care Team Providers Care Septic Technician Name Role Phone Jatinder Clifford MD Primary Care Provider Samra vailable Encounter Details Date Type Department Care Team (Latest Contact Info) Description 05/07/2025 Travel Social History Tobacco Use Types Packs/Day [...] any time in the past 12 m [facility], were you homeless or living in a nursing home (including now)? No 04/07/2025 [facility] Utilities Answer Date Recorded In [...] Pav [facility] Head[facility] Neck [facility] Respiratory 800 [facility], [address]nd [place] [address] Everett Beyer, DO 800 [facility] [address] [place] [address] documented as of this encounter Goals Goal [...] documented as of this encounter Care Teams Septic Technician Relationship Specialty Start Date End Date Jatinder Clifford MD PCP - General Family Medicine 11/05/24 documented as of this encounter
--- OUTSIDE RECORDS SUMMARY | 2025-05-12 14:14 | XMS_ITS | Encounter Summary ---
Author Organization Healthcare Address [address] [place] [address] Care Team Providers Care Pump Assembler Name Role Phone Jatinder Clifford MD Primary Care Provider Samra vailable Encounter Details Date Type Department Care Team (Late st Contact Info) Description 05/08/2025 Orders Only Pav [facility] [address] [place] [address] Светлана Blandon, RN None None Social History Tobacco Use Types Packs/Day Years [...] money to buy more. Never true 04/07/20 Within the past 12 months, t he [...] in a half-way (including now)? No 04/07/2025 [facility] Utilities Answer Date Recorded In the past [...] Pav [facility] Res[facility] [address] [facility], [address] [place] [address] Everett Beyer, DO 800 [facility] [address] [place] [address] documented as of this encounter Goals Goal [...] documented as of this encounter Care Teams Pump Assembler Relationship Specialty Start Date End Date Jatinder Clifford MD PCP - General Family Medicine 11/05/24 documented as of this encounter
--- OUTSIDE RECORDS SUMMARY | 2025-05-12 14:14 | XMS_ITS | Encounter Summary ---
Author Organization Healthcare Address [address] [place] [address] Care Team Providers Care Crew Boat Operator Name Role Phone Jatinder Clifford MD Primary Care Provider Samra vailable Encounter Details Date Type Department Care Team (Latest Contact Info) Description 04/15/2025 Travel Social History Tobacco Use Types Packs/Day [...] in a penitentiary (including now)? No 04/07/2025 [facility] Utilities Answer Date Recorded In [...] Date of Assessment Author Armijo Environmental surveillance 04/15/2025 12: 00 PM Scott Epstein RN * Calculated C-SSRS Risk Score (Lifetime/Recent) Answer Date of Assessment Author No Risk Indicated 04/15/2025 8:00 AM Scott Epstein RN * Question Answer Date of Assessment Author 1. Wish to be (Past 1 Month) No 04/15/2025 8:00 AM Shavon Epstein RN 2. Non-Specific Active Suicidal Thoughts (Past 1 Month) No 04/15/2025 8:00 AM Shavon Epstein RN 6. Suicidal Behavior (Lifetime) No 04/15/2025 8:00 AM Shavon Epstein, RN documented as of this encounter Mental Status * Question Answer Entry Date Author Armijo Environmental surveillance 04/15 12:00 PM Scott Epstein RN documented in this encounter Plan of Treatment Upcoming Encounters Date Type Department Care Team (Late st Contact Info) Description 08/20/2025 10:15 AM EDT Office Visit Pav [facility]ck [facility] Res[facility] 800 [facility], [address]nd [place] [address] Everett Beyer, DO 800 [facility] [address] [place] [address] documented as of this encounter Goals Goal [...] documented as of this encounter Care Teams Crew Boat Operator Relationship Specialty Start Date End Date Jatinder Clifford MD PCP - General Family Medicine 11/05/24 documented as of this encounter
--- OUTSIDE RECORDS SUMMARY | 2025-05-12 14:14 | XMS_ITS | Encounter Summary ---
Author Organization Healthcare Address [address] [place] [address] Care Team Providers Care Artificial Pearl Maker Name Role Phone Jatinder Clifford MD Primary Care Provider Samra vailable Encounter Details Date Type Department Care Team (Latest Contact Info) Description 05/11/2025 Travel Social History Tobacco Use Types Packs/Day [...] any time in the past 12 m [facility], were you homeless or living in a intermediate (including now)? No 04/07/2025 [facility] Utilities Answer Date Recorded In the [...] Pav [facility] Head[facility] Neck [facility] Respiratory [address] [facility], [address] [place] [address] Everett Beyer, DO [address] [facility] [address] [place] [address] documented as of this encounter Goals Goal Patient Goal Type Associated Problems Recent Progress Patient-Stated? Author Autogenerat ed Goal Care Plan Autogenerated Problem No iNcole yT documented as of this encounter Visit Diagnoses [...] documented as of this encounter Care Teams Artificial Pearl Maker Relationship Specialty Start Date End Date Jatinder Clifford MD PCP - General Family Medicine 11/05/24 documented as of this encounter
--- OUTSIDE RECORDS SUMMARY | 2025-05-12 14:14 | XMS_ITS | Encounter Summary ---
Author Organization Healthcare Address [address] [place] [address] Care Team Providers Care Family Intervention Specialist Name Role Phone Pcp, No Primary Care Provider Marzena Sullivan LPN Unavailable Jatinder Samuel MD Primary Care Provider Samra vailable Encounter Details Date Type Department Care Team (Late st Contact Info) Description 10/25/2024 Orders Only External Location [address] [place] [address] Provider, External Social History Tobacco Use Types [...] Upcoming Encounters Date Type Department Care Team ([facility] st Contact Info) Description 08/20/2025 10:15 AM EDT Office Visit Pav [facility] Head[facility] Neck [facility] Respiratory [address] [place] [address] Everett Beyer, DO [address] [facility] [address] [place] [address] documented as of this encounter Procedures Procedure [...] documented as of this encounter Care Teams Family Intervention Specialist Relationship Specialty Start Date End Date Pcp, No [address] [place] [address] PCP - General Family Medicine 09/26/24 11/04/24 Jatinder Clifford MD PCP - General Family Medicine 11/05/24 Marzena Sosa LPN [facility] None TCM Nurse 10/28/24 11/27/24 documented as of this encounter
--- OUTSIDE RECORDS SUMMARY | 2025-05-12 14:14 | XMS_ITS | Encounter Summary ---
Author Organization Healthcare Address [address] [place] [id number] Care Team Providers Care Master Naval Parachutist Name Role Phone Jatinder Clifford MD Primary Care Provider Samra vailable Encounter Details Date Type Department Care Team ([facility] st Contact Info) Description 05/07/2025 Telephone Pav [facility] [address], [address] [place] [address] Everett Beyer, DO [address] [place] [address] Social History Tobacco Use Types Packs/Day Years [...] time in the past 12 m [facility], were you homeless or living in a senior care (including now)? No 04/07/2025 [facility] [...] * Telephone Encounter - Nicole Ty - 05/07/2025 1:45 PM EST Patient has been rescheduled to 05/28. Candie RN is calling patient to check on him since he is post esophagectomy. * Telephone Encounter - Rere Silva - 05/07/2025 11:02 AM EST Patient Phone Message Reason for Call:Patient need to reschedule his appts. He is not feeling well Best contact number and optimal time of day to reach caller:[phone] Note: Please do not reply to this message. Follow-up communication and further actions as a result of this message need to be communicated with the patient directly, if the patient is not active onMyChart. If the patient is active on MyChart, they will receive notification of the communication/outcome via MyChart. documented in this encounter Plan of Treatment Upcoming Encounters Date Type Department Care Team (Late st Contact Info) Description 08/20/2025 10:15 AM EDT Office Visit Pav [facility] Head[facility] Neck [facility] Respiratory 800 [facility], [address] [place] [address] Everett Beyer, DO [address] [place] [address] documented as of this encounter Goals Goal [...] documented as of this encounter Care Teams Master Naval Parachutist Relationship Specialty Start Date End Date Jatinder Clifford MD PCP - General Family Medicine 11/05/24 documented as of this encounter
--- OUTSIDE RECORDS SUMMARY | 2025-05-12 14:14 | XMS_ITS | Encounter Summary ---
Author Organization Healthcare Address [address] [place] [address] Care Team Providers Care Petroleum Refining Equipment Operator Name Role Phone Jatinder Clifford MD Primary Care Provider Samra vailable Reason for Visit * Reason Comments Nutrition Counseling Encounter Details Date Type Department Care Team (Late st Contact Info) Description 04/23/2025 [facility] [address] [place] [address] Eryn Beyer [id number] Social History Tobacco Use Types Packs/Day Years [...] time in the past 12 m [facility], were you homeless or living in a retirement (including now)? No 04/07/2025 [facility] Utilities Answer Date Recorded In [...] * Clinician Note - Eryn Beyer - 04/23/2025 3:02 PM EST ONCOLOGY NUTRITION ASSESSMENT NOTE Nutrition Visit Type: Nutrition consult Visit Location: [facility] [place] Referral source: Physician Dino Cook is a 70 y.o. male who was referred to [facility] dietitian for post-op nutrition counseling. Problem List[1] Medications Prior to Visit[2] Past Medical, Surgical, Family and Social History: Past Medical History[3] Surgical History[4] Family History[5] Social History[6] Current Medications[7] Nutrition Assessment Anthropometrics: Wt Readings from Last 5 Encounters: 04/23/25 109 kg (239 lb 13.8 oz) 04/19/25 107 kg (236 lb) 04/13/25 94.5 kg (208 lb 5.4 oz) 03/12/25 106 kg (234 lb 5.6 oz) 12/25/24 110 kg (242 lb 4.6 oz) Ht Readings from Last 1 Encounters: 04/23/25 1.829 m (6') BMI Readings from Last 1 Encounters: 04/23/25 32.53 kg/m?? Biochemical: Lab Results Component Value Date GLUCOSE 109 (H) 04/15/2025 CALCIUM 9.1 04/15/2025 NA 137 04/15/2025 K 4.4 04/15/2025 CO2 26 04/15/2025 CL 101 04/15/2025 BUN 17 04/15/2025 CREATININE 0.71 04/15/2025 Interval History: Pt s/p esophagectomy 04/06/25, j-tube placement. May advance diet to full liquids and wean TF. Currently administering ~6 cartons TF in a 24 hour period, Isosource 1.5. Then soft diet after one week.F/u in clinic x 2 weeks. Nutrition Intervention -Discussed parameters of full liquid diet, options to choose including ONS, yogurt, ice cream, strained cream soups, thin cream of wheat, milk, etc. -Discussed decreasing TF by 3 hours total run time daily (this equates to approximately 1 carton decrease per day based on current rate) for ease of understanding -Discussed soft diet that pt will start in one week, including foods to choose and foods that may cause distress, answered pt questions Nutrition education provided: Post-Esophagectomy Diet handout Nutrition Monitor and Evaluation -Oral intake -Weight [...] day. (Patient not taking: Reported on 04/23/2025) 20535 mL 5 buPROPion XL (Wellbutrin XL) 300 MG 24 hr tablet Take 1 tablet by mouth daily. Do not crush, chew, or split. Feeding Supplies [facility] [place] Please send months supply [...] tablet by mouth daily. 5 tablet 0 ibuprofen 100 MG/5ML suspension 20 mL by [...] (Patient not taking: Reported on 04/23/2025), Disp: 70285 mL, Rfl: 5 buPROPion XL (Wellbutrin XL) 300 MG 24 hr tablet, Take 1 tablet by mouth daily. Do not crush, chew,or split., Disp: , Rfl: Feeding Supplies [facility] [place], Please send months supply of gravity bags [...] mouth daily., Disp: 5 tablet, Rfl: 0 ibuprofen 100 MG/5ML suspension, 20 mL by Per J Tube route every 6 hours for 10 days., Disp: 800 mL, Rfl: 0 isosource 1.5 Piotr/mL liquid, 65 mL/hr by Per J Tube route continuously at 65 mL/hr. Equivalent Substitutions Allowed? Yes, Disp: 1 each, Rfl: 0 Levothyroxine Sodium (Thyquidity) 100 MCG/5ML oral solution, 10 mL by Per J Tube route every morning., Disp: 100 mL, Rfl: 0 losartan (Cozaar) 25 MG tablet, Take 1 tablet by mouth daily., Disp: , Rfl: ondansetron ODT (Zofran-ODT) 8 MG disintegrating tablet, [...] 6 hours, Disp: 400 mL, Rfl: 0 pantoprozole (Protonix) 2 mg/mL suspension, 20 mL by Per J Tube route daily for 10 days., Disp: 200mL, Rfl: 0 prochlorperazine (Compazine) 10 MG tablet, Take 1 tablet by mouth every 6 hours as needed for nausea or vomiting., Disp: , Rfl: rosuvastatin (Crestor) 20 MG tablet, Take 1 tablet by mouth daily., Disp: 30 tablet, Rfl: 0 senna (Senokot) 8.8 MG/5ML syrup, 5 mL by Per J Tube route nightly for 10 days., Disp: 240 mL, Rfl:5 tamsulosin (Flomax) 0.4 MG 24 hr capsule, Take 1 capsule by mouth daily., Disp: , Rfl: documented in this encounter Plan of Treatment Upcoming Encounters Date Type Department Care Team ([facility] st Contact Info) Description 08/20/2025 10:15 AM EDT Office Visit Pav [facility] Head[facility] Neck & Respiratory [address] [facility], [address]nd [place] [address] Everett Beyer, DO [address] [address] documented as of this encounter Goals Goal [...] documented as of this encounter Care Teams Petroleum Refining Equipment Operator Relationship Specialty Start Date End Date Jatinder Clifford MD PCP - General Family Medicine 11/05/24 documented as of this encounter
--- OUTSIDE RECORDS SUMMARY | 2025-05-12 14:14 | XMS_ITS | Encounter Summary ---
Author Organization Healthcare Address [address] [place] [address] Care Team Providers Care Mortgage Field Inspector Name Role Phone Jatinder Clifford MD Primary Care Provider Samra vailable Encounter Details Date Type Department Care Team ([facility] st Contact Info) Description 05/08/2025 Telephone Pav [facility] Head, Neck & Respiratory [address] , [address] [place] [address] Светлана Blandon, RN None None Social History [...] any time in the past 12 m [facility], were you homeless or living in a senior living (including now)? No 04/07/2025 [facility] Utilities Answer Date Recorded In the past 12 months has th e [employer], gas, oil, or water [employer] threatened to shut off services in your home? No 04/07/2025 Sex and Gender Information Value Date Recorded Sex Assigned at Not on file Legal Sex Male 4:15 PM EDT Gender Identity Not on file Sexual Orientation Not on file documented as of this encounter Miscellaneous Notes * Telephone Encounter - Светлана Blandon RN - 05/08/2025 3:39 PM EST RN spoke w/ pt. Dr. Beyer would like to see pt in clinic on Friday 05/11 with a CXR. CXR arrival time of 9:[address] Beyer right after. Pt verbalized understanding and agreeable to plan. * Telephone Encounter - Светлана Blandon RN - 05/08/2025 1:52 PM EST RN spoke w/ pt to go over [employer] message and discuss further. Major complaint is stomach indigestion. Food will go down fine, no nausea but, just a lump with some discomfort and occasional pain. Right where his stomach used to be. Pt can drink a boost orally,daily. Weaned off tube feed but, not having luck with solids at this time. Occasionally having trouble catching his breath but, overall that is improving. Pt says that anything over 2 bites is too much, and the lump and slight pain starts. Pt did notice that oxycodone helps when this happens, but he doesn't want to use that, and it's not a long-term solution. He has been trying to keep meals small and stops after the 2-neal bites when he feels like symptoms start. The area around the PEG tube is turning red and getting mildly sore. One of the stitches was pulling a bit after he showered but, it has improved after that. No worse, no better. No red steaks, no discharge. He knows he was supposed to get his tube out at the appointment he missed and wanted to know if he had to keep it in until his new appointment in May. I told him that it will stay in until we're confident that he is tolerating food well and getting adequate nutrition. Pt has an appointment with Dr. Dunaway on Sunday. documented in this encounter Plan of Treatment Upcoming Encounters Date Type Department Care Team (Late st Contact Info) Description 08/20/2025 10:15 AM EDT Office Visit Pav [facility] Head[facility] Neck & Respiratory [address] [facility], [address] [place] [address] Everett Beyer, DO [address] [facility] [address] [place] [address] documented as of this encounter Goals Goal [...] documented as of this encounter Care Teams Mortgage Field Inspector Relationship Specialty Start Date End Date Jatinder Clifford MD PCP - General Family Medicine 11/05/24 documented as of this encounter
--- OUTSIDE RECORDS SUMMARY | 2025-05-12 14:14 | XMS_ITS ---
Author Organization Healthcare Address [address] [place] [address] Care Team Providers Care Information Technology Intern Name Role Phone Jatinder Clifford MD Primary Care Provider Samra vailable Active Problems Problem Noted Date Diagnosed Date Esophageal cancer 04/06/2025 Assessment & Plan (04/07/2025 9:53 AM EST): HX of esophageal cancer S/p Iglesia Romero Esophagectomy with TSS on 04/06 Strict NPO Chest tube management and SUZAN drain management per TSS Assessment & Plan (04/06/2025 3:00 PM EST): HX of esophageal cancer S/p [place] Romero Esophagectomy with TSS on 04/06 Strict NPO Chest tube management and SUZAN drain management per TSS Crohn disease 04/06/2025 Assessment & Plan (04/06/2025 1:59 PM EST): HX of Respiratory insufficiency 04/06/2025 Overview (04/09/2025): HX of COPD Assessment & Plan (04/07/2025 9:53 AM EST): HX of COPD and former smoker On 2lpm via NC No positive pressure per TSS Nebs PRN Chest tube care per TSS Assessment & Plan (04/06/2025 3:00 PM EST): HX of COPD and former smoker On xxx of oxygen No positive pressure per TSS Nebs PRN Chest tube care per TSS Hypertension 04/06/2025 Assessment & Plan (04/07/2025 9:53 AM EST): PRN hydralazine and labetalol for now Restart home medications when appropriate Nitroglycerin gtt off Assessment & Plan (04/06/2025 3:00 PM EST): PRN hydralazine and labetalol for now Restart home medications when appropriate Nitroglycerin gtt per TSS for hypertension SBP goal 160-180 BPH (benign prostatic hyperplasia) 04/06/2025 Assessment & Plan (04/07/2025 9:53 AM EST): Restart home Flomax when appropriate Assessment & Plan (04/06/2025 3:00 PM EST): Restart home Flomax when appropriate Anemia 04/06/2025 Overview (04/06/2025): Assessment & Plan (04/07/2025 9:53 AM EST): Hemoglobin 10.9 this AM Monitor with AM labs Assessment & Plan (04/06/2025 3:21 PM EST): Hemoglobin 12.9 post-op Monitor with AM labs Thrombocytopenia 04/06/2025 Assessment & Plan (04/07/2025 9:53 AM EST): Platelets 124 this AM Monitor with AM labs Assessment & Plan (04/06/2025 3:21 PM EST): Platelet 121 Monitor with AM labs Stroke 10/25/2024 Overview (04/06/2025): HX of R MCA territory stroke No thrombectomy Assessment & Plan (04/06/2025 1:59 PM EST): HX of CVA and TIA HLD (hyperlipidemia) 10/25/2024 Overview (10/25/2024): Continue statin Assessment & Plan (04/07/2025 9:53 AM EST): Home statin when appropriate Assessment & Plan (04/06/2025 3:00 PM EST): Home statin when appropriate GERD (gastroesophageal reflux disease) Overview (10/25/2024): Continue PPI Assessment & Plan (04/07/2025 9:53 AM EST): IV PPI for now Assessment & Plan (04/06/2025 3:00 PM EST): IV PPI for now JUAN DIEGO (obstructive sleep apnea) 10/25/2024 Overview (04/09/2025): Complicates all aspects of care. Assessment & Plan (04/07/2025 9:53 AM EST): No positive pressure s/p esophagectomy per TSS See respiratory insufficiency overview Assessment & Plan (04/06/2025 3:00 PM EST): No positive pressure s/p esophagectomy per TSS See respiratory insufficiency overview Former smoker 10/25/2024 Overview (10/25/2024): Complicates all aspects of care. Assessment & Plan (04/07/2025 9:53 AM EST): Complicates all aspects of care Assessment & Plan (04/06/2025 3:00 PM EST): Complicates all aspects of care Obesity 10/25/2024 Overview (10/25/2024): Complicates all aspects of care. Assessment & Plan (04/07/2025 9:53 AM EST): BMI 31.7 Complicates all aspects of care Assessment & Plan (04/06/2025 3:00 PM EST): BMI 31.7 Complicates all aspects of care Electrolyte abnormality 10/25/2024 Overview (10/25/2024): Replace and trend per ICU protocol Assessment & Plan (04/07/2025 9:53 AM EST): Hypomagnesemia Monitor with AM labs Replace as needed Assessment & Plan (04/06/2025 3:00 PM EST): Hypocalcemia Monitor with AM labs Replace as needed Feeding difficulties 10/25/2024 Assessment & Plan (04/07/2025 9:53 AM EST): Secondary to esophageal cancer Now with J-tube; no crushed medications Assessment & Plan (04/06/2025 3:00 PM EST): Secondary to esophageal cancer Now with J-tube; no crushed medications Hypothyroid 10/25/2024 Overview (04/09/2025): TSH 48.20 on 10/25/2024 Resume home medications as appropriate. Assessment & Plan (04/07/2025 9:53 AM EST): Continue home Synthroid when appropriate Assessment & Plan (04/06/2025 3:00 PM EST): Continue home Synthroid when appropriate Current Treatment and Therapy Plans No current plan information found. Past Treatment and Therapy Plans No past plan information found. Lifetime Dose Tracking * Chemical Lifetime Dose Automatic Entry Manual Entr y Fluoro Time 1.4 minutes 1.4 minutes 0 minutes Air Kerma 19 mGy 19 mGy 0 mGy Resolved Problems Problem Noted Date Diagnosed Date Resolved Date Aphasia 10/25/2024 04/06/2025
--- OUTSIDE RECORDS SUMMARY | 2025-05-12 14:14 | XMS_ITS | Encounter Summary ---
Author Organization Healthcare Address [address] [place] [address] Care Team Providers Care Cylinder Batcher Name Role Phone Pcp, No Primary Care Provider Marzena Sullivan LPN Unavailable Jatinder Samuel MD Primary Care Provider Samra vailable Encounter Details Date Type Department Care Team (Late st Contact Info) Description 10/25/2024 Orders Only External Location [address] [place] [id number] Kendra Ayon, DO [address] [place] [address] Social History Tobacco Use Types [...] any time in the past 12 m [facility], were you homeless or living in a alf (including now)? No 10/28/2024 Utilities Answer Date [...] Means RN documented as of this encounter Mental Status * Question Answer Entry Date Author Precautions Fall risk;Aspiration 10/27/2024 4:00 PM E Linh Curry RN documented in this encounter Plan of Treatment Upcoming Encounters Date Type Department Care Team (Late st Contact Info) Description 08/20/2025 10:15 AM EDT Office Visit Pav [facility] Head[facility] Neck & Respiratory [address] [facility], [address]nd [place] [address] Everett Beyer, DO [address] [facility] [address] [place] [address] documented as of this encounter Procedures Procedure Name Priority Date/Time Associated Diagnosis Comments CT ANGIO HEAD 10/25/2024 2:55 PM EDT documented in this encounter Results * CT Angio Head (10/25/2024 2:55 PM EDT) Anatomical Region Laterality Modality [place] [facility] [place] Computed Tomogr aphy 10/25/2024 2:55 PM EDT us Kendra Ayon DO IMG CT PROCEDURES Final Result documented in this encounter Visit Diagnoses Not on filedocumented in this encounter Additional Health Concerns Assessment Noted Time A Body Mass Index follow-up plan has been documented for the patient 10/27/2024 3:35 PM EDT documented as of this encounter Care Teams Cylinder Batcher Relationship Specialty Start Date End Date Pcp, No [address] [place] [address] PCP - General Family Medicine 09/26/24 11/04/24 Jatinder Clifford MD PCP - General Family Medicine 11/05/24 Marzena Sosa LPN [facility] None TCM Nurse 10/28/24 11/27/24 documented as of this encounter
--- OUTSIDE RECORDS SUMMARY | 2025-05-12 14:14 | XMS_ITS | Encounter Summary ---
Author Organization Healthcare Address [address] [place] [address] Care Team Providers Care Plant Assigner Name Role Phone Jatinder Clifford MD Primary Care Provider Samra vailable Encounter Details Date Type Department Care Team (Latest Contact Info) Description 04/23/2025 Travel Social History Tobacco Use Types Packs/Day [...] living in a custodial (including now)? No 04/07/2025 [facility] Utilities Answer Date Recorded In the [...] Pav CC Head, Neck & Respiratory [address] [facility], [address] [place] [address] Everett Beyer, DO [address] [facility] [address] [place] [address] documented as of this encounter Goals Goal [...] documented as of this encounter Care Teams Plant Assigner Relationship Specialty Start Date End Date Jatinder Clifford MD PCP - General Family Medicine 11/05/24 documented as of this encounter
--- OUTSIDE RECORDS SUMMARY | 2025-05-12 14:14 | XMS_ITS | Encounter Summary ---
Author Organization Healthcare Address [address] [place] [address] Care Team Providers Care Clothing Sales Assistant Name Role Phone Jatinder Clifford MD Primary Care Provider Samra vailable Encounter Details Date Type Department Care Team (Late st Contact Info) Description 05/11/2025 Orders Only Pav CC Head, Neck & Respiratory [address] [place] [address] Marsha Ellsworth, RN AMB-HEAD NECK AND RESPIRATORY [...] living in a mcfp (including now)? No 04/07/2025 [facility] Utilities Answer Date Recorded In the [...] Head, Neck & Respiratory [address] [facility], [address] [place] [address] Everett Beyer, DO [address] [facility] [address] [place] [address] documented as of this encounter Goals Goal Patient Goal Type Associated Problems Recent Progress Patient-Stated? Author Autogenerat ed Goal Care Plan Autogenerated Problem No Nicole Ty documented as of this encounter Visit Diagnoses Diagnosis Malignant neoplasm of lower third of esophagus- Primary documented in this encounter Additional Health Concerns [...] documented as of this encounter Care Teams Clothing Sales Assistant Relationship Specialty Start Date End Date Jatinder Clifford MD PCP - General Family Medicine 11/05/24 documented as of this encounter
--- OUTSIDE RECORDS SUMMARY | 2025-05-12 14:14 | XMS_ITS | Encounter Summary ---
Author Organization Healthcare Address [address] [place] [address] Care Team Providers Care Wrapping Clerk Name Role Phone Pcp, No Primary Care Provider Marzena Sullivan LPN Unavailable Jatinder Samuel MD Primary Care Provider Samra vailable Encounter Details Date Type Department Care Team (Late st Contact Info) Description 10/25/2024 Orders Only External Location [address] [place] [address] Provider, External Social History Tobacco Use Types [...] Upcoming Encounters Date Type Department Care Team ([facility] st Contact Info) Description 08/20/2025 10:15 AM EDT Office Visit Pav CC Head, Neck & Respiratory [address] [place] [address] Everett Beyer, DO [address] [facility] [address] [place] [address] documented as of this encounter Procedures Procedure [...] documented as of this encounter Care Teams Wrapping Clerk Relationship Specialty Start Date End Date Pcp, No [address] [place] [address] PCP - General Family Medicine 09/26/24 11/04/24 Jatinder Clifford MD PCP - General Family Medicine 11/05/24 Marzena Sosa LPN [facility] None TCM Nurse 10/28/24 11/27/24 documented as of this encounter
--- OUTSIDE RECORDS SUMMARY | 2025-05-12 14:14 | XMS_ITS | Clinical Summary ---
Author Organization Healthcare Address [address] [place] [address] Care Team Providers Care Internet Sales Manager Name Role Phone Jatinder Clifford MD Primary Care Provider Samra vailable Allergies No known active allergies Medications armodafinil (Nuvigil) 200 MG tablet Take 1 tablet by mouth daily. Active aspirin 81 MG chewable tablet Chew 1 tablet daily. 90 tablet Active Additional Information Patient taking differently:81 mg OralEvery other day, Reported on 04/23/2025 fluticasone-salme terol (Advair Diskus) 250-50 MCG/ACT diskus inhaler Inhale [...] 1 tablet by mouth daily. 30 tablet Active tamsulosin (Flomax) 0.4 MG 24 hr capsule Take 1 capsule by mouth daily. Active Boost [facility] (Boost) [facility] liquid 237 mL by Per PEG Tube route 4 times a day. 15319 mL 5 025 2025 Active Additional Information Patient not taking.Reported on 04/23/2025 [place] [facility] [place] supply of gravity bags and syringes with monthly order 1 each 5 Active ondansetron ODT (Zofran-ODT) [address] 1 TABLET UNDER THE TONGUE AND ALLOW TO DISSOLVE 2 TIMES EACH DAY FOR 2 DAYS AFTER CHEMOTHERAPY Active isosource 1.5 Piotr/mL liquid 65 mL/hr by Per J Tube route continuously at 65 mL/hr. Equivalent Substitutions Allowed? Yes 1 each 2025 Active acetaminophen (Tylenol) 160 MG/5ML solution 30 mL by Per J Tube route every 6 hours. 1200 mL Active Levothyroxine Sodium (Thyquidity) 100 MCG/5ML oral solution 10 mL by Per J Tube route every morning. 100 mL Active oxyCODONE (Roxicodone) 1 MG/ML solution 10 mL by Per J Tube route every 6 hours as needed for severe pain. By Day 3, please start using only 5mL every 6 hours 400 mL Active furosemide (Lasix) 20 MG tablet Take 1 tablet by mouth daily. 5 tablet Active metoclopramide (Reglan) 5 MG tablet Take 1 tablet by mouth 3 times a day. Take before meals. 90 tablet 1 Active levothyroxine (Synthroid, Levoxyl) 200 MCG tablet Take 1 tablet by mouth daily. 2024 Discontinued(S top Taking at Discharge) prochlorperazine (Compazine) 10 MG tablet Take 1 tablet by mouth every 6 hours as needed for nausea or vomiting. 2024 Discontinued omeprazole (PriLOSEC) [address] capsule Take 1 capsule by mouth daily. 2024 Discontinued(S top Taking at Discharge) oxyCODONE (Roxicodone) 1 MG/ML solution Take 10 mL by mouth every 6 hours as needed for severe pain. By Day 3, please start using only 5mL every 6 hours 400 mL 2024 Discontinued aspirin 81 MG oral suspension 81 mL by Per J Tube route daily for 10 days. 810 mL 2024 Discontinued(S top Taking at Discharge) ibuprofen 100 MG/5ML suspension 20 mL by Per J Tube route every 6 hours for 10 days. 800 mL 2024 pantoprozole (Protonix) 2 mg/mL suspension 20 mL by Per J Tube route daily for 10 days. 200 mL 2024 senna (Senokot) 8.8 MG/5ML syrup 5 mL by Per J Tube route nightly for 10 days. 240 mL 5 2024 Active Problems Problem Noted Date Diagnosed Date Esophageal cancer 04/06/2025 Assessment & Plan (04/07/2025 9:53 AM EST): HX of esophageal cancer S/p [place] Dariana Esophagectomy with TSS on 04/06 Strict NPO Chest tube management and SUZAN drain management per TSS Assessment & Plan (04/06/2025 3:00 PM EST): HX of esophageal cancer S/p Jose C Dariana Esophagectomy with TSS on 04/06 Strict NPO [...] PM EST): Continue home Synthroid when appropriate Resolved Problems Problem Noted Date Diagnosed Date Resolved Date Aphasia 10/25/2024 04/06/2025 Encounters Date Type Department Care Team Description 05/11/2025 10:30 AM EST Office Visit [facility] [address] [phone] Everett Beyer, DO Malignant neoplasm of lower third of esophagus 05/11/2025 9:42 AM EST - 05/11/2025 11:59 PM EST Hospital Encounter [facility] Radiology [address] [place] [phone] Malignant neoplasm of lower third of esophagus Discharge Disposition: Home or Self Care 05/11/2025 Nutrition [facility] Multid[facility] Oncology [facility] [address] [place] [phone] Eryn Beyer 05/11/2025 Orders Only [facility] 800 [facility], [address] [place] [phone] Marsha Ellsworth, RN Malignant neoplasm of lower third of esophagus (Primary Dx) 05/11/2025 Travel 05/09/2025 Travel 05/08/2025 Orders Only [facility] [address] [phone] Светлана Blandon, RN 05/08/2025 Telephone [facility] [address] [phone] Светлана Blandon, RN 05/07/2025 Telephone [facility] [address] [phone] Everett Beyer, DO 05/07/2025 Travel 04/23/2025 1:45 PM EST Office Visit [facility] [address] [phone] Everett Beyer, DO Malignant neoplasm of lower third of esophagus (Primary Dx) 04/23/2025 12:45 PM EST - 04/23/2025 11:59 PM EST Hospital Encounter [facility] Radiology [address] [place] [phone] Malignant neoplasm of lower third of esophagus Discharge Disposition: Home or Self Care 04/23/2025 Nutrition [facility] Mult[facility] Oncology [facility] [address] [place] [address] Eryn Beyer 04/23/2025 Travel 04/21/2025 Travel 04/20/2025 Telephone [facility] [address] [phone] Everett Beyer, DO 04/20/2025 Orders Only [facility] [address] [phone] Marsha Ellsworth, RN Malignant neoplasm of lower third of esophagus (Primary Dx) 04/19/2025 7:50 PM EST - 04/19/2025 10:02 PM EST Emergency [facility] Emergency Department [address] [place] [phone] Feeding tube dysfunction, initial encounter (Primary Dx) Discharge Disposition: Home or Self Care 04/19/2025 Travel 04/15/2025 Travel 04/14/2025 Travel 04/13/2025 Travel 04/12/2025 Travel 04/11/2025 Travel 04/10/2025 Travel 04/09/2025 Travel 04/08/2025 Travel 04/07/2025 Travel 04/06/2025 7:30 AM EST - 04/06/2025 2:00 PM EST Surgery [facility] A OPERATING ROOM [address] [place] [address] Everett Beyer, DO JOSE C DARIANA ESOPHAGECTOMY [40044 (CPT ) +3 more] 04/06/2025 7:30 AM EST Anesthesia Event [facility] A OPERATING ROOM [address] [place] [address] Vivek Vitale MD 04/06/2025 5:25 AM EST - 04/15/2025 4:25 PM EST Hospital Encounter [facility] A Inpatient [address] [place] [address] Everett Beyer, DO Malignant neoplasm of lower third of esophagus Discharge Disposition: Home or Self Care 04/06/2025 Travel 03/30/2025 Travel 03/12/2025 2:00 PM EDT Office Visit [facility] [address] [phone] Everett Beyer, DO Malignant neoplasm of lower third of esophagus 03/12/2025 11:43 AM EDT - 03/12/2025 11:59 PM EDT Hospital Encounter [facility] Pulmonary Function Testing [address] [place] [address] Malignant neoplasm of lower third of esophagus; Dyspnea, unspecified type Discharge Disposition: Home or Self Care 03/12/2025 9:15 AM EDT - 03/12/2025 11:42 AM EDT Hospital Encounter [facility] PET Scan [address] [place] [address] Discharge Disposition: Home or Self Care 03/12/2025 9:15 AM EDT - 03/12/2025 11:42 AM EDT Hospital Encounter [facility] PET Scan [address] [place] [address] Malignant neoplasm of lower third of esophagus Discharge Disposition: Home or Self Care 03/12/2025 Nutrition [facility] Respiratory 800 [facility], [address] [place] [address] Candie Beyer 03/12/2025 Travel 03/11/2025 Travel 03/11/2025 Telephone [facility] Head[facility] Neck [facility] Respiratory 800 [facility], [address] [place] [phone] Marsha Ellsworth RN 03/05/2025 Travel 02/11/2025 Orders Only [facility] Head[facility] Neck [facility] Respiratory [address] [facility], [address] [place] [phone] Marsha Ellsworth RN Malignant neoplasm of lower third of esophagus (CMS/HCC) (Primary Dx); Dyspnea, unspecified type from Last 3 Months Family History Medical [...] any time in the past 12 m [facility], were you homeless or living in a halfway (including now)? No 04/07/2025 [facility] Utilities [...] Pulse 55 05/11/2025 10:21 AM EST Temperature 36.4 C (97.5 F) 04/23/2025 12:54 PM EST Respiratory Rate 20 05/11/2025 10:21 AM EST Oxygen Saturation 97% 05/11/2025 10:21 AM EST Inhaled Oxygen Concentration - - Weight 106 kg (232 lb 12.9 oz) 05/11/2025 10:21 AM EST Height 182.9 cm (6') 04/23/2025 12:54 PM EST Body Mass Index 31.57 04/23/2025 12:54 PM EST Plan of Treatment Upcoming Encounters Date Type Department Care Team (Late st Contact Info) Description 08/20/2025 10:15 AM EDT Office Visit [facility] Res[facility] [address] [facility], [address] [place] [address] Everett Beyer, DO 800 [facility] [address] [place] [address] Health Maintenance Due Date Last Done Comments [facility]-Medicare Annual Wellness (AWV) 1955 [facility]-/Child/Adol SDOH Screenings 1955 [id number] Vaccine (#1) 1954 [facility]-DTaP,Tdap,and Td Vaccines (1 - Tdap) 1973 [facility]-Zoster Vaccines (1 of 2) 1973 CT Colonography 1999 Colonoscopy 1999 FIT-DNA 1999 FIT 1999 FOBT 1999 Sigmoidoscopy 1999 [facility]-Colorectal Cancer Screening 1999 [facility]-RSV Vaccine: 60+ Years or (1 - Risk 50-74 years 1-dose series) 2004 [facility]-Abdominal Aortic Aneurysm (AAA) Screening 2019 [facility]- SDOH Screenings 10/05/2025 [facility]-Adult SDOH Screenings 10/05/2025 04/07/2025 [facility]-Depression Screening 10/31/2025 10/31/2024, 10/19 [facility]-Hepatitis C Screening Completed 10/25/2024 [facility]-Influenza Vaccine Completed 03/23/2025, 023 [facility]-Pneumococcal Vaccine: 50+ Years Completed 03/23/2025 [facility]-Obesity Intervention Completed 025, 04/23/2025, 03/12/2025, Additional history exists HPV Vaccines (No Doses Required) Completed [facility]-HIB Vaccines Aged Out No longer e [...] on patient's age to complete this topic Goals Goal Patient Goal Type Associated Problems Recent Progress Patient-Stated? Author Autogenerat ed Goal Care Plan Autogenerated Problem No Ty, Nicole A Medical Devices Implanted Type Area Rotary Drum Dyer Device Identifier Shelf Expiration Date Model / Serial / Lot Plate Plate N/A: Back Procedures Procedure Name Priority Date/Time Associated Diagnosis Comments XR CHEST 2 VIEWS Routine 05/11/2025 9:59 AM EST Malignant neoplasm of lower third of esophagus XR CHEST 2 VIEWS Routine 04/23/2025 1:46 PM EST Malignant neoplasm of lower third of esophagus XR PEG TUBE CHECK PORTABLE STAT 04/19/2025 9:18 PM EST XR CHEST 1 VIEW Timed 04/15/2025 4:42 AM EST RENAL FUNCTION PANEL, PLASMA Routine 04/15/2025 3:24 AM EST MAGNESIUM, PLASMA Routine 04/15/2025 3:2 4 AM EST CBC W/O DIFFERENTIAL Routine 04/15/2025 3:24 AM EST POCT GLUCOSE METER UNSOLICITED RESULTS Routine 04/15/2025 12:01 AM EST POCT GLUCOSE METER UNSOLICITED RESULTS Routine 04/14/2025 4:55 PM EST POCT GLUCOSE METER UNSOLICITED RESULTS Routine 04/14/2025 12:01 PM EST POCT GLUCOSE METER UNSOLICITED RESULTS Routine 04/14/2025 7:37 AM EST XR CHEST 1 VIEW Timed 04/14/2025 6:31 AM EST RENAL FUNCTION PANEL, PLASMA Routine 04/14/2025 3:34 AM EST MAGNESIUM, PLASMA Routine 04/14/2025 3:3 4 AM EST CBC W/O DIFFERENTIAL Routine 04/14/2025 3:34 AM EST POCT GLUCOSE [...] UNSOLICITED RESULTS Routine 04/13/2025 5:59 AM EST MAGNESIUM, PLASMA Routine 04/13/2025 5:2 5 AM EST RENAL FUNCTION PANEL, PLASMA Routine 04/13/2025 5:25 AM EST CBC W/O DIFFERENTIAL Routine 04/13/2025 5:25 AM EST POCT GLUCOSE METER UNSOLICITED RESULTS Routine 04/12/2025 11:53 PM EST POCT GLUCOSE METER UNSOLICITED RESULTS Routine 04/12/2025 5:55 PM EST POCT GLUCOSE METER UNSOLICITED RESULTS Routine 04/12/2025 11:35 AM EST POCT GLUCOSE METER UNSOLICITED RESULTS Routine 04/12/2025 5:57 AM EST MAGNESIUM, PLASMA Routine 04/12/2025 4:2 3 AM EST RENAL FUNCTION PANEL, PLASMA Routine 04/12/2025 4:23 AM EST CBC W/O DIFFERENTIAL Routine 04/12/2025 4:23 AM EST XR CHEST [...] UNSOLICITED RESULTS Routine 04/11/2025 5:53 AM EST MAGNESIUM, PLASMA Routine 04/11/2025 3:5 1 AM EST RENAL FUNCTION PANEL, PLASMA Routine 04/11/2025 3:51 AM EST CBC W/O DIFFERENTIAL Routine 04/11/2025 3:51 AM EST XR CHEST [...] UNSOLICITED RESULTS Routine 04/10/2025 12:43 AM EST MAGNESIUM, PLASMA Routine 04/10/2025 12: 43 AM EST RENAL FUNCTION PANEL, PLASMA Routine 04/10/2025 12:43 AM EST CBC W/O DIFFERENTIAL Routine 04/10/2025 12:43 AM EST OXYGEN THERAPY Routine 04/09/2025 8:00 PM EST XR CHEST 1 VIEW Timed 04/09/2025 3:34 PM EST POCT GLUCOSE METER UNSOLICITED RESULTS Routine 04/09/2025 8:56 AM EST OXYGEN THERAPY Routine 04/09/2025 8:00 AM EST MAGNESIUM, PLASMA Routine 04/09/2025 5:0 1 AM EST RENAL FUNCTION PANEL, PLASMA Routine 04/09/2025 5:01 AM EST CBC W/O DIFFERENTIAL Routine 04/09/2025 5:01 AM EST XR CHEST [...] 1 VIEW Routine 04/08/2025 3:14 AM EST MAGNESIUM, PLASMA Routine 04/08/2025 1:5 8 AM EST RENAL FUNCTION PANEL, PLASMA Routine 04/08/2025 1:58 AM EST CBC W/O DIFFERENTIAL Routine 04/08/2025 1:58 AM EST POCT GLUCOSE METER UNSOLICITED RESULTS Routine 04/07/2025 11:38 PM EST OXYGEN THERAPY Routine 04/07/2025 8:00 PM EST POCT GLUCOSE METER UNSOLICITED RESULTS Routine 04/07/2025 6:13 PM EST POCT GLUCOSE METER UNSOLICITED RESULTS Routine 04/07/2025 1:19 PM EST AR CRITICAL CARE, E/M 30-74 MINUTES Routine 04/07/2025 9:38 AM EST Malignant neoplasm of lower third of esophagus OXYGEN THERAPY Routine 04/07/2025 8:00 AM EST XR CHEST 1 VIEW Routine 04/07/2025 2:39 AM EST ECG ADULT STAT 04/07/2025 1:42 AM EST BLOOD GAS PANEL, ARTERIAL Routine 04/07/2025 1:18 AM EST IONIZED CALCIUM, WHOLE BLOOD Routine 04/07/2025 1:18 AM EST MAGNESIUM, PLASMA Routine 04/07/2025 12: 54 AM EST RENAL FUNCTION PANEL, PLASMA Routine 04/07/2025 12:54 AM EST CBC W/O DIFFERENTIAL Routine 04/07/2025 12:54 AM EST OXYGEN THERAPY Routine 04/06/2025 8:00 PM EST DALIA AURIS SURVEILLANCE BY PCR Routine 04/06/2025 3:55 PM EST MULTI DRUG RESISTANCE TEST Routine 04/06/2025 3:55 PM EST XR CHEST 1 VIEW STAT 04/06/2025 2:57 PM EST AR CRITICAL CARE, E/M 30-74 MINUTES Routine 04/06/2025 2:56 PM EST Malignant neoplasm of lower third of esophagus MAGNESIUM, PLASMA Routine 04/06/2025 2:0 9 PM EST RENAL FUNCTION PANEL, PLASMA Routine 04/06/2025 2:09 PM EST CBC W/O DIFFERENTIAL Routine 04/06/2025 2:09 PM EST BLOOD GAS PANEL, ARTERIAL Routine 04/06/2025 2:09 PM EST OXYGEN THERAPY [...] Malignant neoplasm of lower third of esophagus ANESTHESIA PERIPHERAL IV PLACEMENT Routine 04/06/2025 8:08 AM EST PB ANESTHESIA NON-TIMED PROCEDURE PLACEHOLDER Routine 04/06/2025 8:07 AM EST PB ANESTHESIA PLACEHOLDER Routine 04/06/2025 7:39 AM EST AR AN ELECTIVE ENDOTRACHEAL AIRWAY Routine 04/06/2025 7:39 AM EST AR BRONCHOSCOPY,DIAGNOSTI C 04/06/2025 7:14 AM EST Malignant neoplasm of lower third of esophagus AR EDG INTRALUMINAL TUBE/CATHETER INSERTION 04/06/2025 7:14 AM EST Malignant neoplasm of lower third of esophagus AR LAP, SURG JEJUNOSTOMY 04/06/2025 7:14 AM EST Malignant neoplasm of lower third of esophagus AR ESOPHAGECTOMY DISTAL 2/3 W/LAPAROSCOPIC MOBLJ 04/06/2025 7:14 AM EST Malignant neoplasm of lower third of esophagus TYPE AND SCREEN Routine 04/06/2025 7:05 AM EST PREPARE RBC Routine 04/06/2025 6:14 AM EST HC DIFFUSING CAPACITY - CARBON MONOXIDE DIFFUSING CAPACITY Routine 03/12/2025 12:36 PM EDT Malignant neoplasm of lower third of esophagus Dyspnea, unspecified type PET/CT FDG SKULL BASE TO MID THIGH Routine 03/12/2025 11:00 AM EDT Malignant neoplasm of lower third of esophagus HEPATITIS C ANTIBODY - ED W/REFLEX TO HCV QUANT PCR STAT 10/25/2024 6:02 PM EDT from Last 3 Months or Most Recently Relevant to Health Maintenance Results * XR Chest 2 Views (05/11/2025 9:59 AM EST) Only the most recent of2 resultswithin the time period is included. Anatomical Region Laterality Modality Chest Digital Radiogra [...] Song Ayon MD on 05/11/2025 10:49 AM us Everett Beyer DO IMG XR PROCEDURES Final Resul t * XR PEG Tube Check Portable (04/19/2025 [...] Isaac Ngo MD on 04/19/2025 9:58 PM us Real Westfall MD IMG XR PROCEDURES Final Resu lt * XR Chest 1 View (04/15/2025 4:42 AM EST) Only the most recent of11 resultswithin the time period is included. Anatomical Region Laterality Modality Chest Digital Radiogra [...] MD on 04/15/2025 7:23 AM Chu Davis STRIKER OUT IMG XR PROCEDURES Final Res ult * (ABNORMAL) CBC W/O Differential (04/15/2025 3:24 AM EST) Only the most recent of10 resultswithin the time period is included. WBC Count 9.12 3.70 - 10.30 10*3/uL LAB HEMATOLOGY METHOD 04/15/2025 3:42 AM EST [facility] RBC Count 4.13(L) 4.60 - 6.10 10*6/uL LAB HEMATOLOGY METHOD 04/15/2025 3:42 AM EST [facility] HGB 13.9 13.7 - 17.5 g/dL LAB HEMATOLOGY METHOD 04/15/2025 3:42 AM EST [facility] HCT 40.2 40.0 - 51.0 % LAB HEMATOLOGY METHOD 04/15/2025 3:42 AM EST [facility] Platelet Count 224 155 - 369 10*3/uL LAB HEMATOLOGY METHOD 04/15/2025 3:42 AM EST [facility] MCV 97 79 - 98 fL LAB HEMATOLOGY METHOD 04/15/2025 3:42 AM EST [facility] MCH 33.7(H) 26.0 - 32.0 pg LAB HEMATOLOGY METHOD 04/15/2025 3:42 AM EST [facility] MCHC 34.6 30.7 - 35.5 g/dL LAB HEMATOLOGY METHOD 04/15/2025 3:42 AM EST [facility] RDW 12.3 11.5 - 14.5 % LAB HEMATOLOGY METHOD 04/15/2025 3:42 AM EST [facility] MPV 10.4 8.8 - 12.5 fL LAB HEMATOLOGY METHOD 04/15/2025 3:42 AM EST [facility] nRBC 0.0 <=0.0 per 100 WBCs LAB HEMATOLOGY METHOD 04/15/2025 3:42 AM EST [facility] Blood Venous blood specimen / Unknown Venipuncture / Unknown 04/15/2025 3:24 AM EST 04/15/2025 3:34 AM EST us Chu T Davis STRIKER OUT LAB BLOOD ORDERABLES Final Result Performing Organization Address City/State/[facility] Co de Phone Number [facility] [address] [place] [address] * Magnesium, Plasma (04/15/2025 3:24 AM EST) Only the most recent of10 resultswithin the time period is included. Magnesium, Plasma 2.1 1.9 - 2.4 mg/dL 04/15/2025 4:03 AM EST [facility] Blood Venous blood specimen / Unknown Venipuncture / Unknown 04/15/2025 3:24 AM EST 04/15/2025 3:34 AM EST us Chu T Davis STRIKER OUT LAB BLOOD ORDERABLES Final Result [facility] [address] [place] [address] * (ABNORMAL) Renal function panel (04/15/2025 3:24 AM EST) Only the most recent of10 resultswithin the time period is included. Glucose, Plasma 109(H) 74 - 99 mg/dL 04/15/2025 4:03 AM EST [facility] BUN, Plasma 17 8 - 23 mg/dL 04/15/2025 4:03 AM EST [facility] Creatinine, Plasma 0.71 0.70 - 1.20 mg/dL 04/15/2025 4:03 AM EST [facility] BUN/Creatinine Ratio 24 04/15/2025 4:03 AM EST [facility] Sodium, Plasma 137 136 - 145 mmol/L 04/15/2025 4:03 AM EST [facility] Potassium, Plasma 4.4 3.6 - 4.9 mmol/L 04/15/2025 4:03 AM EST [facility] Chloride, Plasma 101 97 - 107 mmol/L 04/15/2025 4:03 AM EST [facility] CO2, Plasma 26 22 - 29 mmol/L 04/15/2025 4:03 AM EST [facility] Anion Gap 10 6 - 16 mmol/L 04/15/2025 4:03 AM EST [facility] Total Calcium, Plasma 9.1 8.9 - 10.2 mg/dL 04/15/2025 4:03 AM EST [facility] Phosphorus, Plasma 4.2 2.5 - 4.5 mg/dL 04/15/2025 4:03 AM [facility] Albumin, Plasma 3.8 3.5 - 5.2 g/dL 04/15/2025 4:03 AM EST [facility] eGFRcr 98.1 mL/min/1.7 3m*2 04/15/2025 4:03 AM EST [facility] Comment:Reported eGFRcr in m L/min/1.73m2 is based the CKD-EPI 2020 equation that does not use a race coefficient. Blood Venous blood specimen / Unknown Venipuncture / Unknown 04/15/2025 3:24 AM EST 04/15/2025 3:34 AM EST Chu Davis APRN LAB BLOOD ORDERABLES Final Result Performing Organization Address [facility] Co de Phone Number [facility] [address] [place] [address] * (ABNORMAL) POCT glucose meter (04/15/2025 12:01 AM EST) Only the most recent of28 resultswithin the time period is included. POCT Glucose 121(H) 74 - 99 mg/dL 04/15/2025 12:02 AM EST [facility] Comment:Accuracy of a glucos e result [...] for testing. Comment 04/15/2025 12:02 AM EST [facility] Personnel Research Psychologist ID Francheska Holloway 04/15/20 12:02 AM EST [facility] Device ID [id number] 04/15/2025 12:[address] [facility] Specimen Type POC Capillary 04/15/2025 12:[address] [facility] Blood Capillary blood specimen / Unknown 04/15/2025 12:01 AM EST 04/15/2025 12:02 AM EST Everett Beyer DO LAB POINT OF CARE TE ST DOCKED DEVICE UNSOLICITED RESULTS Final Result Performing Organization Address City/[facility] Co de Phone Number [facility] [address] [place] [address] * FL Esophagram Single Contrast Water Soluble Contrast (04/13/2025 10:18 AM EST) Anatomical Region Laterality Modality Esophagus, stomach and duodenum Digital Radiography Impressions 04/13/2025 2:23 PM EST Postoperative changes of Jose C Dariana esophagectomy. No definite evidence of contrast leak [...] COMPARISON: None. FINDINGS: Esophagus: Postoperative changes of [place] Dariana esophagectomy. Aspiration of water soluble contrast was [...] COMPARISON: None. FINDINGS: Esophagus: Postoperative changes of Jose C Dariana esophagectomy. Aspirationof water soluble contrast was noted the optimal opacification of theesophagus with contrast, limiting the evaluation on current exam. Contrastflows readily through the esophagogastric conduit. No extraluminalcontrast to suggest leak, however limited due to inability to swallowlarge bolus contrast and obtained adequate esophageal dilatation. Normaltransit of contrast through the intra-abdominal stomach into theduodenum. IMPRESSION: Postoperative changes of [place] Dariana esophagectomy. No definite evidence ofcontrast leak though [...] Eric Tellez MD on 04/13/2025 2:23 PM us Everett Beyer DO IMG FLUOROSCOPY PROCEDURES Fi nal Result * AR CRITICAL CARE, E/M 30-74 MINUTES (04/07/2025 9:38 [...] IN CLINIC/BEDSIDE ORDERABL ES Final Result * IONIZED CALCIUM, SYRINGE (04/07/2025 1:18 AM EST) Pathologist [facility] Ionized Calcium, Whole Blood 4.6 4.6 - 5.1 mg/dL LAB HEMATOLOGY METHOD 04/07/2025 1:42 AM EST [facility] Blood Venous blood specimen / Unknown Venipuncture / Unknown 04/07/2025 1:18 AM EST 04/07/2025 1:39 AM EST Amanda Stout APRN, DNP LAB BLOOD ORDERABLES Elena l Result [facility] [address] [place] [address] * (ABNORMAL) Blood gas panel, arterial (04/07/2025 1:18 AM EST) Only the most recent of4 resultswithin the time period is included. pH, Arterial 7.37 7.31 - 7.42 LAB HEMATOLOGY METHOD 04/07/2025 1:43 AM EST [facility] pCO2, Arterial 46(H) 32 - 45 mmHg LAB HEMATOLOGY METHOD 04/07/2025 1:43 AM [facility] pO2, Arterial 94 >70 mmHg LAB HEMATOLOGY METHOD 04/07/2025 1:43 AM [facility] SO2, Measured, Arterial 99(H) 94 - 98 % LAB HEMATOLOGY METHOD 04/07/2025 1:43 AM EST [facility] Base Excess, Arterial 1.0 -2.0 - 3.0 mmol/L LAB HEMATOLOGY METHOD 04/07/2025 1:43 AM [facility] Bicarbonate, Calculated, Arterial 27(H) 22 - 26 mmol/L LAB HEMATOLOGY METHOD 04/07/2025 1:43 AM [facility] Hematocrit, Whole Blood 34.9(L) 40.0 - 51.0 % LAB HEMATOLOGY METHOD 04/07/2025 1:43 AM EST [facility] Sodium, Whole Blood 139 136 - 145 mmol/L LAB HEMATOLOGY METHOD 04/07/2025 1:43 AM [facility] Potassium, Whole Blood 3.9 3.6 - 4.9 mmol/L LAB HEMATOLOGY METHOD 04/07/2025 1:43 AM [facility] Chloride, Whole Blood 106 97 - 107 mmol/L LAB HEMATOLOGY METHOD 04/07/2025 1:43 AM [facility] Glucose, Whole Blood 105(H) 74 - 99 mg/dL LAB HEMATOLOGY METHOD 04/07/2025 1:43 AM [facility] Ionized Calcium, Whole Blood 4.6 4.6 - 5.1 mg/dL LAB HEMATOLOGY METHOD 04/07/2025 1:43 AM [facility] Lactate, Arterial, Whole Blood 0.8 0.5 - 1.6 mmol/L LAB HEMATOLOGY METHOD 04/07/2025 1:43 AM [facility] Blood Arterial blood specimen / Unknown Arterial Puncture / Unknown 04/07/2025 1:18 AM EST 04/07/2025 1:39 AM EST us Amanda Stout STRIKER OUT, DNP LAB BLOOD ORDERABLES Elena hunter Result [facility] [address] [place] [address] * Dalia auris Surveillance by PCR (04/06/2025 3:55 PM EST) Dalia auris PCR Result Not Detected Not Detected 04/07/2025 12:43 PM EST [facility] Swab (Axilla and Groin) Non-blood Collection / Unknown 04/06/2025 3:55 PM EST 04/06/2025 4:04 PM EST Narrative [facility] - 04/07/2025 12:43 PM EST This PCR assay was developed and its performance characteristics determined by [facility] as appropriate for clinical purposes. This assay has not been cleared or approved by the FDA, but is performed in a CLIA regulated laboratory that is qualified to perform high-complexity testing. us Everett Beyer DO LAB MICROBIOLOGY - GENERAL OR DERABLES Final Result Performing Organization Address [facility] de Phone Number [facility] [address] [place] [address] * Multi Drug Resistance Test (04/06/2025 3:55 PM EST) Pathologist [facility] Culture No growth at day 1 04/08/2025 7:58 AM EST [facility] Swab (Nares and Catie Rectal) Non-blood Collection / Unknown 04/06/2025 3:55 PM EST 04/06/2025 4:04 PM EST Narrative [facility] - 04/08/2025 7:58 AM EST This test was developed and its performance characteristics determined by the [facility]. Although the media is FDA-approved, it is not FDA-approved for all specimen types submitted. The FDA has determined that such clearance or approval is not necessary. This test is used for surveillance purposes. It should not be regarded as investigational or for research. The [facility] is certified under the Clinical Laboratory Improvement Amendments of 1988 (CLIA-88) as qualified to perform high complexity clinical laboratory testing. us Everett Beyre DO LAB MICROBIOLOGY - GENERAL OR DERABLES Final Result [facility] [address] [place] [address] * AR CRITICAL CARE, E/M 30-74 MINUTES (04/06/2025 2:56 [...] IN CLINIC/BEDSIDE ORDERABL ES Final Result * Surgical Pathology Exam (04/06/2025 11:36 AM EST) Case Report Surgical Pathology Case: [id number] Authorizing Provider: Vivek Vitale MD Collected: 04/06/2025 1136 Ordering Location: [facility] Received: 04/06/2025 1422 Pathologist: Cindy Hammer MD Specimens: A) - Lymph Node (specify site):, Level 8 B) - Esophagus, esophagogastrectom y C) - Esophagus, esophageal anastomotic margin D) - Esophagus, gastric anastomotic margin E) - Esophagus, final gastric margin 10:32 AM EST [facility] Final Diagnosis A. LYMPH NODE, [...] GASTRIC MARGIN, EXCISION: - NEGATIVE FOR MALIGNANCY. 5 10:32 AM EST [facility] at 1032 EST Synoptic Checklist [...] Findings: Low-grade glandular dysplasia 5 10:32 AM EST [facility] Clinical Information Malignant neoplasm of lower third of esophagus 5 10:32 AM EST [facility] Special and Immunohistochemical Stains IHC: A1-2 Velez Cytokeratin AE1 AE3: negative for tumor cells in lymph node All controls show appropriate reactivity. All immunohistochemist ry, in situ hybridization, and histochemical tests were developed by and are performed at the [facility], [address] [place] [address]. All tests reported here, except those addressing [...] on decalcified specimens. 5 10:32 AM [facility] Gross Description A. LEVEL 8 Specimen [...] cm in greatest dimension. Gross photographs taken. Tobacco Stripping Machine Operator sections are submitted as follows: B1-B3 esophageal [...] node, bisected Cold Time: 1h 59m Nancy Dickey C. ESOPHAGEAL ANASTOMOTIC MARGIN Specimen received [...] prominent foldings. No abnormalities are grossly identified. Tobacco Stripping Machine Operator sections of margin to mucosa submitted in E1, en face. Cold Time: 1h 30m Nancy Dickey 10:32 AM EST [facility] Note: A resident was involved in the service. I attest I examined the relevant preparations for the specimens and confirmed the diagnosis or interpretation. 10:32 AM EST [facility] Tissue Structure of lymph node [...] Vitale MD LAB PATHOLOGY ORDERABLES Final Result [facility] [address] [place] [address] * Peripheral IV (04/06/2025 8:08 AM EST) Narrative Vivek Vitale MD - 04/06/2025 8:08 AM EST Vivek Vitale MD 04/06/2025 8:40 AM Peripheral IV Inserted by: Vivek Vitale MD Placement Needle size: 14 G Location: hand Local anesthetic: none Site prep: alcohol Technique: anatomical landmarks Attempts: 1 us Vivek Vitale MD ANESTHESIA ORDERABLES Final Res ult * PB ANESTHESIA NON-TIMED PROCEDURE PLACEHOLDER (04/06/2025 8:07 AM EST) Narrative Vivek Vitale MD - 04/06/2025 8:07 AM EST Vivek [...] Vivek Vitale MD Resident: Amy Mccarthy MD us Vivek Vitale MD ANESTHESIA ORDERABLES Final Res ult * AR AN ELECTIVE ENDOTRACHEAL AIRWAY, PB ANESTHESIA PLACEHOLDER (04/06/2025 7:39 AM EST) Narrative Vivek Vitale MD - 04/06/2025 7:39 AM EST Vivek [...] Additional Comments Atraumatic. No change to dentition. Vivek Vitale MD ANESTHESIA ORDERABLES Final Res ult * Type and screen (04/06/2025 7:05 AM EST) ABO/Rh O Positive 04/06/2025 7:17 AM EST [facility] Antibody Screen Negative 04/06/2025 7:17 AM EST [facility] Specimen Expiration 04/09/2025 23:59 04/06/2025 7:17 AM EST [facility] Blood Venous blood specimen / Unknown Venipuncture / Unknown 04/06/2025 7:05 AM EST 04/06/2025 7:17 AM EST Vivek Vitale MD LAB BLOOD BANK TEST ORDERABLES Final Result BLOOD BANK [address] * Pulmonary function testing (03/12/2025 12:36 PM EDT) Anatomical Region Laterality Modality PFT Narrative 03/12/2025 4:07 PM EDT Pulmonary Function Testing Report Edwin Cook underwent pulmonary function testing today at the [facility]. The patient underwent spirometry, lung volumes by [...] There are no prior studies for comparison. us Everett Beyer DO PFT ORDERABLES Final Result * PET/CT FDG Skull Base To Mid Thigh (03/12/2025 11:00 AM EDT) Anatomical Region Laterality Modality Positron Emissio n Tomography (PET) Impressions 03/12/2025 4:32 PM EDT 1. Interval decreased extent, size and FDG uptake of previously seen intensely hypermetabolic distal esophageal/GE junction circumferential thickening with residual FDG uptake that might represent postradiation inflammatory changes given the recent completion of radiation therapy, which limits evaluation for metabolically active residual disease. Short-term follow-up might be considered. 2. Focal intensity activity fusing to the right lateral wall of the distal rectum/anorectal region, suspicious for underlying polyp/lesion. Further assessment with colonoscopy/proctoscopy or rectal MRI recommended. 3. No evidence of metabolically active regional oumar or distant metastatic disease. CRITICAL RESULT: No. COMMUNICATION: Per this written report. By electronically signing this report, I, the attending physician, attest that I have personally reviewed the images/data for the above examination(s) and agree with the final edited report. 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 He completed chemoradiation therapy 01/31/2025. The patient has a history of Crohn s disease and GERD. This PET/CT is done for initial staging and Subsequent treatment strategy TECHNIQUE: Preparation: Last oral intake (except water) on March 11 2025 at 10:00 PM. Diabetic: No. Blood glucose at time of FDG administration: 111 mg/dL. Radiopharmaceutical: 10.5 mCi of F-18 FDG administered intravenously at left antecubital fossa at 09:55. Incubation interval: 53 minutes. Oral contrast: Not applicable. Positioning: Arms raised. PET/CT scanner: [facility] 550 PET/CT acquisition: [id number]-bn-was-thighs. Standardized uptake value (SUV): Corrected for body weight only. CT: Low-dose, [id number]-[id number], without intravenous contrast. TOTAL DLP (Dose Length Product): 752.76 mGy cm. COMPARISON/CORRELATION: Compared to FDG PET/CT December 03, 2024 performed at another facility where standardized uptake value (SUV) measurements may not be comparable to [facility] SUV measurements due to tumor biology, incubation period, size and location of the lesion, and lean body mass. Head MRI October 26, 2024. FINDINGS: Technical quality: Diagnostic. Measurements: Unless otherwise specified, all SUVs refer to maximum value in the target (mSUV). Reference: Reference: mean SUV liver: 3.15; previously: 2.17. CT linear measurements performed on axial images. Head and Neck: No suspicious metabolically active lesions within the head and neck. No suspicious metabolically active or pathologically enlarged adenopathy. Photopenic right parietal encephalomalacia, from old insult and consistent with known history of stroke. Unremarkable thyroid gland. Clear paranasal sinuses and mastoid air-cells. Chest: Interval decreased extent, size and FDG uptake of previously seen intensely hypermetabolic distal esophageal/GE junction circumferential thickening with with maximum SUV of 5.6 compared to 11.3 and the prior scan. No suspicious metabolically active lesions within the lung. No suspicious metabolically active or pathologically enlarged hilar or mediastinal adenopathy. No suspicious pulmonary nodules or masses. Bilateral lung scarring. Sequelae of prior granulomatous insult. Normal caliber of the thoracic aorta. Aortic and coronary calcifications. No pleural effusion, pericardial effusion or pneumothorax. Abdomen and Pelvis: Focal intensity activity fusing to the right lateral wall of the distal rectum/anorectal region maximum SUV 17 image 105. No suspicious metabolically active lesions within the abdomen and pelvis. No suspicious metabolically active or pathologically enlarged retroperitoneal or pelvic adenopathy. Solid Abdominal Organs: No suspicious focal hypermetabolic lesions in the liver significantly greater than the heterogeneous physiologic uptake. Unremarkable noncontrast appearance of the liver. Unremarkable gallbladder. No biliary dilatation. No aerobilia. Unremarkable noncontrast appearance of the spleen. Unremarkable kidneys. No hydronephrosis. No suspicious adrenal masses. No suspicious pancreatic findings. GI Tract/Mesentery/Peritoneum: Left upper quadrant gastrostomy tube in place. Physiologic bowel activity, without suspicious focal FDG uptake. The large and small bowel appear normal in caliber. No suspicious peritoneal/mesenteric findings. Pelvic Viscera: No pelvic masses Unremarkable urinary bladder Vasculature: Normal caliber of the abdominal aorta Calcified atherosclerotic changes. Free Fluid: No ascites or drainable fluid collection Skeleton and Soft Tissues: No suspicious metabolically active osseous or soft tissue lesions. No aggressive osseous lytic or sclerotic lesions. Nonspecific hypermetabolic activity in the left infraspinatus muscle with maximum SUV 4.2, likely physiologic. Multilevel degenerative changes with L4-S1 posterior lumbar fusion. Procedure Note Caden Quintana MD - 03/12/2025 CLINICAL INDICATION: A 69-year-old male with a history of distal esophageal poorlydifferentiated adenocarcinoma diagnosed via biopsy on October 23, 2024,status post EGD with laparoscopic-assisted PEG placement on December 12, 2024,due to progressive dysphagia and inability to maintain nutrition orhydration. He completed chemoradiation therapy 01/31/2025. The patient has a history of Crohn s disease and GERD. This PET/CT is done for initial staging and Subsequent treatmentstrategy TECHNIQUE: Preparation: Last oral intake (except water) on March 11 2025 at 10:00PM. Diabetic: No. Blood glucose at time of FDG administration: 111 mg/dL. Radiopharmaceutical: 10.5 mCi of F-18 FDG administered intravenously atleft antecubital fossa at 09:55. Incubation interval: 53 minutes. Oral contrast: Not applicable. Positioning: Arms raised. PET/CT scanner: [facility] 550 PET/CT acquisition: Disrhs-df-tgo-thighs. Standardized uptake value (SUV): Corrected for body weight only. CT: Low-dose, skd-ijruyf-oerl, without intravenous contrast. TOTAL DLP (Dose Length Product): 752.76 mGy cm. COMPARISON/CORRELATION: Compared to FDG PET/CT December 03, 2024 performed at another facility wherestandardized uptake value (SUV) measurements may not be comparable to [facility] measurements due to tumor biology, incubation period, size andlocation of the lesion, and lean body mass. Head MRI October 26, 2024. FINDINGS: Technical quality: Diagnostic. Measurements: Unless otherwise specified, all SUVs refer to maximum valuein the target (mSUV). Reference: Reference: mean SUV liver: 3.15; previously: 2.17. CT linear measurements performed on axial images. Head and Neck: No suspicious metabolically active lesions within the head and neck. No suspicious metabolically active or pathologically enlargedadenopathy. Photopenic right parietal encephalomalacia, from old insult and consistentwith known history of stroke. Unremarkable thyroid gland. Clear paranasal sinuses and mastoid air-cells. Chest: Interval decreased extent, size and FDG uptake of previously seenintensely hypermetabolic distal esophageal/GE junction circumferentialthickening with with maximum SUV of 5.6 compared to 11.3 and the priorscan. No suspicious metabolically active lesions within the lung. No suspicious metabolically active or pathologically enlarged hilar ormediastinal adenopathy. No suspicious pulmonary nodules or masses. Bilateral lung scarring. Sequelae of prior granulomatous insult. Normal caliber of the thoracic aorta. Aortic and coronarycalcifications. No pleural effusion, pericardial effusion or pneumothorax. Abdomen and Pelvis: Focal intensity activity fusing to the right lateral wall of the distalrectum/anorectal region maximum SUV 17 image 105. No suspicious metabolically active lesions within the abdomen andpelvis. No suspicious metabolically active or pathologically enlargedretroperitoneal or pelvic adenopathy. Solid Abdominal Organs: No suspicious focal hypermetabolic lesions in the liver significantlygreater than the heterogeneous physiologic uptake. Unremarkablenoncontrast appearance of the liver. Unremarkable gallbladder. No biliary dilatation. No aerobilia. Unremarkable noncontrast appearance of the spleen. Unremarkable kidneys. No hydronephrosis. No suspicious adrenal masses. No suspicious pancreatic findings. GI Tract/Mesentery/Peritoneum: Left upper quadrant gastrostomy tube in place. Physiologic bowel activity, without suspicious focal FDG uptake. The large and small bowel appear normal in caliber. No suspicious peritoneal/mesenteric findings. Pelvic Viscera: No pelvic masses Unremarkable urinary bladder Vasculature: Normal caliber of the abdominal aorta Calcified atherosclerotic changes. Free Fluid: No ascites or drainable fluid collection Skeleton and Soft Tissues: No suspicious metabolically active osseous or soft tissue lesions. No aggressive osseous lytic or sclerotic lesions. Nonspecific hypermetabolic activity in the left infraspinatus muscle withmaximum SUV 4.2, likely physiologic. Multilevel degenerative changes with L4-S1 posterior lumbar fusion. IMPRESSION: 1.Interval decreased extent, size and FDG uptake of previously seenintensely hypermetabolic distal esophageal/GE junction circumferentialthickening with residual FDG uptake that might represent postradiationinflammatory changes given the recent completion of radiation therapy,which limits evaluation for metabolically active residual disease.Short-term follow-up might be considered. 2.Focal intensity activity fusing to the right lateral wall of the distalrectum/anorectal region, suspicious for underlying polyp/lesion. Furtherassessment with colonoscopy/proctoscopy or rectal MRI recommended. 3.No evidence of metabolically active regional oumar or distantmetastatic disease. CRITICAL RESULT: No. COMMUNICATION: Per this written report. By electronically signing this report, I, the attending physician, attestthat I have personally reviewed the images/data for the aboveexamination(s) and agree with the final edited report. Drafted by RACHAEL Mcintosh on 03/12/2025 12:32 PM Final report signed by Caden Pablo MD on 03/12/2025 4:32 PM Everett Beyer DO IMG NM PROCEDURES Final Resul t * Hepatitis C Antibody - ED (10/25/2024 6:02 PM EDT) Hepatitis C Antibody Negative Negative 10/25/2024 7:44 PM EDT [facility] Blood Venous blood specimen / Unknown Venipuncture / Unknown 10/25/2024 6:02 PM EDT 10/25/2024 6:14 PM EDT Scott Rankin MD LAB BLOOD ORDERABLES Fi nal Result [facility] [address] [place] [address] from Last 3 Months or Most Recently Relevant to Health Maintenance Additional Health Concerns Active Problems Noted Date Diagnosed Date Autogenerated Problem 03/12/2025 Insurance [facility] MEDICARE Advance Directives * Full Code (Latest Code Status on File) Date Activated Date Inactivated Comments 04/06/2025 1:38 PM 04/15/2025 6:25 PM Question Answer Comments I have reviewed the capacity from the link above and, if needed, have updated to appropriate status: Yes Care Teams Internet Sales Manager Relationship Specialty Start Date End Date Jatinder Clifford MD PCP - General Family Medicine 11/05/24
--- OUTSIDE RECORDS SUMMARY | 2025-05-12 14:14 | XMS_ITS | Encounter Summary ---
Author Organization Healthcare Address [address] [place] [address] Care Team Providers Care Seat Covers Trimmer Name Role Phone Jatinder Clifford MD Primary Care Provider Samra vailable Encounter Details Date Type Department Care Team (Latest Contact Info) Description 05/09/2025 Travel Social History Tobacco Use Types Packs/Day [...] any time in the past 12 m [facility], were you homeless or living in a penitentiary (including now)? No 04/07/2025 [facility] Utilities Answer Date Recorded In the [...] Pav CC Head, Neck & Respiratory [address] [facility] [place] [address] Everett Beyer, DO [address] [facility] [address] [place] [address] documented as of this encounter Goals Goal [...] documented as of this encounter Care Teams Seat Covers Trimmer Relationship Specialty Start Date End Date Jatinder Clifford MD PCP - General Family Medicine 11/05/24 documented as of this encounter
--- OUTSIDE RECORDS SUMMARY | 2025-05-12 14:14 | XMS_ITS | Encounter Summary ---
Author Organization Healthcare Address [address] [place] [address] Care Team Providers Care Electronic Game Developer Name Role Phone Jatinder Clifford MD Primary Care Provider Samra vailable Encounter Details Date Type Department Care Team (Latest Contact Info) Description 04/21/2025 Travel Social History Tobacco Use Types Packs/Day [...] in the past 12 m [facility], were you homeless or living in a detention (including now)? No 04/07/2025 [facility] Utilities Answer Date Recorded In the [...] Pav CC Head, Neck & Respiratory [address] [facility] [place] [address] Everett Beyer, DO [address] [facility] [address] [place] [address] documented as of this encounter Goals Goal [...] documented as of this encounter Care Teams Electronic Game Developer Relationship Specialty Start Date End Date Jatinder Clifford MD PCP - General Family Medicine 11/05/24 documented as of this encounter
--- OUTSIDE RECORDS SUMMARY | 2025-05-12 14:15 | XMS_ITS | Encounter Summary ---
Author Organization Healthcare Address [address] [place] [id number] Care Team Providers Care Sole Molder Name Role Phone Marzena Sosa LPN Unavailable Unavailanai e Jatinder Clifford MD Primary Care Provider Samra vailable Encounter Details Date Type Department Care Team (Late st Contact Info) Description 11/12/2024 Lab Requisition [facility] [address] [place] [address] Everett Beyer, DO [address] [phone] Dysphagia, unspecified Social History Tobacco Use Types Packs/Day Years Used Date Smoking Tobacco: Former Cigarettes 3 33 1 421 - 2000 Passive Smoke Exposure: Past Alcohol [...] any time in the past 12 m [facility], were you homeless or living in a [...] & Respiratory [address] [place] [address] Everett Beyer, DO [address] [place] [address] documented as of this encounter Procedures Procedure Name Priority Date/Time Associated Diagnosis Comments SURGICAL PATHOLOGY CONSULT Routine 11/12/2024 10:32 AM EDT Dysphagia, unspecified documented in this encounter Results * Surgical Pathology Consult (11/12/2024 10:32 AM EDT) Case Report Sugical Pathology Consult Case: [id number] Authorizing Provider: Everett Beyer DO Collected: 11/12/2024 1032 Ordering Location: [facility] Lab Received: 11/12/2024 1032 Pathologist: Ed Mcclure MD Specimen: Esophagus, [id number] 11/13/2024 6:28 PM EDT [facility] Final Diagnosis ESOPHAGUS, DISTAL, BIOPSY (OUTSIDE CASE: [id number] COLLECTED ON 10/23/2024): - POORLY DIFFERENTIATED MALIGNANT NEOPLASM, FAVOR ADENOCARCINOMA - MMR PROTEINS INTACT (IHC) - CLDN18 IHC INTERPRETATION: POSITIVE (90% STAINING, PER REPORT) - HER2 (IHC) INTERPRETATION: NEGATIVE (SCORE: 0, PER REPORT) 11/13/2024 6:28 PM EDT [facility] at 1828 EDT Clinical Information R13.10 - Dysphagia, unspecified [ICD-10-CM] 11/13/2024 6:28 PM EDT [facility] Gross Description A. [id number] Received along with a corresponding pathology report from [facility]ology [facility] Cytology Laboratory are 9 slide(s) labeled outside case: [id number] collected on 10/23/2024. 11/13/2024 6:28 PM EDT [facility] Tissue Esophageal structure / Unknown 11/12/2024 10:32 AM EDT 11/12/2024 10:32 AM EDT Everett Beyer DO LAB PATHOLOGY ORDERABLES Elena l Result [facility] [address] [place] [address] documented in this encounter Visit Diagnoses Diagnosis [...] documented as of this encounter Care Teams Sole Molder Relationship Specialty Start Date End Date Jatinder Clifford MD PCP - General Family Medicine 11/05/24 Marzena Sosa LPN [facility] None TCM Nurse 10/28/24 11/27/24 documented as of this encounter
--- OUTSIDE RECORDS SUMMARY | 2025-05-12 14:15 | XMS_ITS | Encounter Summary ---
Author Organization Healthcare Address [address] [place] [address] Care Team Providers Care Machine Feeder Raw [employer] Name Role Phone Pcp, No Primary Care Provider UnavailMarzena Elliott LPN Unavailable Jatinder Samuel MD Primary Care Provider Samra vailable Encounter Details Date Type Department Care Team (Late st Contact Info) Description 10/27/2024 Lab Requisition [facility] [address] [place] [address] Preet Gay MD [address] [facility] [address] [place] [id number] Encounter for general adult medical examination without [...] any time in the past 12 m [facility], were you homeless or living in [...] Precautions Fall risk;Aspiration 10/27/2024 4:00 PM E DT Linh Meek RN documented in this encounter Plan of Treatment Upcoming Encounters Date Type Department Care Team (Late st Contact Info) Description 08/20/2025 10:15 AM EDT Office Visit [facility] [address] [place] [address] Everett Beyer, DO [address] [place] [address] documented as of this encounter Procedures Procedure Name Priority Date/Time Associated Diagnosis Comments MULTI DRUG RESISTANCE TEST Routine 10/27/2024 11:57 AM EDT Encounter for general adult medical examination without abnormal findings documented in this encounter Results * Multi Drug Resistance Test (10/27/2024 11:57 AM EDT) Culture No growth at day 1 10/28/2024 1:54 PM EDT [facility] Swab (Nares and Catie Rectal) 10/27/2024 11:57 AM EDT 10/27/2024 12:58 PM EDT Narrative [facility] - 10/28/2024 1:54 PM EDT This test was developed and its performance characteristics determined by the [facility]. Although the media is FDA-approved, it is not FDA-approved for all specimen types submitted. The FDA has determined that such clearance or approval is not necessary. This test is used for surveillance purposes. It should not be regarded as investigational or for research. The [facility] is certified under the Clinical Laboratory Improvement Amendments of 1988 (CLIA-88) as qualified to perform high complexity clinical laboratory testing. Preet Gay MD LAB MICROBIOLOGY - GEN ERAL ORDERABLES Final Result [facility] [address] [place] [address] documented in this encounter Visit Diagnoses Diagnosis Encounter for general adult medical examination without abnormal findings documented in this encounter Additional Health Concerns Assessment Noted Time A Body Mass Index follow-up plan has been documented for the patient 10/27/2024 3:35 PM EDT documented as of this encounter Care Teams Machine Feeder [employer] Relationship Specialty Start Date End Date Pcp, No [address] [place] [address] PCP - General Family Medicine 09/26/24 11/04/24 Jatinder Clifford MD PCP - General Family Medicine 11/05/24 Marzena Sosa LPN [facility] None TCM Nurse 10/28/24 11/27/24 documented as of this encounter
[2025-05-12 14:25] LABS: Hematocrit 39.3 % (42.0-52.0); Hemoglobin 13.5 g/dL (14.1-18.0); Immature Granulocytes % 0.3 %; Mean Corpuscular HGB Conc 34.4 g/dL (31.8-35.4); Mean Corpuscular Hemoglobin 31.9 pg (27.0-31.2); Mean Corpuscular Volume 92.9 fl (80-94); Nucleated Red Blood Cells % 0 %; Platelet Count 207 K/mm3 (142-424); Red Blood Count 4.23 M/mm3 (4.60-6.20); Red Cell Distribution Width-SD 41.3 fL; White Blood Count 9.1 K/mm3 (4.8-10.8)
[2025-05-12 14:50] LABS: Albumin Level 4.2 g/dl (3.5-5.0); Chloride 106 mmol/L (98-107); Potassium 4.0 mmoL/L (3.5-5.1); Sodium 143 mmol/L (136-145)
[2025-05-12 14:53] LABS: Alanine Aminotransferase 18 U/L (12-78); Albumin/Globulin Ratio 1.4 (1.1-1.8); Alkaline Phosphatase 109 U/L (38-126); Anion Gap 12.0 mEq/L (5-15); Aspartate Amino Transferase 27 U/L (17-59); Bilirubin,Total 0.6 mg/dl (0.2-1.3); Blood Urea Nitrogen 16 mg/dl (9-20); Carbon Dioxide 29 mmol/L (22.0-30.0); Creatinine,Serum 1.00 mg/dl (0.66-1.25); Estimated Glomerular Filt Rate 74 ml/min (>60); GFR (African American) 89 ML/MIN (>60); Globulin 3.1 g/dL (1.3-3.2); Total Protein,Serum 7.3 g/dl (6.3-8.2)
[2025-05-12 14:54] LABS: Calcium 9.8 mg/dl (8.4-10.2); Glucose 104 mg/dl (74-100)
[2025-05-12 15:10] LABS: T4 (Thyroxine) 8.9 ug/dl (5.53-11.0)
[2025-05-12 15:24] LABS: Thyroid Stimulating Hormone 13.60 uIU/mL (0.465-4.68)
== END 2025-05-12 23:59 | disposition home or self-care (01) ==
LOC: LAB 14:03
PROVIDERS: PCP Family Medicine; Visit Provider Internal Medicine Medical Oncology
DX: C15.9 Malignant neoplasm of esophagus, unspecified (principal); E03.9 Hypothyroidism, unspecified
CPT/HCPCS: 36415; 80053; 84436; 84443; 85025